=== PATIENT | male | born 1950 | race Caucasian/White ===

== ENCOUNTER → 2016-06-06 | Outpatient (CLI) | payer OTHER ==
[~2016-06-06] MED LIST: ACET-1311 PO; ADVIN25050 INH; ALBUAER INH; AMLO-114 PO; ASPI81TA28 PO; ATRINS INH; CARB25TA12 PO; CARB25TA14 PO; CARB25TA16 PO; CARB50TA3 PO; CHOL100010 PO; CHOL2000 PO; CLR/5 PO; CRD200 PO; CYM/30 PO; DOCU-94 PO; DOXY100C76 PO; FLM4 PO; FRS/40 PO; FURO-85 PO; FURO20TA PO; FURO40TA3 PO; HYDR100T12 PO; LEVA1.255 PO; LSN20 PO; LUBI8CAP4 PO; LVQ500 PO; MCRK20 PO; METH4PAK PO; METO-217 PO; METO50TA7 PO; MULT-506 PO; NRN100 PO; PANT1TAB48 PO; PANT20TA PO; POLY335019 PO; POTA20TA13 PO; PRD10 PO; PRED20TA PO; PSEU60TA80 PO; SIMV20TA2 PO; SPRIN INH; SPRIN/30 PO; VNTHFA/IN INH; XPNINS125 PO; XPNINS1255 INH
[2016-06-06 17:35] LABS: BLOOD UREA NITROGEN 14 mg/dl (7-18); BUN/CREATININE RATIO 10.1 (10-20); CALCIUM 8.5 mg/dl (8.5-10.1); CARBON DIOXIDE 28 mmol/L (21-32); CHLORIDE 105 mmol/L (98-107); GLUCOSE 129 mg/dl (70-99); POTASSIUM 3.7 mmol/L (3.5-5.1); SODIUM 144 mmol/L (136-145)
[2016-06-06 17:36] LABS: PHOSPHORUS 2.8 mg/dl (2.5-4.9)
--- NOTE | 2016-06-26 14:23 | CODING QUERY MEDICAL NECESSITY ---
SUPPORTING DIAGNOSIS NEEDED A supporting diagnosis is required for the test/procedure performed on this patient in order for us to be reimbursed by the patient's insurance. Please provide a supporting diagnosis for the following test/procedure listed below next to the test name along with your signature. *If there is no additional diagnosis for this patient that would support the following test/procedure please document that below next to the test/procedure. Test(s)/Procedure(s) that require a supporting diagnosis: * VITAMIN B-12 LEVEL DIAGNOSIS: * DOS: 06/06/16 Provider Signature: Date: Thank you Rosie Farr Health Information Management Once completed, please kindly fax back to [phone] For questions please call [phone]
== END | disposition home or self-care (01) ==
LOC: C.LABBFT 15:09
PROVIDERS: ATTEND Internal Medicine
DX: N17.9 Acute kidney failure, unspecified (principal); G62.9 Polyneuropathy, unspecified

== ENCOUNTER 2016-06-17 12:16 | Inpatient (IN) | payer OTHER ==
[~2016-06-17] VITALS: Ht 177.8 cm; Wt 100.4 kg
[~2016-06-17 12:16] MED LIST changes: -ADVIN25050 INH; -AMLO-114 PO; -ASPI81TA28 PO; -ATRINS INH; -CARB25TA12 PO; -CARB25TA14 PO; -CARB25TA16 PO; -CARB50TA3 PO; -CHOL2000 PO; -CLR/5 PO; -CRD200 PO; -CYM/30 PO; -DOXY100C76 PO; -FLM4 PO; -FRS/40 PO; -FURO-85 PO; -FURO20TA PO; -FURO40TA3 PO; -HYDR100T12 PO; -LEVA1.255 PO; -LUBI8CAP4 PO; -LVQ500 PO; -MCRK20 PO; -METH4PAK PO; -METO-217 PO; -METO50TA7 PO; -MULT-506 PO; -NRN100 PO; -PANT1TAB48 PO; -PANT20TA PO; -POTA20TA13 PO; -PRD10 PO; -PRED20TA PO; -PSEU60TA80 PO; -SIMV20TA2 PO; -SPRIN/30 PO; -VNTHFA/IN INH; -XPNINS125 PO; -XPNINS1255 INH
[2016-06-17] MEDS ORDERED: DOXY100C76 PO ×2 (13:55)
[2016-06-17] MEDS ORDERED: CARB25TA16 PO ×2 (13:55)
[2016-06-17] MEDS ORDERED: CLR/5 PO ×2 (13:55)
[2016-06-17] MEDS ORDERED: CARB25TA14 PO ×2 (13:55)
[2016-06-17] MEDS ORDERED: ALBUT/IPRATROP 3MG/0.5MG NEB 3 ML VIAL INH STA ×2 (14:14→16:47)
[2016-06-17] MEDS ORDERED: METHYLPREDNISOLONE 125 MG VIAL IV STA (14:14)
--- NOTE | 2016-06-17 14:26 | DIAGNOSTIC IMAGING REPORT ---
CHEST ONE VIEW PORTABLE CLINICAL HISTORY: EVALUATE RESPIRATORY DISTRESS. DYSPNEA COMPARISON STUDY: No previous studies for comparison. FINDINGS: Moderate cardiomegaly. Prior median sternotomy. Pulmonary vasculature is moderately prominent. IMPRESSION: Developing congestive heart failure Electronically signed by: Boni Sutton M.D. 06/17/2016 2:25 PM Dictated Date/Time: 06/17/2016 2:23 PM
[2016-06-17 15:39] LABS: URINE APPEARANCE CLEAR (CLEAR); URINE BILIRUBIN NEG (NEG); URINE COLOR YELLOW; URINE NITRITE NEG (NEG); URINE SPECIFIC GRAVITY 1.008 (1.000-1.030); UROBILINOGEN NEG (NEG)
[2016-06-17 15:42] LABS: MANUAL MICROSCOPIC REQUIRED? NO; REVIEW REQ? NO
[2016-06-17 16:09] LABS: BASO % 0.2 %; BASO ABS # 0.03 K/uL (0-0.2); COMPLETE YES; EOS % 0.1 %; HEMATOCRIT 37.3 % (42-52); IG% 0.8 %; LYMPH % 8.9 %; LYMPH ABS # 1.54 K/uL (1.2-3.4); MEAN CELL VOLUME 83.3 fL (80-100); MEAN CORPUSCULAR HEMOGLOBIN 26.6 pg (25-34); MEAN CORPUSCULAR HGB CONC 31.9 g/dl (32-36); MEAN PLATELET VOLUME 10.1 fL (7.4-10.4); MONO % 2.4 %; NEUT % 87.6 %; PLATELET COUNT 223 K/uL (130-400); RED BLOOD COUNT 4.48 M/uL (4.7-6.1); WHITE BLOOD COUNT 17.22 K/uL (4.8-10.8)
[2016-06-17 16:36] LABS: ALT/SGPT 11 U/L (12-78); AST/SGOT 19 U/L (15-37); BLOOD UREA NITROGEN 18 mg/dl (7-18); BUN/CREATININE RATIO 16.1 (10-20); CALCIUM 8.6 mg/dl (8.5-10.1); CARBON DIOXIDE 31 mmol/L (21-32); CHLORIDE 98 mmol/L (98-107); GLUCOSE 126 mg/dl (70-99); POTASSIUM 3.7 mmol/L (3.5-5.1); SODIUM 138 mmol/L (136-145)
[2016-06-17 16:47] LABS: ALB/GLOB RATIO 0.8 (0.9-2); ALKALINE PHOSPHATASE 82 U/L (45-117); CKMB/CK RATIO 6.8 (0-3.0)
[2016-06-17] MEDS ORDERED: CARB25TA12 PO ×2 (18:27)
--- NOTE | 2016-06-17 18:28 | History and Physical ---
History & Physical Date & Time of Service: Jun 17, 2016 at 18:11 Chief Complaint: Shortness Of Breath Primary Care Physician: Adonay Art M.D. History of Present Illness Source: patient, family 65yo male with history of COPD who presents with ongoing respiratory symptoms starting in April. He has had at least 3 rounds of antibiotics (amoxicillin, doxycycline, and then doxycycline again) along with 2 rounds of prednisone taper. He finished his most recent round of prednisone/doxycycline today. Despite these medications he has continued to do poorly. No fever but "felt warm" about 2 days ago. Some chills. Appetite has been poor since Thursday of last weekend. Had LE edema last week but none today. His weight at baseline is about 200 pounds; in the office recently it had climbed to as high as 220 pounds. He has had dyspnea at rest and with activity, cough, and significant fatigue. Some PND. Uses CPAP at HS but not oxygen. Has neb machine at home but has been out of the ampules. Past Medical/Surgical History PMH: 1. COPD 2. HTN 3. CAD 4. T2DM - diet controlled 5. Parkinson's disease 6. Hyperlipidemia 7. Allergic rhinitis 8. h/o paroxysmal atrial fibrillation 9. LES on CPAP at bedtime PSH: 1. appendectomy 2. CABG (double) - 2001 3. lumbar back surgery x 4 separate operations 4. inguinal hernia repair x 2 Family History mother - MGM, M aunt - CAD/MIs father - gastric cancer paternal side - some form of hematological disorder (unknown type) Social History Smoking Status: Current Every Day Smoker (<1/2 ppd; started teenager years; peak 2ppd) Smokeless Tobacco Use: No Alcohol Use: none Drug Use: none Marital Status: (in [place]; 3 children ) Housing status: lives with family Occupational Status: retired (construction/building homes ), disabled Immunizations History of Influenza Vaccine: Yes Influenza Vaccine Date: Mar 07, 2007 History of Tetanus Vaccine?: Yes Tetanus Immunization Date: Jul 19, 2010 History of Pneumococcal: Yes History of Hepatitis B Vaccine: No Multi-Drug Resistant Organisms History of MDRO: Yes Type of MDRO: MRSA Allergies Coded Allergies: BEE STING (Verified Allergy, Severe, ANAPHYLAXIS, 06/17/16) Benztropine (Verified Adverse Reaction, Intermediate, hallucinations/ mental confusion, 06/17/16) Eletriptan (Verified Adverse Reaction, Intermediate, CONFUSION, 06/17/16) Ropinirole (Verified Adverse Reaction, Unknown, unknown, 06/17/16) Home Medications Scheduled Albuterol (Proventil Hfa), 2 PUFFS INH QID Amiodarone HCl (Amiodarone HCl), 200 MG PO DAILY Amlodipine (Norvasc), 10 MG PO DAILY Aspirin (Aspirin Ec), 81 MG PO DAILY Carbidopa/Levodopa (Sinemet Cr 25MG/100MG), 2 TAB PO QAM Carbidopa/Levodopa (Sinemet 25MG/250MG), 1 TAB PO PM Carbidopa/Levodopa (Sinemet 25MG/100MG), 1 TAB PO qafternoon Cholecalciferol (Vitamin D), 4,000 INTER.UNIT PO DAILY Desloratadine (Clarinex), 5 MG PO DAILY Docusate Sodium (Colace), 100 MG PO BID Doxycycline Monohydrate (Monodox), 100 MG PO BID Duloxetine HCl (Cymbalta), 30 MG PO DAILY Fluticasone Prop/Salmeterol (Advair Diskus 250-50 Mcg/Dose), 1 PUFF INH Q12 Hydralazine Hcl (Apresoline), 1 TAB PO TID Lubiprostone (Amitiza), 8 MCG PO DAILY Metoprolol Succ (Toprol Xl) (Toprol-Xl), 75 MG PO HS Polyethylene Glycol 3350 (Miralax), 17 GM PO BID Simvastatin (Zocor), 20 MG PO QPM Tamsulosin HCl (Tamsulosin HCl), 0.4 MG PO HS Tiotropium [place] (Spiriva Handihaler), 1 PUFF INH QAM Scheduled PRN Acetaminophen (Tylenol), 650 MG PO Q6 PRN for Mild Pain Acetaminophen (Tylenol), 650 MG PO Q6 PRN for TEMP > 101 Review of Systems Constitutional: + chills, + fatigue, + fever, + weakness, + weight loss Eyes: No discharge, No redness ENT: + nasal symptoms, No sore throat, No trouble swallowing Respiratory: + cough, + dyspnea at rest, + dyspnea on exertion, + shortness of breath, + wheezing, No hemoptysis, No sputum Cardiovascular: + PND, + chest pain (tightness), + edema, + orthopnea Abdomen: No GI bleeding, No diarrhea, No nausea, No vomiting Musculoskeletal: + joint pain, + muscle pain Genitourinary - Male: No dysuria Neurologic: + balance problems, No paralysis Psychiatric: + anxiety, + depression symptoms Endocrine: + fatigue Hematologic / Lymphatic: No night sweats, No swollen lymph nodes Integumentary: + rash (groin) Physical Exam Vital Signs Date Time Temp Pulse Resp B/P Pulse Ox O2 Delivery O2 Flow Rate FiO2 06/17/16 16:47 67 18 113/50 95 Nasal Cannula 2.0 06/17/16 14:06 59 16 151/81 93 Room Air 06/17/16 12:34 95 Nasal Cannula 2.0 06/17/16 12:34 95 Nasal Cannula 2.0 06/17/16 12:34 36.5 60 22 138/77 94 Room Air General Appearance: no apparent distress, + obese, + pertinent finding ( resting tremors of upper extremities) Head: normocephalic, atraumatic Eyes: normal inspection, PERRL ENT: hearing grossly normal, TMs normal, pharynx normal Neck: supple, no adenopathy, thyroid normal, + pertinent finding (due to large neck difficult to assess JVD) Respiratory/Chest: no respiratory distress, no accessory muscle use, + crackles (both bases), + wheezing (mild end-exp) Cardiovascular: regular rate, rhythm, no gallop, no murmur, normal peripheral pulses Abdomen/GI: normal bowel sounds, non tender, soft, no organomegaly Back: normal inspection Extremities/Musculoskelatal: no pedal edema Neurologic/Psych: alert, normal mood/affect, normal reflexes, oriented x 3, + pertinent finding (mild stiffness of all 4 extremities; strength, however, is symmetric 5/5 x 4 extremities) Diagnostics Laboratory Results Results Past 24 Hours Test 06/17/16 14:25 06/17/16 15:30 06/17/16 15:43 Range/Units Influenza Type A Antigen Neg for Influ A NEG Influenza Type B Antigen Neg for Influ B NEG Urine Color YELLOW Urine Appearance CLEAR CLEAR Urine pH 8.0 4.5-7.5 Urine Specific [place] 1.008 1.000-1.030 Urine Protein NEG NEG Urine Glucose (UA) NEG NEG Urine Ketones NEG NEG Urine Occult Blood NEG NEG Urine Nitrite NEG NEG Urine Bilirubin NEG NEG Urine Urobilinogen NEG NEG Urine Leukocyte Esterase NEG NEG White Blood Count 17.22 4.8-10.8 K/uL Red Blood Count 4.48 4.7-6.1 M/uL Hemoglobin 11.9 14.0-18.0 g/dL Hematocrit 37.3 42-52 % Mean Corpuscular Volume 83.3 80-100 fL Mean Corpuscular Hemoglobin 26.6 25-34 pg Mean Corpuscular Hemoglobin Concent 31.9 32-36 g/dl Platelet Count 223 130-400 K/uL Mean Platelet Volume 10.1 7.4-10.4 fL Neutrophils (%) (Auto) 87.6 % Lymphocytes (%) (Auto) 8.9 % Monocytes (%) (Auto) 2.4 % Eosinophils (%) (Auto) 0.1 % Basophils (%) (Auto) 0.2 % Neutrophils # (Auto) 15.08 1.4-6.5 K/uL Lymphocytes # (Auto) 1.54 1.2-3.4 K/uL Monocytes # (Auto) 0.42 0.11-0.59 K/uL Eosinophils # (Auto) 0.01 0-0.5 K/uL Basophils # (Auto) 0.03 0-0.2 K/uL RDW Standard Deviation 54.1 36.4-46.3 fL RDW Coefficient of Variation 17.7 11.5-14.5 % Immature Granulocyte % (Auto) 0.8 % Immature Granulocyte # (Auto) 0.14 0.00-0.02 K/uL Sodium Level 138 136-145 mmol/L Potassium Level 3.7 3.5-5.1 mmol/L Chloride Level 98 98-107 mmol/L Carbon Dioxide Level 31 21-32 mmol/L Anion Gap 9.0 3-11 mmol/L Blood Urea Nitrogen 18 7-18 mg/dl Creatinine 1.10 0.60-1.40 mg/dl Est Creatinine Clear Calc Drug Dose 77.0 ml/min Estimated GFR () 80.1 Estimated GFR (Non- 69.1 BUN/Creatinine Ratio 16.1 10-20 Random Glucose 126 70-99 mg/dl Calcium Level 8.6 8.5-10.1 mg/dl Total Bilirubin 0.7 0.2-1 mg/dl Aspartate Amino Transf (AST/SGOT) 19 15-37 U/L Alanine Aminotransferase (ALT/SGPT) 11 12-78 U/L Alkaline Phosphatase 82 45-117 U/L Total Creatine Kinase 19 39-308 U/L Creatine Kinase MB 1.3 0.5-3.6 ng/ml Creatine Kinase MB Ratio 6.8 0-3.0 Troponin I < 0.015 0-0.045 ng/ml Pro-B-Type Natriuretic Peptide 1499 0-900 pg/ml Total Protein 7.3 6.4-8.2 gm/dl Albumin 3.3 3.4-5.0 gm/dl Globulin 4.0 2.5-4.0 gm/dl Albumin/Globulin Ratio 0.8 0.9-2 Microbiology Results 06/17/16 Blood Culture, Received Pending 06/17/16 Blood Culture, Received Pending Diagnostic Radiology cxr, portable - suspected developing pulmonary edema EKG NSR, no ST changes, prolonged QTc Impression Assessment and Plan 65yo male with h/o COPD, ongoing tobacco dependence, CAD s/p CABG, HTN, and parkinson's disease who presents with ongoing respiratory symptoms for several weeks despite multiple rounds of antibiotics and prednisone. His weight today is nearly 220 pounds; office records from 06/06/16 showed a weight of 205 pounds. Chest x-ray suggests pulmonary edema. 1. COPD with probable exacerbation - received IV steroids in the ER. Will continue these with solumedrol 40mg q8h. Scheduled nebs q6h. Pulmonary toilet/ incentive spirometry. Due to lack of sputum production and no pneumonia on chest x-ray will defer on antibiotics for now. With that said I cannot exclude a sinusitis but this is less likely. Check flu PCR due to recent fatigue, chills, etc. Continue advair /spiriva. 2. suspected acute/chronic diastolic CHF - echo from 12/2015 with preserved EF and grade 1 diastolic CHF. He has had orthopnea, weight gain, and worsening TUBBS and thus will give IV lasix tonight and reassess clinically in the AM. Check daily weights. 3. fatigue, anorexia - cannot exclude a concomitant infectious process. Blood cx's have been sent. U/a is unremarkable. Rapid flu is neg; will check PCR flu to be complete. Most recent TSH was normal. Check VBG to exclude hypercarbia. Consider repeat cxr tomorrow. 4. CAD s/p CABG - continue aspirin, BB, statin. Troponin is negative. EKG w/ o ischemic changes. 5. tobacco dependence - nicoderm patch. [employer] to quit. 6. parkinson's disease - continue sinemet - 2 tabs AM, 1 tab afternoon, 1 tab HS. 7. HTN - continue home meds. 8. h/o diet-controlled T2DM - in light of steroid use check FSBS ac/hs and place on novolog sliding with correction factor 30 and carb ratio of 1:10. Add long-acting insulin (lantus) as necessary. 9. LES - continue CPAP at HS. 10. leukocytosis - may be related to steroid use. Cannot exclude infectious process. Check sed rate. 11. prolonged QTc - check mag level. K was normal. 12. DVT proph - lovenox 40mg daily. 13. FEN - AHA/T2DM diet, BMP in am. 14. code status - full code level 1. 15. h/o a. fib - on amiodarone. Continue such. updated with plan of care. Level of Care Med/Surg Resuscitation Status FULL RESUSCITATION VTE Prophylaxis VTE Risk Assessment Done? Y/N: Yes Risk Level: Moderate Given or contraindicated: Enoxaparin (Lovenox)SQ Social Service Consult None Apply Note total visit time about 70 minutes Additional Copies To Jeromy Hanson M.D.
[2016-06-17] MEDS ORDERED: MAGNESIUM HYDROXIDE SUSP 30 ML UDC PO PRN (19:00)
[2016-06-17] MEDS ORDERED: ALUMINUM/MAGNESIUM/SIMETH (MAALOX MAX) 30 ML UDC PO PRN (19:00)
[2016-06-17] MEDS ORDERED: ACETAMINOPHEN 325 MG TAB PO PRN (19:00)
[2016-06-17] MEDS ORDERED: ONDANSETRON INJ 2 MG/ML 2 ML VIAL IV PRN (19:00)
[2016-06-17 19:18] LABS: MAGNESIUM 2.1 mg/dl (1.8-2.4)
[2016-06-17] MEDS ORDERED: FUROSEMIDE 40 MG/4 ML VIAL ONE (19:43)
[2016-06-17] MEDS ORDERED: GLUCAGON FOR INJ 1 MG VIAL SQ PRN (19:45)
[2016-06-17] MEDS ORDERED: GLUCOSE 40% GEL 15 GM TUBE PO PRN (19:45)
[2016-06-17] MEDS ORDERED: DEXTROSE 50% 50 ML SYR IV PRN (19:45)
[2016-06-17] MEDS ORDERED: GLUCOSE 10 TABS/TUBE PO PRN (19:45)
[2016-06-17 20:30] VITALS: BP 144/71; PULSE 68; TEMP 36.4; O2SAT 98; BMI 31.4
[2016-06-17] MEDS ORDERED: FUROSEMIDE INJ 20 MG in SYRINGE 0 ML IV ONE (21:00)
[2016-06-17] MEDS ORDERED: POTASSIUM CHLORIDE 20 MEQ TABCR PO ONE (21:00)
[2016-06-17] MEDS: NICOTINE 14 MG/24 HR TDSY TD SCH (21:00)
[2016-06-17 21:31] LABS: PROTHROMBIN TIME (PATIENT) 10.9 SECONDS (9.0-12.0)
--- NOTE | 2016-06-17 21:34 | EMERGENCY ROOM VISIT NOTE ---
History Report prepared by Sherrie: Evie Osman Under the Supervision of: Dr. Fox Whitt M.D. First contact with patient: 13:55 Chief Complaint: FLU LIKE SX Stated Complaint: SHORTNESS OF BREATH History of Present Illness The patient is a 65 year old male who presents to the Emergency Room with complaints of persistent shortness of breath that began several weeks ago. He currently rates his discomfort as a 2/10 in severity. The patient's notes that the patient has been on antibiotics and prednisone for a recent COPD exacerbation. She states that the patient has an inhaler to use at home. Today , the patient notes difficulty breathing, chest tightness, a nonproductive cough , headache, and increased fatigue. The patient's notes that the patient has had a recent decrease in appetite. The patient denies any history of UTIs. The patient's notes a resting tremor due to the patient's Parkinson's Disease. Pt denies LOC, fevers, chills, diaphoresis, visual changes, neck pain, chest pain, nausea, vomiting, abdominal pain, back pain, melena, hematochezia, urinary symptoms, numbness, lymphadenopathy, rash, or other complaints. Source of History: patient Onset: several weeks ago Position: other (global) Quality: other (shortness of breath) Timing: other (persistent) Associated Symptoms: + chest pain (tightness), + cough, + fatigue, + headache Note: Associated Symptoms: decrease in appetite Review of Systems See HPI for pertinent positives and negatives. A total of ten systems were reviewed and were otherwise negative. Past Medical & Surgical Medical Problems: (1) Abscess in epidural space of lumbar spine (2) Acute on chronic diastolic (congestive) heart failure (3) Back pain (4) Bronchitis (5) Bulging disc (6) Chest wall pain (7) COPD (chronic obstructive pulmonary disease) (8) COPD exacerbation (9) Fall (10) Hallucinations (11) Heart disease (12) Hyperlipidemia (13) Hypertension (14) inability to ambulate (15) Lumbar stenosis with neurogenic claudication (16) Parkinson disease (17) Parkinsons disease (18) Radicular pain of right lower extremity (19) Seizure-like activity (20) Shoulder pain Surgical Problems: (1) History of appendectomy (2) S/P CABG x 2 Family History FH: heart disease Hypertension Social History Smoking Status: Current Every Day Smoker Alcohol Use: none Drug Use: none Marital Status: Housing Status: assisted living Occupation Status: disabled Current/Historical Medications Scheduled Albuterol (Proventil Hfa), 2 PUFFS INH QID Amiodarone HCl (Amiodarone HCl), 200 MG PO DAILY Amlodipine (Norvasc), 10 MG PO DAILY Aspirin (Aspirin Ec), 81 MG PO DAILY Carbidopa/Levodopa (Sinemet Cr 25MG/100MG), 2 TAB PO QAM Carbidopa/Levodopa (Sinemet 25MG/250MG), 1 TAB PO PM Carbidopa/Levodopa (Sinemet 25MG/100MG), 1 TAB PO qafternoon Cholecalciferol (Vitamin D), 4,000 INTER.UNIT PO DAILY Desloratadine (Clarinex), 5 MG PO DAILY Docusate Sodium (Colace), 100 MG PO BID Doxycycline Monohydrate (Monodox), 100 MG PO BID Duloxetine HCl (Cymbalta), 30 MG PO DAILY Fluticasone Prop/Salmeterol (Advair Diskus 250-50 Mcg/Dose), 1 PUFF INH Q12 Hydralazine Hcl (Apresoline), 1 TAB PO TID Lubiprostone (Amitiza), 8 MCG PO DAILY Metoprolol Succ (Toprol Xl) (Toprol-Xl), 75 MG PO HS Polyethylene Glycol 3350 (Miralax), 17 GM PO BID Simvastatin (Zocor), 20 MG PO QPM Tamsulosin HCl (Tamsulosin HCl), 0.4 MG PO HS Tiotropium [place] (Spiriva Handihaler), 1 PUFF INH QAM Scheduled PRN Acetaminophen (Tylenol), 650 MG PO Q6 PRN for Mild Pain Acetaminophen (Tylenol), 650 MG PO Q6 PRN for TEMP > 101 Allergies Coded Allergies: BEE STING (Verified Allergy, Severe, ANAPHYLAXIS, 06/17/16) Benztropine (Verified Adverse Reaction, Intermediate, hallucinations/ mental confusion, 06/17/16) Eletriptan (Verified Adverse Reaction, Intermediate, CONFUSION, 06/17/16) Ropinirole (Verified Adverse Reaction, Unknown, unknown, 06/17/16) Physical Exam Vital Signs Date Time Temp Pulse Resp B/P Pulse Ox O2 Delivery O2 Flow Rate FiO2 06/17/16 16:47 67 18 113/50 95 Nasal Cannula 2.0 06/17/16 14:06 59 16 151/81 93 Room Air 06/17/16 12:34 95 Nasal Cannula 2.0 06/17/16 12:34 95 Nasal Cannula 2.0 06/17/16 12:34 36.5 60 22 138/77 94 Room Air Physical Exam GENERAL: Awake, alert, well-appearing, in no distress HENT: Normocephalic, atraumatic. Oropharynx unremarkable. EYES: Normal conjunctiva. Sclera non-icteric. NECK: Supple. No nuchal rigidity. FROM. No JVD. RESPIRATORY: Scattered wheezing and rhonchi bilaterally. CARDIAC: Regular rate, normal rhythm. Extremities warm and well perfused. Pulses equal. ABDOMEN: Soft, non-distended. No tenderness to palpation. No rebound or guarding. No masses. RECTAL: Deferred. MUSCULOSKELETAL: Chest examination reveals no tenderness. The back is symmetrical on inspection without obvious abnormality. There is no CVA tenderness to palpation. No joint edema. LOWER EXTREMITIES: 1+ lower extremity edema. Calves are equal size bilaterally and non-tender. No discoloration. NEURO: Resting tremor noted in the upper extremities Normal sensorium. No sensory or motor deficits noted. SKIN: No rash or jaundice noted. Medical Decision & Procedures ER Provider Diagnostic Interpretation: X-ray: Per my interpretation, radiologist review. CHEST ONE VIEW PORTABLE CLINICAL HISTORY: EVALUATE RESPIRATORY DISTRESS. DYSPNEA COMPARISON STUDY: No previous studies for comparison. FINDINGS: Moderate cardiomegaly. Prior median sternotomy. Pulmonary vasculature is moderately prominent. IMPRESSION: Developing congestive heart failure Electronically signed by: Boni Sutton M.D. 06/17/2016 2:25 PM Dictated Date/Time: 06/17/2016 2:23 PM Laboratory Results 06/17/16 15:43 Red Blood Count 4.48, Mean Corpuscular Volume 83.3, Mean Corpuscular Hemoglobin 26.6, Mean Corpuscular Hemoglobin Concent 31.9, Mean Platelet Volume 10.1, Neutrophils (%) (Auto) 87.6, Lymphocytes (%) (Auto) 8.9, Monocytes (%) (Auto) 2.4, Eosinophils (%) (Auto) 0.1, Basophils (%) (Auto) 0.2, Neutrophils # (Auto) 15.08, Lymphocytes # (Auto) 1.54, Monocytes # (Auto) 0.42, Eosinophils # (Auto) 0.01, Basophils # (Auto) 0.03 06/17/16 15:43 Test 06/17/16 14:25 06/17/16 15:30 06/17/16 15:43 Influenza Type A Antigen Neg for Influ A (NEG) Influenza Type B Antigen Neg for Influ B (NEG) Urine Color YELLOW Urine Appearance CLEAR (CLEAR) Urine pH 8.0 (4.5-7.5) Urine Specific [place] 1.008 (1.000-1.030) Urine Protein NEG (NEG) Urine Glucose (UA) NEG (NEG) Urine Ketones NEG (NEG) Urine Occult Blood NEG (NEG) Urine Nitrite NEG (NEG) Urine Bilirubin NEG (NEG) Urine Urobilinogen NEG (NEG) Urine Leukocyte Esterase NEG (NEG) White Blood Count 17.22 K/uL (4.8-10.8) Red Blood Count 4.48 M/uL (4.7-6.1) Hemoglobin 11.9 g/dL (14.0-18.0) Hematocrit 37.3 % (42-52) Mean Corpuscular Volume 83.3 fL (80-100) Mean Corpuscular Hemoglobin 26.6 pg (25-34) Mean Corpuscular Hemoglobin Concent 31.9 g/dl (32-36) Platelet Count 223 K/uL (130-400) Mean Platelet Volume 10.1 fL (7.4-10.4) Neutrophils (%) (Auto) 87.6 % Lymphocytes (%) (Auto) 8.9 % Monocytes (%) (Auto) 2.4 % Eosinophils (%) (Auto) 0.1 % Basophils (%) (Auto) 0.2 % Neutrophils # (Auto) 15.08 K/uL (1.4-6.5) Lymphocytes # (Auto) 1.54 K/uL (1.2-3.4) Monocytes # (Auto) 0.42 K/uL (0.11-0.59) Eosinophils # (Auto) 0.01 K/uL (0-0.5) Basophils # (Auto) 0.03 K/uL (0-0.2) RDW Standard Deviation 54.1 fL (36.4-46.3) RDW Coefficient of Variation 17.7 % (11.5-14.5) Immature Granulocyte % (Auto) 0.8 % Immature Granulocyte # (Auto) 0.14 K/uL (0.00-0.02) Erythrocyte Sedimentation Rate 23 mm/hr (0-14) Anion Gap 9.0 mmol/L (3-11) Est Creatinine Clear Calc Drug Dose 77.0 ml/min Estimated GFR () 80.1 Estimated GFR (Non- 69.1 BUN/Creatinine Ratio 16.1 (10-20) Calcium Level 8.6 mg/dl (8.5-10.1) Magnesium Level 2.1 mg/dl (1.8-2.4) Total Bilirubin 0.7 mg/dl (0.2-1) Aspartate Amino Transf (AST/SGOT) 19 U/L (15-37) Alanine Aminotransferase (ALT/SGPT) 11 U/L (12-78) Alkaline Phosphatase 82 U/L (45-117) Total Creatine Kinase 19 U/L (39-308) Creatine Kinase MB 1.3 ng/ml (0.5-3.6) Creatine Kinase MB Ratio 6.8 (0-3.0) Troponin I < 0.015 ng/ml (0-0.045) Pro-B-Type Natriuretic Peptide 1499 pg/ml (0-900) Total Protein 7.3 gm/dl (6.4-8.2) Albumin 3.3 gm/dl (3.4-5.0) Globulin 4.0 gm/dl (2.5-4.0) Albumin/Globulin Ratio 0.8 (0.9-2) Laboratory results reviewed by me Medications Administered Medications (Trade) Dose Ordered Sig/Igor Route Start Time Stop Time Status Last Admin Dose Admin Albuterol/ Ipratropium (Duoneb) 3 ml NOW STAT INH 06/17/16 14:14 06/17/16 14:16 DC 06/17/16 14:48 3 ML Methylprednisolone Sodium Succinate (Solu-Medrol IV) 125 mg NOW STAT IV 06/17/16 14:14 06/17/16 14:16 DC 06/17/16 14:48 125 MG Albuterol/ Ipratropium (Duoneb) 3 ml NOW STAT INH 06/17/16 16:47 06/17/16 16:48 DC 06/17/16 17:11 3 ML ECG Indication: SOB/dyspnea Rate (beats per minute): 59 Rhythm: sinus bradycardia Findings: PVC, no acute ischemic change, prolonged QT ED Course 1413: The patient was evaluated in room C1B. A complete history and physical exam was performed. 1414: Ordered Solu-Medrol IV 125 mg IV, DuoNeb 3 ml INH. 1540: I reevaluated the patient and he is feeling a little bit better after the breathing treatment. 1647: Ordered DuoNeb 3 ml INH. 1735: I reevaluated the patient and he is resting comfortably. I discussed the exam findings with him and his and I discussed the treatment plan. He verbalized complete understanding and agreement. He will be evaluated for further treatment. 173: I discussed the patients case with ADRIANO Tirado. He is going to evaluate the patient for further treatment. Medical Decision Triage Nursing notes reviewed. The patient's presentation and history were concerning for respiratory issues and lack of improvement with outpatient treatment. Etiologies such as pneumonia, COPD, reactive airway disease, CHF, cardiac ischemia, pulmonary embolism, pneumothorax, musculoskeletal, infections, gastrointestinal, as well as others were entertained. The patient was evaluated. Unfortunately despite antibiotics and prednisone to his breathing issues have worsened. He was given a DuoNeb 2 and Solu-Medrol. Chest x-ray was performed and was concerning for some mild CHF. CBC revealed a leukocytosis. The patient is currently taking prednisone. Urinalysis flu testing, and chemistry panel unremarkable. Cardiac markers were negative. BNP was moderately elevated. Given the x-ray, BNP, and his physical examination was performed edema there was concerns about new onset CHF in addition to his history of COPD. Further evaluation and management will be necessary in the hospital to further elucidate issue. The patient and family were in agreement. Internal medicine was consulted. Patient was evaluated for further management. The chart was completed utilizing [employer] Speech voice recognition software. Grammatical errors, random word insertions, pronoun errors, and incomplete sentences are an occasional consequence of this system due to software limitations, ambient noise, and hardware issues. Any formal questions or concerns about the content, text, or information contained within the body of this dictation should be directly addressed to the physician for clarification. Consults Time Called: 1737 Consulting Physician: ADRIANO Tirado Returned Call: [phone] I discussed the patients case with ADRIANO Tirado. He is going to evaluate the patient for further treatment. Impression Primary Impression: Shortness of breath Additional Impressions: New onset of congestive heart failure COPD (chronic obstructive pulmonary disease) Weakness Scribe Attestation The scribe's documentation has been prepared under my direction and personally reviewed by me in its entirety. I confirm that the note above accurately reflects all work, treatment, procedures, and medical decision making performed by me. Departure Information Dispostion Being Evaluated By Hospitalist Prescriptions Carbidopa/Levodopa (Sinemet 25MG/100MG) Tab 1 TAB PO qafternoon, #30 TAB 1 Refill Prov: Shayne Rosen MD 06/17/16 Referrals Jeromy Hanson M.D. (PCP) Problem Qualifiers
[2016-06-17 21:40] LABS: VEN BLD GAS O2 SATURATION 72.7 %; VEN BLOOD GAS BASE EXCESS 6.7 mmol/L
[2016-06-17 21:43] VITALS: PULSE 76; O2SAT 96
[2016-06-17] MEDS: ALBUT/IPRATROP 3MG/0.5MG NEB 3 ML VIAL INH SCH (21:43)
[2016-06-17] MEDS: NYSTATIN POWDER 15GM BTL EXT SCH (22:13)
[2016-06-17] MEDS: FLUTICASONE/SALMETEROL 250/50 (ADVAIR) 14 PUFF/1 INHALER INH SCH (22:14)
[2016-06-17 22:16] VITALS: BP 123/85; PULSE 81
[2016-06-17] MEDS: DOCUSATE SODIUM 100 MG CAP PO SCH (22:18)
[2016-06-17] MEDS: TAMSULOSIN HCL 0.4 MG CAP PO SCH (22:18)
[2016-06-17] MEDS: POLYETHYLENE (MIRALAX) 17 GM PACK PO SCH (22:19)
[2016-06-17] MEDS: GUAIFENESIN 600 MG TABCR PO SCH (22:21)
[2016-06-17] MEDS: CARBIDOPA/LEVODOPA 25-250 1 EA TAB PO SCH (22:21)
[2016-06-17] MEDS: METOPROLOL SUCC 25MG EXT REL TAB PO SCH (22:22)
[2016-06-17] MEDS: METHYLPREDNISOLONE IV 40 MG in SYRINGE 0 ML IV SCH (22:23)
[2016-06-17] MEDS: SIMVASTATIN 20 MG TAB PO SCH (22:23)
[2016-06-17] MEDS: ACETAMINOPHEN 325 MG TAB PO PRN (22:43)
[2016-06-17] MEDS: ENOXAPARIN 40 MG/0.4 ML SYR SQ SCH (22:44)
[2016-06-17] MEDS: INSULIN ASPART 100 UNITS/ML 3 ML PEN SC SCH (22:50)
[2016-06-17 23:28] VITALS: BP 108/61; PULSE 71; TEMP 36.4; O2SAT 96
[2016-06-18] VITALS (8 sets, daily range): BP systolic 130–132; BP diastolic 59–69; PULSE 62–106; TEMP 36.3–37.1; O2SAT 95–98
[2016-06-18 01:43] LABS: INFLUENZA A PCR Neg for Influ A (NEG); INFLUENZA B PCR Neg for Influ B (NEG)
[2016-06-18] MEDS ORDERED: PNEUMOCOCCAL ADMINISTRATION CHARGE ONE (04:15)
[2016-06-18] MEDS ORDERED: PNEUMOCOCCAL POLYSACCHARIDES 25 MCG/0.5 ML VIAL/SYR IM. ONE (04:15)
[2016-06-18] MEDS: METHYLPREDNISOLONE IV 40 MG in SYRINGE 0 ML IV SCH ×2 (05:40→12:58)
[2016-06-18] MEDS: TIOTROPIUM BROMIDE 5 PUFF/90 MCG INH INH SCH (07:59)
[2016-06-18] MEDS: FLUTICASONE/SALMETEROL 250/50 (ADVAIR) 14 PUFF/1 INHALER INH SCH ×2 (07:59→21:34)
[2016-06-18] MEDS: LORATADINE 10 MG TAB PO SCH (08:00)
[2016-06-18] MEDS: AMLODIPINE BESYLATE 5 MG TAB PO SCH (08:00)
[2016-06-18] MEDS: PANTOprazole SOD 40 MG TAB PO SCH (08:01)
[2016-06-18] MEDS: DOCUSATE SODIUM 100 MG CAP PO SCH ×2 (08:01→21:37)
[2016-06-18] MEDS: CHOLECALCIFEROL 1000 INTER.UNIT TAB PO SCH (08:01)
[2016-06-18] MEDS: CARBIDOPA/LEVODOPA 25/100MG EXT REL TAB PO SCH (08:01)
[2016-06-18] MEDS: ASPIRIN 81 MG ECTAB PO SCH (08:02)
[2016-06-18] MEDS: LUBIPROSTONE 8 MCG CAP PO SCH (08:02)
[2016-06-18] MEDS: DULOXETINE (CYMBALTA) 30 MG CAP PO SCH (08:02)
[2016-06-18] MEDS: AMIODARONE 200 MG TAB PO SCH (08:02)
[2016-06-18] MEDS: GUAIFENESIN 600 MG TABCR PO SCH ×2 (08:03→21:37)
[2016-06-18] MEDS: POLYETHYLENE (MIRALAX) 17 GM PACK PO SCH ×2 (08:03→21:40)
[2016-06-18] MEDS: NYSTATIN POWDER 15GM BTL EXT SCH ×3 (08:04→21:34)
[2016-06-18] MEDS: NICOTINE 14 MG/24 HR TDSY TD SCH (08:04)
[2016-06-18] MEDS: ALBUT/IPRATROP 3MG/0.5MG NEB 3 ML VIAL INH SCH ×4 (08:10→19:43)
[2016-06-18] MEDS: INSULIN ASPART 100 UNITS/ML 3 ML PEN SC SCH ×4 (08:18→21:43)
[2016-06-18 08:56] LABS: BUN/CREATININE RATIO 21.9 (10-20); CALCIUM 8.9 mg/dl (8.5-10.1); CREATININE 1.4 mg/dl (0.60-1.40); POTASSIUM 4.1 mmol/L (3.5-5.1)
--- NOTE | 2016-06-18 14:38 | DIAGNOSTIC IMAGING REPORT ---
CT SCAN OF THE PARANASAL SINUSES CLINICAL HISTORY: Frontal sinus pain/pressure. COMPARISON STUDY: CT of the brain dated 03/30/2016. TECHNIQUE: High-resolution CT scan of the paranasal sinuses is performed. Images are reviewed in the axial, sagittal, and coronal planes. IV contrast was not administered for this examination. CT DOSE: 317.36 mGycm FINDINGS: Maxillary antra: Trace dependent mucosal thickening is seen on the right. Clear on the left. Anterior ethmoid sinuses: Clear. Posterior ethmoid sinuses: Clear. Sphenoid sinuses: Clear. Frontal sinuses: Trace mucosal thickening is seen bilaterally. Ostiomeatal complexes: Patent bilaterally. Frontoethmoidal and sphenoethmoidal recesses: Patent bilaterally. Carotid arteries: The carotid arteries are protuberant. There is a thin bony covering on the right. There may be uncovering on the left. A septal attachment is noted on the right. Ethmoid roofs: There is asymmetric elevation of the left ethmoid roof as compared to the right. Nasal turbinates: Normal in appearance. Nasal septum: There is leftward deviation of the bony nasal septum. Optic nerves: Covered. Orbits: The bony orbits are intact. Orbital contents are normal in appearance. Skeletal structures: The skeletal structures are osteopenic. The imaged calvarium is normal in appearance. Cervical spondylosis is partially imaged. Dentition: Numerous dental caries are identified. Mastoid air cells: There is opacification of the mastoid air cells. Fluid is also seen within the middle ear bilaterally. Debris is noted within the right external auditory canal. Brain parenchyma: Partially visualized brain parenchyma is within normal limits. There is atherosclerotic calcification of the cavernous carotid arteries. IMPRESSION: 1. No significant paranasal sinus disease. See above. 2. Large mastoid effusions with fluid noted in the middle ear bilaterally. 3. Numerous dental caries are identified. Follow-up with dentistry is recommended. Electronically signed by: Song Chambers M.D. 06/18/2016 2:37 PM Dictated Date/Time: 06/18/2016 2:33 PM
--- NOTE | 2016-06-18 14:49 | DIAGNOSTIC IMAGING REPORT ---
CHEST CT WITHOUT CONTRAST CT DOSE: 708.71 mGycm HISTORY: Dyspnea bibasilar rales TECHNIQUE: Multiaxial CT images of the chest were performed without contrast. COMPARISON: 10/30/2014 FINDINGS: Moderate abscess chronic change thoracic aorta. Prior median sternotomy. Calcification the coronary arterial vasculature. Mild pulmonary vascular congestion. Trace pleural fluid both lung bases. Gallstone is identified within the gallbladder lumen. Nodular density left adrenal is unchanged. Mild hyperplasia of the left adrenal is also similar IMPRESSION: 1. Pulmonary vascular congestion. 2. Mild stable cardiomegaly. 3. Trace pleural fluid both lung bases. 4. 6 mm low suspicion nodule versus round atelectasis left posterior gastric angle. 5. Stable hyperplastic change left adrenal Please refer to below summary of Fleischner criteria recommendations for follow-up of incidental CT nodules ([place], Guidelines for management of small pulmonary nodules detected on CT scans: A statement from the Fleischner Society, Radiology 237: [phone].) Low Risk Patient: Minimal or no smoking or other known risk factors for malignancy <=4 mm: No follow-up needed. >4-6 mm: Initial follow-up CT at 12 months; if unchanged, no further follow-up. >6-8 mm: Initial follow-up CT at 6-12 months then at 18-24 months if no change. >8 mm: Follow-up CT at \R\3, 9, 24 months, or PET and/or biopsy. High Risk Patient: History of smoking or other known risk factors <=4 mm: Follow-up at 12 months; if unchanged, no further follow-up. >4-6 mm: Initial follow-up CT at 6-12 months then at 18-24 months if no change. >6-8 mm: Initial follow-up CT at 3-6 months then at 9-12 and 24 months if no change. >8 mm: Same as low risk patient. Note: Nodule size measured as average of length and width. Ground glass or partly solid nodules may require longer follow-up to exclude indolent adenocarcinoma. Electronically signed by: Boni Sutton M.D. 06/18/2016 2:48 PM Dictated Date/Time: 06/18/2016 2:43 PM
[2016-06-18] MEDS ORDERED: FUROSEMIDE INJ 20 MG in SYRINGE 0 ML IV SCH (15:45)
[2016-06-18] MEDS: ACETAMINOPHEN 325 MG TAB PO PRN (15:46)
[2016-06-18] MEDS: CARBIDOPA/LEVODOPA 25/100MG TAB PO SCH (15:48)
--- NOTE | 2016-06-18 17:55 | Progress Note ---
Subjective Date of Service: Jun 18, 2016. Subjective Pt evaluation today including: conversation w/ patient, physical exam, chart review, lab review, review of studies (sinus and chest CT), review of inpatient medication list Pain: mild frontal headache, like "my hat is on" PO Intake: improved/normal Voiding: luz catheter in place Pt states "I feel a bit better today." Still with cough and chest tightness but not as short of breath. Denies any new complaints otherwise. Problem List Medical Problems: (1) Altered mental status Status: Acute (2) Altered mental status Status: Acute (3) COPD (chronic obstructive pulmonary disease) Status: Chronic (4) Cough Status: Acute (5) Generalized weakness Status: Acute (6) Intractable pain Status: Acute (7) Leukocytosis Status: Acute (8) Low back pain Status: Acute (9) Lumbar disc disease Status: Acute (10) New onset of congestive heart failure Status: Acute (11) New onset seizure Status: Acute (12) Parkinson's disease Status: Acute (13) Parkinson's disease (tremor, stiffness, slow motion, unstableposture) Status: Acute (14) Post op infection Status: Acute (15) Right hip pain Status: Acute (16) Sciatica Status: Acute (17) Sepsis Status: Acute (18) Shaking Status: Acute (19) Shortness of breath Status: Acute (20) Weakness Status: Acute Review of Systems Constitutional: No fever Respiratory: No dyspnea at rest Cardiac: + see HPI, No PND, No edema Abdomen: No pain Objective Vital Signs Date Time Temp Pulse Resp B/P Pulse Ox O2 Delivery O2 Flow Rate FiO2 06/18/16 16:00 Nasal Cannula 2.0 06/18/16 15:57 36.4 69 20 132/66 98 06/18/16 11:20 93 20 95 Nasal Cannula 2.0 06/18/16 08:00 97 Nasal Cannula 2.0 06/18/16 07:20 77 20 97 Nasal Cannula 2.0 06/18/16 06:57 37.1 62 18 130/69 95 Nasal Cannula 2.0 06/18/16 01:10 71 95 2.0 06/18/16 00:00 Nasal Cannula 2.0 06/17/16 23:28 36.4 71 18 108/61 96 2.0 06/17/16 22:16 81 123/85 06/17/16 21:43 76 18 96 Nasal Cannula 2.0 06/17/16 20:30 36.4 68 20 144/71 98 Nasal Cannula 2.0 06/17/16 20:09 36.5 70 20 135/69 95 06/17/16 19:58 70 20 135/69 95 Nasal Cannula 2.0 Physical Exam General Appearance: no apparent distress ENT: pharynx normal, + pertinent finding (poor dentition ) Neck: no JVD Respiratory/Chest: no respiratory distress, no accessory muscle use, + crackles (b/l bases) Cardiovascular: regular rate, rhythm, no gallop, no murmur Abdomen: normal bowel sounds, non tender, soft, no organomegaly Extremities: no pedal edema Neurologic/Psychiatric: alert, oriented x 3, + pertinent finding (resting tremors b/l arms) Laboratory Results Last 24 Hours Test 06/17/16 21:10 06/17/16 22:14 06/18/16 00:00 06/18/16 07:29 Venous Blood pH 7.46 Venous Blood Partial Pressure CO2 46 mmHg Venous Blood Partial Pressure O2 39 mmHg Venous Blood HCO3 31 mmol/L Venous Blood Oxygen Saturation 72.7 % Venous Blood Base Excess 6.7 mmol/L Bedside Glucose 156 mg/dl 136 mg/dl Influenza Type A (RT-PCR) Neg for Influ A Influenza Type B (RT-PCR) Neg for Influ B Test 06/18/16 07:38 06/18/16 11:32 06/18/16 16:23 Sodium Level 138 mmol/L Potassium Level 4.1 mmol/L Chloride Level 99 mmol/L Carbon Dioxide Level 29 mmol/L Anion Gap 10.0 mmol/L Blood Urea Nitrogen 31 mg/dl Creatinine 1.40 mg/dl Est Creatinine Clear Calc Drug Dose 60.5 ml/min Estimated GFR () 59.8 Estimated GFR (Non- 51.6 BUN/Creatinine Ratio 21.9 Random Glucose 137 mg/dl Calcium Level 8.9 mg/dl Bedside Glucose 147 mg/dl 130 mg/dl Assessment and Plan 65yo male with h/o COPD, ongoing tobacco dependence, CAD s/p CABG, HTN, and parkinson's disease with: 1. COPD with probable exacerbation - continue IV steroids but cut to q12h. Cont nebs, inhalers, O2, etc. 2. suspected acute/chronic diastolic CHF - echo from 12/2015 with preserved EF and grade 1 diastolic CHF. Weight today is nearly 220; baseline weight about 205#. CT chest with pulmonary edema; no pneumonia, mass or ILD. Continue diuresis. Continue beta jair. 3. fatigue, anorexia, headache - sinus CT without sinusitis. ESR normal. Send sputum cx to exclude infectious bronchitis. VBG without hypercarbia. U/a without suggestion of UTI. 4. CAD s/p CABG - continue aspirin, BB, statin. No ischemic symptoms. 5. tobacco dependence - nicoderm patch. Investigation Division Lieutenant to quit. 6. parkinson's disease - continue sinemet - 2 tabs AM, 1 tab afternoon, 1 tab HS. 7. HTN - continue home meds. Controlled. 8. h/o diet-controlled T2DM - controlled with prn novolog with meals/HS. 9. LES - continue CPAP at HS. 10. leukocytosis - may be related to steroid use. Sed rate essentially normal. Recheck CBC am. 11. prolonged QTc - K/Mag both normal. repeat ekg in AM. 12. DVT proph - lovenox 40mg daily. 13. FEN - AHA/T2DM diet, BMP in am. 14. h/o a. fib - on amiodarone. In NSR. PT, OT consultations Continued [facility] stay due to: multiple IV medications needed
[2016-06-18] MEDS: METOPROLOL SUCC 25MG EXT REL TAB PO SCH (21:37)
[2016-06-18] MEDS: CARBIDOPA/LEVODOPA 25-250 1 EA TAB PO SCH (21:37)
[2016-06-18] MEDS: TAMSULOSIN HCL 0.4 MG CAP PO SCH (21:38)
[2016-06-18] MEDS: SIMVASTATIN 20 MG TAB PO SCH (21:39)
[2016-06-18] MEDS: ENOXAPARIN 40 MG/0.4 ML SYR SQ SCH (21:43)
[2016-06-18] MEDS ORDERED: FUROSEMIDE INJ 20 MG in SYRINGE 0 ML IV ONE (21:45)
[2016-06-19] VITALS (8 sets, daily range): BP systolic 109–120; BP diastolic 63–71; PULSE 63–74; TEMP 36.3–36.9; O2SAT 96–100
[2016-06-19] MEDS ORDERED: METHYLPREDNISOLONE IV 40 MG in SYRINGE 0 ML IV SCH (02:00)
[2016-06-19] MEDS: ALBUT/IPRATROP 3MG/0.5MG NEB 3 ML VIAL INH SCH ×4 (07:19→20:22)
[2016-06-19] MEDS: NYSTATIN POWDER 15GM BTL EXT SCH ×3 (07:47→21:04)
[2016-06-19] MEDS: FLUTICASONE/SALMETEROL 250/50 (ADVAIR) 14 PUFF/1 INHALER INH SCH ×2 (07:47→21:04)
[2016-06-19] MEDS: TIOTROPIUM BROMIDE 5 PUFF/90 MCG INH INH SCH (07:47)
[2016-06-19] MEDS: LUBIPROSTONE 8 MCG CAP PO SCH (07:48)
[2016-06-19] MEDS: LORATADINE 10 MG TAB PO SCH (07:48)
[2016-06-19] MEDS: AMIODARONE 200 MG TAB PO SCH (07:48)
[2016-06-19] MEDS: GUAIFENESIN 600 MG TABCR PO SCH ×2 (07:48→21:09)
[2016-06-19] MEDS: DULOXETINE (CYMBALTA) 30 MG CAP PO SCH (07:49)
[2016-06-19] MEDS: CARBIDOPA/LEVODOPA 25/100MG EXT REL TAB PO SCH (07:49)
[2016-06-19] MEDS: PANTOprazole SOD 40 MG TAB PO SCH (07:50)
[2016-06-19] MEDS: AMLODIPINE BESYLATE 5 MG TAB PO SCH (07:50)
[2016-06-19] MEDS: ASPIRIN 81 MG ECTAB PO SCH (07:50)
[2016-06-19] MEDS: CHOLECALCIFEROL 1000 INTER.UNIT TAB PO SCH (07:51)
[2016-06-19] MEDS: DOCUSATE SODIUM 100 MG CAP PO SCH ×2 (07:51→21:09)
[2016-06-19] MEDS: NICOTINE 14 MG/24 HR TDSY TD SCH (07:51)
[2016-06-19] MEDS: POLYETHYLENE (MIRALAX) 17 GM PACK PO SCH ×2 (07:52→21:10)
[2016-06-19 07:59] LABS: MEAN CELL VOLUME 81.4 fL (80-100); MEAN CORPUSCULAR HEMOGLOBIN 26.5 pg (25-34); MEAN CORPUSCULAR HGB CONC 32.5 g/dl (32-36); MEAN PLATELET VOLUME 10.1 fL (7.4-10.4); PLATELET COUNT 218 K/uL (130-400); RED BLOOD COUNT 3.93 M/uL (4.7-6.1); WHITE BLOOD COUNT 20.43 K/uL (4.8-10.8)
[2016-06-19] MEDS: INSULIN ASPART 100 UNITS/ML 3 ML PEN SC SCH ×4 (08:04→22:16)
[2016-06-19 08:32] LABS: BUN/CREATININE RATIO 25.5 (10-20); CALCIUM 8.4 mg/dl (8.5-10.1); CREATININE 1.5 mg/dl (0.60-1.40); MAGNESIUM 2.5 mg/dl (1.8-2.4); POTASSIUM 4.2 mmol/L (3.5-5.1)
[2016-06-19] MEDS ORDERED: FUROSEMIDE INJ 20 MG in SYRINGE 0 ML IV SCH ×2 (09:00→17:00)
--- NOTE | 2016-06-19 10:06 | Clinical Documentation Query ---
CLINICAL DOCUMENTATION QUERY Dr. 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 The medical record reflects the following clinical findings, treatment, and risk factors. Clinical Indicators: 65 yo male presenting with COPD exacerbation and suspected acute diastolic CHF exacerbation. Presenting BUN 18, Cr 1.10, GFR 69.1, which has trended to Cr 1.50, GFR 47.5. Review of historical data reveals baseline Cr of 1.10 and GFR of 51-69. Treatment: monitor PRP's, I/O Risk Factors: IV diuresis due to acute CHF, HTN, CAD Please clarify and document your clinical opinion in the progress notes and discharge summary. Terms such as "probable", "suspected", "likely", "questionable", "possible", or "still to be ruled out" are acceptable. IF IN AGREEMENT, YOU MUST DOCUMENT ABOVE DIAGNOSTIC STATEMENT IN DAILY PROGRESS NOTES AND DISCHARGE SUMMARY. This document is not part of the patient's record. Thank You, Gisel Graham, RN [phone]
[2016-06-19] MEDS: CARBIDOPA/LEVODOPA 25/100MG TAB PO SCH (16:21)
--- NOTE | 2016-06-19 18:31 | Progress Note ---
Subjective Date of Service: Jun 19, 2016. Subjective Pt evaluation today including: conversation w/ patient, conversation w/ family ( at bedside), physical exam, chart review, lab review, review of studies ( CT sinus, CT chest), review of inpatient medication list Pain: denies PO Intake: normal/good Voiding: luz catheter in place No issues overnight He feels better Less cough Less congestion Less dyspnea Slept decently last night Refused physical therapy this am per staff Problem List Medical Problems: (1) Altered mental status Status: Acute (2) Altered mental status Status: Acute (3) COPD (chronic obstructive pulmonary disease) Status: Chronic (4) Cough Status: Acute (5) Generalized weakness Status: Acute (6) Intractable pain Status: Acute (7) Leukocytosis Status: Acute (8) Low back pain Status: Acute (9) Lumbar disc disease Status: Acute (10) New onset of congestive heart failure Status: Acute (11) New onset seizure Status: Acute (12) Parkinson's disease Status: Acute (13) Parkinson's disease (tremor, stiffness, slow motion, unstableposture) Status: Acute (14) Post op infection Status: Acute (15) Right hip pain Status: Acute (16) Sciatica Status: Acute (17) Sepsis Status: Acute (18) Shaking Status: Acute (19) Shortness of breath Status: Acute (20) Weakness Status: Acute Review of Systems Constitutional: No chills, No fever Respiratory: + cough, No dyspnea at rest, No hemoptysis Cardiac: No chest pain, No orthopnea Abdomen: No pain Objective Vital Signs Date Time Temp Pulse Resp B/P Pulse Ox O2 Delivery O2 Flow Rate FiO2 06/19/16 15:49 36.3 66 19 109/63 100 Nasal Cannula 2.0 06/19/16 15:40 63 20 96 Nasal Cannula 2.0 06/19/16 11:27 74 20 97 Nasal Cannula 2.0 06/19/16 08:37 74 20 97 Nasal Cannula 2.0 06/19/16 08:00 96 Nasal Cannula 2.0 CPAP 06/19/16 07:15 36.9 72 19 120/71 96 CPAP 06/19/16 00:44 74 97 2.0 06/19/16 00:01 CPAP 06/18/16 23:42 36.3 106 16 132/59 95 06/18/16 19:43 74 20 96 Nasal Cannula 2.0 Physical Exam General Appearance: no apparent distress, + pertinent finding (resting tremors) ENT: + pertinent finding (MM dry) Neck: no JVD Respiratory/Chest: no respiratory distress, no accessory muscle use, + rales ( both bases but much improved) Cardiovascular: regular rate, rhythm, no gallop, no murmur Abdomen: normal bowel sounds, non tender, soft, no organomegaly Extremities: no pedal edema Neurologic/Psychiatric: alert, oriented x 3, + pertinent finding (tremors of arms) Laboratory Results Last 24 Hours Test 06/18/16 19:55 06/19/16 07:34 06/19/16 07:35 06/19/16 11:18 Bedside Glucose 87 mg/dl 142 mg/dl 175 mg/dl White Blood Count 20.43 K/uL Red Blood Count 3.93 M/uL Hemoglobin 10.4 g/dL Hematocrit 32.0 % Mean Corpuscular Volume 81.4 fL Mean Corpuscular Hemoglobin 26.5 pg Mean Corpuscular Hemoglobin Concent 32.5 g/dl RDW Standard Deviation 53.4 fL RDW Coefficient of Variation 17.8 % Platelet Count 218 K/uL Mean Platelet Volume 10.1 fL Sodium Level 139 mmol/L Potassium Level 4.2 mmol/L Chloride Level 100 mmol/L Carbon Dioxide Level 30 mmol/L Anion Gap 9.0 mmol/L Blood Urea Nitrogen 38 mg/dl Creatinine 1.50 mg/dl Est Creatinine Clear Calc Drug Dose 56.1 ml/min Estimated GFR () 55.0 Estimated GFR (Non- 47.5 BUN/Creatinine Ratio 25.5 Random Glucose 145 mg/dl Calcium Level 8.4 mg/dl Magnesium Level 2.5 mg/dl Test 06/19/16 16:39 Bedside Glucose 311 mg/dl Assessment and Plan 65yo male with h/o COPD, ongoing tobacco dependence, CAD s/p CABG, HTN, and parkinson's disease with: 1. COPD with probable exacerbation - resolving. Stop IV steroids Change to prednisone tomorrow and wean off. Nebs/supportive care. 2. acute/chronic diastolic CHF - IMPROVED. Echo from 12/2015 with preserved EF and grade 1 diastolic CHF. Weight today is nearly 214 #; baseline weight about 205#. CT chest with pulmonary edema; no pneumonia, mass or ILD. Continue diuresis - lasix 20 IV BID. Continue beta jair. 3. fatigue, anorexia, headache - sinus CT without sinusitis. ESR normal. Sent sputum cx to exclude infectious bronchitis. VBG without hypercarbia. U/a without suggestion of UTI. 4. CAD s/p CABG - continue aspirin, BB, statin. No ischemic symptoms. 5. tobacco dependence - nicoderm patch. 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 6. parkinson's disease - continue sinemet - 2 tabs AM, 1 tab afternoon, 1 tab HS. PT, OT to maintain function. 7. HTN - continue home meds. Controlled. 8. h/o diet-controlled T2DM - uncontrolled; tighten carb coverage & correction. Add lantus 10 units HS. 9. LES - continue CPAP at HS. 10. leukocytosis - may be related to steroid use. Sed rate essentially normal. WBC count high but pt clinically improved. Repeat cbc in 2-3 days. 11. prolonged QTc - K/Mag both normal. repeat ekg pending. 12. DVT proph - lovenox 40mg daily. 13. FEN - AHA/T2DM diet, BMP stable; repeat lytes in AM. 14. h/o a. fib - on amiodarone. In NSR. If patient's pulmonary symptoms fail to improve despite diuresis...could CT findings reflect fibrosis from amiodarone? Follow. PT, OT consultations appreciated. Patient encouraged to participate. updated at bedside today. Continued [facility] stay due to: multiple IV medications needed Discharge planning: home
[2016-06-19] MEDS ORDERED: INSULIN GLARGINE SOLOSTAR 100 UNITS/ML 3 ML PEN SC SCH (21:00)
[2016-06-19] MEDS: CARBIDOPA/LEVODOPA 25-250 1 EA TAB PO SCH (21:08)
[2016-06-19] MEDS: TAMSULOSIN HCL 0.4 MG CAP PO SCH (21:08)
[2016-06-19] MEDS: METOPROLOL SUCC 25MG EXT REL TAB PO SCH (21:09)
[2016-06-19] MEDS: SIMVASTATIN 20 MG TAB PO SCH (21:09)
[2016-06-19] MEDS: ENOXAPARIN 40 MG/0.4 ML SYR SQ SCH (22:17)
[2016-06-20] VITALS (10 sets, daily range): BP systolic 109–121; BP diastolic 49–78; PULSE 66–78; TEMP 36.4–37; O2SAT 94–98; Ht 177.8 cm; Wt 100.4 kg
[2016-06-20] MEDS: ACETAMINOPHEN 325 MG TAB PO PRN ×2 (02:31→12:53)
[2016-06-20 06:04] LABS: HEMATOCRIT 30.7 % (42-52); MEAN CELL VOLUME 82.3 fL (80-100); MEAN CORPUSCULAR HEMOGLOBIN 26.3 pg (25-34); MEAN CORPUSCULAR HGB CONC 31.9 g/dl (32-36); MEAN PLATELET VOLUME 9.6 fL (7.4-10.4); PLATELET COUNT 187 K/uL (130-400); RED BLOOD COUNT 3.73 M/uL (4.7-6.1); WHITE BLOOD COUNT 20.23 K/uL (4.8-10.8)
[2016-06-20 06:38] LABS: CREATININE 1.8 mg/dl (0.60-1.40)
[2016-06-20] MEDS: ALBUT/IPRATROP 3MG/0.5MG NEB 3 ML VIAL INH SCH ×3 (07:15→20:00)
[2016-06-20] MEDS: TIOTROPIUM BROMIDE 5 PUFF/90 MCG INH INH SCH (07:54)
[2016-06-20] MEDS: FLUTICASONE/SALMETEROL 250/50 (ADVAIR) 14 PUFF/1 INHALER INH SCH ×2 (07:54→21:57)
[2016-06-20] MEDS: NYSTATIN POWDER 15GM BTL EXT SCH ×3 (07:55→21:58)
[2016-06-20] MEDS: DOCUSATE SODIUM 100 MG CAP PO SCH ×2 (07:56→22:01)
[2016-06-20] MEDS: AMLODIPINE BESYLATE 5 MG TAB PO SCH (07:56)
[2016-06-20] MEDS: ASPIRIN 81 MG ECTAB PO SCH (07:56)
[2016-06-20] MEDS: PANTOprazole SOD 40 MG TAB PO SCH (07:57)
[2016-06-20] MEDS: GUAIFENESIN 600 MG TABCR PO SCH ×2 (07:57→21:59)
[2016-06-20] MEDS: CHOLECALCIFEROL 1000 INTER.UNIT TAB PO SCH (07:57)
[2016-06-20] MEDS: LUBIPROSTONE 8 MCG CAP PO SCH (07:58)
[2016-06-20] MEDS: LORATADINE 10 MG TAB PO SCH (07:58)
[2016-06-20] MEDS: DULOXETINE (CYMBALTA) 30 MG CAP PO SCH (07:58)
[2016-06-20] MEDS: AMIODARONE 200 MG TAB PO SCH (07:59)
[2016-06-20] MEDS: CARBIDOPA/LEVODOPA 25/100MG EXT REL TAB PO SCH (08:00)
[2016-06-20] MEDS: POLYETHYLENE (MIRALAX) 17 GM PACK PO SCH ×2 (08:00→21:58)
[2016-06-20] MEDS: NICOTINE 14 MG/24 HR TDSY TD SCH (08:01)
[2016-06-20] MEDS: INSULIN ASPART 100 UNITS/ML 3 ML PEN SC SCH ×4 (09:07→22:04)
--- NOTE | 2016-06-20 12:44 | Hospitalist Progress Note ---
Hospitalist Progress Note Date of Service Jun 20, 2016. (Ashley Aguila PA-C) Subjective Pt evaluation today including: conversation w/ patient, physical exam, chart review, lab review, review of studies, review of inpatient medication list Patient denies any shortness of breath at rest. Mild cough noted. Sometimes productive. Denies any fever or chills. Denies any nausea. Last BM reportedly yesterday. No abdominal pain. Denies any chest pain or pressure. No heart palpitations or dizziness. Additional Comments: 6 system review negative. Please see pertinent positives in the history of present illness section. (Ashley Aguila PA-C) Objective Vital Signs Date Time Temp Pulse Resp B/P Pulse Ox O2 Delivery O2 Flow Rate FiO2 06/20/16 11:39 66 20 97 Nasal Cannula 1.0 06/20/16 08:02 36.4 75 16 109/78 97 Nasal Cannula 1.0 06/20/16 08:00 97 Nasal Cannula 1.0 06/20/16 07:15 66 20 97 Nasal Cannula 1.0 06/20/16 02:17 2.0 06/20/16 00:24 36.6 78 16 113/52 94 1.0 06/20/16 00:00 98 Nasal Cannula 2.0 06/19/16 20:24 68 20 98 Nasal Cannula 2.0 06/19/16 16:15 Nasal Cannula 2.0 06/19/16 15:49 36.3 66 19 109/63 100 Nasal Cannula 2.0 06/19/16 15:40 63 20 96 Nasal Cannula 2.0 (Ashley Aguila PA-C) Physical Exam General Appearance: no apparent distress Eyes: EOMI ENT: + pertinent finding (oral mucosa fairly dry. No exudate noted on the tongue or palate.) Neck: no JVD Respiratory/Chest: + pertinent finding (mild diffuse wheeze bilaterally. No crackles. No rhonchi auscultated. No tachypnea.) Cardiovascular: regular rate, rhythm Abdomen: normal bowel sounds, non tender, soft Extremities: non-tender, no pedal edema Neurologic/Psychiatric: no motor/sensory deficits, oriented x 3, + pertinent finding (tremor noted in the upper extremities bilaterally.) Skin: warm/dry (Ashley Aguila PA-C) Laboratory Results 06/20/16 05:38 06/20/16 05:38 Test 06/20/16 05:38 06/20/16 11:33 Red Blood Count 3.73 M/uL (4.7-6.1) Mean Corpuscular Volume 82.3 fL (80-100) Mean Corpuscular Hemoglobin 26.3 pg (25-34) Mean Corpuscular Hemoglobin Concent 31.9 g/dl (32-36) RDW Standard Deviation 53.7 fL (36.4-46.3) RDW Coefficient of Variation 17.8 % (11.5-14.5) Mean Platelet Volume 9.6 fL (7.4-10.4) Est Creatinine Clear Calc Drug Dose 46.6 ml/min Estimated GFR () 44.2 Estimated GFR (Non- 38.1 Bedside Glucose 90 mg/dl (70-99) Last 24 Hours Test 06/19/16 16:39 06/19/16 20:32 06/19/16 20:56 06/19/16 21:19 Bedside Glucose 311 mg/dl 68 mg/dl 69 mg/dl 115 mg/dl Test 06/19/16 23:51 06/20/16 05:38 06/20/16 07:41 06/20/16 11:33 Bedside Glucose 91 mg/dl 90 mg/dl 90 mg/dl White Blood Count 20.23 K/uL Red Blood Count 3.73 M/uL Hemoglobin 9.8 g/dL Hematocrit 30.7 % Mean Corpuscular Volume 82.3 fL Mean Corpuscular Hemoglobin 26.3 pg Mean Corpuscular Hemoglobin Concent 31.9 g/dl RDW Standard Deviation 53.7 fL RDW Coefficient of Variation 17.8 % Platelet Count 187 K/uL Mean Platelet Volume 9.6 fL Creatinine 1.80 mg/dl Est Creatinine Clear Calc Drug Dose 46.6 ml/min Estimated GFR () 44.2 Estimated GFR (Non- 38.1 (Ashley Aguila PA-C) Assessment and Plan 65yo male with h/o COPD, ongoing tobacco dependence, CAD s/p CABG, HTN, and parkinson's disease with: 1. COPD with probable exacerbation - resolving. -Initially on IV steroids-->prednisone 40 mg daily. Continue at this dose -Continue nebs -Oxygen trial *coughing noted with drinking liquids ? aspiration-->swallow eval 2. acute/chronic diastolic CHF - IMPROVED. Echo from 12/2015 with preserved EF and grade [address] chest with pulmonary edema; no pneumonia, mass or ILD. D/C iv Lasix today Continue beta jair. 3. fatigue, anorexia, headache - sinus CT without sinusitis. ESR normal. Sent sputum cx to exclude infectious bronchitis. VBG without hypercarbia. U/a without suggestion of UTI. 4. CAD s/p CABG - continue aspirin, BB, statin. No ischemic symptoms. 5. tobacco dependence - nicoderm patch. Dance Instructor to quit. 6. parkinson's disease - continue sinemet - 2 tabs AM, 1 tab afternoon, 1 tab HS. PT, OT to maintain function. 7. HTN - continue home meds. Controlled. 8. h/o diet-controlled T2DM - uncontrolled Lantus 10 u added-->hypoglycemic overnight. D/C Lantus Continue ISS 9. LES - continue CPAP at HS. 10. leukocytosis - may be related to steroid use. Sed rate essentially normal. 11. prolonged QTc - K/Mag both normal. Repeat EKG QTc 515. NSR 12. DVT proph - lovenox 40mg daily. 13. FEN - AHA/T2DM diet 14. h/o a. fib - on amiodarone. In NSR. If patient's pulmonary symptoms fail to improve despite diuresis...could CT findings reflect fibrosis from amiodarone? Follow. 15. Acute renal failure-likely secondary to diuresis hold lasix. Will hold off on IVF BMP in AM Other notes/changes per Dr. Blanca (Ashley Aguila, PA-C) Attending Attestation: Pt seen/examined, chart reviewed, care plan d/w JOSUE Aguila. I agree w/ the sky components of her documentation. Pt states he continues with cough. I observed him drinking water with a straw and he immediately coughed after drinking. No other issues. VSS net neg 4 + liters since admission gen - nad neck - no JVD mouth - MM dry heart - RRR lungs - scant rales bases, otherwise CTA b/l abd - soft, NT ext - no edema Cr 1.8 A/P: 1. acute/chronic diastolic CHF - Cr has risen and thus he is likely prerenal. stop diuresis. repeat BMP in am. discontinue O2. 2. CKD stage 2 with mild acute kidney injury, latter 2nd to over-diuresis - stop lasix BMP am. 3. PD - sinemet TID 4. T2DM - labile, due to steroids. Adjust lantus/novolog. 5. COPD w/ exacerbation - resolved. wean prednisone. PT, OT progressing nicely Philly BLANCA MD (Shayne Blanca MD)
--- NOTE | 2016-06-20 14:29 | DIAGNOSTIC IMAGING REPORT ---
VIDEO SWALLOW STUDY CLINICAL HISTORY: Cough with drinking. COMPARISON STUDY: No priors. Fluoroscopy time: 2.4 minutes. FINDINGS: Fluoroscopic guidance was provided to the Department of Speech Pathology in performing a video swallow study. The patient consumed barium-impregnated cracker with paste, pudding, nectar thick liquids, and thin barium while the swallowing mechanism was observed in real-time. There was pharyngeal penetration without evidence of aspiration seen on the thin barium texture. No aspiration was seen on the pudding or nectar thick liquid textures. There is difficulty with mastication noted on the cracker with paste texture. Vallecular residuals were identified which were cleared with several swallows. No aspiration was seen. Midline sternotomy wires are noted. IMPRESSION: 1. No aspiration was identified during the examination. 2. There was pharyngeal penetration seen with thin barium. 3. See dedicated speech pathology report for detailed findings and recommendations. Dictated: 06/20/2016 2:11 PM Transcribed: 06/20/2016 2:29 PM [email or web address] Electronically signed by: Song Chambers M.D. 06/20/2016 2:36 PM Dictated Date/Time: 06/20/2016 2:11 PM
--- NOTE | 2016-06-20 16:21 | DIAGNOSTIC IMAGING REPORT ---
CHEST 2 VIEWS ROUTINE CLINICAL HISTORY: catering sous chef dyspnea COMPARISON STUDY: 06/17/2016 FINDINGS: Mild decrease in cardiac size. Moderate improvement in pulmonary vasculature. Diaphragms smooth. IMPRESSION: Improving congestive heart failure Electronically signed by: Boni Sutton M.D. 06/20/2016 4:20 PM Dictated Date/Time: 06/20/2016 4:19 PM
[2016-06-20] MEDS: CARBIDOPA/LEVODOPA 25/100MG TAB PO SCH (16:38)
[2016-06-20] MEDS ORDERED: INSULIN GLARGINE SOLOSTAR 100 UNITS/ML 3 ML PEN SC SCH (21:00)
[2016-06-20] MEDS: ENOXAPARIN 40 MG/0.4 ML SYR SQ SCH (21:57)
[2016-06-20] MEDS: METOPROLOL SUCC 25MG EXT REL TAB PO SCH (21:59)
[2016-06-20] MEDS: SIMVASTATIN 20 MG TAB PO SCH (21:59)
[2016-06-20] MEDS: TAMSULOSIN HCL 0.4 MG CAP PO SCH (22:00)
[2016-06-20] MEDS: CARBIDOPA/LEVODOPA 25-250 1 EA TAB PO SCH (22:00)
[2016-06-21] VITALS (8 sets, daily range): BP systolic 125–137; BP diastolic 65–67; PULSE 65–78; TEMP 36.4–36.5; O2SAT 95–98
[2016-06-21] MEDS: ALBUT/IPRATROP 3MG/0.5MG NEB 3 ML VIAL INH SCH ×4 (07:12→19:24)
[2016-06-21 08:01] LABS: BUN/CREATININE RATIO 23.3 (10-20); CALCIUM 8.1 mg/dl (8.5-10.1); CREATININE 1.5 mg/dl (0.60-1.40); POTASSIUM 3.9 mmol/L (3.5-5.1)
[2016-06-21] MEDS: TIOTROPIUM BROMIDE 5 PUFF/90 MCG INH INH SCH (08:17)
[2016-06-21] MEDS: AMLODIPINE BESYLATE 5 MG TAB PO SCH (08:19)
[2016-06-21] MEDS: LORATADINE 10 MG TAB PO SCH (08:19)
[2016-06-21] MEDS: NICOTINE 14 MG/24 HR TDSY TD SCH (08:19)
[2016-06-21] MEDS: PANTOprazole SOD 40 MG TAB PO SCH (08:20)
[2016-06-21] MEDS: DULOXETINE (CYMBALTA) 30 MG CAP PO SCH (08:20)
[2016-06-21] MEDS: AMIODARONE 200 MG TAB PO SCH (08:20)
[2016-06-21] MEDS: CARBIDOPA/LEVODOPA 25/100MG EXT REL TAB PO SCH (08:21)
[2016-06-21] MEDS: ASPIRIN 81 MG ECTAB PO SCH (08:21)
[2016-06-21] MEDS: DOCUSATE SODIUM 100 MG CAP PO SCH ×2 (08:21→21:22)
[2016-06-21] MEDS: CHOLECALCIFEROL 1000 INTER.UNIT TAB PO SCH (08:21)
[2016-06-21] MEDS: LUBIPROSTONE 8 MCG CAP PO SCH (08:22)
[2016-06-21] MEDS: GUAIFENESIN 600 MG TABCR PO SCH ×2 (08:23→21:23)
[2016-06-21] MEDS: POLYETHYLENE (MIRALAX) 17 GM PACK PO SCH ×2 (08:23→21:26)
[2016-06-21] MEDS: NYSTATIN POWDER 15GM BTL EXT SCH ×3 (08:24→21:23)
[2016-06-21] MEDS: FLUTICASONE/SALMETEROL 250/50 (ADVAIR) 14 PUFF/1 INHALER INH SCH ×2 (08:24→21:28)
[2016-06-21] MEDS: INSULIN ASPART 100 UNITS/ML 3 ML PEN SC SCH ×4 (08:29→21:00)
[2016-06-21] MEDS: ACETAMINOPHEN 325 MG TAB PO PRN (10:29)
[2016-06-21] MEDS ORDERED: FUROSEMIDE INJ 20 MG in SYRINGE 0 ML IV ONE (12:45)
[2016-06-21] MEDS ORDERED: POTASSIUM CHLORIDE 20 MEQ TABCR PO ONE (15:45)
[2016-06-21] MEDS: CARBIDOPA/LEVODOPA 25/100MG TAB PO SCH (17:55)
[2016-06-21] MEDS ORDERED: FUROSEMIDE INJ 20 MG in SYRINGE 0 ML IV SCH (19:00)
--- NOTE | 2016-06-21 19:36 | Progress Note ---
Subjective Date of Service: Jun 21, 2016. Subjective Pt evaluation today including: conversation w/ patient, physical exam, chart review, lab review, review of studies (cxr from 06/20) Pain: denies; no headache PO Intake: eating 100% of meals; asks for more food Voiding: luz catheter in place no issues overnight asks when he can go home still with cough but improved denies dyspnea o2 has been d/c Problem List Medical Problems: (1) Altered mental status Status: Acute (2) Altered mental status Status: Acute (3) COPD (chronic obstructive pulmonary disease) Status: Chronic (4) Cough Status: Acute (5) Generalized weakness Status: Acute (6) Intractable pain Status: Acute (7) Leukocytosis Status: Acute (8) Low back pain Status: Acute (9) Lumbar disc disease Status: Acute (10) New onset of congestive heart failure Status: Acute (11) New onset seizure Status: Acute (12) Parkinson's disease Status: Acute (13) Parkinson's disease (tremor, stiffness, slow motion, unstableposture) Status: Acute (14) Post op infection Status: Acute (15) Right hip pain Status: Acute (16) Sciatica Status: Acute (17) Sepsis Status: Acute (18) Shaking Status: Acute (19) Shortness of breath Status: Acute (20) Weakness Status: Acute Review of Systems Constitutional: No fever Respiratory: No dyspnea on exertion, No shortness of breath, No wheezing Cardiac: No chest pain, No orthopnea Abdomen: No pain Objective Vital Signs Date Time Temp Pulse Resp B/P Pulse Ox O2 Delivery O2 Flow Rate FiO2 06/21/16 19:24 78 20 98 Room Air 06/21/16 15:25 36.4 65 18 125/67 96 Room Air 06/21/16 15:22 66 20 97 Room Air 06/21/16 11:08 68 20 95 Room Air 06/21/16 08:00 96 Room Air 06/21/16 07:47 36.5 67 18 137/65 96 Room Air 06/21/16 07:12 71 20 96 BiPAP/CPAP 06/21/16 00:00 CPAP 06/20/16 23:47 75 96 21 06/20/16 23:29 37.0 74 20 117/49 95 Room Air 06/20/16 20:00 74 20 97 Room Air Physical Exam General Appearance: no apparent distress ENT: + pertinent finding (MM dry) Neck: no JVD Respiratory/Chest: no respiratory distress, no accessory muscle use, + rales ( scant bases; no wheezes) Cardiovascular: regular rate, rhythm, no gallop, no murmur Abdomen: normal bowel sounds, non tender, soft, no organomegaly Extremities: + pedal edema (<1+ b/l ) Neurologic/Psychiatric: alert Laboratory Results Last 24 Hours Test 06/20/16 20:18 06/21/16 07:07 06/21/16 07:44 06/21/16 11:34 Bedside Glucose 166 mg/dl 115 mg/dl 137 mg/dl Sodium Level 141 mmol/L Potassium Level 3.9 mmol/L Chloride Level 101 mmol/L Carbon Dioxide Level 32 mmol/L Anion Gap 8.0 mmol/L Blood Urea Nitrogen 35 mg/dl Creatinine 1.50 mg/dl Est Creatinine Clear Calc Drug Dose 56.0 ml/min Estimated GFR () 55.0 Estimated GFR (Non- 47.5 BUN/Creatinine Ratio 23.3 Random Glucose 105 mg/dl Calcium Level 8.1 mg/dl Test 06/21/16 16:27 Bedside Glucose 147 mg/dl Assessment and Plan 65yo male with: 1. acute/chronic diastolic CHF - markedly improved. NC o2 is off. Cr stable. Good diuresis with AM lasix. Will give 2nd dose of lasix this evening. BMP in am. Cont BB. 2. CKD stage 2 with mild acute kidney injury, latter 2nd to over-diuresis - resolved. BMP am. 3. PD - sinemet TID; at baseline. 4. T2DM - labile, due to steroids. Improved. Cont novolog. lantus has been d/c. 5. COPD w/ exacerbation - resolved. wean prednisone to 30mg in am. cont inhalers. 6. leukocytosis - 2nd to steroids; repeat CBC in am for stability. 7. DVT proph - lovenox. 8. BPH - flomax daily. progressing nicely d/c luz tomorrow hopefully home soon Continued [facility] stay due to: multiple IV medications needed Discharge planning: home
[2016-06-21] MEDS: SIMVASTATIN 20 MG TAB PO SCH (21:23)
[2016-06-21] MEDS: POTASSIUM CHLORIDE 20 MEQ TABCR PO SCH (21:24)
[2016-06-21] MEDS: TAMSULOSIN HCL 0.4 MG CAP PO SCH (21:25)
[2016-06-21] MEDS: ENOXAPARIN 40 MG/0.4 ML SYR SQ SCH (21:26)
[2016-06-21] MEDS: METOPROLOL SUCC 25MG EXT REL TAB PO SCH (21:26)
[2016-06-21] MEDS: CARBIDOPA/LEVODOPA 25-250 1 EA TAB PO SCH (21:33)
[2016-06-22] VITALS (10 sets, daily range): BP systolic 125–163; BP diastolic 57–64; PULSE 68–101; TEMP 36.5–36.6; O2SAT 93–99
[2016-06-22] MEDS: ALBUT/IPRATROP 3MG/0.5MG NEB 3 ML VIAL INH SCH ×4 (07:08→20:24)
[2016-06-22 07:15] LABS: HEMATOCRIT 32.2 % (42-52); MEAN CELL VOLUME 84.7 fL (80-100); MEAN CORPUSCULAR HEMOGLOBIN 26.8 pg (25-34); MEAN CORPUSCULAR HGB CONC 31.7 g/dl (32-36); MEAN PLATELET VOLUME 9.8 fL (7.4-10.4); PLATELET COUNT 175 K/uL (130-400); WHITE BLOOD COUNT 14.59 K/uL (4.8-10.8)
[2016-06-22 07:45] LABS: BUN/CREATININE RATIO 25.2 (10-20); CALCIUM 8.4 mg/dl (8.5-10.1); CREATININE 1.2 mg/dl (0.60-1.40); MAGNESIUM 2.4 mg/dl (1.8-2.4)
[2016-06-22] MEDS: LUBIPROSTONE 8 MCG CAP PO SCH (08:27)
[2016-06-22] MEDS: GUAIFENESIN 600 MG TABCR PO SCH ×2 (08:28→20:36)
[2016-06-22] MEDS: LORATADINE 10 MG TAB PO SCH (08:28)
[2016-06-22] MEDS: AMLODIPINE BESYLATE 5 MG TAB PO SCH (08:29)
[2016-06-22] MEDS: ASPIRIN 81 MG ECTAB PO SCH (08:29)
[2016-06-22] MEDS: AMIODARONE 200 MG TAB PO SCH (08:30)
[2016-06-22] MEDS: CARBIDOPA/LEVODOPA 25/100MG EXT REL TAB PO SCH (08:30)
[2016-06-22] MEDS: DULOXETINE (CYMBALTA) 30 MG CAP PO SCH (08:30)
[2016-06-22] MEDS: CHOLECALCIFEROL 1000 INTER.UNIT TAB PO SCH (08:31)
[2016-06-22] MEDS: POLYETHYLENE (MIRALAX) 17 GM PACK PO SCH ×2 (08:31→20:33)
[2016-06-22] MEDS: FLUTICASONE/SALMETEROL 250/50 (ADVAIR) 14 PUFF/1 INHALER INH SCH ×2 (08:32→20:33)
[2016-06-22] MEDS: TIOTROPIUM BROMIDE 5 PUFF/90 MCG INH INH SCH (08:32)
[2016-06-22] MEDS: NYSTATIN POWDER 15GM BTL EXT SCH ×3 (08:32→20:33)
[2016-06-22] MEDS: DOCUSATE SODIUM 100 MG CAP PO SCH ×2 (08:33→20:36)
[2016-06-22] MEDS: POTASSIUM CHLORIDE 20 MEQ TABCR PO SCH ×2 (08:33→20:36)
[2016-06-22] MEDS: PANTOprazole SOD 40 MG TAB PO SCH (08:34)
[2016-06-22] MEDS: NICOTINE 14 MG/24 HR TDSY TD SCH (08:36)
[2016-06-22] MEDS: INSULIN ASPART 100 UNITS/ML 3 ML PEN SC SCH ×4 (08:53→20:37)
[2016-06-22] MEDS: FUROSEMIDE INJ 20 MG in SYRINGE 0 ML IV SCH ×2 (11:22→16:39)
[2016-06-22] MEDS: CARBIDOPA/LEVODOPA 25/100MG TAB PO SCH (16:40)
--- NOTE | 2016-06-22 18:22 | Progress Note ---
Subjective Date of Service: Jun 22, 2016. Subjective Pt evaluation today including: conversation w/ patient, physical exam, chart review, lab review, review of inpatient medication list Pain: denies PO Intake: eating 100% of meals Voiding: luz catheter in place feels good asking to go home denies significant cough or dyspnea therapy notes from 06/20 indicate he walked 135 feet and o2 sats were 100% in room air eating well Problem List Medical Problems: (1) Altered mental status Status: Acute (2) Altered mental status Status: Acute (3) COPD (chronic obstructive pulmonary disease) Status: Chronic (4) Cough Status: Acute (5) Generalized weakness Status: Acute (6) Intractable pain Status: Acute (7) Leukocytosis Status: Acute (8) Low back pain Status: Acute (9) Lumbar disc disease Status: Acute (10) New onset of congestive heart failure Status: Acute (11) New onset seizure Status: Acute (12) Parkinson's disease Status: Acute (13) Parkinson's disease (tremor, stiffness, slow motion, unstableposture) Status: Acute (14) Post op infection Status: Acute (15) Right hip pain Status: Acute (16) Sciatica Status: Acute (17) Sepsis Status: Acute (18) Shaking Status: Acute (19) Shortness of breath Status: Acute (20) Weakness Status: Acute Review of Systems Respiratory: No sputum Cardiac: No chest pain, No orthopnea Abdomen: No pain Objective Vital Signs Date Time Temp Pulse Resp B/P Pulse Ox O2 Delivery O2 Flow Rate FiO2 06/22/16 16:00 Room Air 06/22/16 15:34 36.5 68 18 125/57 99 Room Air 06/22/16 14:45 68 20 99 Room Air 06/22/16 11:08 78 20 96 Room Air 06/22/16 08:04 36.5 81 18 163/64 94 Room Air 06/22/16 08:00 94 Room Air 06/22/16 07:09 81 20 97 Room Air 06/22/16 01:14 70 97 21 06/22/16 00:19 36.6 101 20 160/64 93 Room Air 06/22/16 00:00 Room Air 06/21/16 19:24 78 20 98 Room Air Physical Exam General Appearance: no apparent distress ENT: + pertinent finding (Mm dry) Neck: no JVD Respiratory/Chest: lungs clear, no respiratory distress, no accessory muscle use Cardiovascular: regular rate, rhythm, no gallop, no murmur Abdomen: normal bowel sounds, non tender, soft, no organomegaly Extremities: + pedal edema (<1+ b/l ) Neurologic/Psychiatric: alert, oriented x 3, + pertinent finding (resting tremors) Laboratory Results Last 24 Hours Test 06/21/16 20:21 06/22/16 07:05 06/22/16 07:46 06/22/16 11:52 Bedside Glucose 147 mg/dl 108 mg/dl 108 mg/dl White Blood Count 14.59 K/uL Red Blood Count 3.80 M/uL Hemoglobin 10.2 g/dL Hematocrit 32.2 % Mean Corpuscular Volume 84.7 fL Mean Corpuscular Hemoglobin 26.8 pg Mean Corpuscular Hemoglobin Concent 31.7 g/dl RDW Standard Deviation 56.0 fL RDW Coefficient of Variation 17.9 % Platelet Count 175 K/uL Mean Platelet Volume 9.8 fL Sodium Level 143 mmol/L Potassium Level 4.0 mmol/L Chloride Level 105 mmol/L Carbon Dioxide Level 28 mmol/L Anion Gap 10.0 mmol/L Blood Urea Nitrogen 30 mg/dl Creatinine 1.20 mg/dl Est Creatinine Clear Calc Drug Dose 70.4 ml/min Estimated GFR () 72.1 Estimated GFR (Non- 62.2 BUN/Creatinine Ratio 25.2 Random Glucose 107 mg/dl Calcium Level 8.4 mg/dl Magnesium Level 2.4 mg/dl Test 06/22/16 16:31 Bedside Glucose 261 mg/dl Assessment and Plan 65yo male with: 1. acute/chronic diastolic CHF - off O2, chest is clear today. I am unsure how accurate his intake has been as I think he is drinking more than what is documented. [id number] he has had brisk diuresis. Suspect we are approaching euvolemia. Repeat bmp/mag in am. Cont BB. 2. CKD stage 2 with mild acute kidney injury, latter 2nd to over-diuresis - resolved. BMP am. 3. PD - sinemet TID; at baseline. 4. T2DM - labile, due to steroids. Should improve with weaning of steroids. Cont novolog. 5. COPD w/ exacerbation - resolved. wean prednisone to 20mg in am. cont inhalers. 6. leukocytosis - 2nd to steroids; resolved. 7. DVT proph - lovenox. 8. BPH - flomax daily. progressing nicely hopefully home - perhaps on 06/23/16? therapy notes suggest he is ambulating well and can return home d/c luz today Continued [facility] stay due to: multiple IV medications needed Discharge planning: home
[2016-06-22] MEDS: METOPROLOL SUCC 25MG EXT REL TAB PO SCH (20:33)
[2016-06-22] MEDS: CARBIDOPA/LEVODOPA 25-250 1 EA TAB PO SCH (20:35)
[2016-06-22] MEDS: TAMSULOSIN HCL 0.4 MG CAP PO SCH (20:36)
[2016-06-22] MEDS: SIMVASTATIN 20 MG TAB PO SCH (20:37)
[2016-06-22] MEDS: ENOXAPARIN 40 MG/0.4 ML SYR SQ SCH (20:38)
[2016-06-23] VITALS (7 sets, daily range): BP systolic 132–135; BP diastolic 64–67; PULSE 60–73; TEMP 36.5–36.6; O2SAT 92–96
[2016-06-23] MEDS: ALBUT/IPRATROP 3MG/0.5MG NEB 3 ML VIAL INH SCH ×2 (07:07→11:23)
[2016-06-23 07:48] LABS: BUN/CREATININE RATIO 24.2 (10-20); CALCIUM 8.4 mg/dl (8.5-10.1); CREATININE 1.3 mg/dl (0.60-1.40); MAGNESIUM 2.3 mg/dl (1.8-2.4); POTASSIUM 3.9 mmol/L (3.5-5.1)
[2016-06-23] MEDS: INSULIN ASPART 100 UNITS/ML 3 ML PEN SC SCH ×2 (08:36→12:33)
[2016-06-23] MEDS ORDERED: MCRK20 PO ×2 (08:48)
[2016-06-23] MEDS ORDERED: FURO20TA PO ×4 (08:48→10:37)
[2016-06-23] MEDS ORDERED: PRD10 PO ×2 (08:48)
[2016-06-23] MEDS: FLUTICASONE/SALMETEROL 250/50 (ADVAIR) 14 PUFF/1 INHALER INH SCH (08:49)
[2016-06-23] MEDS: LUBIPROSTONE 8 MCG CAP PO SCH (08:52)
--- NOTE | 2016-06-23 08:53 | Discharge Instructions ---
Discharge Instructions Admission Reason for Admission: Acute On Chronic Diastolic Heart Failure Discharge Discharge Diagnosis / Problem: COPD exacerbation; acute on chronic diastolic HF Discharge Goals Goal(s): Decrease discomfort, Improve function, Learn about illness, Diagnostic testing, Therapeutic intervention, Prevent Disease Progression Activity Recommendations Activity Limitations: resume your previous activity . Instructions / Follow-Up Instructions / Follow-Up New/changed medications: 1. Lasix 40 mg by mouth daily--> begin on 06/24 2. Potassium chloride supplement 20 mEq by mouth daily--> begin taking on 06/24 3. Prednisone claritza- 20 mg (2 tablets) by mouth x2 days, then 10 mg (1 tablet) by mouth x3 days--> begin taking on 06/24 It is very important you use your CPAP nightly. [facility] has been contacted to come and check your machine to insure it is working properly. A lung nodule was seen on CT scan- it is important you follow-up with your PCP and have a repeat scan in 6-12 months. Continue all other regular home medications as prescribed to you Please follow-up with your PCP within 5-7 days Please follow-up/keep all of your subspecialty appointments Call your Primary Care doctor if any of the following symptoms or problems start or get worse: * Shortness of breath or difficulty breathing * Wake up at night short of breath * Chest pain * Cough * Swelling of your hands, feet, or legs * More fatigued or tired with your normal activity * Palpitations - sudden fast heart beats WEIGHT * Weigh yourself every morning after using the bathroom. * Use the same scale. * Wear the same amount of clothing. * Write your weight down on a chart. * Call your Primary Care doctor if you gain more than 2-3 pounds in 1-2 days. MEDICATIONS * Use this discharge instruction sheet for medication instructions. * Take your medications at the time your doctor ordered. * Do not skip a dose of your medicines. * If you miss a dose of medicine, take it as soon as possible, but DO NOT DOUBLE A DOSE. * Read your medicine information when you get home. * Know all of the side effects of your medicine. If in doubt, ask your pharmacist * Call your Primary Care doctor's office if you have any side effects. * Be sure all of your doctors know what medicine and herbs you take (including cold, flu, and herbal medicine). Take the following with you to your follow-up doctor appointments: * Weight Chart * Medication List * List of questions Do not drink excessive alcohol, beer or wine. Current Hospital Diet Patient's current hospital diet: AHA Diet (Heart Healthy), Diabetes Type 2 Diet Discharge Diet Recommended Diet: AHA Diet (Heart Healthy), Diabetes Type 2 Diet Procedures Procedures Performed: 1. CXR 2. Sinus CT 3. Chest CT 4. Video swallow study Pending Studies Studies pending at discharge: no Laboratory Results Last 24 Hours Test 06/22/16 11:52 06/22/16 16:31 06/22/16 20:35 06/23/16 06:53 Bedside Glucose 108 mg/dl 261 mg/dl 122 mg/dl Sodium Level 141 mmol/L Potassium Level 3.9 mmol/L Chloride Level 103 mmol/L Carbon Dioxide Level 30 mmol/L Anion Gap 8.0 mmol/L Blood Urea Nitrogen 31 mg/dl Creatinine 1.30 mg/dl Est Creatinine Clear Calc Drug Dose 65.5 ml/min Estimated GFR () 65.4 Estimated GFR (Non- 56.5 BUN/Creatinine Ratio 24.2 Random Glucose 97 mg/dl Calcium Level 8.4 mg/dl Magnesium Level 2.3 mg/dl Test 06/23/16 07:33 Bedside Glucose 117 mg/dl Medical Emergencies . Who to Call and When: Call 911 or go to the Emergency Room if: * If at any time you feel your situation is an emergency * You have tightness or pain in your chest that does not go away with rest or Nitroglycerin * You are very short of breath even with rest . Non-Emergent Contact Non-Emergency issues call your: Primary Care Provider Call Non-Emergent contact if: you have a fever, your pain is unusual for you, your pain is concerning you, you have any medication questions . . "Provider Documentation" section prepared by Leah Gonzalez. VTE Core Measure Inpt VTE Proph given/why not?: Enoxaparin (Lovenox)SQ
[2016-06-23] MEDS: LORATADINE 10 MG TAB PO SCH (08:55)
[2016-06-23] MEDS: DOCUSATE SODIUM 100 MG CAP PO SCH (08:56)
[2016-06-23] MEDS: AMIODARONE 200 MG TAB PO SCH (08:57)
[2016-06-23] MEDS: DULOXETINE (CYMBALTA) 30 MG CAP PO SCH (08:58)
[2016-06-23] MEDS: ASPIRIN 81 MG ECTAB PO SCH (08:59)
[2016-06-23] MEDS: NYSTATIN POWDER 15GM BTL EXT SCH ×2 (09:00→14:00)
[2016-06-23] MEDS: POTASSIUM CHLORIDE 20 MEQ TABCR PO SCH (09:01)
[2016-06-23] MEDS: POLYETHYLENE (MIRALAX) 17 GM PACK PO SCH (09:02)
[2016-06-23] MEDS: GUAIFENESIN 600 MG TABCR PO SCH (09:04)
[2016-06-23] MEDS: AMLODIPINE BESYLATE 5 MG TAB PO SCH (09:05)
[2016-06-23] MEDS: PANTOprazole SOD 40 MG TAB PO SCH (09:07)
--- NOTE | 2016-06-23 09:07 | Discharge Summary ---
Discharge Summary Date of Service Jun 23, 2016. Discharge Summary Admission Date: Jun 17, 2016 at 18:56 Discharge Date: Jun 23, 2016 Discharge Disposition: Home with services Principal Diagnosis: COPD exacerbation; acute on chronic diastolic HF Problems/Secondary Diagnoses: 1. COPD 2 Chronic diastolic CHF 4. CAD s/p CABG 5. h/o a. fib 6. Tobacco dependence 7. Parkinson's disease 8. HTN 9. T2DM 10. LES 11. BPH Immunizations: Have You Had Influenza Vaccine: Yes Influenza Vaccine Date: Mar 07, 2007 History of Tetanus Vaccine?: Yes Tetanus Immunization Date: Jul 19, 2010 History of Pneumococcal: Yes History of Hepatitis B Vaccine: No Procedures: CHEST ONE VIEW PORTABLE CLINICAL HISTORY: EVALUATE RESPIRATORY DISTRESS. DYSPNEA COMPARISON STUDY: No previous studies for comparison. FINDINGS: Moderate cardiomegaly. Prior median sternotomy. Pulmonary vasculature is moderately prominent. IMPRESSION: Developing congestive heart failure Electronically signed by: Boni Sutton M.D. 06/17/2016 2:25 PM Dictated Date/Time: 06/17/2016 2:23 PM The status of this report is Signed. Draft = Not yet reviewed or approved by Radiologist. Signed = Reviewed and approved by Radiologist. CT SCAN OF THE PARANASAL SINUSES CLINICAL HISTORY: Frontal sinus pain/pressure. COMPARISON STUDY: CT of the brain dated 03/30/2016. TECHNIQUE: High-resolution CT scan of the paranasal sinuses is performed. Images are reviewed in the axial, sagittal, and coronal planes. IV contrast was not administered for this examination. CT DOSE: 317.36 mGycm FINDINGS: Maxillary antra: Trace dependent mucosal thickening is seen on the right. Clear on the left. Anterior ethmoid sinuses: Clear. Posterior ethmoid sinuses: Clear. Sphenoid sinuses: Clear. Frontal sinuses: Trace mucosal thickening is seen bilaterally. Ostiomeatal complexes: Patent bilaterally. Frontoethmoidal and sphenoethmoidal recesses: Patent bilaterally. Carotid arteries: The carotid arteries are protuberant. There is a thin bony covering on the right. There may be uncovering on the left. A septal attachment is noted on the right. Ethmoid roofs: There is asymmetric elevation of the left ethmoid roof as compared to the right. Nasal turbinates: Normal in appearance. Nasal septum: There is leftward deviation of the bony nasal septum. Optic nerves: Covered. Orbits: The bony orbits are intact. Orbital contents are normal in appearance. Skeletal structures: The skeletal structures are osteopenic. The imaged calvarium is normal in appearance. Cervical spondylosis is partially imaged. Dentition: Numerous dental caries are identified. Mastoid air cells: There is opacification of the mastoid air cells. Fluid is also seen within the middle ear bilaterally. Debris is noted within the right external auditory canal. Brain parenchyma: Partially visualized brain parenchyma is within normal limits. There is atherosclerotic calcification of the cavernous carotid arteries. IMPRESSION: 1. No significant paranasal sinus disease. See above. 2. Large mastoid effusions with fluid noted in the middle ear bilaterally. 3. Numerous dental caries are identified. Follow-up with dentistry is recommended. Electronically signed by: Song Chambers M.D. 06/18/2016 2:37 PM Dictated Date/Time: 06/18/2016 2:33 PM The status of this report is Signed. Draft = Not yet reviewed or approved by Radiologist. Signed = Reviewed and approved by Radiologist. CHEST CT WITHOUT CONTRAST CT DOSE: 708.71 mGycm HISTORY: Dyspnea bibasilar rales TECHNIQUE: Multiaxial CT images of the chest were performed without contrast. COMPARISON: 10/30/2014 FINDINGS: Moderate abscess chronic change thoracic aorta. Prior median sternotomy. Calcification the coronary arterial vasculature. Mild pulmonary vascular congestion. Trace pleural fluid both lung bases. Gallstone is identified within the gallbladder lumen. Nodular density left adrenal is unchanged. Mild hyperplasia of the left adrenal is also similar IMPRESSION: 1. Pulmonary vascular congestion. 2. Mild stable cardiomegaly. 3. Trace pleural fluid both lung bases. 4. 6 mm low suspicion nodule versus round atelectasis left posterior gastric angle. 5. Stable hyperplastic change left adrenal Please refer to below summary of Fleischner criteria recommendations for follow-up of incidental CT nodules ([place], Guidelines for management of small pulmonary nodules detected on CT scans: A statement from the Fleischner Society, Radiology 237: [phone].) Low Risk Patient: Minimal or no smoking or other known risk factors for malignancy <=4 mm: No follow-up needed. >4-6 mm: Initial follow-up CT at 12 months; if unchanged, no further follow-up. >6-8 mm: Initial follow-up CT at 6-12 months then at 18-24 months if no change. >8 mm: Follow-up CT at \\R\\3, 9, 24 months, or PET and/or biopsy. High Risk Patient: History of smoking or other known risk factors <=4 mm: Follow-up at 12 months; if unchanged, no further follow-up. >4-6 mm: Initial follow-up CT at 6-12 months then at 18-24 months if no change. >6-8 mm: Initial follow-up CT at 3-6 months then at 9-12 and 24 months if no change. >8 mm: Same as low risk patient. Note: Nodule size measured as average of length and width. Ground glass or partly solid nodules may require longer follow-up to exclude indolent adenocarcinoma. Electronically signed by: Boni Sutton M.D. 06/18/2016 2:48 PM Dictated Date/Time: 06/18/2016 2:43 PM The status of this report is Signed. Draft = Not yet reviewed or approved by Radiologist. Signed = Reviewed and approved by Radiologist. VIDEO SWALLOW STUDY CLINICAL HISTORY: Cough with drinking. COMPARISON STUDY: No priors. Fluoroscopy time: 2.4 minutes. FINDINGS: Fluoroscopic guidance was provided to the Department of Speech Pathology in performing a video swallow study. The patient consumed barium-impregnated cracker with paste, pudding, nectar thick liquids, and thin barium while the swallowing mechanism was observed in real-time. There was pharyngeal penetration without evidence of aspiration seen on the thin barium texture. No aspiration was seen on the pudding or nectar thick liquid textures. There is difficulty with mastication noted on the cracker with paste texture. Vallecular residuals were identified which were cleared with several swallows. No aspiration was seen. Midline sternotomy wires are noted. IMPRESSION: 1. No aspiration was identified during the examination. 2. There was pharyngeal penetration seen with thin barium. 3. See dedicated speech pathology report for detailed findings and recommendations. Dictated: 06/20/2016 2:11 PM Transcribed: 06/20/2016 2:29 PM [email or web address] Electronically signed by: Song Chambers M.D. 06/20/2016 2:36 PM Dictated Date/Time: 06/20/2016 2:11 PM The status of this report is Signed. Draft = Not yet reviewed or approved by Radiologist. Signed = Reviewed and approved by Radiologist. CHEST 2 VIEWS ROUTINE CLINICAL HISTORY: senior web designer dyspnea COMPARISON STUDY: 06/17/2016 FINDINGS: Mild decrease in cardiac size. Moderate improvement in pulmonary vasculature. Diaphragms smooth. IMPRESSION: Improving congestive heart failure Electronically signed by: Boni Sutton M.D. 06/20/2016 4:20 PM Dictated Date/Time: 06/20/2016 4:19 PM The status of this report is Signed. Draft = Not yet reviewed or approved by Radiologist. Signed = Reviewed and approved by Radiologist. Consultations: None Medication Reconciliation New Medications: Furosemide (Lasix) 20 Mg Tab 1 TAB PO DAILY for 30 Days, #30 TAB 5 Refills Potassium Chloride (Klor-Con M20) 20 Meq Tabcr 20 MEQ PO DAILY for 30 Days, #30 TABS Prednisone (Prednisone) 10 Mg Tab 20 MG PO DAILY for 5 Days, #7 TAB 20 mg by mouth x2 days, then 10 mg by mouth x3 days Continued Medications: Acetaminophen (Tylenol) 325 Mg Tab 650 MG PO Q6 PRN for Mild Pain DO NOT EXCEED 3GM/24HRS PAIN RATE FROM 0-3 ON 0-10 SCALE Acetaminophen (Tylenol) 325 Mg Tab 650 MG PO Q6 PRN for TEMP > 101 DO NOT EXCEED 3GM/24HRS Albuterol (Proventil Hfa) Aers 2 PUFFS INH QID Amiodarone HCl (Amiodarone HCl) 200 Mg Tab 200 MG PO DAILY Amlodipine (Norvasc) 10 Mg Tab 10 MG PO DAILY, TAB Aspirin (Aspirin Ec) 81 Mg Tab 81 MG PO DAILY Carbidopa/Levodopa (Sinemet Cr 25MG/100MG) Tabcr 2 TAB PO QAM, TAB Carbidopa/Levodopa (Sinemet 25MG/250MG) Tab 1 TAB PO PM, TAB Carbidopa/Levodopa (Sinemet 25MG/100MG) Tab 1 TAB PO qafternoon, #30 TAB 1 Refill Cholecalciferol (Vitamin D) 1,000 Inter.unit Tab 4000 INTER.UNIT PO DAILY, TAB Desloratadine (Clarinex) 5 Mg Tab 5 MG PO DAILY, TAB Docusate Sodium (Colace) 100 Mg Cap 100 MG PO BID Duloxetine HCl (Cymbalta) 30 Mg Cap 30 MG PO DAILY for 30 Days, #30 CAP 2 Refills Fluticasone Prop/Salmeterol (Advair Diskus 250-50 Mcg/Dose) 14 Puff/1 Inhaler Aerp 1 PUFF INH Q12 Hydralazine Hcl (Apresoline) 100 Mg Tab 1 TAB PO TID for 30 Days, #90 TAB 5 Refills Lubiprostone (Amitiza) 8 Mcg Cap 8 MCG PO DAILY, CAP Metoprolol Succ (Toprol Xl) (Toprol-Xl) 50 Mg Tabcr 75 MG PO HS Polyethylene Glycol 3350 (Miralax) 1 Pow Pow 17 GM PO BID can take up to twice daily Simvastatin (Zocor) 20 Mg Tab 20 MG PO QPM, TAB Tamsulosin HCl (Tamsulosin HCl) 0.4 Mg Cap 0.4 MG PO HS Tiotropium [place] (Spiriva Handihaler) 5 Puff/90 Mcg Aerp 1 PUFF INH QAM for 30 Days Discontinued Medications: Doxycycline Monohydrate (Monodox) 100 Mg Cap 100 MG PO BID, CAP Referrals At Discharge Follow up Referrals: Family Practice Referral - Within 1 Week with Adonay Art M.D. Discharge Exam Review of Systems: Constitutional: No chills, No fatigue, No fever, No sweats, No weakness Respiratory: + cough, No hemoptysis, No shortness of breath, No sputum, No wheezing Cardiovascular: No chest pain, No edema, No palpitations Abdomen: No constipation, No diarrhea, No nausea, No pain, No vomiting Musculoskeletal: No calf pain, No joint pain, No muscle pain, No swelling Genitourinary - Male: No dysuria, No hematuria Neurologic: No numbness/tingling, No weakness Psychiatric: No anxiety, No depression symptoms Hematologic / Lymphatic: No abnormal bleeding/bruising Integumentary: No itch, No new/changing skin lesions, No rash Physical Exam: General Appearance: no apparent distress Eyes: normal inspection, PERRL ENT: hearing grossly normal Neck: supple Respiratory/Chest: lungs clear, no respiratory distress, no accessory muscle use Cardiovascular: regular rate, rhythm, normal peripheral pulses Abdomen / GI: normal bowel sounds, non tender, soft Extremities: no calf tenderness, no pedal edema, + swelling (trace edema of bilateral lower extremities ) Neurologic/Psychiatric: alert, normal mood/affect, oriented x 3, + pertinent finding (resting tremor ) Skin: normal color, warm/dry, no rash Hospital Course Admission HPI: 65yo male with history of COPD who presents with ongoing respiratory symptoms starting in April. He has had at least 3 rounds of antibiotics (amoxicillin, doxycycline, and then doxycycline again) along with 2 rounds of prednisone taper. He finished his most recent round of prednisone/ doxycycline today. Despite these medications he has continued to do poorly. No fever but "felt warm" about 2 days ago. Some chills. Appetite has been poor since Thursday of last weekend. Had LE edema last week but none today. His weight at baseline is about 200 pounds; in the office recently it had climbed to as high as 220 pounds. He has had dyspnea at rest and with activity, cough, and significant fatigue. Some PND. Uses CPAP at HS but not oxygen. Has neb machine at home but has been out of the ampules. COPD with probable exacerbation - resolving: - Initially on IV steroids--> Prednisone claritza - Continue neb Acute/chronic diastolic CHF - IMPROVED: - Echo from 12/2015 with preserved EF and grade 1 diastolic CHF - CT chest with pulmonary edema; no pneumonia, mass or ILD - Treated with IV Lasix 20 mg BID--> monitored I&Os and daily weights - Continue beta jair Acute renal failure, likely secondary to diuresis- resolved: - Follow BMP Fatigue, anorexia, headache - sinus CT without sinusitis. ESR normal. Sent sputum cx to exclude infectious bronchitis. - VBG without hypercarbia. U/a without suggestion of UTI. CAD s/p CABG - continue aspirin, BB, statin. No ischemic symptoms. h/o a. fib - on amiodarone. In NSR. - If patient's pulmonary symptoms fail to improve despite diuresis...could CT findings reflect fibrosis from amiodarone? Prolonged QTc - K/Mag both normal. Repeat EKG QTc 515. NSR Tobacco dependence - NicoDerm patch. Piper Installer to quit. Parkinson's disease - continue Sinemet - 2 tabs AM, 1 tab afternoon, 1 tab HS. PT, OT to maintain function. HTN - continue home meds. Controlled. T2DM - labile, due to steroids. Should improve with weaning of steroids. Cont NovoLog. LES - continue CPAP at HS. CPAP not working right--> [facility] contacted by case management to follow-up BPH: Continue Flomax Leukocytosis, likely secondary to steroids- resolved 6 mm low suspicion nodule versus round atelectasis left posterior gastric angle - recommended 6-12 month follow-up DVT prophylaxis - Lovenox 40mg daily Code Status: LEVEL I, FULL Dispo: Discharge to home . Total Time Spent: Greater than 30 minutes This includes examination of the patient, discharge planning, medication reconciliation, and communication with other providers. Discharge Instructions Please refer to the electronic Patient Visit Report (Discharge Instructions) for additional information. Follow-Up Please follow-up with your PCP within 5-7 days Please follow-up/keep all of your subspecialty appointments Additional Copies To Adonay Art M.D.
[2016-06-23] MEDS: CARBIDOPA/LEVODOPA 25/100MG EXT REL TAB PO SCH (09:08)
[2016-06-23] MEDS: CHOLECALCIFEROL 1000 INTER.UNIT TAB PO SCH (09:09)
[2016-06-23] MEDS: NICOTINE 14 MG/24 HR TDSY TD SCH (09:12)
[2016-06-23] MEDS: TIOTROPIUM BROMIDE 5 PUFF/90 MCG INH INH SCH (10:28)
[2016-07-19] MEDS ORDERED: ATRINS INH ×2 (09:03)
[2016-07-19] MEDS ORDERED: LVQ500 PO (09:03)
[2016-07-19] MEDS ORDERED: XPNINS1255 INH ×2 (09:03)
[2016-07-19] MEDS ORDERED: PRED20TA PO (09:03)
[2016-08-04] MEDS ORDERED: FURO-85 PO (13:07)
[2016-08-04] MEDS ORDERED: PRED20TA PO (13:09)
[2016-08-04] MEDS ORDERED: METO-217 PO (13:17)
[2016-10-29] MEDS ORDERED: FURO40TA3 PO (12:49)
[2016-11-07] MEDS ORDERED: FURO-85 PO (13:09)
[2017-01-07] MEDS ORDERED: SIMV20TA2 PO ×2 (06:30)
[2017-01-07] MEDS ORDERED: METO50TA7 PO ×2 (06:43)
[2017-01-07] MEDS ORDERED: DOCU-94 PO (12:41)
[2017-01-07] MEDS ORDERED: PSEU60TA80 PO (12:53)
[2017-01-07] MEDS ORDERED: MULT-506 PO (12:55)
[2017-01-07] MEDS ORDERED: PANT1TAB48 PO (12:55)
[2017-01-07] MEDS ORDERED: FRS/40 PO (13:09)
[2017-01-07] MEDS ORDERED: CARB50TA3 PO (13:14)
[2017-01-07] MEDS ORDERED: HYDR100T12 PO ×2 (15:21)
[2017-01-07] MEDS ORDERED: ASPI81TA28 PO ×2 (16:17)
[2017-01-07] MEDS ORDERED: CHOL2000 PO (16:33)
[2017-01-07] MEDS ORDERED: ADVIN25050 INH ×2 (19:59)
[2017-01-07] MEDS ORDERED: CRD200 PO ×2 (21:27)
[2017-01-07] MEDS ORDERED: FLM4 PO ×2 (21:40)
[2017-01-07] MEDS ORDERED: AMLO-114 PO ×2 (23:37)
[2017-01-07] MEDS ORDERED: CYM/30 PO ×2 (23:39)
[2017-01-07] MEDS ORDERED: LUBI8CAP4 PO ×2 (23:41)
== END 2016-06-23 14:36 | disposition home health service (06) | DRG 291 ==
LOC: ENRESERVTM → ENRESERVDT → EDBD 12:16 → C.EDC 12:18 → C.MS2W 18:56
PROVIDERS: ADMIT Internal Medicine; ATTEND Internal Medicine
DX: I13.0 Hypertensive heart and chronic kidney disease with heart failure and stage 1 through stage 4 chronic kidney disease, or unspecified chronic kidney disease (principal); I50.33 Acute on chronic diastolic (congestive) heart failure; J44.1 Chronic obstructive pulmonary disease with (acute) exacerbation; N17.9 Acute kidney failure, unspecified; J98.11 Atelectasis; J44.0 Chronic obstructive pulmonary disease with (acute) lower respiratory infection; N18.2 Chronic kidney disease, stage 2 (mild); E11.65 Type 2 diabetes mellitus with hyperglycemia; G20 Parkinson's disease; F17.200 Nicotine dependence, unspecified, uncomplicated; I48.0 Paroxysmal atrial fibrillation; J30.9 Allergic rhinitis, unspecified; E11.22 Type 2 diabetes mellitus with diabetic chronic kidney disease; E78.5 Hyperlipidemia, unspecified; I25.10 Atherosclerotic heart disease of native coronary artery without angina pectoris; J84.10 Pulmonary fibrosis, unspecified; R91.8 Other nonspecific abnormal finding of lung field; J40 Bronchitis, not specified as acute or chronic; G47.33 Obstructive sleep apnea (adult) (pediatric); N40.0 Benign prostatic hyperplasia without lower urinary tract symptoms; Z79.82 Long term (current) use of aspirin; Z95.1 Presence of aortocoronary bypass graft; Z79.51 Long term (current) use of inhaled steroids; Z79.899 Other long term (current) drug therapy

== ENCOUNTER → 2016-07-04 | Outpatient (CLI) | payer OTHER ==
[~2016-07-04] MED LIST changes: +ADVIN25050 INH; +AMLO-114 PO; +ASPI81TA28 PO; +ATRINS INH; +CARB25TA12 PO; +CARB25TA14 PO; +CARB25TA16 PO; +CARB50TA3 PO; +CHOL2000 PO; +CLR/5 PO; +CRD200 PO; +CYM/30 PO; +FLM4 PO; +FRS/40 PO; +FURO-85 PO; +FURO20TA PO; +FURO40TA3 PO; +HYDR100T12 PO; +LEVA1.255 PO; -LSN20 PO; +LUBI8CAP4 PO; +LVQ500 PO; +MCRK20 PO; +METH4PAK PO; +METO-217 PO; +METO50TA7 PO; +MULT-506 PO; +NRN100 PO; +PANT1TAB48 PO; +PANT20TA PO; +POTA20TA13 PO; +PRD10 PO; +PRED20TA PO; +PSEU60TA80 PO; +SIMV20TA2 PO; +SPRIN/30 PO; +VNTHFA/IN INH; +XPNINS125 PO; +XPNINS1255 INH
[2016-07-04 16:57] LABS: BLOOD UREA NITROGEN 13 mg/dl (7-18); CALCIUM 8.6 mg/dl (8.5-10.1); CARBON DIOXIDE 31 mmol/L (21-32); CHLORIDE 102 mmol/L (98-107); GLUCOSE 93 mg/dl (70-99); POTASSIUM 3.8 mmol/L (3.5-5.1); SODIUM 142 mmol/L (136-145)
== END | disposition home or self-care (01) ==
LOC: C.LABBFT 17:24
PROVIDERS: ATTEND Internal Medicine
DX: L85.3 Xerosis cutis (principal)

== ENCOUNTER 2016-07-13 15:58 | Inpatient (IN) | payer OTHER ==
[~2016-07-13] VITALS: Ht 177.8 cm; Wt 96.5 kg
[~2016-07-13 15:58] MED LIST changes: -ADVIN25050 INH; -AMLO-114 PO; -ASPI81TA28 PO; -ATRINS INH; -CARB50TA3 PO; -CHOL2000 PO; -CRD200 PO; -CYM/30 PO; -FLM4 PO; -FRS/40 PO; -FURO-85 PO; -FURO40TA3 PO; -HYDR100T12 PO; -LEVA1.255 PO; -LUBI8CAP4 PO; -LVQ500 PO; -METH4PAK PO; -METO-217 PO; -METO50TA7 PO; -MULT-506 PO; -NRN100 PO; -PANT1TAB48 PO; -PANT20TA PO; -POTA20TA13 PO; -PRED20TA PO; -PSEU60TA80 PO; -SIMV20TA2 PO; -SPRIN/30 PO; -VNTHFA/IN INH; -XPNINS125 PO; -XPNINS1255 INH
[2016-07-13] MEDS ORDERED: ALBUT/IPRATROP 3MG/0.5MG NEB 3 ML VIAL INH STA (16:25)
[2016-07-13] MEDS ORDERED: VNTHFA/IN INH (16:33)
--- NOTE | 2016-07-13 16:49 | EMERGENCY ROOM VISIT NOTE ---
History Report prepared by Sherrie: Twila Scott Under the Supervision of: Dr. Adriana Rodriguez M.D. First contact with patient: 16:17 Chief Complaint: RESPIRATORY PROBLEMS Stated Complaint: BREATHING IS BAD-PHYSICIAN REFERRED History of Present Illness The patient is a 65 year old male who presents to the Emergency Room with complaints of worsening respiratory problems that started last night. Per the patient's , the home health nurse evaluated the patient today and she called the patient's PCP who recommended that he come into the ED to get evaluated. The patient states that "he feels like he has to cough something up but he can't." He is also experiencing shortness of breath but denies chest pain. He states that he was diagnosed with congestive heart failure about 2.5 weeks ago and that his current symptoms feel similar to that. The patient was started on Lasix when he was in the hospital, but his states that his weight has been increasing over the past few days. The patient is on a baby aspirin daily but denies any other blood thinners. The patient's adds that he had a CABG in 2000, but has never been diagnosed with congestive heart failure otherwise. Source of History: patient, spouse/significant other () Onset: last night Position: chest Quality: other (respiratory problems) Timing: worsening Associated Symptoms: + SOB, No chest pain Note: weight gain Review of Systems See HPI for pertinent positives & negatives. A total of 10 systems reviewed and were otherwise negative. Past Medical & Surgical Medical Problems: (1) Abscess in epidural space of lumbar spine (2) Acute on chronic diastolic (congestive) heart failure (3) Back pain (4) Bronchitis (5) Bulging disc (6) Chest wall pain (7) COPD (chronic obstructive pulmonary disease) (8) COPD exacerbation (9) Fall (10) Hallucinations (11) Heart disease (12) Hyperlipidemia (13) Hypertension (14) Hypoxia (15) inability to ambulate (16) Lumbar stenosis with neurogenic claudication (17) Parkinson disease (18) Parkinsons disease (19) Pneumonia involving right lung (20) Radicular pain of right lower extremity (21) Seizure-like activity (22) Shoulder pain Surgical Problems: (1) History of appendectomy (2) S/P CABG x 2 Family History FH: heart disease Hypertension Social History Smoking Status: Current Some Day Smoker Alcohol Use: none Drug Use: none Marital Status: Housing Status: assisted living Occupation Status: disabled Current/Historical Medications Scheduled Albuterol Hfa (Ventolin Hfa), 2 PUFFS INH QID Amiodarone HCl (Amiodarone HCl), 200 MG PO DAILY Amlodipine (Norvasc), 10 MG PO DAILY Aspirin (Aspirin Ec), 81 MG PO DAILY Carbidopa/Levodopa (Sinemet Cr 25MG/100MG), 2 TAB PO QAM Carbidopa/Levodopa (Sinemet 25MG/250MG), 1 TAB PO PM Carbidopa/Levodopa (Sinemet 25MG/100MG), 1 TAB PO qafternoon Cholecalciferol (Vitamin D3), 1 CAP PO DAILY Desloratadine (Clarinex), 5 MG PO DAILY Docusate Sodium (Colace), 100 MG PO BID Duloxetine HCl (Cymbalta), 30 MG PO DAILY Fluticasone Prop/Salmeterol (Advair Diskus 250-50 Mcg/Dose), 1 PUFF INH Q12 Furosemide (Lasix), 2 TAB PO DAILY Hydralazine Hcl (Apresoline), 1 TAB PO TID Lubiprostone (Amitiza), 8 MCG PO DAILY Metoprolol Succ (Toprol Xl) (Toprol-Xl), 75 MG PO HS Polyethylene Glycol 3350 (Miralax), 17 GM PO BID Potassium Chloride (Klor-Con M20), 20 MEQ PO DAILY Simvastatin (Zocor), 20 MG PO QPM Tamsulosin HCl (Tamsulosin HCl), 0.4 MG PO HS Tiotropium [place] (Spiriva Handihaler), 1 PUFF INH QAM Scheduled PRN Acetaminophen (Tylenol), 650 MG PO Q6 PRN for Mild Pain Acetaminophen (Tylenol), 650 MG PO Q6 PRN for TEMP > 101 Allergies Coded Allergies: BEE STING (Verified Allergy, Severe, ANAPHYLAXIS, 06/17/16) Benztropine (Verified Adverse Reaction, Intermediate, hallucinations/ mental confusion, 06/17/16) Eletriptan (Verified Adverse Reaction, Intermediate, CONFUSION, 06/17/16) Ropinirole (Verified Adverse Reaction, Unknown, unknown, 06/17/16) Physical Exam Vital Signs Date Time Temp Pulse Resp B/P Pulse Ox O2 Delivery O2 Flow Rate FiO2 07/13/16 21:38 79 20 135/101 95 Room Air 07/13/16 20:58 78 20 140/79 96 Room Air 07/13/16 20:51 73 07/13/16 19:48 79 20 161/77 97 Room Air 07/13/16 18:30 156/81 07/13/16 18:28 105 21 156/85 92 07/13/16 18:23 83 25 91 07/13/16 18:18 81 21 99 07/13/16 18:13 83 23 97 07/13/16 18:08 84 27 96 07/13/16 18:03 81 22 94 07/13/16 17:58 81 22 97 07/13/16 17:53 80 16 97 07/13/16 17:48 77 21 97 07/13/16 17:43 79 20 97 07/13/16 17:38 80 156/72 96 07/13/16 17:33 82 22 96 07/13/16 17:30 156/72 07/13/16 17:28 76 20 98 07/13/16 17:18 86 25 95 07/13/16 17:13 85 23 94 07/13/16 17:08 77 20 100 07/13/16 17:03 77 16 100 07/13/16 16:58 79 17 98 07/13/16 16:53 77 24 89 07/13/16 16:48 117 22 86 07/13/16 16:46 78 07/13/16 16:43 76 18 07/13/16 16:35 91 Room Air 07/13/16 16:19 137/53 07/13/16 16:05 36.9 64 18 131/64 98 Room Air Physical Exam Vital signs reviewed. General: Chronically ill-appearing older male with a significant baseline tremor , in no significant distress. HEENT: No scleral icterus, PERRLA, neck supple. Atraumatic. Cardiovascular: Regular rate with occasional ectopy, no extra sounds. Pulmonary: Coarse breath sounds bilaterally with gross sounding sputum in the throat, normal work of breathing. Abdomen: Soft, obese, nontender, nondistended, positive bowel sounds. Musculoskeletal: Atraumatic, no peripheral edema. Neurologic: Patient awake alert and oriented x 3, tremors to BUE as above. Skin: Warm, dry, no rash Medical Decision & Procedures ER Provider Diagnostic Interpretation: X-ray results as stated below per interpretation by me and the radiologist: CHEST ONE VIEW PORTABLE IMPRESSION: 1. Mild right lower lung opacity which could reflect atelectasis or consolidation. 2. Pulmonary vascular congestion. Electronically signed by: Gerald Emerson M.D. 07/13/2016 5:00 PM Dictated Date/Time: 07/13/2016 4:58 PM Laboratory Results 07/13/16 16:43 Red Blood Count 4.01, Mean Corpuscular Volume 87.5, Mean Corpuscular Hemoglobin 27.7, Mean Corpuscular Hemoglobin Concent 31.6, Mean Platelet Volume 9.0 07/13/16 16:43 Test 07/13/16 16:43 07/13/16 16:49 White Blood Count 13.99 K/uL (4.8-10.8) Red Blood Count 4.01 M/uL (4.7-6.1) Hemoglobin 11.1 g/dL (14.0-18.0) Hematocrit 35.1 % (42-52) Mean Corpuscular Volume 87.5 fL (80-100) Mean Corpuscular Hemoglobin 27.7 pg (25-34) Mean Corpuscular Hemoglobin Concent 31.6 g/dl (32-36) Platelet Count 269 K/uL (130-400) Mean Platelet Volume 9.0 fL (7.4-10.4) RDW Standard Deviation 60.7 fL (36.4-46.3) RDW Coefficient of Variation 18.9 % (11.5-14.5) Neutrophils % (Manual) 73.9 % Lymphocytes % (Manual) 13.0 % Monocytes % (Manual) 10.4 % Eosinophils % (Manual) 0.9 % Basophils % (Manual) 0.9 % (0-2) Metamyelocytes % 0.9 % Neutrophils # (Manual) 10.34 K/uL (1.4-6.5) Total Absolute Neutrophils 10.34 K/uL (1.4-6.5) Lymphocytes # (Manual) 1.82 K/uL (1.2-3.4) Total Absolute Lymphocytes 1.82 K/uL (1.2-3.4) Monocytes # (Manual) 1.45 K/uL (0.11-0.59) Eosinophils # (Manual) 0.13 K/uL (0-0.5) Basophils # (Manual) 0.13 K/uL (0-0.2) Metamyelocytes # 0.13 K/uL (0-0) Dohle Bodies 1+ Prothrombin Time 10.7 SECONDS (9.0-12.0) Prothromb Time International Ratio 1.0 (0.9-1.1) Activated Partial Thromboplast Time 25.9 SECONDS (21.0-31.0) Partial Thromboplastin Ratio 1.0 Anion Gap 8.0 mmol/L (3-11) Est Creatinine Clear Calc Drug Dose 60.5 ml/min Estimated GFR () 59.8 Estimated GFR (Non- 51.6 BUN/Creatinine Ratio 11.7 (10-20) Calcium Level 8.7 mg/dl (8.5-10.1) Magnesium Level 2.4 mg/dl (1.8-2.4) Total Bilirubin 0.3 mg/dl (0.2-1) Direct Bilirubin < 0.1 mg/dl (0-0.2) Aspartate Amino Transf (AST/SGOT) 7 U/L (15-37) Alanine Aminotransferase (ALT/SGPT) 11 U/L (12-78) Alkaline Phosphatase 106 U/L (45-117) Total Creatine Kinase 30 U/L (39-308) Creatine Kinase MB 1.3 ng/ml (0.5-3.6) Creatine Kinase MB Ratio 4.3 (0-3.0) Total Protein 7.9 gm/dl (6.4-8.2) Albumin 3.0 gm/dl (3.4-5.0) Bedside Troponin I 0.000 ng/ml (0-0.045) JJ-Ufy-B-Type Natriuretic Peptide 1030 pg/ml (0-900) Laboratory results per my review. Medications Administered Medications (Trade) Dose Ordered Sig/Igor Route Start Time Stop Time Status Last Admin Dose Admin Albuterol/ Ipratropium (Duoneb) 3 ml NOW STAT INH 07/13/16 16:25 07/13/16 16:28 DC 07/13/16 17:00 3 ML Furosemide (Lasix Inj) 40 mg NOW STAT IV 07/13/16 19:41 07/13/16 19:43 DC 07/13/16 21:01 40 MG Levofloxacin (Levaquin / D5W) 750 mg NOW STAT IV 07/13/16 19:41 07/13/16 19:43 DC 07/13/16 21:02 750 MG ECG Indication: SOB/dyspnea Rate (beats per minute): 77 Rhythm: sinus rhythm Findings: PVC (frequent), other (poor quality baseline for interpretation, prolonged QTc at 536 ms, previous inferior infarct) ED Course 1622: Past medical records reviewed. The patient was evaluated in room B2. A complete history and physical examination was performed. 1624: Ordered DuoNeb 3 ml INH 1931: Upon reevaluation, the patient is resting comfortably. I discussed laboratory and radiographic results with the patient and his . They verbalized agreement of the treatment plan. The patient will be evaluated for further management and care. 1938: I reviewed the patient's case [facility] She will evaluate the patient for further management. 1940: Ordered Levofloxacin 750 mg IV, Lasix Inj 40 mg IV Medical Decision Differentials include infections, reactive airway disease, pneumonia, pneumothorax, COPD, CHF, cardiac ischemia, pulmonary embolism, musculoskeletal, gastrointestinal, as well as others were entertained. This patient was evaluated and appeared to be in no distress. IV access was obtained and laboratory work was drawn. Supplemental oxygen is in place. The patient's EKG reveals a sinus rhythm with frequent PVCs. Chest x-ray reveals pulmonary vascular congestion with a underlying consolidation which represents atelectasis or pneumonia. The patient was recently treated for aspiration pneumonia. Blood cultures were obtained and the patient was medicated with IV Levaquin. He was also given 40 mg of IV Lasix. The patient's heart rate remained stable and controlled however his oxygen saturations did drop. He was then placed on nasal cannula oxygen and remained stable. Laboratory work reveals a mild leukocytosis which is improved from previous numbers. His troponin is negative, BNP is mildly elevated. The patient was informed of the findings and was discussed with the hospitalist service. He will be evaluated for admission and further management. Consults Time Called: 1935 Consulting Physician: Dr. Carli [place] Resident Returned Call: 1938 I reviewed the patient's case with Dr. Carli [place] Resident. She will evaluate the patient for further management. Impression Primary Impression: Congestive heart failure Scribe Attestation The scribe's documentation has been prepared under my direction and personally reviewed by me in its entirety. I confirm that the note above accurately reflects all work, treatment, procedures, and medical decision making performed by me. Departure Information Dispostion Being Evaluated By Hospitalist Referrals Jeromy Hanson M.D. (PCP) Patient Instructions My [facility] Problem Qualifiers Primary Impression: Congestive heart failure Congestive heart failure type: unspecified congestive heart failure type Congestive heart failure chronicity: acute on chronic Qualified Codes: I50.9 - Heart failure, unspecified
[2016-07-13 16:54] LABS: HEMATOCRIT 35.1 % (42-52); MEAN CELL VOLUME 87.5 fL (80-100); MEAN CORPUSCULAR HEMOGLOBIN 27.7 pg (25-34); MEAN CORPUSCULAR HGB CONC 31.6 g/dl (32-36); PLATELET COUNT 269 K/uL (130-400); RED BLOOD COUNT 4.01 M/uL (4.7-6.1); WHITE BLOOD COUNT 13.99 K/uL (4.8-10.8)
--- NOTE | 2016-07-13 17:02 | DIAGNOSTIC IMAGING REPORT ---
CHEST ONE VIEW PORTABLE CLINICAL HISTORY: Congestive heart failure. Cough. COMPARISON STUDY: Chest CT June 18, 2016 and chest radiograph June 20, 2016 FINDINGS: There are median sternotomy wires and mediastinal surgical clips. No pneumothorax or pleural effusion is present. Mild cardiomegaly is unchanged. Old left-sided rib fracture is noted. There is mild right lower lung opacity. Pulmonary vascular congestion is noted. IMPRESSION: 1. Mild right lower lung opacity which could reflect atelectasis or consolidation. 2. Pulmonary vascular congestion. Electronically signed by: Gerald Emerson M.D. 07/13/2016 5:00 PM Dictated Date/Time: 07/13/2016 4:58 PM
[2016-07-13 17:03] LABS: PROTHROMBIN TIME (PATIENT) 10.7 SECONDS (9.0-12.0)
[2016-07-13 17:12] LABS: ALT/SGPT 11 U/L (12-78); AST/SGOT 7 U/L (15-37); BLOOD UREA NITROGEN 16 mg/dl (7-18); BUN/CREATININE RATIO 11.7 (10-20); CALCIUM 8.7 mg/dl (8.5-10.1); CARBON DIOXIDE 31 mmol/L (21-32); CHLORIDE 104 mmol/L (98-107); GLUCOSE 85 mg/dl (70-99); MAGNESIUM 2.4 mg/dl (1.8-2.4); POTASSIUM 3.7 mmol/L (3.5-5.1); SODIUM 143 mmol/L (136-145)
[2016-07-13 17:17] LABS: ALKALINE PHOSPHATASE 106 U/L (45-117); CKMB/CK RATIO 4.3 (0-3.0)
[2016-07-13 17:20] LABS: BASO ABS # 0.13 K/uL (0-0.2); BASOPHIL % 0.9 % (0-2); COMPLETE YES; DOHLE BODIES 1+; EOSINOPHIL % 0.9 %; LYMPH ABS # 1.82 K/uL (1.2-3.4); META ABS # 0.13 K/uL (0-0); METAMYELOCYTE % 0.9 %; NEUTROPHILS % 73.9 %
[2016-07-13] MEDS ORDERED: FUROSEMIDE 40 MG/4 ML VIAL IV STA (19:41)
[2016-07-13] MEDS ORDERED: LEVAQUIN 750MG / 150ML D5W IV STA (19:41)
[2016-07-13] MEDS ORDERED: ZOLPIDEM TARTRATE 5 MG TAB PO PRN (21:15)
[2016-07-13] MEDS ORDERED: NITROGLYCERIN 0.4 MG SL PER TAB CHARGE SL PRN (21:15)
[2016-07-13] MEDS ORDERED: ONDANSETRON INJ 2 MG/ML 2 ML VIAL IV PRN (21:15)
[2016-07-13] MEDS ORDERED: IPRATROPIUM BROMIDE NEB SOLN 0.02% 2.5 ML VIAL INH PRN (22:30)
[2016-07-13] MEDS ORDERED: LEVALBUTEROL 1.25MG/0.5ML NEB INH PRN (22:30)
[2016-07-13] MEDS ORDERED: VANCOMYCIN INJ 1,000 MG in SODIUM CHLORIDE 0.9% 250ML 250 ML IV STA (23:05)
--- NOTE | 2016-07-13 23:13 | History and Physical ---
History & Physical Date & Time of Service: Jul 13, 2016 at 22:56 Chief Complaint: Breathing Is Bad-Physician Referred Primary Care Physician: Jeromy Hanson M.D. History of Present Illness Source: patient, spouse The patient is a 65-year-old male presents to the emergency department with worsening productive cough and shortness of breath over the past few days. His reports that he was evaluated by the home health nurse today,who called the patient's PCP, who then recommended that patient come to emergency department for evaluation. He was most recently been on any from June 17 through June 23 for acute on chronic diastolic CHF, and was started on Lasix at that time. He feels his symptoms are similar now to that time as well. His has also noted him having more audible congested breath sounds. Past Medical/Surgical History Medical Problems: (1) Bronchitis Status: Resolved (2) Chest wall pain Status: Resolved (3) COPD (chronic obstructive pulmonary disease) Status: Chronic (4) Fall Status: Resolved (5) Heart disease Status: Chronic (6) Hyperlipidemia Status: Chronic (7) Hypertension Status: Chronic (8) Parkinson disease Status: Chronic (9) Shoulder pain Status: Resolved Surgical Problems: (1) History of appendectomy Status: Resolved (2) S/P CABG x 2 Status: Resolved Family History FH: heart disease Hypertension Social History Smoking Status: Current Some Day Smoker Smokeless Tobacco Use: No Alcohol Use: none Drug Use: none Marital Status: Housing status: lives with family Occupational Status: disabled Immunizations History of Influenza Vaccine: Yes Influenza Vaccine Date: Mar 07, 2007 History of Tetanus Vaccine?: Yes Tetanus Immunization Date: Jul 19, 2010 History of Pneumococcal: Yes History of Hepatitis B Vaccine: No Multi-Drug Resistant Organisms History of MDRO: Yes Type of MDRO: MRSA Allergies Coded Allergies: BEE STING (Verified Allergy, Severe, ANAPHYLAXIS, 06/17/16) Benztropine (Verified Adverse Reaction, Intermediate, hallucinations/ mental confusion, 06/17/16) Eletriptan (Verified Adverse Reaction, Intermediate, CONFUSION, 06/17/16) Ropinirole (Verified Adverse Reaction, Unknown, unknown, 06/17/16) Home Medications Scheduled Albuterol Hfa (Ventolin Hfa), 2 PUFFS INH QID Amiodarone HCl (Amiodarone HCl), 200 MG PO DAILY Amlodipine (Norvasc), 10 MG PO DAILY Aspirin (Aspirin Ec), 81 MG PO DAILY Carbidopa/Levodopa (Sinemet Cr 25MG/100MG), 2 TAB PO QAM Carbidopa/Levodopa (Sinemet 25MG/250MG), 1 TAB PO PM Carbidopa/Levodopa (Sinemet 25MG/100MG), 1 TAB PO qafternoon Cholecalciferol (Vitamin D3), 1 CAP PO DAILY Desloratadine (Clarinex), 5 MG PO DAILY Docusate Sodium (Colace), 100 MG PO BID Duloxetine HCl (Cymbalta), 30 MG PO DAILY Fluticasone Prop/Salmeterol (Advair Diskus 250-50 Mcg/Dose), 1 PUFF INH Q12 Furosemide (Lasix), 2 TAB PO DAILY Hydralazine Hcl (Apresoline), 1 TAB PO TID Lubiprostone (Amitiza), 8 MCG PO DAILY Metoprolol Succ (Toprol Xl) (Toprol-Xl), 75 MG PO HS Polyethylene Glycol 3350 (Miralax), 17 GM PO BID Potassium Chloride (Klor-Con M20), 20 MEQ PO DAILY Simvastatin (Zocor), 20 MG PO QPM Tamsulosin HCl (Tamsulosin HCl), 0.4 MG PO HS Tiotropium [place] (Spiriva Handihaler), 1 PUFF INH QAM Scheduled PRN Acetaminophen (Tylenol), 650 MG PO Q6 PRN for Mild Pain Acetaminophen (Tylenol), 650 MG PO Q6 PRN for TEMP > 101 Review of Systems The patient denies chest pain, lower extremity swelling, vision change, hearing change, sore throat, fevers, chills, sweats, weight change, fatigue, nausea, vomiting, abdominal pain, pelvic pain, blood in urine or stool, dysuria, urinary frequency or urgency, lightheadedness, dizziness, headache, rash, abnormal bruising or bleeding, imbalance, focal weakness, numbness or tingling in arms or legs, arthralgias or myalgias, back or neck pain, night sweats, or allergy symptoms. He continues to have his baseline Parkinsonian tremor. The review of systems is otherwise negative other than for that already noted above, and at least 10 systems have been reviewed. Physical Exam Vital Signs Date Time Temp Pulse Resp B/P Pulse Ox O2 Delivery O2 Flow Rate FiO2 07/13/16 21:38 79 20 135/101 95 Room Air 07/13/16 20:58 78 20 140/79 96 Room Air 07/13/16 20:51 73 07/13/16 19:48 79 20 161/77 97 Room Air 07/13/16 18:30 156/81 07/13/16 18:28 105 21 156/85 92 07/13/16 18:23 83 25 91 07/13/16 18:18 81 21 99 07/13/16 18:13 83 23 97 07/13/16 18:08 84 27 96 07/13/16 18:03 81 22 94 07/13/16 17:58 81 22 97 07/13/16 17:53 80 16 97 07/13/16 17:48 77 21 97 07/13/16 17:43 79 20 97 07/13/16 17:38 80 156/72 96 07/13/16 17:33 82 22 96 07/13/16 17:30 156/72 07/13/16 17:28 76 20 98 07/13/16 17:18 86 25 95 07/13/16 17:13 85 23 94 07/13/16 17:08 77 20 100 07/13/16 17:03 77 16 100 07/13/16 16:58 79 17 98 07/13/16 16:53 77 24 89 07/13/16 16:48 117 22 86 07/13/16 16:46 78 07/13/16 16:43 76 18 07/13/16 16:35 91 Room Air 07/13/16 16:19 137/53 07/13/16 16:05 36.9 64 18 131/64 98 Room Air The patient is awake, well-developed and adequately nourished, alert and oriented 3, normocephalic and atraumatic, lying in bed and in no acute distress. He continues with cyclical upper extremity parkinsonian tremor. HEENT--PERRL, EOMI, mucous membranes and oropharynx dry. Neck--supple, no JVD or bruits, thyroid normal, trachea midline, no adenopathy. Heart--normal S1 and S2, no extra beats, no murmurs, rubs or gallops. Lungs--rhonchi bilaterally, right greater than left. No respiratory distress, no accessory muscle use. Abdomen--normal bowel sounds and soft, nontender and nondistended, no hernias or masses, no organomegaly. Extremities--no cyanosis, clubbing or edema. There are good distal pulses b/l. Dermatologic--normal skin turgor, normal color, warm and dry, no abnormal lymph nodes, no rash. Neurologic--cranial nerves II through XII grossly intact. Parkinsonian tremor is noted above Rheumatologic--normal range of motion, nontender, muscles and joints. Psychiatric--normal affect. Diagnostics Laboratory Results Results Past 24 Hours Test 07/13/16 16:43 07/13/16 16:49 Range/Units White Blood Count 13.99 4.8-10.8 K/uL Red Blood Count 4.01 4.7-6.1 M/uL Hemoglobin 11.1 14.0-18.0 g/dL Hematocrit 35.1 42-52 % Mean Corpuscular Volume 87.5 80-100 fL Mean Corpuscular Hemoglobin 27.7 25-34 pg Mean Corpuscular Hemoglobin Concent 31.6 32-36 g/dl Platelet Count 269 130-400 K/uL Mean Platelet Volume 9.0 7.4-10.4 fL RDW Standard Deviation 60.7 36.4-46.3 fL RDW Coefficient of Variation 18.9 11.5-14.5 % Neutrophils % (Manual) 73.9 % Lymphocytes % (Manual) 13.0 % Monocytes % (Manual) 10.4 % Eosinophils % (Manual) 0.9 % Basophils % (Manual) 0.9 0-2 % Metamyelocytes % 0.9 % Neutrophils # (Manual) 10.34 1.4-6.5 K/uL Total Absolute Neutrophils 10.34 1.4-6.5 K/uL Lymphocytes # (Manual) 1.82 1.2-3.4 K/uL Total Absolute Lymphocytes 1.82 1.2-3.4 K/uL Monocytes # (Manual) 1.45 0.11-0.59 K/uL Eosinophils # (Manual) 0.13 0-0.5 K/uL Basophils # (Manual) 0.13 0-0.2 K/uL Metamyelocytes # 0.13 0-0 K/uL Dohle Bodies 1+ Prothrombin Time 10.7 9.0-12.0 SECONDS Prothromb Time International Ratio 1.0 0.9-1.1 Activated Partial Thromboplast Time 25.9 21.0-31.0 SECONDS Partial Thromboplastin Ratio 1.0 Sodium Level 143 136-145 mmol/L Potassium Level 3.7 3.5-5.1 mmol/L Chloride Level 104 98-107 mmol/L Carbon Dioxide Level 31 21-32 mmol/L Anion Gap 8.0 3-11 mmol/L Blood Urea Nitrogen 16 7-18 mg/dl Creatinine 1.40 0.60-1.40 mg/dl Est Creatinine Clear Calc Drug Dose 60.5 ml/min Estimated GFR () 59.8 Estimated GFR (Non- 51.6 BUN/Creatinine Ratio 11.7 10-20 Random Glucose 85 70-99 mg/dl Calcium Level 8.7 8.5-10.1 mg/dl Magnesium Level 2.4 1.8-2.4 mg/dl Total Bilirubin 0.3 0.2-1 mg/dl Direct Bilirubin < 0.1 0-0.2 mg/dl Aspartate Amino Transf (AST/SGOT) 7 15-37 U/L Alanine Aminotransferase (ALT/SGPT) 11 12-78 U/L Alkaline Phosphatase 106 45-117 U/L Total Creatine Kinase 30 39-308 U/L Creatine Kinase MB 1.3 0.5-3.6 ng/ml Creatine Kinase MB Ratio 4.3 0-3.0 Total Protein 7.9 6.4-8.2 gm/dl Albumin 3.0 3.4-5.0 gm/dl Bedside Troponin I 0.000 0-0.045 ng/ml [id number] Natriuretic Peptide 1030 0-900 pg/ml Microbiology Results 07/13/16 Blood Culture, Received Pending 07/13/16 Blood Culture, Received Pending Diagnostic Radiology Patient Name: KAILYN JORDAN Unit Number: [id number] Dictated: 07/13/161657 Transcribed: 07/13/161657 JONH Printed Date/Time: [~ rep prt dt]/[~ rep prt tm] [~ rep ct labl] - [~ rep ct ivnm] [facility] [place] [address] Dictated: 07/13/[id number] Transcribed: 07/13/16 1658 JA Printed Date/Time: [~ rep prt dt]/[~ rep prt tm] [~ rep ct labl] - [~ rep ct ivnm] [~ rep ct add3]] CHEST ONE VIEW PORTABLE CLINICAL HISTORY: Congestive heart failure. Cough. COMPARISON STUDY: Chest CT June 18, 2016 and chest radiograph June 20, 2016 FINDINGS: There are median sternotomy wires and mediastinal surgical clips. No pneumothorax or pleural effusion is present. Mild cardiomegaly is unchanged. Old left-sided rib fracture is noted. There is mild right lower lung opacity. Pulmonary vascular congestion is noted. IMPRESSION: 1. Mild right lower lung opacity which could reflect atelectasis or consolidation. 2. Pulmonary vascular congestion. Electronically signed by: Gerald Emerson M.D. 07/13/2016 5:00 PM Dictated Date/Time: 07/13/2016 4:58 PM The status of this report is Signed. Draft = Not yet reviewed or approved by Radiologist. Signed = Reviewed and approved by Radiologist. <AttendingPhy></AttendingPhy> <FamilyPhy>Jeromy Hanson M.D.</FamilyPhy > <PrimaryPhy>Jeromy Hanson M.D.</PrimaryPhy> <UnitNumber>[id number]</ UnitNumber> <VisitNumber>[id number]</VisitNumber> <PatientName>KAILYN JORDAN</ PatientName> <DateOfBirth>1950</DateOfBirth> <Location>[facility]</Location> < ServiceDate>07/13/16</ServiceDate> <MNE>ESINDI</MNE> <OrderingPhy>Adriana Rodriguez M.D.</OrderingPhy> <OrderingPhyMNE>f rep ord dr stewart</OrderingPhyMNE> < DictatingPhyMNE>f rep dict dr stewart</DictatingPhyMNE> <CCListMNE>f rep ct mne</ CCListMNE> <AdmittingPhyMNE>f pt admit dr stewart</AdmittingPhyMNE> <AttendingPhyMNE >f pt attend dr stewart</AttendingPhyMNE> <ConsultingPhyMNE>f pt consult dr stewart</ConsultingPhyMNE> <FamilyPhyMNE>f pt fam dr stewart</FamilyPhyMNE> <OtherPhyMNE>f pt other dr stewart</OtherPhyMNE> < PrimaryPhyMNE>f pt prim care dr stewart</PrimaryPhyMNE> <ReferringPhyMNE>f pt referring dr stewart</ReferringPhyMNE> EKG EKG shows normal sinus rhythm at 77 beats minute, PACs with aberrancy conduction , prolonged QT. Impression Assessment and Plan Right middle and right lower lobe pneumonia/history of MRSA--the patient will be placed on vancomycin IV per renal dosing, ceftriaxone 1 g IV daily, levofloxacin 500 mg IV every 24 hours, guaifenesin extended release 60 mg by mouth twice a day, Solu-Medrol 40 mg IV every 8 hours, Xopenex with Atrovent nebulizer use every 6 hours while awake and every 2 hours when necessary. Hold Advair Diskus, Spiriva HandiHaler and Ventolin HFA. Acute on chronic diastolic CHF/CAD/hypertension/status post CABG 2--patient received Lasix 40 mg IV in the emergency department with good response. Continue amiodarone 200 mg by mouth daily, amlodipine 10 mg by mouth daily, enteric-coated aspirin 81 mg by mouth daily, furosemide 40 mg by mouth daily, hydralazine 100 mg by mouth 3 times a day, metoprolol succinate 75 mg by mouth at bedtime, and potassium chloride 20 mEq by mouth daily. Follow serial BMP and magnesium levels. Parkinson's--continue usual dosing of Sinemet CR 25/100 mg, taken 2 tablets by mouth every morning. Sinemet 25/250 one by mouth every afternoon. And Sinemet 25/100 one by mouth every afternoon. Hypercholesterolemia--continue simvastatin 20 mg by mouth every afternoon. BPH--continue tamsulosin 0.4 mg by mouth at bedtime. Depression--continue duloxetine 30 mg by mouth daily. GI dysmotility--continue Amitiza 8 g by mouth daily. Seasonal allergy--continue Clarinex 5 mg by mouth daily. Constipation--continue MiraLAX 17 g by mouth twice a day and Colace 100 mg by mouth twice a day. Vitamin D deficiency--continue cholecalciferol 2000units by mouth daily. Level of Care Telemetry Advanced Directives Existing Advance Directive: No Existing Living Will: No Existing Power of Vascular Surgeon: No Resuscitation Status FULL RESUSCITATION VTE Prophylaxis VTE Risk Assessment Done? Y/N: Yes Risk Level: Moderate Given or contraindicated: SCD's
[2016-07-14] VITALS (8 sets, daily range): BP systolic 126–151; BP diastolic 68–81; PULSE 69–84; TEMP 36.6–36.8; O2SAT 92–99; Ht 177.8 cm; Wt 96.5 kg
[2016-07-14] MEDS ORDERED: VANCOMYCIN CONSULT ACTIVE PRN (00:30)
[2016-07-14] MEDS: METHYLPREDNISOLONE IV 40 MG in SYRINGE 0 ML IV SCH ×3 (00:51→17:05)
[2016-07-14] MEDS: CEFTRIAXONE SOD INJ 1 GM in DEXTROSE 5% ADD-VANTAGE 50ML 50 ML IV SCH (00:51)
[2016-07-14] MEDS ORDERED: VANCOMYCIN INJ 2,500 MG in SODIUM CHLORIDE 0.9% 500ML 500 ML IV SCH (01:00)
[2016-07-14] MEDS: IPRATROPIUM BROMIDE NEB SOLN 0.02% 2.5 ML VIAL INH SCH ×4 (03:00→19:53)
[2016-07-14] MEDS ORDERED: LEVALBUTEROL/IPRATROPIUM NEB INH SCH (03:00)
[2016-07-14] MEDS: LEVALBUTEROL 1.25MG/0.5ML NEB INH SCH ×4 (03:00→19:53)
[2016-07-14] MEDS: ACETAMINOPHEN 325 MG TAB PO PRN (04:00)
[2016-07-14 06:25] LABS: HEMATOCRIT 32.6 % (42-52); MEAN CORPUSCULAR HEMOGLOBIN 27.4 pg (25-34); MEAN CORPUSCULAR HGB CONC 31.9 g/dl (32-36); MEAN PLATELET VOLUME 9.3 fL (7.4-10.4); PLATELET COUNT 273 K/uL (130-400); RED BLOOD COUNT 3.79 M/uL (4.7-6.1); WHITE BLOOD COUNT 11.03 K/uL (4.8-10.8)
[2016-07-14 06:50] LABS: BUN/CREATININE RATIO 10.8 (10-20); CALCIUM 8.8 mg/dl (8.5-10.1); CREATININE 1.4 mg/dl (0.60-1.40); MAGNESIUM 2.1 mg/dl (1.8-2.4); POTASSIUM 3.7 mmol/L (3.5-5.1)
[2016-07-14 07:15] LABS: BASO % 0.7 %; BASO ABS # 0.08 K/uL (0-0.2); COMPLETE YES; EOS % 0.4 %; IG% 6.7 %; LYMPH % 11.2 %; LYMPH ABS # 1.24 K/uL (1.2-3.4); MONO % 1.2 %; NEUT % 79.8 %
[2016-07-14] MEDS: CLARINEX~ORDER AWAITING ACTION SCH ×3 (08:00→16:00)
[2016-07-14] MEDS ORDERED: FUROSEMIDE 20 MG TAB PO SCH ×2 (08:00→21:00)
[2016-07-14] MEDS ORDERED: INFLUENZA ADMINISTRATION CHARGE ONE (08:00)
[2016-07-14] MEDS ORDERED: INFLUENZA VIRUS QUAD VACCINE 0.5 ML SYR IM. ONE (08:00)
[2016-07-14] MEDS: DULOXETINE (CYMBALTA) 30 MG CAP PO SCH (08:20)
[2016-07-14] MEDS: CHOLECALCIFEROL 1000 INTER.UNIT TAB PO SCH (08:20)
[2016-07-14] MEDS: AMIODARONE 200 MG TAB PO SCH (08:21)
[2016-07-14] MEDS: POLYETHYLENE (MIRALAX) 17 GM PACK PO SCH ×2 (08:21→20:00)
[2016-07-14] MEDS: AMLODIPINE BESYLATE 5 MG TAB PO SCH (08:21)
[2016-07-14] MEDS: DOCUSATE SODIUM 100 MG CAP PO SCH ×2 (08:22→20:24)
[2016-07-14] MEDS: GUAIFENESIN 600 MG TABCR PO SCH ×2 (08:22→20:27)
[2016-07-14] MEDS: ASPIRIN 81 MG ECTAB PO SCH (08:23)
[2016-07-14] MEDS: LUBIPROSTONE 8 MCG CAP PO SCH (08:24)
[2016-07-14] MEDS: CARBIDOPA/LEVODOPA 25/100MG EXT REL TAB PO SCH (08:25)
[2016-07-14] MEDS: POTASSIUM CHLORIDE 20 MEQ TABCR PO SCH (08:25)
--- NOTE | 2016-07-14 10:08 | Progress Note ---
Subjective Date of Service: Jul 14, 2016. Subjective Pt evaluation today including: conversation w/ patient, physical exam, chart review, lab review, review of studies, conversation w/ lead consultant, review of inpatient medication list Obvious resting tremor, feeling that it'll be better, pulse ox is 88% without oxygen, put it back on oxygen again Problem List Medical Problems: (1) Altered mental status Status: Acute (2) Altered mental status Status: Acute (3) Congestive heart failure Status: Acute (4) Cough Status: Acute (5) Generalized weakness Status: Acute (6) Intractable pain Status: Acute (7) Leukocytosis Status: Acute (8) Low back pain Status: Acute (9) Lumbar disc disease Status: Acute (10) New onset of congestive heart failure Status: Acute (11) New onset seizure Status: Acute (12) Parkinson's disease Status: Acute (13) Parkinson's disease (tremor, stiffness, slow motion, unstableposture) Status: Acute (14) Post op infection Status: Acute (15) Right hip pain Status: Acute (16) Sciatica Status: Acute (17) Sepsis Status: Acute (18) Shaking Status: Acute (19) Shortness of breath Status: Acute Review of Systems Constitutional: No chills, No fatigue, No fever, No problem reported, No sweats , No weakness, No weight loss Eyes: No diplopia, No discharge, No eye pain, No redness, No worsening of vision ENT: No dental problems, No hearing loss, No nasal symptoms, No sore throat, No tinnitus, No trouble swallowing, No unusual epistaxis Respiratory: + cough, + shortness of breath, No dyspnea at rest, No dyspnea on exertion, No hemoptysis, No sputum, No wheezing Cardiac: + edema (trace edema to 1+), No PND, No chest pain, No claudication, No orthopnea, No palpitations Abdomen: No constipation, No diarrhea, No nausea, No pain, No vomiting Musculoskeletal: No calf pain, No joint pain, No muscle pain, No swelling Male : No dysuria, No hematuria, No incontinence, No nocturia more than once/ night, No slowing stream, No urinary frequency Neurologic: No balance problems, No memory loss, No numbness/tingling, No paralysis, No vertigo, No weakness Psychiatric: + see HPI, No anhedonism, No anxiety, No depression symptoms, No insomnia, No substance abuse Heme: No abnormal bleeding/bruising, No clotting problems, No night sweats, No swollen lymph nodes Endo: No excessive thirst, No excessive urination, No fatigue Skin: No bleeding, No color change, No itch, No new/changing skin lesions, No rash Objective Vital Signs Date Time Temp Pulse Resp B/P Pulse Ox O2 Delivery O2 Flow Rate FiO2 07/14/16 07:45 36.6 84 16 139/68 92 Room Air 07/14/16 07:39 84 18 94 Room Air 07/14/16 00:54 2.0 07/14/16 00:29 36.8 69 20 151/81 99 Nasal Cannula 2.0 07/13/16 21:38 79 20 135/101 95 Room Air 07/13/16 20:58 78 20 140/79 96 Room Air 07/13/16 20:51 73 07/13/16 19:48 79 20 161/77 97 Room Air 07/13/16 18:30 156/81 07/13/16 18:28 105 21 156/85 92 07/13/16 18:23 83 25 91 07/13/16 18:18 81 21 99 07/13/16 18:13 83 23 97 07/13/16 18:08 84 27 96 07/13/16 18:03 81 22 94 07/13/16 17:58 81 22 97 07/13/16 17:53 80 16 97 07/13/16 17:48 77 21 97 07/13/16 17:43 79 20 97 07/13/16 17:38 80 156/72 96 07/13/16 17:33 82 22 96 07/13/16 17:30 156/72 07/13/16 17:28 76 20 98 07/13/16 17:18 86 25 95 07/13/16 17:13 85 23 94 07/13/16 17:08 77 20 100 07/13/16 17:03 77 16 100 07/13/16 16:58 79 17 98 07/13/16 16:53 77 24 89 07/13/16 16:48 117 22 86 07/13/16 16:46 78 07/13/16 16:43 76 18 07/13/16 16:35 91 Room Air 07/13/16 16:19 137/53 07/13/16 16:05 36.9 64 18 131/64 98 Room Air Physical Exam General Appearance: WD/WN, no apparent distress, + pertinent finding (look much older than his age) Eyes: normal inspection, PERRL, EOMI, sclerae normal ENT: normal ENT inspection, hearing grossly normal, pharynx normal Neck: supple, no adenopathy, thyroid normal, no JVD, no carotid bruits, trachea midline Respiratory/Chest: chest non-tender, normal breath sounds, no respiratory distress, no accessory muscle use, + decreased breath sounds, + crackles (in the base of the lung), + rales Cardiovascular: regular rate, rhythm, no gallop, no JVD, no murmur, + pertinent finding (trace edema) Abdomen: normal bowel sounds, non tender, soft, no organomegaly, no pulsatile mass Extremities: normal range of motion, non-tender, normal inspection, no pedal edema, no calf tenderness, normal capillary refill, pelvis stable Neurologic/Psychiatric: care transition mgr II-XII nml as tested, no motor/sensory deficits, alert, normal mood/affect, oriented x 3 Skin: normal color, warm/dry, no rash Lymphatic: no adenopathy Laboratory Results Last 24 Hours Test 07/13/16 16:43 07/13/16 16:49 07/14/16 05:35 White Blood Count 13.99 K/uL 11.03 K/uL Red Blood Count 4.01 M/uL 3.79 M/uL Hemoglobin 11.1 g/dL 10.4 g/dL Hematocrit 35.1 % 32.6 % Mean Corpuscular Volume 87.5 fL 86.0 fL Mean Corpuscular Hemoglobin 27.7 pg 27.4 pg Mean Corpuscular Hemoglobin Concent 31.6 g/dl 31.9 g/dl Platelet Count 269 K/uL 273 K/uL Mean Platelet Volume 9.0 fL 9.3 fL RDW Standard Deviation 60.7 fL 59.7 fL RDW Coefficient of Variation 18.9 % 18.6 % Neutrophils % (Manual) 73.9 % Lymphocytes % (Manual) 13.0 % Monocytes % (Manual) 10.4 % Eosinophils % (Manual) 0.9 % Basophils % (Manual) 0.9 % Metamyelocytes % 0.9 % Neutrophils # (Manual) 10.34 K/uL Total Absolute Neutrophils 10.34 K/uL Lymphocytes # (Manual) 1.82 K/uL Total Absolute Lymphocytes 1.82 K/uL Monocytes # (Manual) 1.45 K/uL Eosinophils # (Manual) 0.13 K/uL Basophils # (Manual) 0.13 K/uL Metamyelocytes # 0.13 K/uL Dohle Bodies 1+ Prothrombin Time 10.7 SECONDS Prothromb Time International Ratio 1.0 Activated Partial Thromboplast Time 25.9 SECONDS Partial Thromboplastin Ratio 1.0 Sodium Level 143 mmol/L 139 mmol/L Potassium Level 3.7 mmol/L 3.7 mmol/L Chloride Level 104 mmol/L 102 mmol/L Carbon Dioxide Level 31 mmol/L 29 mmol/L Anion Gap 8.0 mmol/L 8.0 mmol/L Blood Urea Nitrogen 16 mg/dl 15 mg/dl Creatinine 1.40 mg/dl 1.40 mg/dl Est Creatinine Clear Calc Drug Dose 60.5 ml/min 60.5 ml/min Estimated GFR () 59.8 59.8 Estimated GFR (Non- 51.6 51.6 BUN/Creatinine Ratio 11.7 10.8 Random Glucose 85 mg/dl 133 mg/dl Calcium Level 8.7 mg/dl 8.8 mg/dl Magnesium Level 2.4 mg/dl 2.1 mg/dl Total Bilirubin 0.3 mg/dl Direct Bilirubin < 0.1 mg/dl Aspartate Amino Transf (AST/SGOT) 7 U/L Alanine Aminotransferase (ALT/SGPT) 11 U/L Alkaline Phosphatase 106 U/L Total Creatine Kinase 30 U/L Creatine Kinase MB 1.3 ng/ml Creatine Kinase MB Ratio 4.3 Total Protein 7.9 gm/dl Albumin 3.0 gm/dl Bedside Troponin I 0.000 ng/ml [id number]-Type Natriuretic Peptide 1030 pg/ml Neutrophils (%) (Auto) 79.8 % Lymphocytes (%) (Auto) 11.2 % Monocytes (%) (Auto) 1.2 % Eosinophils (%) (Auto) 0.4 % Basophils (%) (Auto) 0.7 % Neutrophils # (Auto) 8.80 K/uL Lymphocytes # (Auto) 1.24 K/uL Monocytes # (Auto) 0.13 K/uL Eosinophils # (Auto) 0.04 K/uL Basophils # (Auto) 0.08 K/uL Immature Granulocyte % (Auto) 6.7 % Immature Granulocyte # (Auto) 0.74 K/uL Assessment and Plan 65-year-old male admitted on 07/13/2016, with worsening productive cough and shortness of breath over the past few days. Per report . His reports that he was evaluated by the home health nurse today,who called the patient's PCP, who then recommended that patient come to emergency department for evaluation. He was most recently been on any from June 17 through June 23 for acute on chronic diastolic CHF, and was started on Lasix at that time. He feels his symptoms are similar now to that time as well. His has also noted him having more audible congested breath sounds. Right middle and right lower lobe pneumonia/history of MRSA stable Continue IV per renal dosing, ceftriaxone 1 g IV daily, levofloxacin 500 mg IV every 24 hours, guaifenesin extended release 60 mg by mouth twice a day, Continue Solu-Medrol 40 mg IV every 8 hours, Xopenex with Atrovent nebulizer use every 6 hours while awake and every 2 hours when necessary. Hold Advair Diskus, Spiriva HandiHaler and Ventolin HFA. Acute on chronic diastolic CHF/CAD/hypertension/status post CABG 2, stable eceived Lasix 40 mg IV in the emergency department with good response. Continue amiodarone 200 mg by mouth daily, amlodipine 10 mg by mouth daily, Continue enteric-coated aspirin 81 mg by mouth daily, Change furosemide 40 mg by mouth twice a day Follow-up renal function Continue hydralazine 100 mg by mouth 3 times a day, metoprolol succinate 75 mg by mouth at bedtime, and potassium chloride 20 mEq by mouth daily. Severe Parkinson's continue usual dosing of Sinemet CR 25/100 mg, taken 2 tablets by mouth every morning. Sinemet 25/250 one by mouth every afternoon. Continue Sinemet 25/100 one by mouth every afternoon. Hypercholesterolemia BPH Depression- GI dysmotility Seasonal allergy Constipation The above condition is stable, continue current care Vitamin D deficiency--continue cholecalciferol 2000units by mouth daily. GI and DVT prophylaxis is ordered, [facility] nursing home social worker consultation Continued [facility] stay due to: multiple IV medications needed Discharge planning: home
--- NOTE | 2016-07-14 10:54 | Pharmacy Progress Note ---
Pharmacy Antibiotic Consult Date of Service: Jul 14, 2016. Pharmacy Dosing Scope Pharmacy is consulted to initiate Vancomycin IV dosing therapy for pneumonia in a patient with a history of MRSA, order appropriate labs and adjust drug dose/ frequency. Subjective The patient is a 65 year old male admitted on Jul 13, 2016 at 21:07. Objective Height (Feet): 5 Height (Inches): 10.00 Weight (Kilograms): 99.500 Lab Results (24hrs): Laboratory Tests Test 07/13/16 16:43 07/14/16 05:35 BUN/Creatinine Ratio 11.7 10.8 Blood Urea Nitrogen 16 mg/dl 15 mg/dl Creatinine 1.40 mg/dl 1.40 mg/dl White Blood Count 13.99 K/uL 11.03 K/uL Red Blood Count 4.01 M/uL 3.79 M/uL Hemoglobin 11.1 g/dL 10.4 g/dL Hematocrit 35.1 % 32.6 % Mean Corpuscular Volume 87.5 fL 86.0 fL Mean Corpuscular Hemoglobin 27.7 pg 27.4 pg Mean Corpuscular Hemoglobin Concent 31.6 g/dl 31.9 g/dl Platelet Count 269 K/uL 273 K/uL Mean Platelet Volume 9.0 fL 9.3 fL Neutrophils (%) (Auto) 79.8 % Lymphocytes (%) (Auto) 11.2 % Monocytes (%) (Auto) 1.2 % Eosinophils (%) (Auto) 0.4 % Basophils (%) (Auto) 0.7 % Neutrophils # (Auto) 8.80 K/uL Lymphocytes # (Auto) 1.24 K/uL Monocytes # (Auto) 0.13 K/uL Eosinophils # (Auto) 0.04 K/uL Basophils # (Auto) 0.08 K/uL Micro Results: Item Value Date Time Blood Culture Received 07/13/16 1710 Blood Pending Blood Culture Received 07/13/16 1643 Blood Pending Recent Pertinent Medications Item Value Date Time Levofloxacin 750 mg 07/13/161940 (Levaquin / D5W) NOW STAT/IV 07/13/162101 Levofloxacin 500 100 ml @ 100 mls/hr 07/14/16 2100 mg/Prmx Q24H/IV Ceftriaxone 50 ml @ 100 mls/hr 07/14/16 0030 Sodium 1 gm/ Q24H/IV 07/14/16 0051 Dextrose Assessment & Plan Pharmacy is consulted to initiate Vancomycin IV dosing therapy for pneumonia in a patient with a history of MRSA. Loading dose: Vancomycin 2500 mg (~25mg/kg) IV X 1 dose then: Vancomycin 1600 mg (~16mg/kg) IV every 18 hours. * Estimated P'kinetic levels: ke= 0.0546/hr, t1/2= 13 hrs * Goal trough level estimate: between 15 - 20 mcg/mL. * Trough level has been ordered for: ~30 minutes before the 4th maintenance dose at 0200 when Vancomycin serum concentrations reach steady state. Pharmacy will continue to follow and will adjust dose/frequency as necessary. Thank you
[2016-07-14] MEDS: CARBIDOPA/LEVODOPA 25/100MG TAB PO SCH (17:05)
[2016-07-14] MEDS: VANCOMYCIN INJ 1,600 MG in SODIUM CHLORIDE 0.9% 500ML 500 ML IV SCH (20:22)
[2016-07-14] MEDS: CARBIDOPA/LEVODOPA 25-250 1 EA TAB PO SCH (20:25)
[2016-07-14] MEDS: SIMVASTATIN 20 MG TAB PO SCH (20:26)
[2016-07-14] MEDS: TAMSULOSIN HCL 0.4 MG CAP PO SCH (20:28)
[2016-07-14] MEDS: METOPROLOL SUCC 50MG EXT REL TAB PO SCH (20:29)
[2016-07-14] MEDS: LEVOFLOXACIN / D5W 500 MG in PREMIXED IN D5W 100 ML IV SCH (23:30)
[2016-07-15] VITALS (12 sets, daily range): BP systolic 123–134; BP diastolic 69–74; PULSE 20–90; TEMP 36.6; O2SAT 94–99
[2016-07-15] MEDS: METHYLPREDNISOLONE IV 40 MG in SYRINGE 0 ML IV SCH ×3 (00:59→16:36)
[2016-07-15] MEDS: CEFTRIAXONE SOD INJ 1 GM in DEXTROSE 5% ADD-VANTAGE 50ML 50 ML IV SCH (00:59)
[2016-07-15] MEDS: LEVALBUTEROL 1.25MG/0.5ML NEB INH SCH ×4 (01:52→20:30)
[2016-07-15] MEDS: IPRATROPIUM BROMIDE NEB SOLN 0.02% 2.5 ML VIAL INH SCH ×4 (01:52→20:30)
[2016-07-15 07:16] LABS: BASO % 0.1 %; BASO ABS # 0.02 K/uL (0-0.2); COMPLETE YES; HEMATOCRIT 30.8 % (42-52); IG% 2.6 %; LYMPH % 7.7 %; LYMPH ABS # 1.26 K/uL (1.2-3.4); MEAN CELL VOLUME 85.1 fL (80-100); MEAN CORPUSCULAR HEMOGLOBIN 26.8 pg (25-34); MEAN CORPUSCULAR HGB CONC 31.5 g/dl (32-36); MEAN PLATELET VOLUME 9.4 fL (7.4-10.4); MONO % 4.9 %; NEUT % 84.7 %; PLATELET COUNT 303 K/uL (130-400); RED BLOOD COUNT 3.62 M/uL (4.7-6.1); WHITE BLOOD COUNT 16.44 K/uL (4.8-10.8)
[2016-07-15 07:54] LABS: BUN/CREATININE RATIO 15.5 (10-20); CALCIUM 9.1 mg/dl (8.5-10.1); CREATININE 1.7 mg/dl (0.60-1.40); MAGNESIUM 2.3 mg/dl (1.8-2.4); POTASSIUM 4.2 mmol/L (3.5-5.1)
[2016-07-15] MEDS: GUAIFENESIN 600 MG TABCR PO SCH ×2 (09:00→20:34)
[2016-07-15] MEDS: ACETAMINOPHEN 325 MG TAB PO PRN (09:00)
[2016-07-15] MEDS: PANTOprazole SOD 40 MG TAB PO SCH (09:00)
[2016-07-15] MEDS: ASPIRIN 81 MG ECTAB PO SCH (09:01)
[2016-07-15] MEDS: LUBIPROSTONE 8 MCG CAP PO SCH (09:02)
[2016-07-15] MEDS: AMLODIPINE BESYLATE 5 MG TAB PO SCH (09:02)
[2016-07-15] MEDS: DOCUSATE SODIUM 100 MG CAP PO SCH ×2 (09:03→20:34)
[2016-07-15] MEDS: DULOXETINE (CYMBALTA) 30 MG CAP PO SCH (09:03)
[2016-07-15] MEDS: POTASSIUM CHLORIDE 20 MEQ TABCR PO SCH (09:04)
[2016-07-15] MEDS: AMIODARONE 200 MG TAB PO SCH (09:05)
[2016-07-15] MEDS: CLARINEX~ORDER AWAITING ACTION SCH ×4 (09:06→21:21)
[2016-07-15] MEDS: CHOLECALCIFEROL 1000 INTER.UNIT TAB PO SCH (09:06)
[2016-07-15] MEDS: POLYETHYLENE (MIRALAX) 17 GM PACK PO SCH ×2 (09:09→20:36)
--- NOTE | 2016-07-15 10:34 | Progress Note ---
Subjective Date of Service: Jul 15, 2016. Subjective Pt evaluation today including: conversation w/ patient, physical exam, chart review, lab review, review of studies, review of inpatient medication list Voiding: no voiding problems Patient reported doing okay, eating and walking, still cough, on oxygen, no other complaint Problem List Medical Problems: (1) Altered mental status Status: Acute (2) Altered mental status Status: Acute (3) Congestive heart failure Status: Acute (4) Cough Status: Acute (5) Generalized weakness Status: Acute (6) Intractable pain Status: Acute (7) Leukocytosis Status: Acute (8) Low back pain Status: Acute (9) Lumbar disc disease Status: Acute (10) New onset of congestive heart failure Status: Acute (11) New onset seizure Status: Acute (12) Parkinson's disease Status: Acute (13) Parkinson's disease (tremor, stiffness, slow motion, unstableposture) Status: Acute (14) Post op infection Status: Acute (15) Right hip pain Status: Acute (16) Sciatica Status: Acute (17) Sepsis Status: Acute (18) Shaking Status: Acute (19) Shortness of breath Status: Acute Review of Systems Constitutional: + fatigue, No chills, No fever, No problem reported, No sweats , No weakness, No weight loss Eyes: No diplopia, No discharge, No eye pain, No redness, No worsening of vision ENT: No dental problems, No hearing loss, No nasal symptoms, No sore throat, No tinnitus, No trouble swallowing, No unusual epistaxis Respiratory: + cough, + shortness of breath, No dyspnea at rest, No dyspnea on exertion, No hemoptysis, No sputum, No wheezing Cardiac: No PND, No chest pain, No claudication, No edema, No orthopnea, No palpitations Abdomen: No constipation, No diarrhea, No nausea, No pain, No vomiting Musculoskeletal: No calf pain, No joint pain, No muscle pain, No swelling Male : No dysuria, No hematuria, No incontinence, No nocturia more than once/ night, No slowing stream, No urinary frequency Neurologic: No balance problems, No memory loss, No numbness/tingling, No paralysis, No vertigo, No weakness Psychiatric: No anhedonism, No anxiety, No depression symptoms, No insomnia, No substance abuse Heme: No abnormal bleeding/bruising, No clotting problems, No night sweats, No swollen lymph nodes Endo: No excessive thirst, No excessive urination, No fatigue Skin: No bleeding, No color change, No itch, No new/changing skin lesions, No rash Objective Vital Signs Date Time Temp Pulse Resp B/P Pulse Ox O2 Delivery O2 Flow Rate FiO2 07/15/16 09:05 80 07/15/16 08:54 36.6 90 134/72 94 Nasal Cannula 4.0 20 07/15/16 08:00 Nasal Cannula 2.0 07/15/16 07:56 77 18 98 Nasal Cannula 2.0 07/15/16 01:54 82 18 95 BiPAP/CPAP 2.0 07/15/16 01:52 84 95 2.0 07/15/16 00:00 95 CPAP 2.0 07/15/16 00:00 36.6 81 20 123/72 96 4.0 07/15/16 00:00 95 CPAP 2.0 07/14/16 20:00 95 Room Air 2.0 07/14/16 20:00 95 Nasal Cannula 2.0 CPAP 07/14/16 19:54 82 18 95 Room Air 07/14/16 16:25 36.6 69 20 126/69 97 Nasal Cannula 2.0 07/14/16 16:00 93 Nasal Cannula 2.0 07/14/16 16:00 94 Room Air 2.0 Physical Exam General Appearance: WD/WN, no apparent distress Eyes: normal inspection, PERRL, EOMI, sclerae normal ENT: normal ENT inspection, hearing grossly normal, pharynx normal Neck: supple, no adenopathy, thyroid normal, no JVD, no carotid bruits, trachea midline Respiratory/Chest: chest non-tender, normal breath sounds, no respiratory distress, no accessory muscle use, + decreased breath sounds, + crackles ( bilateral lower lungs has crackles) Cardiovascular: regular rate, rhythm, no edema, no gallop, no JVD, no murmur Abdomen: normal bowel sounds, non tender, soft, no organomegaly, no pulsatile mass Extremities: normal range of motion, non-tender, normal inspection, no pedal edema, no calf tenderness, normal capillary refill, pelvis stable 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, no motor/sensory deficits, alert, normal mood/affect, oriented x 3, + pertinent finding (obvious resting tremor is not new) Skin: normal color, warm/dry, no rash Lymphatic: no adenopathy Laboratory Results Last 24 Hours Test 07/15/16 06:46 White Blood Count 16.44 K/uL Red Blood Count 3.62 M/uL Hemoglobin 9.7 g/dL Hematocrit 30.8 % Mean Corpuscular Volume 85.1 fL Mean Corpuscular Hemoglobin 26.8 pg Mean Corpuscular Hemoglobin Concent 31.5 g/dl Platelet Count 303 K/uL Mean Platelet Volume 9.4 fL Neutrophils (%) (Auto) 84.7 % Lymphocytes (%) (Auto) 7.7 % Monocytes (%) (Auto) 4.9 % Eosinophils (%) (Auto) 0.0 % Basophils (%) (Auto) 0.1 % Neutrophils # (Auto) 13.93 K/uL Lymphocytes # (Auto) 1.26 K/uL Monocytes # (Auto) 0.81 K/uL Eosinophils # (Auto) 0.00 K/uL Basophils # (Auto) 0.02 K/uL RDW Standard Deviation 57.6 fL RDW Coefficient of Variation 18.5 % Immature Granulocyte % (Auto) 2.6 % Immature Granulocyte # (Auto) 0.42 K/uL Sodium Level 139 mmol/L Potassium Level 4.2 mmol/L Chloride Level 101 mmol/L Carbon Dioxide Level 28 mmol/L Anion Gap 10.0 mmol/L Blood Urea Nitrogen 26 mg/dl Creatinine 1.70 mg/dl Est Creatinine Clear Calc Drug Dose 49.1 ml/min Estimated GFR () 47.3 Estimated GFR (Non- 40.8 BUN/Creatinine Ratio 15.5 Random Glucose 155 mg/dl Calcium Level 9.1 mg/dl Magnesium Level 2.3 mg/dl Assessment and Plan 65-year-old male admitted on 07/13/2016, with worsening productive cough and shortness of breath over the past few days. Per report . His reports that he was evaluated by the home health nurse today,who called the patient's PCP, who then recommended that patient come to emergency department for evaluation. He was most recently been on any from June 17 through June 23 for acute on chronic diastolic CHF, and was started on Lasix at that time. He feels his symptoms are similar now to that time as well. His has also noted him having more audible congested breath sounds. Right middle and right lower lobe pneumonia/history of MRSA stable No fever and chill bu tmild leukocytosis upon admission Today's worsening leukocytosis possible because of Solu-Medrol Continue IV vancomycin per renal dosing, ceftriaxone 1 g IV daily, levofloxacin 500 mg IV every 24 hours, guaifenesin extended release 60 mg by mouth twice a day, Blood culture so far is negative, possible change to oral antibiotics soon for the treatment of community-acquired pneumonia Continue Solu-Medrol 40 mg IV every 8 hours, Xopenex with Atrovent nebulizer use every 6 hours while awake and every 2 hours when necessary. Hold Advair Diskus, Spiriva HandiHaler and Ventolin HFA. Acute on chronic diastolic CHF/CAD/hypertension/status post CABG 2, stable received Lasix 40 mg IV in the emergency department with good response. However renal function getting worse after increased diuretic, will hold her diuretic for now Continue amiodarone 200 mg by mouth daily, amlodipine 10 mg by mouth daily, Continue enteric-coated aspirin 81 mg by mouth daily, Follow-up renal function Continue hydralazine 100 mg by mouth 3 times a day, metoprolol succinate 75 mg by mouth at bedtime, and potassium chloride 20 mEq by mouth daily. Severe Parkinson's continue usual dosing of Sinemet CR 25/100 mg, taken 2 tablets by mouth every morning. Sinemet 25/250 one by mouth every afternoon. Continue Sinemet 25/100 one by mouth every afternoon. Hypercholesterolemia BPH Depression- GI dysmotility Seasonal allergy Constipation The above condition is stable, continue current care Vitamin D deficiency--continue cholecalciferol 2000units by mouth daily. Taper off oxygen, follow-up renal function, follow-up blood culture, follow-up PT OT, may probably discharge 1-2 days GI and DVT prophylaxis is ordered, PTOT licensed social worker consultation Continued [facility] stay due to: multiple IV medications needed Discharge planning: home
--- NOTE | 2016-07-15 10:59 | Clinical Documentation Query ---
CLINICAL DOCUMENTATION QUERY Dr. 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 Clinical Indicators: 65 yo male presenting with acute on chronic diastolic CHF and pneumonia. Initial Cr 1.4 which has trended up to Cr 1.7. Historical Cr range of 1.1-1.4 and Historical GFR range of 56.5-69.9 over the past year (when not with NAYA) Treatment: monitor PRP's, unable to administer fluids due to acute diastolic CHF, treat comorbid diseases Risk Factors: IV lasix dose then increased oral dose, DM, HTN, chronic diastolic CHF, COPD Please clarify and document your clinical opinion in the progress notes and discharge summary. Terms such as "probable", "suspected", "likely", "questionable", "possible", or "still to be ruled out" are acceptable. IF IN AGREEMENT, YOU MUST DOCUMENT ABOVE DIAGNOSTIC STATEMENT IN DAILY PROGRESS NOTES AND DISCHARGE SUMMARY. This document is not part of the patient's record. Thank You, Gisel Graham, RN [phone]
[2016-07-15] MEDS: ENOXAPARIN 40 MG/0.4 ML SYR SQ SCH (11:23)
[2016-07-15] MEDS: CARBIDOPA/LEVODOPA 25/100MG TAB PO SCH (13:31)
[2016-07-15] MEDS: VANCOMYCIN INJ 1,600 MG in SODIUM CHLORIDE 0.9% 500ML 500 ML IV SCH (13:32)
[2016-07-15] MEDS: METOPROLOL SUCC 50MG EXT REL TAB PO SCH (20:33)
[2016-07-15] MEDS: CARBIDOPA/LEVODOPA 25-250 1 EA TAB PO SCH (20:34)
[2016-07-15] MEDS: SIMVASTATIN 20 MG TAB PO SCH (20:34)
[2016-07-15] MEDS: LEVOFLOXACIN / D5W 500 MG in PREMIXED IN D5W 100 ML IV SCH (20:43)
[2016-07-15] MEDS: TAMSULOSIN HCL 0.4 MG CAP PO SCH (20:45)
[2016-07-16] VITALS (10 sets, daily range): BP systolic 122–162; BP diastolic 69–74; PULSE 61–100; TEMP 36.5–36.7; O2SAT 90–99
[2016-07-16] MEDS: METHYLPREDNISOLONE IV 40 MG in SYRINGE 0 ML IV SCH ×2 (00:25→08:41)
[2016-07-16] MEDS: IPRATROPIUM BROMIDE NEB SOLN 0.02% 2.5 ML VIAL INH SCH ×4 (01:46→19:44)
[2016-07-16] MEDS: LEVALBUTEROL 1.25MG/0.5ML NEB INH SCH ×4 (01:46→19:44)
[2016-07-16 07:32] LABS: BASO % 0.1 %; BASO ABS # 0.01 K/uL (0-0.2); COMPLETE YES; HEMATOCRIT 30.8 % (42-52); IG% 2.9 %; LYMPH % 6.7 %; LYMPH ABS # 1.15 K/uL (1.2-3.4); MEAN CELL VOLUME 83.7 fL (80-100); MEAN CORPUSCULAR HEMOGLOBIN 26.6 pg (25-34); MEAN CORPUSCULAR HGB CONC 31.8 g/dl (32-36); MONO % 6.1 %; NEUT % 84.2 %; PLATELET COUNT 314 K/uL (130-400); RED BLOOD COUNT 3.68 M/uL (4.7-6.1); WHITE BLOOD COUNT 17.23 K/uL (4.8-10.8)
[2016-07-16 08:04] LABS: CALCIUM 8.7 mg/dl (8.5-10.1); CREATININE 1.6 mg/dl (0.60-1.40); MAGNESIUM 2.3 mg/dl (1.8-2.4); POTASSIUM 4.1 mmol/L (3.5-5.1)
[2016-07-16] MEDS: CLARINEX~ORDER AWAITING ACTION SCH ×3 (08:32→23:40)
[2016-07-16] MEDS: DULOXETINE (CYMBALTA) 30 MG CAP PO SCH (08:40)
[2016-07-16] MEDS: ASPIRIN 81 MG ECTAB PO SCH (08:40)
[2016-07-16] MEDS: POTASSIUM CHLORIDE 20 MEQ TABCR PO SCH (08:40)
[2016-07-16] MEDS: POLYETHYLENE (MIRALAX) 17 GM PACK PO SCH ×2 (08:40→22:02)
[2016-07-16] MEDS: LUBIPROSTONE 8 MCG CAP PO SCH (08:40)
[2016-07-16] MEDS: AMIODARONE 200 MG TAB PO SCH (08:40)
[2016-07-16] MEDS: CARBIDOPA/LEVODOPA 25/100MG EXT REL TAB PO SCH (08:41)
[2016-07-16] MEDS: ENOXAPARIN 40 MG/0.4 ML SYR SQ SCH (08:41)
[2016-07-16] MEDS: PANTOprazole SOD 40 MG TAB PO SCH (08:41)
[2016-07-16] MEDS: CHOLECALCIFEROL 1000 INTER.UNIT TAB PO SCH (08:41)
[2016-07-16] MEDS: GUAIFENESIN 600 MG TABCR PO SCH ×2 (08:41→22:02)
[2016-07-16] MEDS: AMLODIPINE BESYLATE 5 MG TAB PO SCH (08:41)
[2016-07-16] MEDS: ACETAMINOPHEN 325 MG TAB PO PRN ×2 (08:46→16:18)
--- NOTE | 2016-07-16 09:36 | Progress Note ---
Subjective Date of Service: Jul 16, 2016. Subjective Pt evaluation today including: conversation w/ patient, physical exam, chart review, lab review, review of studies, review of inpatient medication list Voiding: no voiding problems Feeling okay but when he was talking I can hear and their wheezing, oxygen level and need for need a to keep pulse ox now No fever and chill otherwise no other complaint Problem List Medical Problems: (1) Altered mental status Status: Acute (2) Altered mental status Status: Acute (3) Congestive heart failure Status: Acute (4) Cough Status: Acute (5) Generalized weakness Status: Acute (6) Intractable pain Status: Acute (7) Leukocytosis Status: Acute (8) Low back pain Status: Acute (9) Lumbar disc disease Status: Acute (10) New onset of congestive heart failure Status: Acute (11) New onset seizure Status: Acute (12) Parkinson's disease Status: Acute (13) Parkinson's disease (tremor, stiffness, slow motion, unstableposture) Status: Acute (14) Post op infection Status: Acute (15) Right hip pain Status: Acute (16) Sciatica Status: Acute (17) Sepsis Status: Acute (18) Shaking Status: Acute (19) Shortness of breath Status: Acute Review of Systems Constitutional: + fatigue, No chills, No fever, No problem reported, No sweats , No weakness, No weight loss Eyes: No diplopia, No discharge, No eye pain, No redness, No worsening of vision ENT: No dental problems, No hearing loss, No nasal symptoms, No sore throat, No tinnitus, No trouble swallowing, No unusual epistaxis Respiratory: + cough, + shortness of breath, + wheezing, No dyspnea at rest, No dyspnea on exertion, No hemoptysis, No sputum Cardiac: + edema (trace edema), No PND, No chest pain, No claudication, No orthopnea, No palpitations Abdomen: No constipation, No diarrhea, No nausea, No pain, No vomiting Musculoskeletal: No calf pain, No joint pain, No muscle pain, No swelling Male : No dysuria, No hematuria, No incontinence, No nocturia more than once/ night, No slowing stream, No urinary frequency Neurologic: No balance problems, No memory loss, No numbness/tingling, No paralysis, No vertigo, No weakness Psychiatric: No anhedonism, No anxiety, No depression symptoms, No insomnia, No substance abuse Heme: No abnormal bleeding/bruising, No clotting problems, No night sweats, No swollen lymph nodes Endo: No excessive thirst, No excessive urination, No fatigue Skin: No bleeding, No color change, No itch, No new/changing skin lesions, No rash Objective Vital Signs Date Time Temp Pulse Resp B/P Pulse Ox O2 Delivery O2 Flow Rate FiO2 07/16/16 07:49 36.5 93 18 162/74 95 Nasal Cannula 4.0 07/16/16 07:41 65 18 99 Nasal Cannula 3.0 07/16/16 01:46 80 18 98 BiPAP/CPAP 2.0 07/16/16 00:55 CPAP 2.0 07/16/16 00:12 36.7 78 20 122/71 96 Room Air 07/15/16 23:59 95 2.0 07/15/16 20:33 84 18 99 Nasal Cannula 2.0 07/15/16 20:00 96 Room Air CPAP 07/15/16 17:22 36.6 73 20 131/74 98 Nasal Cannula 2.0 07/15/16 15:36 Nasal Cannula 2.0 Humidified Oxygen 07/15/16 14:22 84 18 99 Nasal Cannula 2.0 07/15/16 13:25 67 125/69 Physical Exam General Appearance: WD/WN, no apparent distress Eyes: normal inspection, PERRL, EOMI, sclerae normal ENT: normal ENT inspection, hearing grossly normal, pharynx normal Neck: supple, no adenopathy, thyroid normal, no JVD, no carotid bruits, trachea midline Respiratory/Chest: chest non-tender, normal breath sounds, no respiratory distress, no accessory muscle use, + decreased breath sounds, + crackles (in bilateral lower lung), + wheezing (diffuse) Cardiovascular: regular rate, rhythm, no edema, no gallop, no JVD, no murmur Abdomen: normal bowel sounds, non tender, soft, no organomegaly, no pulsatile mass Extremities: normal range of motion, non-tender, normal inspection, no pedal edema, no calf tenderness, normal capillary refill, pelvis stable 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, no motor/sensory deficits, alert, normal mood/affect, oriented x 3, + pertinent finding (resting tremor is not new) Skin: normal color, warm/dry, no rash Lymphatic: no adenopathy Laboratory Results Last 24 Hours Test 07/16/16 07:05 White Blood Count 17.23 K/uL Red Blood Count 3.68 M/uL Hemoglobin 9.8 g/dL Hematocrit 30.8 % Mean Corpuscular Volume 83.7 fL Mean Corpuscular Hemoglobin 26.6 pg Mean Corpuscular Hemoglobin Concent 31.8 g/dl Platelet Count 314 K/uL Mean Platelet Volume 9.0 fL Neutrophils (%) (Auto) 84.2 % Lymphocytes (%) (Auto) 6.7 % Monocytes (%) (Auto) 6.1 % Eosinophils (%) (Auto) 0.0 % Basophils (%) (Auto) 0.1 % Neutrophils # (Auto) 14.52 K/uL Lymphocytes # (Auto) 1.15 K/uL Monocytes # (Auto) 1.05 K/uL Eosinophils # (Auto) 0.00 K/uL Basophils # (Auto) 0.01 K/uL RDW Standard Deviation 56.3 fL RDW Coefficient of Variation 18.2 % Immature Granulocyte % (Auto) 2.9 % Immature Granulocyte # (Auto) 0.50 K/uL Sodium Level 139 mmol/L Potassium Level 4.1 mmol/L Chloride Level 103 mmol/L Carbon Dioxide Level 27 mmol/L Anion Gap 9.0 mmol/L Blood Urea Nitrogen 30 mg/dl Creatinine 1.60 mg/dl Est Creatinine Clear Calc Drug Dose 52.2 ml/min Estimated GFR () 50.9 Estimated GFR (Non- 43.9 BUN/Creatinine Ratio 19.0 Random Glucose 194 mg/dl Calcium Level 8.7 mg/dl Magnesium Level 2.3 mg/dl Assessment and Plan 65-year-old male admitted on 07/13/2016, with worsening productive cough and shortness of breath over the past few days. Per report . His reports that he was evaluated by the home health nurse today,who called the patient's PCP, who then recommended that patient come to emergency department for evaluation. He was most recently been on any from June 17 through June 23 for acute on chronic diastolic CHF, and was started on Lasix at that time. He feels his symptoms are similar now to that time as well. His has also noted him having more audible congested breath sounds. Right middle and right lower lobe pneumonia/history of MRSA stable no obvious improving, antibiotic downgrade yesterday, Solu-Medrol decrease yesterday Continue current antibiotics levofloxacin 500 mg IV every 24 hours, guaifenesin extended release 60 mg by mouth twice a day, Continue current dose of Solu-Medrol Check echo and CT of chest without contrast, because differential diagnosis include pneumonia, COPD, CHF exacerbation Blood culture so far is negative, possible change to oral antibiotics soon for the treatment of community-acquired pneumonia Sputum culture sent percent, requests to pulmonology consultation because condition not improve Acute on chronic diastolic CHF/CAD/hypertension/status post CABG 2, stable received Lasix 40 mg IV in the emergency department with good response. However renal function getting worse after increased diuretic, creatinine level is better, we'll continue hold Lasix Last echo was last year, we'll repeat echo: echo in 2016 * 1. Moderately dilated left ventricle with normal systolic function. EF 55-60% . Hypokinesis of base to mid inferior wall and mid inferolateral wall. Mild concentric left ventricular hypertrophy. Type 1 diastolic dysfunction. 2. The left atrium is mildly dilated. 3. No significant valvular abnormalities visualized. 4. Technically difficult study, enhanced with IV Definity. 5. Wall motion appears similar to 09/17/2015 study. * Continue amiodarone 200 mg by mouth daily, amlodipine 10 mg by mouth daily, Continue enteric-coated aspirin 81 mg by mouth daily, Follow-up renal function Continue hydralazine 100 mg by mouth 3 times a day, metoprolol succinate 75 mg by mouth at bedtime, and potassium chloride 20 mEq by mouth daily. Cardiology consultation if needed based on the results of echo and chest CT Severe Parkinson's continue usual dosing of Sinemet CR 25/100 mg, taken 2 tablets by mouth every morning. Sinemet 25/250 one by mouth every afternoon. Continue Sinemet 25/100 one by mouth every afternoon. Hypercholesterolemia BPH was on Bowling catheter upon admission, we'll discontinue Bowling catheter Depression- GI dysmotility Seasonal allergy Constipation The above condition is stable, continue current care Vitamin D deficiency--continue cholecalciferol 2000units by mouth daily. Was not able to Taper off oxygen, f follow-up blood culture, follow-up PT OT, PT recommend 24 7 supervision and care discharge plan will be pending patient's medical conditions GI and DVT prophylaxis is ordered, PTOT social services coordinator consultation Called to patient's and daughter, update them detail about patient's condition and care plan, Continued [facility] stay due to: multiple IV medications needed Discharge planning: home
[2016-07-16] MEDS: DOCUSATE SODIUM 100 MG CAP PO SCH ×2 (09:42→22:01)
--- NOTE | 2016-07-16 10:33 | DIAGNOSTIC IMAGING REPORT ---
CT OF THE CHEST WITHOUT IV CONTRAST CLINICAL HISTORY: Hypoxia. COMPARISON STUDY: 06/18/2016 CT DOSE: 1129.05 mGy.cm TECHNIQUE: CT of the thorax was performed from the thoracic inlet to the lung bases. Images are reviewed in the axial, sagittal, and coronal planes. IV contrast was not administered for this examination. FINDINGS: Thyroid: Imaged portions of the thyroid gland are normal in appearance. Thoracic aorta: The thoracic aorta is normal in course and caliber, noting standard 3 vessel arch anatomy. Heart: The heart is mildly enlarged with moderate coronary artery calcifications. Lungs and pleural spaces: There are no pleural effusions. There are bibasal or dependent airspace opacities. These could be atelectatic or inflammatory. There is underlying emphysema. There is mild nodularity within the superior segment of the right lower lobe. This was not present on the prior study and is therefore likely inflammatory lung parenchyma evaluation is limited due to respiratory motion artifact. Mediastinum: There is no mediastinal lymphadenopathy. Bety: There is no evidence of pathologic hilar adenopathy given the limitations of a noncontrast study. Axilla: Clear. Upper abdomen: There is a 5 cm right renal cyst. There is cholelithiasis. There is stable nodular thickening of the left adrenal gland Skeletal structures: There are no lytic or blastic osseous lesions. IMPRESSION: 1. Interval development of subcentimeter nodularity within the superior segment of the right lower lobe. This is felt to be inflammatory. 2. Interval development of bibasilar airspace opacities, inflammatory versus atelectatic. 3. Cholelithiasis 4. 5 cm right renal cyst 5. Stable nodular thickening left adrenal gland 6. Emphysema 7. Coronary artery calcifications Electronically signed by: Adrien Jean M.D. 07/16/2016 10:32 AM Dictated Date/Time: 07/16/2016 10:26 AM
[2016-07-16] MEDS: CARBIDOPA/LEVODOPA 25/100MG TAB PO SCH (12:51)
--- NOTE | 2016-07-16 14:14 | DIAGNOSTIC IMAGING REPORT ---
VIDEO SWALLOW HISTORY: Aspiration, hypoxia, right lower lobe pneumonia. TECHNIQUE: Video fluoroscopic evaluation of swallowing was performed in the AP and lateral projections by the speech pathology staff. The patient is fed nectar-thick and thin liquid barium, a barium coated wafer, and barium pudding. FLUOROSCOPY TIME: 2.1 minutes. COMPARISON STUDY: 06/20/2016 FINDINGS: No aspiration or penetration was visualized. Esophageal motility appears normal for age. IMPRESSION: 1. No evidence of aspiration or penetration. 2. Please see the speech pathologist report for detailed findings and recommendations. Electronically signed by: Adrien Jean M.D. 07/16/2016 2:13 PM Dictated Date/Time: 07/16/2016 2:12 PM
[2016-07-16] MEDS: METHYLPREDNISOLONE IV 20 MG in SYRINGE 0 ML IV SCH ×2 (16:29→23:40)
--- NOTE | 2016-07-16 16:37 | PULMONARY CONSULTATION ---
DATE OF CONSULTATION: 07/16/2016 DATE OF CONSULTATION: 07/16/2016. TIME: 3:40 p.m. HISTORY OF PRESENT ILLNESS: The patient was seen in room 455 bed 1. He is a 65-year-old male who has a history of COPD and Parkinson's disease and sleep apnea. He has had respiratory problems much of this year since the new year. In April and May he had several courses of antibiotics and prednisone. His symptoms would keep recurring. He was admitted to [facility] on June 17 and was not discharged until 06/23/2016. That admission was for an exacerbation of COPD as well as what was thought to be some coexisting congestive heart failure. He was admitted this time on 07/13/2016. He had worsening cough and worsening shortness of breath. The patient is very anxious. He also has Parkinson's disease. He does not feel that he is any better since admission. However, he admits that he was gurgling before and he is not gurgling now. The patient is a relatively poor historian. He states he is still coughing. The cough is mostly at night and first thing in the morning. Just occasionally he will bring up some brown sputum. He denies ever coughing up blood. He has not had chills, fevers or sweats. The patient does complain of chest tightness but not true chest pain. Unfortunately, the patient continues to smoke. He admits this time to only smoking 2-3 cigarettes per day. I do not know if she is reliable. At the time of the last hospital stay just a few weeks ago he reportedly was smoking half pack per day. He has smoked for a total of about 50 years and much of the time he was smoking between 1 and 2 packs per day. It is unknown if he drinks any alcohol. PAST SURGICAL HISTORY: 1. Appendectomy. 2. Coronary artery bypass graft. 3. Lumbar surgery x4. 4. Inguinal hernia x2. PAST MEDICAL HISTORY: 1. Bee sting anaphylaxis. 2. MRSA infection. 3. Parkinson's disease for 7 years. 4. Coronary artery disease. 5. Hypertension. 6. Hyperlipidemia. 7. Anxiety. ALLERGIES: BENZTROPINE, ELETRIPTAN, ROPINIROLE. The types of reactions were uncertain. FAMILY HISTORY: Father had gastric cancer and mother had some type of cancer, but he does not know where it started. She also had heart disease. MEDICATIONS AT HOME: 1. Ventolin HFA 2 puffs q.i.d. 2. Amiodarone 200 mg daily. 3. Amlodipine 10 mg daily. 4. Aspirin 81 mg daily. 5. Sinemet 25/100 two tabs in the morning, 1 in the afternoon, 1 in the evening. 6. Vitamin D3 one daily. 7. Clarinex daily. 8. Colace b.i.d. 9. Cymbalta 30 mg daily. 10. Advair 250/50 one puff b.i.d. 11. Lasix 2 tabs daily dose uncertain. 12. Hydralazine t.i.d. 13. Amitiza 8 mcg daily. 14. Metoprolol 75 mg at bedtime. 15. MiraLax b.i.d. 16. Potassium 20 mEq daily. 17. Zocor 20 mg daily. 18. Tamsulosin 0.4 mg daily. 19. Spiriva 1 daily. REVIEW OF SYSTEMS: The patient is not a good historian. His energy level is poor. He does walk with a walker. He has a lot of tremors related to his Parkinson's disease. They are almost uncontrollable at times. The patient states he has a bowel movement about every 2 days. He has urinary frequency, especially at night. This is despite wearing CPAP. The remainder of the review of systems is negative except as noted above. PHYSICAL EXAMINATION: VITAL SIGNS: The patient is a 65-year-old male who was cooperative. He had severe tremors and shaking of his hands. HEAD, EYES, EARS, NOSE, AND THROAT: Pupils were reactive. Nares were congested. Mucous was noted on the right. The patient did tell me he had a nosebleed yesterday. MOUTH EXAMINATION: Showed teeth to be in poor repair. There was moderate crowding. NECK: Palpation of the neck reveals no lymph nodes. CHEST: Normal development. He did not take deep breaths. Heart rate was 65 per minute. Blood pressure 131/69. Cardiac rhythm was regular. I did not hear extrasystoles at this time, although his EKG yesterday had shown frequent PVCs. LUNGS: Lung mcgill revealed rales posteriorly at the bases. They do not sound wet in nature. Respiratory rate was 20 breaths per minute. Saturation was 94% on room air. ABDOMEN: Soft. Bowel sounds were present. There was no tenderness to palpation or masses. EXTREMITIES: Reveal edema, mainly in the left leg in the distal tibial region. There was no cyanosis or clubbing. The patient had a video swallow done today showing no evidence of aspiration or penetration. The patient had a chest x-ray done today that showed mild right lower lung opacity, possibly representing atelectasis versus consolidation. CAT scan of the chest done today showed some bibasilar alveolar opacities that I suspect reflects atelectasis with an inability to exclude pneumonitis. There was development of a subcentimeter nodularity seen in the superior segment of the right lower lobe that was not there on a recent CAT scan done 06/18/2016 and thus was felt to be inflammatory in all likelihood. Emphysematous changes were noted. A 5 cm cyst involving the right kidney was noted. LABORATORY DATA: White count today is 17.23. Admission white count was 13.99. Hemoglobin today is 9.8. Platelets are 314,000. Electrolytes show sodium 139, potassium 4.1, chloride 103, bicarbonate 27. BUN is 30 with a creatinine of 1.6. The GFR was 43.9. ProBNP on admission was 1,030. This would be modestly elevated. Blood cultures have shown no growth. IMPRESSIONS: 1. Chronic obstructive pulmonary disease with exacerbation. 2. Atelectasis, right and left lung bases. 3. Nodular density superior segment right lower lobe -- not seen on prior scan from 06/18/2016, thus likely inflammatory. 4. Parkinson's disease. 5. Obstructive sleep apnea. COMMENTS AND RECOMMENDATIONS: The patient did not appear uncomfortable during this exam. I did not hear a lot of wheezing or rhonchi, just some rales were heard. From a pulmonary perspective, he is taking Spiriva daily. He does complain of frequent urination. I do not know if he has underlying prostate problems, but I would suspect that he does. He has been on tamsulosin. It could be that the tiotropium is causing some urinary difficulty. The patient was not able to give me a good enough history that I could tell with certainty if he was continually having trouble. Perhaps family members could give more history. He is on levofloxacin which I agree with. The patient is on amiodarone. I was not exactly certain as to why that medicine was on board. I do not think he has had amiodarone toxicity, but it would be difficult to exclude. I have no idea if he has been on this short-term and long-term. I would continue with his nebulizer treatments that he is getting every 6 hours. He is on methylprednisolone 40 mg IV q. 8 hours. I believe that could be decreased to perhaps 20 mg IV q. 8 hours. As noted, the patient is difficult to assess. He also seemed to get very nervous during my exam. Generally, he seems comfortable. Perhaps physical therapy consult to assist with ambulation would be a good idea. He certainly has remained good with his oxygenation. Although the patient does not state that he is feeling any better he does not seem to be in any distress at present. It could be that the patient is not the best historian even from a pulmonary perspective. Thank you for asking me to assist in his care.
[2016-07-16] MEDS: CARBIDOPA/LEVODOPA 25-250 1 EA TAB PO SCH (22:02)
[2016-07-16] MEDS: METOPROLOL SUCC 50MG EXT REL TAB PO SCH (22:03)
[2016-07-16] MEDS: TAMSULOSIN HCL 0.4 MG CAP PO SCH (22:03)
[2016-07-16] MEDS: SIMVASTATIN 20 MG TAB PO SCH (22:03)
[2016-07-16] MEDS: LEVOFLOXACIN / D5W 500 MG in PREMIXED IN D5W 100 ML IV SCH (22:09)
[2016-07-17] VITALS (9 sets, daily range): BP systolic 136–179; BP diastolic 72–76; PULSE 64–76; TEMP 36.4–36.6; O2SAT 93–99
[2016-07-17] MEDS ORDERED: VANCOMYCIN TROUGH SCH (01:30)
[2016-07-17] MEDS: LEVALBUTEROL 1.25MG/0.5ML NEB INH SCH ×4 (02:01→19:27)
[2016-07-17] MEDS: CLARINEX~ORDER AWAITING ACTION SCH ×3 (07:56→23:31)
[2016-07-17] MEDS: ASPIRIN 81 MG ECTAB PO SCH (08:03)
[2016-07-17] MEDS: METHYLPREDNISOLONE IV 20 MG in SYRINGE 0 ML IV SCH ×2 (08:03→16:03)
[2016-07-17] MEDS: DOCUSATE SODIUM 100 MG CAP PO SCH ×2 (08:03→21:27)
[2016-07-17] MEDS: LUBIPROSTONE 8 MCG CAP PO SCH (08:03)
[2016-07-17] MEDS: AMIODARONE 200 MG TAB PO SCH (08:03)
[2016-07-17] MEDS: DULOXETINE (CYMBALTA) 30 MG CAP PO SCH (08:03)
[2016-07-17] MEDS: TIOTROPIUM BROMIDE 5 PUFF/90 MCG INH INH SCH (08:03)
[2016-07-17] MEDS: AMLODIPINE BESYLATE 5 MG TAB PO SCH (08:04)
[2016-07-17] MEDS: PANTOprazole SOD 40 MG TAB PO SCH (08:04)
[2016-07-17] MEDS: ENOXAPARIN 40 MG/0.4 ML SYR SQ SCH (08:04)
[2016-07-17] MEDS: CARBIDOPA/LEVODOPA 25/100MG EXT REL TAB PO SCH (08:04)
[2016-07-17] MEDS: CHOLECALCIFEROL 1000 INTER.UNIT TAB PO SCH (08:04)
[2016-07-17] MEDS: POLYETHYLENE (MIRALAX) 17 GM PACK PO SCH ×2 (08:04→21:26)
[2016-07-17] MEDS: POTASSIUM CHLORIDE 20 MEQ TABCR PO SCH (08:04)
[2016-07-17] MEDS: GUAIFENESIN 600 MG TABCR PO SCH ×2 (08:04→21:28)
[2016-07-17] MEDS: ACETAMINOPHEN 325 MG TAB PO PRN (08:05)
--- NOTE | 2016-07-17 10:53 | Progress Note ---
Subjective Date of Service: Jul 17, 2016. Subjective Pt evaluation today including: conversation w/ patient, conversation w/ family , physical exam, chart review, lab review, review of studies, review of inpatient medication list Voiding: no voiding problems Feeding better, off NC O2, less wheezing after breathing treatment, up and walk to the restroom with help, less cough Problem List Medical Problems: (1) Altered mental status Status: Acute (2) Altered mental status Status: Acute (3) Congestive heart failure Status: Acute (4) Cough Status: Acute (5) Generalized weakness Status: Acute (6) Intractable pain Status: Acute (7) Leukocytosis Status: Acute (8) Low back pain Status: Acute (9) Lumbar disc disease Status: Acute (10) New onset of congestive heart failure Status: Acute (11) New onset seizure Status: Acute (12) Parkinson's disease Status: Acute (13) Parkinson's disease (tremor, stiffness, slow motion, unstableposture) Status: Acute (14) Post op infection Status: Acute (15) Right hip pain Status: Acute (16) Sciatica Status: Acute (17) Sepsis Status: Acute (18) Shaking Status: Acute (19) Shortness of breath Status: Acute Review of Systems Constitutional: + fatigue, No chills, No fever, No problem reported, No sweats , No weakness, No weight loss Eyes: No diplopia, No discharge, No eye pain, No redness, No worsening of vision ENT: No dental problems, No hearing loss, No nasal symptoms, No sore throat, No tinnitus, No trouble swallowing, No unusual epistaxis Respiratory: No cough, No dyspnea at rest, No dyspnea on exertion, No hemoptysis, No shortness of breath, No sputum, No wheezing Cardiac: No PND, No chest pain, No claudication, No edema, No orthopnea, No palpitations Abdomen: No constipation, No diarrhea, No nausea, No pain, No vomiting Musculoskeletal: No calf pain, No joint pain, No muscle pain, No swelling Male : No dysuria, No hematuria, No incontinence, No nocturia more than once/ night, No slowing stream, No urinary frequency Neurologic: + problem reported (resting tremor is not new), No balance problems , No memory loss, No numbness/tingling, No paralysis, No vertigo, No weakness Psychiatric: No anhedonism, No anxiety, No depression symptoms, No insomnia, No substance abuse Heme: No abnormal bleeding/bruising, No clotting problems, No night sweats, No swollen lymph nodes Endo: No excessive thirst, No excessive urination, No fatigue Skin: No bleeding, No color change, No itch, No new/changing skin lesions, No rash Objective Vital Signs Date Time Temp Pulse Resp B/P Pulse Ox O2 Delivery O2 Flow Rate FiO2 07/17/16 08:15 71 12 96 Room Air 07/17/16 08:00 Room Air 07/17/16 07:18 36.6 75 16 179/75 93 Room Air 07/17/16 02:02 67 97 2.0 07/17/16 02:02 67 18 97 BiPAP/CPAP 2.0 07/17/16 01:30 94 Room Air 07/16/16 23:48 36.7 100 20 138/70 90 Room Air 07/16/16 19:44 74 18 95 Room Air 07/16/16 16:00 94 Room Air 07/16/16 15:20 36.7 65 20 131/69 94 Room Air 07/16/16 14:32 61 18 96 Room Air 07/16/16 13:55 95 Physical Exam General Appearance: WD/WN, no apparent distress, + pertinent finding (look chronically ill, older than his age) Eyes: normal inspection, PERRL, EOMI, sclerae normal ENT: normal ENT inspection, hearing grossly normal, pharynx normal Neck: supple, no adenopathy, thyroid normal, no JVD, no carotid bruits, trachea midline Respiratory/Chest: chest non-tender, normal breath sounds, no respiratory distress, no accessory muscle use, + decreased breath sounds, + wheezing (is much less ) Cardiovascular: regular rate, rhythm, no edema, no gallop, no JVD, no murmur Abdomen: normal bowel sounds, non tender, soft, no organomegaly, no pulsatile mass Extremities: normal range of motion, non-tender, normal inspection, no pedal edema, no calf tenderness, normal capillary refill, pelvis stable, + swelling ( trace to 1 edema) Neurologic/Psychiatric: emergency specialist II-XII nml as tested, no motor/sensory deficits, alert, normal mood/affect, oriented x 3 Skin: normal color, warm/dry, no rash Lymphatic: no adenopathy Assessment and Plan 65-year-old male admitted on 07/13/2016, with worsening productive cough and shortness of breath over the past few days. Per report . His reports that he was evaluated by the home health nurse today,who called the patient's PCP, who then recommended that patient come to emergency department for evaluation. He was most recently been on any from June 17 through June 23 for acute on chronic diastolic CHF, and was started on Lasix at that time. He feels his symptoms are similar now to that time as well. His has also noted him having more audible congested breath sounds. Likely pneumonia in the right lower lung and COPD exacerbation, Chest CT no us no obvious infiltration on 07/16/2016 Has been on IV antibiotics on Levaquin, we'll change to by mouth Continue current guaifenesin extended release 60 mg by mouth twice a day, Continue current dose of Solu-Medrol, planning to change to oral prednisone tomorrow upon discharge Home Symbicort was started echo was ordered is pending Blood culture so far is negative, Sputum culture sent percent, requests to pulmonology consultation because condition not improve Nebulizer treatment seems significantly improved patient's wheezing, combined the above medical condition with likely most likely diagnosis COPD exacerbation , I ordered nebulizer machine to home upon discharge Currently patient able to be off nasal cannula oxygen, has ordered 2 step exercise test to assess home oxygen need Chest CT on July 16 2016: 1. Interval development of subcentimeter nodularity within the superior segment of the right lower lobe. This is felt to be inflammatory. 2. Interval development of bibasilar airspace opacities, inflammatory versus atelectatic. 3. Cholelithiasis 4. 5 cm right renal cyst 5. Stable nodular thickening left adrenal gland 6. Emphysema 7. Coronary artery calcifications Has discussed the CT results with patient, and family, recommend to continue follow-up with PCP for the above abnormal results Acute on chronic diastolic CHF/CAD/hypertension/status post CABG 2, stable received Lasix 40 mg IV in the emergency department with good response. However renal function getting worse after increased diuretic, creatinine level is better, we'll continue hold Lasix Last echo was last year, we'll repeat echo: echo in 2016 * 1. Moderately dilated left ventricle with normal systolic function. EF 55-60% . Hypokinesis of base to mid inferior wall and mid inferolateral wall. Mild concentric left ventricular hypertrophy. Type 1 diastolic dysfunction. 2. The left atrium is mildly dilated. 3. No significant valvular abnormalities visualized. 4. Technically difficult study, enhanced with IV Definity. 5. Wall motion appears similar to 09/17/2015 study. * Continue amiodarone 200 mg by mouth daily, amlodipine 10 mg by mouth daily, Continue enteric-coated aspirin 81 mg by mouth daily, Follow-up renal function , which is improved today creatinine 1.6 from 1.7 yesterday Continue hydralazine 100 mg by mouth 3 times a day, metoprolol succinate 75 mg by mouth at bedtime, and potassium chloride 20 mEq by mouth daily. Cardiology consultation if needed based on the results of echo Severe Parkinson's continue usual dosing of Sinemet CR 25/100 mg, taken 2 tablets by mouth every morning. Sinemet 25/250 one by mouth every afternoon. Continue Sinemet 25/100 one by mouth every afternoon. Hypercholesterolemia BPH was on Bowling catheter upon admission, we'll discontinue Bowling catheter Depression- GI dysmotility Seasonal allergy Constipation The above condition is stable, continue current care Vitamin D deficiency--continue cholecalciferol 2000units by mouth daily. follow-up blood culture, follow-up PT OT, PT recommend supervision and care discharge plan, discussed with patient about her discharge plan, he wanted to go home, he declined to go to the rehabilitation, he said he has been them any time, he want to take all risks by himself GI and DVT prophylaxis is ordered, PTOT social work nurse consultation Called to patient's and daughter, update them detail about patient's condition and care plan, Prescription of nebulizer machine to the nursing station Continued [facility] stay due to: multiple IV medications needed Discharge planning: home
[2016-07-17] MEDS: CARBIDOPA/LEVODOPA 25/100MG TAB PO SCH (13:25)
--- NOTE | 2016-07-17 16:09 | PULMONARY PROGRESS NOTE ---
DATE: 07/17/2016 TIME: 3:45 p.m. SUBJECTIVE: The patient still complains of shortness of breath and cough. He has been weak. Nursing staff informs me that the patient was walked yesterday part way around the hallway and became very fatigued and short of breath and had to stop. I believe they had to wheel him back. The patient has been adamantly refusing to go to rehab. He states he has been at [facility] twice before and does not want to go back. He has had no episodes of acute distress today. His oxygen levels have been good. OBJECTIVE: GENERAL: The patient is in no distress. He does start with a lot of jerky arm movements, especially when he is anxious. He did this quite a bit during the exam. This appears to be part of his Parkinson disease. EARS, NOSE, THROAT: Exam is unchanged from prior. HEART: Rate is 64 per minute. The rhythm was regular. Blood pressure 136/72. CHEST: Respiratory rate was 20 breaths per minute. The breath sounds were mildly decreased. Very few rales and mild rhonchi were heard. Saturation reportedly is 99% on room air. EXTREMITIES: Revealed +1 edema bilaterally. He does have support stockings on today. LABORATORY DATA: The patient did not have any lab studies today. IMPRESSIONS: 1. Chronic obstructive pulmonary disease with exacerbation. 2. Atelectasis, right and left lung bases. 3. Nodular density, superior segment right lower lobe - likely due to infection as it was not seen on a prior scan done 06/18/2016. 4. Parkinson disease. 5. Obstructive sleep apnea. COMMENTS AND RECOMMENDATIONS: The patient seemingly would be a good candidate for rehabilitation based upon both his breathing problems and has Parkinson disease. Nonetheless, he is not interested. I think the steroids could be changed to oral. I would continue with the nebulizer treatments. The patient is still on levofloxacin. He should have approximately a 7-day total treatment course. The patient's smoking remains a problem. I do not think he is committed to quitting smoking. We will check a blood gas status in the morning to see if his carbon dioxide levels are elevated or not. He does not have oxygen at home and he should have a 2 step. MTDD
[2016-07-17] MEDS: LEVOFLOXACIN 500 MG TAB PO SCH (18:28)
[2016-07-17] MEDS: CARBIDOPA/LEVODOPA 25-250 1 EA TAB PO SCH (21:28)
[2016-07-17] MEDS: SIMVASTATIN 20 MG TAB PO SCH (21:28)
[2016-07-17] MEDS: TAMSULOSIN HCL 0.4 MG CAP PO SCH (21:29)
[2016-07-17] MEDS: METOPROLOL SUCC 50MG EXT REL TAB PO SCH (21:29)
[2016-07-18] VITALS (13 sets, daily range): BP systolic 105–148; BP diastolic 57–77; PULSE 62–111; TEMP 36.5–36.8; O2SAT 91–97
[2016-07-18] MEDS: LEVALBUTEROL 1.25MG/0.5ML NEB INH SCH ×4 (01:39→19:14)
[2016-07-18] MEDS: CLARINEX~ORDER AWAITING ACTION SCH ×3 (07:11→23:48)
[2016-07-18 08:20] LABS: ARTERIAL BLD GAS O2 SATURATION 92.3 % (90-95); ARTERIAL BLOOD GAS BASE EXCESS 6.2 mEq/L (-9-1.8); ARTERIAL BLOOD GAS HCO3 31 mmol/L (19-24); ARTERIAL BLOOD GAS PO2 66 mm/Hg (80-95); ARTERIAL BLOOD GAS pH 7.45 (7.35-7.45)
[2016-07-18 08:23] LABS: ALLEN TEST POS (POS); O2 ADMINISTRATION ROOM AIR
[2016-07-18] MEDS: POLYETHYLENE (MIRALAX) 17 GM PACK PO SCH ×2 (08:35→21:07)
[2016-07-18] MEDS: TIOTROPIUM BROMIDE 5 PUFF/90 MCG INH INH SCH (08:37)
[2016-07-18] MEDS: LUBIPROSTONE 8 MCG CAP PO SCH (08:37)
[2016-07-18] MEDS: POTASSIUM CHLORIDE 20 MEQ TABCR PO SCH (08:38)
[2016-07-18] MEDS: ASPIRIN 81 MG ECTAB PO SCH (08:38)
[2016-07-18] MEDS: DOCUSATE SODIUM 100 MG CAP PO SCH ×2 (08:38→21:07)
[2016-07-18] MEDS: DULOXETINE (CYMBALTA) 30 MG CAP PO SCH (08:38)
[2016-07-18] MEDS: AMIODARONE 200 MG TAB PO SCH (08:38)
[2016-07-18] MEDS: PANTOprazole SOD 40 MG TAB PO SCH (08:39)
[2016-07-18] MEDS: AMLODIPINE BESYLATE 5 MG TAB PO SCH (08:39)
[2016-07-18] MEDS: FUROSEMIDE 20 MG TAB PO SCH (08:39)
[2016-07-18] MEDS: ACETAMINOPHEN 325 MG TAB PO PRN ×2 (08:39→13:19)
[2016-07-18] MEDS: CHOLECALCIFEROL 1000 INTER.UNIT TAB PO SCH (08:40)
[2016-07-18] MEDS: GUAIFENESIN 600 MG TABCR PO SCH ×2 (08:40→21:09)
[2016-07-18] MEDS: CARBIDOPA/LEVODOPA 25/100MG EXT REL TAB PO SCH (08:40)
[2016-07-18] MEDS: ENOXAPARIN 40 MG/0.4 ML SYR SQ SCH (08:40)
--- NOTE | 2016-07-18 10:45 | Progress Note ---
Subjective Date of Service: Jul 18, 2016. Subjective Pt evaluation today including: conversation w/ patient, physical exam, chart review, lab review, review of studies, conversation w/ siebel consultant, review of inpatient medication list was able to be off NC o2, 2 step exercise done not need O2 when walk, feeling dizziness, cold sweating while up to rest room, feel weak, had breakfast this am, reported has same episode like this before, getting better after more sitting in comods, 1-2 min and was able to be back to bed with help and walker . Problem List Medical Problems: (1) Altered mental status Status: Acute (2) Altered mental status Status: Acute (3) Congestive heart failure Status: Acute (4) Cough Status: Acute (5) Generalized weakness Status: Acute (6) Intractable pain Status: Acute (7) Leukocytosis Status: Acute (8) Low back pain Status: Acute (9) Lumbar disc disease Status: Acute (10) New onset of congestive heart failure Status: Acute (11) New onset seizure Status: Acute (12) Parkinson's disease Status: Acute (13) Parkinson's disease (tremor, stiffness, slow motion, unstableposture) Status: Acute (14) Post op infection Status: Acute (15) Right hip pain Status: Acute (16) Sciatica Status: Acute (17) Sepsis Status: Acute (18) Shaking Status: Acute (19) Shortness of breath Status: Acute Review of Systems Constitutional: + fatigue, + sweats, No chills, No fever, No problem reported, No weakness, No weight loss Eyes: No diplopia, No discharge, No eye pain, No redness, No worsening of vision ENT: No dental problems, No hearing loss, No nasal symptoms, No sore throat, No tinnitus, No trouble swallowing, No unusual epistaxis Respiratory: No cough, No dyspnea at rest, No dyspnea on exertion, No hemoptysis, No shortness of breath, No sputum, No wheezing Cardiac: No PND, No chest pain, No claudication, No edema, No orthopnea, No palpitations Abdomen: No constipation, No diarrhea, No nausea, No pain, No vomiting Musculoskeletal: No calf pain, No joint pain, No muscle pain, No swelling Male : No dysuria, No hematuria, No incontinence, No nocturia more than once/ night, No slowing stream, No urinary frequency Neurologic: No balance problems, No memory loss, No numbness/tingling, No paralysis, No vertigo, No weakness Psychiatric: No anhedonism, No anxiety, No depression symptoms, No insomnia, No substance abuse Heme: No abnormal bleeding/bruising, No clotting problems, No night sweats, No swollen lymph nodes Endo: No excessive thirst, No excessive urination, No fatigue Skin: No bleeding, No color change, No itch, No new/changing skin lesions, No rash Objective Vital Signs Date Time Temp Pulse Resp B/P Pulse Ox O2 Delivery O2 Flow Rate FiO2 07/18/16 08:00 Room Air 07/18/16 07:43 36.5 66 19 148/77 94 Room Air 07/18/16 07:18 67 18 96 Room Air 07/18/16 01:39 72 12 95 BiPAP/CPAP 07/18/16 01:39 95 07/18/16 00:32 36.8 111 18 145/68 91 Room Air 07/18/16 00:00 96 Room Air 07/17/16 21:25 76 162/76 07/17/16 19:27 72 12 96 Room Air 07/17/16 15:50 99 Room Air 07/17/16 15:06 36.4 64 19 136/72 99 Room Air 07/17/16 14:47 71 12 96 Room Air Physical Exam General Appearance: WD/WN, no apparent distress, + obese Eyes: normal inspection, PERRL, EOMI, sclerae normal ENT: normal ENT inspection, hearing grossly normal, pharynx normal Neck: supple, no adenopathy, thyroid normal, no JVD, no carotid bruits, trachea midline Respiratory/Chest: chest non-tender, lungs clear, normal breath sounds, no respiratory distress, no accessory muscle use Cardiovascular: regular rate, rhythm, no edema, no gallop, no JVD, no murmur Abdomen: normal bowel sounds, non tender, soft, no organomegaly, no pulsatile mass Extremities: normal range of motion, non-tender, normal inspection, no pedal edema, no calf tenderness, normal capillary refill, pelvis stable Neurologic/Psychiatric: optomechanical technician II-XII nml as tested, no motor/sensory deficits, alert, normal mood/affect, oriented x 3, + pertinent finding (resting tremor) Skin: normal color, warm/dry, no rash Lymphatic: no adenopathy Laboratory Results Last 24 Hours Test 07/18/16 08:00 Arterial Blood pH 7.45 Arterial Blood Partial Pressure CO2 46 mmHg Arterial Blood Partial Pressure O2 66 mm/Hg Arterial Blood HCO3 31 mmol/L Arterial Blood Oxygen Saturation 92.3 % Arterial Blood Base Excess 6.2 mEq/L Arterial Blood Gas Delivery ROOM AIR Carlos Manuel Test POS Assessment and Plan 65-year-old male admitted on 07/13/2016admitted because of pna with worsening productive cough and shortness of breath over the past few days. Per report . His reports that he was evaluated by the home health nurse today,who called the patient's PCP, who then recommended that patient come to emergency department for evaluation. He was most recently been on any from June 17 through June 23 for acute on chronic diastolic CHF, and was started on Lasix at that time. He feels his symptoms are similar now to that time as well. His has also noted him having more audible congested breath sounds. Likely pneumonia in the right lower lung and COPD exacerbation, Chest CT no us no obvious infiltration on 07/16/2016 Has been on IV antibiotics on Levaquin, which was changed to by mouth Continue current guaifenesin extended release 60 mg by mouth twice a day, switch Solu-Medrol, planning to oral prednisone today upon discharge Home Symbicort was started echo was done Blood culture so far is negative, Sputum culture sent percent, requests to pulmonology consultation because condition not improve Nebulizer treatment seems significantly improved patient's wheezing, combined the above medical condition with likely most likely diagnosis COPD exacerbation , I ordered nebulizer machine to home upon discharge able to be off nasal cannula oxygen, do not need O2 while walk per [address] test [address] CT on July 16 2016: 1. Interval development of subcentimeter nodularity within the superior segment of the right lower lobe. This is felt to be inflammatory. 2. Interval development of bibasilar airspace opacities, inflammatory versus atelectatic. 3. Cholelithiasis 4. 5 cm right renal cyst 5. Stable nodular thickening left adrenal gland 6. Emphysema 7. Coronary artery calcifications Has discussed the CT results with patient, and family, recommend to continue follow-up with PCP for the above abnormal results Acute on chronic diastolic CHF/CAD/hypertension/status post CABG 2, stable received Lasix 40 mg IV in the emergency department with good response. However renal function getting worse after increased diuretic, creatinine level is better, we'll continue hold Lasix Last echo was last year, repeat echo: echo in 2016 * 1. Moderately dilated left ventricle with normal systolic function. EF 55-60% . Hypokinesis of base to mid inferior wall and mid inferolateral wall. Mild concentric left ventricular hypertrophy. Type 1 diastolic dysfunction. 2. The left atrium is mildly dilated. 3. No significant valvular abnormalities visualized. 4. Technically difficult study, enhanced with IV Definity. 5. Wall motion appears similar to 09/17/2015 study. * Continue amiodarone 200 mg by mouth daily, amlodipine 10 mg by mouth daily, Continue enteric-coated aspirin 81 mg by mouth daily, Continue hydralazine 100 mg by mouth 3 times a day, metoprolol succinate 75 mg by mouth at bedtime, and potassium chloride 20 mEq by mouth daily. Cardiology consultation if needed based on the results of echo Severe Parkinson's, stable continue usual dosing of Sinemet CR 25/100 mg, taken 2 tablets by mouth every morning. Sinemet 25/250 one by mouth every afternoon. Continue Sinemet 25/100 one by mouth every afternoon. episode of dizziness with cold sweat, possible from acroneuropathy from PD, or hypoglycemia (this is less likely b/c patient had breakfast) Hypercholesterolemia BPH was on Bowling catheter upon admission, we'll discontinue Bowling catheter Depression- GI dysmotility Seasonal allergy Constipation The above condition is stable, continue current care Vitamin D deficiency--continue cholecalciferol 2000units by mouth daily. PT OT, PT recommend 24/ 7 supervision and care with the new episode of dizziness/cold sweat, I told pt need to reconsider ECF , rehab, I called to , not message left. has asked RN to update cm GI and DVT prophylaxis is ordered, PTOT social media strategist consultation Continued [facility] stay due to: multiple IV medications needed Discharge planning: home
--- NOTE | 2016-07-18 12:58 | PULMONARY PROGRESS NOTE ---
DATE: 07/18/2016 TIME: 12:35 p.m. SUBJECTIVE: The patient is not having a good day. He has been feeling weak and somewhat lightheaded. He says that he is short of breath and has been coughing a lot. Nursing staff tells me they have not heard any significant coughing. He was ambulated earlier today for a 2 step. He could not walk very far. His saturations did not drop; however. He was simply very weak and fatigued. OBJECTIVE: The patient seems anxious. He did not appear dyspneic. His temperature was 36.5. The patient continues to have flapping of his arms which may be part of his Parkinson disease and likely has worsened with anxiety. His heart rate is 66 beats per minute. Blood pressure is 148/77. The respiratory rate is 20 breaths per minute. Lung mcgill revealed just a few scattered rales posteriorly. Good breath sounds are heard. Oxygen saturation was 94% on room air. The abdomen remains obese. It was soft and nontender. DATA: Blood gas done this morning on room air showed a pH of 7.45 with a pCO2 of 46 and a pO2 of 66. It appears there has been no other lab work done today. IMPRESSIONS: 1. Chronic obstructive pulmonary disease with exacerbation. 2. Atelectasis, right and left lung bases. 3. Small area of nodularity, superior segment right lower lobe likely infection as the source as it was not seen on prior scan, 06/18/2016. 4. Parkinson disease. 5. Obstructive sleep apnea. COMMENTS AND RECOMMENDATIONS: The patient feels weak and just does not feel well today. Would suggest rechecking his metabolic profile. Will also recheck a CBC as his prior white count had been climbing. Reportedly, the patient may consider going to a custodial. He is now on prednisone rather than the methylprednisolone. I do not hear any additional wheezing since that change was made. He has had urinary incontinence and difficulty holding his urine. I am going to stop the Tiotropium, which may be contributing to urinary symptoms in a male of his age. He has been getting levalbuterol every 6 hours. We will add ipratropium to that in light of the fact he is no longer going to get the Tiotropium. MTDD
[2016-07-18] MEDS: CARBIDOPA/LEVODOPA 25/100MG TAB PO SCH (13:19)
[2016-07-18] MEDS: IPRATROPIUM BROMIDE NEB SOLN 0.02% 2.5 ML VIAL INH SCH ×2 (14:16→19:14)
[2016-07-18] MEDS ORDERED: LEVALBUTEROL/IPRATROPIUM NEB INH SCH (15:00)
--- NOTE | 2016-07-18 17:26 | ECHOCARDIOGRAM REPORT ---
*NOTICE TO RECEIVING DEMOCRAT AGENCY This information is strictly Confidential and protected under [place] law. [place] law prohibits you from making any further disclosure of this information unless further disclosure is expressly permitted by the written consent of the person to whom it pertains or is authorized by law. A general authorization for the release of medical or other information is not sufficient for this purpose. Hospital accepts no responsibility if the information is made available to any other person, INCLUDING THE PATIENT. Interpretation Summary * Name: KAILYN JORDAN Study Date: 07/18/2016 03:41 PM BP: 107/66 mmHg * Patient Location: [id number] HR: 66 * : 1950 (M/d/yyyy) Gender: Male Height: 70 in * Age: 65 yrs Ethnicity: CA Weight: 212 lb * Ordering Physician: Mayur Leon * Referring Physician: Fox Shelton * Performed By: Jaye Cuellar RDCS * * Reason For Study: CHF * BSA: 2.1 m2 * -- Conclusions -- * The left ventricle is moderately dilated. * Left ventricular systolic function is low normal. * Diastolic function appears normal * There are regional wall motion abnormalities as specified. * Poor endocardial definition. * Inferior wall is echodense and moderately hypokinetic from base to mid-ventricle * The left atrium is mildly dilated. * Right ventricular systolic pressure is normal. * Compared to a study from 12/2015, there is little change Procedure Details * A complete two-dimensional transthoracic echocardiogram was performed (2D, M-mode, Doppler and color flow Doppler). Left Ventricle * The left ventricle is moderately dilated. * There is borderline concentric left ventricular hypertrophy. * Ejection Fraction = 55-60%. * Left ventricular systolic function is low normal. * Diastolic function appears normal * There are regional wall motion abnormalities as specified. * Poor endocardial definition. Inferior wall is echodense and moderately hypokinetic from base to mid-ventricle Right Ventricle * The right ventricle is grossly normal size. * The right ventricular systolic function is normal. Atria * The left atrium is mildly dilated. * Right atrial size is normal. * Lipomatous hypertrophy of the interatrial septum is noted. Mitral Valve * The mitral valve leaflets appear thickened, but open well. * Significant mitral regurgitation is absent. Tricuspid Valve * The tricuspid valve is not well visualized, but is grossly normal. * There is mild tricuspid regurgitation. * Right ventricular systolic pressure is normal. Aortic Valve * The aortic valve is not well visualized. * No hemodynamically significant valvular aortic stenosis. * There is no significant aortic regurgitation. Great Vessels * The aortic root is normal size. Pericardium/Pleural * There is no pericardial effusion. MMode 2D Measurements and Calculations IVSd 1.0 cm LVIDd 6.3 cm LVIDs 4.9 cm LVPWd 1.2 cm IVS/LVPW 0.87 FS 21.8 % EDV(Teich) 201.9 ml ESV(Teich) 114.8 ml EF(Teich) 43.2 % EDV(cubed) 251.2 ml ESV(cubed) 120.3 ml EF(cubed) 52.1 % LV mass(C)d 303.2 grams LV mass(C)dI 141.7 grams/m\S\2 SV(Teich) 87.1 ml SI(Teich) 40.7 ml/m\S\2 SV(cubed) 130.9 ml SI(cubed) 61.2 ml/m\S\2 Ao root diam 3.1 cm Ao root area 7.4 cm\S\2 ACS 2.1 cm LA dimension 4.3 cm asc Aorta Diam 3.5 cm LA/Ao 1.4 LVOT diam 2.0 cm LVOT area 3.3 cm\S\2 LVAd ap4 35.6 cm\S\2 LVLd ap4 8.0 cm EDV(MOD-sp4) 126.7 ml EDV(sp4-el) 134.0 ml LVAs ap4 24.5 cm\S\2 LVLs ap4 7.0 cm ESV(MOD-sp4) 70.6 ml ESV(sp4-el) 73.0 ml EF(MOD-sp4) 44.2 % EF(sp4-el) 45.5 % LVAd ap2 35.0 cm\S\2 LVLd ap2 8.5 cm EDV(MOD-sp2) 118.0 ml EDV(sp2-el) 121.9 ml LVAs ap2 23.9 cm\S\2 LVLs ap2 7.5 cm ESV(MOD-sp2) 64.7 ml ESV(sp2-el) 64.2 ml EF(MOD-sp2) 45.1 % EF(sp2-el) 47.3 % LVLd %diff 5.9 % EDV(MOD-bp) 123.1 ml LVLs %diff 7.5 % ESV(MOD-bp) 68.3 ml EF(MOD-bp) 44.5 % SV(MOD-sp4) 56.0 ml SI(MOD-sp4) 26.2 ml/m\S\2 SV(MOD-sp2) 53.3 ml SI(MOD-sp2) 24.9 ml/m\S\2 SV(MOD-bp) 54.8 ml SI(MOD-bp) 25.6 ml/m\S\2 SV(sp4-el) 61.0 ml SI(sp4-el) 28.5 ml/m\S\2 SV(sp2-el) 57.7 ml SI(sp2-el) 27.0 ml/m\S\2 Doppler Measurements and Calculations MV E max bernice 88.8 cm/sec MV A max bernice 97.5 cm/sec MV E/A 0.91 MV dec time 0.18 sec Ao V2 max 156.1 cm/sec Ao max PG 9.7 mmHg Ao max PG (full) 4.9 mmHg RODERICK(V,A) 2.3 cm\S\2 RODERICK(V,D) 2.3 cm\S\2 LV V1 max PG 4.8 mmHg LV V1 max 109.6 cm/sec PA V2 max 152.0 cm/sec PA max PG 9.2 mmHg PA acc slope 621.8 cm/sec\S\2 PA acc time 0.13 sec TR max bernice 213.3 cm/sec PA pr(Accel) 20.4 mmHg
[2016-07-18] MEDS: LEVOFLOXACIN 500 MG TAB PO SCH (19:42)
[2016-07-18] MEDS: SIMVASTATIN 20 MG TAB PO SCH (21:09)
[2016-07-18] MEDS: CARBIDOPA/LEVODOPA 25-250 1 EA TAB PO SCH (21:09)
[2016-07-18] MEDS: TAMSULOSIN HCL 0.4 MG CAP PO SCH (21:10)
[2016-07-18] MEDS: METOPROLOL SUCC 50MG EXT REL TAB PO SCH (21:11)
[2016-07-19] VITALS: PULSE 75; O2SAT 96
[2016-07-19 01:46] VITALS: PULSE 67; O2SAT 97
[2016-07-19] MEDS: LEVALBUTEROL 1.25MG/0.5ML NEB INH SCH ×2 (01:46→07:33)
[2016-07-19] MEDS: IPRATROPIUM BROMIDE NEB SOLN 0.02% 2.5 ML VIAL INH SCH ×2 (01:46→07:33)
[2016-07-19 01:47] VITALS: PULSE 67; O2SAT 97
[2016-07-19] MEDS: ACETAMINOPHEN 325 MG TAB PO PRN (05:28)
[2016-07-19 07:33] VITALS: PULSE 66; O2SAT 96
[2016-07-19 07:48] LABS: MEAN CELL VOLUME 83.1 fL (80-100); MEAN CORPUSCULAR HEMOGLOBIN 26.2 pg (25-34); MEAN CORPUSCULAR HGB CONC 31.6 g/dl (32-36); PLATELET COUNT 319 K/uL (130-400); RED BLOOD COUNT 3.85 M/uL (4.7-6.1); WHITE BLOOD COUNT 21.21 K/uL (4.8-10.8)
[2016-07-19] MEDS: CLARINEX~ORDER AWAITING ACTION SCH (08:00)
[2016-07-19 08:11] LABS: ANISOCYTOSIS PRESENT; COMPLETE YES; LYMPH ABS # 4.09 K/uL (1.2-3.4); LYMPHOCYTE % 19.3 %; MYELOCYTE % 5.3 %
[2016-07-19 08:16] LABS: BUN/CREATININE RATIO 23.9 (10-20); CALCIUM 8.5 mg/dl (8.5-10.1); CREATININE 1.3 mg/dl (0.60-1.40); MAGNESIUM 2.2 mg/dl (1.8-2.4)
[2016-07-19 08:18] VITALS: BP 150/77; PULSE 18; PULSE 63; TEMP 36.7; O2SAT 94
[2016-07-19] MEDS: GUAIFENESIN 600 MG TABCR PO SCH (08:50)
[2016-07-19] MEDS: ASPIRIN 81 MG ECTAB PO SCH (08:50)
[2016-07-19] MEDS: AMLODIPINE BESYLATE 5 MG TAB PO SCH (08:50)
[2016-07-19] MEDS: DOCUSATE SODIUM 100 MG CAP PO SCH (08:50)
[2016-07-19] MEDS: CARBIDOPA/LEVODOPA 25/100MG EXT REL TAB PO SCH (08:51)
[2016-07-19] MEDS: POTASSIUM CHLORIDE 20 MEQ TABCR PO SCH (08:51)
[2016-07-19] MEDS: CHOLECALCIFEROL 1000 INTER.UNIT TAB PO SCH (08:51)
[2016-07-19] MEDS: LUBIPROSTONE 8 MCG CAP PO SCH (08:51)
[2016-07-19] MEDS: PANTOprazole SOD 40 MG TAB PO SCH (08:51)
[2016-07-19] MEDS: FUROSEMIDE 20 MG TAB PO SCH (08:52)
[2016-07-19] MEDS: AMIODARONE 200 MG TAB PO SCH (08:52)
[2016-07-19] MEDS: DULOXETINE (CYMBALTA) 30 MG CAP PO SCH (08:52)
[2016-07-19] MEDS: ENOXAPARIN 40 MG/0.4 ML SYR SQ SCH (08:53)
[2016-07-19] MEDS: POLYETHYLENE (MIRALAX) 17 GM PACK PO SCH (08:54)
[2016-07-19] MEDS ORDERED: PRED20TA PO ×2 (09:03)
[2016-07-19] MEDS ORDERED: LVQ500 PO (09:03)
[2016-07-19] MEDS ORDERED: ATRINS INH ×2 (09:03)
[2016-07-19] MEDS ORDERED: XPNINS1255 INH ×2 (09:03)
--- NOTE | 2016-07-19 09:10 | Discharge Instructions ---
Discharge Instructions Date of Service Jul 19, 2016. Admission Reason for Admission: Hypoxia, Pneumonia Involving Right Lung Discharge Discharge Diagnosis / Problem: Likely pneumonia in the right lower lung and COPD exacerbation, Discharge Goals Goal(s): Decrease discomfort, Improve function, Increase independence, Improve disease control, Improve nutritional status, Learn about illness, Diagnostic testing, Therapeutic intervention, Prevent Disease Progression, Specific goals Activity Recommendations Activity Level: Up Ad Mackenzie (fall precaution) Therapies: Physical Therapy, Occupational Therapy . Additional Information Patient informed of condition: Yes Advance Directives: No DNR: No Level of Care: Acute Rehab Communicable Disease: No Prognosis: Other (guarded) Oxygen at (LPM): no Bowling Catheter: No Instructions / Follow-Up Instructions / Follow-Up you have pneumonia in the right lower lung and COPD exacerbation, in your Chest CT on July 16 2016there is subcentimeter nodularity within the superior segment of the right lower lobe. need to continue follow-up with PCP for the abnormal result yoi have Acute on chronic diastolic CHF/CAD/hypertension/status post CABG 2, stable you have Severe Parkinson's, stable, fall precaution - you need to follow up with your primary care physician in 1 week, - take medication as instructed, never overdose or any misuse, or take with alcohol, because misuse of medicine may cause organ damage or , call your primary care physician if have questions of medicaitons. - call your primary care physician OR go to local emergency room if has any fever/chill, chest pain, shortness of breathing, nausea/vomiting/abdominal pain , facial droop/slurry speech/local weakness, or if has any questions. - fall precaution - diet as instructed - you need to follow up with your subspecialist - you should understand that it is important to follow up the above instruction , and "not following the above instruction" may cause delayed or missed care of your medical conditions which may cause permanent organ damage and even . Current Hospital Diet Patient's current hospital diet: AHA Diet (Heart Healthy) Discharge Diet Recommended Diet: AHA Diet (Heart Healthy) Pending Studies Studies pending at discharge: no Physician Orders On Transfer POLST Discussion: Not Applicable Laboratory Results Meds Administered (Past 24Hrs) Medications (Trade) Dose Ordered Sig/Igor Route Start Time Stop Time Status Last Admin Dose Admin Levofloxacin (Levaquin Tab) 500 mg QPM@1900 PO 07/17/16 19:00 07/19/16 21:59 07/18/16 19:42 500 MG Furosemide (Lasix Tab) 20 mg QAM PO 07/18/16 08:00 08/17/16 07:59 07/19/16 08:52 20 MG Prednisone (PredniSONE TAB) 40 mg DAILY PO 07/18/16 08:00 08/17/16 07:59 07/19/16 08:50 40 MG Ipratropium [place] (Atrovent 0.02% 0.5MG/2.5ML Neb) 0.5 mg Q6R INH 07/18/16 15:00 08/17/16 14:59 07/19/16 07:33 0.5 MG Levalbuterol (Xopenex 1.25MG/ 0.5ML Neb) 1.25 mg Q6R INH 07/18/16 15:00 08/17/16 14:59 07/19/16 07:33 1.25 MG Medical Emergencies . Who to Call and When: Medical Emergencies: If at any time you feel your situation is an emergency, please call 911 immediately. . Non-Emergent Contact Non-Emergency issues call your: Primary Care Provider . . "Provider Documentation" section prepared by Mayur Leon. Core Measure Problem Core Measures: None
[2016-07-19 10:28] VITALS: BP 150/77; PULSE 18; TEMP 36.7; O2SAT 94
--- NOTE | 2016-07-19 11:08 | Discharge Summary ---
Discharge Summary Date of Service Jul 19, 2016. Discharge Summary Admission Date: Jul 13, 2016 at 21:07 Discharge Date: Jul 19, 2016 Discharge Disposition: Rehab Principal Diagnosis: right lower lung and COPD exacerbation, Problems/Secondary Diagnoses: subcentimeter nodularity within the superior segment of the right lower lobe. Acute on chronic diastolic CHF/CAD/hypertension/status post CABG 2, stable Severe Parkinson's, Immunizations: Have You Had Influenza Vaccine: Yes Influenza Vaccine Date: Mar 07, 2007 History of Tetanus Vaccine?: Yes Tetanus Immunization Date: Jul 19, 2010 History of Pneumococcal: Yes History of Hepatitis B Vaccine: No Procedures: No Consultations: In Service Coordinator Medication Reconciliation New Medications: Prednisone (Prednisone) 20 Mg Tab 2 TAB PO DAILY for 5 Days Ipratropium Spring (Ipratropium Spring) 0.5 Mg/2.5 Ml Nebu 0.5 MG INH Q6R for 7 Days Ipratropium Spring (Ipratropium Spring) 0.5 Mg/2.5 Ml Nebu 0.5 MG INH Q2H PRN for Shortness of Breath for 7 Days Levalbuterol (Levalbuterol) 1.25 Mg/0.5 Ml Nebu 1.25 MG INH Q6R for 7 Days Levalbuterol (Levalbuterol) 1.25 Mg/0.5 Ml Nebu 1.25 MG INH Q2H PRN for Shortness of Breath for 7 Days Levofloxacin (Levofloxacin) 500 Mg Tab 500 MG PO QPM@1900 for 4 Days, TAB Continued Medications: Acetaminophen (Tylenol) 325 Mg Tab 650 MG PO Q6 PRN for Mild Pain DO NOT EXCEED 3GM/24HRS PAIN RATE FROM 0-3 ON 0-10 SCALE Acetaminophen (Tylenol) 325 Mg Tab 650 MG PO Q6 PRN for TEMP > 101 DO NOT EXCEED 3GM/24HRS Amiodarone HCl (Amiodarone HCl) 200 Mg Tab 200 MG PO DAILY Amlodipine (Norvasc) 10 Mg Tab 10 MG PO DAILY, TAB Aspirin (Aspirin Ec) 81 Mg Tab 81 MG PO DAILY Carbidopa/Levodopa (Sinemet Cr 25MG/100MG) Tabcr 2 TAB PO QAM, TAB Carbidopa/Levodopa (Sinemet 25MG/250MG) Tab 1 TAB PO PM, TAB Carbidopa/Levodopa (Sinemet 25MG/100MG) Tab 1 TAB PO qafternoon, #30 TAB 1 Refill Cholecalciferol (Vitamin D3) 2,000 Unit Cap 1 CAP PO DAILY for 90 Days, #90 CAP 3 Refills Desloratadine (Clarinex) 5 Mg Tab 5 MG PO DAILY, TAB Docusate Sodium (Colace) 100 Mg Cap 100 MG PO BID Duloxetine HCl (Cymbalta) 30 Mg Cap 30 MG PO DAILY for 30 Days, #30 CAP 2 Refills Fluticasone Prop/Salmeterol (Advair Diskus 250-50 Mcg/Dose) 14 Puff/1 Inhaler Aerp 1 PUFF INH Q12 Furosemide (Lasix) 20 Mg Tab 2 TAB PO DAILY for 30 Days, #60 TAB 5 Refills Hydralazine Hcl (Apresoline) 100 Mg Tab 1 TAB PO TID for 30 Days, #90 TAB 5 Refills Lubiprostone (Amitiza) 8 Mcg Cap 8 MCG PO DAILY, CAP Metoprolol Succ (Toprol Xl) (Toprol-Xl) 50 Mg Tabcr 75 MG PO HS Polyethylene Glycol 3350 (Miralax) 1 Pow Pow 17 GM PO BID can take up to twice daily Potassium Chloride (Klor-Con M20) 20 Meq Tabcr 20 MEQ PO DAILY for 30 Days, #30 TABS Simvastatin (Zocor) 20 Mg Tab 20 MG PO QPM, TAB Tamsulosin HCl (Tamsulosin HCl) 0.4 Mg Cap 0.4 MG PO HS Tiotropium Spring (Spiriva Handihaler) 5 Puff/90 Mcg Aerp 1 PUFF INH QAM for 30 Days Discontinued Medications: Albuterol Hfa (Ventolin Hfa) 200 Puffs/66981 Mcg Aers 2 PUFFS INH QID, #1 INHALER Discharge Exam Sitting up in chair, generally feeling okay, resting tremor is the same, Review of Systems: Constitutional: No chills, No fatigue, No fever, No problem reported, No sweats, No weakness, No weight loss Eyes: No diplopia, No discharge, No eye pain, No problem reported, No redness, No worsening of vision ENT: No dental problems, No hearing loss, No nasal symptoms, No problem reported, No sore throat, No tinnitus, No trouble swallowing, No unusual epistaxis Respiratory: + cough (mild) Cardiovascular: + edema (trace), No PND, No chest pain, No claudication, No orthopnea, No palpitations, No problem reported Abdomen: No GI bleeding, No constipation, No diarrhea, No nausea, No pain, No problem reported, No vomiting Musculoskeletal: No calf pain, No joint pain, No muscle pain, No problem reported, No swelling Genitourinary - Male: No dysuria, No hematuria, No impotence, No lesions, No penile discharge, No problem reported, No urinary frequency, No urinary hesitancy, No urinary incontinence, No urinary retention, No urinary urgency Neurologic: No balance problems, No memory loss, No numbness/tingling, No paralysis, No problem reported, No vertigo, No weakness Psychiatric: + problem reported (resting tremor), No anhedonism, No anxiety , No depression symptoms, No insomnia, No substance abuse Endocrine: + excessive thirst, + fatigue Hematologic / Lymphatic: + abnormal bleeding/bruising, + clotting problems Integumentary: + itch Physical Exam: General Appearance: WD/WN, no apparent distress Eyes: normal inspection, PERRL ENT: normal ENT inspection, hearing grossly normal, TMs normal Neck: supple, no adenopathy Respiratory/Chest: chest non-tender, no respiratory distress, no accessory muscle use, + decreased breath sounds Cardiovascular: regular rate, rhythm, no edema, no gallop, no JVD Abdomen / GI: normal bowel sounds, non tender, soft, no organomegaly, no pulsatile mass Extremities: normal inspection, no calf tenderness, normal capillary refill , no pedal edema Neurologic/Psychiatric: 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 Per report . His reports that he was evaluated by the home health nurse today,who called the patient's PCP, who then recommended that patient come to emergency department for evaluation. He was most recently been on any from June 17 through June 23 for acute on chronic diastolic CHF, and was started on Lasix at that time. He feels his symptoms are similar now to that time as well. His has also noted him having more audible congested breath sounds. Likely pneumonia in the right lower lung and COPD exacerbation, Chest CT no us no obvious infiltration on 07/16/2016 Has been on IV antibiotics on Levaquin, which was changed to by mouth, continue stable Continue current guaifenesin extended release 60 mg by mouth twice a day, switch Solu-Medrol, to prednisone , planning to oral prednisone upon discharge Home Symbicort was started, restart Advair echo was done Blood culture so far is negative, Sputum culture sent percent, requests to pulmonology consultation because condition not improve Nebulizer treatment seems significantly improved patient's wheezing, combined the above medical condition with likely most likely diagnosis COPD exacerbation , I ordered nebulizer machine to home upon discharge able to be off nasal cannula oxygen, do not need O2 while walk per [address] exercise test Chest CT on July 16 2016: 1. Interval development of subcentimeter nodularity within the superior segment of the right lower lobe. This is felt to be inflammatory. 2. Interval development of bibasilar airspace opacities, inflammatory versus atelectatic. 3. Cholelithiasis 4. 5 cm right renal cyst 5. Stable nodular thickening left adrenal gland 6. Emphysema 7. Coronary artery calcifications Has discussed the CT results with patient, and family, recommend to continue follow-up with PCP for the above abnormal results Acute on chronic diastolic CHF/CAD/hypertension/status post CABG 2, stable received Lasix 40 mg IV in the emergency department with good response. However renal function getting worse after increased diuretic, creatinine level is better, we'll continue hold Lasix Last echo was last year, repeat echo: * Ejection Fraction = 55-60%. Detail, please see the formal report Continue amiodarone 200 mg by mouth daily, amlodipine 10 mg by mouth daily, Continue enteric-coated aspirin 81 mg by mouth daily, Continue hydralazine 100 mg by mouth 3 times a day, metoprolol succinate 75 mg by mouth at bedtime, and potassium chloride 20 mEq by mouth daily. Severe Parkinson's, stable continue usual dosing of Sinemet CR 25/100 mg, taken 2 tablets by mouth every morning. Sinemet 25/250 one by mouth every afternoon. Continue Sinemet 25/100 one by mouth every afternoon. episode of dizziness with cold sweat, possible from auto neuropathy from PD, or hypoglycemia (this is less likely b/c patient had breakfast), no more episodes, Hypercholesterolemia BPH was on Bowling catheter upon admission, we'll discontinue Bowling catheter Depression- GI dysmotility Seasonal allergy Constipation The above condition is stable, continue current care Vitamin D deficiency--continue cholecalciferol 2000units by mouth daily. PT OT, PT recommend 24/ 7 supervision and care with the new episode of dizziness/cold sweat, I told pt need to reconsider ECF , rehab, Patient is accepted to [facility] today I called to Dr Chaidez #[id number], updated him pt's condition and care plan, GI and DVT prophylaxis is ordered, PTOT social service technician consultation Instructions / Follow-Up you have pneumonia in the right lower lung and COPD exacerbation, in your Chest CT on July 16 2016there is subcentimeter nodularity within the superior segment of the right lower lobe. need to continue follow-up with PCP for the abnormal result yoi have Acute on chronic diastolic CHF/CAD/hypertension/status post CABG 2, stable you have Severe Parkinson's, stable, fall precaution - you need to follow up with your primary care physician in 1 week, - take medication as instructed, never overdose or any misuse, or take with alcohol, because misuse of medicine may cause organ damage or , call your primary care physician if have questions of medicaitons. - call your primary care physician OR go to local emergency room if has any fever/chill, chest pain, shortness of breathing, nausea/vomiting/abdominal pain , facial droop/slurry speech/local weakness, or if has any questions. - fall precaution - diet as instructed - you need to follow up with your subspecialist - you should understand that it is important to follow up the above instruction , and "not following the above instruction" may cause delayed or missed care of your medical conditions which may cause permanent organ damage and even . Total Time Spent: Greater than 30 minutes This includes examination of the patient, discharge planning, medication reconciliation, and communication with other providers. Discharge Instructions Please refer to the electronic Patient Visit Report (Discharge Instructions) for additional information. Additional Copies To Jeromy Hanson M.D.
[2016-08-04] MEDS ORDERED: FURO-85 PO (13:07)
[2016-08-04] MEDS ORDERED: PRED20TA PO (13:09)
[2016-08-04] MEDS ORDERED: METO-217 PO (13:17)
[2016-10-29] MEDS ORDERED: FURO40TA3 PO (12:49)
[2016-11-07] MEDS ORDERED: FURO-85 PO (13:09)
[2017-01-07] MEDS ORDERED: SIMV20TA2 PO (06:30)
[2017-01-07] MEDS ORDERED: METO50TA7 PO (06:43)
[2017-01-07] MEDS ORDERED: DOCU-94 PO (12:41)
[2017-01-07] MEDS ORDERED: PSEU60TA80 PO (12:53)
[2017-01-07] MEDS ORDERED: PANT1TAB48 PO (12:55)
[2017-01-07] MEDS ORDERED: MULT-506 PO (12:55)
[2017-01-07] MEDS ORDERED: FRS/40 PO (13:09)
[2017-01-07] MEDS ORDERED: CARB50TA3 PO (13:14)
[2017-01-07] MEDS ORDERED: HYDR100T12 PO (15:21)
[2017-01-07] MEDS ORDERED: ASPI81TA28 PO (16:17)
[2017-01-07] MEDS ORDERED: CHOL2000 PO (16:33)
[2017-01-07] MEDS ORDERED: PANT20TA2 PO (18:31)
== END 2016-07-19 13:00 | DRG 291 ==
LOC: ENRESERVTM → ENRESERVDT → C.EDB 15:59 → C.MS4W 21:07
PROVIDERS: ADMIT Hospitalist; ATTEND Hospitalist
DX: I11.0 Hypertensive heart disease with heart failure (principal); J18.9 Pneumonia, unspecified organism; N17.9 Acute kidney failure, unspecified; J44.0 Chronic obstructive pulmonary disease with (acute) lower respiratory infection; J44.1 Chronic obstructive pulmonary disease with (acute) exacerbation; J98.11 Atelectasis; I50.33 Acute on chronic diastolic (congestive) heart failure; I25.10 Atherosclerotic heart disease of native coronary artery without angina pectoris; I13.0 Hypertensive heart and chronic kidney disease with heart failure and stage 1 through stage 4 chronic kidney disease, or unspecified chronic kidney disease; N18.3 Chronic kidney disease, stage 3 (moderate); G20 Parkinson's disease; E78.00 Pure hypercholesterolemia, unspecified; N40.0 Benign prostatic hyperplasia without lower urinary tract symptoms; F32.9 Major depressive disorder, single episode, unspecified; K59.00 Constipation, unspecified; E55.9 Vitamin D deficiency, unspecified; G47.33 Obstructive sleep apnea (adult) (pediatric); Z79.82 Long term (current) use of aspirin; Z79.899 Other long term (current) drug therapy; F17.210 Nicotine dependence, cigarettes, uncomplicated; Z95.1 Presence of aortocoronary bypass graft

== ENCOUNTER → 2016-07-30 | Outpatient (CLI) | payer OTHER ==
[~2016-07-30] MED LIST changes: +ADVIN25050 INH; -ALBUAER INH; +AMLO-114 PO; +ASPI81TA28 PO; +ATRINS INH; +CARB50TA3 PO; -CHOL100010 PO; +CHOL2000 PO; +CRD200 PO; +CYM/30 PO; +FLM4 PO; +FRS/40 PO; +FURO-85 PO; +FURO40TA3 PO; +GADAVIST IV PRN; +HYDR100T12 PO; +IPRASOL4 INH; +LEVA1.255 PO; +LUBI8CAP4 PO; +LVQ500 PO; +METH4PAK PO; +METO-217 PO; +METO50TA7 PO; +MULT-506 PO; +NRN100 PO; +PANT1TAB48 PO; +PANT20TA2 PO; +POTA20TA13 PO; -PRD10 PO; +PRD20 PO; +PRED20TA PO; +PSEU60TA80 PO; +SIMV20TA2 PO; +SPRIN/30 PO; +XPNINS125 PO; +XPNINS1255 INH
--- NOTE | 2016-07-30 18:25 | DIAGNOSTIC IMAGING REPORT ---
LUMBAR SPINE MRI WITH AND WITHOUT CONTRAST HISTORY: Pain. Radiculopathy. RECURRENT FEVER, HX LUMBAR SPINE INFECTION TECHNIQUE: Multiplanar multisequence MRI of the lumbar spine was performed both before and after the intravenous administration of contrast. COMPARISON: 03/05/2016 FINDINGS: For the purpose of the report the L5-S1 disc space will be located on axial image 27 of 30. Sagittal images in general show a moderately improved exam. Signal characteristics of the L4 vertebral body have reverted to a near normal position. The small amount of fluid posterior to L4 vertebral body appears to have resolved. There continues to be granulation and or post inflammatory tissue posterior to the L4-L5 level of the posterior paraspinal musculature and paravertebral column. The fluid component, however as shown a suitable decrease and near complete resolution. A drainable abscess or collection is not felt to be present currently. L1-L2: No significant central canal or neural foraminal narrowing. L2-L3: No significant central canal or neural foraminal narrowing. L3-L4: Improving granulation tissue posterior to the spinous processes and spinal canal. L4-L5: Interval resolution of the fluid component posterior laminectomy and fusion posterior to the thecal sac. Diameter of the spinal canal remains similar and narrowed. Considerable granulation tissue is identified posterior to the spinal canal. There continues be a minimal fluid collection medially medial to the left screw considerably diminished, however compared to the prior study. This measures 13 x 5 mm. L5-S1: Mild central disc bulge similar compared to the prior study. Minimal impact anterior thecal sac. Unchanging postoperative changes of the posterior paraspinal musculature. IMPRESSION: 1. Improved exam. 2. Signal characteristics of the L4 vertebral body have reverted to a baseline/near normal appearance. 3. The collection posterior to the L4 vertebral body level has shown considerable decrease in volume and/or near complete resolution. Minimal residual fluid pocket medial to left screw posterior to the thecal sac. 4. Persistent post procedural/post inflammatory granulation tissue posterior to the L4-L5 level of the lumbar spine. This is similar to slightly improved from the prior exam. 5. Persistent significant narrowing of spinal canal at L4-L5 unchanged from the prior study. Electronically signed by: Boni Sutton M.D. 07/30/2016 6:23 PM Dictated Date/Time: 07/30/2016 6:13 PM
== END | disposition home or self-care (01) ==
LOC: C.MRI 17:15
PROVIDERS: ATTEND Physical Medicine & Rehabilitation
DX: M86.9 Osteomyelitis, unspecified (principal)

== ENCOUNTER 2016-08-03 09:00 | Emergency (ER) | payer OTHER ==
[~2016-08-03 09:00] MED LIST changes: -ADVIN25050 INH; -AMLO-114 PO; -ASPI81TA28 PO; -CARB50TA3 PO; -CHOL2000 PO; -CRD200 PO; -CYM/30 PO; -FLM4 PO; -FRS/40 PO; -FURO-85 PO; -FURO40TA3 PO; -GADAVIST IV PRN; -HYDR100T12 PO; -IPRASOL4 INH; -LEVA1.255 PO; -LUBI8CAP4 PO; -METH4PAK PO; -METO-217 PO; -METO50TA7 PO; -MULT-506 PO; -NRN100 PO; -PANT1TAB48 PO; -PANT20TA2 PO; -POTA20TA13 PO; -PRD20 PO; -PRED20TA PO; -PSEU60TA80 PO; -SIMV20TA2 PO; -SPRIN/30 PO; -XPNINS125 PO
[2016-08-03 09:10] VITALS: TEMP 36.7
--- NOTE | 2016-08-03 09:44 | EMERGENCY ROOM VISIT NOTE ---
ED Visit Note First contact with patient: 09:23 65-year-old male here from [facility] requiring IV placement. The patient was fully evaluated by Fox Geronimo PA-C. I also independently evaluated the patient. An IV was placed in his right hand successfully. The patient will return to [facility].
[2016-08-03 10:36] VITALS: BP 136/78; PULSE 58; O2SAT 98
--- NOTE | 2016-08-03 17:10 | EMERGENCY ROOM VISIT NOTE ---
ED Visit Note First contact with patient: 09:23 Chief Complaint: Peripheral IV access. History of Present Illness: Mr. Damon is a 65-year-old white male who was transferred from [facility] for the establishment of peripheral IV access. Patient is currently on IV Zosyn and vancomycin for an ongoing infection. His IV access was lost and was not able to be reestablished at that facility and he was transferred to the ED. Patient has no other complaints at this time and reports he is feeling well. He denies any fevers, chills, shortness of breath, abdominal pain, nausea, vomiting, chest pain. Review of Systems: As noted above in history of present illness. Past Medical History: (1) Abscess in epidural space of lumbar spine (2) Acute on chronic diastolic (congestive) heart failure (3) Back pain (4) Bronchitis (5) Bulging disc (6) Chest wall pain (7) COPD (chronic obstructive pulmonary disease) (8) COPD exacerbation (9) Fall (10) Hallucinations (11) Heart disease (12) Hyperlipidemia (13) Hypertension (14) Hypoxia (15) inability to ambulate (16) Lumbar stenosis with neurogenic claudication (17) Parkinson disease (18) Parkinsons disease (19) Pneumonia involving right lung (20) Radicular pain of right lower extremity (21) Seizure-like activity (22) Shoulder pain Surgical Problems: (1) History of appendectomy (2) S/P CABG x 2 Current Medications: Medications Dose Route/Sig Max Daily Dose Days Date Category Dose Instructions Levalbuterol 1.25 Mg/0.5 Ml Nebu 1.25 Mg INH Q2H PRN 7 07/19/16 Rx Levalbuterol 1.25 Mg/0.5 Ml Nebu 1.25 Mg INH Q6R 7 07/19/16 Rx Ipratropium Eldred 0.5 Mg/2.5 Ml Nebu 0.5 Mg INH Q2H PRN 7 07/19/16 Rx Ipratropium Eldred 0.5 Mg/2.5 Ml Nebu 0.5 Mg INH Q6R 7 07/19/16 Rx Levofloxacin 500 Mg Tab 500 Mg PO QPM@1900 4 07/19/16 Rx Vitamin D3 (Cholecalciferol) 2,000 Unit Cap 1 Cap PO DAILY 90 07/13/16 Reported Lasix (Furosemide) 20 Mg Tab 2 Tab PO DAILY 30 06/23/16 Rx Klor-Con M20 (Potassium Chloride) 20 Meq Tabcr 20 Meq PO DAILY 30 06/23/16 Rx Sinemet 25MG/100MG (Carbidopa/Levodopa) Tab 1 Tab PO QAFTERNOON 06/17/16 Rx Clarinex (Desloratadine) 5 Mg Tab 5 Mg PO DAILY 06/17/16 Reported Sinemet 25MG/250MG (Carbidopa/Levodopa) Tab 1 Tab PO PM 06/17/16 Reported Sinemet Cr 25MG/100MG (Carbidopa/Levodopa) Tabcr 2 Tab PO QAM 06/17/16 Reported Spiriva Handihaler (Tiotropium Eldred) 5 Puff/90 Mcg Aerp 1 Puff INH QAM 30 04/02/16 Rx Amitiza (Lubiprostone) 8 Mcg Cap 8 Mcg PO DAILY 03/29/16 Reported Cymbalta (Duloxetine HCl) 30 Mg Cap 30 Mg PO DAILY 30 03/29/16 Reported Norvasc (Amlodipine Besylate) 10 Mg Tab 10 Mg PO DAILY 03/29/16 Reported Apresoline (Hydralazine Hcl) 100 Mg Tab 1 Tab PO TID 30 02/05/16 Reported Toprol-Xl (Metoprolol Succinate) 50 Mg Tabcr 75 Mg PO HS 12/04/15 Reported Tylenol (Acetaminophen) 325 Mg Tab 650 Mg PO Q6 PRN 12/04/15 Reported DO NOT EXCEED 3GM/24HRS Colace (Docusate Sodium) 100 Mg Cap 100 Mg PO BID 12/04/15 Reported Zocor (Simvastatin) 20 Mg Tab 20 Mg PO QPM 12/04/15 Reported Miralax (Polyethylene Glycol 3350) 1 Pow Pow 17 Gm PO BID 09/14/15 Reported can take up to twice daily Tylenol (Acetaminophen) 325 Mg Tab 650 Mg PO Q6 PRN 08/11/15 Reported DO NOT EXCEED 3GM/24HRS PAIN RATE FROM 0-3 ON 0-10 SCALE Aspirin Ec (Aspirin) 81 Mg Tab 81 Mg PO DAILY 08/11/15 Reported Tamsulosin HCl 0.4 Mg Cap 0.4 Mg PO HS 10/13/14 Reported Amiodarone HCl 200 Mg Tab 200 Mg PO DAILY 10/13/14 Reported Advair Diskus 250-50 Mcg/Dose (Fluticasone Prop/Salmeterol) 14 Puff/1 Inhaler Aerp 1 Puff INH Q12 07/02/13 Reported Allergies to Medications: Benztropine, eletriptan, ropinirole. Social History: Patient is not employed; he denies tobacco use. Physical Examination: Vital Signs: Date Time Temp Pulse Resp B/P Pulse Ox O2 Delivery O2 Flow Rate FiO2 08/03/16 10:36 58 20 136/78 98 08/03/16 10:13 58 20 136/78 98 Room Air 08/03/16 09:10 36.7 59 18 126/68 97 Room Air GENERAL: 65-year-old male in no acute distress, chronically ill-appearing, afebrile and hemodynamically stable. NEUROLOGICAL: Awake, alert and oriented to person and place. Answering questions appropriately and following commands. Hands are tremulous because of his Parkinson's. SKIN: Warm, dry and pink. No soft tissue eruptions or trauma noted. HEENT: Atraumatic and normocephalic. PERRLA. Sclera white and conjunctiva pink. Lips are dry oral mucosa is moist and pink. Airway is patent. No lymphadenopathy. Trachea midline. No jugular venous distention. BACK: No tenderness over the bony spine. THORAX: Lungs sounds are clear to auscultation and equal bilaterally with symmetrical chest wall. HEART: Regular rate and rhythm. ABDOMEN: Flat, soft and nontender. Positive bowel sounds in all quadrants. EXTREMITIES: Moves all extremities well on command and with purpose. All distal neurovascular statuses are intact and equal bilaterally. No calf tenderness or cords. ED Course: Patient is assessed as noted above. Nursing staff was able to place a peripheral IV. Patient's case was reviewed with Dr. Barney; we agreed on diagnostic approach, treatment, disposition and plan. Patient was discharged to [facility] for return to [facility] in stable condition. Clinical Impression: IV access for IV antibiotic therapy. Disposition: Patient discharged in stable condition and had no other complaints at this time. Plan: Was encouraged the patient continue his current medications as prescribed. Was encouraged the patient follow-up with family physician as needed. Was encouraged that the patient return to the ED as needed.
[2016-08-04] MEDS ORDERED: FURO-85 PO (13:07)
[2016-08-04] MEDS ORDERED: PRED20TA PO (13:09)
[2016-08-04] MEDS ORDERED: METO-217 PO (13:17)
[2016-10-29] MEDS ORDERED: FURO40TA3 PO (12:49)
[2016-11-07] MEDS ORDERED: FURO-85 PO (13:09)
[2017-01-07] MEDS ORDERED: SIMV20TA2 PO (06:30)
[2017-01-07] MEDS ORDERED: METO50TA7 PO (06:43)
[2017-01-07] MEDS ORDERED: DOCU-94 PO (12:41)
[2017-01-07] MEDS ORDERED: PSEU60TA80 PO (12:53)
[2017-01-07] MEDS ORDERED: MULT-506 PO (12:55)
[2017-01-07] MEDS ORDERED: PANT1TAB48 PO (12:55)
[2017-01-07] MEDS ORDERED: FRS/40 PO (13:09)
[2017-01-07] MEDS ORDERED: CARB50TA3 PO (13:14)
[2017-01-07] MEDS ORDERED: HYDR100T12 PO (15:21)
[2017-01-07] MEDS ORDERED: ASPI81TA28 PO (16:17)
[2017-01-07] MEDS ORDERED: CHOL2000 PO (16:33)
[2017-01-07] MEDS ORDERED: PANT20TA2 PO (18:31)
== END 2016-08-03 10:39 | disposition home or self-care (01) ==
LOC: C.EDB 09:02
DX: Z46.82 Encounter for fitting and adjustment of non-vascular catheter (principal); B99.9 Unspecified infectious disease; J44.9 Chronic obstructive pulmonary disease, unspecified; I10 Essential (primary) hypertension; E78.5 Hyperlipidemia, unspecified; G20 Parkinson's disease; I50.33 Acute on chronic diastolic (congestive) heart failure; M48.06 Spinal stenosis, lumbar region; Z95.1 Presence of aortocoronary bypass graft; Z91.81 History of falling; Z98.890 Other specified postprocedural states; Z79.82 Long term (current) use of aspirin; Z79.899 Other long term (current) drug therapy; Z88.8 Allergy status to other drugs, medicaments and biological substances

== ENCOUNTER → 2016-09-04 | Outpatient (CLI) | payer OTHER ==
[~2016-09-04] MED LIST changes: -ACET-1311 PO; +ADVIN25050 INH; +AMLO-114 PO; +ASPI81TA28 PO; -CARB25TA12 PO; -CARB25TA14 PO; -CARB25TA16 PO; +CARB50TA3 PO; +CHOL2000 PO; +CRD200 PO; +CYM/30 PO; +FLM4 PO; +FRS/40 PO; +FURO-85 PO; -FURO20TA PO; +FURO40TA3 PO; +HYDR100T12 PO; +IPRASOL4 INH; +LEVA1.255 PO; +LUBI8CAP4 PO; +METH4PAK PO; +METO-217 PO; +METO50TA7 PO; +MULT-506 PO; +NRN100 PO; +PANT1TAB48 PO; +PANT20TA2 PO; +POTA20TA13 PO; +PRD20 PO; +PRED20TA PO; +PSEU60TA80 PO; +SIMV20TA2 PO; -SPRIN INH; +SPRIN/30 PO; +XPNINS125 PO
[2016-09-04 17:27] LABS: BASO % 1.6 %; BASO ABS # 0.16 K/uL (0-0.2); COMPLETE YES; EOS % 3.9 %; HEMATOCRIT 33.4 % (42-52); IG% 0.4 %; LYMPH % 26.1 %; MEAN CELL VOLUME 88.6 fL (80-100); MEAN CORPUSCULAR HEMOGLOBIN 26.5 pg (25-34); MEAN CORPUSCULAR HGB CONC 29.9 g/dl (32-36); MONO % 10.9 %; NEUT % 57.1 %; PLATELET COUNT 274 K/uL (130-400); RED BLOOD COUNT 3.77 M/uL (4.7-6.1); WHITE BLOOD COUNT 9.96 K/uL (4.8-10.8)
[2016-09-04 17:39] LABS: ALT/SGPT 8 U/L (12-78); AST/SGOT 17 U/L (15-37); BLOOD UREA NITROGEN 11 mg/dl (7-18); BUN/CREATININE RATIO 9.6 (10-20); CALCIUM 8.6 mg/dl (8.5-10.1); CARBON DIOXIDE 33 mmol/L (21-32); CHLORIDE 106 mmol/L (98-107); GLUCOSE 86 mg/dl (70-99); POTASSIUM 3.4 mmol/L (3.5-5.1); SODIUM 143 mmol/L (136-145)
[2016-09-04 17:42] LABS: ALB/GLOB RATIO 0.8 (0.9-2); ALKALINE PHOSPHATASE 78 U/L (45-117); CHOLESTEROL 102 mg/dl (0-200); CHOLESTEROL/HDL RATIO 2.2; HDL CHOLESTEROL 47 mg/dl; LDL CHOLESTEROL CALCULATED 35 mg/dl; TRIGLYCERIDES 102 mg/dl (0-150); VERY LOW DENSITY LIPOPROT CALC 20 mg/dl
[2016-09-05 06:09] LABS: ESTIMATED AVERAGE GLUCOSE 126 mg/dl; HA1C FLAG Normal (Normal)
== END | disposition home or self-care (01) ==
LOC: C.LABBFT 17:50
PROVIDERS: ATTEND Physician Assistant Medical
DX: E11.9 Type 2 diabetes mellitus without complications (principal)

== ENCOUNTER → 2016-09-17 | Outpatient (CLI) | payer OTHER ==
[2016-09-17 18:10] LABS: BASO % 1.3 %; BASO ABS # 0.13 K/uL (0-0.2); COMPLETE YES; EOS % 3.3 %; IG% 0.4 %; LYMPH % 20.1 %; LYMPH ABS # 1.94 K/uL (1.2-3.4); MEAN CELL VOLUME 88.5 fL (80-100); MEAN CORPUSCULAR HEMOGLOBIN 27.3 pg (25-34); MEAN CORPUSCULAR HGB CONC 30.9 g/dl (32-36); MEAN PLATELET VOLUME 10.3 fL (7.4-10.4); MONO % 9.8 %; NEUT % 65.1 %; PLATELET COUNT 263 K/uL (130-400); RED BLOOD COUNT 3.84 M/uL (4.7-6.1); WHITE BLOOD COUNT 9.64 K/uL (4.8-10.8)
[2016-09-17 18:34] LABS: BLOOD UREA NITROGEN 14 mg/dl (7-18); GLUCOSE 103 mg/dl (70-99)
[2016-09-17 18:35] LABS: BUN/CREATININE RATIO 8.6 (10-20); CALCIUM 8.7 mg/dl (8.5-10.1); CARBON DIOXIDE 29 mmol/L (21-32); CHLORIDE 107 mmol/L (98-107); SODIUM 142 mmol/L (136-145)
[2016-09-17 18:38] LABS: FERRITIN 10.8 ng/ml (8.0-388.0)
--- NOTE | 2016-09-24 09:03 | CODING QUERY MEDICAL NECESSITY ---
SUPPORTING DIAGNOSIS NEEDED Krystal SALAS, A supporting diagnosis is required for the test/procedure performed on this patient in order for us to be reimbursed by the patient's insurance. Please provide a supporting diagnosis for the following test/procedure listed below next to the test name along with your signature. *If there is no additional diagnosis for this patient that would support the following test/procedure please document that below next to the test/procedure. Test(s)/Procedure(s) that require a supporting diagnosis: * ([id number]) B12 VITAMIN LEVEL DIAGNOSIS: DATE OF SERVICE: 09/17/16 Provider Signature: Date: Thank you Jarod Dejesus [facility] Information Management Once completed, please kindly fax back to [phone] For questions please call [phone]
== END | disposition home or self-care (01) ==
LOC: C.LABPVFM 14:29
PROVIDERS: ATTEND Physician Assistant Medical
DX: Z00.00 Encounter for general adult medical examination without abnormal findings (principal); E87.6 Hypokalemia; D64.9 Anemia, unspecified; R53.83 Other fatigue

== ENCOUNTER → 2016-10-24 | Outpatient (CLI) | payer OTHER ==
[~2016-10-24] MED LIST changes: -IPRASOL4 INH; +PANT20TA PO; -PANT20TA2 PO; -PRD20 PO
[2016-10-24 14:43] LABS: URINE APPEARANCE CLEAR (CLEAR); URINE BILIRUBIN NEG (NEG); URINE COLOR YELLOW; URINE NITRITE NEG (NEG); URINE SPECIFIC GRAVITY 1.014 (1.000-1.030); UROBILINOGEN NEG (NEG); ZZUR CULT IF INDIC CLEAN CATCH NO
[2016-10-24 14:49] LABS: MANUAL MICROSCOPIC REQUIRED? NO; REVIEW REQ? NO
[2016-10-24 14:56] LABS: URINE PROTIEN/CREAT RATIO 0.3 (0-0.2); URINE TOTAL PROTEIN 10.1 mg/dl (0-11.9)
[2016-10-24 15:52] LABS: BLOOD UREA NITROGEN 13 mg/dl (7-18); BUN/CREATININE RATIO 10.2 (10-20); CALCIUM 9.2 mg/dl (8.5-10.1); CARBON DIOXIDE 30 mmol/L (21-32); CHLORIDE 105 mmol/L (98-107); GLUCOSE 109 mg/dl (70-99); MAGNESIUM 2.2 mg/dl (1.8-2.4); POTASSIUM 4.1 mmol/L (3.5-5.1); SODIUM 140 mmol/L (136-145)
[2016-10-24 15:53] LABS: PHOSPHORUS 2.6 mg/dl (2.5-4.9)
--- NOTE | 2016-11-18 09:22 | CODING QUERY MEDICAL NECESSITY ---
SUPPORTING DIAGNOSIS NEEDED Dr. Lynn, A supporting diagnosis is required for the test/procedure performed on this patient in order for us to be reimbursed by the patient's insurance. Please provide a supporting diagnosis for the following test/procedure listed below next to the test name along with your signature. *If there is no additional diagnosis for this patient that would support the following test/procedure please document that below next to the test/procedure. Test(s)/Procedure(s) that require a supporting diagnosis: * ([id number]) VITAMIN D ASSAY DIAGNOSIS: DATE OF SERVICE: 10/24/16 Provider Signature: Date: Thank you Jarod Dejesus [facility] Information Management Once completed, please kindly fax back to [phone] For questions please call [phone]
== END | disposition home or self-care (01) ==
LOC: C.LAB1850 13:22
PROVIDERS: ATTEND Internal Medicine Nephrology
DX: N17.9 Acute kidney failure, unspecified (principal); N18.9 Chronic kidney disease, unspecified; E55.9 Vitamin D deficiency, unspecified

== ENCOUNTER → 2016-11-14 | Outpatient (CLI) | payer OTHER ==
[~2016-11-14] MED LIST changes: -FURO40TA3 PO; -LVQ500 PO; -METO-217 PO; -PRED20TA PO; -XPNINS1255 INH
[2016-11-14 15:37] LABS: BASO % 1.1 %; BASO ABS # 0.11 K/uL (0-0.2); COMPLETE YES; EOS % 3.2 %; HEMATOCRIT 39.7 % (42-52); IG% 0.6 %; LYMPH % 18.6 %; LYMPH ABS # 1.95 K/uL (1.2-3.4); MEAN CELL VOLUME 89.6 fL (80-100); MEAN CORPUSCULAR HEMOGLOBIN 27.8 pg (25-34); MEAN PLATELET VOLUME 10.4 fL (7.4-10.4); MONO % 8.5 %; PLATELET COUNT 211 K/uL (130-400); RED BLOOD COUNT 4.43 M/uL (4.7-6.1); WHITE BLOOD COUNT 10.47 K/uL (4.8-10.8)
[2016-11-14 16:06] LABS: BLOOD UREA NITROGEN 17 mg/dl (7-18); BUN/CREATININE RATIO 14.4 (10-20); CALCIUM 8.8 mg/dl (8.5-10.1); CARBON DIOXIDE 30 mmol/L (21-32); CHLORIDE 106 mmol/L (98-107); GLUCOSE 83 mg/dl (70-99); POTASSIUM 3.8 mmol/L (3.5-5.1); SODIUM 140 mmol/L (136-145)
[2016-11-14 16:07] LABS: PHOSPHORUS 2.4 mg/dl (2.5-4.9)
== END | disposition home or self-care (01) ==
LOC: C.LAB1850 14:27
PROVIDERS: ATTEND Internal Medicine Nephrology
DX: N18.9 Chronic kidney disease, unspecified (principal); D64.9 Anemia, unspecified

== ENCOUNTER → 2016-12-19 | Outpatient (CLI) | payer OTHER ==
[2016-12-19 15:48] LABS: BASO % 0.5 %; BASO ABS # 0.08 K/uL (0-0.2); COMPLETE YES; EOS % 0.7 %; HEMATOCRIT 40.2 % (42-52); IG% 0.6 %; LYMPH % 13.3 %; LYMPH ABS # 2.31 K/uL (1.2-3.4); MEAN CELL VOLUME 89.7 fL (80-100); MEAN CORPUSCULAR HEMOGLOBIN 29.2 pg (25-34); MEAN CORPUSCULAR HGB CONC 32.6 g/dl (32-36); MEAN PLATELET VOLUME 10.2 fL (7.4-10.4); MONO % 10.1 %; NEUT % 74.8 %; PLATELET COUNT 197 K/uL (130-400); RED BLOOD COUNT 4.48 M/uL (4.7-6.1); WHITE BLOOD COUNT 17.34 K/uL (4.8-10.8)
[2016-12-19 16:14] LABS: BLOOD UREA NITROGEN 19 mg/dl (7-18); BUN/CREATININE RATIO 12.4 (10-20); CALCIUM 8.7 mg/dl (8.5-10.1); CARBON DIOXIDE 32 mmol/L (21-32); CHLORIDE 104 mmol/L (98-107); GLUCOSE 110 mg/dl (70-99); POTASSIUM 3.4 mmol/L (3.5-5.1); SODIUM 139 mmol/L (136-145)
== END | disposition home or self-care (01) ==
LOC: C.LAB 15:09
PROVIDERS: ATTEND Physician Assistant Medical
DX: D64.9 Anemia, unspecified (principal)

== ENCOUNTER → 2016-12-19 | Outpatient (CLI) | payer OTHER ==
[~2016-12-19] VITALS: Ht 177.8 cm; Wt 97.6 kg
[2016-12-19 14:10] VITALS: BP 123/70; PULSE 73; Ht 177.8 cm; Wt 97.6 kg
== END | disposition home or self-care (01) ==
LOC: C.NEUR 13:50
PROVIDERS: ATTEND Physician Assistant
DX: R53.83 Other fatigue (principal); G47.33 Obstructive sleep apnea (adult) (pediatric); G20 Parkinson's disease; D64.9 Anemia, unspecified

== ENCOUNTER 2016-12-23 11:51 | Emergency (ER) | payer OTHER ==
[~2016-12-23] VITALS: Ht 177.8 cm; Wt 97.8 kg
[~2016-12-23 11:51] MED LIST changes: -ADVIN25050 INH; -AMLO-114 PO; -ASPI81TA28 PO; -CARB50TA3 PO; -CHOL2000 PO; -CLR/5 PO; -CRD200 PO; -CYM/30 PO; -DOCU-94 PO; -FLM4 PO; -FRS/40 PO; -HYDR100T12 PO; -LEVA1.255 PO; -LUBI8CAP4 PO; -METH4PAK PO; -METO50TA7 PO; -MULT-506 PO; -NRN100 PO; -PANT1TAB48 PO; -PANT20TA PO; -POLY335019 PO; -POTA20TA13 PO; -PSEU60TA80 PO; -SIMV20TA2 PO; -SPRIN/30 PO; -XPNINS125 PO
[2016-12-23 11:57] VITALS: TEMP 36.7; Ht 177.8 cm; Wt 97.8 kg
[2016-12-23 12:50] LABS: URINE APPEARANCE CLEAR (CLEAR); URINE BILIRUBIN NEG (NEG); URINE COLOR YELLOW; URINE EPITHELIAL CELL AUTO 0-5 /lpf (0-5); URINE NITRITE NEG (NEG); URINE PH 7.5 (4.5-7.5); URINE SPECIFIC GRAVITY 1.009 (1.000-1.030); UROBILINOGEN NEG (NEG); ZZUR CULT IF INDIC CLEAN CATCH NO
[2016-12-23 12:57] LABS: MANUAL MICROSCOPIC REQUIRED? NO; REVIEW REQ? NO
--- NOTE | 2016-12-23 13:03 | DIAGNOSTIC IMAGING REPORT ---
SINGLE VIEW CHEST CLINICAL HISTORY: Change in mental status. Weakness. FINDINGS: An AP, portable, upright chest radiograph is compared to study dated 07/13/2016 and correlated with chest CT dated 07/16/2016. The examination is degraded by portable technique and patient rotation. The patient is status post midline sternotomy. The heart is mildly enlarged and there is atherosclerotic calcification of the thoracic aorta. There is mild pulmonary basilar congestion. There is chronic elevation right hemidiaphragm with bibasilar atelectasis. No large pleural effusion or pneumothorax Is seen. The skeletal structures are osteopenic. The bony thorax is grossly intact. IMPRESSION: 1. Cardiomegaly with mild pulmonary vascular congestion. 2. No airspace consolidation or large pleural effusion is seen. Electronically signed by: Song Chambers M.D. 12/23/2016 12:48 PM Dictated Date/Time: 12/23/2016 12:47 PM
[2016-12-23 13:21] LABS: BASO % 0.8 %; COMPLETE YES; EOS % 2.3 %; HEMATOCRIT 44.6 % (42-52); IG% 0.9 %; LYMPH % 15.9 %; LYMPH ABS # 1.99 K/uL (1.2-3.4); MEAN CORPUSCULAR HEMOGLOBIN 28.7 pg (25-34); MEAN CORPUSCULAR HGB CONC 31.2 g/dl (32-36); MEAN PLATELET VOLUME 10.2 fL (7.4-10.4); MONO % 8.9 %; NEUT % 71.2 %; PLATELET COUNT 237 K/uL (130-400); RED BLOOD COUNT 4.85 M/uL (4.7-6.1); WHITE BLOOD COUNT 12.52 K/uL (4.8-10.8)
[2016-12-23 13:22] LABS: PROTHROMBIN TIME (PATIENT) 10.9 SECONDS (9.0-12.0)
[2016-12-23 13:40] LABS: ALT/SGPT 8 U/L (12-78); BLOOD UREA NITROGEN 17 mg/dl (7-18); BUN/CREATININE RATIO 12.3 (10-20); CALCIUM 9.2 mg/dl (8.5-10.1); CARBON DIOXIDE 31 mmol/L (21-32); CHLORIDE 102 mmol/L (98-107); GLUCOSE 95 mg/dl (70-99); MAGNESIUM 2.3 mg/dl (1.8-2.4); POTASSIUM 3.9 mmol/L (3.5-5.1); SODIUM 139 mmol/L (136-145)
[2016-12-23 13:48] LABS: ALKALINE PHOSPHATASE 88 U/L (45-117); AST/SGOT 20 U/L (15-37); CKMB/CK RATIO 5.9 (0-3.0)
--- NOTE | 2016-12-23 14:31 | EMERGENCY ROOM VISIT NOTE ---
History Report prepared by Sherrie: Evie Osman Under the Supervision of: Mima HoldenO. First contact with patient: 12:17 Chief Complaint: REFERRED BY DOCTOR History of Present Illness The patient is a 66 year old male who presents to the Emergency Room with complaints of elevated white blood cell count. The patient was contacted today by the PCP because he had blood work on Thursday and his white blood cell count was elevated. Today's Thursday. The patient and his reports that the patient did have some sneezing and a slight cough over the past week or so. He also received a cortisone shot on . The patient denies any other significant symptoms. No chest pains, shortness of breath, abdominal pain or urinary symptoms. Source of History: patient Onset: today Position: other (global) Quality: other (elevated white blood cell count) Timing: other (elevated) Associated Symptoms: + cough, No chest pain, No SOB, No abdominal pain, No urinary symptoms Note: Associated symptoms: sneezing Review of Systems See HPI for pertinent positives & negatives. A total of 10 systems reviewed and were otherwise negative. Past Medical & Surgical Medical Problems: (1) Abscess in epidural space of lumbar spine (2) Acute on chronic diastolic (congestive) heart failure (3) Back pain (4) Bronchitis (5) Bulging disc (6) Chest wall pain (7) COPD (chronic obstructive pulmonary disease) (8) COPD exacerbation (9) Fall (10) Hallucinations (11) Heart disease (12) Hyperlipidemia (13) Hypertension (14) Hypoxia (15) inability to ambulate (16) Lumbar stenosis with neurogenic claudication (17) Parkinson disease (18) Parkinsons disease (19) Pneumonia involving right lung (20) Radicular pain of right lower extremity (21) Seizure-like activity (22) Shoulder pain Surgical Problems: (1) History of appendectomy (2) S/P CABG x 2 Family History FH: heart disease Hypertension Social History Smoking Status: Unknown if Ever Smoked Alcohol Use: none Drug Use: none Marital Status: Housing Status: assisted living Occupation Status: disabled Current/Historical Medications Scheduled Amiodarone HCl (Amiodarone HCl), 200 MG PO DAILY Amlodipine (Norvasc), 10 MG PO DAILY Aspirin (Aspirin Ec), 81 MG PO DAILY Carbidopa/Levodopa (Sinemet Cr 50MG/200MG), 2 TAB PO QID Cholecalciferol (Vitamin D3), 1 CAP PO DAILY Docusate Sodium (Colace), 1 CAP PO DAILY Duloxetine HCl (Cymbalta), 30 MG PO DAILY Fluticasone Prop/Salmeterol (Advair Diskus 250-50 Mcg/Dose), 1 PUFF INH Q12 Furosemide (Lasix), 20 MG PO DAILY Furosemide (Lasix), 40 MG PO DAILY Hydralazine Hcl (Apresoline), 1 TAB PO TID Ipratropium Imnaha (Ipratropium Imnaha), 0.5 MG INH Q6R Lubiprostone (Amitiza), 8 MCG PO DAILY Metoprolol Succ (Toprol Xl) (Toprol-Xl), 75 MG PO HS Multivitamin (Multivitamin), 1 TAB PO DAILY Pantoprazole (Protonix), 1 TAB PO DAILY Potassium Chloride (Klor-Con M20), 20 MEQ PO DAILY Pseudoephedrine-Guaifenesin (Mucinex D), 2 TAB PO BID Simvastatin (Zocor), 40 MG PO QPM Tamsulosin HCl (Tamsulosin HCl), 0.4 MG PO HS Scheduled PRN Ipratropium Imnaha (Ipratropium Imnaha), 0.5 MG INH Q2H PRN for Shortness of Breath Allergies Coded Allergies: BEE STING (Verified Allergy, Severe, ANAPHYLAXIS, 11/05/16) Triptans (Verified Allergy, Unknown, unknown, 11/05/16) Benztropine (Verified Adverse Reaction, Intermediate, hallucinations/ mental confusion, 11/05/16) Eletriptan (Verified Adverse Reaction, Intermediate, CONFUSION, 11/05/16) Ropinirole (Verified Adverse Reaction, Unknown, unknown, 11/05/16) Physical Exam Vital Signs Date Time Temp Pulse Resp B/P (MAP) Pulse Ox O2 Delivery O2 Flow Rate FiO2 12/23/16 15:01 66 20 142/67 95 Room Air 12/23/16 14:21 74 31 12/23/16 13:51 55 23 92 12/23/16 13:44 127/74 12/23/16 13:21 61 34 95 12/23/16 12:51 62 21 80 12/23/16 12:21 60 17 12/23/16 12:02 61 12/23/16 11:57 36.7 61 20 134/71 95 Room Air 12/23/16 11:56 134/71 Physical Exam CONSTITUTIONAL/VITAL SIGNS: Reviewed / noted above. GENERAL: Non-toxic in appearance. INTEGUMENTARY: Warm, dry, and [place]. HEAD: Normocephalic. EYES: without scleral icterus or trauma. ENT/OROPHARYNX: clear and moist. LYMPHADENOPATHY/NECK: Is supple without lymphadenopathy or meningismus. RESPIRATORY: Lungs clear and equal. CARDIOVASCULAR: Regular rate and rhythm. GI/ABDOMEN: Soft and nontender. No organomegaly or pulsatile mass. No rebound or guarding. Normal bowel sounds. EXTREMITIES: Warm and well perfused. BACK: No CVA tenderness. NEUROLOGICAL: Intact without focal deficits. PSYCHIATRIC: normal affect. MUSCULOSKELETAL: Normally developed with good muscle tone. TRIAGE NURSING DOCUMENTATION REVIEWED. Medical Decision & Procedures ER Provider Diagnostic Interpretation: X ray results and stated below per my interpretation and radiology interpretation. SINGLE VIEW CHEST CLINICAL HISTORY: Change in mental status. Weakness. FINDINGS: An AP, portable, upright chest radiograph is compared to study dated 07/13/2016 and correlated with chest CT dated 07/16/2016. The examination is degraded by portable technique and patient rotation. The patient is status post midline sternotomy. The heart is mildly enlarged and there is atherosclerotic calcification of the thoracic aorta. There is mild pulmonary basilar congestion. There is chronic elevation right hemidiaphragm with bibasilar atelectasis. No large pleural effusion or pneumothorax Is seen. The skeletal structures are osteopenic. The bony thorax is grossly intact. IMPRESSION: 1. Cardiomegaly with mild pulmonary vascular congestion. 2. No airspace consolidation or large pleural effusion is seen. Electronically signed by: Song Chambers M.D. 12/23/2016 12:48 PM Dictated Date/Time: 12/23/2016 12:47 PM Laboratory Results 12/23/16 12:55 Red Blood Count 4.85, Mean Corpuscular Volume 92.0, Mean Corpuscular Hemoglobin 28.7, Mean Corpuscular Hemoglobin Concent 31.2, Mean Platelet Volume 10.2, Neutrophils (%) (Auto) 71.2, Lymphocytes (%) (Auto) 15.9, Monocytes (%) (Auto) 8.9, Eosinophils (%) (Auto) 2.3, Basophils (%) (Auto) 0.8, Neutrophils # (Auto) 8.91, Lymphocytes # (Auto) 1.99, Monocytes # (Auto) 1.12, Eosinophils # (Auto) 0.29, Basophils # (Auto) 0.10 12/23/16 12:55 Test 12/23/16 12:25 12/23/16 12:55 Urine Color YELLOW Urine Appearance CLEAR (CLEAR) Urine pH 7.5 (4.5-7.5) Urine Specific Pierre 1.009 (1.000-1.030) Urine Protein NEG (NEG) Urine Glucose (UA) NEG (NEG) Urine Ketones NEG (NEG) Urine Occult Blood NEG (NEG) Urine Nitrite NEG (NEG) Urine Bilirubin NEG (NEG) Urine Urobilinogen NEG (NEG) Urine Leukocyte Esterase NEG (NEG) Urine WBC (Auto) 0 /hpf (0-5) Urine RBC (Auto) 0-4 /hpf (0-4) Urine Hyaline Casts (Auto) 1-5 /lpf (0-5) Urine Epithelial Cells (Auto) 0-5 /lpf (0-5) Urine Bacteria (Auto) NEG (NEG) White Blood Count 12.52 K/uL (4.8-10.8) Red Blood Count 4.85 M/uL (4.7-6.1) Hemoglobin 13.9 g/dL (14.0-18.0) Hematocrit 44.6 % (42-52) Mean Corpuscular Volume 92.0 fL (80-100) Mean Corpuscular Hemoglobin 28.7 pg (25-34) Mean Corpuscular Hemoglobin Concent 31.2 g/dl (32-36) Platelet Count 237 K/uL (130-400) Mean Platelet Volume 10.2 fL (7.4-10.4) Neutrophils (%) (Auto) 71.2 % Lymphocytes (%) (Auto) 15.9 % Monocytes (%) (Auto) 8.9 % Eosinophils (%) (Auto) 2.3 % Basophils (%) (Auto) 0.8 % Neutrophils # (Auto) 8.91 K/uL (1.4-6.5) Lymphocytes # (Auto) 1.99 K/uL (1.2-3.4) Monocytes # (Auto) 1.12 K/uL (0.11-0.59) Eosinophils # (Auto) 0.29 K/uL (0-0.5) Basophils # (Auto) 0.10 K/uL (0-0.2) RDW Standard Deviation 63.0 fL (36.4-46.3) RDW Coefficient of Variation 18.7 % (11.5-14.5) Immature Granulocyte % (Auto) 0.9 % Immature Granulocyte # (Auto) 0.11 K/uL (0.00-0.02) Prothrombin Time 10.9 SECONDS (9.0-12.0) Prothromb Time International Ratio 1.0 (0.9-1.1) Activated Partial Thromboplast Time 26.9 SECONDS (21.0-31.0) Partial Thromboplastin Ratio 1.0 Anion Gap 6.0 mmol/L (3-11) Est Creatinine Clear Calc Drug Dose 59.2 ml/min Estimated GFR () 59.4 Estimated GFR (Non- 51.3 BUN/Creatinine Ratio 12.3 (10-20) Calcium Level 9.2 mg/dl (8.5-10.1) Magnesium Level 2.3 mg/dl (1.8-2.4) Total Bilirubin 0.5 mg/dl (0.2-1) Direct Bilirubin 0.2 mg/dl (0-0.2) Aspartate Amino Transf (AST/SGOT) 20 U/L (15-37) Alanine Aminotransferase (ALT/SGPT) 8 U/L (12-78) Alkaline Phosphatase 88 U/L (45-117) Total Creatine Kinase 34 U/L (39-308) Creatine Kinase MB 2.0 ng/ml (0.5-3.6) Creatine Kinase MB Ratio 5.9 (0-3.0) Troponin I < 0.015 ng/ml (0-0.045) Total Protein 7.6 gm/dl (6.4-8.2) Albumin 3.4 gm/dl (3.4-5.0) Lipase 188 U/L (73-393) Thyroid Stimulating Hormone (TSH) 1.820 uIu/ml (0.300-4.500) Laboratory results as stated above per my review. ECG Indication: other (abnormal labs) Rate (beats per minute): 60 Rhythm: normal sinus Findings: no acute ischemic change, no ectopy ED Course 1224: Previous medical records were reviewed. The patient was evaluated in room B8. A complete history and physical examination was performed. 1433: I reevaluated the patient and he is resting comfortably. I discussed the exam findings with him and I discussed the treatment plan. He verbalized complete understanding and agreement. He is ready to go home. Medical Decision Differential includes acute coronary syndrome, myocardial infarction, CVA, TIA, anemia, infection, pneumonia, UTI, pyelonephritis, poor nutrition, dehydration, electrolyte disturbance,hypoglycemia. The patient is a 66 year old male who presents to the Emergency Room with complaints of elevated white blood cell count. The patient was contacted today by the PCP because he had blood work on Thursday and his white blood cell count was elevated. Today's Thursday. The patient and his reports that the patient did have some sneezing and a slight cough over the past week or so. He also received a cortisone shot on . The patient denies any other significant symptoms. His physical exam was unremarkable. His vital signs are stable. He is afebrile. The white blood cell count is 12.5. Complete metabolic panel was normal, troponin is negative, urine did not show infection, chest x-ray was negative for acute infectious process. EKG shows a normal sinus rhythm. The patient was told the results of the test. The patient is felt to be stable for discharge and outpatient follow-up. The elevation of the white blood cell count was likely related to the cortisone injection that was provided in the shoulder by the orthopedist last week. There is no sign of infection based on exam and objective testing. The leukocytosis has actually improved since Thursday. Medication Reconcilliation Current Medication List: was personally reviewed by me Blood Pressure Screening Patient's blood pressure: Elevated blood pressure Blood pressure disposition: Referred to PCP Impression Primary Impression: Leukocytosis Scribe Attestation The scribe's documentation has been prepared under my direction and personally reviewed by me in its entirety. I confirm that the note above accurately reflects all work, treatment, procedures, and medical decision making performed by me. Departure Information Dispostion Home / Self-Care Referrals Jeromy Hanson M.D. (PCP) Forms HOME CARE DOCUMENTATION FORM, IMPORTANT VISIT INFORMATION, WORK / SCHOOL INSTRUCTIONS Patient Instructions My [facility] Additional Instructions Follow-up with your doctor for further care and evaluation in 1-2 days. Return to the emergency department for worsening or new symptoms or any concerns. You have been examined and treated today on an emergency basis only. This is not a substitute for, or an effort to provide, complete comprehensive medical care. It is impossible to recognize and treat all injuries or illnesses in a single emergency department visit. It is therefore important that you follow up closely with your doctor. Call as soon as possible for an appointment.
[2016-12-23 15:01] VITALS: BP 142/67; PULSE 66; O2SAT 95
[2017-01-07] MEDS ORDERED: SIMV20TA2 PO (06:30)
[2017-01-07] MEDS ORDERED: METO50TA7 PO (06:43)
[2017-01-07] MEDS ORDERED: DOCU-94 PO (12:41)
[2017-01-07] MEDS ORDERED: PSEU60TA80 PO (12:53)
[2017-01-07] MEDS ORDERED: MULT-506 PO (12:55)
[2017-01-07] MEDS ORDERED: PANT1TAB48 PO (12:55)
[2017-01-07] MEDS ORDERED: FRS/40 PO (13:09)
[2017-01-07] MEDS ORDERED: CARB50TA3 PO (13:14)
[2017-01-07] MEDS ORDERED: HYDR100T12 PO (15:21)
[2017-01-07] MEDS ORDERED: ASPI81TA28 PO (16:17)
[2017-01-07] MEDS ORDERED: CHOL2000 PO (16:33)
== END 2016-12-23 15:06 | disposition home or self-care (01) ==
LOC: EDBD 11:51 → C.EDB 11:52
DX: D72.829 Elevated white blood cell count, unspecified (principal); I11.0 Hypertensive heart disease with heart failure; I50.32 Chronic diastolic (congestive) heart failure; J44.9 Chronic obstructive pulmonary disease, unspecified; E78.5 Hyperlipidemia, unspecified; G20 Parkinson's disease; Z87.01 Personal history of pneumonia (recurrent); Z95.1 Presence of aortocoronary bypass graft; Z82.49 Family history of ischemic heart disease and other diseases of the circulatory system; Z79.82 Long term (current) use of aspirin; Z79.899 Other long term (current) drug therapy

== ENCOUNTER 2017-01-07 16:58 | Emergency (ER) | payer OTHER ==
[~2017-01-07] VITALS: Ht 177.8 cm; Wt 98.0 kg
[~2017-01-07 16:58] MED LIST changes: +ASPI81TA28 PO; +CARB50TA3 PO; +CHOL2000 PO; +DOCU-94 PO; +FRS/40 PO; +HYDR100T12 PO; +METO50TA7 PO; +MULT-506 PO; +PANT1TAB48 PO; +PSEU60TA80 PO; +SIMV20TA2 PO
[2017-01-07 17:15] VITALS: TEMP 37.5; O2SAT 90; Ht 177.8 cm; Wt 98.0 kg
[2017-01-07] MEDS ORDERED: SODIUM CHLORIDE 0.9% 500ML 500 ML IV STA (17:18)
[2017-01-07] MEDS ORDERED: ACETAMINOPHEN 500 MG TAB PO STA (17:18)
[2017-01-07] MEDS ORDERED: KETOROLAC TROMETHAMINE 30 MG/ML VIAL IV STA (17:18)
[2017-01-07] MEDS ORDERED: MoRPHine SULFATE 10 MG/ML CARP/VIAL IV STA (17:18)
--- NOTE | 2017-01-07 17:29 | EMERGENCY ROOM VISIT NOTE ---
History Report prepared by Sherrie: Malu Sauceda Under the Supervision of: Dr. Fausto Dunne M.D. First contact with patient: 16:57 Chief Complaint: HIP PAIN Stated Complaint: HIP PAIN History of Present Illness The patient is a 66 year old white male with a past medical history of back surgery, CABG x 2, MRSA, tremor who presents to the ED with a cc of worsening lower back pain beginning several days ago. Positive productive cough, headache , left leg pain, numbness. Negative fall, urinary symptoms, change in bowel movement. Patient is on aspirin. He is not on Plavix or Coumadin. He does smoke. He denies alcohol use. He is able to ambulate using a walker normally. He was started on gabapentin recently. Source of History: patient, spouse/significant other Onset: several days ago Position: back (lower) Quality: other (pain) Timing: worsening Associated Symptoms: + headache, + cough, + numbness, No melena, No hematochezia, No diarrhea, No urinary symptoms Note: Pt reports left leg pain. Review of Systems See HPI for pertinent positives and negatives. A total of ten systems were reviewed and were otherwise negative. Past Medical & Surgical Medical Problems: (1) Abscess in epidural space of lumbar spine (2) Acute on chronic diastolic (congestive) heart failure (3) Back pain (4) Bronchitis (5) Bulging disc (6) Chest wall pain (7) COPD (chronic obstructive pulmonary disease) (8) COPD exacerbation (9) Fall (10) Hallucinations (11) Heart disease (12) Hyperlipidemia (13) Hypertension (14) Hypoxia (15) inability to ambulate (16) Lumbar stenosis with neurogenic claudication (17) Parkinson disease (18) Parkinsons disease (19) Pneumonia involving right lung (20) Radicular pain of right lower extremity (21) Seizure-like activity (22) Shoulder pain Surgical Problems: (1) History of appendectomy (2) S/P CABG x 2 Family History FH: heart disease Hypertension Social History Smoking Status: Unknown if Ever Smoked Alcohol Use: none Drug Use: none Marital Status: Housing Status: assisted living Occupation Status: disabled Current/Historical Medications Scheduled Amiodarone HCl (Amiodarone HCl), 200 MG PO DAILY Amlodipine (Norvasc), 10 MG PO DAILY Aspirin (Aspirin Ec), 81 MG PO DAILY Carbidopa/Levodopa (Sinemet Cr 50MG/200MG), 2 TAB PO QID Cholecalciferol (Vitamin D3), 1 CAP PO DAILY Desloratadine (Clarinex), 5 MG PO DAILY Docusate Sodium (Colace), 1 CAP PO BID Duloxetine HCl (Cymbalta), 30 MG PO DAILY Fluticasone Prop/Salmeterol (Advair Diskus 250-50 Mcg/Dose), 1 PUFF INH Q12 Furosemide (Lasix), 40 MG PO DAILY Gabapentin (Gabapentin), 100 MG PO TID Hydralazine Hcl (Apresoline), 1 TAB PO TID Levalbuterol (Levalbuterol HCl), 1.25 MG PO Q6 Lubiprostone (Amitiza), 8 MCG PO DAILY Methylprednisolone (Medrol Dosepak), 1 PKT PO UD Metoprolol Succ (Toprol Xl) (Toprol-Xl), 75 MG PO HS Multivitamin (Multivitamin), 1 TAB PO DAILY Pantoprazole Sodium (Protonix), 20 MG PO DAILY Polyethylene Glycol 3350 (Miralax), 17 GM PO DAILY Potassium Chloride Microencaps (Potassium Chloride Er), 40 MEQ PO QAM Pseudoephedrine-Guaifenesin (Mucinex D), 2 TAB PO BID Simvastatin (Zocor), 40 MG PO QPM Tamsulosin HCl (Tamsulosin HCl), 0.4 MG PO HS Tiotropium [place] (Spiriva Handihaler), 1 CAP PO DAILY Scheduled PRN Levalbuterol Hcl (Levalbuterol), 1.25 MG PO Q2H PRN for SOB/Wheezing Allergies Coded Allergies: BEE STING (Verified Allergy, Severe, ANAPHYLAXIS, 11/05/16) Triptans (Verified Allergy, Unknown, unknown, 11/05/16) Benztropine (Verified Adverse Reaction, Intermediate, hallucinations/ mental confusion, 11/05/16) Eletriptan (Verified Adverse Reaction, Intermediate, CONFUSION, 11/05/16) Ropinirole (Verified Adverse Reaction, Unknown, unknown, 11/05/16) Physical Exam Vital Signs Date Time Temp Pulse Resp B/P (MAP) Pulse Ox O2 Delivery O2 Flow Rate FiO2 01/07/17 20:54 74 123/55 96 01/07/17 20:39 72 95 01/07/17 20:24 71 96 01/07/17 20:09 74 96 01/07/17 19:54 76 96 01/07/17 19:48 82 22 96 Nasal Cannula 2.0 01/07/17 19:45 25 89 Room Air 01/07/17 19:24 78 25 01/07/17 19:19 76 127/68 96 Nasal Cannula 2.0 01/07/17 18:45 80 25 01/07/17 17:46 87 01/07/17 17:15 90 Room Air 01/07/17 17:15 37.5 87 22 149/62 90 Room Air Physical Exam GENERAL: Awake, alert, bilateral UE tremor, NAD HENT: Normocephalic, atraumatic. EYES: Normal conjunctiva. Sclera non-icteric. NECK: Supple. No nuchal rigidity. FROM. RESPIRATORY: CTAB, no rhonchi, wheezing, crackles CARDIAC: RRR, no MRG ABDOMEN: Soft, NTND, BS+ MSK: No chest wall TTP, no LE edema, mild reproducible low mid and left lumbar pain, positive SLR on the left, negative on the right. NEURO: GCS 15, CN 2-12 intact, moves all 4s on command, no saddle anesthesia, no numbness or tingling distally, SP/DP/tib nerve intact to sensation and motor , able to flex and extend at hip, knee, ankle. SKIN: No rash or jaundice noted. Medical Decision & Procedures ER Provider Diagnostic Interpretation: Radiology results as stated below per my review and radiologist interpretation: LEFT PELVIS/UNILATERAL HIP 2-3VIEWS CLINICAL HISTORY: Left lower back pain. Left hip pain. COMPARISON: Pelvis and hip radiographs March 31, 2016. FINDINGS: Lumbar spine fusion hardware is better depicted on the lumbar spine radiographs. No acute fracture is identified within the pelvis or the hips. There is moderate joint space narrowing and osteophytosis of both hips. No osseous lesion is identified on this exam. IMPRESSION: 1. No acute fracture within the pelvis or hips. 2. Moderate osteoarthritis of the hips. Electronically signed by: Gerald Emerson M.D. 01/07/2017 7:18 PM Dictated Date/Time: 01/07/2017 7:13 PM LUMBAR SPINE 2 OR 3 VIEWS CLINICAL HISTORY: Lumbar spine pain COMPARISON STUDY: CT scan dated 08/31/2015 FINDINGS: There is moderate fecal retention. There are postsurgical changes of an L4-5 spinal fusion. There is lucency surrounding the L4 pedicle screws, and hardware loosening must be considered. There are multilevel degenerative changes. There are no acute fractures or subluxations. IMPRESSION: 1. No acute fractures or subluxations 2. Lucency surrounding the L4 pedicle screws. This could indicate hardware loosening 3. Fecal retention 4. Cholelithiasis Electronically signed by: Adrien Jean M.D. 01/07/2017 7:17 PM Dictated Date/Time: 01/07/2017 7:14 PM Laboratory Results 01/07/17 17:56 Red Blood Count 4.23, Mean Corpuscular Volume 92.2, Mean Corpuscular Hemoglobin 29.3, Mean Corpuscular Hemoglobin Concent 31.8, Mean Platelet Volume 10.5, Neutrophils (%) (Auto) 74.5, Lymphocytes (%) (Auto) 11.1, Monocytes (%) (Auto) 12.8, Eosinophils (%) (Auto) 0.4, Basophils (%) (Auto) 0.5, Neutrophils # (Auto ) 13.12, Lymphocytes # (Auto) 1.95, Monocytes # (Auto) 2.26, Eosinophils # (Auto ) 0.07, Basophils # (Auto) 0.08 01/07/17 17:56 Test 01/07/17 17:56 01/07/17 18:10 White Blood Count 17.61 K/uL (4.8-10.8) Red Blood Count 4.23 M/uL (4.7-6.1) Hemoglobin 12.4 g/dL (14.0-18.0) Hematocrit 39.0 % (42-52) Mean Corpuscular Volume 92.2 fL (80-100) Mean Corpuscular Hemoglobin 29.3 pg (25-34) Mean Corpuscular Hemoglobin Concent 31.8 g/dl (32-36) Platelet Count 190 K/uL (130-400) Mean Platelet Volume 10.5 fL (7.4-10.4) Neutrophils (%) (Auto) 74.5 % Lymphocytes (%) (Auto) 11.1 % Monocytes (%) (Auto) 12.8 % Eosinophils (%) (Auto) 0.4 % Basophils (%) (Auto) 0.5 % Neutrophils # (Auto) 13.12 K/uL (1.4-6.5) Lymphocytes # (Auto) 1.95 K/uL (1.2-3.4) Monocytes # (Auto) 2.26 K/uL (0.11-0.59) Eosinophils # (Auto) 0.07 K/uL (0-0.5) Basophils # (Auto) 0.08 K/uL (0-0.2) RDW Standard Deviation 62.1 fL (36.4-46.3) RDW Coefficient of Variation 18.3 % (11.5-14.5) Immature Granulocyte % (Auto) 0.7 % Immature Granulocyte # (Auto) 0.13 K/uL (0.00-0.02) Erythrocyte Sedimentation Rate 32 mm/hr (0-14) Prothrombin Time 11.4 SECONDS (9.0-12.0) Prothromb Time International Ratio 1.1 (0.9-1.1) Activated Partial Thromboplast Time 30.8 SECONDS (21.0-31.0) Partial Thromboplastin Ratio 1.2 Anion Gap 5.0 mmol/L (3-11) Est Creatinine Clear Calc Drug Dose 59.3 ml/min Estimated GFR () 59.4 Estimated GFR (Non- 51.3 BUN/Creatinine Ratio 11.5 (10-20) Calcium Level 8.8 mg/dl (8.5-10.1) C-Reactive Protein 16.40 mg/dl (0-0.29) Urine Color YELLOW Urine Appearance CLEAR (CLEAR) Urine pH 5.0 (4.5-7.5) Urine Specific [place] 1.017 (1.000-1.030) Urine Protein NEG (NEG) Urine Glucose (UA) NEG (NEG) Urine Ketones NEG (NEG) Urine Occult Blood NEG (NEG) Urine Nitrite NEG (NEG) Urine Bilirubin NEG (NEG) Urine Urobilinogen NEG (NEG) Urine Leukocyte Esterase NEG (NEG) Laboratory results reviewed by me Medications Administered Medications (Trade) Dose Ordered Sig/Igor Route Start Time Stop Time Status Last Admin Dose Admin Acetaminophen (Tylenol Tab) 1,000 mg NOW STAT PO 01/07/17 17:18 01/07/17 17:21 DC 01/07/17 18:06 1,000 MG Sodium Chloride 500 ml @ 500 mls/hr Q1H STAT IV 9/20/17 17:18 01/07/17 18:17 DC 01/07/17 18:05 500 MLS/HR Morphine Sulfate (MoRPHine SULFATE INJ) 6 mg NOW STAT IV 01/07/17 17:18 01/07/17 17:21 DC 01/07/17 18:05 6 MG Dexamethasone Sodium Phosphate (Decadron Inj) 10 mg NOW ONCE IV 01/07/17 17:30 01/07/17 17:31 DC 01/07/17 18:06 10 MG Ketorolac Tromethamine (Toradol Inj) 30 mg NOW STAT IV 01/07/17 17:18 01/07/17 17:21 DC 01/07/17 18:05 30 MG ECG Indication: back/shoulder pain Rate (beats per minute): 87 Rhythm: sinus rhythm Findings: PVC, Q waves (Inferior), prolonged QT, other (no other STS changes or TWI) ED Course 1703: The patient was evaluated in room A11B. A complete history and physical exam was performed. 2054: I reevaluated the patient. I discussed results and discharge instructions : he verbalized understanding and agreement. The patient is ready for discharge. Medical Decision Differential diagnosis: Etiologies such as musculoskeletal, disc herniation, fracture, aortic disease, metastatic disease, cord compression, discitis, infection, renal colic, gastrointestinal, acute exacerbation of chronic back pain, sciatica, cauda equina, as well as others were entertained. The patient is a 66 year old white male with a past medical history of back surgery, CABG x 2, MRSA, tremor who presents to the ED with a cc of worsening lower back pain beginning several days ago. Patient was seen and evaluated at the bedside. Upon assessment of the patient patient Diamond denied having any numbness or tingling at this time. Patient did have a prior history of an L4-L5 decompression laminectomy secondary to spinal stenosis. Patient purportedly also had a history of an epidural abscess. Patient denied any fevers or chills not have any unexplained weight loss no history of diabetes and no IV drug abuse. Patient did have lab work as well as plain films were completed. Patient did have elevations in his inflammatory markers. Patient had presented earlier in the month with similar blood work however once is repeated and this was fairly benign. Patient was feeling much improved pain and resolved. Patient was able to ambulate at about his baseline which unfortunately is mildly complicated secondary to his history of Parkinson' s. Patient's pain was very well improved. Patient denied any saddle anesthesia or bowel or bladder incontinence. Patient's UA was negative for infection. Patient and family were told to continue symptomatic treatment as well as to follow up with her spinal surgeon and possibly obtain an earlier appointment. Patient was told to return if he had any weakness fevers chills. Medication Reconcilliation Current Medication List: was personally reviewed by me Blood Pressure Screening Patient's blood pressure: Normal blood pressure Blood pressure disposition: Did not require urgent referral Impression Primary Impression: Back pain Additional Impressions: Sciatica Encounter for smoking cessation counseling Scribe Attestation The scribe's documentation has been prepared under my direction and personally reviewed by me in its entirety. I confirm that the note above accurately reflects all work, treatment, procedures, and medical decision making performed by me. Departure Information Dispostion Home / Self-Care Prescriptions Methylprednisolone (MEDROL DOSEPAK) 4 Mg Lul 1 PKT PO UD for 6 Days, #1 PKT Prov: Fausto Dunne M.D. 01/07/17 Referrals Jeromy Hanson M.D. (PCP) Patient Instructions ED Sciatica, My [facility] Additional Instructions Please return to the emergency department if you have worsening or recurrent symptoms not amenable to at-home treatment. Please call for a follow-up appointment with her primary care physician. Please take your medications as prescribed. If you have other concerns and/or complaints please feel free to also call your primary care physician's office or return the ED for further evaluation, management, and treatment. You were found to have an elevated blood pressure today (>120 sytolic or >90 diastolic). Per medicare guidelines, you need to follow up with this blood pressure screening with your Primary Care Physician (PCP). For a new PCP call [phone]. You received narcotic or benzodiazepene medication while in the emergency room today. This is an addictive medication that may cause drowziness as well as constipation. Do not drive, operate heavy machinery, or drink alcohol under the influence of this medication. You may take 600 mg Ibuprofen every 6 hours as needed for pain with food for no more than 2 consecutive days. You may take tylenol 1000mg every 6 hours as needed for pain. You may take motrin and tylenol separately or at the same time. Take steroids w/ food and in morning. Please obtain follow up appointment w/ your spinal surgeon. You have been examined and treated today on an emergency basis only. This is not a substitute for, or an effort to provide, complete comprehensive medical care. It is impossible to recognize and treat all injuries or illnesses in a single emergency department visit. It is therefore important that you follow up closely with [facility]. Call as soon as possible for an appointment. Thank you for your time and consideration. I look forward to speaking with you again soon. Please don't hesitate to call us if you have any questions. Problem Qualifiers Primary Impression: Back pain Back pain location: low back pain Chronicity: unspecified Back pain laterality: left Sciatica presence: with sciatica Sciatica laterality: sciatica of left side Qualified Codes: M54.42 - Lumbago with sciatica, left side Additional Impressions: Sciatica Laterality: left Qualified Codes: M54.32 - Sciatica, left side
[2017-01-07] MEDS ORDERED: DEXAMETHASONE SOD INJ 10 MG/ML VIAL IV ONE (17:30)
[2017-01-07 18:06] LABS: BASO % 0.5 %; BASO ABS # 0.08 K/uL (0-0.2); COMPLETE YES; EOS % 0.4 %; IG% 0.7 %; LYMPH % 11.1 %; LYMPH ABS # 1.95 K/uL (1.2-3.4); MEAN CELL VOLUME 92.2 fL (80-100); MEAN CORPUSCULAR HEMOGLOBIN 29.3 pg (25-34); MEAN CORPUSCULAR HGB CONC 31.8 g/dl (32-36); MEAN PLATELET VOLUME 10.5 fL (7.4-10.4); MONO % 12.8 %; NEUT % 74.5 %; PLATELET COUNT 190 K/uL (130-400); RED BLOOD COUNT 4.23 M/uL (4.7-6.1); WHITE BLOOD COUNT 17.61 K/uL (4.8-10.8)
[2017-01-07 18:25] LABS: INR 1.1 (0.9-1.1); PARTIAL THROMBOPLASTIN RATIO 1.2; PROTHROMBIN TIME (PATIENT) 11.4 SECONDS (9.0-12.0)
[2017-01-07 18:26] LABS: BUN/CREATININE RATIO 11.5 (10-20); C-REACTIVE PROTEIN 16.4 mg/dl (0-0.29); CALCIUM 8.8 mg/dl (8.5-10.1); CREATININE 1.4 mg/dl (0.60-1.40); POTASSIUM 3.4 mmol/L (3.5-5.1)
[2017-01-07] MEDS ORDERED: POTA20TA13 PO (18:28)
[2017-01-07] MEDS ORDERED: SPRIN/30 PO (18:28)
[2017-01-07] MEDS ORDERED: NRN100 PO (18:28)
[2017-01-07] MEDS ORDERED: XPNINS125 PO (18:28)
[2017-01-07] MEDS ORDERED: CLR/5 PO (18:28)
[2017-01-07] MEDS ORDERED: LEVA1.255 PO (18:28)
[2017-01-07] MEDS ORDERED: POLY335019 PO (18:28)
[2017-01-07] MEDS ORDERED: PANT20TA PO (18:31)
[2017-01-07 18:33] LABS: MANUAL MICROSCOPIC REQUIRED? NO; REVIEW REQ? NO; URINE APPEARANCE CLEAR (CLEAR); URINE BILIRUBIN NEG (NEG); URINE COLOR YELLOW; URINE NITRITE NEG (NEG); URINE SPECIFIC GRAVITY 1.017 (1.000-1.030); UROBILINOGEN NEG (NEG)
--- NOTE | 2017-01-07 19:18 | DIAGNOSTIC IMAGING REPORT ---
LUMBAR SPINE 2 OR 3 VIEWS CLINICAL HISTORY: Lumbar spine pain COMPARISON STUDY: CT scan dated 08/31/2015 FINDINGS: There is moderate fecal retention. There are postsurgical changes of an L4-5 spinal fusion. There is lucency surrounding the L4 pedicle screws, and hardware loosening must be considered. There are multilevel degenerative changes. There are no acute fractures or subluxations. IMPRESSION: 1. No acute fractures or subluxations 2. Lucency surrounding the L4 pedicle screws. This could indicate hardware loosening 3. Fecal retention 4. Cholelithiasis Electronically signed by: Adrien Jean M.D. 01/07/2017 7:17 PM Dictated Date/Time: 01/07/2017 7:14 PM
--- NOTE | 2017-01-07 19:20 | DIAGNOSTIC IMAGING REPORT ---
LEFT PELVIS/UNILATERAL HIP 2-3VIEWS CLINICAL HISTORY: Left lower back pain. Left hip pain. COMPARISON: Pelvis and hip radiographs March 31, 2016. FINDINGS: Lumbar spine fusion hardware is better depicted on the lumbar spine radiographs. No acute fracture is identified within the pelvis or the hips. There is moderate joint space narrowing and osteophytosis of both hips. No osseous lesion is identified on this exam. IMPRESSION: 1. No acute fracture within the pelvis or hips. 2. Moderate osteoarthritis of the hips. Electronically signed by: Gerald Emerson M.D. 01/07/2017 7:18 PM Dictated Date/Time: 01/07/2017 7:13 PM
[2017-01-07] MEDS ORDERED: ADVIN25050 INH (19:59)
[2017-01-07] MEDS ORDERED: METH4PAK PO (20:18)
[2017-01-07 20:54] VITALS: BP 123/55; PULSE 74; O2SAT 96
[2017-01-07] MEDS ORDERED: CRD200 PO (21:27)
[2017-01-07] MEDS ORDERED: FLM4 PO (21:40)
[2017-01-07] MEDS ORDERED: AMLO-114 PO (23:37)
[2017-01-07] MEDS ORDERED: CYM/30 PO (23:39)
[2017-01-07] MEDS ORDERED: LUBI8CAP4 PO (23:41)
== END 2017-01-07 21:05 | disposition home or self-care (01) ==
LOC: EDBD 16:58 → C.EDA 16:59
DX: M54.42 Lumbago with sciatica, left side (principal); Z71.6 Tobacco abuse counseling; F17.200 Nicotine dependence, unspecified, uncomplicated; G20 Parkinson's disease; J44.9 Chronic obstructive pulmonary disease, unspecified; E78.5 Hyperlipidemia, unspecified; I10 Essential (primary) hypertension; M48.06 Spinal stenosis, lumbar region; Z95.1 Presence of aortocoronary bypass graft; Z86.14 Personal history of Methicillin resistant Staphylococcus aureus infection; Z79.82 Long term (current) use of aspirin; Z82.49 Family history of ischemic heart disease and other diseases of the circulatory system

== ENCOUNTER → 2017-01-23 | Outpatient (CLI) | payer OTHER ==
[~2017-01-23] MED LIST changes: +ADVIN25050 INH; +AMLO-114 PO; -ATRINS INH; +CLR/5 PO; +CRD200 PO; +CYM/30 PO; +FLM4 PO; -FURO-85 PO; +LEVA1.255 PO; +LUBI8CAP4 PO; -MCRK20 PO; +NRN100 PO; +OPTIRAY 320 IV PRN; -PANT1TAB48 PO; +PANT20TA PO; +POLY335019 PO; +POTA20TA13 PO; +SPRIN/30 PO; +XPNINS125 PO
--- NOTE | 2017-01-23 13:35 | DIAGNOSTIC IMAGING REPORT ---
CT OF THE CHEST WITH IV CONTRAST CLINICAL HISTORY: Pulmonary nodule follow-up. COMPARISON STUDY: Chest CT April 18, 2014 and July 16, 2016 and chest radiograph December 23, 2016. TECHNIQUE: Following IV administration of 92 mL of Optiray-320, helical axial images of the chest were obtained. Sagittal and coronal reconstructions were viewed as well as maximal intensity projections on an independent 3-D workstation. A dose lowering technique was utilized adhering to the principles of ALARA. CT DOSE: 614.46 mGy.cm FINDINGS: There are median sternotomy wires and postsurgical findings consistent with bypass grafting. The heart is moderately enlarged. There is no pericardial effusion. No enlarged axillary, mediastinal or hilar lymph nodes are present. There is no consolidation to suggest pneumonia. The bilateral opacity shown on exam of July 16, 2016 have essentially resolved. Mild bronchial wall thickening is noted. Lungs are suboptimally assessed due to respiratory motion. There is mild emphysema. There are no suspicious pulmonary nodules. No suspicious osseous lesions are noted within the bony thorax. There are gallstones within the gallbladder. 2 right renal cysts are noted. A 1.1 cm lesion within the midpole of the left kidney was shown to previously reflect a hyperdense cyst. Left adrenal nodularity is stable and benign. IMPRESSION: 1. No suspicious pulmonary nodules. 2. Resolution of the bilateral airspace opacities shown on prior CT of July 16, 2016. 3. Mild emphysema. 4. Moderate cardiomegaly. 5. Cholelithiasis. Electronically signed by: Gerald Emerson M.D. 01/23/2017 1:34 PM Dictated Date/Time: 01/23/2017 1:21 PM
== END | disposition home or self-care (01) ==
LOC: C.CTS 11:27
PROVIDERS: ATTEND Internal Medicine
DX: R91.1 Solitary pulmonary nodule (principal)

== ENCOUNTER 2017-03-02 12:06 | Inpatient (IN) | payer OTHER ==
[~2017-03-02] VITALS: Ht 177.8 cm; Wt 95.8 kg
[~2017-03-02 12:06] MED LIST changes: -OPTIRAY 320 IV PRN; -PANT20TA PO; +PANT20TA2 PO
[2017-03-02] MEDS ORDERED: METHYLPREDNISOLONE 125 MG VIAL IV STA (12:37)
[2017-03-02] MEDS ORDERED: ALBUT/IPRATROP 3MG/0.5MG NEB 3 ML VIAL INH ONE (12:45)
[2017-03-02 12:58] LABS: BASO % 1.1 %; BASO ABS # 0.13 K/uL (0-0.2); COMPLETE YES; EOS % 2.8 %; HEMATOCRIT 41.7 % (42-52); IG% 0.6 %; LYMPH % 16.8 %; LYMPH ABS # 2.01 K/uL (1.2-3.4); MEAN CELL VOLUME 95.6 fL (80-100); MEAN CORPUSCULAR HEMOGLOBIN 30.7 pg (25-34); MEAN CORPUSCULAR HGB CONC 32.1 g/dl (32-36); MEAN PLATELET VOLUME 10.7 fL (7.4-10.4); NEUT % 68.7 %; PLATELET COUNT 205 K/uL (130-400); RED BLOOD COUNT 4.36 M/uL (4.7-6.1); WHITE BLOOD COUNT 11.94 K/uL (4.8-10.8)
[2017-03-02 13:00] LABS: BLOOD UREA NITROGEN 13 mg/dl (7-18); BUN/CREATININE RATIO 9.6 (10-20); CALCIUM 9.1 mg/dl (8.5-10.1); CARBON DIOXIDE 29 mmol/L (21-32); CHLORIDE 99 mmol/L (98-107); CREATININE 1.32 mg/dl (0.60-1.40); GLUCOSE 96 mg/dl (70-99); MAGNESIUM 2.1 mg/dl (1.8-2.4); POTASSIUM 3.5 mmol/L (3.5-5.1); SODIUM 139 mmol/L (136-145)
--- NOTE | 2017-03-02 13:09 | DIAGNOSTIC IMAGING REPORT ---
CHEST ONE VIEW PORTABLE CLINICAL HISTORY: Atypical chest pain COMPARISON STUDY: 12/23/2016 FINDINGS: The cardiac and mediastinal contours remain stable. There are postsurgical changes of a midline sternotomy. The heart is mildly enlarged. There is diffuse interstitial thickening similar to the prior study. Correlation in regards to mild congestive failure is recommended.[ IMPRESSION: Stable mild interstitial thickening/edema. No evidence of focal pulmonary consolidation Electronically signed by: Adrien Jean M.D. 03/02/2017 1:08 PM Dictated Date/Time: 03/02/2017 1:06 PM
[2017-03-02 13:14] VITALS: PULSE 67; O2SAT 99
[2017-03-02] MEDS ORDERED: IPRASOL4 INH (13:20)
[2017-03-02 13:27] LABS: CKMB/CK RATIO 1.1 (0-3.0)
--- NOTE | 2017-03-02 13:52 | EMERGENCY ROOM VISIT NOTE ---
History Report prepared by Chrissyibyonas: Mateo Mckeon Under the Supervision of: Dr. Mayur Mercado M.D. First contact with patient: 12:29 Chief Complaint: CHEST PAIN Stated Complaint: CHEST PAIN Nursing Triage Summary: Patient presents ALS with CP for a couple of weeks. Patient with hx of quadruple bypass. Patient has had a cough for several weeks not productive of phlegm at this time. CP is 2/10 at this time. Given 4 baby ASA prehospital. HX of MRSA History of Present Illness The patient is a 66 year old male who presents to the Emergency Room by EMS with complaints of intermittent chest pain beginning a few days ago. The patient rates his current pain as a 2/10 in severity. He also complains of a non -productive cough, dark colored urine, generalized weakness, and headache. He notes that his blood pressure has been high recently. The patient has a history of CABG. He was given aspirin en route. He states that his weight has been fluctuating a bit recently. The patient is a smoker and smokes four cigarettes per day. He is on CPAP at night, but does not typically wear supplemental oxygen at home. Source of History: patient Onset: A few days ago Position: chest Timing: intermittent Associated Symptoms: + headache, + cough (non-productive), + urinary symptoms (dark colored), + weakness (generalized) Review of Systems See HPI for pertinent positives & negatives. A total of 10 systems reviewed and were otherwise negative. Past Medical & Surgical Medical Problems: (1) Abscess in epidural space of lumbar spine (2) Acute on chronic diastolic (congestive) heart failure (3) Back pain (4) Bronchitis (5) Bulging disc (6) Chest wall pain (7) COPD (chronic obstructive pulmonary disease) (8) COPD exacerbation (9) Fall (10) Hallucinations (11) Heart disease (12) Hyperlipidemia (13) Hypertension (14) Hypoxia (15) inability to ambulate (16) Lumbar stenosis with neurogenic claudication (17) Parkinson disease (18) Parkinsons disease (19) Pneumonia involving right lung (20) Radicular pain of right lower extremity (21) Seizure-like activity (22) Shoulder pain Surgical Problems: (1) History of appendectomy (2) S/P CABG x 2 Family History FH: heart disease Hypertension Social History Smoking Status: Current Every Day Smoker Alcohol Use: none Drug Use: none Marital Status: Housing Status: assisted living Occupation Status: disabled Current/Historical Medications Scheduled Amiodarone HCl (Amiodarone HCl), 200 MG PO DAILY Amlodipine (Norvasc), 10 MG PO DAILY Aspirin (Aspirin Ec), 81 MG PO DAILY Carbidopa/Levodopa (Sinemet Cr 50MG/200MG), 2 TAB PO QID Cholecalciferol (Vitamin D3), 1 CAP PO DAILY Desloratadine (Clarinex), 5 MG PO DAILY Docusate Sodium (Colace), 1 CAP PO BID Duloxetine HCl (Cymbalta), 30 MG PO DAILY Fluticasone Prop/Salmeterol (Advair Diskus 250-50 Mcg/Dose), 1 PUFF INH Q12 Furosemide (Lasix), 40 MG PO DAILY Gabapentin (Gabapentin), 100 MG PO TID Hydralazine Hcl (Apresoline), 1 TAB PO TID Ipratropium-Albuterol (Duoneb), 1 TREATMENT INH Q4H Levalbuterol (Levalbuterol HCl), 1.25 MG PO Q6 Lubiprostone (Amitiza), 8 MCG PO DAILY Metoprolol Succ (Toprol Xl) (Toprol-Xl), 75 MG PO HS Multivitamin (Multivitamin), 1 TAB PO DAILY Pantoprazole Sodium (Protonix), 20 MG PO DAILY Polyethylene Glycol 3350 (Miralax), 17 GM PO DAILY Potassium Chloride Microencaps (Potassium Chloride Er), 40 MEQ PO QAM Pseudoephedrine-Guaifenesin (Mucinex D), 2 TAB PO BID Simvastatin (Zocor), 40 MG PO QPM Tamsulosin HCl (Tamsulosin HCl), 0.4 MG PO HS Tiotropium [place] (Spiriva Handihaler), 1 CAP PO DAILY Scheduled PRN Levalbuterol Hcl (Levalbuterol), 1.25 MG PO Q2H PRN for SOB/Wheezing Allergies Coded Allergies: BEE STING (Verified Allergy, Severe, ANAPHYLAXIS, 11/05/16) Triptans (Verified Allergy, Unknown, unknown, 11/05/16) Benztropine (Verified Adverse Reaction, Intermediate, hallucinations/ mental confusion, 11/05/16) Eletriptan (Verified Adverse Reaction, Intermediate, CONFUSION, 11/05/16) Ropinirole (Verified Adverse Reaction, Unknown, unknown, 11/05/16) Physical Exam Vital Signs Date Time Temp Pulse Resp B/P (MAP) Pulse Ox O2 Delivery O2 Flow Rate FiO2 03/02/17 13:38 67 24 169/86 100 Nasal Cannula 2.0 03/02/17 13:14 67 22 99 Nasal Cannula 2.0 03/02/17 13:04 65 03/02/17 12:19 36.9 68 24 159/96 97 Room Air 03/02/17 12:19 97 Room Air Physical Exam GENERAL: Patient is chronically unwell appearing and in minimal distress. HEENT: No acute trauma, normocephalic atraumatic, mucous membranes moist, no nasal congestion, no scleral icterus. NECK: No stridor, no adenopathy, no meningismus, trachea is midline. LUNGS: Diffuse wheezing in all lung mcgill. Mildly dyspneic. HEART: Regular rate and rhythm. No murmurs, rubs, gallops appreciated. ABDOMEN: Soft, nontender, bowel sounds positive, no masses appreciated, no peritonitis. BACK: No midline tenderness, no CVA tenderness EXTREMITIES: Normal motion all extremities, no cyanosis, no edema. NEUROLOGIC: Alert and oriented, no acute motor or sensory deficits, no focal weakness, cranial nerves grossly intact. SKIN: No rash, no jaundice, no diaphoresis. Medical Decision & Procedures ER Provider Diagnostic Interpretation: Radiology results and stated below per my review and radiologist interpretation: CHEST ONE VIEW PORTABLE FINDINGS: The cardiac and mediastinal contours remain stable. There are postsurgical changes of a midline sternotomy. The heart is mildly enlarged. There is diffuse interstitial thickening similar to the prior study. Correlation in regards to mild congestive failure is recommended.[ IMPRESSION: Stable mild interstitial thickening/edema. No evidence of focal pulmonary consolidation Electronically signed by: Adrien Jean M.D. 03/02/2017 1:08 PM Laboratory Results 03/02/17 11:33 Red Blood Count 4.36, Mean Corpuscular Volume 95.6, Mean Corpuscular Hemoglobin 30.7, Mean Corpuscular Hemoglobin Concent 32.1, Mean Platelet Volume 10.7, Neutrophils (%) (Auto) 68.7, Lymphocytes (%) (Auto) 16.8, Monocytes (%) (Auto) 10.0, Eosinophils (%) (Auto) 2.8, Basophils (%) (Auto) 1.1, Neutrophils # (Auto ) 8.21, Lymphocytes # (Auto) 2.01, Monocytes # (Auto) 1.19, Eosinophils # (Auto ) 0.33, Basophils # (Auto) 0.13 03/02/17 11:33 Test 03/02/17 11:33 White Blood Count 11.94 K/uL (4.8-10.8) Red Blood Count 4.36 M/uL (4.7-6.1) Hemoglobin 13.4 g/dL (14.0-18.0) Hematocrit 41.7 % (42-52) Mean Corpuscular Volume 95.6 fL (80-100) Mean Corpuscular Hemoglobin 30.7 pg (25-34) Mean Corpuscular Hemoglobin Concent 32.1 g/dl (32-36) Platelet Count 205 K/uL (130-400) Mean Platelet Volume 10.7 fL (7.4-10.4) Neutrophils (%) (Auto) 68.7 % Lymphocytes (%) (Auto) 16.8 % Monocytes (%) (Auto) 10.0 % Eosinophils (%) (Auto) 2.8 % Basophils (%) (Auto) 1.1 % Neutrophils # (Auto) 8.21 K/uL (1.4-6.5) Lymphocytes # (Auto) 2.01 K/uL (1.2-3.4) Monocytes # (Auto) 1.19 K/uL (0.11-0.59) Eosinophils # (Auto) 0.33 K/uL (0-0.5) Basophils # (Auto) 0.13 K/uL (0-0.2) RDW Standard Deviation 56.7 fL (36.4-46.3) RDW Coefficient of Variation 16.2 % (11.5-14.5) Immature Granulocyte % (Auto) 0.6 % Immature Granulocyte # (Auto) 0.07 K/uL (0.00-0.02) Anion Gap 11.0 mmol/L (3-11) Est Creatinine Clear Calc Drug Dose 60.7 ml/min Estimated GFR () 63.8 Estimated GFR (Non- 55.0 BUN/Creatinine Ratio 9.6 (10-20) Calcium Level 9.1 mg/dl (8.5-10.1) Magnesium Level 2.1 mg/dl (1.8-2.4) Total Creatine Kinase 236 U/L (39-308) Creatine Kinase MB 2.5 ng/ml (0.5-3.6) Creatine Kinase MB Ratio 1.1 (0-3.0) Troponin I < 0.015 ng/ml (0-0.045) Pro-B-Type Natriuretic Peptide 473 pg/ml (0-900) Laboratory results as reviewed by me. Medications Administered Medications (Trade) Dose Ordered Sig/Igor Route Start Time Stop Time Status Last Admin Dose Admin Methylprednisolone Sodium Succinate (Solu-Medrol IV) 125 mg NOW STAT IV 03/02/17 12:37 03/02/17 12:39 DC 03/02/17 12:45 125 MG Albuterol/ Ipratropium (Duoneb) 12 ml ONE ONCE INH 03/02/17 12:45 03/02/17 12:46 DC 03/02/17 13:14 12 ML ECG Indication: chest pain Rate (beats per minute): 67 Rhythm: normal sinus Findings: no acute ischemic change, no ectopy, other (Poor baseline) ED Course 1232: The patient was evaluated in room C5. A complete history and physical exam was performed. 1237: Ordered Solu-Medrol 125 mg IV. 1245: Ordered DuoNeb 12 mL INH. 1340: Upon reevaluation, the patient is resting comfortably. He feels better. Discussed results and treatment plan with the patient. He verbalized understanding and agreement with the treatment plan. The patient will be evaluated for further management. Medical Decision Differential: Cardiac Ischemia (STEMI, NSTEMI, Unstable Angina, etc), Aortic Dissection, Arrhythmia, Pulmonary Embolism, Pneumonia, Pneumothorax, MSK, Infectious, Pericarditis/Myocarditis, Esophageal Rupture, Gastrointestinal, amongst other pathologies entertained. 66 yr old unhealthy male who continues to smoke despite COPD/CAD post CABG. Arrives with intermittent CP over last 3 days acutely worse this am thus called 911. Resolved ENV[employer]MENT[employer] PRO[employer]GER with 4 baby aspirin. Diffuse wheezing on exam and noting SHOB without oxygen. IV steroids and hour neb given. EKG, Labs, CXR look OK but with CP and COPD flare will need to come in for further treatment and evaluation. Medication Reconcilliation Current Medication List: was personally reviewed by me Blood Pressure Screening Patient's blood pressure: Elevated blood pressure Blood pressure disposition: Elevated BP felt to be situational Consults Time Called: 1338 Consulting Physician: Dr. Silas GARNICA Returned Call: [phone] Discussed the patient's case. The patient will be evaluated for further treatment and disposition. Impression Primary Impression: COPD exacerbation Additional Impression: Substernal chest pain Scribe Attestation The scribe's documentation has been prepared under my direction and personally reviewed by me in its entirety. I confirm that the note above accurately reflects all work, treatment, procedures, and medical decision making performed by me. Departure Information Dispostion Being Evaluated By Hospitalist Referrals Jeromy Hanson M.D. (PCP) Patient Instructions My [facility] Problem Qualifiers
[2017-03-02] MEDS ORDERED: PANTOprazole SOD 40 MG TAB PO STA (14:31)
[2017-03-02] MEDS ORDERED: DOXYCYCLINE HYCLATE 100 MG CAP PO STA (14:31)
[2017-03-02] MEDS ORDERED: FUROSEMIDE 40 MG/4 ML VIAL IV STA (14:42)
[2017-03-02] MEDS ORDERED: POTASSIUM CHLORIDE 10 MEQ TABCR PO STA (14:42)
[2017-03-02] MEDS ORDERED: LORATADINE 10 MG TAB PO ONE (14:45)
[2017-03-02] MEDS ORDERED: MAGNESIUM HYDROXIDE SUSP 30 ML UDC PO PRN (14:45)
[2017-03-02] MEDS ORDERED: ONDANSETRON INJ 2 MG/ML 2 ML VIAL IV PRN (14:45)
[2017-03-02] MEDS ORDERED: ALUMINUM/MAGNESIUM/SIMETH (MAALOX MAX) 30 ML UDC PO PRN (14:45)
[2017-03-02] MEDS ORDERED: NITROGLYCERIN 0.4 MG SL PER TAB CHARGE SL PRN (14:45)
--- NOTE | 2017-03-02 14:56 | History and Physical ---
History & Physical Date & Time of Service: Mar 02, 2017 at 13:57 Chief Complaint: Chest Pain Primary Care Physician: Jeromy Hanson M.D. History of Present Illness Source: patient, family ( AT BEDSIDE) 66yo male with parkinson's disease, COPD, ongoing tobacco dependence, LES, HTN, hyperlipidemia, and CAD who presents with 2 weeks of dry cough and worsening dyspnea. At baseline he has fairly severe dyspnea on exertion with reported SOB with very little activity. The TUBBS has gotten much worse and he now gets short of breath just taking a few steps. His mentions he has gained 3 pounds in the last 1-2 days. He also reports chest discomfort that "lasts for a few seconds" and resolves on its own. Episodes have been occurring nearly every hour on the hour for the last day but he has had intermittent episodes for the last week as well. Gets the episodes at rest and with activity. He has had associated chills, flushing spells of the face, headaches, fatigue, and poor appetite. reports some low grade fever as well over the weekend. He generally sleeps in a hospital bed or the chair at an inclined angle. He presented today due to the worsening dyspnea as well as elevated blood pressure. Apparently over the weekend his systolic BPs were in the 200s. Last night they called the doctor on-call because of his BP and they were advised to come to the ED then. He didn't go to the ER last night but his convinced him to come be evaluated this AM. He is a diet-controlled T2DM and blood sugars have been normal as of late. Past Medical/Surgical History PMH: 1. COPD 2. LES on CPAP 3. HTN 4. CAD s/p SD; 2-vessel CABG 2000 ([facility]) 5. Parkinson's disease 6. hyperlipidemia 7. chronic lumbar back pain 8. h/o epidural abscess 9. diet-controlled T2DM 10. paroxysmal a. fib on chronic amiodarone 11. BPH PSH: 1. CABG 2000 2. s/p appendectomy 3. lumbar back surgery x 4 4. hernia repair x 2 Family History MOTHER - CAD/SD, CHF - FATHER - PROBLEMS WITH COLON, UNKNOWN DISEASE Social History Smoking Status: Current Every Day Smoker (Smoking since age 10; at height 2ppd ; now <1/2 ppd) Smokeless Tobacco Use: No Alcohol Use: none (but drank heavily in the past) Drug Use: none Marital Status: (lives with in [place]; 2 kids) Housing status: lives with family Occupational Status: retired (worked "hard labor"), disabled Immunizations History of Influenza Vaccine: Yes Influenza Vaccine Date: Mar 07, 2007 History of Tetanus Vaccine?: Yes Tetanus Immunization Date: Jul 19, 2010 History of Pneumococcal: Yes History of Hepatitis B Vaccine: No Multi-Drug Resistant Organisms History of MDRO: Yes Type of MDRO: MRSA Allergies Coded Allergies: BEE STING (Verified Allergy, Severe, ANAPHYLAXIS, 11/05/16) Triptans (Verified Allergy, Unknown, unknown, 11/05/16) Benztropine (Verified Adverse Reaction, Intermediate, hallucinations/ mental confusion, 11/05/16) Eletriptan (Verified Adverse Reaction, Intermediate, CONFUSION, 11/05/16) Ropinirole (Verified Adverse Reaction, Unknown, unknown, 11/05/16) Home Medications Scheduled Amiodarone HCl (Amiodarone HCl), 200 MG PO DAILY Amlodipine (Norvasc), 10 MG PO DAILY Aspirin (Aspirin Ec), 81 MG PO DAILY Carbidopa/Levodopa (Sinemet Cr 50MG/200MG), 2 TAB PO QID Cholecalciferol (Vitamin D3), 1 CAP PO DAILY Desloratadine (Clarinex), 5 MG PO DAILY Docusate Sodium (Colace), 1 CAP PO BID Duloxetine HCl (Cymbalta), 30 MG PO DAILY Fluticasone Prop/Salmeterol (Advair Diskus 250-50 Mcg/Dose), 1 PUFF INH Q12 Furosemide (Lasix), 40 MG PO DAILY Gabapentin (Gabapentin), 100 MG PO TID Hydralazine Hcl (Apresoline), 1 TAB PO TID Ipratropium-Albuterol (Duoneb), 1 TREATMENT INH Q4H Levalbuterol (Levalbuterol HCl), 1.25 MG PO Q6 Lubiprostone (Amitiza), 8 MCG PO DAILY Metoprolol Succ (Toprol Xl) (Toprol-Xl), 75 MG PO HS Multivitamin (Multivitamin), 1 TAB PO DAILY Pantoprazole Sodium (Protonix), 20 MG PO DAILY Polyethylene Glycol 3350 (Miralax), 17 GM PO DAILY Potassium Chloride Microencaps (Potassium Chloride Er), 40 MEQ PO QAM Pseudoephedrine-Guaifenesin (Mucinex D), 2 TAB PO BID Simvastatin (Zocor), 40 MG PO QPM Tamsulosin HCl (Tamsulosin HCl), 0.4 MG PO HS Tiotropium [place] (Spiriva Handihaler), 1 CAP PO DAILY Scheduled PRN Levalbuterol Hcl (Levalbuterol), 1.25 MG PO Q2H PRN for SOB/Wheezing Review of Systems Constitutional: + fever, + chills, + fatigue, + problem reported (weight gain) Eyes: No worsening of vision ENT: No hearing loss, No nasal symptoms, No trouble swallowing Respiratory: + cough, + wheezing, + shortness of breath, + dyspnea on exertion , + dyspnea at rest, No sputum, No hemoptysis Cardiovascular: + chest pain, + orthopnea, + problem reported (elevated pulse over the weekend with BP checks), No edema, No palpitations Abdomen: No pain, No nausea, No vomiting, No diarrhea, No constipation, No GI bleeding Musculoskeletal: + problem reported (back pain; mentions a "lump" over the previous lumbar spine surgical site) Genitourinary - Male: No hematuria, No dysuria Neurologic: + weakness, + numbness/tingling (left leg -chronic) Psychiatric: No anxiety Endocrine: + fatigue Hematologic / Lymphatic: No abnormal bleeding/bruising Integumentary: + rash (face/forehead - chronic) Physical Exam Vital Signs Date Time Temp Pulse Resp B/P (MAP) Pulse Ox O2 Delivery O2 Flow Rate FiO2 03/02/17 13:38 67 24 169/86 100 Nasal Cannula 2.0 03/02/17 13:14 67 22 99 Nasal Cannula 2.0 03/02/17 13:04 65 03/02/17 12:19 36.9 68 24 159/96 97 Room Air 03/02/17 12:19 97 Room Air General Appearance: no apparent distress, + obese, + pertinent finding (masked facies) Head: normocephalic, atraumatic Eyes: PERRL, sclerae normal ENT: hearing grossly normal, TMs normal, pharynx normal Neck: supple, no adenopathy, thyroid normal, no JVD (nothing obvious) Respiratory/Chest: no respiratory distress, no accessory muscle use, + crackles (both bases), + wheezing Cardiovascular: regular rate, rhythm, no gallop, no murmur, normal peripheral pulses Abdomen/GI: normal bowel sounds, non tender, soft, no organomegaly Back: + pertinent finding (scar over lumbar spine; just to left of scar is a slight, nontender swollen area - no redness) Extremities/Musculoskelatal: no pedal edema Neurologic/Psych: oriented x 3, + pertinent finding (sleepy but awakens and answers questions) Skin: + pertinent finding (seborrhea on face) Lymphatic: no adenopathy (cervical ) Diagnostics Laboratory Results Results Past 24 Hours Test 03/02/17 11:33 Range/Units White Blood Count 11.94 4.8-10.8 K/uL Red Blood Count 4.36 4.7-6.1 M/uL Hemoglobin 13.4 14.0-18.0 g/dL Hematocrit 41.7 42-52 % Mean Corpuscular Volume 95.6 80-100 fL Mean Corpuscular Hemoglobin 30.7 25-34 pg Mean Corpuscular Hemoglobin Concent 32.1 32-36 g/dl Platelet Count 205 130-400 K/uL Mean Platelet Volume 10.7 7.4-10.4 fL Neutrophils (%) (Auto) 68.7 % Lymphocytes (%) (Auto) 16.8 % Monocytes (%) (Auto) 10.0 % Eosinophils (%) (Auto) 2.8 % Basophils (%) (Auto) 1.1 % Neutrophils # (Auto) 8.21 1.4-6.5 K/uL Lymphocytes # (Auto) 2.01 1.2-3.4 K/uL Monocytes # (Auto) 1.19 0.11-0.59 K/uL Eosinophils # (Auto) 0.33 0-0.5 K/uL Basophils # (Auto) 0.13 0-0.2 K/uL RDW Standard Deviation 56.7 36.4-46.3 fL RDW Coefficient of Variation 16.2 11.5-14.5 % Immature Granulocyte % (Auto) 0.6 % Immature Granulocyte # (Auto) 0.07 0.00-0.02 K/uL Sodium Level 139 136-145 mmol/L Potassium Level 3.5 3.5-5.1 mmol/L Chloride Level 99 98-107 mmol/L Carbon Dioxide Level 29 21-32 mmol/L Anion Gap 11.0 3-11 mmol/L Blood Urea Nitrogen 13 7-18 mg/dl Creatinine 1.32 0.60-1.40 mg/dl Est Creatinine Clear Calc Drug Dose 60.7 ml/min Estimated GFR () 63.8 Estimated GFR (Non- 55.0 BUN/Creatinine Ratio 9.6 10-20 Random Glucose 96 70-99 mg/dl Calcium Level 9.1 8.5-10.1 mg/dl Magnesium Level 2.1 1.8-2.4 mg/dl Total Creatine Kinase 236 39-308 U/L Creatine Kinase MB 2.5 0.5-3.6 ng/ml Creatine Kinase MB Ratio 1.1 0-3.0 Troponin I < 0.015 0-0.045 ng/ml Pro-B-Type Natriuretic Peptide 473 0-900 pg/ml Diagnostic Radiology cxr - IMPRESSION: Stable mild interstitial thickening/edema. No evidence of focal pulmonary consolidation EKG EKG - my reading - plenty of artifact NSR no ST changes QTc mildly prolonged Impression Assessment and Plan 66yo male with parkinson's disease, COPD, ongoing tobacco dependence, LES, HTN, hyperlipidemia, and CAD presenting with 2+ weeks of worsening cough and dyspnea. Presentation and exam most c/w COPD exacerbation. Cannot rule out mild acute/chronic diastolic CHF. 1. COPD exacerbation - scheduled nebs, IV solumedrol, narrow-spectrum antibiotics in the form of doxycycline given the lack of pneumonia on imaging, home inhalers, incentive spirometry/pulmonary toilet. Check ABG now - r/o hypercarbia. Titrate O2 to maintain sats in the low 90s. 2. question of mild acute/chronic diastolic CHF - 3 pound weight gain, possible mild edema on cxr - lasix 20mg IV x 1 now. Repeat exam and labs in AM. Hold PO lasix today; reassess need for IV or PO lasix tomorrow. 3. chest pain - frequent, intermittent for several days. Despite such his troponin is negative. This may be related to his pulmonary disease. [id number] will trend his troponins. Place on telemetry. 4. paroxysmal a. fib - is in NSR while in the ER. Place on telemetry. Continue amiodarone. He is not taking anticoagulation; records indicate it was stopped in the past due to hemoptysis. 5. LES - asked to bring in home CPAP unit. 6. parkinson's disease - continue sinemet QID. 7. tobacco dependence - nicoderm patch. 8. HTN - poorly controlled at home per . Will trend BPs and adjust meds as needed. 9. DVT proph - lovenox 40mg daily. 10. T2DM - I anticipate his FSBS's will worsen with steroids. Start lantus BID and novolog correction/carb coverage. 11. BPH - flomax. 12. CAD - trend troponins. ASA, beta jair, etc. 13. constipation - continue bowel regimen from home. will need PT, OT once pulmonary status is improved extensively updated full code but would not want prolonged intubation/mech ventilation Level of Care Telemetry Advanced Directives Existing Advance Directive: Yes Existing Living Will: Yes Existing Power of Tooler: Yes Resuscitation Status FULL RESUSCITATION VTE Prophylaxis Risk Level: Moderate Given or contraindicated: Enoxaparin (Lovenox)SQ Social Service Consult Receiving Home Health Note total time 70 minutes Additional Copies To Jeromy Hanson M.D.
[2017-03-02 15:07] LABS: ARTERIAL BLD GAS O2 SATURATION 99.2 % (90-95); ARTERIAL BLOOD GAS BASE EXCESS 3.4 mEq/L (-9-1.8); ARTERIAL BLOOD GAS HCO3 29 mmol/L (19-24); ARTERIAL BLOOD GAS PO2 171 mm/Hg (80-95)
[2017-03-02 15:08] LABS: ALLEN TEST POS (POS); O2 ADMINISTRATION 6.5 L
[2017-03-02] MEDS ORDERED: POTASSIUM CHLORIDE 10 MEQ TABCR ONE (15:31)
[2017-03-02 16:12] VITALS: BP 139/74; PULSE 74; TEMP 36.4; O2SAT 95; Ht 177.8 cm; Wt 95.8 kg
[2017-03-02] MEDS ORDERED: DEXTROSE 50% 50 ML SYR IV PRN (17:00)
[2017-03-02] MEDS ORDERED: GLUCAGON FOR INJ 1 MG VIAL SQ PRN (17:00)
[2017-03-02] MEDS ORDERED: GLUCOSE 40% GEL 15 GM TUBE PO PRN (17:00)
[2017-03-02] MEDS ORDERED: GLUCOSE 10 TABS/TUBE PO PRN (17:00)
[2017-03-02] MEDS ORDERED: LEVALBUTEROL/IPRATROPIUM NEB INH SCH (18:00)
[2017-03-02] MEDS: TIOTROPIUM BROMIDE 5 PUFF/90 MCG INH INH SCH (18:28)
[2017-03-02] MEDS: METHYLPREDNISOLONE IV 40 MG in SYRINGE 0 ML IV SCH (18:31)
[2017-03-02] MEDS: ENOXAPARIN 40 MG/0.4 ML SYR SC SCH (18:31)
[2017-03-02 19:05] VITALS: BP 152/62; PULSE 86; TEMP 36.5; O2SAT 96
[2017-03-02] MEDS: LEVALBUTEROL 1.25MG/0.5ML NEB INH SCH (19:20)
[2017-03-02] MEDS: IPRATROPIUM BROMIDE NEB SOLN 0.02% 2.5 ML VIAL INH SCH (19:20)
[2017-03-02 19:22] VITALS: PULSE 73; O2SAT 97
[2017-03-02] MEDS: FLUTICASONE/SALMETEROL 250/50 (ADVAIR) 14 PUFF/1 INHALER INH SCH (20:59)
[2017-03-02] MEDS: ACETAMINOPHEN 325 MG TAB PO PRN (20:59)
[2017-03-02] MEDS: CARBIDOPA/LEVODOPA 50/200MG EXT REL TAB PO SCH (21:00)
[2017-03-02] MEDS: GUAIFENESIN 600 MG TABCR PO SCH (21:01)
[2017-03-02] MEDS: DOCUSATE SODIUM 100 MG CAP PO SCH (21:02)
[2017-03-02] MEDS: DOXYCYCLINE HYCLATE 100 MG CAP PO SCH (21:02)
[2017-03-02] MEDS: SIMVASTATIN 20 MG TAB PO SCH (21:03)
[2017-03-02] MEDS: GABAPENTIN 100 MG CAP PO SCH (21:04)
[2017-03-02] MEDS: TAMSULOSIN HCL 0.4 MG CAP PO SCH (21:04)
[2017-03-02] MEDS: METOPROLOL SUCC 50MG EXT REL TAB PO SCH (21:04)
[2017-03-02] MEDS: INSULIN ASPART 100 UNITS/ML 3 ML PEN SC SCH (21:07)
[2017-03-02] MEDS: INSULIN GLARGINE SOLOSTAR 100 UNITS/ML 3 ML PEN SC SCH (21:36)
[2017-03-02 23:14] VITALS: BP 149/79; PULSE 85; TEMP 36.7; O2SAT 95
[2017-03-03] VITALS (10 sets, daily range): BP systolic 112–134; BP diastolic 59–76; PULSE 74–84; TEMP 36.2–37.3; O2SAT 91–98
[2017-03-03] MEDS: METHYLPREDNISOLONE IV 40 MG in SYRINGE 0 ML IV SCH ×5 (01:21→23:30)
[2017-03-03] MEDS: LEVALBUTEROL 1.25MG/0.5ML NEB INH SCH ×4 (01:44→18:57)
[2017-03-03] MEDS: IPRATROPIUM BROMIDE NEB SOLN 0.02% 2.5 ML VIAL INH SCH ×4 (01:44→18:57)
[2017-03-03] MEDS: ACETAMINOPHEN 325 MG TAB PO PRN ×2 (04:23→18:59)
[2017-03-03] MEDS: TIOTROPIUM BROMIDE 5 PUFF/90 MCG INH INH SCH (07:45)
[2017-03-03] MEDS: FLUTICASONE/SALMETEROL 250/50 (ADVAIR) 14 PUFF/1 INHALER INH SCH ×2 (07:45→19:54)
[2017-03-03] MEDS: PANTOprazole SOD 40 MG TAB PO SCH (07:46)
[2017-03-03] MEDS: DOXYCYCLINE HYCLATE 100 MG CAP PO SCH ×2 (07:46→19:52)
[2017-03-03 07:48] LABS: CALCIUM 9.2 mg/dl (8.5-10.1); CREATININE 1.54 mg/dl (0.60-1.40); MAGNESIUM 2.2 mg/dl (1.8-2.4); POTASSIUM 4.3 mmol/L (3.5-5.1)
[2017-03-03] MEDS: DOCUSATE SODIUM 100 MG CAP PO SCH ×2 (07:48→19:51)
[2017-03-03] MEDS: LORATADINE 10 MG TAB PO SCH (07:48)
[2017-03-03] MEDS: AMIODARONE 200 MG TAB PO SCH (07:48)
[2017-03-03] MEDS: GABAPENTIN 100 MG CAP PO SCH ×3 (07:49→19:54)
[2017-03-03] MEDS: ASPIRIN 81 MG ECTAB PO SCH (07:49)
[2017-03-03] MEDS: POTASSIUM CHLORIDE 20 MEQ TABCR PO SCH (07:50)
[2017-03-03] MEDS: DULOXETINE (CYMBALTA) 30 MG CAP PO SCH (07:50)
[2017-03-03] MEDS: GUAIFENESIN 600 MG TABCR PO SCH ×2 (07:51→19:53)
[2017-03-03] MEDS: MULTIVITAMIN TAB PO SCH (07:51)
[2017-03-03] MEDS: POLYETHYLENE (MIRALAX) 17 GM PACK PO SCH (07:51)
[2017-03-03] MEDS: CARBIDOPA/LEVODOPA 50/200MG EXT REL TAB PO SCH ×4 (07:52→19:51)
[2017-03-03] MEDS: AMLODIPINE BESYLATE 5 MG TAB PO SCH (07:52)
[2017-03-03] MEDS: INSULIN GLARGINE SOLOSTAR 100 UNITS/ML 3 ML PEN SC SCH ×2 (07:55→20:16)
[2017-03-03] MEDS: INSULIN ASPART 100 UNITS/ML 3 ML PEN SC SCH ×4 (07:59→20:12)
[2017-03-03] MEDS: NICOTINE 7 MG/24 HR TDSY TD SCH (07:59)
--- NOTE | 2017-03-03 14:59 | Progress Note ---
Subjective Date of Service: Mar 03, 2017. Subjective Pt evaluation today including: conversation w/ patient, physical exam, chart review, lab review, review of studies, review of inpatient medication list Pt reports intermittent chest pain, headaches and states his face is becoming intermittently flushed States feels the same as yesterday Problem List Medical Problems: (1) Altered mental status Status: Acute (2) Altered mental status Status: Acute (3) Congestive heart failure Status: Acute (4) Cough Status: Acute (5) Encounter for smoking cessation counseling Status: Acute (6) Generalized weakness Status: Acute (7) Intractable pain Status: Acute (8) Leukocytosis Status: Acute (9) Leukocytosis Status: Acute (10) Low back pain Status: Acute (11) Lumbar disc disease Status: Acute (12) Need for intravenous access Status: Acute (13) New onset of congestive heart failure Status: Acute (14) New onset seizure Status: Acute (15) Parkinson's disease Status: Acute (16) Parkinson's disease (tremor, stiffness, slow motion, unstableposture) Status: Acute (17) Post op infection Status: Acute (18) Right hip pain Status: Acute (19) Sciatica Status: Acute (20) Sciatica Status: Acute (21) Sepsis Status: Acute (22) Shaking Status: Acute (23) Shortness of breath Status: Acute (24) Substernal chest pain Status: Acute Review of Systems Constitutional: No fever, No chills, No sweats, No weakness, No fatigue Eyes: No worsening of vision, No eye pain, No redness, No discharge ENT: No hearing loss, No unusual epistaxis, No nasal symptoms, No sore throat Respiratory: No cough, No sputum, No wheezing, No shortness of breath, No dyspnea on exertion Cardiac: + chest pain, No orthopnea, No PND, No edema, No claudication Abdomen: No pain, No nausea, No vomiting, No diarrhea, No constipation Musculoskeletal: No joint pain, No muscle pain, No swelling, No calf pain Male : No dysuria, No urinary frequency, No incontinence, No slowing stream Neurologic: No memory loss, No paralysis, No weakness, No numbness/tingling Psychiatric: No depression symptoms, No anhedonism, No anxiety, No insomnia Endo: No fatigue, No excessive thirst Skin: No rash, No itch Objective Vital Signs Date Time Temp Pulse Resp B/P (MAP) Pulse Ox O2 Delivery O2 Flow Rate FiO2 03/03/17 14:14 74 20 95 Room Air 03/03/17 13:18 Room Air 03/03/17 11:38 36.7 79 18 112/59 (76) 94 Room Air 03/03/17 08:15 CPAP 03/03/17 07:58 36.7 77 18 131/76 (94) 98 03/03/17 07:00 78 20 94 BiPAP/CPAP 03/03/17 04:14 36.2 80 19 134/72 (92) 96 CPAP 03/03/17 04:00 CPAP 03/03/17 01:45 83 18 94 Room Air 03/02/17 23:59 CPAP 03/02/17 23:14 36.7 85 19 149/79 (102) 95 Room Air 03/02/17 20:00 Nasal Cannula 2.0 03/02/17 19:22 73 18 97 Room Air 03/02/17 19:05 36.5 86 18 152/62 (92) 96 Room Air 03/02/17 16:12 36.4 74 20 139/74 95 Room Air 03/02/17 15:10 79 20 164/81 100 Nebulizer 6.0 Physical Exam General Appearance: WD/WN, no apparent distress Eyes: normal inspection, PERRL, EOMI, sclerae normal Neck: supple, no adenopathy, thyroid normal, no JVD Respiratory/Chest: chest non-tender, lungs clear, normal breath sounds, no respiratory distress Cardiovascular: regular rate, rhythm, no edema, no gallop, no JVD Abdomen: normal bowel sounds, non tender Extremities: normal range of motion, non-tender, normal inspection, no pedal edema Neurologic/Psychiatric: no motor/sensory deficits, alert, normal mood/affect Laboratory Results Last 24 Hours Test 03/02/17 18:22 03/02/17 19:39 03/03/17 00:09 03/03/17 06:57 Troponin I < 0.015 ng/ml < 0.015 ng/ml Bedside Glucose 236 mg/dl Sodium Level 139 mmol/L Potassium Level 4.3 mmol/L Chloride Level 102 mmol/L Carbon Dioxide Level 27 mmol/L Anion Gap 10.0 mmol/L Blood Urea Nitrogen 22 mg/dl Creatinine 1.54 mg/dl Est Creatinine Clear Calc Drug Dose 53.4 ml/min Estimated GFR () 52.9 Estimated GFR (Non- 45.7 BUN/Creatinine Ratio 14.0 Random Glucose 145 mg/dl Calcium Level 9.2 mg/dl Magnesium Level 2.2 mg/dl Test 03/03/17 11:12 Bedside Glucose 159 mg/dl Assessment and Plan 66yo male with parkinson's disease, COPD, ongoing tobacco dependence, LES, HTN, hyperlipidemia, and CAD presenting with 2+ weeks of worsening cough and dyspnea. Presentation and exam most c/w COPD exacerbation. Cannot rule out mild acute/chronic diastolic CHF. 1. COPD exacerbation - resolving, currently on RA, cont scheduled nebs, IV solumedrol, doxycycline, home inhalers, incentive spirometry/pulmonary toilet. 2. Mild acute/chronic diastolic CHF - likely resolved, responded well to lasix , hold due to worsening NAYA 3. Chest pain - frequent, intermittent for several days. Despite such his troponin is negative. This may be related to his pulmonary disease. Likely atypical in nature 4. Paroxysmal a. fib - is in NSR while in the ER. Place on telemetry. Continue amiodarone. He is not taking anticoagulation; records indicate it was stopped in the past due to hemoptysis. 5. LES - asked to bring in home CPAP unit. 6. parkinson's disease - continue sinemet QID. 7. tobacco dependence - nicoderm patch. 8. HTN - poorly controlled at home per . Will trend BPs and adjust meds as needed. 9. DVT proph - lovenox 40mg daily. 10. T2DM - I anticipate his FSBS's will worsen with steroids. Start lantus BID and novolog correction/carb coverage. 11. BPH - flomax. 12. CAD - trend troponins. ASA, beta jair, etc. 13. constipation - continue bowel regimen from home.
[2017-03-03] MEDS: ENOXAPARIN 40 MG/0.4 ML SYR SC SCH (17:05)
[2017-03-03] MEDS: SIMVASTATIN 20 MG TAB PO SCH (19:52)
[2017-03-03] MEDS: METOPROLOL SUCC 50MG EXT REL TAB PO SCH (19:52)
[2017-03-03] MEDS: TAMSULOSIN HCL 0.4 MG CAP PO SCH (19:54)
[2017-03-03] MEDS ORDERED: NURSING VERBAL MED ORDER ONE (20:00)
[2017-03-03] MEDS ORDERED: ARTIFICIAL TEARS OP SOLN OP PRN ×2 (20:00)
[2017-03-04] VITALS (10 sets, daily range): BP systolic 117–151; BP diastolic 48–74; PULSE 64–111; TEMP 36.4–37; O2SAT 91–94
[2017-03-04] MEDS: IPRATROPIUM BROMIDE NEB SOLN 0.02% 2.5 ML VIAL INH SCH ×4 (02:03→19:04)
[2017-03-04] MEDS: LEVALBUTEROL 1.25MG/0.5ML NEB INH SCH ×4 (02:03→19:04)
[2017-03-04] MEDS: METHYLPREDNISOLONE IV 40 MG in SYRINGE 0 ML IV SCH ×4 (06:29→23:32)
[2017-03-04] MEDS: INSULIN ASPART 100 UNITS/ML 3 ML PEN SC SCH ×4 (08:36→21:00)
[2017-03-04] MEDS: AMIODARONE 200 MG TAB PO SCH (08:37)
[2017-03-04] MEDS: DOXYCYCLINE HYCLATE 100 MG CAP PO SCH ×2 (08:37→21:24)
[2017-03-04] MEDS: PANTOprazole SOD 40 MG TAB PO SCH (08:37)
[2017-03-04] MEDS: INSULIN GLARGINE SOLOSTAR 100 UNITS/ML 3 ML PEN SC SCH ×2 (08:37→21:27)
[2017-03-04] MEDS: DULOXETINE (CYMBALTA) 30 MG CAP PO SCH (08:38)
[2017-03-04] MEDS: ASPIRIN 81 MG ECTAB PO SCH (08:38)
[2017-03-04] MEDS: GUAIFENESIN 600 MG TABCR PO SCH ×2 (08:38→21:23)
[2017-03-04] MEDS: MULTIVITAMIN TAB PO SCH (08:38)
[2017-03-04] MEDS: DOCUSATE SODIUM 100 MG CAP PO SCH ×2 (08:38→21:24)
[2017-03-04] MEDS: CARBIDOPA/LEVODOPA 50/200MG EXT REL TAB PO SCH ×4 (08:39→21:21)
[2017-03-04] MEDS: GABAPENTIN 100 MG CAP PO SCH ×3 (08:40→21:20)
[2017-03-04] MEDS: AMLODIPINE BESYLATE 5 MG TAB PO SCH (08:40)
[2017-03-04] MEDS: LORATADINE 10 MG TAB PO SCH (08:40)
[2017-03-04] MEDS: NICOTINE 7 MG/24 HR TDSY TD SCH (08:41)
[2017-03-04] MEDS: POTASSIUM CHLORIDE 20 MEQ TABCR PO SCH (08:41)
[2017-03-04] MEDS: POLYETHYLENE (MIRALAX) 17 GM PACK PO SCH (08:41)
[2017-03-04] MEDS: FLUTICASONE/SALMETEROL 250/50 (ADVAIR) 14 PUFF/1 INHALER INH SCH ×2 (08:42→21:25)
[2017-03-04] MEDS: TIOTROPIUM BROMIDE 5 PUFF/90 MCG INH INH SCH (08:42)
[2017-03-04 08:59] LABS: HEMATOCRIT 39.7 % (42-52); MEAN CELL VOLUME 94.7 fL (80-100); MEAN CORPUSCULAR HEMOGLOBIN 30.5 pg (25-34); MEAN CORPUSCULAR HGB CONC 32.2 g/dl (32-36); MEAN PLATELET VOLUME 10.7 fL (7.4-10.4); PLATELET COUNT 235 K/uL (130-400); RED BLOOD COUNT 4.19 M/uL (4.7-6.1); WHITE BLOOD COUNT 19.32 K/uL (4.8-10.8)
[2017-03-04] MEDS: ACETAMINOPHEN 325 MG TAB PO PRN ×3 (09:03→17:17)
[2017-03-04 09:45] LABS: BUN/CREATININE RATIO 21.5 (10-20); CALCIUM 9.5 mg/dl (8.5-10.1); CARBON DIOXIDE 26 mmol/L (21-32); CHLORIDE 102 mmol/L (98-107); CREATININE 2.01 mg/dl (0.60-1.40); GLUCOSE 189 mg/dl (70-99); SODIUM 138 mmol/L (136-145)
--- NOTE | 2017-03-04 09:51 | Hospitalist Progress Note ---
Hospitalist Progress Note Date of Service Mar 04, 2017. (Ludivina Loving ., RENOC) Subjective Pt evaluation today including: conversation w/ patient, physical exam, chart review, lab review, review of inpatient medication list Pain: 5/10 intermittent chest pressure PO Intake: Tolerating PO diet Voiding: no voiding problems Patient still complains of an intermittent 5/10 chest pain that radiates across his chest. He states that his breathing feels worse today compared to yesterday. He complains of intermittent shortness of breath at rest as well as intermittent wheezing. He complains of dyspnea on exertion. He states that his cough is worse today and although it is wet it is not productive. He complains of flushing from his neck up but denies fevers. He notes numbness/tingling in his hands and feet. The patient denies fevers, chills, sweats, palpitations, claudication, nausea, vomiting, abdominal pain, dysuria, hematuria, urinary retention, paralysis, weakness. Additional Comments: See HPI for pertinent positives and negatives. All other systems reviewed and negative. (Ludivina Loving ., JOSUE-C) Objective Vital Signs Date Time Temp Pulse Resp B/P (MAP) Pulse Ox O2 Delivery O2 Flow Rate FiO2 03/04/17 07:46 36.5 70 19 138/66 (90) 91 Room Air 03/04/17 07:02 73 18 94 BiPAP/CPAP 03/04/17 04:00 Room Air 03/04/17 03:45 37.0 80 20 129/70 (89) 94 CPAP 23 03/04/17 02:04 72 18 93 Room Air 03/04/17 00:00 Room Air 03/03/17 23:16 36.7 77 22 130/66 (87) 92 Room Air 03/03/17 19:31 37.3 84 22 126/70 (88) 92 Room Air 03/03/17 19:00 Room Air 4.0 03/03/17 19:00 78 18 91 Room Air 03/03/17 15:40 36.7 75 20 122/61 (81) 94 03/03/17 15:30 Room Air 03/03/17 14:14 74 20 95 Room Air 03/03/17 13:18 Room Air 03/03/17 11:38 36.7 79 18 112/59 (76) 94 Room Air (Ludivina Loving ., PA-C) Physical Exam Notes: General appearance: +Obese. Well-developed, well-nourished, no apparent distress Head: Normocephalic, atraumatic Eyes: Normal inspection, PERRL, EOMI ENT: Normal ENT inspection, hearing grossly normal, pharynx normal Neck: Supple, no JVD, trachea midline Respiratory/Chest: +Diffuse wheezing. Decreased breath sounds, poor air movement throughout. No respiratory distress Cardiovascular: Regular rate & rhythm, no gallop, no murmur Abdomen/GI: Normal bowel sounds, non-tender, soft Extremities/Musculoskeletal: Normal inspection, no calf tenderness, no pedal edema Neurological/Psych: +Tremors. Alert, normal mood/affect, oriented x 3 Skin: Normal color, warm/dry, no rash (Ludivina Loving ., PA-C) Laboratory Results Last 24 Hours Test 03/03/17 11:12 03/03/17 16:23 03/03/17 20:05 03/04/17 06:20 Bedside Glucose 159 mg/dl 100 mg/dl 144 mg/dl 145 mg/dl Test 03/04/17 08:31 White Blood Count 19.32 K/uL Red Blood Count 4.19 M/uL Hemoglobin 12.8 g/dL Hematocrit 39.7 % Mean Corpuscular Volume 94.7 fL Mean Corpuscular Hemoglobin 30.5 pg Mean Corpuscular Hemoglobin Concent 32.2 g/dl RDW Standard Deviation 56.2 fL RDW Coefficient of Variation 16.3 % Platelet Count 235 K/uL Mean Platelet Volume 10.7 fL (Ludivina Loving ., PA-C) Assessment and Plan 66 y/o male with a history of COPD, paroxysmal a-fib, HTN, HLD, CAD, DM II, Parkinson's disease, BPH, and LES who presents with 2+ weeks of worsening cough and dyspnea. COPD exacerbation--stable. Pt remains on room air but subjectively reports worsening SOB -Admit to telemetry. No acute events overnight. Pt in sinus rhythm with PVCs, HR 70s -Solu-Medrol 40 mg IV q6h -Xopenex/Atrovent nebs QIDR -Doxycycline 100 mg PO BID. Day #3 -Continue home Advair BID and Spiriva -Continue Mucinex 1200 mg PO BID -O2 by protocol -Repeat CXR due to worsening SOB ?Mild acute on chronic diastolic CHF--resolved -Had urine output after receiving Lasix 20 mg IV, but then developed NAYA -Hold further Lasix for now NAYA on CKD stage III--worsening -Baseline creatine around 1.2 -Hold Lasix -Creatinine worsening, up to 2.01 on 03/04 from 1.54 Chest pain--ongoing -No events on tele -Cardiac enzymes negative x 3 -May be related to pulmonary disease Paroxysmal a-fib--stable, currently in NSR -Continue amiodarone 200 mg PO qd -No AC due to previous hemoptysis HTN, HLD, CAD--stable. BP reportedly uncontrolled at home, but well controlled here w/home regimen -Continue ASA, amlodipine 10 mg PO qd, metoprolol succinate 75 mg PO hs, hydralazine 100 mg PO TID, and simvastatin 40 mg PO hs DM II--last HgbA1c checked 09/04/16 was 6.0. Diet controlled -Hyperglycemia due to steroids -Lantus 10 units SC BID -Insulin sliding scale -Check BSGs q ac and qhs -Recheck A1c Neuropathy -Continue Cymbalta 30 mg PO qd and gabapentin 100 mg PO TID Parkinson's disease -Continue Sinemet 50/200 mg 2 tabs PO QID BPH -Continue Flomax 0.4 mg PO hs LES -Continue CPAP Constipation--stable. Pt denies constipation currently -Continue Colace 100 mg PO BID, scheduled Miralax daily -Pt also takes Amitiza at home DVT prophylaxis -Enoxaparin 40 mg SC q24h Code Status -Level I, FULL RESUSCITATION STATUS (Ludivina Loving ., PA-C) I agree with PA assessment and plan and have seen and examined pt myself Resting comfortably in bed VSS Labs reviewed, noted leukocytosis but liked secondary to steroid use COPD exacerbation, mild although scattered wheezes auscultated Cont steroids at this time Subjectively pt states worsening sob, although satting well Repeat CXR at this time Worsening NAYA, cont to hold nephrotoxins at this time updated (Adolfo Petersen D.Cristela.)
--- NOTE | 2017-03-04 10:24 | Clinical Documentation Query ---
CLINICAL DOCUMENTATION QUERY Ms. RENTERIA, In your clinical opinion is this patient being managed for: (x ) NAYA on Chronic kidney disease, stage 3 ( ) Not Agree ( ) Other explanation of clinical findings (Please Explain) ( ) Unable to determine (Please Define) ( ) Need to Discuss The medical record reflects the following clinical findings, treatment, and risk factors. Clinical Indicators: 66 yo male presenting with COPD exacerbation and mild acute on chronic diastolic CHF. Review of historical GFR showed range of 45.7-62.2. Treatment:monitor PRP's, treat comorbid diseases Risk Factors: HTN, DM, A fib, CAD, COPD, Please clarify and document your clinical opinion in the progress notes and discharge summary. Terms such as "probable", "suspected", "likely", "questionable", "possible", or "still to be ruled out" are acceptable. IF IN AGREEMENT, YOU MUST DOCUMENT ABOVE DIAGNOSTIC STATEMENT IN DAILY PROGRESS NOTES AND DISCHARGE SUMMARY. This document is not part of the patient's record. Thank You, Gisel Graham RN [phone]
--- NOTE | 2017-03-04 10:26 | Clinical Documentation Query ---
CLINICAL DOCUMENTATION QUERY Dr. MAO, In your clinical opinion is this patient being managed for: ( X ) Chronic kidney disease, stage 3 ( ) Not Agree ( ) Other explanation of clinical findings (Please Explain) ( ) Unable to determine (Please Define) ( ) Need to Discuss The medical record reflects the following clinical findings, treatment, and risk factors. Clinical Indicators: 66 yo male presenting with COPD exacerbation and mild acute on chronic diastolic CHF. Review of historical GFR showed range of 45.7-62.2. Treatment:monitor PRP's, treat comorbid diseases Risk Factors: HTN, DM, A fib, CAD, COPD, Please clarify and document your clinical opinion in the progress notes and discharge summary. Terms such as "probable", "suspected", "likely", "questionable", "possible", or "still to be ruled out" are acceptable. IF IN AGREEMENT, YOU MUST DOCUMENT ABOVE DIAGNOSTIC STATEMENT IN DAILY PROGRESS NOTES AND DISCHARGE SUMMARY. This document is not part of the patient's record. Thank You, Gisel Graham RN [phone]
[2017-03-04 10:38] LABS: BLOOD UREA NITROGEN 43 mg/dl (7-18)
[2017-03-04 11:27] LABS: ESTIMATED AVERAGE GLUCOSE 114 mg/dl; HA1C FLAG Normal (Normal)
--- NOTE | 2017-03-04 14:32 | DIAGNOSTIC IMAGING REPORT ---
CHEST ONE VIEW PORTABLE CLINICAL HISTORY: worsening SOB COMPARISON STUDY: 03/02/2017 FINDINGS: There are postsurgical changes of a midline sternotomy. The heart is the upper limits of normal in size. There is no lobar consolidation. There is stable nonspecific interstitial thickening. No pleural effusions are visualized.[ IMPRESSION: Stable mild interstitial thickening/edema. No evidence of lobar consolidation Electronically signed by: Adrien Jean M.D. 03/04/2017 2:30 PM Dictated Date/Time: 03/04/2017 2:29 PM
[2017-03-04] MEDS: ENOXAPARIN 40 MG/0.4 ML SYR SC SCH (17:16)
[2017-03-04] MEDS: TAMSULOSIN HCL 0.4 MG CAP PO SCH (21:20)
[2017-03-04] MEDS: SIMVASTATIN 20 MG TAB PO SCH (21:24)
[2017-03-04] MEDS: METOPROLOL SUCC 50MG EXT REL TAB PO SCH (21:24)
[2017-03-05] VITALS (11 sets, daily range): BP systolic 98–143; BP diastolic 65–83; PULSE 64–110; TEMP 35.4–36.8; O2SAT 93–98
[2017-03-05] MEDS: LEVALBUTEROL 1.25MG/0.5ML NEB INH SCH ×4 (02:07→18:53)
[2017-03-05] MEDS: IPRATROPIUM BROMIDE NEB SOLN 0.02% 2.5 ML VIAL INH SCH ×4 (02:07→18:49)
[2017-03-05] MEDS: ACETAMINOPHEN 325 MG TAB PO PRN ×2 (02:27→16:12)
[2017-03-05] MEDS: METHYLPREDNISOLONE IV 40 MG in SYRINGE 0 ML IV SCH (05:37)
[2017-03-05 07:40] LABS: HEMATOCRIT 38.5 % (42-52); MEAN CELL VOLUME 95.1 fL (80-100); MEAN CORPUSCULAR HEMOGLOBIN 30.9 pg (25-34); MEAN CORPUSCULAR HGB CONC 32.5 g/dl (32-36); MEAN PLATELET VOLUME 10.3 fL (7.4-10.4); PLATELET COUNT 205 K/uL (130-400); RED BLOOD COUNT 4.05 M/uL (4.7-6.1); WHITE BLOOD COUNT 16.11 K/uL (4.8-10.8)
[2017-03-05 08:12] LABS: BUN/CREATININE RATIO 27.7 (10-20); CALCIUM 9.1 mg/dl (8.5-10.1); CREATININE 1.64 mg/dl (0.60-1.40); POTASSIUM 4.1 mmol/L (3.5-5.1)
[2017-03-05] MEDS: INSULIN ASPART 100 UNITS/ML 3 ML PEN SC SCH ×4 (09:55→20:41)
[2017-03-05] MEDS: FLUTICASONE/SALMETEROL 250/50 (ADVAIR) 14 PUFF/1 INHALER INH SCH ×2 (10:09→20:34)
[2017-03-05] MEDS: TIOTROPIUM BROMIDE 5 PUFF/90 MCG INH INH SCH (10:10)
[2017-03-05] MEDS: LORATADINE 10 MG TAB PO SCH (10:12)
[2017-03-05] MEDS: DOCUSATE SODIUM 100 MG CAP PO SCH ×2 (10:12→20:40)
[2017-03-05] MEDS: DULOXETINE (CYMBALTA) 30 MG CAP PO SCH (10:13)
[2017-03-05] MEDS: AMIODARONE 200 MG TAB PO SCH (10:13)
[2017-03-05] MEDS: ASPIRIN 81 MG ECTAB PO SCH (10:14)
[2017-03-05] MEDS: POTASSIUM CHLORIDE 20 MEQ TABCR PO SCH (10:15)
[2017-03-05] MEDS: GUAIFENESIN 600 MG TABCR PO SCH ×2 (10:16→20:42)
[2017-03-05] MEDS: POLYETHYLENE (MIRALAX) 17 GM PACK PO SCH (10:16)
[2017-03-05] MEDS: MULTIVITAMIN TAB PO SCH (10:17)
[2017-03-05] MEDS: GABAPENTIN 100 MG CAP PO SCH ×3 (10:18→20:38)
[2017-03-05] MEDS: AMLODIPINE BESYLATE 5 MG TAB PO SCH (10:18)
[2017-03-05] MEDS: PANTOprazole SOD 40 MG TAB PO SCH (10:19)
[2017-03-05] MEDS: CARBIDOPA/LEVODOPA 50/200MG EXT REL TAB PO SCH ×5 (10:20→20:39)
[2017-03-05] MEDS: DOXYCYCLINE HYCLATE 100 MG CAP PO SCH ×2 (10:20→20:40)
[2017-03-05] MEDS: NICOTINE 7 MG/24 HR TDSY TD SCH (10:21)
[2017-03-05] MEDS: INSULIN GLARGINE SOLOSTAR 100 UNITS/ML 3 ML PEN SC SCH ×2 (10:23→20:50)
--- NOTE | 2017-03-05 15:01 | Hospitalist Progress Note ---
Hospitalist Progress Note Date of Service Mar 05, 2017. (Ludivina Loving ., JOSUE-C) Subjective Pt evaluation today including: conversation w/ patient, physical exam, chart review, lab review, review of inpatient medication list Pain: Intermittent chest pain, unchanged PO Intake: Tolerating PO diet Voiding: no voiding problems Patient reports feeling about the same. He still complains of intermittent chest pain that remains unchanged. He has intermittent SOB and wheezing as well as dyspnea on exertion. He still has a non-productive cough. The patient denies fevers, chills, sweats, chest pain, palpitations, claudication, nausea, vomiting, abdominal pain, dysuria, hematuria, urinary retention, paralysis, weakness, numbness and tingling. Additional Comments: See HPI for pertinent positives and negatives. All other systems reviewed and negative. (Ludivina Loving ., PA-C) Objective Vital Signs Date Time Temp Pulse Resp B/P (MAP) Pulse Ox O2 Delivery O2 Flow Rate FiO2 03/05/17 14:21 110 18 93 Room Air 03/05/17 12:00 Room Air 03/05/17 11:04 36.6 66 16 134/83 (100) 95 03/05/17 09:36 Room Air CPAP 03/05/17 08:37 36.4 70 15 139/65 (89) 94 03/05/17 08:00 Room Air 03/05/17 07:01 65 18 96 BiPAP/CPAP 03/05/17 04:23 36.8 68 20 143/72 (95) 96 CPAP 03/05/17 04:00 Room Air 03/05/17 02:13 66 18 96 BiPAP/CPAP 03/05/17 00:00 Room Air 03/04/17 23:29 36.7 111 19 117/48 (71) 03/04/17 20:00 Room Air 03/04/17 19:14 36.4 80 20 139/65 (89) 94 Room Air 03/04/17 19:09 81 18 93 Room Air 03/04/17 16:00 Room Air 03/04/17 15:37 36.6 64 26 91 Room Air (Ludivina Loving ., PA-C) Physical Exam Notes: General appearance: +Obese. Well-developed, well-nourished, no apparent distress Head: Normocephalic, atraumatic Eyes: Normal inspection, PERRL, EOMI ENT: Normal ENT inspection, hearing grossly normal, pharynx normal Neck: Supple, no JVD, trachea midline Respiratory/Chest: +Minimal wheezing. Decreased breath sounds, poor air movement throughout. No respiratory distress Cardiovascular: Regular rate & rhythm, no gallop, no murmur Abdomen/GI: Normal bowel sounds, non-tender, soft Extremities/Musculoskeletal: Normal inspection, no calf tenderness, no pedal edema Neurological/Psych: +Tremors. Alert, normal mood/affect, oriented x 3 Skin: Normal color, warm/dry, no rash (Ludivina Loving ., PA-C) Laboratory Results Last 24 Hours Test 03/04/17 15:57 03/04/17 20:08 03/05/17 07:05 03/05/17 07:18 Bedside Glucose 106 mg/dl 154 mg/dl 124 mg/dl White Blood Count 16.11 K/uL Red Blood Count 4.05 M/uL Hemoglobin 12.5 g/dL Hematocrit 38.5 % Mean Corpuscular Volume 95.1 fL Mean Corpuscular Hemoglobin 30.9 pg Mean Corpuscular Hemoglobin Concent 32.5 g/dl RDW Standard Deviation 57.0 fL RDW Coefficient of Variation 16.4 % Platelet Count 205 K/uL Mean Platelet Volume 10.3 fL Sodium Level 138 mmol/L Potassium Level 4.1 mmol/L Chloride Level 104 mmol/L Carbon Dioxide Level 26 mmol/L Anion Gap 8.0 mmol/L Blood Urea Nitrogen 46 mg/dl Creatinine 1.64 mg/dl Est Creatinine Clear Calc Drug Dose 50.1 ml/min Estimated GFR () 49.1 Estimated GFR (Non- 42.3 BUN/Creatinine Ratio 27.7 Random Glucose 133 mg/dl Calcium Level 9.1 mg/dl Test 03/05/17 10:53 Bedside Glucose 250 mg/dl (Ludivina Loving, JOSUE-C) Diagnostic Results Reviewed the following studies and agree with interpretation as follows: Patient Name: KAILYN JORDAN Unit Number: [id number] Dictated: 03/04/171428 Transcribed: 03/04/171428 ARG Printed Date/Time: [~ rep prt dt]/[~ rep prt tm] [~ rep ct labl] - [~ rep ct ivnm] [facility] [place] [address] Dictated: 03/04/17 142 Transcribed: 03/04/17 142 ARG Printed Date/Time: [~ rep prt dt]/[~ rep prt tm] [~ rep ct labl] - [~ rep ct ivnm] Patient: KAILYN JORDAN Address1: [address] [facility] Rec: [id number] Address2: [address] Acct ID: [id number] [facility] Zip: [place] [id number] Date: 1950 Sex: M Room/Bed: [facility] Ref Phy: Jeromy Hanson M.D. SC: WillT Att Phy: Adolfo Petersen D.O. Report #: [id number] Carli Phy: Jeromy Hanson M.D. Test: CXR1P Admit Phy: Shayne Rosen MD Call Center Supervisor: SARAH Interpreting Phy: Adrien Jean M.D. Diagnosis: COPD EXACERBATION, SUBSTERNAL CHEST PAIN Ordering Phy: Ludivina Loving PA-C Service Date: 03/04/17 Admit Date: 03/02/1711/13/17 MNE: [id number] CONF: DICTATED BY: Adrien Jean M.D.]] CC: Adolfo Petersen D.O. Cordero, Amanda ., Jeromy Hernandez M.D. Endcc: [~ rep ct add3]] CHEST ONE VIEW PORTABLE CLINICAL HISTORY: worsening SOB COMPARISON STUDY: 03/02/2017 FINDINGS: There are postsurgical changes of a midline sternotomy. The heart is the upper limits of normal in size. There is no lobar consolidation. There is stable nonspecific interstitial thickening. No pleural effusions are visualized.[ IMPRESSION: Stable mild interstitial thickening/edema. No evidence of lobar consolidation Electronically signed by: Adrien Jean M.D. 03/04/2017 2:30 PM Dictated Date/Time: 03/04/2017 2:29 PM The status of this report is Signed. Draft = Not yet reviewed or approved by Radiologist. Signed = Reviewed and approved by Radiologist. <AttendingPhy>Adolfo Petersen D.O.</AttendingPhy> <FamilyPhy>Jeromy Hanson M.D.</FamilyPhy> <PrimaryPhy>Jeromy Hanson M.D.</ PrimaryPhy> <UnitNumber>[id number]</UnitNumber> <VisitNumber>[id number]</ VisitNumber> <PatientName>KAILYN JORDAN</PatientName> <DateOfBirth>1950</ DateOfBirth> <Location>C.2T</Location> <ServiceDate>03/02/17</ServiceDate> <MNE> ESINDI</MNE> <OrderingPhy>Ludivina Loving PA-C</OrderingPhy> <OrderingPhyMNE>f rep ord dr stewart</OrderingPhyMNE> <DictatingPhyMNE>f rep dict dr stewart</ DictatingPhyMNE> <CCListMNE>f rep ct mne</CCListMNE> <AdmittingPhyMNE>f pt admit dr stewart</AdmittingPhyMNE> <AttendingPhyMNE>f pt attend dr stewart</ AttendingPhyMNE> <ConsultingPhyMNE>f pt consult dr stewart</ConsultingPhyMNE> <FamilyPhyMNE>f pt fam dr stewart</FamilyPhyMNE> <OtherPhyMNE>f pt other dr stewart</OtherPhyMNE> < PrimaryPhyMNE>f pt prim care dr stewart</PrimaryPhyMNE> <ReferringPhyMNE>f pt referring dr stewart</ReferringPhyMNE> (Ludivina Loving .DEYA) Assessment and Plan 66 y/o male with a history of COPD, paroxysmal a-fib, HTN, HLD, CAD, DM II, Parkinson's disease, BPH, and LES who presents with 2+ weeks of worsening cough and dyspnea. COPD exacerbation--stable. Pt remains on room air but subjectively reports worsening SOB -Admit to telemetry. No acute events overnight. Pt in sinus rhythm with PVCs, HR 70s. Transfer to med/surg -D/C Solu-Medrol -Prednisone 40 mg PO BID -Xopenex/Atrovent nebs QIDR -Doxycycline 100 mg PO BID. Day #4 -Continue home Advair BID and Spiriva -Continue Mucinex 1200 mg PO BID -O2 by protocol -Repeat CXR stable, no changes ?Mild acute on chronic diastolic CHF--resolved -Had urine output after receiving Lasix 20 mg IV, but then developed NAYA -Hold further Lasix for now NAYA on CKD stage III--improving -Baseline creatine around 1.2 -Hold Lasix -Creatinine improved to 1.64 on 03/05 from 2.01 Chest pain--ongoing -No events on tele -Cardiac enzymes negative x 3 -May be related to pulmonary disease Paroxysmal a-fib--stable, currently in NSR -Continue amiodarone 200 mg PO qd -No AC due to previous hemoptysis HTN, HLD, CAD--stable. BP reportedly uncontrolled at home, but well controlled here w/home regimen -Continue ASA, amlodipine 10 mg PO qd, metoprolol succinate 75 mg PO hs, hydralazine 100 mg PO TID, and simvastatin 40 mg PO hs DM II--last HgbA1c checked 09/04/16 was 6.0. Diet controlled -Hyperglycemia due to steroids -Lantus 10 units SC BID -Insulin sliding scale -Check BSGs q ac and qhs -HgbA1c 5.6 on 03/04 Neuropathy -Continue Cymbalta 30 mg PO qd and gabapentin 100 mg PO TID Parkinson's disease -Continue Sinemet 50/200 mg 2 tabs PO QID BPH -Continue Flomax 0.4 mg PO hs LES -Continue CPAP Constipation--stable. Pt denies constipation currently -Continue Colace 100 mg PO BID, scheduled Miralax daily -Pt also takes Amitiza at home DVT prophylaxis -Enoxaparin 40 mg SC q24h Code Status -Level I, FULL RESUSCITATION STATUS (Ludivina Loving, PA-C) Reviewed: Pt Seen/Exam by Me (Jennifer Hill, DO) History Pt is currently getting his usual breathing tx. He states that he has nebs at home at baseline. He feels his SOB is the same as on admission. Still with chest pain, but better and less often. Tolerating PO without issue. Agree with HPI/ROS as noted. (Jennifer Hill, DO) General Appearance: WD/WN, no apparent distress Eye Exam: bilateral eye normal inspection, bilateral eye EOMI Respiratory: no respiratory distress, wheezing (expiratory and mild) Cardiovascular: normal peripheral pulses, regular rate, rhythm Gastrointestinal: non tender, soft Extremities: non-tender, no pedal edema Neurologic/Psychiatric: alert, normal mood/affect Skin Characteristics: normal color, warm/dry (Jennifer Hill DO) Assessment/Plan Agree with plan as outlined above COPD exacerbation: feels no improvement, still with wheezing CHF on admission and is improving NAYA, improving Can transfer off of tele (Jennifer Hill, DO)
[2017-03-05] MEDS: ENOXAPARIN 40 MG/0.4 ML SYR SC SCH (17:42)
[2017-03-05] MEDS: TAMSULOSIN HCL 0.4 MG CAP PO SCH (20:38)
[2017-03-05] MEDS: SIMVASTATIN 20 MG TAB PO SCH (20:41)
[2017-03-05] MEDS: METOPROLOL SUCC 50MG EXT REL TAB PO SCH (20:46)
[2017-03-06 00:03] VITALS: BP 140/64; PULSE 70; TEMP 36.4; O2SAT 97
[2017-03-06] MEDS: IPRATROPIUM BROMIDE NEB SOLN 0.02% 2.5 ML VIAL INH SCH ×2 (01:40→07:18)
[2017-03-06] MEDS: LEVALBUTEROL 1.25MG/0.5ML NEB INH SCH ×2 (01:40→07:17)
[2017-03-06 01:42] VITALS: PULSE 67; O2SAT 96
[2017-03-06 07:18] VITALS: PULSE 74; O2SAT 92
[2017-03-06 07:20] VITALS: BP 160/76; PULSE 75; TEMP 36.5; O2SAT 91
[2017-03-06 07:30] LABS: MEAN CORPUSCULAR HEMOGLOBIN 30.5 pg (25-34); MEAN CORPUSCULAR HGB CONC 32.1 g/dl (32-36); MEAN PLATELET VOLUME 10.4 fL (7.4-10.4); PLATELET COUNT 217 K/uL (130-400); WHITE BLOOD COUNT 13.83 K/uL (4.8-10.8)
[2017-03-06 08:01] LABS: BUN/CREATININE RATIO 28.4 (10-20); CREATININE 1.54 mg/dl (0.60-1.40); POTASSIUM 4.1 mmol/L (3.5-5.1)
[2017-03-06] MEDS: DOCUSATE SODIUM 100 MG CAP PO SCH (09:00)
[2017-03-06] MEDS: POLYETHYLENE (MIRALAX) 17 GM PACK PO SCH (09:00)
[2017-03-06] MEDS: INSULIN ASPART 100 UNITS/ML 3 ML PEN SC SCH ×2 (09:13→12:10)
[2017-03-06] MEDS: INSULIN GLARGINE SOLOSTAR 100 UNITS/ML 3 ML PEN SC SCH (09:13)
[2017-03-06] MEDS: POTASSIUM CHLORIDE 20 MEQ TABCR PO SCH (09:15)
[2017-03-06] MEDS: FLUTICASONE/SALMETEROL 250/50 (ADVAIR) 14 PUFF/1 INHALER INH SCH (09:15)
[2017-03-06] MEDS: LORATADINE 10 MG TAB PO SCH (09:15)
[2017-03-06] MEDS: GABAPENTIN 100 MG CAP PO SCH (09:16)
[2017-03-06] MEDS: AMIODARONE 200 MG TAB PO SCH (09:16)
[2017-03-06] MEDS: NICOTINE 7 MG/24 HR TDSY TD SCH (09:17)
[2017-03-06] MEDS: MULTIVITAMIN TAB PO SCH (09:19)
[2017-03-06] MEDS: GUAIFENESIN 600 MG TABCR PO SCH (09:19)
[2017-03-06] MEDS: TIOTROPIUM BROMIDE 5 PUFF/90 MCG INH INH SCH (09:20)
[2017-03-06] MEDS: DULOXETINE (CYMBALTA) 30 MG CAP PO SCH (09:20)
[2017-03-06] MEDS: DOXYCYCLINE HYCLATE 100 MG CAP PO SCH (09:20)
[2017-03-06] MEDS: PANTOprazole SOD 40 MG TAB PO SCH (09:20)
[2017-03-06] MEDS: CARBIDOPA/LEVODOPA 50/200MG EXT REL TAB PO SCH ×2 (09:21→12:11)
[2017-03-06] MEDS: AMLODIPINE BESYLATE 5 MG TAB PO SCH (09:22)
[2017-03-06] MEDS: ASPIRIN 81 MG ECTAB PO SCH (09:22)
[2017-03-06] MEDS: ACETAMINOPHEN 325 MG TAB PO PRN (09:38)
[2017-03-06 10:41] VITALS: BP 131/63; PULSE 83; O2SAT 94
[2017-03-06] MEDS ORDERED: PRD20 PO (10:54)
--- NOTE | 2017-03-06 11:03 | Discharge Instructions ---
Discharge Instructions Date of Service Mar 06, 2017. Admission Reason for Admission: Copd Exacerbation, Substernal Chest Pain Discharge Discharge Diagnosis / Problem: Chronic obstructive pulmonary disease exacerbation Discharge Goals Goal(s): Decrease discomfort, Improve function, Diagnostic testing, Therapeutic intervention Activity Recommendations Activity Limitations: resume your previous activity (as tolerated) . Instructions / Follow-Up Instructions / Follow-Up You were admitted to the hospital presenting with an acute exacerbation of your chronic obstructive pulmonary disease (COPD). You were treated with steroids and nebulizer treatments. You also completed a course of an antibiotic called doxycycline. Your breathing and wheezing is improved, and you are now medically stable for discharge. Medications: *Please take the following prednisone (steroid) taper: -40 mg (2 tablets) twice a day for 1 day, then -40 mg (2 tablets) once daily for 2 days, then -20 mg (1 tablet) once daily for 2 days, then stop *Please monitor your blood sugars at home as the steroids will make these elevated. *Please do not take your water pill, furosemide (Lasix) until you follow up with your primary care provider, as you developed acute kidney injury during your hospital stay. Although this is resolving now, the water pill may make this worse. Your primary care provider can resume this medication once the injury has resolved. *No other changes have been made to your medications, please take as prescribed. Follow up: *You have been scheduled to follow up at your primary care provider's office with SHELLY Lang, on March 10 at 3:00 pm. Your primary care provider will follow your kidney function as well as your sugars. Please seek medical attention if you experience fevers, chills, sweats, dizziness/lightheadedness, loss of consciousness, chest pain, shortness of breath, nausea, vomiting, numbness or tingling. Current Hospital Diet Patient's current hospital diet: Diabetes Type 2 Diet, AHA Diet (Heart Healthy) Discharge Diet Recommended Diet: AHA Diet (Heart Healthy), Diabetes Type 2 Diet Pending Studies Studies pending at discharge: no Laboratory Results Hemoglobin A1c Test 03/04/17 10:06 Range/Units Estimated Average Glucose 114 mg/dl Hemoglobin A1c 5.6 4.5-5.6 % Medical Emergencies . Who to Call and When: Medical Emergencies: If at any time you feel your situation is an emergency, please call 911 immediately. . Non-Emergent Contact Non-Emergency issues call your: Primary Care Provider . Past History Medical & Surgical History: (1) COPD exacerbation . "Provider Documentation" section prepared by Ludivina Loving. . VTE Core Measure Inpt VTE Proph given/why not?: Enoxaparin (Lovenox)SQ
[2017-03-06 11:44] VITALS: BP 160/76; PULSE 75; TEMP 36.5; O2SAT 91
--- NOTE | 2017-03-06 14:34 | Discharge Summary ---
Discharge Summary Date of Service Mar 06, 2017. (Ludivina Loving PA-C) Discharge Summary Admission Date: Mar 02, 2017 at 14:41 Discharge Date: Mar 06, 2017 Discharge Disposition: Home with services Principal Diagnosis: COPD exacerbation Problems/Secondary Diagnoses: Acute on chronic diastolic CHF NAYA on CKD stage III Immunizations: Have You Had Influenza Vaccine: Yes Influenza Vaccine Date: Mar 07, 2007 History of Tetanus Vaccine?: Yes Tetanus Immunization Date: Jul 19, 2010 History of Pneumococcal: Yes History of Hepatitis B Vaccine: No (Ludivina Loving PA-C) Medication Reconciliation New Medications: Prednisone (Prednisone) 20 Mg Tab 20 MG PO UD for 5 Days, #10 TAB Day 1: 40 mg (2 tabs) twice a day Day 2-3: 40 mg (2 tabs) once daily Day 4-5: 20 mg (1 tab) once daily Continued Medications: Amiodarone HCl (Amiodarone HCl) 200 Mg Tab 200 MG PO DAILY Amlodipine (Norvasc) 10 Mg Tab 10 MG PO DAILY, TAB Aspirin (Aspirin Ec) 81 Mg Tab 81 MG PO DAILY Carbidopa/Levodopa (Sinemet Cr 50MG/200MG) Tabcr 2 TAB PO QID, TAB Cholecalciferol (Vitamin D3) 2,000 Unit Cap 1 CAP PO DAILY for 90 Days, #90 CAP 3 Refills Desloratadine (Clarinex) 5 Mg Tab 5 MG PO DAILY, TAB Docusate Sodium (Colace) 100 Mg Cap 1 CAP PO BID Duloxetine HCl (Cymbalta) 30 Mg Cap 30 MG PO DAILY for 30 Days, #30 CAP 2 Refills Fluticasone Prop/Salmeterol (Advair Diskus 250-50 Mcg/Dose) 14 Puff/1 Inhaler Aerp 1 PUFF INH Q12 Gabapentin (Gabapentin) 100 Mg Cap 100 MG PO TID, #90 Hydralazine Hcl (Apresoline) 100 Mg Tab 1 TAB PO TID for 30 Days, #90 TAB 5 Refills Ipratropium-Albuterol (Duoneb) 3 Ml Nebu 1 TREATMENT INH Q4H, INHA Levalbuterol (Levalbuterol HCl) 1.25 Mg/3 Ml Nebu 1.25 MG PO Q6, #72 Levalbuterol Hcl (Levalbuterol) 1.25 Mg/0.5 Ml Neb 1.25 MG PO Q2H PRN for SOB/Wheezing Lubiprostone (Amitiza) 8 Mcg Cap 8 MCG PO DAILY, CAP Metoprolol Succ (Toprol Xl) (Toprol-Xl) 50 Mg Tabcr 75 MG PO HS Multivitamin (Multivitamin) Tab 1 TAB PO DAILY, TAB Pantoprazole Sodium (Protonix) 20 Mg Tab 20 MG PO DAILY, #90 Polyethylene Glycol 3350 (Miralax) 1 Pow Pow 17 GM PO DAILY, #255 GM Potassium Chloride Microencaps (Potassium Chloride Er) 20 Meq Tab 40 MEQ PO QAM, #120 Pseudoephedrine-Guaifenesin (Mucinex D) 1 Tab Tab 2 TAB PO BID for 10 Days, #40 TAB Simvastatin (Zocor) 20 Mg Tab 40 MG PO QPM, TAB Tamsulosin HCl (Tamsulosin HCl) 0.4 Mg Cap 0.4 MG PO HS Tiotropium Simms (Spiriva Handihaler) 30 Puff/540 Mcg Aerp 1 CAP PO DAILY, #90 Discontinued Medications: Furosemide (Lasix) 40 Mg Tab 40 MG PO DAILY, TAB Discharge Exam Patient reports feeling the same. He sometimes has shortness of breath at rest when his tremors become more severe and has TUBBS. He complains of intermittent wheezing as well as a non-productive but wet cough. He does deny chest pain today. He continues to complain of his chronic neuropathy in his feet. The patient denies fevers, chills, sweats, chest pain, palpitations, claudication, nausea, vomiting, abdominal pain, dysuria, hematuria, urinary retention, paralysis, weakness. Review of Systems: Constitutional: No fever, No chills, No sweats Eyes: No worsening of vision, No eye pain, No diplopia ENT: No hearing loss, No nasal symptoms, No trouble swallowing Respiratory: + cough, + wheezing, + shortness of breath, + dyspnea on exertion, No sputum Cardiovascular: No chest pain, No claudication, No palpitations Abdomen: No pain, No nausea, No vomiting Musculoskeletal: No joint pain, No muscle pain, No swelling Genitourinary - Male: No hematuria, No dysuria, No urinary retention Neurologic: + numbness/tingling (chronic), No paralysis, No weakness Integumentary: No rash, No itch, No color change Physical Exam: General Appearance: WD/WN, no apparent distress, + obese Eyes: normal inspection, PERRL, EOMI ENT: normal ENT inspection, hearing grossly normal, pharynx normal Neck: supple, no JVD, trachea midline Respiratory/Chest: lungs clear, no respiratory distress, + decreased breath sounds Cardiovascular: regular rate, rhythm, no gallop, no murmur Abdomen / GI: normal bowel sounds, non tender, soft Extremities: normal inspection, no calf tenderness, no pedal edema Neurologic/Psychiatric: alert, oriented x 3, + pertinent finding (tremor. flat affect) Skin: normal color, warm/dry, no rash (Ludivina Loving ., DEYA) Hospital Course 66 y/o male with a history of COPD, paroxysmal a-fib, HTN, HLD, CAD, DM II, Parkinson's disease, BPH, and LES who presents with 2+ weeks of worsening cough and dyspnea. COPD exacerbation--improving -Admit to telemetry. No acute events overnight. Pt in sinus rhythm with PVCs, HR 70s. Transfer to med/surg -D/C Solu-Medrol -Prednisone 40 mg PO BID. D/C on following taper: 40 mg PO BID x 1 more day, 40 mg PO qd x 2 days, 20 mg PO qd x 2 days, then stop -Xopenex/Atrovent nebs QIDR -Doxycycline 100 mg PO BID. 5 days completed, stop at discharge. -Continue home Advair BID and Spiriva -Continue Mucinex 1200 mg PO BID -O2 by protocol. Saturating well on room air -Repeat CXR stable, no changes ?Mild acute on chronic diastolic CHF--resolved -Had urine output after receiving Lasix 20 mg IV, but then developed NAYA -Hold further Lasix for now NAYA on CKD stage III--improving -Baseline creatine around 1.2 -Hold Lasix. Instructed patient to hold this until PCP f/u on 03/10. PCP can f /u on renal function and resume at later time -Creatinine improved to 1.54 on 03/06 Chest pain--resolved -No events on tele -Cardiac enzymes negative x 3 -May be related to pulmonary disease Paroxysmal a-fib--stable, currently in NSR -Continue amiodarone 200 mg PO qd -No AC due to previous hemoptysis HTN, HLD, CAD--stable. BP reportedly uncontrolled at home, but well controlled here w/home regimen -Continue ASA, amlodipine 10 mg PO qd, metoprolol succinate 75 mg PO hs, hydralazine 100 mg PO TID, and simvastatin 40 mg PO hs DM II--last HgbA1c checked 09/04/16 was 6.0. Diet controlled at home -Hyperglycemia due to steroids -Lantus 10 units SC BID -Insulin sliding scale -Check BSGs q ac and qhs -HgbA1c was 5.6 on 03/04 Neuropathy -Continue Cymbalta 30 mg PO qd and gabapentin 100 mg PO TID Parkinson's disease -Continue Sinemet 50/200 mg 2 tabs PO QID BPH -Continue Flomax 0.4 mg PO hs LES -Continue CPAP Constipation--stable. Pt denies constipation currently -Continue Colace 100 mg PO BID, scheduled Miralax daily -Pt also takes Amitiza at home DVT prophylaxis -Enoxaparin 40 mg SC q24h Code Status -Level I, FULL RESUSCITATION STATUS Total Time Spent: Greater than 30 minutes This includes examination of the patient, discharge planning, medication reconciliation, and communication with other providers. (Ludivina Loving ., RENOC) Discharge Instructions Please refer to the electronic Patient Visit Report (Discharge Instructions) for additional information. (Ludivina Loving ., JOSUE-C) Additional Copies To Jeromy Hanson M.D.; Elizabeth Culver, C.R.N.P. Reviewed: Pt Seen/Exam by Me (Jennifer Hill DO) History Pt is at baseline. He tells me he ambulated to down the aaron. Did have some SOB, but his usual. His welder journeyman arrived during our discussion and agrees that this is the case. He has been tolerating PO without issue. Chest pain at times, but improving and not as intense. Agree with HPI/ROS as noted. (Jennifer Hill, ) General Appearance: WD/WN, no apparent distress Respiratory: normal breath sounds, no respiratory distress Cardiovascular: regular rate, rhythm, no edema Gastrointestinal: non tender, soft Extremities: non-tender, no pedal edema Neurologic/Psychiatric: alert, oriented x 3, other (UE and head tremor noted) Skin Characteristics: normal color, warm/dry (Jennifer Hill, DO) Assessment/Plan Agree with plan as outlined above COPD exacerbation: feels no improvement, wheezing resolved CHF on admission and is improved NAYA, improving PT recs for home PT, OT recs for home (Jennifer iHll, DO)
== END 2017-03-06 12:40 | disposition home or self-care (01) | DRG 291 ==
LOC: EDBD 12:06 → C.EDC 12:09 → C.2T 14:41 → EDBEDREQ 14:43 → ENRESERV 14:54 → EDBEDREQ 03-05 15:00 → ENRESERV 03-05 15:24 → C.MS2W 03-05 16:48
PROVIDERS: ADMIT Internal Medicine; ATTEND Family Medicine
DX: I13.0 Hypertensive heart and chronic kidney disease with heart failure and stage 1 through stage 4 chronic kidney disease, or unspecified chronic kidney disease (principal); I50.33 Acute on chronic diastolic (congestive) heart failure; J44.1 Chronic obstructive pulmonary disease with (acute) exacerbation; N17.9 Acute kidney failure, unspecified; E78.5 Hyperlipidemia, unspecified; I12.9 Hypertensive chronic kidney disease with stage 1 through stage 4 chronic kidney disease, or unspecified chronic kidney disease; G20 Parkinson's disease; F17.200 Nicotine dependence, unspecified, uncomplicated; G47.33 Obstructive sleep apnea (adult) (pediatric); K59.00 Constipation, unspecified; N18.3 Chronic kidney disease, stage 3 (moderate); Z79.82 Long term (current) use of aspirin; Z87.01 Personal history of pneumonia (recurrent); Z82.49 Family history of ischemic heart disease and other diseases of the circulatory system

== ENCOUNTER → 2017-03-10 | Outpatient (CLI) | payer OTHER ==
[~2017-03-10] MED LIST changes: -FRS/40 PO; +IPRASOL4 INH; +PRD20 PO
[2017-03-10 16:57] LABS: BLOOD UREA NITROGEN 26 mg/dl (7-18); BUN/CREATININE RATIO 18.8 (10-20); CALCIUM 8.6 mg/dl (8.5-10.1); CARBON DIOXIDE 31 mmol/L (21-32); CHLORIDE 108 mmol/L (98-107); CREATININE 1.39 mg/dl (0.60-1.40); GLUCOSE 128 mg/dl (70-99); POTASSIUM 4.7 mmol/L (3.5-5.1); SODIUM 141 mmol/L (136-145)
== END | disposition home or self-care (01) ==
LOC: C.LABBFT 15:33
PROVIDERS: ATTEND Nurse Practitioner
DX: G20 Parkinson's disease (principal); J44.9 Chronic obstructive pulmonary disease, unspecified; I50.32 Chronic diastolic (congestive) heart failure; R53.81 Other malaise; J44.1 Chronic obstructive pulmonary disease with (acute) exacerbation

== ENCOUNTER → 2017-04-07 | Outpatient (CLI) | payer OTHER ==
[~2017-04-07] MED LIST changes: +ACET-1047 PO; -AMLO-114 PO; +AMLO10TA3 PO; +CARB25TA12 PO; +CYCL10TA6 PO; +DAPT500I IV; +DOXY100C76 PO; +DULO60CA44 PO; +FURO-85 PO; +FURO20TA PO; +GADAVIST IV PRN; +IPRA-64 INH; -IPRASOL4 INH; +MCRK20 PO; -METO50TA7 PO; +METO50TA8 PO; +MGNO400 PO; +PRED20TA PO; +RXC5 PO; +TIOT1SPR INH; +ULT50X PO; +XPNINS125 INH; -XPNINS125 PO
--- NOTE | 2017-04-07 10:46 | DIAGNOSTIC IMAGING REPORT ---
LUMBAR SPINE COMBINATION CLINICAL HISTORY: 66 years-old Male presenting with LUMBAR STENOSIS/CLEARANCE WAS FROM , severe lumbar pain radiating into the legs, left worse than right,. Numbness, history of prior infections of the lumbar spine and prior surgery, question of Parkinson's disease. TECHNIQUE: Multisequence, multiplanar MR imaging of the lumbar spine was performed before and after the administration of intravenous contrast. IV contrast: 9 mL of Gadavist. COMPARISON: 07/30/2016. FINDINGS: Localizer images: Prominent right renal cyst. Cholelithiasis. Postsurgical changes of the spine. Bilateral transpedicular screw and loni fixation at L4-5 with L4 laminectomy again noted. Mild though extensive edema evident in the superficial operative bed, which has significantly decreased from prior exam. The previously noted fluid collection along the medial aspect of the left L4 screw has resolved. No new collection. The previously noted prominent epidural soft tissue effacing the left lateral recess and left aspect of the thecal sac at the L4 level has also significantly decreased, essentially resolved. This may have represented exuberant granulation tissue. No epidural collection. Normal lumbar lordosis. The spinal canal is narrow on a developmental basis. Regional susceptibility artifact at the screws limits evaluation for bony edema within the L4 and L5 vertebral bodies. Within this limitation, bone marrow signal intensity at the operative levels is essentially normal. Nonoperative levels demonstrate normal height, alignment, and bone marrow signal intensity of the vertebral bodies. Intervertebral discs essentially preserved. Calcification may be present within the L1-2 disc. Multilevel degenerative changes further detailed below: L1-2: No significant neural foraminal or spinal canal narrowing area L2-3: No significant neural foraminal or spinal canal narrowing. L3-4: Facet arthropathy and ligamentum flavum result in mild bilateral neural foraminal narrowing. No significant spinal canal narrowing. L4-5: Regional susceptibility artifact makes evaluation of the neural foramina and spinal canal somewhat difficult. Within the limitation, mild to moderate bilateral neural foraminal narrowing is suspected. There is also possible mass effect on the bilateral exiting L4 nerve root. There is persistent circumferential effacement of the thecal sac with near complete effacement of CSF signal intensity at this level. This is presumably due to granulation tissue. A degree of stenosis is not significantly changed from the prior exam. L5-S1: Mild disc bulge and posterior osteophytosis results in mild effacement of the anterior thecal sac. Evaluation of the neural foramina is highly limited due to adjacent susceptibility artifact. This Spinal cord ends in good position at L1. Cauda equina crowding as mentioned above. Otherwise the cauda equina is normal in morphology. Paraspinal soft tissues demonstrate postsurgical change and persistent nonspecific superficial subcutaneous edema in the lower back. Again, no focal collection on the current exam. IMPRESSION: 1. Interval resolution of the previously noted collection adjacent to the left transpedicular screw at L4. Continued interval decrease in edema within the operative bed. This no new collection. 2. Bone marrow signal intensity is normal. No evidence of discitis osteomyelitis. 3. Similar degree of severe spinal stenosis at L4-5 resulting from exuberant granulation tissue. 4. Additional degenerative changes as above including neural foraminal narrowing. Electronically signed by: Raymond Campa M.D. 04/07/2017 10:44 AM Dictated Date/Time: 04/07/2017 10:31 AM
== END | disposition home or self-care (01) ==
LOC: C.MRIBC 09:16
PROVIDERS: ATTEND Pain Medicine Interventional Pain Medicine
DX: M48.062 Spinal stenosis, lumbar region with neurogenic claudication (principal); M47.896 Other spondylosis, lumbar region

== ENCOUNTER → 2017-04-21 | Outpatient (CLI) | payer OTHER ==
[~2017-04-21] MED LIST changes: -GADAVIST IV PRN
[2017-04-21 17:19] LABS: BASO ABS # 0.14 K/uL (0-0.2); EOS % 1.2 %; EOS ABS # 0.16 K/uL (0-0.5); HEMATOCRIT 42.3 % (42-52); HEMOGLOBIN 13.4 g/dL (14.0-18.0); IG# 0.17 K/uL (0.00-0.02); LYMPH % 13.5 %; LYMPH ABS # 1.82 K/uL (1.2-3.4); MEAN CELL VOLUME 99.3 fL (80-100); MEAN CORPUSCULAR HEMOGLOBIN 31.5 pg (25-34); MEAN CORPUSCULAR HGB CONC 31.7 g/dl (32-36); MEAN PLATELET VOLUME 10.7 fL (7.4-10.4); MONO % 8.8 %; MONO ABS # 1.19 K/uL (0.11-0.59); NEUT % 74.2 %; NEUT ABS # 10.03 K/uL (1.4-6.5); PLATELET COUNT 168 K/uL (130-400); RED CELL DISTRIBUTION WIDTH CV 15.8 % (11.5-14.5); RED CELL DISTRIBUTION WIDTH SD 57.2 fL (36.4-46.3); WHITE BLOOD COUNT 13.51 K/uL (4.8-10.8)
[2017-04-21 19:06] LABS: ALBUMIN 3.6 gm/dl (3.4-5.0); BLOOD UREA NITROGEN 20 mg/dl (7-18); CALCIUM 9.3 mg/dl (8.5-10.1); CARBON DIOXIDE 29 mmol/L (21-32); CREATININE 1.63 mg/dl (0.60-1.40); GLUCOSE 117 mg/dl (70-99); PHOSPHORUS 2.3 mg/dl (2.5-4.9); POTASSIUM 4.1 mmol/L (3.5-5.1); SODIUM 138 mmol/L (136-145)
[2017-04-22 06:07] LABS: HEMOGLOBIN A1C 5.4 % (4.5-5.6)
== END | disposition home or self-care (01) ==
LOC: C.LABBFT 13:14
PROVIDERS: ATTEND Internal Medicine
DX: N18.9 Chronic kidney disease, unspecified (principal); E11.9 Type 2 diabetes mellitus without complications; D64.9 Anemia, unspecified

== ENCOUNTER → 2017-06-25 | Outpatient (CLI) | payer OTHER ==
[~2017-06-25] VITALS: Ht 177.8 cm; Wt 91.9 kg
[~2017-06-25] MED LIST changes: -ACET-1047 PO; +AMLO-114 PO; -AMLO10TA3 PO; -CARB25TA12 PO; -CYCL10TA6 PO; -DAPT500I IV; -DOXY100C76 PO; -DULO60CA44 PO; -FURO-85 PO; -FURO20TA PO; -IPRA-64 INH; +IPRASOL4 INH; -MCRK20 PO; -MGNO400 PO; -PRED20TA PO; -RXC5 PO; -TIOT1SPR INH; -ULT50X PO; -XPNINS125 INH; +XPNINS125 PO
[2017-06-25 14:23] VITALS: BP 131/75; PULSE 66; Ht 177.8 cm; Wt 91.9 kg
== END | disposition home or self-care (01) ==
LOC: C.NEUR 12:30
PROVIDERS: ATTEND Physician Assistant
DX: G47.33 Obstructive sleep apnea (adult) (pediatric) (principal)

== ENCOUNTER → 2017-07-21 | Outpatient (CLI) | payer OTHER ==
[2017-07-21 15:41] LABS: BASO ABS # 0.13 K/uL (0-0.2); EOS % 1.4 %; EOS ABS # 0.19 K/uL (0-0.5); HEMATOCRIT 43.7 % (42-52); HEMOGLOBIN 14.1 g/dL (14.0-18.0); IG# 0.05 K/uL (0.00-0.02); LYMPH % 19.2 %; LYMPH ABS # 2.59 K/uL (1.2-3.4); MEAN CELL VOLUME 93.4 fL (80-100); MEAN CORPUSCULAR HEMOGLOBIN 30.1 pg (25-34); MEAN CORPUSCULAR HGB CONC 32.3 g/dl (32-36); MEAN PLATELET VOLUME 11.3 fL (7.4-10.4); MONO % 10.3 %; MONO ABS # 1.39 K/uL (0.11-0.59); NEUT % 67.7 %; NEUT ABS # 9.12 K/uL (1.4-6.5); PLATELET COUNT 136 K/uL (130-400); RED CELL DISTRIBUTION WIDTH CV 15.9 % (11.5-14.5); RED CELL DISTRIBUTION WIDTH SD 54.4 fL (36.4-46.3); WHITE BLOOD COUNT 13.47 K/uL (4.8-10.8)
== END | disposition home or self-care (01) ==
LOC: C.LAB 14:19
PROVIDERS: ATTEND Internal Medicine Cardiovascular Disease
DX: I25.5 Ischemic cardiomyopathy (principal); D64.9 Anemia, unspecified; N17.9 Acute kidney failure, unspecified

== ENCOUNTER 2017-09-06 13:50 | Emergency (ER) | payer OTHER ==
[~2017-09-06] VITALS: Ht 177.8 cm; Wt 86.0 kg
[2017-09-06 13:55] VITALS: TEMP 36.8; Ht 177.8 cm; Wt 86.0 kg
[2017-09-06] MEDS ORDERED: CARBIDOPA/LEVODOPA 50/200MG EXT REL TAB PO STA (14:03)
[2017-09-06] MEDS ORDERED: SODIUM CHLORIDE 0.9% 500ML 500 ML IV STA (14:03)
--- NOTE | 2017-09-06 14:10 | EMERGENCY ROOM VISIT NOTE ---
History Report prepared by Sherrie: Perez Buitrago Under the Supervision of: Dr. Miguel Cavazos M.D. First contact with patient: 13:59 Chief Complaint: HYPERTENSION Stated Complaint: HIGH BLOOD PRESSURE,LOST 8 LBS IN 8 DAYS,NOT EATIN History of Present Illness The patient is a 66 year old male with a history of Parkinson's and hypertension who presents to the Emergency Room with worsening weight loss over the past week. Per the patient's family, the patient has lost 8 pounds in the past 8 days, and he has not been eating well at all. He is getting increasingly weak. The patient's blood pressure was noted to be very low (98/60) when he first woke up around 4 hours ago, which is unusual given that he has high blood pressure. The patient's blood pressure was then checked a bit later, and it went up to 180 systolic, which is unusual because he is on medications for hypertension. The patient has a history of a double bypass. He takes Sinemet 4 times per day, and is due for another dose at this time. Per the patient's family, the patient refused to take his night-time doses of his Parkinson's medications for 2 nights 2 days ago. His head shaking has noted to be worsening recently. The patient has been complaining of headaches recently. The patient notes that his cough has worsened over the past week, and he has had some yellow sputum at times. Any fevers were denied on behalf of the patient. The patient has been off his Lasix for a few days due to the weight loss. Source of History: patient, family Onset: Over past week Position: other (global) Symptom Intensity: lost 8 pounds in past 8 days Quality: other (weight loss) Timing: worsening Associated Symptoms: + headache, + cough (worsening), + weakness, No fevers Note: Associated symptoms: Fluctuating blood pressure today. Head shaking worsening. Review of Systems See HPI for pertinent positives and negatives. A total of ten systems were reviewed and were otherwise negative. Past Medical & Surgical Medical Problems: (1) Abscess in epidural space of lumbar spine (2) Acute on chronic diastolic (congestive) heart failure (3) Back pain (4) Bronchitis (5) Bulging disc (6) Chest wall pain (7) COPD (chronic obstructive pulmonary disease) (8) COPD exacerbation (9) Fall (10) Hallucinations (11) Heart disease (12) Hyperlipidemia (13) Hypertension (14) Hypoxia (15) inability to ambulate (16) Lumbar stenosis with neurogenic claudication (17) Parkinson disease (18) Parkinsons disease (19) Pneumonia involving right lung (20) Radicular pain of right lower extremity (21) Seizure-like activity (22) Shoulder pain Surgical Problems: (1) History of appendectomy (2) S/P CABG x 2 Family History FH: heart disease Hypertension Social History Smoking Status: Current Every Day Smoker Alcohol Use: none Drug Use: none Marital Status: Housing Status: assisted living Occupation Status: retired, disabled Current/Historical Medications Scheduled Amiodarone HCl (Amiodarone HCl), 200 MG PO DAILY Amlodipine (Norvasc), 10 MG PO DAILY Aspirin (Aspirin Ec), 81 MG PO DAILY Carbidopa/Levodopa (Sinemet Cr 50MG/200MG), 2 TAB PO QID Cholecalciferol (Vitamin D3), 1 CAP PO DAILY Desloratadine (Clarinex), 5 MG PO DAILY Docusate Sodium (Colace), 1 CAP PO BID Duloxetine HCl (Cymbalta), 30 MG PO DAILY Fluticasone Prop/Salmeterol (Advair Diskus 250-50 Mcg/Dose), 1 PUFF INH Q12 Hydralazine Hcl (Apresoline), 1 TAB PO TID Ipratropium-Albuterol (Duoneb), 1 TREATMENT INH Q4H Levalbuterol (Levalbuterol HCl), 1.25 MG PO Q6 Lubiprostone (Amitiza), 8 MCG PO DAILY Metoprolol Succ (Toprol Xl) (Toprol-Xl), 75 MG PO HS Multivitamin (Multivitamin), 1 TAB PO DAILY Pantoprazole Sodium (Protonix), 20 MG PO DAILY Polyethylene Glycol 3350 (Miralax), 17 GM PO DAILY Prednisone (Prednisone), 3 TAB PO DAILY Simvastatin (Zocor), 40 MG PO QPM Tamsulosin HCl (Tamsulosin HCl), 0.4 MG PO HS Tiotropium [place] (Spiriva Handihaler), 1 CAP PO DAILY Scheduled PRN Levalbuterol Hcl (Levalbuterol), 1.25 MG PO Q2H PRN for SOB/Wheezing Miscellaneous Medications Doxycycline Monohydrate (Monodox), 100 MG PO Allergies Coded Allergies: BEE STING (Verified Allergy, Severe, ANAPHYLAXIS, 11/05/16) Triptans (Verified Allergy, Unknown, unknown, 11/05/16) Benztropine (Verified Adverse Reaction, Intermediate, hallucinations/ mental confusion, 11/05/16) Eletriptan (Verified Adverse Reaction, Intermediate, CONFUSION, 11/05/16) Ropinirole (Verified Adverse Reaction, Unknown, unknown, 11/05/16) Physical Exam Vital Signs Date Time Temp Pulse Resp B/P (MAP) Pulse Ox O2 Delivery O2 Flow Rate FiO2 09/06/17 17:24 78 20 97 09/06/17 16:43 77 22 96 Room Air 09/06/17 16:14 140/79 09/06/17 15:24 67 20 94 Room Air 09/06/17 14:30 78 09/06/17 14:29 Room Air 09/06/17 13:55 36.8 79 20 183/74 95 Room Air Physical Exam GENERAL: Awake, alert, in no distress HENT: Normocephalic, atraumatic. Oropharynx unremarkable. EYES: Normal conjunctiva. Sclera non-icteric. NECK: Supple. No nuchal rigidity. FROM. No JVD. RESPIRATORY: Scattered wheezes and rhonchi, otherwise clear. CARDIAC: Regular rate, normal rhythm. Extremities warm and well perfused. Pulses equal. ABDOMEN: Soft, non-distended. No tenderness to palpation. No rebound or guarding. No masses. RECTAL: Deferred. MUSCULOSKELETAL: Chest examination reveals no tenderness. The back is symmetrical on inspection without obvious abnormality. There is no CVA tenderness to palpation. No joint edema. LOWER EXTREMITIES: Calves are equal size bilaterally and non-tender. Scant lower extremity edema. No discoloration. NEURO: Normal sensorium. Moving all extremities. Persistent resting tremors throughout. SKIN: No rash or jaundice noted. Medical Decision & Procedures ER Provider Diagnostic Interpretation: X-ray: Per my interpretation, radiologist review. CHEST ONE VIEW PORTABLE CLINICAL HISTORY: Atypical chest pain COMPARISON STUDY: March 04, 2017 FINDINGS: There are postsurgical changes of midline sternotomy. The heart is the upper limits of normal in size. There is stable mild interstitial thickening. There is no focal pulmonary consolidation. There is borderline elevation right hemidiaphragm.[ IMPRESSION: 1. Stable mild interstitial thickening 2. Borderline elevation right hemidiaphragm 3. No acute findings. No evidence of focal pulmonary consolidation Electronically signed by: Adrien Jean M.D. 09/06/2017 2:43 PM Dictated Date/Time: 09/06/2017 2:41 PM Laboratory Results 09/06/17 14:20 Red Blood Count 3.79, Mean Corpuscular Volume 93.1, Mean Corpuscular Hemoglobin 30.9, Mean Corpuscular Hemoglobin Concent 33.1, Mean Platelet Volume 9.8, Neutrophils (%) (Auto) 68.4, Lymphocytes (%) (Auto) 18.3, Monocytes (%) (Auto) 10.6, Eosinophils (%) (Auto) 1.5, Basophils (%) (Auto) 0.8, Neutrophils # (Auto ) 7.89, Lymphocytes # (Auto) 2.11, Monocytes # (Auto) 1.22, Eosinophils # (Auto ) 0.17, Basophils # (Auto) 0.09 09/06/17 14:20 Test 09/06/17 14:20 09/06/17 15:00 White Blood Count 11.53 K/uL (4.8-10.8) Red Blood Count 3.79 M/uL (4.7-6.1) Hemoglobin 11.7 g/dL (14.0-18.0) Hematocrit 35.3 % (42-52) Mean Corpuscular Volume 93.1 fL (80-100) Mean Corpuscular Hemoglobin 30.9 pg (25-34) Mean Corpuscular Hemoglobin Concent 33.1 g/dl (32-36) Platelet Count 143 K/uL (130-400) Mean Platelet Volume 9.8 fL (7.4-10.4) Neutrophils (%) (Auto) 68.4 % Lymphocytes (%) (Auto) 18.3 % Monocytes (%) (Auto) 10.6 % Eosinophils (%) (Auto) 1.5 % Basophils (%) (Auto) 0.8 % Neutrophils # (Auto) 7.89 K/uL (1.4-6.5) Lymphocytes # (Auto) 2.11 K/uL (1.2-3.4) Monocytes # (Auto) 1.22 K/uL (0.11-0.59) Eosinophils # (Auto) 0.17 K/uL (0-0.5) Basophils # (Auto) 0.09 K/uL (0-0.2) RDW Standard Deviation 59.3 fL (36.4-46.3) RDW Coefficient of Variation 17.4 % (11.5-14.5) Immature Granulocyte % (Auto) 0.4 % Immature Granulocyte # (Auto) 0.05 K/uL (0.00-0.02) Prothrombin Time 10.5 SECONDS (9.0-12.0) Prothromb Time International Ratio 1.0 (0.9-1.1) Anion Gap 10.0 mmol/L (3-11) Est Creatinine Clear Calc Drug Dose 44.0 ml/min Estimated GFR () 48.4 Estimated GFR (Non- 41.7 BUN/Creatinine Ratio 8.9 (10-20) Calcium Level 8.7 mg/dl (8.5-10.1) Phosphorus Level 3.7 mg/dl (2.5-4.9) Magnesium Level 1.9 mg/dl (1.8-2.4) Total Bilirubin 0.7 mg/dl (0.2-1) Direct Bilirubin 0.2 mg/dl (0-0.2) Aspartate Amino Transf (AST/SGOT) 16 U/L (15-37) Alanine Aminotransferase (ALT/SGPT) 6 U/L (12-78) Alkaline Phosphatase 83 U/L (45-117) Total Creatine Kinase 65 U/L (39-308) Troponin I < 0.015 ng/ml (0-0.045) Pro-B-Type Natriuretic Peptide 688 pg/ml (0-900) Total Protein 6.8 gm/dl (6.4-8.2) Albumin 3.1 gm/dl (3.4-5.0) Lipase 63 U/L (73-393) Urine Color DK YELLOW Urine Appearance CLEAR (CLEAR) Urine pH 5.0 (4.5-7.5) Urine Specific [place] 1.028 (1.000-1.030) Urine Protein NEG (NEG) Urine Glucose (UA) NEG (NEG) Urine Ketones 1+ (NEG) Urine Occult Blood NEG (NEG) Urine Nitrite NEG (NEG) Urine Bilirubin NEG (NEG) Urine Urobilinogen NEG (NEG) Urine Leukocyte Esterase TRACE (NEG) Urine WBC (Auto) 1-5 /hpf (0-5) Urine RBC (Auto) 0-4 /hpf (0-4) Urine Hyaline Casts (Auto) >30 /lpf (0-5) Urine Epithelial Cells (Auto) >30 /lpf (0-5) Urine Bacteria (Auto) NEG (NEG) Urine Renal Epithelial Cells 0-5 /lpf (0-5) Urine Pathogenic Casts 0-3 WBC CASTS /lpf (0) Laboratory results reviewed by me Medications Administered Medications (Trade) Dose Ordered Sig/Igor Route Start Time Stop Time Status Last Admin Dose Admin Sodium Chloride 500 ml @ 999 mls/hr Q31M STAT IV 09/06/17 14:03 09/06/17 14:33 DC 09/06/17 14:37 999 MLS/HR Carbidopa/Levodopa (Sinemet Cr 50/ 200MG Tab) 1 tab NOW STAT PO 09/06/17 14:03 09/06/17 14:11 DC 09/06/17 14:37 1 TAB Prednisone (PredniSONE TAB) 60 mg NOW STAT PO 09/06/17 16:09 09/06/17 16:19 DC 09/06/17 16:23 60 MG Albuterol/ Ipratropium (Duoneb) 3 ml NOW STAT INH 09/06/17 16:09 09/06/17 16:19 DC 09/06/17 16:23 3 ML Acetaminophen (Tylenol Tab) 1,000 mg NOW STAT PO 09/06/17 16:09 09/06/17 16:19 DC 09/06/17 16:24 1,000 MG Carbidopa/Levodopa (Sinemet 25/ 100MG Tab) 1 tab NOW STAT PO 09/06/17 16:52 09/06/17 16:54 DC 09/06/17 17:05 1 TAB ECG Per My Interpretation Indication: weakness Rate (beats per minute): 76 Rhythm: sinus rhythm (based on lateral leads) Findings: other (extensive artifact due to constant resting tremors from Parkinson's) ED Course 1403: The patient was evaluated in room A11B. A complete history and physical exam was performed. 1610: I discussed the patient with Dr. Art - [facility] [place] [facility] - he provided some recommendations for the patient. 1700: I reevaluated the patient and he is resting comfortably. Discussed results and discharge instructions: he verbalized understanding and agreement. The patient is ready for discharge. Medical Decision I reviewed the patient's past medical history, medications, and the nursing notes as described above. Differential diagnosis: Etiologies such as viral syndrome, otitis, pharyngitis, pneumonia, influenza, meningitis, urinary tract infection, sepsis, bacteremia, as well as others were entertained. The patient is a 66-year-old gentleman with a past medical history of Parkinson' s who presents emergency department with worsening Parkinson symptoms over the past week with generalized weakness per hpi. On arrival the patient is no acute distress with persistent resting tremor throughout but no acute distress, afebrile stable vital signs. Lungs with scattered wheezes and rhonchi but otherwise clear. Exhibits persistent parkinson's dyskinesias of entire body. EKG limited 2/2 severe dyskinesia causing artifact although latera precordial leads appear unremarkable. Trop negative. WBC 11, nonspecific. Cr. 1.6 at recent baseline. UA negative for infection. Given report of increased cough in setting of smoking will treat for mild COPD flare with prednisone. Patient adamant that he does not want admission. Given no hypoxia and marginal sx from baseline, outpatient f/u is reasonable. Worsening parkinson's dyskinesias d/w Dr. Art, patient's neurologist with recommends modifying the patient's Sinemet regimen to 50/200 Cr bid and the patient's 25/100 qid. Findings and plan for follow-up reviewed with patient and . Patient and agreeable and d/c'd per discharge instructions. Medication Reconcilliation Current Medication List: was personally reviewed by me Blood Pressure Screening Patient's blood pressure: Elevated blood pressure Blood pressure disposition: Elevated BP felt to be situational Consults Time Called: 1605 Consulting Physician: Dr. Kaelyn [place] neurology Returned Call: 1610 I discussed the patient with Dr. Kaelyn [place] neurology - he provided some recommendations for the patient. Impression Primary Impression: COPD exacerbation Additional Impression: Dyskinesia due to Parkinson's disease Scribe Attestation The scribe's documentation has been prepared under my direction and personally reviewed by me in its entirety. I confirm that the note above accurately reflects all work, treatment, procedures, and medical decision making performed by me. Departure Information Dispostion Home / Self-Care Prescriptions Prednisone (Prednisone) 20 Mg Tab 3 TAB PO DAILY for 4 Days, #12 TAB FOR 4 DAYS Prov: Miguel Cavazos M.D. 09/06/17 Referrals Jeromy Hanson M.D. (PCP) Patient Instructions ED COPD Flare, [facility], Parkinson Disease Additional Instructions Please follow up with your Neurologist, Dr. Art, on as scheduled for re-evaluation. Your symptoms may possibly be related to mild COPD flare with worsening of your Parkinson's disease. Otherwise, your exam, EKG, chest xray, and lab results did not show signs of an emergent condition at this time. Prednisone as directed. Continue your home inhalers as prescribed. Your discussion with your neurologist we will attempt the following changes to your Sinemet regimen. Take your 25/100 tablets four times daily. Take your 50/200 Cr tablets 2 times daily. Return to the emergency department for worsening symptoms as described in the accompanying instructions. Problem Qualifiers
[2017-09-06 14:33] LABS: BASO % 0.8 %; BASO ABS # 0.09 K/uL (0-0.2); EOS % 1.5 %; EOS ABS # 0.17 K/uL (0-0.5); HEMATOCRIT 35.3 % (42-52); HEMOGLOBIN 11.7 g/dL (14.0-18.0); IG# 0.05 K/uL (0.00-0.02); LYMPH % 18.3 %; LYMPH ABS # 2.11 K/uL (1.2-3.4); MEAN CELL VOLUME 93.1 fL (80-100); MEAN CORPUSCULAR HEMOGLOBIN 30.9 pg (25-34); MEAN CORPUSCULAR HGB CONC 33.1 g/dl (32-36); MEAN PLATELET VOLUME 9.8 fL (7.4-10.4); MONO % 10.6 %; MONO ABS # 1.22 K/uL (0.11-0.59); NEUT % 68.4 %; NEUT ABS # 7.89 K/uL (1.4-6.5); PLATELET COUNT 143 K/uL (130-400); RED CELL DISTRIBUTION WIDTH CV 17.4 % (11.5-14.5); RED CELL DISTRIBUTION WIDTH SD 59.3 fL (36.4-46.3); WHITE BLOOD COUNT 11.53 K/uL (4.8-10.8)
--- NOTE | 2017-09-06 14:44 | DIAGNOSTIC IMAGING REPORT ---
CHEST ONE VIEW PORTABLE CLINICAL HISTORY: Atypical chest pain COMPARISON STUDY: March 04, 2017 FINDINGS: There are postsurgical changes of midline sternotomy. The heart is the upper limits of normal in size. There is stable mild interstitial thickening. There is no focal pulmonary consolidation. There is borderline elevation right hemidiaphragm.[ IMPRESSION: 1. Stable mild interstitial thickening 2. Borderline elevation right hemidiaphragm 3. No acute findings. No evidence of focal pulmonary consolidation Electronically signed by: Adrien Jean M.D. 09/06/2017 2:43 PM Dictated Date/Time: 09/06/2017 2:41 PM
[2017-09-06 15:36] LABS: ALBUMIN 3.1 gm/dl (3.4-5.0); ALKALINE PHOSPHATASE 83 U/L (45-117); ALT/SGPT 6 U/L (12-78); AST/SGOT 16 U/L (15-37); BLOOD UREA NITROGEN 15 mg/dl (7-18); CALCIUM 8.7 mg/dl (8.5-10.1); CARBON DIOXIDE 27 mmol/L (21-32); CREATININE 1.66 mg/dl (0.60-1.40); GLUCOSE 81 mg/dl (70-99); LIPASE 63 U/L (73-393); PHOSPHORUS 3.7 mg/dl (2.5-4.9); POTASSIUM 3.8 mmol/L (3.5-5.1); SODIUM 138 mmol/L (136-145); TOTAL PROTEIN 6.8 gm/dl (6.4-8.2)
[2017-09-06] MEDS ORDERED: ACETAMINOPHEN 500 MG TAB PO STA (16:09)
[2017-09-06] MEDS ORDERED: ALBUT/IPRATROP 3MG/0.5MG NEB 3 ML VIAL INH STA (16:09)
[2017-09-06] MEDS ORDERED: DOXY100C76 PO (16:11)
[2017-09-06 16:14] VITALS: BP 140/79
[2017-09-06] MEDS ORDERED: CARBIDOPA/LEVODOPA 25/100MG TAB PO STA (16:52)
[2017-09-06] MEDS ORDERED: PRED20TA PO (16:59)
[2017-09-06 17:24] VITALS: PULSE 78; O2SAT 97
== END 2017-09-06 17:25 | disposition home or self-care (01) ==
LOC: C.EDB 13:52 → C.EDA 17:25
DX: J44.1 Chronic obstructive pulmonary disease with (acute) exacerbation (principal); R63.4 Abnormal weight loss; G24.9 Dystonia, unspecified; G20 Parkinson's disease; I50.33 Acute on chronic diastolic (congestive) heart failure; E78.5 Hyperlipidemia, unspecified; I11.0 Hypertensive heart disease with heart failure; Z87.01 Personal history of pneumonia (recurrent); Z95.1 Presence of aortocoronary bypass graft; Z82.49 Family history of ischemic heart disease and other diseases of the circulatory system; F17.210 Nicotine dependence, cigarettes, uncomplicated; Z79.82 Long term (current) use of aspirin; Z79.899 Other long term (current) drug therapy; Z91.030 Bee allergy status; Z88.8 Allergy status to other drugs, medicaments and biological substances

== ENCOUNTER 2017-11-03 17:15 | Inpatient (IN) | payer OTHER ==
[~2017-11-03] VITALS: Ht 177.8 cm; Wt 92.4 kg
[~2017-11-03 17:15] MED LIST changes: -AMLO-114 PO; +AMLO10TA3 PO; +DOXY100C76 PO; +IPRA-64 INH; -IPRASOL4 INH; -NRN100 PO; -POTA20TA13 PO; -PRD20 PO; -PSEU60TA80 PO
[2017-11-03] MEDS ORDERED: SODIUM CHLORIDE 0.9% 1000ML 1,000 ML IV STA (17:42)
[2017-11-03] MEDS ORDERED: CEFEPIME IV 2,000 MG in DEXTROSE 5% 100ML 100 ML IV STA (17:42)
[2017-11-03] MEDS ORDERED: DAPTOmycin IV 540 MG in SODIUM CHLORIDE 0.9% 50ML 50 ML IV STA (17:42)
--- NOTE | 2017-11-03 18:01 | DIAGNOSTIC IMAGING REPORT ---
CHEST ONE VIEW PORTABLE CLINICAL HISTORY: Sepsis. COMPARISON STUDY: Chest radiograph September 06, 2017. FINDINGS: Median sternotomy wires and mediastinal surgical clips are noted. Moderate cardiomegaly is unchanged. Mild interstitial prominence is unchanged. There is no evidence for overt edema. No pneumothorax or pleural effusion is noted. Elevation the right hemidiaphragm is unchanged. Several old right rib fractures are incidentally noted. IMPRESSION: No acute cardiopulmonary findings. No change in appearance of the chest. Electronically signed by: Gerald Emerson M.D. 11/03/2017 6:00 PM Dictated Date/Time: 11/03/2017 5:57 PM
[2017-11-03] MEDS ORDERED: CARB25TA12 PO (18:15)
[2017-11-03] MEDS ORDERED: DULO60CA44 PO (18:15)
[2017-11-03] MEDS ORDERED: FURO-85 PO (18:17)
[2017-11-03] MEDS ORDERED: CYCL10TA6 PO (18:18)
[2017-11-03 18:22] LABS: BASO % 0.8 %; EOS % 1.1 %; EOS ABS # 0.15 K/uL (0-0.5); HEMATOCRIT 33.9 % (42-52); HEMOGLOBIN 10.7 g/dL (14.0-18.0); LYMPH % 12.1 %; LYMPH ABS # 1.61 K/uL (1.2-3.4); MEAN CELL VOLUME 94.7 fL (80-100); MEAN CORPUSCULAR HEMOGLOBIN 29.9 pg (25-34); MEAN CORPUSCULAR HGB CONC 31.6 g/dl (32-36); MEAN PLATELET VOLUME 10.6 fL (7.4-10.4); MONO % 11.7 %; MONO ABS # 1.56 K/uL (0.11-0.59); NEUT % 73.5 %; NEUT ABS # 9.79 K/uL (1.4-6.5); NUCLEATED RED BLOOD CELL ABS 0.02 K/uL (0-0); PLATELET COUNT 197 K/uL (130-400); RED CELL DISTRIBUTION WIDTH CV 15.5 % (11.5-14.5); RED CELL DISTRIBUTION WIDTH SD 53.3 fL (36.4-46.3); WHITE BLOOD COUNT 13.31 K/uL (4.8-10.8)
[2017-11-03 18:42] LABS: ALBUMIN 2.7 gm/dl (3.4-5.0); ALKALINE PHOSPHATASE 122 U/L (45-117); ALT/SGPT < 6 U/L (12-78); AST/SGOT 13 U/L (15-37); BLOOD UREA NITROGEN 17 mg/dl (7-18); CALCIUM 8.8 mg/dl (8.5-10.1); CARBON DIOXIDE 30 mmol/L (21-32); GLUCOSE 88 mg/dl (70-99); POTASSIUM 3.9 mmol/L (3.5-5.1); SODIUM 137 mmol/L (136-145); TOTAL PROTEIN 7.2 gm/dl (6.4-8.2)
--- NOTE | 2017-11-03 20:25 | EMERGENCY ROOM VISIT NOTE ---
History Report prepared by Sherrie: Izabella Keen Under the Supervision of: Dr. Yonis Garcia D.O. First contact with patient: 17:33 Chief Complaint: REFERRED BY DOCTOR Stated Complaint: DOC REFERRED;DR OWUSU History of Present Illness The patient is a 66 year old male who presents to the Emergency Room for a referral by a doctor. The patient states that he has a history of back problems that have required 4 back surgeries. He notes that Dr. Wheeler is the one who has done his surgeries for him. He states that his last one was one year ago. He reports that the last 2 surgeries he has developed MRSA and started seeing Dr. Owusu because of it. He states that he is on Doxycycline 2 times a day because of his past. The patient states that he had an MRI done today that was ordered by Dr. Owusu. He reports that this was due to his back swelling for the past month. He states that along with the swelling he has had poor balance and right leg weakness. The patient states that Dr. Owusu called him today saying that the MRI showed abnormalities and to go to the ED right away. He notes that he was not notified of what the abnormalities are. The patient complains of right leg cramping and hot flashes. The patient denies fever, chills, nausea, vomiting, and leg swelling. Source of History: patient Onset: prior to arrival Position: back Quality: other (swelling, refferal) Timing: constant Associated Symptoms: + weakness, No fevers, No chills, No nausea, No vomiting Note: The patient complains of poor balance, right leg cramping, and hot flashes. The patient denies leg swelling. Review of Systems See HPI for pertinent positives & negatives. A total of 10 systems reviewed and were otherwise negative. Past Medical & Surgical Medical Problems: (1) Abscess in epidural space of lumbar spine (2) Acute on chronic diastolic (congestive) heart failure (3) Back pain (4) Bronchitis (5) Bulging disc (6) Chest wall pain (7) COPD (chronic obstructive pulmonary disease) (8) COPD exacerbation (9) Fall (10) Hallucinations (11) Heart disease (12) Hx MRSA infection (13) Hyperlipidemia (14) Hypertension (15) Hypoxia (16) inability to ambulate (17) Lumbar stenosis with neurogenic claudication (18) Parkinson disease (19) Parkinsons disease (20) Pneumonia involving right lung (21) Radicular pain of right lower extremity (22) Seizure-like activity (23) Shoulder pain Surgical Problems: (1) History of appendectomy (2) History of back surgery (3) S/P CABG x 2 Family History FH: heart disease Hypertension Social History Smoking Status: Current Every Day Smoker Alcohol Use: none Drug Use: none Marital Status: Housing Status: assisted living Occupation Status: retired, disabled Current/Historical Medications Scheduled Amiodarone HCl (Amiodarone HCl), 200 MG PO DAILY Amlodipine (Norvasc), 10 MG PO DAILY Aspirin (Aspirin Ec), 81 MG PO DAILY Carbidopa/Levodopa (Sinemet Cr 50MG/200MG), 1 TAB PO BID Carbidopa/Levodopa (Sinemet 25MG/100MG), 4 TAB PO QID Cholecalciferol (Vitamin D3), 1 CAP PO DAILY Desloratadine (Clarinex), 5 MG PO DAILY Docusate Sodium (Colace), 1 CAP PO TID Doxycycline Monohydrate (Monodox), 100 MG PO BID Duloxetine Hcl (Cymbalta), 60 MG PO DAILY Fluticasone Prop/Salmeterol (Advair Diskus 250-50 Mcg/Dose), 1 PUFF INH Q12 Hydralazine Hcl (Apresoline), 1 TAB PO TID Ipratropium-Albuterol (Duoneb), 1 TREATMENT INH Q4H Levalbuterol (Levalbuterol HCl), 1.25 MG PO Q6 Lubiprostone (Amitiza), 8 MCG PO TID Metoprolol Succ (Toprol Xl) (Toprol-Xl), 75 MG PO HS Multivitamin (Multivitamin), 1 TAB PO DAILY Pantoprazole Sodium (Protonix), 20 MG PO DAILY Polyethylene Glycol 3350 (Miralax), 17 GM PO DAILY Simvastatin (Zocor), 40 MG PO QPM Tamsulosin HCl (Tamsulosin HCl), 0.4 MG PO HS Tiotropium [place] (Spiriva Handihaler), 1 CAP PO DAILY Scheduled PRN Cyclobenzaprine Hcl (Flexeril), 10 MG PO TID PRN for Muscle Spasms Furosemide (Lasix), Unknown Dose PO for WEIGHT GAIN Levalbuterol Hcl (Levalbuterol), 1.25 MG PO Q2H PRN for SOB/Wheezing Allergies Coded Allergies: BEE STING (Verified Allergy, Severe, ANAPHYLAXIS, 11/03/17) Triptans (Verified Allergy, Unknown, unknown, 11/03/17) Benztropine (Verified Adverse Reaction, Intermediate, hallucinations/ mental confusion, 11/03/17) Eletriptan (Verified Adverse Reaction, Intermediate, CONFUSION, 11/03/17) Ropinirole (Verified Adverse Reaction, Unknown, unknown, 11/03/17) Physical Exam Vital Signs Date Time Temp Pulse Resp B/P (MAP) Pulse Ox O2 Delivery O2 Flow Rate FiO2 11/03/17 18:48 77 160/141 95 Room Air 11/03/17 18:20 97 Room Air 11/03/17 17:21 36.6 88 22 108/62 97 Room Air Physical Exam GENERAL: Patient is awake, alert, and anxious appearing. EYES: The conjunctivae are clear. The pupils are round and reactive. EARS, NOSE, MOUTH AND THROAT: The nose is without any evidence of any deformity. Mucous membranes are moist. Tongue is midline NECK: The neck is nontender and supple. RESPIRATORY: Scattered rhonchi noted throughout with diffuse expiratory wheezing in all lung mcgill. No tachypnea or conversational dyspnea. CARDIOVASCULAR: Regular rate and rhythm noted. There no murmurs rubs or gallops normal S1 normal S2 GASTROINTESTINAL: The abdomen is soft. Bowel sounds are present in all quadrants. Abdomen is nontender. BACK: Diffuse lumbar tenderness to palpation. No erythema or swelling is appreciated. MUSCULOSKELETAL/EXTREMITIES: There is no evidence of gross deformity. Full range of motion is noted in the hips and shoulders. SKIN: There is no obvious evidence of any rash. There are no petechiae, pallor or cyanosis noted. Trace pedal edema bilaterally. NEUROLOGIC: Patient is awake alert and oriented x3. Strength was diminished in the right lower extremity. Patellar tendon reflexes were 2+ in the left and 1+ in the right. Medical Decision & Procedures ER Provider Diagnostic Interpretation: Radiology results as stated below per my review and radiologist interpretation: CHEST ONE VIEW PORTABLE CLINICAL HISTORY: Sepsis. COMPARISON STUDY: Chest radiograph September 06, 2017. FINDINGS: Median sternotomy wires and mediastinal surgical clips are noted. Moderate cardiomegaly is unchanged. Mild interstitial prominence is unchanged. There is no evidence for overt edema. No pneumothorax or pleural effusion is noted. Elevation the right hemidiaphragm is unchanged. Several old right rib fractures are incidentally noted. IMPRESSION: No acute cardiopulmonary findings. No change in appearance of the chest. Electronically signed by: Gerald Emerson M.D. 11/03/2017 6:00 PM Dictated Date/Time: 11/03/2017 5:57 PM Laboratory Results 11/03/17 18:03 Red Blood Count 3.58, Mean Corpuscular Volume 94.7, Mean Corpuscular Hemoglobin 29.9, Mean Corpuscular Hemoglobin Concent 31.6, Mean Platelet Volume 10.6, Neutrophils (%) (Auto) 73.5, Lymphocytes (%) (Auto) 12.1, Monocytes (%) (Auto) 11.7, Eosinophils (%) (Auto) 1.1, Basophils (%) (Auto) 0.8, Neutrophils # (Auto ) 9.79, Lymphocytes # (Auto) 1.61, Monocytes # (Auto) 1.56, Eosinophils # (Auto ) 0.15, Basophils # (Auto) 0.10 11/03/17 18:03 Test 11/03/17 18:03 11/03/17 18:09 White Blood Count 13.31 K/uL (4.8-10.8) Red Blood Count 3.58 M/uL (4.7-6.1) Hemoglobin 10.7 g/dL (14.0-18.0) Hematocrit 33.9 % (42-52) Mean Corpuscular Volume 94.7 fL (80-100) Mean Corpuscular Hemoglobin 29.9 pg (25-34) Mean Corpuscular Hemoglobin Concent 31.6 g/dl (32-36) Platelet Count 197 K/uL (130-400) Mean Platelet Volume 10.6 fL (7.4-10.4) Neutrophils (%) (Auto) 73.5 % Lymphocytes (%) (Auto) 12.1 % Monocytes (%) (Auto) 11.7 % Eosinophils (%) (Auto) 1.1 % Basophils (%) (Auto) 0.8 % Neutrophils # (Auto) 9.79 K/uL (1.4-6.5) Lymphocytes # (Auto) 1.61 K/uL (1.2-3.4) Monocytes # (Auto) 1.56 K/uL (0.11-0.59) Eosinophils # (Auto) 0.15 K/uL (0-0.5) Basophils # (Auto) 0.10 K/uL (0-0.2) RDW Standard Deviation 53.3 fL (36.4-46.3) RDW Coefficient of Variation 15.5 % (11.5-14.5) Immature Granulocyte % (Auto) 0.8 % Immature Granulocyte # (Auto) 0.10 K/uL (0.00-0.02) Nucleated RBC Absolute Count (auto) 0.02 K/uL (0-0) Nucleated Red Blood Cells % 0.1 % Erythrocyte Sedimentation Rate 56 mm/hr (0-14) Prothrombin Time 10.5 SECONDS (9.0-12.0) Prothromb Time International Ratio 1.0 (0.9-1.1) Activated Partial Thromboplast Time 29.0 SECONDS (21.0-31.0) Partial Thromboplastin Ratio 1.1 Anion Gap 5.0 mmol/L (3-11) Est Creatinine Clear Calc Drug Dose 66.2 ml/min Estimated GFR () 71.6 Estimated GFR (Non- 61.8 BUN/Creatinine Ratio 14.2 (10-20) Calcium Level 8.8 mg/dl (8.5-10.1) Magnesium Level 2.0 mg/dl (1.8-2.4) Total Bilirubin 0.4 mg/dl (0.2-1) Aspartate Amino Transf (AST/SGOT) 13 U/L (15-37) Alanine Aminotransferase (ALT/SGPT) < 6 U/L (12-78) Alkaline Phosphatase 122 U/L (45-117) C-Reactive Protein 5.01 mg/dl (0-0.29) Total Protein 7.2 gm/dl (6.4-8.2) Albumin 2.7 gm/dl (3.4-5.0) Globulin 4.5 gm/dl (2.5-4.0) Albumin/Globulin Ratio 0.6 (0.9-2) Bedside Lactic Acid Venous 1.25 mmol/L (0.90-1.70) Laboratory results per my review. Medications Administered Medications (Trade) Dose Ordered Sig/Igor Route Start Time Stop Time Status Last Admin Dose Admin Cefepime HCl 2000 mg/Dextrose 122 ml @ 200 mls/hr NOW STAT IV 11/03/17 17:42 11/03/17 18:18 DC 11/03/17 18:40 200 MLS/HR Daptomycin 540 mg/ Sodium Chloride 60.8 ml @ 100 mls/hr ONE STAT IV 11/03/17 17:42 11/03/17 18:18 DC 11/03/17 18:40 100 MLS/HR Sodium Chloride 1,000 ml @ 999 mls/hr Q1H1M STAT IV 11/03/17 17:42 11/03/17 18:42 DC 11/03/17 18:24 999 MLS/HR ED Course 1737: The patient was evaluated in room A10. A complete history and physical examination were performed. 174: I discussed the patient's case with Dr. Owusu-Infectious Disease. He recommends Cefepime and Daptomycin. 174: Ordered NSS 1000 ml @ 999 mls/hr IV, Daptomycin 540 mg/Sodium Chloride 60.8 ml @ 100 mls/hr IV, Cefepime HCl 2000 mg/Dextrose 122 ml @ 200 mls/hr IV. 1751: I discussed the patient's case with Dr. Wheeler- [facility]. They will evaluate the patient after being admitted by medicine. 1753: I reevaluated the patient and updated him on what Dr. Owusu and Dr. Wheeler' s PA said. 1900: I reevaluated the patient and updated him on his test results and the treatment plan. He verbally agrees and understands. 1910: I discussed the patient's case with Dr. Brooks [facility]. The patient will be evaluated for further management. Medical Decision Differential diagnosis: Etiologies such as viral syndrome, otitis, pharyngitis, pneumonia, influenza, meningitis, urinary tract infection, sepsis, bacteremia, as well as others were entertained. Nursing notes reviewed. The patient's recent MRI report was reviewed. The patient is a 66-year-old male who presented to the emergency department for an evaluation. The patient has been having ongoing back pain and has a history of osteomyelitis of the back. He had a recent MRI which was consistent with an epidural phlegmon as well as a phlegmon around the psoas. The patient's MRI was ordered by infectious disease. The patient was started on antibiotics after discussion with infectious disease. I discussed patient's laboratory and radiographic studies with him. I also discussed this case with the orthopedic spine group that he is seen in the past as well as the on-call [facility] hospitalist group. The patient was feeling much better on subsequent reevaluation. Medication Reconcilliation Current Medication List: was personally reviewed by me Blood Pressure Screening Patient's blood pressure: Elevated blood pressure Will be further monitored by the hospitalist. Consults Time Called: 173 Consulting Physician: Dr. HamiltonInfectious Disease Returned Call: 174 I discussed the patient's case with Dr. Misael Vale. He recommends Cefepime and Daptomycin. Additional Consults: Time Called: 174 Consulted Physician: Dr. Maddi Wyatt Returned Call: 175 Additional Comments: I discussed the patient's case with Dr. Maddi Wyatt. They will evaluate the patient after being admitted by medicine. Time Called: 185 Consulted Physician: Dr. Brooks [place] Hospitalist Returned Call: [phone] Additional Comments: I discussed the patient's case with Dr. Brooks [place] [facility]. The patient will be evaluated for further management. Impression Primary Impression: Epidural abscess Scribe Attestation The scribe's documentation has been prepared under my direction and personally reviewed by me in its entirety. I confirm that the note above accurately reflects all work, treatment, procedures, and medical decision making performed by me. Departure Information Dispostion Being Evaluated By Hospitalist Referrals Jeromy Hanson M.D. (PCP) Patient Instructions [facility]
[2017-11-03] MEDS ORDERED: DC ALL PREVIOUSLY ORDERED DIABETES MEDS ONE (21:15)
[2017-11-03] MEDS ORDERED: GLUCOSE 10 TABS/TUBE PO PRN (21:15)
[2017-11-03] MEDS ORDERED: ALBUT/IPRATROP 3MG/0.5MG NEB 3 ML VIAL INH SCH (21:15)
[2017-11-03] MEDS ORDERED: ONDANSETRON INJ 2 MG/ML 2 ML VIAL IV PRN (21:15)
[2017-11-03] MEDS ORDERED: GLUCAGON FOR INJ 1 MG VIAL SQ PRN (21:15)
[2017-11-03] MEDS ORDERED: DEXTROSE 50% 50 ML SYR IV PRN (21:15)
[2017-11-03] MEDS ORDERED: LEVALBUTEROL 1.25MG/3ML NEB INH PRN (21:15)
[2017-11-03] MEDS ORDERED: GLUCOSE 40% GEL 15 GM TUBE PO PRN (21:15)
[2017-11-03 22:00] VITALS: BP 166/87; PULSE 86; TEMP 36.5; O2SAT 95; BMI 29.2
[2017-11-03 22:44] VITALS: BP 116/73; PULSE 76; TEMP 36.6; O2SAT 98
[2017-11-03 23:10] VITALS: BP 146/70; PULSE 80; TEMP 36.7; O2SAT 97
[2017-11-03] MEDS: FLUTICASONE/SALMETEROL 250/50 (ADVAIR) 14 PUFF/1 INHALER INH SCH (23:10)
[2017-11-03] MEDS: METOPROLOL SUCC 50MG EXT REL TAB PO SCH (23:13)
[2017-11-03] MEDS: TAMSULOSIN HCL 0.4 MG CAP PO SCH (23:13)
[2017-11-03] MEDS: CYCLOBENZAPRINE HCL 10 MG TAB PO PRN (23:21)
[2017-11-03] MEDS: SODIUM CHLORIDE 0.9% 1000ML 1,000 ML IV SCH (23:23)
[2017-11-03] MEDS: MoRPHine SULFATE 2 MG/ML CARP IV PRN (23:33)
[2017-11-04] VITALS (10 sets, daily range): BP systolic 104–127; BP diastolic 55–82; PULSE 72–81; TEMP 36.8–37.2; O2SAT 90–96
--- NOTE | 2017-11-04 00:06 | History and Physical ---
History & Physical Date & Time of Service: Nov 03, 2017 at 23:34 Chief Complaint: Back Pain Primary Care Physician: Jeromy Hanson M.D. History of Present Illness Source: patient, family Patient is a 66yo male with multiple medical problems, notably CAD s/p IL, s/p CABG x 2V in 2000 at [facility], P, DM, PAF. Patient with multiple back surgeries in the past, most recently [address] Wheeler. He presents today with 1 month of progressively worsening lumbar pain, swelling and intermittent numbness of the right leg associated with poor balance. Patient with history of MRSA infections after surgery and has been following with Dr. Owusu for that. He is on Doxycycline BID. Patient had an outpatient MRI performed with Dr. Owusu. He was notified of abnormal results and told to go to the ED. Patient complaining of lumbar back pain, constant. Denies fevers/chills. Denies numbness/tingling. Denies bowel/bladder incontinence. No additional complaints at this time. ER Course: Cefepime Daptomycin Past Medical/Surgical History Medical Problems: Abscess in epidural space of lumbar spine Diastolic CHF Anemia COPD Parkinson's disease MRSA Hypertension PE Tobacco abuse Hypertension LES - on CPAP CAD s/p IL s/p CABG DM BPH Past Surgical History: CABG x 2 vessel in 2000 Appendectomy Back surgery x 4 Hernia x 2 Surgical Problems: (1) History of appendectomy (2) History of back surgery (3) S/P CABG x 2 Family History FH: heart disease Hypertension Social History Smoking Status: Current Every Day Smoker Smokeless Tobacco Use: No Alcohol Use: none Drug Use: none Marital Status: Housing status: lives with family Occupational Status: retired, disabled Immunizations History of Influenza Vaccine: Yes Influenza Vaccine Date: Mar 07, 2007 History of Tetanus Vaccine?: Yes Tetanus Immunization Date: Jul 19, 2010 History of Pneumococcal: Yes History of Hepatitis B Vaccine: No Allergies Coded Allergies: BEE STING (Verified Allergy, Severe, ANAPHYLAXIS, 11/03/17) Triptans (Verified Allergy, Unknown, unknown, 11/03/17) Benztropine (Verified Adverse Reaction, Intermediate, hallucinations/ mental confusion, 11/03/17) Eletriptan (Verified Adverse Reaction, Intermediate, CONFUSION, 11/03/17) Ropinirole (Verified Adverse Reaction, Unknown, unknown, 11/03/17) Home Medications Scheduled Amiodarone HCl (Amiodarone HCl), 200 MG PO DAILY Amlodipine (Norvasc), 10 MG PO DAILY Aspirin (Aspirin Ec), 81 MG PO DAILY Carbidopa/Levodopa (Sinemet Cr 50MG/200MG), 1 TAB PO BID Carbidopa/Levodopa (Sinemet 25MG/100MG), 4 TAB PO QID Cholecalciferol (Vitamin D3), 1 CAP PO DAILY Desloratadine (Clarinex), 5 MG PO DAILY Docusate Sodium (Colace), 1 CAP PO TID Doxycycline Monohydrate (Monodox), 100 MG PO BID Duloxetine Hcl (Cymbalta), 60 MG PO DAILY Fluticasone Prop/Salmeterol (Advair Diskus 250-50 Mcg/Dose), 1 PUFF INH Q12 Hydralazine Hcl (Apresoline), 1 TAB PO TID Ipratropium-Albuterol (Duoneb), 1 TREATMENT INH Q4H Levalbuterol (Levalbuterol HCl), 1.25 MG PO Q6 Lubiprostone (Amitiza), 8 MCG PO TID Metoprolol Succ (Toprol Xl) (Toprol-Xl), 75 MG PO HS Multivitamin (Multivitamin), 1 TAB PO DAILY Pantoprazole Sodium (Protonix), 20 MG PO DAILY Polyethylene Glycol 3350 (Miralax), 17 GM PO DAILY Simvastatin (Zocor), 40 MG PO QPM Tamsulosin HCl (Tamsulosin HCl), 0.4 MG PO HS Tiotropium [place] (Spiriva Handihaler), 1 CAP PO DAILY Scheduled PRN Cyclobenzaprine Hcl (Flexeril), 10 MG PO TID PRN for Muscle Spasms Furosemide (Lasix), Unknown Dose PO for WEIGHT GAIN Levalbuterol Hcl (Levalbuterol), 1.25 MG PO Q2H PRN for SOB/Wheezing Review of Systems Constitutional: + chills, No fever Eyes: No worsening of vision ENT: No hearing loss Respiratory: No cough, No shortness of breath Cardiovascular: No chest pain, No palpitations Abdomen: No pain, No nausea, No vomiting Musculoskeletal: No joint pain Genitourinary - Male: + urinary urgency, No hematuria, No urinary frequency Neurologic: + numbness/tingling Endocrine: No fatigue Hematologic / Lymphatic: No abnormal bleeding/bruising Integumentary: No rash Physical Exam Vital Signs Date Time Temp Pulse Resp B/P (MAP) Pulse Ox O2 Delivery O2 Flow Rate FiO2 11/03/17 23:10 36.7 80 18 146/70 (95) 97 Room Air 11/03/17 21:44 78 140/71 94 11/03/17 19:48 79 98 Room Air 11/03/17 18:48 77 160/141 95 Room Air 11/03/17 18:20 97 Room Air 11/03/17 17:21 36.6 88 22 108/62 97 Room Air General: patient resting comfortably in bed, NAD, AA&O x 4, +Parkinsonian movement/tremor Skin: warm, dry, intact, scattered ecchymoses on forearms HEENT: NC/AT, PERRL, EOMI, anicteric sclera, conjunctiva without injection, nares patent, dry mucus membranes, no oropharyngeal lesions, poor dentition, neck supple, trachea midline, no thyromegaly, no LAD Heart: +S1/S2, irregularly irregular, no m/r/g Lungs: equal air entry bilaterally, no rales/rhonchi/wheezes Abdomen: soft, NT/ND, no masses/organomegaly/ascites, +MIDLINE TENDERNESS WITH PERCUSSION OF LUMBAR SPINE, +SOFT TISSUE FULLNESS Extremities: warm, well perfused, no clubbing/cyanosis or edema, 2+ palpable pulses in UE/LE bilaterally Neuro: CN II-XII grossly intact, MS 5/5 in UE/LE bilaterally, sensation intact , no deficits noted Diagnostics Laboratory Results Results Past 24 Hours Test 11/03/17 18:03 11/03/17 18:09 11/03/17 21:05 11/03/17 22:04 Range/Units White Blood Count 13.31 4.8-10.8 K/uL Red Blood Count 3.58 4.7-6.1 M/uL Hemoglobin 10.7 14.0-18.0 g/dL Hematocrit 33.9 42-52 % Mean Corpuscular Volume 94.7 80-100 fL Mean Corpuscular Hemoglobin 29.9 25-34 pg Mean Corpuscular Hemoglobin Concent 31.6 32-36 g/dl Platelet Count 197 130-400 K/uL Mean Platelet Volume 10.6 7.4-10.4 fL Neutrophils (%) (Auto) 73.5 % Lymphocytes (%) (Auto) 12.1 % Monocytes (%) (Auto) 11.7 % Eosinophils (%) (Auto) 1.1 % Basophils (%) (Auto) 0.8 % Neutrophils # (Auto) 9.79 1.4-6.5 K/uL Lymphocytes # (Auto) 1.61 1.2-3.4 K/uL Monocytes # (Auto) 1.56 0.11-0.59 K/uL Eosinophils # (Auto) 0.15 0-0.5 K/uL Basophils # (Auto) 0.10 0-0.2 K/uL RDW Standard Deviation 53.3 36.4-46.3 fL RDW Coefficient of Variation 15.5 11.5-14.5 % Immature Granulocyte % (Auto) 0.8 % Immature Granulocyte # (Auto) 0.10 0.00-0.02 K/uL Nucleated RBC Absolute Count (auto) 0.02 0-0 K/uL Nucleated Red Blood Cells % 0.1 % Erythrocyte Sedimentation Rate 56 0-14 mm/hr Prothrombin Time 10.5 9.0-12.0 SECONDS Prothromb Time International Ratio 1.0 0.9-1.1 Activated Partial Thromboplast Time 29.0 21.0-31.0 SECONDS Partial Thromboplastin Ratio 1.1 Sodium Level 137 136-145 mmol/L Potassium Level 3.9 3.5-5.1 mmol/L Chloride Level 103 98-107 mmol/L Carbon Dioxide Level 30 21-32 mmol/L Anion Gap 5.0 3-11 mmol/L Blood Urea Nitrogen 17 7-18 mg/dl Creatinine 1.20 0.60-1.40 mg/dl Est Creatinine Clear Calc Drug Dose 66.2 ml/min Estimated GFR () 71.6 Estimated GFR (Non- 61.8 BUN/Creatinine Ratio 14.2 10-20 Random Glucose 88 70-99 mg/dl Calcium Level 8.8 8.5-10.1 mg/dl Magnesium Level 2.0 1.8-2.4 mg/dl Total Bilirubin 0.4 0.2-1 mg/dl Aspartate Amino Transf (AST/SGOT) 13 15-37 U/L Alanine Aminotransferase (ALT/SGPT) < 6 12-78 U/L Alkaline Phosphatase 122 45-117 U/L C-Reactive Protein 5.01 0-0.29 mg/dl Total Protein 7.2 6.4-8.2 gm/dl Albumin 2.7 3.4-5.0 gm/dl Globulin 4.5 2.5-4.0 gm/dl Albumin/Globulin Ratio 0.6 0.9-2 Bedside Lactic Acid Venous 1.25 0.90-1.70 mmol/L Urine Color YELLOW Urine Appearance CLEAR CLEAR Urine pH 6.5 4.5-7.5 Urine Specific Candor 1.009 1.000-1.030 Urine Protein NEG NEG Urine Glucose (UA) NEG NEG Urine Ketones NEG NEG Urine Occult Blood NEG NEG Urine Nitrite NEG NEG Urine Bilirubin NEG NEG Urine Urobilinogen NEG NEG Urine Leukocyte Esterase NEG NEG Urine WBC (Auto) 0 0-5 /hpf Urine RBC (Auto) 0-4 0-4 /hpf Urine Hyaline Casts (Auto) 0 0-5 /lpf Urine Epithelial Cells (Auto) 0-5 0-5 /lpf Urine Bacteria (Auto) NEG NEG Bedside Glucose 97 70-99 mg/dl Microbiology Results 11/03/17 Blood Culture, Received Pending 11/03/17 Blood Culture, Received Pending Diagnostic Radiology LUMBAR SPINE MRI WITH AND WITHOUT CONTRAST HISTORY: Low back pain. Right leg pain. G06.1 Abscess in epidural space of lumbar spine [id number] TECHNIQUE: Multiplanar multisequence MRI of the lumbar spine was performed both before and after the intravenous administration of contrast. COMPARISON: Lumbar spine MRI 04/07/2017. FINDINGS: For the purpose of the report the L5-S1 disc space will be located on axial image 23 of 25. There are postoperative changes consistent with posterior decompression fusion at L4-5 with pedicle screws and rods. This results in suboptimal evaluation of the L4-5 level due to the associated metallic artifact. However, there is progressive endplate edema and abnormal hypointense T1 signal within the L4 and L5 vertebral bodies. There is also increased T2 signal within the L4-5 disc space with mild enhancement along the anterior aspect of the annular disc. Therefore, these findings are consistent with a discitis/osteomyelitis at the L4-5 level. There is also abnormal soft tissue signal intensity and enhancement within the paravertebral soft tissues at the L4-S1 levels most pronounced along the right side which extends into the right psoas muscle. The abnormal signal intensity and enhancement also extends into the right L4-L5 neural foramen and surrounds the right side and posterior aspect of the thecal sac at the L4-5 level. The thecal sac at the L4-5 level is slightly displaced to the left due to this soft tissue abnormality and results in severe central canal narrowing. No loculated fluid collections at this time to suggest a definitive abscess. Therefore, this is consistent with soft tissue paravertebral and epidural phlegmon. There is abnormal signal within the epidural fat posterior to the L4 vertebral body which also demonstrates enhancement. This is also consistent with phlegmon within the epidural space. The conus terminates at the L1 level. No central canal narrowing at L1-L2 or L2-L3. Mild central canal narrowing at L3-L4 remains unchanged. Severe disc space narrowing at L5-S1 is also unchanged. Bilateral renal cysts are noted. There is also abnormal enhancement at the laminectomy site consistent with additional site of infectious change. No fractures of dictation within the lumbar spine. Diffuse disc desiccation is noted. IMPRESSION: 1. Above findings consistent with progressive discitis/osteomyelitis at L4-L5. There is associated paravertebral soft tissue abnormality and enhancement from the L4-S1 levels most pronounced on the right. This extends into the right psoas muscle and is consistent with phlegmon. 2. There is also abnormal soft tissue enhancement along the right side of the thecal sac at the L4-5 level and posterior to the L4 vertebral body consistent with epidural phlegmon. This results in mild displacement of the thecal sac to the left with severe central canal narrowing. This has slightly progressed. 3. There is also abnormal enhancement within the soft tissues at the laminectomy site consistent with additional site of infectious change. 4. No loculated fluid collections at this time to suggest an abscess. 5. These findings were discussed with Dr. Owusu at 2:30 PM on 11/03/2017. Electronically signed by: Kraig Johnson M.D. 11/03/2017 2:33 PM Dictated Date/Time: 11/03/2017 2:03 PM CHEST ONE VIEW PORTABLE CLINICAL HISTORY: Sepsis. COMPARISON STUDY: Chest radiograph September 06, 2017. FINDINGS: Median sternotomy wires and mediastinal surgical clips are noted. Moderate cardiomegaly is unchanged. Mild interstitial prominence is unchanged. There is no evidence for overt edema. No pneumothorax or pleural effusion is noted. Elevation the right hemidiaphragm is unchanged. Several old right rib fractures are incidentally noted. IMPRESSION: No acute cardiopulmonary findings. No change in appearance of the chest. Electronically signed by: Gerald Emerson M.D. 11/03/2017 6:00 PM Impression Assessment and Plan 66yo male with multiple medical problems presenting with 1 month of progressive LBP, outpatient MRI with concerns for progressive discitis/osteomyelitis at L4- L5 as well as phlegmon at L4-S1. L4-L5 with mild displacement of the thecal sac to the left with severe central canal narrowing. Enhancement of soft tissues at the laminectomy site concerning for infectious change. 1. Back pain with Osteomyelitis/Phlegmon vs abscess - patient afebrile, hemodynamically stable. Non-septic in appearance. Leukocytosis with WBC=13.31 , Lactate WNL. Elevate ESR and CRP -Blood cultures pending -Cefepime 2gm IV q 4 -Daptomycin 6mg/kg daily -Morphine PRN pain -Zofran PRN nausea -Continue Flexeril, Cymbalta for pain control -Consultation with Dr. Owusu from [facility] - appreciate assistance with this case -Consultation with Dr. Wheeler from Orthopedics - appreciate assistance with this case -Hold statin while on Daptomycin -Check baseline CK 2. Parkinson's Disease - stable, chronic -Continue Sinemet 25/100 1 tab QID and CR 50/200 1 tab BID. Some confusion with medication reconciliation. Will proceed with aforementioned dosing for now. Note that patient may require more Sinemet CR 50/200 3. COPD - stable, no respiratory distress, adequate oxygenation and ventilation on room air -Continue Xopenex PRN -Continue Advair -Continue Spiriva -Smoking cessation counseling 4. AF - patient presently rate controlled. Not on anticoagulation -Continue Amiodarone -Continue to monitor 5. Hypertension -patient presently mildly hypertensive -Continue Amlodipine, Hydralazine and Metoprolol 6. CAD s/p IL, s/p CABG - stable, no CP -Continue Metoprolol, ASA -Obtain EKG x 1 -Holding statin as above 7. LES - stable -CPAP qHS 8. DM - blood sugar presently 88. No report of diabetic medication on medication reconciliation -Will cover with ISS -BS checks 9. BPH - stable, chronic -Continue Flomax 10. F/E/N - NSS at 80mL/hr x 2 liters, monitor electrolytes and replete as needed. AHA/DM diet as tolerated. Continue bowel regimen to include TID Colace , Miralax and Amitiza. Continue Vitamin D3 11. Ppx - Lovenox and Protonix 12. Code - full per discussion with patient 13. Dispo - admit to medical floor Resuscitation Status FULL VTE Prophylaxis Will order VTE Prophylaxis: Yes
[2017-11-04] MEDS: LEVALBUTEROL 1.25MG/3ML NEB INH SCH ×4 (01:08→19:37)
[2017-11-04] MEDS: CEFEPIME IV 2,000 MG in SYRINGE 7.5 ML IV SCH ×2 (03:34→15:37)
[2017-11-04] MEDS: ENOXAPARIN 40 MG/0.4 ML SYR SQ SCH (05:41)
[2017-11-04] MEDS ORDERED: DAPTOmycin IV 540 MG in SODIUM CHLORIDE 0.9% 50ML 50 ML IV SCH (09:00)
[2017-11-04] MEDS ORDERED: CARBIDOPA/LEVODOPA 25/100MG TAB PO SCH (09:00)
[2017-11-04] MEDS: INSULIN ASPART 100 UNITS/ML 3 ML PEN SC SCH ×4 (09:36→21:00)
[2017-11-04] MEDS: MoRPHine SULFATE 2 MG/ML CARP IV PRN ×2 (09:43→15:52)
[2017-11-04] MEDS: FLUTICASONE/SALMETEROL 250/50 (ADVAIR) 14 PUFF/1 INHALER INH SCH ×2 (09:45→21:41)
[2017-11-04] MEDS: TIOTROPIUM BROMIDE 5 PUFF/90 MCG INH INH SCH (09:45)
[2017-11-04] MEDS: CARBIDOPA/LEVODOPA 25/100MG TAB PO SCH ×4 (09:46→21:42)
[2017-11-04] MEDS: AMLODIPINE BESYLATE 5 MG TAB PO SCH (09:47)
[2017-11-04] MEDS: DULOXETINE HCL 60 MG CAP PO SCH (09:47)
[2017-11-04] MEDS: POLYETHYLENE (MIRALAX) 17 GM PACK PO SCH (09:47)
[2017-11-04] MEDS: CARBIDOPA/LEVODOPA 50/200MG EXT REL TAB PO SCH ×2 (09:47→21:41)
[2017-11-04] MEDS: AMIODARONE 200 MG TAB PO SCH (09:48)
[2017-11-04] MEDS: CHOLECALCIFEROL 1000 INTER.UNIT TAB PO SCH (09:48)
[2017-11-04] MEDS: LUBIPROSTONE 8 MCG CAP PO SCH ×3 (09:48→21:42)
[2017-11-04] MEDS: PANTOprazole SOD 40 MG TAB PO SCH (09:49)
[2017-11-04] MEDS: MULTIVITAMIN TAB PO SCH (09:49)
[2017-11-04] MEDS: DOCUSATE SODIUM 100 MG CAP PO SCH ×3 (09:50→21:43)
[2017-11-04] MEDS: ASPIRIN 81 MG ECTAB PO SCH (09:50)
--- NOTE | 2017-11-04 10:59 | Medical Consult ---
Consultation Date of Consultation: Nov 04, 2017. Attending Physician: Izabella Herrmann MD Reason for Consultation: Fluid collection,? Abscess History of Present Illness 66-year-old male well known to me with history multiple back surgeries with infection 1 year ago with MRSA, maintained on suppressive therapy with doxycycline, who presented to the office with 1 month of progressively worsening pain and sensitive swelling in his lower back associated with weakness and cramping of his right leg, fatigue difficulty walking. He was sent for MRI scan which showed evidence of significantly worsening phlegmon with some involvement of the psoas muscle. As discussed with the emergency room , patient was started on cefepime and daptomycin. Blood cultures are pending. Patient states pain currently 8/10 in intensity in his lower back. Past Medical/Surgical History Medical Problems: (1) Altered mental status Status: Acute (2) Altered mental status Status: Acute (3) Congestive heart failure Status: Acute (4) Cough Status: Acute (5) Dyskinesia due to Parkinson's disease Status: Acute (6) Encounter for smoking cessation counseling Status: Acute (7) Epidural abscess Status: Acute (8) Generalized weakness Status: Acute (9) Intractable pain Status: Acute (10) Leukocytosis Status: Acute (11) Leukocytosis Status: Acute (12) Low back pain Status: Acute (13) Lumbar disc disease Status: Acute (14) Need for intravenous access Status: Acute (15) New onset of congestive heart failure Status: Acute (16) New onset seizure Status: Acute (17) Parkinson's disease Status: Acute (18) Parkinson's disease (tremor, stiffness, slow motion, unstableposture) Status: Acute (19) Post op infection Status: Acute (20) Right hip pain Status: Acute (21) Sciatica Status: Acute (22) Sciatica Status: Acute (23) Sepsis Status: Acute (24) Shaking Status: Acute (25) Shortness of breath Status: Acute (26) Substernal chest pain Status: Acute Medical Problems: (1) Abscess in epidural space of lumbar spine (2) Acute on chronic diastolic (congestive) heart failure (3) Back pain (4) Bronchitis (5) Bulging disc (6) Chest wall pain (7) COPD (chronic obstructive pulmonary disease) (8) COPD exacerbation (9) Fall (10) Hallucinations (11) Heart disease (12) Hx MRSA infection (13) Hyperlipidemia (14) Hypertension (15) Hypoxia (16) inability to ambulate (17) Lumbar stenosis with neurogenic claudication (18) Parkinson disease (19) Parkinsons disease (20) Pneumonia involving right lung (21) Radicular pain of right lower extremity (22) Seizure-like activity (23) Shoulder pain Surgical Problems: (1) History of appendectomy (2) History of back surgery (3) S/P CABG x 2 Family History FH: heart disease Hypertension Social History Smoking Status: Current Every Day Smoker Smokeless Tobacco Use: No Alcohol Use: none Drug Use: none Marital Status: Housing Status: assisted living Occupation Status: retired, disabled Allergies Coded Allergies: BEE STING (Verified Allergy, Severe, ANAPHYLAXIS, 11/03/17) Triptans (Verified Allergy, Unknown, unknown, 11/03/17) Benztropine (Verified Adverse Reaction, Intermediate, hallucinations/ mental confusion, 11/03/17) Eletriptan (Verified Adverse Reaction, Intermediate, CONFUSION, 11/03/17) Ropinirole (Verified Adverse Reaction, Unknown, unknown, 11/03/17) Current Inpatient Medications Current Inpatient Medications Medications (Trade) Dose Ordered Sig/Igor Route Start Time Stop Time Status Last Admin Dose Admin Amiodarone HCl (Cordarone Tab) 200 mg DAILY PO 11/04/17 09:00 12/04/17 08:59 11/04/17 09:48 200 MG Amlodipine Besylate (Norvasc Tab) 10 mg DAILY PO 11/04/17 09:00 12/04/17 08:59 11/04/17 09:47 10 MG Aspirin (Ecotrin Tab) 81 mg DAILY PO 11/04/17 09:00 12/04/17 08:59 11/04/17 09:50 81 MG Carbidopa/Levodopa (Sinemet Cr 50/ 200MG Tab) 1 tab BID PO 11/04/17 09:00 12/04/17 08:59 11/04/17 09:47 1 TAB Cyclobenzaprine HCl (Flexeril Tab) 10 mg TID PRN PO 11/03/17 21:15 12/03/17 21:14 11/03/17 23:21 10 MG Docusate Sodium (coLACE CAP) 100 mg TID PO 11/04/17 09:00 12/04/17 08:59 11/04/17 09:50 100 MG Duloxetine HCl (Cymbalta Cap) 60 mg DAILY PO 11/04/17 09:00 12/04/17 08:59 11/04/17 09:47 60 MG Salmeterol Xinafoate/ Fluticasone (Advair Diskus 250/50 Inh) 1 puff Q12 INH 11/04/17 09:00 12/04/17 08:59 11/04/17 09:45 1 PUFF Hydralazine HCl (Apresoline Tab) 100 mg TID PO 11/04/17 09:00 12/04/17 08:59 11/04/17 09:50 100 MG Levalbuterol (Xopenex 1.25MG/ 3ML Neb) 1.25 mg Q6R INH 11/04/17 03:00 12/04/17 02:59 11/04/17 07:29 1.25 MG Levalbuterol (Xopenex 1.25MG/ 3ML Neb) 1.25 mg Q2H PRN INH 11/03/17 21:15 12/03/17 21:14 Metoprolol Succinate (Toprol Xl Tab) 75 mg HS PO 11/04/17 21:00 12/04/17 20:59 11/03/17 23:13 75 MG Multivitamins (Multivitamin Tab) 1 tab DAILY PO 11/04/17 09:00 12/04/17 08:59 11/04/17 09:49 1 TAB Tamsulosin HCl (Flomax Cap) 0.4 mg HS PO 11/04/17 21:00 12/04/17 20:59 11/03/17 23:13 0.4 MG Tiotropium [place] (Spiriva Handihaler Inhaler) 1 puff DAILY INH 11/04/17 09:00 12/04/17 08:59 11/04/17 09:45 1 PUFF Cholecalciferol (Vitamin D Tab) 2,000 inter.unit DAILY PO 11/04/17 09:00 12/04/17 08:59 11/04/17 09:48 2,000 INTER.UNIT Lubiprostone (Amitiza) 8 mcg TID PO 11/04/17 09:00 12/04/17 08:59 11/04/17 09:48 8 MCG Pantoprazole Sodium (Protonix Tab) 40 mg DAILY PO 11/04/17 09:00 12/04/17 08:59 11/04/17 09:49 40 MG Polyethylene (Miralax Powder Packet) 17 gm DAILY PO 11/04/17 09:00 12/04/17 08:59 11/04/17 09:47 17 GM Sodium Chloride 1,000 ml @ 80 mls/hr [id number] IV 11/03/17 21:15 11/04/17 22:14 11/03/17 23:23 80 MLS/HR Morphine Sulfate (MoRPHine SULFATE INJ) 2 mg Q4 PRN IV 11/03/17 21:15 11/17/17 21:14 11/04/17 09:43 2 MG Cefepime HCl 2000 mg/Syringe 20 ml @ 5 mls/min Q12H IV 11/04/17 04:00 12/16/17 03:59 11/04/17 03:34 5 MLS/MIN Daptomycin 450 mg/ Syringe 9 ml @ 4.5 mls/min Q24H IV 11/04/17 18:00 12/15/17 17:59 Enoxaparin Sodium (Lovenox Inj) 40 mg Q24H SQ 11/04/17 06:00 12/04/17 05:59 11/04/17 05:41 40 MG Acetaminophen (Tylenol Tab) 650 mg Q4H PRN PO 11/03/17 21:15 12/03/17 21:14 Ondansetron HCl (Zofran Inj) 4 mg Q6H PRN IV 11/03/17 21:15 12/03/17 21:14 Insulin Aspart (novoLOG ASPART) SLIDING SCALE If C... ACHS SC 11/04/17 07:00 12/04/17 06:59 11/04/17 09:36 2 UNITS Glucose (Glucose 40% Gel) 15-30 GRAMS 15 GRAMS... UD PRN PO 11/03/17 21:15 12/03/17 21:14 Glucose (Glucose Chew Tab) 4-8 Tablets 4 Tabl... UD PRN PO 11/03/17 21:15 12/03/17 21:14 Dextrose (Dextrose 50% 50ML Syringe) 25-50ML 25ML FOR ... UD PRN IV 11/03/17 21:15 12/03/17 21:14 Glucagon (Glucagon Inj) 1 mg UD PRN SQ 11/03/17 21:15 12/03/17 21:14 Carbohydrates (Carbohydrates For Hypoglycemia) 15-30 GRAMS 15 grams if BSG 54-69... UD PRN PO 11/03/17 21:15 12/03/17 21:14 Carbidopa/Levodopa (Sinemet 25/ 100MG Tab) 1 tab QID PO 11/04/17 09:00 12/04/17 08:59 11/04/17 09:46 1 TAB Review of Systems All systems were reviewed and are negative except as per HPI Physical Exam Date Time Temp Pulse Resp B/P (MAP) Pulse Ox O2 Delivery O2 Flow Rate FiO2 11/04/17 08:00 Room Air 11/04/17 07:29 75 18 96 BiPAP/CPAP 21 11/04/17 07:29 75 95 11/04/17 07:18 36.9 72 18 127/69 (88) 95 CPAP 11/04/17 01:31 78 94 11/04/17 01:08 72 18 95 BiPAP/CPAP 21 11/03/17 23:10 36.7 80 18 146/70 (95) 97 Room Air 11/03/17 22:44 36.6 76 16 116/73 (87) 98 Room Air 11/03/17 22:00 36.5 86 18 166/87 95 Room Air 11/03/17 22:00 Room Air 11/03/17 21:44 78 140/71 94 11/03/17 19:48 79 98 Room Air 11/03/17 18:48 77 160/141 95 Room Air 11/03/17 18:20 97 Room Air 11/03/17 17:21 36.6 88 22 108/62 97 Room Air General Appearance: WD/WN, + mild distress Head: normocephalic, atraumatic Eyes: normal inspection, EOMI, sclerae normal ENT: normal ENT inspection, hearing grossly normal, pharynx normal Neck: supple, no adenopathy, thyroid normal, trachea midline Respiratory/Chest: chest non-tender, lungs clear, normal breath sounds, no respiratory distress Cardiovascular: regular rate, rhythm, no gallop, no murmur Abdomen/GI: normal bowel sounds, non tender, soft, no organomegaly Back: normal inspection, no CVA tenderness, + pertinent finding (Tenderness over lower lumbar spine) Neurologic/Psych: alert, oriented x 3, + pertinent finding (Tremor) Skin: normal color, warm/dry, no rash Lymphatic: no adenopathy Laboratory Results Date/Time Source Procedure Growth Status 11/03/17 18:25 Blood Blood Culture Pending Received 11/03/17 18:17 Blood Blood Culture Pending Received Last 24 Hours Test 11/03/17 18:03 11/03/17 18:09 11/03/17 21:05 11/03/17 22:04 White Blood Count 13.31 K/uL Red Blood Count 3.58 M/uL Hemoglobin 10.7 g/dL Hematocrit 33.9 % Mean Corpuscular Volume 94.7 fL Mean Corpuscular Hemoglobin 29.9 pg Mean Corpuscular Hemoglobin Concent 31.6 g/dl Platelet Count 197 K/uL Mean Platelet Volume 10.6 fL Neutrophils (%) (Auto) 73.5 % Lymphocytes (%) (Auto) 12.1 % Monocytes (%) (Auto) 11.7 % Eosinophils (%) (Auto) 1.1 % Basophils (%) (Auto) 0.8 % Neutrophils # (Auto) 9.79 K/uL Lymphocytes # (Auto) 1.61 K/uL Monocytes # (Auto) 1.56 K/uL Eosinophils # (Auto) 0.15 K/uL Basophils # (Auto) 0.10 K/uL RDW Standard Deviation 53.3 fL RDW Coefficient of Variation 15.5 % Immature Granulocyte % (Auto) 0.8 % Immature Granulocyte # (Auto) 0.10 K/uL Nucleated RBC Absolute Count (auto) 0.02 K/uL Nucleated Red Blood Cells % 0.1 % Erythrocyte Sedimentation Rate 56 mm/hr Prothrombin Time 10.5 SECONDS Prothromb Time International Ratio 1.0 Activated Partial Thromboplast Time 29.0 SECONDS Partial Thromboplastin Ratio 1.1 Sodium Level 137 mmol/L Potassium Level 3.9 mmol/L Chloride Level 103 mmol/L Carbon Dioxide Level 30 mmol/L Anion Gap 5.0 mmol/L Blood Urea Nitrogen 17 mg/dl Creatinine 1.20 mg/dl Est Creatinine Clear Calc Drug Dose 66.2 ml/min Estimated GFR () 71.6 Estimated GFR (Non- 61.8 BUN/Creatinine Ratio 14.2 Random Glucose 88 mg/dl Calcium Level 8.8 mg/dl Magnesium Level 2.0 mg/dl Total Bilirubin 0.4 mg/dl Aspartate Amino Transf (AST/SGOT) 13 U/L Alanine Aminotransferase (ALT/SGPT) < 6 U/L Alkaline Phosphatase 122 U/L C-Reactive Protein 5.01 mg/dl Total Protein 7.2 gm/dl Albumin 2.7 gm/dl Globulin 4.5 gm/dl Albumin/Globulin Ratio 0.6 Bedside Lactic Acid Venous 1.25 mmol/L Urine Color YELLOW Urine Appearance CLEAR Urine pH 6.5 Urine Specific [place] 1.009 Urine Protein NEG Urine Glucose (UA) NEG Urine Ketones NEG Urine Occult Blood NEG Urine Nitrite NEG Urine Bilirubin NEG Urine Urobilinogen NEG Urine Leukocyte Esterase NEG Urine WBC (Auto) 0 /hpf Urine RBC (Auto) 0-4 /hpf Urine Hyaline Casts (Auto) 0 /lpf Urine Epithelial Cells (Auto) 0-5 /lpf Urine Bacteria (Auto) NEG Bedside Glucose 97 mg/dl Test 11/04/17 06:22 11/04/17 08:06 Total Creatine Kinase 25 U/L Bedside Glucose 102 mg/dl Patient Name: KAILYN JORDAN Unit Number: [id number] Dictated: 11/03/171402 Transcribed: 11/03/171402 [employer] Printed Date/Time: [~ rep prt dt]/[~ rep prt tm] [~ rep ct labl] - [~ rep ct ivnm] [facility] Radiology Department [place], [place] [id number] Dictated: 11/03/171402 Transcribed: 11/03/171402 [employer] Printed Date/Time: [~ rep prt dt]/[~ rep prt tm] [~ rep ct labl] - [~ rep ct ivnm] LUMBAR SPINE MRI WITH AND WITHOUT CONTRAST HISTORY: Low back pain. Right leg pain. G06.1 Abscess in epidural space of lumbar spine [id number] TECHNIQUE: Multiplanar multisequence MRI of the lumbar spine was performed both before and after the intravenous administration of contrast. COMPARISON: Lumbar spine MRI 04/07/2017. FINDINGS: For the purpose of the report the L5-S1 disc space will be located on axial image 23 of 25. There are postoperative changes consistent with posterior decompression fusion at L4-5 with pedicle screws and rods. This results in suboptimal evaluation of the L4-5 level due to the associated metallic artifact. However, there is progressive endplate edema and abnormal hypointense T1 signal within the L4 and L5 vertebral bodies. There is also increased T2 signal within the L4-5 disc space with mild enhancement along the anterior aspect of the annular disc. Therefore, these findings are consistent with a discitis/osteomyelitis at the L4-5 level. There is also abnormal soft tissue signal intensity and enhancement within the paravertebral soft tissues at the L4-S1 levels most pronounced along the right side which extends into the right psoas muscle. The abnormal signal intensity and enhancement also extends into the right L4-L5 neural foramen and surrounds the right side and posterior aspect of the thecal sac at the L4-5 level. The thecal sac at the L4-5 level is slightly displaced to the left due to this soft tissue abnormality and results in severe central canal narrowing. No loculated fluid collections at this time to suggest a definitive abscess. Therefore, this is consistent with soft tissue paravertebral and epidural phlegmon. There is abnormal signal within the epidural fat posterior to the L4 vertebral body which also demonstrates enhancement. This is also consistent with phlegmon within the epidural space. The conus terminates at the L1 level. No central canal narrowing at L1-L2 or L2-L3. Mild central canal narrowing at L3-L4 remains unchanged. Severe disc space narrowing at L5-S1 is also unchanged. Bilateral renal cysts are noted. There is also abnormal enhancement at the laminectomy site consistent with additional site of infectious change. No fractures of dictation within the lumbar spine. Diffuse disc desiccation is noted. IMPRESSION: 1. Above findings consistent with progressive discitis/osteomyelitis at L4-L5. There is associated paravertebral soft tissue abnormality and enhancement from the L4-S1 levels most pronounced on the right. This extends into the right psoas muscle and is consistent with phlegmon. 2. There is also abnormal soft tissue enhancement along the right side of the thecal sac at the L4-5 level and posterior to the L4 vertebral body consistent with epidural phlegmon. This results in mild displacement of the thecal sac to the left with severe central canal narrowing. This has slightly progressed. 3. There is also abnormal enhancement within the soft tissues at the laminectomy site consistent with additional site of infectious change. 4. No loculated fluid collections at this time to suggest an abscess. 5. These findings were discussed with Dr. Owusu at 2:30 PM on 11/03/2017. Electronically signed by: Kraig Johnson M.D. 11/03/2017 2:33 PM Dictated Date/Time: 11/03/2017 2:03 PM The status of this report is Signed. Draft = Not yet reviewed or approved by Radiologist. Signed = Reviewed and approved by Radiologist. <AttendingPhy>Christopher Owusu MD</AttendingPhy> <FamilyPhy>Jeromy Hanson M.D.</FamilyPhy> <PrimaryPhy>Jeromy Hanson M.D.</PrimaryPhy> < UnitNumber>[id number]</UnitNumber> <VisitNumber>[id number]</VisitNumber> < PatientName>KAILYN JORDAN Josh</PatientName> <DateOfBirth>1950</DateOfBirth> < Location>[facility]</Location> <ServiceDate>11/03/17</ServiceDate> <MNE>ESINDI</MNE> <OrderingPhy>Christopher Owusu MD</OrderingPhy> <OrderingPhyMNE>f rep ord dr stewart</ OrderingPhyMNE> <DictatingPhyMNE>f rep dict dr stewart</DictatingPhyMNE> <CCListMNE> f rep ct mnyonas</CCListMNE> <AdmittingPhyMNE>f pt admit dr stewart</AdmittingPhyMNE> < AttendingPhyMNE>f pt attend dr stewart</AttendingPhyMNE> <ConsultingPhyMNE>f pt consult dr stewart</ConsultingPhyMNE> <FamilyPhyMNE>f pt fam dr stewart</FamilyPhyMNE> <OtherPhyMNE>f pt other dr stewart</OtherPhyMNE> < PrimaryPhyMNE>f pt prim care dr stewart</PrimaryPhyMNE> <ReferringPhyMNE>f pt referring dr stewart</ReferringPhyMNE> Assessment & Plan Patient with worsening diskitis, osteomyelitis, and phlegmon now involving the lumbar area and psoas muscle. Patient has been started on broad-spectrum antibiotics with daptomycin and cefepime which is appropriate, and will await evaluation by Orthopedic surgery. Will undoubtedly need prolonged IV antibiotics, would recommend PICC line placement. Will follow.
[2017-11-04] MEDS: SODIUM CHLORIDE 0.9% 1000ML 1,000 ML IV SCH ×2 (11:42→20:13)
[2017-11-04] MEDS: CYCLOBENZAPRINE HCL 10 MG TAB PO PRN (11:44)
--- NOTE | 2017-11-04 13:22 | Orthopedic Consultation ---
Orthopedic Consultation Date of Consultation: Nov 04, 2017. Attending Physician: Izabella Herrmann MD Reason for Consultation: Back pain possible lumbar infection History of Present Illness This is a 66-year-old male well-known to me status post lumbar decompression fusion. He presents with evidence of abscess lumbar spine and about the 4 5 level site of his previous decompression fusion. Is complaining of back pain intermittent leg numbness. Denies any motor deficits denies any other changes trauma fall or event. Past Medical/Surgical History Medical Problems: (1) Altered mental status Status: Acute (2) Altered mental status Status: Acute (3) Congestive heart failure Status: Acute (4) Cough Status: Acute (5) Dyskinesia due to Parkinson's disease Status: Acute (6) Encounter for smoking cessation counseling Status: Acute (7) Epidural abscess Status: Acute (8) Generalized weakness Status: Acute (9) Intractable pain Status: Acute (10) Leukocytosis Status: Acute (11) Leukocytosis Status: Acute (12) Low back pain Status: Acute (13) Lumbar disc disease Status: Acute (14) Need for intravenous access Status: Acute (15) New onset of congestive heart failure Status: Acute (16) New onset seizure Status: Acute (17) Parkinson's disease Status: Acute (18) Parkinson's disease (tremor, stiffness, slow motion, unstableposture) Status: Acute (19) Post op infection Status: Acute (20) Right hip pain Status: Acute (21) Sciatica Status: Acute (22) Sciatica Status: Acute (23) Sepsis Status: Acute (24) Shaking Status: Acute (25) Shortness of breath Status: Acute (26) Substernal chest pain Status: Acute Family History FH: heart disease Hypertension Social History Smoking Status: Current Every Day Smoker Smokeless Tobacco Use: No Alcohol Use: none Drug Use: none Marital Status: Housing Status: assisted living Occupation Status: retired, disabled Allergies Coded Allergies: BEE STING (Verified Allergy, Severe, ANAPHYLAXIS, 11/03/17) Triptans (Verified Allergy, Unknown, unknown, 11/03/17) Benztropine (Verified Adverse Reaction, Intermediate, hallucinations/ mental confusion, 11/03/17) Eletriptan (Verified Adverse Reaction, Intermediate, CONFUSION, 11/03/17) Ropinirole (Verified Adverse Reaction, Unknown, unknown, 11/03/17) Home Medications Scheduled Amiodarone HCl (Amiodarone HCl), 200 MG PO DAILY Amlodipine (Norvasc), 10 MG PO DAILY Aspirin (Aspirin Ec), 81 MG PO DAILY Carbidopa/Levodopa (Sinemet Cr 50MG/200MG), 1 TAB PO BID Carbidopa/Levodopa (Sinemet 25MG/100MG), 4 TAB PO QID Cholecalciferol (Vitamin D3), 1 CAP PO DAILY Desloratadine (Clarinex), 5 MG PO DAILY Docusate Sodium (Colace), 1 CAP PO TID Doxycycline Monohydrate (Monodox), 100 MG PO BID Duloxetine Hcl (Cymbalta), 60 MG PO DAILY Fluticasone Prop/Salmeterol (Advair Diskus 250-50 Mcg/Dose), 1 PUFF INH Q12 Hydralazine Hcl (Apresoline), 1 TAB PO TID Ipratropium-Albuterol (Duoneb), 1 TREATMENT INH Q4H Levalbuterol (Levalbuterol HCl), 1.25 MG PO Q6 Lubiprostone (Amitiza), 8 MCG PO TID Metoprolol Succ (Toprol Xl) (Toprol-Xl), 75 MG PO HS Multivitamin (Multivitamin), 1 TAB PO DAILY Pantoprazole Sodium (Protonix), 20 MG PO DAILY Polyethylene Glycol 3350 (Miralax), 17 GM PO DAILY Simvastatin (Zocor), 40 MG PO QPM Tamsulosin HCl (Tamsulosin HCl), 0.4 MG PO HS Tiotropium [place] (Spiriva Handihaler), 1 CAP PO DAILY Scheduled PRN Cyclobenzaprine Hcl (Flexeril), 10 MG PO TID PRN for Muscle Spasms Furosemide (Lasix), Unknown Dose PO for WEIGHT GAIN Levalbuterol Hcl (Levalbuterol), 1.25 MG PO Q2H PRN for SOB/Wheezing Current Inpatient Medications Current Inpatient Medications Medications (Trade) Dose Ordered Sig/Igor Route Start Time Stop Time Status Last Admin Dose Admin Amiodarone HCl (Cordarone Tab) 200 mg DAILY PO 11/04/17 09:00 12/04/17 08:59 11/04/17 09:48 200 MG Amlodipine Besylate (Norvasc Tab) 10 mg DAILY PO 11/04/17 09:00 12/04/17 08:59 11/04/17 09:47 10 MG Aspirin (Ecotrin Tab) 81 mg DAILY PO 11/04/17 09:00 12/04/17 08:59 11/04/17 09:50 81 MG Carbidopa/Levodopa (Sinemet Cr 50/ 200MG Tab) 1 tab BID PO 11/04/17 09:00 12/04/17 08:59 11/04/17 09:47 1 TAB Cyclobenzaprine HCl (Flexeril Tab) 10 mg TID PRN PO 11/03/17 21:15 12/03/17 21:14 11/04/17 11:44 10 MG Docusate Sodium (coLACE CAP) 100 mg TID PO 11/04/17 09:00 12/04/17 08:59 11/04/17 09:50 100 MG Duloxetine HCl (Cymbalta Cap) 60 mg DAILY PO 11/04/17 09:00 12/04/17 08:59 11/04/17 09:47 60 MG Salmeterol Xinafoate/ Fluticasone (Advair Diskus 250/50 Inh) 1 puff Q12 INH 11/04/17 09:00 12/04/17 08:59 11/04/17 09:45 1 PUFF Hydralazine HCl (Apresoline Tab) 100 mg TID PO 11/04/17 09:00 12/04/17 08:59 11/04/17 09:50 100 MG Levalbuterol (Xopenex 1.25MG/ 3ML Neb) 1.25 mg Q6R INH 11/04/17 03:00 12/04/17 02:59 11/04/17 07:29 1.25 MG Levalbuterol (Xopenex 1.25MG/ 3ML Neb) 1.25 mg Q2H PRN INH 11/03/17 21:15 12/03/17 21:14 Metoprolol Succinate (Toprol Xl Tab) 75 mg HS PO 11/04/17 21:00 12/04/17 20:59 11/03/17 23:13 75 MG Multivitamins (Multivitamin Tab) 1 tab DAILY PO 11/04/17 09:00 12/04/17 08:59 11/04/17 09:49 1 TAB Tamsulosin HCl (Flomax Cap) 0.4 mg HS PO 11/04/17 21:00 12/04/17 20:59 11/03/17 23:13 0.4 MG Tiotropium [place] (Spiriva Handihaler Inhaler) 1 puff DAILY INH 11/04/17 09:00 12/04/17 08:59 11/04/17 09:45 1 PUFF Cholecalciferol (Vitamin D Tab) 2,000 inter.unit DAILY PO 11/04/17 09:00 12/04/17 08:59 11/04/17 09:48 2,000 INTER.UNIT Lubiprostone (Amitiza) 8 mcg TID PO 11/04/17 09:00 12/04/17 08:59 11/04/17 09:48 8 MCG Pantoprazole Sodium (Protonix Tab) 40 mg DAILY PO 11/04/17 09:00 12/04/17 08:59 11/04/17 09:49 40 MG Polyethylene (Miralax Powder Packet) 17 gm DAILY PO 11/04/17 09:00 12/04/17 08:59 11/04/17 09:47 17 GM Sodium Chloride 1,000 ml @ 80 mls/hr [id number] IV 11/03/17 21:15 11/04/17 22:14 11/04/17 11:42 80 MLS/HR Morphine Sulfate (MoRPHine SULFATE INJ) 2 mg Q4 PRN IV 11/03/17 21:15 11/17/17 21:14 11/04/17 09:43 2 MG Cefepime HCl 2000 mg/Syringe 20 ml @ 5 mls/min Q12H IV 11/04/17 04:00 12/16/17 03:59 11/04/17 03:34 5 MLS/MIN Daptomycin 450 mg/ Syringe 9 ml @ 4.5 mls/min Q24H IV 11/04/17 18:00 12/15/17 17:59 Enoxaparin Sodium (Lovenox Inj) 40 mg Q24H SQ 11/04/17 06:00 12/04/17 05:59 11/04/17 05:41 40 MG Acetaminophen (Tylenol Tab) 650 mg Q4H PRN PO 11/03/17 21:15 12/03/17 21:14 Ondansetron HCl (Zofran Inj) 4 mg Q6H PRN IV 11/03/17 21:15 12/03/17 21:14 Insulin Aspart (novoLOG ASPART) SLIDING SCALE If C... ACHS SC 11/04/17 07:00 12/04/17 06:59 11/04/17 09:36 2 UNITS Glucose (Glucose 40% Gel) 15-30 GRAMS 15 GRAMS... UD PRN PO 11/03/17 21:15 12/03/17 21:14 Glucose (Glucose Chew Tab) 4-8 Tablets 4 Tabl... UD PRN PO 11/03/17 21:15 12/03/17 21:14 Dextrose (Dextrose 50% 50ML Syringe) 25-50ML 25ML FOR ... UD PRN IV 11/03/17 21:15 12/03/17 21:14 Glucagon (Glucagon Inj) 1 mg UD PRN SQ 11/03/17 21:15 12/03/17 21:14 Carbohydrates (Carbohydrates For Hypoglycemia) 15-30 GRAMS 15 grams if BSG 54-69... UD PRN PO 11/03/17 21:15 12/03/17 21:14 Carbidopa/Levodopa (Sinemet 25/ 100MG Tab) 1 tab QID PO 11/04/17 09:00 12/04/17 08:59 11/04/17 09:46 1 TAB Hydromorphone HCl (Dilaudid Inj) @ Q4 PRN IV 11/04/17 13:15 11/18/17 13:14 Physical Exam Date Time Temp Pulse Resp B/P (MAP) Pulse Ox O2 Delivery O2 Flow Rate FiO2 11/04/17 08:00 Room Air 11/04/17 07:29 75 18 96 BiPAP/CPAP 21 11/04/17 07:29 75 95 11/04/17 07:18 36.9 72 18 127/69 (88) 95 CPAP 11/04/17 01:31 78 94 11/04/17 01:08 72 18 95 BiPAP/CPAP 21 11/03/17 23:10 36.7 80 18 146/70 (95) 97 Room Air 11/03/17 22:44 36.6 76 16 116/73 (87) 98 Room Air 11/03/17 22:00 36.5 86 18 166/87 95 Room Air 11/03/17 22:00 Room Air 11/03/17 21:44 78 140/71 94 11/03/17 19:48 79 98 Room Air 11/03/17 18:48 77 160/141 95 Room Air 11/03/17 18:20 97 Room Air 11/03/17 17:21 36.6 88 22 108/62 97 Room Air Laboratory Results Last 24 Hours Test 11/03/17 18:03 11/03/17 18:09 11/03/17 21:05 11/03/17 22:04 White Blood Count 13.31 K/uL Red Blood Count 3.58 M/uL Hemoglobin 10.7 g/dL Hematocrit 33.9 % Mean Corpuscular Volume 94.7 fL Mean Corpuscular Hemoglobin 29.9 pg Mean Corpuscular Hemoglobin Concent 31.6 g/dl Platelet Count 197 K/uL Mean Platelet Volume 10.6 fL Neutrophils (%) (Auto) 73.5 % Lymphocytes (%) (Auto) 12.1 % Monocytes (%) (Auto) 11.7 % Eosinophils (%) (Auto) 1.1 % Basophils (%) (Auto) 0.8 % Neutrophils # (Auto) 9.79 K/uL Lymphocytes # (Auto) 1.61 K/uL Monocytes # (Auto) 1.56 K/uL Eosinophils # (Auto) 0.15 K/uL Basophils # (Auto) 0.10 K/uL RDW Standard Deviation 53.3 fL RDW Coefficient of Variation 15.5 % Immature Granulocyte % (Auto) 0.8 % Immature Granulocyte # (Auto) 0.10 K/uL Nucleated RBC Absolute Count (auto) 0.02 K/uL Nucleated Red Blood Cells % 0.1 % Erythrocyte Sedimentation Rate 56 mm/hr Prothrombin Time 10.5 SECONDS Prothromb Time International Ratio 1.0 Activated Partial Thromboplast Time 29.0 SECONDS Partial Thromboplastin Ratio 1.1 Sodium Level 137 mmol/L Potassium Level 3.9 mmol/L Chloride Level 103 mmol/L Carbon Dioxide Level 30 mmol/L Anion Gap 5.0 mmol/L Blood Urea Nitrogen 17 mg/dl Creatinine 1.20 mg/dl Est Creatinine Clear Calc Drug Dose 66.2 ml/min Estimated GFR () 71.6 Estimated GFR (Non- 61.8 BUN/Creatinine Ratio 14.2 Random Glucose 88 mg/dl Calcium Level 8.8 mg/dl Magnesium Level 2.0 mg/dl Total Bilirubin 0.4 mg/dl Aspartate Amino Transf (AST/SGOT) 13 U/L Alanine Aminotransferase (ALT/SGPT) < 6 U/L Alkaline Phosphatase 122 U/L C-Reactive Protein 5.01 mg/dl Total Protein 7.2 gm/dl Albumin 2.7 gm/dl Globulin 4.5 gm/dl Albumin/Globulin Ratio 0.6 Bedside Lactic Acid Venous 1.25 mmol/L Urine Color YELLOW Urine Appearance CLEAR Urine pH 6.5 Urine Specific [place] 1.009 Urine Protein NEG Urine Glucose (UA) NEG Urine Ketones NEG Urine Occult Blood NEG Urine Nitrite NEG Urine Bilirubin NEG Urine Urobilinogen NEG Urine Leukocyte Esterase NEG Urine WBC (Auto) 0 /hpf Urine RBC (Auto) 0-4 /hpf Urine Hyaline Casts (Auto) 0 /lpf Urine Epithelial Cells (Auto) 0-5 /lpf Urine Bacteria (Auto) NEG Bedside Glucose 97 mg/dl Test 11/04/17 06:22 11/04/17 08:06 11/04/17 11:57 Total Creatine Kinase 25 U/L Bedside Glucose 102 mg/dl 103 mg/dl Assessment & Plan Assessment lumbar epidural abscess L4-5. Plan at this time would like to obtain further imaging lumbar spine including CAT scan lumbar spine to assess his bony fusion. Pending these results we may consider removal of instrumentation and placement of stimulator and beads.
[2017-11-04] MEDS: HYDROmorphone INJ 2 MG/ML SYR/VIAL IV PRN ×2 (14:07→18:21)
--- NOTE | 2017-11-04 16:26 | DIAGNOSTIC IMAGING REPORT ---
LUMBAR SPINE 2 OR 3 VIEWS CLINICAL HISTORY: back pain pain COMPARISON STUDY: 01/07/2017 FINDINGS: Operative findings consistent with a posterior laminectomy and fusion at L4 and L5. Lucency about the interpedicular screws is suggestive of a component of loosening. This is similar compared to the prior study. Moderate degenerative disc change throughout. This is unchanged. No evidence for an acute compression deformity. IMPRESSION: Degenerative and postoperative changes noted. Posterior laminectomy and fusion at L4 and L5 potential hardware loosening similar to and are only slightly progressive from the prior study. The above report was generated using voice recognition software. It may contain grammatical, syntax or spelling errors. Electronically signed by: Boni Sutton M.D. 11/04/2017 4:25 PM Dictated Date/Time: 11/04/2017 4:24 PM
--- NOTE | 2017-11-04 16:38 | DIAGNOSTIC IMAGING REPORT ---
LUMBAR SPINE CT WITHOUT CONTRAST CLINICAL HISTORY: Back pain. COMPARISON STUDY: Lumbar spine CT August 31, 2015 and MRI of the lumbar spine November 03, 2017. TECHNIQUE: Axial images of the lumbar spine were obtained without IV contrast. Sagittal and coronal reconstructions were viewed. FINDINGS: The patient is status post L4-L5 posterior decompression and bilateral pedicle screw fusion. There is lucency surrounding the bilateral L4 and L5 pedicle screws which suggests loosening. No acute lumbar spine fracture or suspicious lesion is evident on this examination. The central canal and neural foramen are suboptimally assessed given CT technique. There is marked disc space narrowing at L5-S1. Note is made of moderate paravertebral edema at the L4-S1 level as shown on MRI of November 03, 2017. No discrete fluid collection is identified on this unenhanced CT. Epidural space is suboptimally assessed by CT, particularly given artifact from the surgical hardware. There are prominent para-aortic lymph nodes which measure up to 8 mm in short axis diameter. There is osteoarthrosis bilateral sacral joints with partial ankylosis. IMPRESSION: 1. Status post L4-L5 posterior decompression and bilateral pedicle screw fusion. Lucency surrounding the bilateral L4 and L5 pedicle screws suggests loosening. 2. Moderate paravertebral edema at the L4-S1 level, as shown on MRI of November 03, 2017. This favors an infectious process which extends into the right psoas muscle. No fluid collection identified although sensitivity diminished on this unenhanced CT. 3. Suboptimal evaluation of the epidural space given CT technique and artifact from the surgical hardware. This is better depicted on MRI of November 03, 2017. 4. No acute lumbar spine fracture or subluxation. Electronically signed by: Gerald Emerson M.D. 11/04/2017 4:37 PM Dictated Date/Time: 11/04/2017 4:13 PM
[2017-11-04] MEDS: DAPTOmycin IV 450 MG in SYRINGE 0 ML IV SCH (18:21)
[2017-11-04] MEDS ORDERED: NALOXONE HCL 0.4 MG/1 ML VIAL/CARP IV PRN (19:00)
[2017-11-04] MEDS ORDERED: NURSING VERBAL MED ORDER ONE (20:00)
[2017-11-04] MEDS: HYDROmorphone HCL 0.5MG/ML 50 ML CASSETTE IV PRN (20:13)
[2017-11-04] MEDS: CARBOHYDRATES FOR HYPOGLYCEMIA PO PRN ×2 (20:28→20:48)
[2017-11-04] MEDS ORDERED: SIMVASTATIN 40 MG TAB PO SCH (21:00)
[2017-11-04] MEDS: TAMSULOSIN HCL 0.4 MG CAP PO SCH (21:43)
[2017-11-04] MEDS: METOPROLOL SUCC 50MG EXT REL TAB PO SCH (21:47)
--- NOTE | 2017-11-04 22:53 | Progress Note ---
Subjective Date of Service: Nov 04, 2017. Subjective Pt evaluation today including: conversation w/ patient, physical exam 66 yo m with history of Parkinson's, chronic back pain. Patient has severe back pain today. Patient reports that the pain relief from his pain medicine is not controlling his symptoms. Patient is asking for a stronger pain medicine. Patient states that he feeling that he has 2 lumps in his back that are improving. Problem List Medical Problems: (1) Altered mental status Status: Acute (2) Altered mental status Status: Acute (3) Congestive heart failure Status: Acute (4) Cough Status: Acute (5) Dyskinesia due to Parkinson's disease Status: Acute (6) Encounter for smoking cessation counseling Status: Acute (7) Epidural abscess Status: Acute (8) Generalized weakness Status: Acute (9) Intractable pain Status: Acute (10) Leukocytosis Status: Acute (11) Leukocytosis Status: Acute (12) Low back pain Status: Acute (13) Lumbar disc disease Status: Acute (14) Need for intravenous access Status: Acute (15) New onset of congestive heart failure Status: Acute (16) New onset seizure Status: Acute (17) Parkinson's disease Status: Acute (18) Parkinson's disease (tremor, stiffness, slow motion, unstableposture) Status: Acute (19) Post op infection Status: Acute (20) Right hip pain Status: Acute (21) Sciatica Status: Acute (22) Sciatica Status: Acute (23) Sepsis Status: Acute (24) Shaking Status: Acute (25) Shortness of breath Status: Acute (26) Substernal chest pain Status: Acute Review of Systems Constitutional: No fever, No chills Eyes: No worsening of vision ENT: No hearing loss Respiratory: No cough Cardiac: No chest pain Abdomen: No pain Neurologic: No memory loss Psychiatric: No depression symptoms Heme: No abnormal bleeding/bruising Endo: No fatigue Skin: No rash All Other Systems: Reviewed and Negative Objective Vital Signs Date Time Temp Pulse Resp B/P (MAP) Pulse Ox O2 Delivery O2 Flow Rate FiO2 11/04/17 22:44 80 90 11/04/17 21:44 78 104/55 (71) 11/04/17 19:41 74 16 92 Room Air 11/04/17 15:50 Room Air 11/04/17 15:04 36.8 76 20 104/58 (73) 92 Room Air 11/04/17 14:28 78 18 93 Room Air 11/04/17 08:00 Room Air 11/04/17 07:29 75 18 96 BiPAP/CPAP 21 11/04/17 07:29 75 95 11/04/17 07:18 36.9 72 18 127/69 (88) 95 CPAP 11/04/17 01:31 78 94 11/04/17 01:08 72 18 95 BiPAP/CPAP 21 11/03/17 23:10 36.7 80 18 146/70 (95) 97 Room Air Physical Exam Comments: General: patient resting comfortably in bed, NAD, AA&O x 4, Parkinsonian movement, +chorea Skin: warm, dry, intact, scattered ecchymoses on forearms HEENT: NC/AT, PERRL, EOMI, anicteric sclera, conjunctiva without injection, nares patent, dry mucus membranes, no oropharyngeal lesions, poor dentition, neck supple, trachea midline, no thyromegaly, no LAD Heart: +S1/S2, irregularly irregular, no m/r/g Lungs: equal air entry bilaterally, no rales/rhonchi/wheezes Abdomen: soft, NT/ND, no masses/organomegaly/ascites, +MIDLINE TENDERNESS WITH PERCUSSION OF LUMBAR SPINE, +SOFT TISSUE FULLNESS Extremities: warm, well perfused, no clubbing/cyanosis or edema, 2+ palpable pulses in UE/LE bilaterally Neuro: CN II-XII grossly intact, MS 5/5 in UE/LE bilaterally, sensation intact , no deficits noted Laboratory Results Last 24 Hours Test 11/04/17 06:22 11/04/17 08:06 11/04/17 11:57 11/04/17 17:09 Total Creatine Kinase 25 U/L Bedside Glucose 102 mg/dl 103 mg/dl 92 mg/dl Test 11/04/17 20:22 11/04/17 20:23 11/04/17 20:43 11/04/17 20:44 Bedside Glucose 57 mg/dl 60 mg/dl 59 mg/dl 60 mg/dl Test 11/04/17 21:03 Bedside Glucose 71 mg/dl Assessment and Plan 66yo male with multiple medical problems presenting with 1 month of progressive LBP, outpatient MRI with concerns for progressive discitis/osteomyelitis at L4- L5 as well as phlegmon at L4-S1. L4-L5 with mild displacement of the thecal sac to the left with severe central canal narrowing. Enhancement of soft tissues at the laminectomy site concerning for infectious change. 1. Back pain with Osteomyelitis/Phlegmon vs abscess - patient afebrile, hemodynamically stable. Non-septic in appearance. Leukocytosis with WBC=13.31 , Lactate WNL. Elevate ESR and CRP CT Lumbar spine: Moderate paravertebral edema at the L4-S1 level, as shown on MRI of November 03, 2017. This favors an infectious process which extends into the right psoas muscle. -Blood cultures pending -Preliminary is pending -Cefepime 2gm IV q 4 -Daptomycin 6mg/kg daily -Appreciate ID recommendations: agree with antibiotic selection -Due to pain not being controlled, will switch to CAR WIPER pump Dilaudid -Zofran PRN nausea -Continue Flexeril, Cymbalta for pain control -Consultation with Dr. Wheeler from Orthopedics - appreciate assistance with this case -Hold statin while on Daptomycin 2. Parkinson's Disease - stable, chronic -Continue Sinemet 25/100 1 tab QID and CR 50/200 1 tab BID. Some confusion with medication reconciliation. Will proceed with aforementioned dosing for now. Note that patient may require more Sinemet CR 50/200 3. COPD - stable, no respiratory distress, adequate oxygenation and ventilation on room air -Continue Xopenex PRN -Continue Advair -Continue Spiriva -Smoking cessation counseling 4. AF - patient presently rate controlled. Not on anticoagulation -Continue Amiodarone -Continue to monitor 5. Hypertension -patient presently mildly hypertensive -Continue Amlodipine, Hydralazine and Metoprolol 6. CAD s/p CO, s/p CABG - stable, no CP -Continue Metoprolol, ASA -No new findings on EKG except for PVCs. -Holding statin as above 7. LES - stable -CPAP qHS 8. DM - blood sugar presently 88. No report of diabetic medication on medication reconciliation -Will cover with ISS -BS checks 9. BPH - stable, chronic -Continue Flomax 10. F/E/N - NSS at 80mL/hr x 2 liters, monitor electrolytes and replete as needed. AHA/DM diet as tolerated. Continue bowel regimen to include TID Colace , Miralax and Amitiza. Continue Vitamin D3 11. Ppx - Lovenox and Protonix 12. Code - full per discussion with patient Continued [facility] stay due to: other (requires surgery.)
[2017-11-05] VITALS (8 sets, daily range): BP systolic 110–143; BP diastolic 56–74; PULSE 70–82; TEMP 36.5–37.2; O2SAT 90–96
[2017-11-05] MEDS: SODIUM CHLORIDE 0.9% 1000ML 1,000 ML IV SCH (00:38)
[2017-11-05] MEDS: LEVALBUTEROL 1.25MG/3ML NEB INH SCH ×4 (02:30→19:31)
[2017-11-05] MEDS: CEFEPIME IV 2,000 MG in SYRINGE 7.5 ML IV SCH ×2 (03:33→16:39)
[2017-11-05] MEDS: ACETAMINOPHEN 325 MG TAB PO PRN ×2 (03:38→21:25)
[2017-11-05] MEDS: ENOXAPARIN 40 MG/0.4 ML SYR SQ SCH (06:38)
--- NOTE | 2017-11-05 08:21 | Progress Note ---
Progress Note Date of Service Nov 05, 2017. Progress Note I reviewed the patient's imaging this morning. I reviewed his results with the patient. I am concerned he is demonstrating some loosening around the hardware at L4-5 level. This is also a nidus for continued infection. I recommended to the patient that we undergo surgery removal of posterior instrumentation at L4- 5. We will most likely place stimulator and beads impregnated with vancomycin and gent. He understands and agrees with this plan. He will be made n.p.o. after midnight.
[2017-11-05] MEDS: INSULIN ASPART 100 UNITS/ML 3 ML PEN SC SCH ×4 (09:03→21:00)
[2017-11-05] MEDS: FLUTICASONE/SALMETEROL 250/50 (ADVAIR) 14 PUFF/1 INHALER INH SCH ×2 (09:11→21:03)
[2017-11-05] MEDS: TIOTROPIUM BROMIDE 5 PUFF/90 MCG INH INH SCH (09:12)
[2017-11-05] MEDS: LUBIPROSTONE 8 MCG CAP PO SCH ×3 (09:25→21:04)
[2017-11-05] MEDS: ASPIRIN 81 MG ECTAB PO SCH (09:25)
[2017-11-05] MEDS: CHOLECALCIFEROL 1000 INTER.UNIT TAB PO SCH (09:26)
[2017-11-05] MEDS: DULOXETINE HCL 60 MG CAP PO SCH (09:27)
[2017-11-05] MEDS: AMLODIPINE BESYLATE 5 MG TAB PO SCH (09:27)
[2017-11-05] MEDS: AMIODARONE 200 MG TAB PO SCH (09:27)
[2017-11-05] MEDS: CARBIDOPA/LEVODOPA 50/200MG EXT REL TAB PO SCH ×2 (09:27→21:04)
[2017-11-05] MEDS: PANTOprazole SOD 40 MG TAB PO SCH (09:27)
[2017-11-05] MEDS: CARBIDOPA/LEVODOPA 25/100MG TAB PO SCH ×4 (09:27→21:05)
[2017-11-05] MEDS: DOCUSATE SODIUM 100 MG CAP PO SCH ×3 (09:27→21:04)
[2017-11-05] MEDS: MULTIVITAMIN TAB PO SCH (09:27)
[2017-11-05] MEDS: POLYETHYLENE (MIRALAX) 17 GM PACK PO SCH (09:28)
[2017-11-05] MEDS: HYDROmorphone HCL 0.5MG/ML 50 ML CASSETTE IV PRN ×2 (11:26→23:01)
--- NOTE | 2017-11-05 16:43 | Infectious Disease Progress Nt ---
Progress Note Date of Service Nov 05, 2017. Subjective Pt evaluation today including: conversation w/ patient, physical exam, chart review, lab review, review of studies, conversation w/ crop consultant, review of inpatient medication list Patient still complaining of severe back pain, currently 8 out of 10 in intensity. Plans for possible OR drainage tomorrow noted. Remains afebrile. Blood cultures negative to date. All Other Systems: Reviewed and Negative Medications Current Inpatient Medications Medications (Trade) Dose Ordered Sig/Iogr Route Start Time Stop Time Status Last Admin Dose Admin Amiodarone HCl (Cordarone Tab) 200 mg DAILY PO 11/04/17 09:00 12/04/17 08:59 11/05/17 09:27 200 MG Amlodipine Besylate (Norvasc Tab) 10 mg DAILY PO 11/04/17 09:00 12/04/17 08:59 11/05/17 09:27 10 MG Aspirin (Ecotrin Tab) 81 mg DAILY PO 11/04/17 09:00 12/04/17 08:59 11/05/17 09:25 81 MG Carbidopa/Levodopa (Sinemet Cr 50/ 200MG Tab) 1 tab BID PO 11/04/17 09:00 12/04/17 08:59 11/05/17 09:27 1 TAB Cyclobenzaprine HCl (Flexeril Tab) 10 mg TID PRN PO 11/03/17 21:15 12/03/17 21:14 11/04/17 11:44 10 MG Docusate Sodium (coLACE CAP) 100 mg TID PO 11/04/17 09:00 12/04/17 08:59 11/05/17 14:18 100 MG Duloxetine HCl (Cymbalta Cap) 60 mg DAILY PO 11/04/17 09:00 12/04/17 08:59 11/05/17 09:27 60 MG Salmeterol Xinafoate/ Fluticasone (Advair Diskus 250/50 Inh) 1 puff Q12 INH 11/04/17 09:00 12/04/17 08:59 11/05/17 09:11 1 PUFF Hydralazine HCl (Apresoline Tab) 100 mg TID PO 11/04/17 09:00 12/04/17 08:59 11/05/17 14:19 100 MG Levalbuterol (Xopenex 1.25MG/ 3ML Neb) 1.25 mg Q6R INH 11/04/17 03:00 12/04/17 02:59 11/05/17 14:08 1.25 MG Levalbuterol (Xopenex 1.25MG/ 3ML Neb) 1.25 mg Q2H PRN INH 11/03/17 21:15 12/03/17 21:14 Metoprolol Succinate (Toprol Xl Tab) 75 mg HS PO 11/04/17 21:00 12/04/17 20:59 11/04/17 21:47 75 MG Multivitamins (Multivitamin Tab) 1 tab DAILY PO 11/04/17 09:00 12/04/17 08:59 11/05/17 09:27 1 TAB Tamsulosin HCl (Flomax Cap) 0.4 mg HS PO 11/04/17 21:00 12/04/17 20:59 11/04/17 21:43 0.4 MG Tiotropium [place] (Spiriva Handihaler Inhaler) 1 puff DAILY INH 11/04/17 09:00 12/04/17 08:59 11/05/17 09:12 1 PUFF Cholecalciferol (Vitamin D Tab) 2,000 inter.unit DAILY PO 11/04/17 09:00 12/04/17 08:59 11/05/17 09:26 2,000 INTER.UNIT Lubiprostone (Amitiza) 8 mcg TID PO 11/04/17 09:00 12/04/17 08:59 11/05/17 14:18 8 MCG Pantoprazole Sodium (Protonix Tab) 40 mg DAILY PO 11/04/17 09:00 12/04/17 08:59 11/05/17 09:27 40 MG Polyethylene (Miralax Powder Packet) 17 gm DAILY PO 11/04/17 09:00 12/04/17 08:59 11/05/17 09:28 17 GM Morphine Sulfate (MoRPHine SULFATE INJ) 2 mg Q4 PRN IV 11/03/17 21:15 11/17/17 21:14 11/04/17 15:52 2 MG Cefepime HCl 2000 mg/Syringe 20 ml @ 5 mls/min Q12H IV 11/04/17 04:00 12/16/17 03:59 11/05/17 03:33 5 MLS/MIN Daptomycin 450 mg/ Syringe 9 ml @ 4.5 mls/min Q24H IV 11/04/17 18:00 12/15/17 17:59 11/04/17 18:21 4.5 MLS/MIN Enoxaparin Sodium (Lovenox Inj) 40 mg Q24H SQ 11/04/17 06:00 12/04/17 05:59 11/05/17 06:38 40 MG Acetaminophen (Tylenol Tab) 650 mg Q4H PRN PO 11/03/17 21:15 12/03/17 21:14 11/05/17 03:38 650 MG Ondansetron HCl (Zofran Inj) 4 mg Q6H PRN IV 11/03/17 21:15 12/03/17 21:14 Insulin Aspart (novoLOG ASPART) SLIDING SCALE If C... ACHS SC 11/04/17 07:00 12/04/17 06:59 11/05/17 13:16 2 UNITS Glucose (Glucose 40% Gel) 15-30 GRAMS 15 GRAMS... UD PRN PO 11/03/17 21:15 12/03/17 21:14 Glucose (Glucose Chew Tab) 4-8 Tablets 4 Tabl... UD PRN PO 11/03/17 21:15 12/03/17 21:14 Dextrose (Dextrose 50% 50ML Syringe) 25-50ML 25ML FOR ... UD PRN IV 11/03/17 21:15 12/03/17 21:14 Glucagon (Glucagon Inj) 1 mg UD PRN SQ 11/03/17 21:15 12/03/17 21:14 Carbohydrates (Carbohydrates For Hypoglycemia) 15-30 GRAMS 15 grams if BSG 54-69... UD PRN PO 11/03/17 21:15 12/03/17 21:14 11/04/17 20:48 15 GM Carbidopa/Levodopa (Sinemet 25/ 100MG Tab) 1 tab QID PO 11/04/17 09:00 12/04/17 08:59 11/05/17 14:18 1 TAB Naloxone HCl (Narcan Inj) 0.1 mg Q5M PRN IV 11/04/17 19:00 12/04/17 18:59 Hydromorphone HCl (Dilaudid [employer]) 25 mg PRN PRN IV 11/04/17 19:00 11/18/17 18:59 11/05/17 11:26 25 MG Sodium Chloride 1,000 ml @ 15 mls/hr Q24H IV 11/04/17 18:55 12/04/17 18:54 11/05/17 00:38 15 MLS/HR Objective Vital Signs Date Time Temp Pulse Resp B/P (MAP) Pulse Ox O2 Delivery O2 Flow Rate FiO2 11/05/17 14:59 36.6 76 18 126/70 (88) 95 Room Air 11/05/17 07:32 37.2 70 18 110/63 (79) 96 Room Air 11/05/17 07:05 74 16 96 Room Air 11/05/17 02:30 79 16 93 BiPAP/CPAP 21 11/05/17 00:15 Room Air CPAP 11/04/17 22:54 37.2 81 16 115/82 (93) 94 CPAP 11/04/17 22:44 80 90 11/04/17 21:44 78 104/55 (71) 11/04/17 19:41 74 16 92 Room Air Physical Exam General Appearance: WD/WN, + mild distress Eyes: normal inspection, EOMI, sclerae normal ENT: normal ENT inspection, hearing grossly normal, pharynx normal Neck: supple, no adenopathy, thyroid normal, trachea midline Respiratory/Chest: chest non-tender, lungs clear, normal breath sounds, no respiratory distress Cardiovascular: regular rate, rhythm, no gallop, no murmur Abdomen: normal bowel sounds, non tender, soft, no organomegaly Extremities: non-tender, no calf tenderness Neurologic/Psychiatric: alert, oriented x 3 Skin: normal color, warm/dry, no rash Lymphatic: no adenopathy Laboratory Results RUN DATE: 11/05/17 [facility] LAB PAGE 1 RUN TIME: 729 Specimen Inquiry PATIENT: KAILYN JORDAN LOC: [facility] U # : [id number] AGE/SX: 66/M ROOM: [facility] REG : 11/03/[address]: Rodney Hoover M.D. : 1950 BED: 2 DIS : STATUS: ADM IN TLOC: SPEC #: [id number] ANNABELLA: 11/03/17 STATUS: RES REQ #: [id number] RECD: 11/03/[address]: Yonis Garcia DO SOURCE: BLOOD ENTR: 11/03/17 [facility] DR: Jeromy Hanson M.D. [facility]: BLOOD CULTURE COMMENTS: SET 2 Procedure Result Verified Site BLD CULT Preliminary 11/05/17-728 NO GROWTH TO DATE. Last 24 Hours Test 11/04/17 17:09 11/04/17 20:22 11/04/17 20:23 11/04/17 20:43 Bedside Glucose 92 mg/dl 57 mg/dl 60 mg/dl 59 mg/dl Test 11/04/17 20:44 11/04/17 21:03 11/05/17 08:19 11/05/17 12:00 Bedside Glucose 60 mg/dl 71 mg/dl 92 mg/dl 111 mg/dl Patient Name: KAILYN JORDAN Unit Number: [id number] Dictated: 11/04/171612 Transcribed: 11/04/171630 JONH Printed Date/Time: [~ rep prt dt]/[~ rep prt tm] [~ rep ct labl] - [~ rep ct ivnm] [facility] [place] [address] Dictated: 11/04/171612 Transcribed: 11/04/171630 JONH Printed Date/Time: [~ rep prt dt]/[~ rep prt tm] [~ rep ct labl] - [~ rep ct ivnm] LUMBAR SPINE CT WITHOUT CONTRAST CLINICAL HISTORY: Back pain. COMPARISON STUDY: Lumbar spine CT August 31, 2015 and MRI of the lumbar spine November 03, 2017. TECHNIQUE: Axial images of the lumbar spine were obtained without IV contrast. Sagittal and coronal reconstructions were viewed. FINDINGS: The patient is status post L4-L5 posterior decompression and bilateral pedicle screw fusion. There is lucency surrounding the bilateral L4 and L5 pedicle screws which suggests loosening. No acute lumbar spine fracture or suspicious lesion is evident on this examination. The central canal and neural foramen are suboptimally assessed given CT technique. There is marked disc space narrowing at L5-S1. Note is made of moderate paravertebral edema at the L4-S1 level as shown on MRI of November 03, 2017. No discrete fluid collection is identified on this unenhanced CT. Epidural space is suboptimally assessed by CT, particularly given artifact from the surgical hardware. There are prominent para-aortic lymph nodes which measure up to 8 mm in short axis diameter. There is osteoarthrosis bilateral sacral joints with partial ankylosis. IMPRESSION: 1. Status post L4-L5 posterior decompression and bilateral pedicle screw fusion. Lucency surrounding the bilateral L4 and L5 pedicle screws suggests loosening. 2. Moderate paravertebral edema at the L4-S1 level, as shown on MRI of November 03, 2017. This favors an infectious process which extends into the right psoas muscle. No fluid collection identified although sensitivity diminished on this unenhanced CT. 3. Suboptimal evaluation of the epidural space given CT technique and artifact from the surgical hardware. This is better depicted on MRI of November 03, 2017. 4. No acute lumbar spine fracture or subluxation. Electronically signed by: Gerald Emerson M.D. 11/04/2017 4:37 PM Dictated Date/Time: 11/04/2017 4:13 PM The status of this report is Signed. Draft = Not yet reviewed or approved by Radiologist. Signed = Reviewed and approved by Radiologist. <AttendingPhy>Izabella Herrmann MD</AttendingPhy> <FamilyPhy>Jeromy Hanson M.D.</FamilyPhy> <PrimaryPhy>Jeromy Hanson M.D.</ PrimaryPhy> <UnitNumber>[id number]</UnitNumber> <VisitNumber>[id number]</ VisitNumber> <PatientName>KAILYN JORDAN</PatientName> <DateOfBirth>1950</ DateOfBirth> <Location>CLIZ</Location> <ServiceDate>11/03/17</ServiceDate> <MNE >ESINDI</MNE> <OrderingPhy>Juan Luis Wheeler D.O.</OrderingPhy> <OrderingPhyMNE >f rep ord dr stewart</OrderingPhyMNE> <DictatingPhyMNE>f rep dict dr stewart</ DictatingPhyMNE> <CCListMNE>f rep ct mne</CCListMNE> <AdmittingPhyMNE>f pt admit dr stewart</AdmittingPhyMNE> <AttendingPhyMNE>f pt attend dr stewart</ AttendingPhyMNE> <ConsultingPhyMNE>f pt consult dr stewart</ConsultingPhyMNE> <FamilyPhyMNE>f pt fam dr stewart</FamilyPhyMNE> <OtherPhyMNE>f pt other dr stewart</OtherPhyMNE> < PrimaryPhyMNE>f pt prim care dr stewart</PrimaryPhyMNE> <ReferringPhyMNE>f pt referring dr stewart</ReferringPhyMNE> Assessment and Plan Patient with worsening diskitis, osteomyelitis, and phlegmon now involving the lumbar area and psoas muscle. Patient has been started on broad-spectrum antibiotics with daptomycin and cefepime pending probable surgical debridement with cultures tomorrow. Will adjust once these cultures are available. Will follow.
[2017-11-05] MEDS ORDERED: NURSING VERBAL MED ORDER ONE (17:30)
--- NOTE | 2017-11-05 17:35 | Anesthesiology Progress Note ---
Anesthesia Progress Note Date of Service Nov 05, 2017. Progress Notes This is a 66 y/o w male for I & D of lumbar spine wound,s/p Lumbar spine surgery x 4, of which, the most recent was 12/2016.PMHx is sig. for COPD(long time heavy smoker),sleep apnea on CPAP, CAD,s/p OH,s/p CABG 2000,,HTN, Hyperlipidemia,CHF,Hx/o AFIB,GERD,Anemia,Obesity,NIDDM, and Parkinson's Dis.Pt w /ICM and low normal EF.Pt in sinus rhythm at this time.Discussed anesthesia with pt.,risks vs benefits ,all questions answered.Informed consent obtained. ASA 4
[2017-11-05] MEDS: DAPTOmycin IV 450 MG in SYRINGE 0 ML IV SCH (18:37)
[2017-11-05] MEDS: TAMSULOSIN HCL 0.4 MG CAP PO SCH (21:04)
[2017-11-05] MEDS: METOPROLOL SUCC 50MG EXT REL TAB PO SCH (21:15)
--- NOTE | 2017-11-05 22:37 | Progress Note ---
Subjective Date of Service: Nov 05, 2017. Subjective Pt evaluation today including: conversation w/ patient, physical exam Patient reports that his pain has improved. Patient reports being anxious regarding his procedure which is scheduled tomorrow. It appears they will need to remove the hardware and patient states this concerns him. Problem List Medical Problems: (1) Altered mental status Status: Acute (2) Altered mental status Status: Acute (3) Congestive heart failure Status: Acute (4) Cough Status: Acute (5) Dyskinesia due to Parkinson's disease Status: Acute (6) Encounter for smoking cessation counseling Status: Acute (7) Epidural abscess Status: Acute (8) Generalized weakness Status: Acute (9) Intractable pain Status: Acute (10) Leukocytosis Status: Acute (11) Leukocytosis Status: Acute (12) Low back pain Status: Acute (13) Lumbar disc disease Status: Acute (14) Need for intravenous access Status: Acute (15) New onset of congestive heart failure Status: Acute (16) New onset seizure Status: Acute (17) Parkinson's disease Status: Acute (18) Parkinson's disease (tremor, stiffness, slow motion, unstableposture) Status: Acute (19) Post op infection Status: Acute (20) Right hip pain Status: Acute (21) Sciatica Status: Acute (22) Sciatica Status: Acute (23) Sepsis Status: Acute (24) Shaking Status: Acute (25) Shortness of breath Status: Acute (26) Substernal chest pain Status: Acute Review of Systems Constitutional: No fever, No chills Eyes: No worsening of vision ENT: No hearing loss Respiratory: No cough Cardiac: No chest pain Abdomen: No pain MSK: Low back pain Neurologic: No memory loss, +tremos Psychiatric: No depression symptoms Heme: No abnormal bleeding/bruising Endo: No fatigue Skin: No rash All Other Systems: Reviewed and Negative Objective Vital Signs Date Time Temp Pulse Resp B/P (MAP) Pulse Ox O2 Delivery O2 Flow Rate FiO2 11/05/17 21:14 75 143/74 (97) 11/05/17 19:34 75 18 93 Room Air 11/05/17 16:30 Room Air 11/05/17 14:59 36.6 76 18 126/70 (88) 95 Room Air 11/05/17 07:32 37.2 70 18 110/63 (79) 96 Room Air 11/05/17 07:05 74 16 96 Room Air 11/05/17 02:30 79 16 93 BiPAP/CPAP 21 11/05/17 00:15 Room Air CPAP 11/04/17 22:54 37.2 81 16 115/82 (93) 94 CPAP 11/04/17 22:44 80 90 Physical Exam Comments: General: patient resting comfortably in bed, NAD, AA&O x 4, Parkinsonian movement, +chorea Skin: warm, dry, intact, scattered ecchymoses on forearms HEENT: NC/AT, PERRL, EOMI, anicteric sclera, conjunctiva without injection, nares patent, dry mucus membranes, no oropharyngeal lesions, poor dentition, neck supple, trachea midline, no thyromegaly, no LAD Heart: +S1/S2, irregularly irregular, no m/r/g Lungs: equal air entry bilaterally, no rales/rhonchi/wheezes Abdomen: soft, NT/ND, no masses/organomegaly/ascites, +MIDLINE TENDERNESS WITH PERCUSSION OF LUMBAR SPINE, +SOFT TISSUE FULLNESS Extremities: warm, well perfused, no clubbing/cyanosis or edema, 2+ palpable pulses in UE/LE bilaterally Neuro: CN II-XII grossly intact, MS 5/5 in UE/LE bilaterally, sensation intact , no deficits noted Laboratory Results Last 24 Hours Test 11/05/17 08:19 11/05/17 12:00 11/05/17 17:00 11/05/17 20:55 Bedside Glucose 92 mg/dl 111 mg/dl 103 mg/dl 99 mg/dl Assessment and Plan 66yo male with multiple medical problems presenting with 1 month of progressive LBP, outpatient MRI with concerns for progressive discitis/osteomyelitis at L4- L5 as well as phlegmon at L4-S1. L4-L5 with mild displacement of the thecal sac to the left with severe central canal narrowing. Enhancement of soft tissues at the laminectomy site concerning for infectious change. 1. Back pain with Osteomyelitis/Phlegmon vs abscess - patient afebrile, hemodynamically stable. Non-septic in appearance. Leukocytosis with WBC=13.31 , Lactate WNL. Elevate ESR and CRP CT Lumbar spine: Moderate paravertebral edema at the L4-S1 level, as shown on MRI of November 03, 2017. This favors an infectious process which extends into the right psoas muscle. -Blood cultures pending -Preliminary results are negative -Cefepime 2gm IV q 4 -Daptomycin 6mg/kg daily -Appreciate ID recommendations: agree with antibiotic selection -Due to pain not being controlled, will switch to [employer] pump Dilaudid -Zofran PRN nausea -Continue Flexeril, Cymbalta for pain control -Consultation with Dr. Wheeler from Orthopedics - appreciate assistance with this case -Hold statin while on Daptomycin -Patient will be NPO after midnight for removal of hardware. 2. Parkinson's Disease - stable, chronic -Continue Sinemet 25/100 1 tab QID and CR 50/200 1 tab BID. -Appears to be stable. -Patient continues to have chorea and tremors. 3. COPD - stable, no respiratory distress, adequate oxygenation and ventilation on room air -Continue Xopenex PRN -Continue Advair -Continue Spiriva -Smoking cessation counseling 4. AF - patient presently rate controlled. Not on anticoagulation -Continue Amiodarone -Continue to monitor 5. Hypertension -patient presently mildly hypertensive -Continue Amlodipine, Hydralazine and Metoprolol 6. CAD s/p HI, s/p CABG - stable, no CP -Continue Metoprolol, ASA -No new findings on EKG except for PVCs. -Holding statin as above 7. LES - stable -CPAP qHS 8. DM - blood sugar presently 88. No report of diabetic medication on medication reconciliation -Will cover with ISS -BS checks 9. BPH - stable, chronic -Continue Flomax 10. F/E/N - NSS at 80mL/hr x 2 liters, monitor electrolytes and replete as needed. AHA/DM diet as tolerated. Continue bowel regimen to include TID Colace , Miralax and Amitiza. Continue Vitamin D3 11. Ppx - Lovenox and Protonix 12. Code - full per discussion with patient
[2017-11-06] VITALS (12 sets, daily range): BP systolic 114–146; BP diastolic 56–79; PULSE 76–90; TEMP 36.3–36.7; O2SAT 90–100
[2017-11-06] MEDS: SODIUM CHLORIDE 0.9% 1000ML 1,000 ML IV SCH ×4 (00:25→23:19)
[2017-11-06] MEDS: LEVALBUTEROL 1.25MG/3ML NEB INH SCH ×4 (01:54→19:17)
[2017-11-06] MEDS ORDERED: NURSING VERBAL MED ORDER ONE ×2 (02:15→18:45)
[2017-11-06] MEDS: CEFEPIME IV 2,000 MG in SYRINGE 7.5 ML IV SCH ×2 (03:34→19:50)
[2017-11-06] MEDS: ENOXAPARIN 40 MG/0.4 ML SYR SQ SCH (05:16)
[2017-11-06] MEDS ORDERED: INSULIN ASPART 100 UNITS/ML 3 ML PEN SC SCH (06:00)
[2017-11-06 06:50] LABS: HEMATOCRIT 30.2 % (42-52); HEMOGLOBIN 9.5 g/dL (14.0-18.0); MEAN CORPUSCULAR HEMOGLOBIN 29.9 pg (25-34); MEAN CORPUSCULAR HGB CONC 31.5 g/dl (32-36); PLATELET COUNT 171 K/uL (130-400); RED CELL DISTRIBUTION WIDTH CV 15.8 % (11.5-14.5)
[2017-11-06] MEDS ORDERED: ACETAMINOPHEN IV 650 MG in EMPTY BAG 0 ML IV PRN (07:00)
[2017-11-06] MEDS: HYDROmorphone HCL 0.5MG/ML 50 ML CASSETTE IV PRN ×3 (07:07→19:12)
[2017-11-06 07:21] LABS: CREATININE 1.51 mg/dl (0.60-1.40)
[2017-11-06] MEDS: FLUTICASONE/SALMETEROL 250/50 (ADVAIR) 14 PUFF/1 INHALER INH SCH ×2 (08:39→21:57)
[2017-11-06] MEDS: AMIODARONE 200 MG TAB PO SCH (09:00)
[2017-11-06] MEDS: LUBIPROSTONE 8 MCG CAP PO SCH ×3 (09:00→21:57)
[2017-11-06] MEDS: POLYETHYLENE (MIRALAX) 17 GM PACK PO SCH (09:00)
[2017-11-06] MEDS: CARBIDOPA/LEVODOPA 25/100MG TAB PO SCH ×4 (09:00→21:58)
[2017-11-06] MEDS: CHOLECALCIFEROL 1000 INTER.UNIT TAB PO SCH (09:00)
[2017-11-06] MEDS: AMLODIPINE BESYLATE 5 MG TAB PO SCH (09:00)
[2017-11-06] MEDS: MULTIVITAMIN TAB PO SCH (09:00)
[2017-11-06] MEDS: DOCUSATE SODIUM 100 MG CAP PO SCH ×3 (09:00→21:56)
[2017-11-06] MEDS: CARBIDOPA/LEVODOPA 50/200MG EXT REL TAB PO SCH ×2 (09:00→21:56)
[2017-11-06] MEDS: ASPIRIN 81 MG ECTAB PO SCH (09:00)
[2017-11-06] MEDS: TIOTROPIUM BROMIDE 5 PUFF/90 MCG INH INH SCH (11:12)
[2017-11-06] MEDS: PANTOprazole SOD 40 MG TAB PO SCH (15:00)
[2017-11-06] MEDS: DULOXETINE HCL 60 MG CAP PO SCH (15:00)
[2017-11-06] MEDS ORDERED: PROPOFOL IV EMULSION 10 MG/ML 20 ML VIAL ONE (15:01)
[2017-11-06] MEDS ORDERED: GLYCOPYRROLATE INJ 0.2 MG/ML VIAL ONE ×2 (15:01→15:34)
[2017-11-06] MEDS ORDERED: NEOSTIGMINE METHYLSULFATE 1 MG/ML 10ML VIAL ONE (15:01)
[2017-11-06] MEDS ORDERED: ONDANSETRON INJ 2 MG/ML 2 ML VIAL ONE (15:01)
[2017-11-06] MEDS ORDERED: LIDOCAINE HCL 2% 2 ML VIAL (20MG/ML) ONE (15:01)
[2017-11-06] MEDS ORDERED: ROCURONIUM BROMIDE 10 MG/ML 5 ML VIAL ONE (15:01)
[2017-11-06] MEDS ORDERED: DEXAMETHASONE SOD INJ 4 MG/ML VIAL ONE (15:01)
[2017-11-06] MEDS ORDERED: MIDAZOLAM HCL 1 MG/ML 2ML VIAL ONE (15:31)
[2017-11-06] MEDS ORDERED: FENTANYL CITRATE INJ 50 MCG/1 ML 2 ML VIAL ONE ×2 (15:31→17:07)
--- NOTE | 2017-11-06 15:44 | History & Physical Bridge Note ---
H&P Re-Evaluation Bridge Note: I have examined the patient, reviewed the History & Physical and in the interval since the performance of the History & Physical I have noted the following changes of clinical significance: No changes noted
[2017-11-06] MEDS ORDERED: BACITRACIN 50000 UNIT VIAL ONE (16:25)
[2017-11-06] MEDS ORDERED: BUPIVACAINE/EPINEPHRINE 0.5% MPF 1:200,000 30 ML VIAL ONE (16:25)
[2017-11-06] MEDS ORDERED: GENTAMICIN SULFATE 40 MG/ML 2 ML VIAL ONE (16:26)
[2017-11-06] MEDS ORDERED: VANCOMYCIN HCL 1000MG/20ML VIAL ONE (16:26)
[2017-11-06] MEDS ORDERED: FLOSEAL HEMOSTATIC MATRIX 5ML TOP ONE (17:35)
--- NOTE | 2017-11-06 17:37 | [facility] Operative Report ---
Operative Report Operative Date Nov 06, 2017. Pre-Operative Diagnosis Lumbar epidural abscess L4-5 Post-Operative Diagnosis Same Procedure(s) Performed 1. Removal of posterior instrumentation L4-5. #2 revision decompression L4-5. #3 expiration of fusion L4-5. #4 placement of stimulant beads. Surgeon Dr. Wheeler Photoengraving Etcher Apprentice Surgeon(s) Marva Vallejo PA-C Estimated Blood Loss 50 Specimens A: Explanted hardware, lumbar spine Description of Procedure Patient was met with preoperatively case discussed all questions are addressed. At that point patient was taken back to the operative suite underwent intubation and placed in a prone position injection table on top of the Gio frame. All bony prominences well-padded eyes inspected to ensure no external pressure placed upon them. This point the lumbar spine was prepped and draped in normal sterile fashion. Sharp dissection with the assistance of Bovie cautery was performed down to and exposing the L4-5 instrumentation bilaterally. It was subsequently removed. Obvious loosening of all 4 screws was noted. Then performed a small revision laminotomy on the right exploring the epidural space for any fluid collections. None were noted. Both soft tissue as well as swab cultures were obtained and sent to the lab. Scar tissue was removed to healthy musculature bone graft was explored in a filled the pedicle screw holes with gent and vancomycin impregnated stimulant beads. He wound was also copiously irrigated. A 15 round LILLY drain inserted. Incision was then closed with 1 Vicryl fascia 2-0 Vicryl subcutaneous and 4 Monocryl for fashion closure. Steri-Strips sterile dressings placed. Patient will continue PACU stable disc. Please note Alyssa Vallejo was present throughout the entire procedure involved in patient positioning complex portions of the surgery and final skin closure. I attest to the content of the Intraoperative Record and any orders documented therein. Any exceptions are noted below.
[2017-11-06] MEDS ORDERED: LORAZEPAM 1 MG TAB PO PRN (17:45)
[2017-11-06] MEDS ORDERED: LORAZEPAM INJ 1 MG in SYRINGE 0 ML IV PRN (17:45)
[2017-11-06] MEDS ORDERED: MAGNESIUM HYDROXIDE SUSP 30 ML UDC PO PRN (17:45)
[2017-11-06] MEDS ORDERED: ACETAMINOPHEN 500 MG TAB PO PRN (17:45)
[2017-11-06] MEDS ORDERED: DO NOT ADMINISTER FLU VACCINE PRN (17:45)
[2017-11-06] MEDS ORDERED: DO NOT ADMINISTER PNEUMOCOCCAL VACCINE PRN (17:45)
[2017-11-06] MEDS ORDERED: ACETAMINOPHEN 325 MG TAB PO PRN (17:45)
--- NOTE | 2017-11-06 17:50 | DIAGNOSTIC IMAGING REPORT ---
LUMBAR SPINE, INTRAOPERATIVE FLUOROSCOPY HISTORY: Incision and drainage of lumbar spine with removal of hardware. FLUOROSCOPY TIME: 0.8 seconds. FINDINGS: Intraoperative fluoroscopy was provided for the lumbar spine. A single fluoroscopic spot image of the lumbar spine was submitted. Spinal fusion hardware has been completely removed. IMPRESSION: Fluoroscopy provided for removal of the lumbar spinal fusion hardware.. Electronically signed by: Kraig Johnson M.D. 11/06/2017 5:49 PM Dictated Date/Time: 11/06/2017 5:48 PM
[2017-11-06] MEDS ORDERED: HYDROmorphone INJ 1 MG/ML SYR IV PRN (18:30)
[2017-11-06] MEDS ORDERED: PROMETHAZINE HCL INJ 12.5 MG in SODIUM CHLORIDE 0.9% 50ML 50 ML IV PRN (18:30)
[2017-11-06] MEDS ORDERED: FENTANYL CITRATE INJ 50 MCG/1 ML 2 ML VIAL IV PRN (18:30)
[2017-11-06] MEDS ORDERED: EpHEDrine SULFATE INJ 50 MG/ML AMP IV PRN (18:30)
[2017-11-06] MEDS ORDERED: PHENYLEPHRINE 100MCG/ML 5ML SYR IV PRN (18:30)
[2017-11-06] MEDS ORDERED: ONDANSETRON INJ 2 MG/ML 2 ML VIAL IV PRN (18:30)
[2017-11-06] MEDS ORDERED: ATROPINE SULFATE 0.1 MG/ML 5ML SYR IV PRN (18:30)
--- NOTE | 2017-11-06 18:50 | Anesthesiology Progress Note ---
Anesthesia Post Op Note Date & Time Nov 06, 2017 at 18:50 Vital Signs Pain Intensity: 0 Vital Signs Past 12 Hours Date Time Temp Pulse Resp B/P (MAP) Pulse Ox O2 Delivery O2 Flow Rate FiO2 11/06/17 18:25 78 17 141/68 100 Oxymask 10 11/06/17 18:15 79 17 142/97 100 Oxymask 10 11/06/17 18:05 80 21 149/75 100 Oxymask 10 11/06/17 17:59 36.2 75 18 148/74 100 Oxymask 10 11/06/17 07:40 Room Air 11/06/17 07:25 36.6 76 16 119/65 (83) 98 Room Air 11/06/17 07:17 78 18 92 Room Air Notes Mental Status: alert / awake / arousable, participated in evaluation Pt Amnestic to Procedure: Yes Nausea / Vomiting: adequately controlled Pain: adequately controlled Airway Patency, RR, SpO2: stable & adequate BP & HR: stable & adequate Hydration State: stable & adequate Anesthetic Complications: no major complications apparent
[2017-11-06] MEDS: INSULIN ASPART 100 UNITS/ML 3 ML PEN SC SCH ×2 (19:00→21:53)
[2017-11-06] MEDS: DAPTOmycin IV 450 MG in SYRINGE 0 ML IV SCH (19:18)
[2017-11-06] MEDS ORDERED: DOCUSATE SODIUM 100 MG CAP PO SCH (21:00)
[2017-11-06] MEDS: METOPROLOL SUCC 50MG EXT REL TAB PO SCH (21:55)
[2017-11-06] MEDS: TAMSULOSIN HCL 0.4 MG CAP PO SCH (21:56)
[2017-11-07] VITALS (14 sets, daily range): BP systolic 103–149; BP diastolic 50–75; PULSE 81–95; TEMP 36.4–37.3; O2SAT 90–99
[2017-11-07] MEDS: LEVALBUTEROL 1.25MG/3ML NEB INH SCH ×4 (01:46→19:33)
[2017-11-07] MEDS: ENOXAPARIN 40 MG/0.4 ML SYR SQ SCH (06:05)
[2017-11-07 06:38] LABS: BASO % 0.1 %; BASO ABS # 0.02 K/uL (0-0.2); EOS % 0.1 %; EOS ABS # 0.01 K/uL (0-0.5); HEMOGLOBIN 10.2 g/dL (14.0-18.0); IG# 0.09 K/uL (0.00-0.02); LYMPH % 5.3 %; LYMPH ABS # 0.71 K/uL (1.2-3.4); MEAN CELL VOLUME 95.7 fL (80-100); MEAN CORPUSCULAR HEMOGLOBIN 29.6 pg (25-34); MEAN CORPUSCULAR HGB CONC 30.9 g/dl (32-36); MEAN PLATELET VOLUME 10.1 fL (7.4-10.4); MONO % 6.1 %; MONO ABS # 0.83 K/uL (0.11-0.59); NEUT % 87.7 %; NEUT ABS # 11.84 K/uL (1.4-6.5); PLATELET COUNT 199 K/uL (130-400); RED CELL DISTRIBUTION WIDTH CV 15.7 % (11.5-14.5); RED CELL DISTRIBUTION WIDTH SD 54.8 fL (36.4-46.3)
[2017-11-07] MEDS: HYDROmorphone HCL 0.5MG/ML 50 ML CASSETTE IV PRN ×3 (07:02→23:11)
[2017-11-07 07:16] LABS: CALCIUM 8.4 mg/dl (8.5-10.1); CREATININE 1.31 mg/dl (0.60-1.40)
--- NOTE | 2017-11-07 07:44 | Progress Note ---
Subjective Date of Service: Nov 06, 2017. Subjective Pt evaluation today including: conversation w/ patient, conversation w/ family Patient seen on Oct, in Early AM. Patient reports no significant changes today. Problem List Medical Problems: (1) Altered mental status Status: Acute (2) Altered mental status Status: Acute (3) Congestive heart failure Status: Acute (4) Cough Status: Acute (5) Dyskinesia due to Parkinson's disease Status: Acute (6) Encounter for smoking cessation counseling Status: Acute (7) Epidural abscess Status: Acute (8) Generalized weakness Status: Acute (9) Intractable pain Status: Acute (10) Leukocytosis Status: Acute (11) Leukocytosis Status: Acute (12) Low back pain Status: Acute (13) Lumbar disc disease Status: Acute (14) Need for intravenous access Status: Acute (15) New onset of congestive heart failure Status: Acute (16) New onset seizure Status: Acute (17) Parkinson's disease Status: Acute (18) Parkinson's disease (tremor, stiffness, slow motion, unstableposture) Status: Acute (19) Post op infection Status: Acute (20) Right hip pain Status: Acute (21) Sciatica Status: Acute (22) Sciatica Status: Acute (23) Sepsis Status: Acute (24) Shaking Status: Acute (25) Shortness of breath Status: Acute (26) Substernal chest pain Status: Acute Review of Systems Constitutional: No fever, No chills Eyes: No worsening of vision ENT: No hearing loss Respiratory: No cough Cardiac: No chest pain Abdomen: No pain MSK: Low back pain Neurologic: No memory loss, +tremos Psychiatric: No depression symptoms Heme: No abnormal bleeding/bruising Endo: No fatigue Skin: No rash All Other Systems: Reviewed and Negative Objective Vital Signs Date Time Temp Pulse Resp B/P (MAP) Pulse Ox O2 Delivery O2 Flow Rate FiO2 11/07/17 07:20 36.4 84 18 114/61 (78) 93 Room Air 11/07/17 06:54 84 14 93 Room Air 11/07/17 01:48 81 99 3.0 11/07/17 01:47 81 14 99 BiPAP/CPAP 3.0 11/07/17 00:00 Room Air 11/06/17 23:40 36.7 85 18 116/73 (87) 98 CPAP 3.0 11/06/17 23:38 87 97 3.0 11/06/17 22:09 36.7 87 16 116/65 (82) 91 Room Air 11/06/17 21:18 36.7 85 16 114/65 (81) 91 Room Air 11/06/17 20:11 36.5 90 17 138/77 (97) 95 Nasal Cannula 2.0 11/06/17 20:00 Room Air 11/06/17 19:43 36.3 85 16 146/79 (101) 98 Nasal Cannula 2.0 11/06/17 19:18 80 18 98 Nasal Cannula 2.0 11/06/17 19:10 100 Nasal Cannula 2.0 11/06/17 19:10 36.6 81 16 138/76 (96) 100 Nasal Cannula 2.0 11/06/17 18:50 78 16 145/76 93 Nasal Cannula 2 11/06/17 18:40 36.3 79 17 133/75 100 Nasal Cannula 2 11/06/17 18:30 78 16 145/76 100 Nasal Cannula 2 11/06/17 18:25 78 17 141/68 100 Oxymask 10 11/06/17 18:15 79 17 142/97 100 Oxymask 10 11/06/17 18:05 80 21 149/75 100 Oxymask 10 11/06/17 17:59 36.2 75 18 148/74 100 Oxymask 10 Physical Exam Comments: General: patient resting comfortably in bed, NAD, AA&O x 4, Parkinsonian movement, +chorea Skin: warm, dry, intact, scattered ecchymoses on forearms HEENT: NC/AT, PERRL, EOMI, anicteric sclera, conjunctiva without injection, nares patent, dry mucus membranes, no oropharyngeal lesions, poor dentition, neck supple, trachea midline, no thyromegaly, no LAD Heart: +S1/S2, irregularly irregular, no m/r/g Lungs: equal air entry bilaterally, no rales/rhonchi/wheezes Abdomen: soft, NT/ND, no masses/organomegaly/ascites, +MIDLINE TENDERNESS WITH PERCUSSION OF LUMBAR SPINE, +SOFT TISSUE FULLNESS Extremities: warm, well perfused, no clubbing/cyanosis or edema, 2+ palpable pulses in UE/LE bilaterally Neuro: CN II-XII grossly intact, MS 5/5 in UE/LE bilaterally, sensation intact , no deficits noted Laboratory Results Last 24 Hours Test 11/06/17 11:56 11/06/17 14:53 11/06/17 18:13 11/06/17 20:55 Bedside Glucose 99 mg/dl 106 mg/dl 112 mg/dl 183 mg/dl Test 11/07/17 06:15 White Blood Count 13.50 K/uL Red Blood Count 3.45 M/uL Hemoglobin 10.2 g/dL Hematocrit 33.0 % Mean Corpuscular Volume 95.7 fL Mean Corpuscular Hemoglobin 29.6 pg Mean Corpuscular Hemoglobin Concent 30.9 g/dl Platelet Count 199 K/uL Mean Platelet Volume 10.1 fL Neutrophils (%) (Auto) 87.7 % Lymphocytes (%) (Auto) 5.3 % Monocytes (%) (Auto) 6.1 % Eosinophils (%) (Auto) 0.1 % Basophils (%) (Auto) 0.1 % Neutrophils # (Auto) 11.84 K/uL Lymphocytes # (Auto) 0.71 K/uL Monocytes # (Auto) 0.83 K/uL Eosinophils # (Auto) 0.01 K/uL Basophils # (Auto) 0.02 K/uL RDW Standard Deviation 54.8 fL RDW Coefficient of Variation 15.7 % Immature Granulocyte % (Auto) 0.7 % Immature Granulocyte # (Auto) 0.09 K/uL Sodium Level 140 mmol/L Potassium Level 4.0 mmol/L Chloride Level 105 mmol/L Carbon Dioxide Level 28 mmol/L Anion Gap 7.0 mmol/L Blood Urea Nitrogen 17 mg/dl Creatinine 1.31 mg/dl Est Creatinine Clear Calc Drug Dose 61.6 ml/min Estimated GFR () 64.4 Estimated GFR (Non- 55.5 BUN/Creatinine Ratio 12.7 Random Glucose 122 mg/dl Calcium Level 8.4 mg/dl Assessment and Plan 66yo male with multiple medical problems presenting with 1 month of progressive LBP, outpatient MRI with concerns for progressive discitis/osteomyelitis at L4- L5 as well as phlegmon at L4-S1. L4-L5 with mild displacement of the thecal sac to the left with severe central canal narrowing. Enhancement of soft tissues at the laminectomy site concerning for infectious change. 1. Back pain with Osteomyelitis/Phlegmon vs abscess - patient afebrile, hemodynamically stable. Non-septic in appearance. Leukocytosis with WBC=13.31 , Lactate WNL. Elevate ESR and CRP CT Lumbar spine: Moderate paravertebral edema at the L4-S1 level, as shown on MRI of November 03, 2017. This favors an infectious process which extends into the right psoas muscle. -Blood cultures pending -Preliminary results are negative -Cefepime 2gm IV q 4 -Daptomycin 6mg/kg daily -Appreciate ID recommendations: agree with antibiotic selection -Due to pain not being controlled, will switch to [employer] pump Dilaudid -Zofran PRN nausea -Continue Flexeril, Cymbalta for pain control -Consultation with Dr. Wheeler from Orthopedics - appreciate assistance with this case -Hold statin while on Daptomycin -Patient will be NPO after midnight for removal of hardware. 2. Acute kidney Injury: Likely prerenal. Will trend creatinine. May be also due to dapto. 3. Parkinson's Disease - stable, chronic -Continue Sinemet 25/100 1 tab QID and CR 50/200 1 tab BID. -Appears to be stable. -Patient continues to have chorea and tremors. 4. COPD - stable, no respiratory distress, adequate oxygenation and ventilation on room air -Continue Xopenex PRN -Continue Advair -Continue Spiriva -Smoking cessation counseling 5. AF - patient presently rate controlled. Not on anticoagulation -Continue Amiodarone -Continue to monitor 6. Hypertension -patient presently mildly hypertensive -Continue Amlodipine, Hydralazine and Metoprolol 7. CAD s/p NE, s/p CABG - stable, no CP -Continue Metoprolol, ASA -No new findings on EKG except for PVCs. -Holding statin as above 8. LES - stable -CPAP qHS 9. DM - blood sugar presently 88. No report of diabetic medication on medication reconciliation -Will cover with ISS -BS checks 10. BPH - stable, chronic -Continue Flomax 11. F/E/N - monitor electrolytes and replete as needed. AHA/DM diet as tolerated. Continue bowel regimen to include TID Colace, Miralax and Amitiza. Continue Vitamin D3 11. Ppx - Lovenox and Protonix 12. Code - full per discussion with patient Continued [facility] stay due to: other (getting surgery today.) Discharge planning: uncertain
[2017-11-07] MEDS: CEFEPIME IV 2,000 MG in SYRINGE 7.5 ML IV SCH ×2 (08:37→19:57)
[2017-11-07] MEDS: FLUTICASONE/SALMETEROL 250/50 (ADVAIR) 14 PUFF/1 INHALER INH SCH ×2 (08:37→20:46)
[2017-11-07] MEDS: TIOTROPIUM BROMIDE 5 PUFF/90 MCG INH INH SCH (08:38)
[2017-11-07] MEDS: CARBIDOPA/LEVODOPA 25/100MG TAB PO SCH ×4 (08:39→20:44)
[2017-11-07] MEDS: LUBIPROSTONE 8 MCG CAP PO SCH ×3 (08:39→20:44)
[2017-11-07] MEDS: AMLODIPINE BESYLATE 5 MG TAB PO SCH (08:40)
[2017-11-07] MEDS: AMIODARONE 200 MG TAB PO SCH (08:40)
[2017-11-07] MEDS: ASPIRIN 81 MG ECTAB PO SCH (08:40)
[2017-11-07] MEDS: PANTOprazole SOD 40 MG TAB PO SCH (08:40)
[2017-11-07] MEDS: DULOXETINE HCL 60 MG CAP PO SCH (08:40)
[2017-11-07] MEDS: CARBIDOPA/LEVODOPA 50/200MG EXT REL TAB PO SCH ×3 (08:40→20:42)
[2017-11-07] MEDS: DOCUSATE SODIUM 100 MG CAP PO SCH ×3 (08:40→20:41)
[2017-11-07] MEDS: MULTIVITAMIN TAB PO SCH (08:40)
[2017-11-07] MEDS: CHOLECALCIFEROL 1000 INTER.UNIT TAB PO SCH (08:42)
[2017-11-07] MEDS: INSULIN ASPART 100 UNITS/ML 3 ML PEN SC SCH ×4 (08:48→20:47)
--- NOTE | 2017-11-07 09:58 | Progress Note ---
Subjective Date of Service: Nov 07, 2017. Subjective Patient reports he has some pain in his lower back but it is controlled. Patient states that he does not use the [employer] pump as often today. Problem List Medical Problems: (1) Altered mental status Status: Acute (2) Altered mental status Status: Acute (3) Congestive heart failure Status: Acute (4) Cough Status: Acute (5) Dyskinesia due to Parkinson's disease Status: Acute (6) Encounter for smoking cessation counseling Status: Acute (7) Epidural abscess Status: Acute (8) Generalized weakness Status: Acute (9) Intractable pain Status: Acute (10) Leukocytosis Status: Acute (11) Leukocytosis Status: Acute (12) Low back pain Status: Acute (13) Lumbar disc disease Status: Acute (14) Need for intravenous access Status: Acute (15) New onset of congestive heart failure Status: Acute (16) New onset seizure Status: Acute (17) Parkinson's disease Status: Acute (18) Parkinson's disease (tremor, stiffness, slow motion, unstableposture) Status: Acute (19) Post op infection Status: Acute (20) Right hip pain Status: Acute (21) Sciatica Status: Acute (22) Sciatica Status: Acute (23) Sepsis Status: Acute (24) Shaking Status: Acute (25) Shortness of breath Status: Acute (26) Substernal chest pain Status: Acute Review of Systems Constitutional: No fever, No chills Eyes: No worsening of vision ENT: No hearing loss Respiratory: No cough Cardiac: No chest pain Abdomen: No pain MSK: Low back pain Neurologic: No memory loss, +tremos Psychiatric: No depression symptoms Heme: No abnormal bleeding/bruising Endo: No fatigue Skin: No rash All Other Systems: Reviewed and Negative Objective Vital Signs Date Time Temp Pulse Resp B/P (MAP) Pulse Ox O2 Delivery O2 Flow Rate FiO2 11/07/17 07:20 36.4 84 18 114/61 (78) 93 Room Air 11/07/17 06:54 84 14 93 Room Air 11/07/17 01:48 81 99 3.0 11/07/17 01:47 81 14 99 BiPAP/CPAP 3.0 11/07/17 00:00 Room Air 11/06/17 23:40 36.7 85 18 116/73 (87) 98 CPAP 3.0 11/06/17 23:38 87 97 3.0 11/06/17 22:09 36.7 87 16 116/65 (82) 91 Room Air 11/06/17 21:18 36.7 85 16 114/65 (81) 91 Room Air 11/06/17 20:11 36.5 90 17 138/77 (97) 95 Nasal Cannula 2.0 11/06/17 20:00 Room Air 11/06/17 19:43 36.3 85 16 146/79 (101) 98 Nasal Cannula 2.0 11/06/17 19:18 80 18 98 Nasal Cannula 2.0 11/06/17 19:10 100 Nasal Cannula 2.0 11/06/17 19:10 36.6 81 16 138/76 (96) 100 Nasal Cannula 2.0 11/06/17 18:50 78 16 145/76 93 Nasal Cannula 2 11/06/17 18:40 36.3 79 17 133/75 100 Nasal Cannula 2 11/06/17 18:30 78 16 145/76 100 Nasal Cannula 2 11/06/17 18:25 78 17 141/68 100 Oxymask 10 11/06/17 18:15 79 17 142/97 100 Oxymask 10 11/06/17 18:05 80 21 149/75 100 Oxymask 10 11/06/17 17:59 36.2 75 18 148/74 100 Oxymask 10 Physical Exam Comments: General: patient resting comfortably in bed, NAD, AA&O x 4, Parkinsonian movement, +chorea Skin: warm, dry, intact, scattered ecchymoses on forearms HEENT: NC/AT, PERRL, EOMI, anicteric sclera, conjunctiva without injection, nares patent, dry mucus membranes, no oropharyngeal lesions, poor dentition, neck supple, trachea midline, no thyromegaly, no LAD Heart: +S1/S2, irregularly irregular, no m/r/g Lungs: equal air entry bilaterally, no rales/rhonchi/wheezes Abdomen: soft, NT/ND, no masses/organomegaly/ascites, Extremities: warm, well perfused, no clubbing/cyanosis or edema, 2+ palpable pulses in UE/LE bilaterally Neuro: CN II-XII grossly intact, MS 5/5 in UE/LE bilaterally, sensation intact , no deficits noted Laboratory Results Last 24 Hours Test 11/06/17 11:56 11/06/17 14:53 11/06/17 18:13 11/06/17 20:55 Bedside Glucose 99 mg/dl 106 mg/dl 112 mg/dl 183 mg/dl Test 11/07/17 06:15 11/07/17 08:04 White Blood Count 13.50 K/uL Red Blood Count 3.45 M/uL Hemoglobin 10.2 g/dL Hematocrit 33.0 % Mean Corpuscular Volume 95.7 fL Mean Corpuscular Hemoglobin 29.6 pg Mean Corpuscular Hemoglobin Concent 30.9 g/dl Platelet Count 199 K/uL Mean Platelet Volume 10.1 fL Neutrophils (%) (Auto) 87.7 % Lymphocytes (%) (Auto) 5.3 % Monocytes (%) (Auto) 6.1 % Eosinophils (%) (Auto) 0.1 % Basophils (%) (Auto) 0.1 % Neutrophils # (Auto) 11.84 K/uL Lymphocytes # (Auto) 0.71 K/uL Monocytes # (Auto) 0.83 K/uL Eosinophils # (Auto) 0.01 K/uL Basophils # (Auto) 0.02 K/uL RDW Standard Deviation 54.8 fL RDW Coefficient of Variation 15.7 % Immature Granulocyte % (Auto) 0.7 % Immature Granulocyte # (Auto) 0.09 K/uL Sodium Level 140 mmol/L Potassium Level 4.0 mmol/L Chloride Level 105 mmol/L Carbon Dioxide Level 28 mmol/L Anion Gap 7.0 mmol/L Blood Urea Nitrogen 17 mg/dl Creatinine 1.31 mg/dl Est Creatinine Clear Calc Drug Dose 61.6 ml/min Estimated GFR () 64.4 Estimated GFR (Non- 55.5 BUN/Creatinine Ratio 12.7 Random Glucose 122 mg/dl Calcium Level 8.4 mg/dl Bedside Glucose 155 mg/dl Assessment and Plan 66yo male with multiple medical problems presenting with 1 month of progressive LBP, outpatient MRI with concerns for progressive discitis/osteomyelitis at L4- L5 as well as phlegmon at L4-S1. L4-L5 with mild displacement of the thecal sac to the left with severe central canal narrowing. Enhancement of soft tissues at the laminectomy site concerning for infectious change. 1. Back pain with Osteomyelitis/Phlegmon vs abscess - patient afebrile, hemodynamically stable. Non-septic in appearance. Leukocytosis with WBC=13.31 , Lactate WNL. Elevate ESR and CRP CT Lumbar spine: Moderate paravertebral edema at the L4-S1 level, as shown on MRI of November 03, 2017. This favors an infectious process which extends into the right psoas muscle. S/P removal of hardware and I and D -Wound culture pending. -Blood cultures pending -Preliminary results are negative -Cefepime 2gm IV q 4 -Daptomycin 6mg/kg daily -Appreciate ID recommendations: agree with antibiotic selection -Due to pain not being controlled, will switch to [employer] pump Dilaudid -Zofran PRN nausea -Continue Flexeril, Cymbalta for pain control -Consultation with Dr. Wheeler from Orthopedics - appreciate assistance with this case -Hold statin while on Daptomycin -Will require PICC line for prolong antibiotic use. 2. Acute kidney Injuryc(resolved): Likely prerenal. Will trend creatinine. creatinine improved 3. Parkinson's Disease - stable, chronic -Continue Sinemet 25/100 1 tab QID and CR 50/200 1 tab BID. -Appears to be stable. -Patient continues to have chorea and tremors. 4. COPD - stable, no respiratory distress, adequate oxygenation and ventilation on room air -Continue Xopenex PRN -Continue Advair -Continue Spiriva -Smoking cessation counseling 5. AF - patient presently rate controlled. Not on anticoagulation -Continue Amiodarone -Continue to monitor 6. Hypertension -patient presently mildly hypertensive -Continue Amlodipine, Hydralazine and Metoprolol 7. CAD s/p [place], s/p CABG - stable, no CP -Continue Metoprolol, ASA -No new findings on EKG except for PVCs. -Holding statin as above 8. LES - stable -CPAP qHS 9. DM - blood sugar presently 88. No report of diabetic medication on medication reconciliation -Will cover with ISS -BS checks 10. BPH - stable, chronic -Continue Flomax 11. F/E/N - monitor electrolytes and replete as needed. AHA/DM diet as tolerated. Continue bowel regimen to include TID Colace, Miralax and Amitiza. Continue Vitamin D3 11. Ppx - Lovenox and Protonix 12. Code - full per discussion with patient Continued [facility] stay due to: other (getting surgery today.) Discharge planning: uncertain
--- NOTE | 2017-11-07 10:20 | Progress Note ---
Progress Note Date of Service Nov 07, 2017. Progress Note Patient's back pain is controlled he states it somewhat improved. He denies any leg pain. Vital signs are stable. Cultures pending. On exam he is in a chair at the bedside is reasonable strength testing. Assessment status post I& D removal of hardware lumbar spine. Plan at this time he may continue with activity as tolerated and will wait for cultures.
[2017-11-07] MEDS: SODIUM CHLORIDE 0.9% 1000ML 1,000 ML IV SCH ×2 (12:16→19:58)
[2017-11-07] MEDS: DAPTOmycin IV 450 MG in SYRINGE 0 ML IV SCH (17:41)
[2017-11-07] MEDS: METOPROLOL SUCC 50MG EXT REL TAB PO SCH (20:42)
[2017-11-07] MEDS: TAMSULOSIN HCL 0.4 MG CAP PO SCH (20:43)
[2017-11-07] MEDS: CARBOHYDRATES FOR HYPOGLYCEMIA PO PRN (20:48)
[2017-11-08] VITALS (13 sets, daily range): BP systolic 115–165; BP diastolic 60–79; PULSE 73–89; TEMP 36.4–36.9; O2SAT 91–95
[2017-11-08] MEDS: LEVALBUTEROL 1.25MG/3ML NEB INH SCH ×4 (02:22→19:48)
[2017-11-08] MEDS: ENOXAPARIN 40 MG/0.4 ML SYR SQ SCH (05:53)
[2017-11-08] MEDS ORDERED: BISACODYL 5 MG TABEC PO PRN (06:00)
[2017-11-08] MEDS ORDERED: BISACODYL 10 MG SUPP PR PRN (06:00)
[2017-11-08] MEDS: HYDROmorphone HCL 0.5MG/ML 50 ML CASSETTE IV PRN ×3 (07:13→23:04)
--- NOTE | 2017-11-08 07:23 | Orthopedic Progress Note ---
Orthopedic Progress Note Date of Service Nov 08, 2017. Subjective Post OP Day: 2 Additional Notes: Patient's postoperative day 2 I&D lumbar spine with hardware removal. A CPAP on this morning. He reports back pain is improved. No radicular leg pain. He is only been up and walking a little bit. Both blood cultures are no growth to date as well as intraoperative cultures no growth to date. He is currently on daptomycin and cefepime. He is on Lovenox for DVT prophylaxis. Objective He is lying in bed. In no obvious distress. Lower extremities are neurovascular intact. Calf soft nontender. Date Time Temp Pulse Resp B/P (MAP) Pulse Ox O2 Delivery O2 Flow Rate FiO2 11/08/17 07:03 75 16 94 BiPAP/CPAP 11/08/17 07:02 75 94 11/08/17 03:30 36.4 77 18 149/79 (102) 93 CPAP 11/08/17 02:22 82 16 92 BiPAP/CPAP 11/08/17 02:22 82 92 11/08/17 00:00 Room Air CPAP 11/07/17 23:19 87 93 11/07/17 23:00 36.4 87 18 148/66 (93) 95 Room Air 11/07/17 19:33 86 16 97 Room Air 11/07/17 19:03 36.9 88 16 125/64 (84) 92 Room Air 11/07/17 15:30 95 11/07/17 15:22 36.9 90 18 111/50 (70) 90 Room Air 11/07/17 15:15 Room Air 11/07/17 14:26 88 14 90 Room Air 11/07/17 14:04 103/50 (67) 11/07/17 13:31 149/75 (99) 11/07/17 12:15 37.3 87 22 96 Room Air 11/07/17 08:28 Room Air CPAP Assessment & Plan Assessment: Postoperative day 2 I&D lumbar spine with hardware removal and stimulant beads placed. Plan: Silver cultures are no growth to date. Antibiotics are per Dr. Owusu's recommendations. DVT prophylaxis currently Lovenox. Continue with pain control. Patient is currently refusing any type of rehab. It will therefore try and arrange IV antibiotics with home health.
[2017-11-08] MEDS: FLUTICASONE/SALMETEROL 250/50 (ADVAIR) 14 PUFF/1 INHALER INH SCH ×2 (08:41→20:58)
[2017-11-08] MEDS: TIOTROPIUM BROMIDE 5 PUFF/90 MCG INH INH SCH (08:41)
[2017-11-08] MEDS: DOCUSATE SODIUM 100 MG CAP PO SCH ×3 (08:44→21:00)
[2017-11-08] MEDS: AMLODIPINE BESYLATE 5 MG TAB PO SCH (08:44)
[2017-11-08] MEDS: ASPIRIN 81 MG ECTAB PO SCH (08:44)
[2017-11-08] MEDS: DULOXETINE HCL 60 MG CAP PO SCH (08:45)
[2017-11-08] MEDS: MULTIVITAMIN TAB PO SCH (08:45)
[2017-11-08] MEDS: PANTOprazole SOD 40 MG TAB PO SCH (08:45)
[2017-11-08] MEDS: LUBIPROSTONE 8 MCG CAP PO SCH ×3 (08:45→21:01)
[2017-11-08] MEDS: CARBIDOPA/LEVODOPA 25/100MG TAB PO SCH ×4 (08:45→20:59)
[2017-11-08] MEDS: CARBIDOPA/LEVODOPA 50/200MG EXT REL TAB PO SCH ×2 (08:45→20:59)
[2017-11-08] MEDS: CHOLECALCIFEROL 1000 INTER.UNIT TAB PO SCH (08:45)
[2017-11-08] MEDS: AMIODARONE 200 MG TAB PO SCH (08:46)
[2017-11-08] MEDS: INSULIN ASPART 100 UNITS/ML 3 ML PEN SC SCH ×4 (08:51→20:53)
[2017-11-08] MEDS: CEFEPIME IV 2,000 MG in SYRINGE 7.5 ML IV SCH ×2 (08:51→20:58)
--- NOTE | 2017-11-08 16:57 | Progress Note ---
Subjective Date of Service: Nov 08, 2017. Subjective Patient reports pain is controlled, No new complaints. Problem List Medical Problems: (1) Altered mental status Status: Acute (2) Altered mental status Status: Acute (3) Congestive heart failure Status: Acute (4) Cough Status: Acute (5) Dyskinesia due to Parkinson's disease Status: Acute (6) Encounter for smoking cessation counseling Status: Acute (7) Epidural abscess Status: Acute (8) Generalized weakness Status: Acute (9) Intractable pain Status: Acute (10) Leukocytosis Status: Acute (11) Leukocytosis Status: Acute (12) Low back pain Status: Acute (13) Lumbar disc disease Status: Acute (14) Need for intravenous access Status: Acute (15) New onset of congestive heart failure Status: Acute (16) New onset seizure Status: Acute (17) Parkinson's disease Status: Acute (18) Parkinson's disease (tremor, stiffness, slow motion, unstableposture) Status: Acute (19) Post op infection Status: Acute (20) Right hip pain Status: Acute (21) Sciatica Status: Acute (22) Sciatica Status: Acute (23) Sepsis Status: Acute (24) Shaking Status: Acute (25) Shortness of breath Status: Acute (26) Substernal chest pain Status: Acute Review of Systems Constitutional: No fever, No chills Eyes: No worsening of vision ENT: No hearing loss Respiratory: No cough Cardiac: No chest pain Abdomen: No pain MSK: Low back pain Neurologic: No memory loss, +tremos Psychiatric: No depression symptoms Heme: No abnormal bleeding/bruising Endo: No fatigue Skin: No rash All Other Systems: Reviewed and Negative Objective Vital Signs Date Time Temp Pulse Resp B/P (MAP) Pulse Ox O2 Delivery O2 Flow Rate FiO2 11/08/17 15:14 36.4 82 20 115/60 (78) 93 Room Air 11/08/17 14:35 81 16 94 Room Air 11/08/17 11:07 80 94 11/08/17 08:37 Room Air 11/08/17 08:15 36.6 77 18 144/71 (95) 95 Room Air 11/08/17 07:03 75 16 94 BiPAP/CPAP 11/08/17 07:02 75 94 11/08/17 03:30 36.4 77 18 149/79 (102) 93 CPAP 11/08/17 02:22 82 16 92 BiPAP/CPAP 11/08/17 02:22 82 92 11/08/17 00:00 Room Air CPAP 11/07/17 23:19 87 93 11/07/17 23:00 36.4 87 18 148/66 (93) 95 Room Air 11/07/17 19:33 86 16 97 Room Air 11/07/17 19:03 36.9 88 16 125/64 (84) 92 Room Air Physical Exam Comments: General: patient resting comfortably in bed, NAD, AA&O x 4, Parkinsonian movement, +chorea Skin: warm, dry, intact, scattered ecchymoses on forearms HEENT: NC/AT, PERRL, EOMI, anicteric sclera, conjunctiva without injection, nares patent, dry mucus membranes, no oropharyngeal lesions, poor dentition, neck supple, trachea midline, no thyromegaly, no LAD Heart: +S1/S2, irregularly irregular, no m/r/g Lungs: equal air entry bilaterally, no rales/rhonchi/wheezes Abdomen: soft, NT/ND, no masses/organomegaly/ascites, Extremities: warm, well perfused, no clubbing/cyanosis or edema, 2+ palpable pulses in UE/LE bilaterally Neuro: CN II-XII grossly intact, MS 5/5 in UE/LE bilaterally, sensation intact , no deficits noted Laboratory Results Last 24 Hours Test 11/07/17 20:34 11/07/17 20:37 11/07/17 21:03 11/08/17 07:59 Bedside Glucose 56 mg/dl 51 mg/dl 77 mg/dl 93 mg/dl Test 11/08/17 11:57 Bedside Glucose 104 mg/dl Assessment and Plan 66yo male with multiple medical problems presenting with 1 month of progressive LBP, outpatient MRI with concerns for progressive discitis/osteomyelitis at L4- L5 as well as phlegmon at L4-S1. L4-L5 with mild displacement of the thecal sac to the left with severe central canal narrowing. Enhancement of soft tissues at the laminectomy site concerning for infectious change. 1. Back pain with Osteomyelitis/Phlegmon vs abscess - patient afebrile, hemodynamically stable. Non-septic in appearance. Leukocytosis with WBC=13.31 , Lactate WNL. Elevate ESR and CRP CT Lumbar spine: Moderate paravertebral edema at the L4-S1 level, as shown on MRI of November 03, 2017. This favors an infectious process which extends into the right psoas muscle. S/P removal of hardware and I and D (11/06) -Wound culture pending. -Blood cultures pending -Preliminary results are negative -Cefepime 2gm IV q 4 -Daptomycin 6mg/kg daily -Appreciate ID recommendations: agree with antibiotic selection -Pain is now controlled after switching to [employer] pump. -Zofran PRN nausea -Continue Flexeril, Cymbalta for pain control -Consultation with Dr. Wheeler from Orthopedics - appreciate assistance with this case -Hold statin while on Daptomycin -Will require PICC line for prolong antibioitc use. -Obtained consent for PICC. 2. Acute kidney Injuryc(resolved): Likely prerenal. Will trend creatinine. creatinine improved 3. Parkinson's Disease - stable, chronic -Continue Sinemet 25/100 1 tab QID and CR 50/200 1 tab BID. -Appears to be stable. -Patient continues to have chorea and tremors. 4. COPD - stable, no respiratory distress, adequate oxygenation and ventilation on room air -Continue Xopenex PRN -Continue Advair -Continue Spiriva -Smoking cessation counseling 5. AF - patient presently rate controlled. Not on anticoagulation -Continue Amiodarone -Continue to monitor 6. Hypertension -patient presently mildly hypertensive -Continue Amlodipine, Hydralazine and Metoprolol 7. CAD s/p NE, s/p CABG - stable, no CP -Continue Metoprolol, ASA -No new findings on EKG except for PVCs. -Holding statin as above 8. LES - stable -CPAP qHS 9. DM - blood sugar presently 88. No report of diabetic medication on medication reconciliation -Will cover with ISS -BS checks 10. BPH - stable, chronic -Continue Flomax 11. F/E/N - monitor electrolytes and replete as needed. AHA/DM diet as tolerated. Continue bowel regimen to include TID Colace, Miralax and Amitiza. Continue Vitamin D3 11. Ppx - Lovenox and Protonix 12. Code - full per discussion with patient Continued [facility] stay due to: other (getting surgery today.) Discharge planning: uncertain
[2017-11-08] MEDS: DAPTOmycin IV 450 MG in SYRINGE 0 ML IV SCH (18:06)
[2017-11-08] MEDS: SODIUM CHLORIDE 0.9% 1000ML 1,000 ML IV SCH (18:06)
[2017-11-08] MEDS: CYCLOBENZAPRINE HCL 10 MG TAB PO PRN (18:56)
[2017-11-08] MEDS: CARBOHYDRATES FOR HYPOGLYCEMIA PO PRN (20:45)
[2017-11-08] MEDS: TAMSULOSIN HCL 0.4 MG CAP PO SCH (21:01)
[2017-11-08] MEDS: METOPROLOL SUCC 50MG EXT REL TAB PO SCH (21:17)
[2017-11-08] MEDS ORDERED: PHARMACY GLYCEMIC MGMT CONSULT PRN (23:06)
[2017-11-09] VITALS (10 sets, daily range): BP systolic 122–156; BP diastolic 58–84; PULSE 76–83; TEMP 36.5–36.7; O2SAT 92–97
[2017-11-09] MEDS: LEVALBUTEROL 1.25MG/3ML NEB INH SCH ×4 (02:18→20:24)
[2017-11-09] MEDS: ENOXAPARIN 40 MG/0.4 ML SYR SQ SCH (05:41)
[2017-11-09 07:07] LABS: HEMATOCRIT 28.6 % (42-52); HEMOGLOBIN 9.3 g/dL (14.0-18.0); MEAN CELL VOLUME 95.7 fL (80-100); MEAN CORPUSCULAR HEMOGLOBIN 31.1 pg (25-34); MEAN CORPUSCULAR HGB CONC 32.5 g/dl (32-36); MEAN PLATELET VOLUME 10.5 fL (7.4-10.4); PLATELET COUNT 218 K/uL (130-400); RED CELL DISTRIBUTION WIDTH CV 15.9 % (11.5-14.5); RED CELL DISTRIBUTION WIDTH SD 55.3 fL (36.4-46.3); WHITE BLOOD COUNT 11.48 K/uL (4.8-10.8)
[2017-11-09] MEDS: HYDROmorphone HCL 0.5MG/ML 50 ML CASSETTE IV PRN ×3 (07:07→23:01)
[2017-11-09 07:28] LABS: CREATININE 1.31 mg/dl (0.60-1.40)
--- NOTE | 2017-11-09 07:32 | Pharmacy Progress Note ---
Pharmacy Glycemic Sign Off Nt Date of Service Nov 09, 2017. Assessment & Plan ASSESSMENT: * Pharmacy was consulted by Dr Churchill on 11/08/17 for glycemic control and to write orders per [facility] inpatient glycemic control protocol. * Major changes made by pharmacy to antidiabetic regimen include: * N/A, pt is not a diabetic as HbA1c is normal * Pt with moderate hyperglycemia on 11/06/17 after receiving a dose of Dexamethasone * Pt ordered NovoLog per scale with CF/CR --> this caused repeated lows 11/07 & 11/08 because pt does not require CR for non-diabetic * Pharmacy d/c CR and loosened CF scale because pt likely does not need any insulin anymore PLAN FOR INPATIENT GLYCEMIC CONTROL: Stop carb ratio. Loosen correction factor. Pt likely does not need insulin. * NovoLog per scale ACHS/Q6hrs while NPO * Goal range = 120 - 160 mg/dl * CF = 50 mg/dl/unit * CR = 1 unit for ever -- g CHO consumed * Pharmacy is signing off of glycemic consult and will no longer be making adjustments to inpatient regimen. Please feel free to re-consult if needed. Thank you. DISCHARGE RECOMMENDATIONS: * A1c 5.3 % on 09/21/17 * Pt is not a diabetic. * No changes needed at D/C
[2017-11-09] MEDS: INSULIN ASPART 100 UNITS/ML 3 ML PEN SC SCH ×4 (08:00→20:54)
--- NOTE | 2017-11-09 08:01 | Anesthesiology Progress Note ---
Anesthesia Post Op Note Date & Time Nov 09, 2017 at 08:00 Vital Signs Pain Intensity: 0.0 Vital Signs Past 12 Hours Date Time Temp Pulse Resp B/P (MAP) Pulse Ox O2 Delivery O2 Flow Rate FiO2 11/09/17 07:15 81 16 95 Room Air 11/09/17 03:10 36.6 83 16 122/58 (79) 92 BiPAP 11/09/17 02:19 83 16 94 BiPAP/CPAP 21 11/09/17 02:19 83 93 21 11/08/17 23:50 Room Air CPAP 11/08/17 23:50 36.9 87 16 123/61 (81) 91 BiPAP 11/08/17 23:38 89 93 21 11/08/17 21:15 86 165/69 (101) Notes Mental Status: alert / awake / arousable, participated in evaluation Pt Amnestic to Procedure: Yes Nausea / Vomiting: adequately controlled Pain: adequately controlled Airway Patency, RR, SpO2: stable & adequate BP & HR: stable & adequate Hydration State: stable & adequate Anesthetic Complications: no major complications apparent
[2017-11-09] MEDS: CEFEPIME IV 2,000 MG in SYRINGE 7.5 ML IV SCH (08:04)
[2017-11-09] MEDS: FLUTICASONE/SALMETEROL 250/50 (ADVAIR) 14 PUFF/1 INHALER INH SCH ×2 (08:04→20:53)
[2017-11-09] MEDS: TIOTROPIUM BROMIDE 5 PUFF/90 MCG INH INH SCH (08:05)
[2017-11-09] MEDS: CARBIDOPA/LEVODOPA 50/200MG EXT REL TAB PO SCH ×2 (08:06→20:53)
[2017-11-09] MEDS: DULOXETINE HCL 60 MG CAP PO SCH (08:06)
[2017-11-09] MEDS: CHOLECALCIFEROL 1000 INTER.UNIT TAB PO SCH (08:06)
[2017-11-09] MEDS: AMLODIPINE BESYLATE 5 MG TAB PO SCH (08:06)
[2017-11-09] MEDS: PANTOprazole SOD 40 MG TAB PO SCH (08:06)
[2017-11-09] MEDS: MULTIVITAMIN TAB PO SCH (08:06)
[2017-11-09] MEDS: DOCUSATE SODIUM 100 MG CAP PO SCH ×3 (08:07→20:53)
[2017-11-09] MEDS: LUBIPROSTONE 8 MCG CAP PO SCH ×3 (08:07→20:53)
[2017-11-09] MEDS: AMIODARONE 200 MG TAB PO SCH (08:07)
[2017-11-09] MEDS: ASPIRIN 81 MG ECTAB PO SCH (08:07)
[2017-11-09] MEDS: CARBIDOPA/LEVODOPA 25/100MG TAB PO SCH ×4 (08:08→20:53)
[2017-11-09] MEDS: POLYETHYLENE (MIRALAX) 17 GM PACK PO SCH (08:15)
--- NOTE | 2017-11-09 14:52 | Hospitalist Progress Note ---
Hospitalist Progress Note Date of Service Nov 09, 2017. (Peri Hutchins CRNP) Subjective Pt evaluation today including: conversation w/ patient, physical exam, chart review, lab review, review of inpatient medication list Voiding: no voiding problems Mr. Damon has some pain at incision site but is otherwise without complaints. He had a PICC placed today. ROS Constitutional: no chills, aches, sweats or fever Respiratory: no sob,cough, sputum, or wheezing Cardiac: no chest pain, palpitations, edema, orthopnea or lightheadedness GI: no abdominal pain, nausea, vomiting, diarrhea or constipation : no dysuria or hesitancy Extremities: no joint pain or weakness Skin: no rash All other systems reviewed and negative (Peri Hutchins CRNP) Medications Medications Administered Medications (Trade) Dose Ordered Sig/Igor Route Start Time Stop Time Status Last Admin Dose Admin Cefepime HCl 2000 mg/Dextrose 122 ml @ 200 mls/hr NOW STAT IV 11/03/17 17:42 11/03/17 18:18 DC 11/03/17 18:40 200 MLS/HR Daptomycin 540 mg/ Sodium Chloride 60.8 ml @ 100 mls/hr ONE STAT IV 11/03/17 17:42 11/03/17 18:18 DC 11/03/17 18:40 100 MLS/HR Sodium Chloride 1,000 ml @ 999 mls/hr Q1H1M STAT IV 11/03/17 17:42 11/03/17 18:42 DC 11/03/17 18:24 999 MLS/HR Amiodarone HCl (Cordarone Tab) 200 mg DAILY PO 11/04/17 09:00 12/04/17 08:59 11/09/17 08:07 200 MG Amlodipine Besylate (Norvasc Tab) 10 mg DAILY PO 11/04/17 09:00 12/04/17 08:59 11/09/17 08:06 10 MG Aspirin (Ecotrin Tab) 81 mg DAILY PO 11/04/17 09:00 12/04/17 08:59 11/09/17 08:07 81 MG Carbidopa/Levodopa (Sinemet Cr 50/ 200MG Tab) 1 tab BID PO 11/04/17 09:00 12/04/17 08:59 11/09/17 08:06 1 TAB Cyclobenzaprine HCl (Flexeril Tab) 10 mg TID PRN PO 11/03/17 21:15 12/03/17 21:14 11/08/17 18:56 10 MG Docusate Sodium (coLACE CAP) 100 mg TID PO 11/04/17 09:00 12/04/17 08:59 11/09/17 13:03 100 MG Duloxetine HCl (Cymbalta Cap) 60 mg DAILY PO 11/04/17 09:00 12/04/17 08:59 11/09/17 08:06 60 MG Salmeterol Xinafoate/ Fluticasone (Advair Diskus 250/50 Inh) 1 puff Q12 INH 11/04/17 09:00 12/04/17 08:59 11/09/17 08:04 1 PUFF Hydralazine HCl (Apresoline Tab) 100 mg TID PO 11/04/17 09:00 12/04/17 08:59 11/09/17 13:02 100 MG Levalbuterol (Xopenex 1.25MG/ 3ML Neb) 1.25 mg Q6R INH 11/04/17 03:00 12/04/17 02:59 11/09/17 07:15 1.25 MG Metoprolol Succinate (Toprol Xl Tab) 75 mg HS PO 11/04/17 21:00 12/04/17 20:59 11/08/17 21:17 75 MG Multivitamins (Multivitamin Tab) 1 tab DAILY PO 11/04/17 09:00 12/04/17 08:59 11/09/17 08:06 1 TAB Simvastatin (Zocor Tab) 40 mg QPM PO 11/04/17 21:00 11/04/17 21:00 DC 11/03/17 23:14 40 MG Tamsulosin HCl (Flomax Cap) 0.4 mg HS PO 11/04/17 21:00 12/04/17 20:59 11/08/17 21:01 0.4 MG Tiotropium [place] (Spiriva Handihaler Inhaler) 1 puff DAILY INH 11/04/17 09:00 12/04/17 08:59 11/09/17 08:05 1 PUFF Cholecalciferol (Vitamin D Tab) 2,000 inter.unit DAILY PO 11/04/17 09:00 8/17/18 08:59 11/09/17 08:06 2,000 INTER.UNIT Lubiprostone (Amitiza) 8 mcg TID PO 11/04/17 09:00 12/04/17 08:59 11/09/17 13:02 8 MCG Pantoprazole Sodium (Protonix Tab) 40 mg DAILY PO 11/04/17 09:00 12/04/17 08:59 11/09/17 08:06 40 MG Polyethylene (Miralax Powder Packet) 17 gm DAILY PO 11/04/17 09:00 11/06/17 18:05 DC 11/05/17 09:28 17 GM Sodium Chloride 1,000 ml @ 80 mls/hr [id number] IV 11/03/17 21:15 11/04/17 22:15 DC 11/04/17 11:42 80 MLS/HR Morphine Sulfate (MoRPHine SULFATE INJ) 2 mg Q4 PRN IV 11/03/17 21:15 11/17/17 21:14 11/04/17 15:52 2 MG Cefepime HCl 2000 mg/Syringe 20 ml @ 5 mls/min Q12H IV 11/04/17 04:00 12/16/17 03:59 11/09/17 08:04 5 MLS/MIN Daptomycin 450 mg/ Syringe 9 ml @ 4.5 mls/min Q24H IV 11/04/17 18:00 12/15/17 17:59 11/08/17 18:06 4.5 MLS/MIN Enoxaparin Sodium (Lovenox Inj) 40 mg Q24H SQ 11/04/17 06:00 12/04/17 05:59 11/09/17 05:41 40 MG Acetaminophen (Tylenol Tab) 650 mg Q4H PRN PO 11/03/17 21:15 11/06/17 18:01 DC 11/05/17 21:25 650 MG Ondansetron HCl (Zofran Inj) 4 mg Q6H PRN IV 11/03/17 21:15 12/03/17 21:14 11/05/17 21:00 4 MG Insulin Aspart (novoLOG ASPART) SLIDING SCALE If C... ACHS [place] 11/04/17 07:00 11/06/17 02:35 DC 11/05/17 13:16 2 UNITS Carbohydrates (Carbohydrates For Hypoglycemia) 15-30 GRAMS 15 grams if BSG 54-69... UD PRN PO 11/03/17 21:15 12/03/17 21:14 11/08/17 20:45 15 GM Carbidopa/Levodopa (Sinemet 25/ 100MG Tab) 1 tab QID PO 11/04/17 09:00 12/04/17 08:59 11/09/17 13:03 1 TAB Hydromorphone HCl (Dilaudid Inj) @ Q4 PRN IV 11/04/17 13:15 11/04/17 21:57 DC 11/04/17 18:21 2 MG Hydromorphone HCl (Dilaudid Assembly Machine Tool Setter) 25 mg PRN PRN IV 11/04/17 19:00 11/18/17 18:59 11/09/17 07:07 25 MG Sodium Chloride 1,000 ml @ 15 mls/hr Q24H IV 11/04/17 18:55 12/04/17 18:54 11/08/17 18:06 15 MLS/HR Sodium Chloride 1,000 ml @ 100 mls/hr Q10H IV 11/06/17 00:00 11/06/17 18:01 DC 11/06/17 10:12 100 MLS/HR Acetaminophen 650 mg/Empty Bag 65 ml @ 260 mls/hr Q6H PRN IV 11/06/17 07:00 12/06/17 06:59 11/06/17 10:12 260 MLS/HR Bupivacaine HCl/ Epinephrine Bitart (Sensorcaine/ Epinephrine 0.5% Mpf 1:200,000) 30 ml STK-MED ONCE .ROUTE 11/06/17 16:25 11/06/17 16:26 DC 11/06/17 17:35 25 ML Bacitracin (Bacitracin Inj) 50,000 units STK-MED ONCE .ROUTE 11/06/17 16:25 11/06/17 16:26 DC 11/06/17 17:34 50,000 UNITS Gentamicin Sulfate (Gentamicin Sulfate Inj) 240 mg STK-MED ONCE .ROUTE 11/06/17 16:26 11/06/17 16:27 DC 11/06/17 17:35 240 MG Vancomycin HCl (Vancomycin Iv) 50 mg STK-MED ONCE .ROUTE 11/06/17 16:26 11/06/17 16:27 DC 11/06/17 17:35 50 MG Miscellaneous (Floseal Hemostatic Matrix 5ml) 5 ml ONE ONCE TOP 11/06/17 17:35 11/06/17 17:36 DC 11/06/17 17:36 5 ML Sodium Chloride 1,000 ml @ 80 mls/hr [id number] IV 11/06/17 17:39 11/07/17 17:38 DC 11/07/17 12:16 80 MLS/HR Insulin Aspart (novoLOG ASPART) SLIDING SCALE If C... ACHS SC 11/06/17 19:00 12/06/17 18:59 11/08/17 18:10 4 UNITS (Peri Hutchins CRNP) Objective Vital Signs Date Time Temp Pulse Resp B/P (MAP) Pulse Ox O2 Delivery O2 Flow Rate FiO2 11/09/17 10:52 36.5 78 18 133/65 (87) 94 Room Air 11/09/17 07:56 Room Air CPAP 11/09/17 07:45 36.5 80 16 146/65 (92) 94 Room Air 11/09/17 07:15 81 16 95 Room Air 11/09/17 03:10 36.6 83 16 122/58 (79) 92 BiPAP 11/09/17 02:19 83 16 94 BiPAP/CPAP 21 11/09/17 02:19 83 93 21 11/08/17 23:50 Room Air CPAP 11/08/17 23:50 36.9 87 16 123/61 (81) 91 BiPAP 11/08/17 23:38 89 93 21 11/08/17 21:15 86 165/69 (101) 11/08/17 19:50 73 16 93 Room Air 11/08/17 18:29 36.6 88 18 152/73 (99) 94 Room Air 11/08/17 16:00 Room Air 11/08/17 15:14 36.4 82 20 115/60 (78) 93 Room Air (Peri Hutchins CRNP) Physical Exam Notes: General: no distress Eyes: normal inspection, PERLL Respiratory: chest non tender, clear to auscultation, normal breath sounds, no respiratory distress, no accessory muscle use Cardiac: irregular rate and rhythm, no rub or gallop, no murmur, no edema, no jvd GI/: active bowel sounds, no abd pain or tenderness, soft, non distended Extremities: normal range of motion, chorea, tremors Neuro/Psych: alert and oriented x 3, flat affect Skin: normal color, dry (Peri Hutchins CRNP) Laboratory Results Last 24 Hours Test 11/08/17 17:02 11/08/17 20:25 11/08/17 20:27 11/08/17 21:07 Bedside Glucose 101 mg/dl 58 mg/dl 59 mg/dl 78 mg/dl Test 11/09/17 06:16 11/09/17 08:14 11/09/17 12:02 White Blood Count 11.48 K/uL Red Blood Count 2.99 M/uL Hemoglobin 9.3 g/dL Hematocrit 28.6 % Mean Corpuscular Volume 95.7 fL Mean Corpuscular Hemoglobin 31.1 pg Mean Corpuscular Hemoglobin Concent 32.5 g/dl RDW Standard Deviation 55.3 fL RDW Coefficient of Variation 15.9 % Platelet Count 218 K/uL Mean Platelet Volume 10.5 fL Creatinine 1.31 mg/dl Est Creatinine Clear Calc Drug Dose 61.6 ml/min Estimated GFR () 64.4 Estimated GFR (Non- 55.5 Bedside Glucose 109 mg/dl 121 mg/dl (Peri Hutchins CRNP) Assessment and Plan Mr. Damon is a 66yo male with multiple medical problems presenting with 1 month of progressive LBP, outpatient MRI with concerns for progressive discitis/ osteomyelitis at L4-L5 as well as phlegmon at L4-S1. L4-L5 with mild displacement of the thecal sac to the left with severe central canal narrowing. Enhancement of soft tissues at the laminectomy site concerning for infectious change. Back pain with Osteomyelitis/Phlegmon vs abscess - patient afebrile, hemodynamically stable. Non-septic in appearance. CT Lumbar spine: Moderate paravertebral edema at the L4-S1 level, as shown on MRI of November 03, 2017. This favors an infectious process which extends into the right psoas muscle. S/P removal of hardware and I and D (11/06) -Wound cultures with MSSA - per ID - daptomycin x 6 wks, will dc cefepime -Blood cultures ngtd -Pain is now controlled after switching to FRENCH COMBER pump. -Zofran PRN nausea -Continue Flexeril, Cymbalta for pain control -Consultation with Dr. Wheeler from Orthopedics - s/p Removal of posterior instrumentation L4-5. #2 revision decompression L4-5. #3 expiration of fusion L4-5. #4 placement of stimulant beads on 11/06 -Hold statin while on Daptomycin - PICC in place Acute kidney Injury - resolved Parkinson's Disease - stable, chronic -Continue Sinemet 25/100 1 tab QID and CR 50/200 1 tab BID. -Appears to be stable. -Patient continues to have chorea and tremors. COPD - stable, no respiratory distress, adequate oxygenation and ventilation on room air -Continue Xopenex PRN -Continue Advair -Continue Spiriva -Smoking cessation counseling AF - patient presently rate controlled. Not on anticoagulation -Continue Amiodarone -Continue to monitor Hypertension -Continue Amlodipine, Hydralazine and Metoprolol CAD s/p HI, s/p CABG - stable, no CP -Continue Metoprolol, ASA -No new findings on EKG except for PVCs. -Holding statin as above LES - stable -CPAP qHS DM - No report of diabetic medication on medication reconciliation - hypoglycemic overnight, not on any long acting insulins -Will cover with ISS -continue bsgs ac & hs BPH - stable, chronic -Continue Flomax Ppx - Lovenox and Protonix Code - full per discussion with patient Dispo: may be able to return home tomorrow with IV abx and home health. (Peri Hutchins ., SHELLY) [employer]MER Physician Supervision Note: I discussed with Peri Hutchins [employer] and agree with findings and plan as documented in the note. Any exceptions or clarifications are listed here: None Patient is here with us mellitus with phlegmon formation status post surgical drainage and requirement for PICC line placement for outpatient intravenous antibiotics. The patient is improving slowly PICC line was placed 11/09 Documented By: Jose Alberto Cristina (Jose Alberto Cristina M.D.)
--- NOTE | 2017-11-09 15:05 | Progress Note ---
Progress Note Date of Service Nov 09, 2017. Progress Note Back pain is controlled and overall improved. Some cramping in the right leg but no radicular complaints. Vital signs stable. Exam is in the chair at bedside appears comfortable. Assessment status post I&D lumbar spine. Plan at this time we will change his dressing DC the drain today. He may continue with activity as tolerated.
[2017-11-09] MEDS: DAPTOmycin IV 450 MG in SYRINGE 0 ML IV SCH (18:35)
[2017-11-09] MEDS: TAMSULOSIN HCL 0.4 MG CAP PO SCH (20:53)
[2017-11-09] MEDS: METOPROLOL SUCC 50MG EXT REL TAB PO SCH (20:54)
--- NOTE | 2017-11-09 21:52 | Infectious Disease Progress Nt ---
Progress Note Date of Service Nov 09, 2017. Subjective Pt evaluation today including: conversation w/ patient, physical exam, chart review, lab review, review of studies, conversation w/ bi consultant, review of inpatient medication list Recent events reviewed. Patient much improved, back pain significantly better. Operative cultures growing methicillin sensitive Staph aureus. Remains afebrile. All Other Systems: Reviewed and Negative Medications Current Inpatient Medications Medications (Trade) Dose Ordered Sig/Igor Route Start Time Stop Time Status Last Admin Dose Admin Amiodarone HCl (Cordarone Tab) 200 mg DAILY PO 11/04/17 09:00 12/04/17 08:59 11/09/17 08:07 200 MG Amlodipine Besylate (Norvasc Tab) 10 mg DAILY PO 11/04/17 09:00 12/04/17 08:59 11/09/17 08:06 10 MG Aspirin (Ecotrin Tab) 81 mg DAILY PO 11/04/17 09:00 12/04/17 08:59 11/09/17 08:07 81 MG Carbidopa/Levodopa (Sinemet Cr 50/ 200MG Tab) 1 tab BID PO 11/04/17 09:00 12/04/17 08:59 11/09/17 20:53 1 TAB Cyclobenzaprine HCl (Flexeril Tab) 10 mg TID PRN PO 11/03/17 21:15 12/03/17 21:14 11/08/17 18:56 10 MG Docusate Sodium (coLACE CAP) 100 mg TID PO 11/04/17 09:00 12/04/17 08:59 11/09/17 13:03 100 MG Duloxetine HCl (Cymbalta Cap) 60 mg DAILY PO 11/04/17 09:00 12/04/17 08:59 11/09/17 08:06 60 MG Salmeterol Xinafoate/ Fluticasone (Advair Diskus 250/50 Inh) 1 puff Q12 INH 11/04/17 09:00 12/04/17 08:59 11/09/17 20:53 1 PUFF Hydralazine HCl (Apresoline Tab) 100 mg TID PO 11/04/17 09:00 12/04/17 08:59 11/09/17 20:53 100 MG Levalbuterol (Xopenex 1.25MG/ 3ML Neb) 1.25 mg Q6R INH 11/04/17 03:00 12/04/17 02:59 11/09/17 20:24 1.25 MG Levalbuterol (Xopenex 1.25MG/ 3ML Neb) 1.25 mg Q2H PRN INH 11/03/17 21:15 12/03/17 21:14 Metoprolol Succinate (Toprol Xl Tab) 75 mg HS PO 11/04/17 21:00 12/04/17 20:59 11/09/17 20:54 75 MG Multivitamins (Multivitamin Tab) 1 tab DAILY PO 11/04/17 09:00 12/04/17 08:59 11/09/17 08:06 1 TAB Tamsulosin HCl (Flomax Cap) 0.4 mg HS PO 11/04/17 21:00 12/04/17 20:59 11/09/17 20:53 0.4 MG Tiotropium [place] (Spiriva Handihaler Inhaler) 1 puff DAILY INH 11/04/17 09:00 12/04/17 08:59 11/09/17 08:05 1 PUFF Cholecalciferol (Vitamin D Tab) 2,000 inter.unit DAILY PO 11/04/17 09:00 12/04/17 08:59 11/09/17 08:06 2,000 INTER.UNIT Lubiprostone (Amitiza) 8 mcg TID PO 11/04/17 09:00 12/04/17 08:59 11/09/17 20:53 8 MCG Pantoprazole Sodium (Protonix Tab) 40 mg DAILY PO 11/04/17 09:00 12/04/17 08:59 11/09/17 08:06 40 MG Morphine Sulfate (MoRPHine SULFATE INJ) 2 mg Q4 PRN IV 11/03/17 21:15 11/17/17 21:14 11/04/17 15:52 2 MG Daptomycin 450 mg/ Syringe 9 ml @ 4.5 mls/min Q24H IV 11/04/17 18:00 12/15/17 17:59 11/09/17 18:35 4.5 MLS/MIN Enoxaparin Sodium (Lovenox Inj) 40 mg Q24H SQ 11/04/17 06:00 12/04/17 05:59 11/09/17 05:41 40 MG Ondansetron HCl (Zofran Inj) 4 mg Q6H PRN IV 11/03/17 21:15 12/03/17 21:14 11/05/17 21:00 4 MG Glucose (Glucose 40% Gel) 15-30 GRAMS 15 GRAMS... UD PRN PO 11/03/17 21:15 12/03/17 21:14 Glucose (Glucose Chew Tab) 4-8 Tablets 4 Tabl... UD PRN PO 11/03/17 21:15 12/03/17 21:14 Dextrose (Dextrose 50% 50ML Syringe) 25-50ML 25ML FOR ... UD PRN IV 11/03/17 21:15 12/03/17 21:14 Glucagon (Glucagon Inj) 1 mg UD PRN SQ 11/03/17 21:15 12/03/17 21:14 Carbohydrates (Carbohydrates For Hypoglycemia) 15-30 GRAMS 15 grams if BSG 54-69... UD PRN PO 11/03/17 21:15 12/03/17 21:14 11/08/17 20:45 15 GM Carbidopa/Levodopa (Sinemet 25/ 100MG Tab) 1 tab QID PO 11/04/17 09:00 12/04/17 08:59 11/09/17 20:53 1 TAB Naloxone HCl (Narcan Inj) 0.1 mg Q5M PRN IV 11/04/17 19:00 12/04/17 18:59 Hydromorphone HCl (Dilaudid Oil Burner Mechanic) 25 mg PRN PRN IV 11/04/17 19:00 11/18/17 18:59 11/09/17 15:02 25 MG Sodium Chloride 1,000 ml @ 15 mls/hr Q24H IV 11/04/17 18:55 12/04/17 18:54 11/08/17 18:06 15 MLS/HR Acetaminophen 650 mg/Empty Bag 65 ml @ 260 mls/hr Q6H PRN IV 11/06/17 07:00 12/06/17 06:59 11/06/17 10:12 260 MLS/HR Magnesium Hydroxide (Milk Of Magnesia Susp) 30 ml DAILY PRN PO 11/06/17 17:45 12/06/17 17:44 Acetaminophen (Tylenol Tab) 650 mg Q6H PRN PO 11/06/17 17:45 12/06/17 17:44 Lorazepam (Ativan Tab) 1 mg Q8H PRN PO 11/06/17 17:45 12/06/17 17:44 Lorazepam 1 mg/ Syringe 0.5 ml @ 1 mls/min Q8 PRN IV 11/06/17 17:45 12/06/17 17:44 Pneumococcal Polysaccharide Vaccine 1 ea PRN PRN N/A 11/06/17 17:45 12/06/17 17:44 Influenza Virus Vacc Triv Types A&B 1 ea PRN PRN N/A 11/06/17 17:45 12/06/17 17:44 Polyethylene (Miralax Powder Packet) 17 gm DAILY PO 11/09/17 09:00 12/09/17 08:59 Bisacodyl (Dulcolax Tab) 5 mg DAILY PRN PO 11/08/17 06:00 12/08/17 05:59 Bisacodyl (Dulcolax Supp) 10 mg DAILY PRN AL 11/08/17 06:00 12/08/17 05:59 Insulin Aspart (novoLOG ASPART) SLIDING SCALE If C... ACHS SC 11/06/17 19:00 12/06/17 18:59 11/08/17 18:10 4 UNITS Heparin Sodium (Porcine) (Heparin 10 Unit/ ml 5 ml Flush) 5 ml PRN PRN FLUSH 11/09/17 13:15 12/09/17 13:14 Objective Vital Signs Date Time Temp Pulse Resp B/P (MAP) Pulse Ox O2 Delivery O2 Flow Rate FiO2 11/09/17 20:26 83 18 93 Room Air 11/09/17 19:00 36.7 76 18 133/73 (93) 96 Room Air 11/09/17 15:45 Room Air 11/09/17 15:18 36.6 82 18 156/84 (108) 97 Room Air 11/09/17 14:45 78 14 97 Room Air 11/09/17 10:52 36.5 78 18 133/65 (87) 94 Room Air 11/09/17 07:56 Room Air CPAP 11/09/17 07:45 36.5 80 16 146/65 (92) 94 Room Air 11/09/17 07:15 81 16 95 Room Air 11/09/17 03:10 36.6 83 16 122/58 (79) 92 BiPAP 11/09/17 02:19 83 16 94 BiPAP/CPAP 21 11/09/17 02:19 83 93 21 11/08/17 23:50 Room Air CPAP 11/08/17 23:50 36.9 87 16 123/61 (81) 91 BiPAP 11/08/17 23:38 89 93 21 Physical Exam General Appearance: WD/WN, no apparent distress Eyes: normal inspection, EOMI, sclerae normal ENT: normal ENT inspection, pharynx normal Neck: supple, no adenopathy, thyroid normal, trachea midline Respiratory/Chest: chest non-tender, lungs clear, normal breath sounds, no respiratory distress Cardiovascular: regular rate, rhythm, no gallop, no murmur Abdomen: normal bowel sounds, non tender, soft, no organomegaly Extremities: non-tender, no calf tenderness Neurologic/Psychiatric: alert, oriented x 3 Skin: normal color, warm/dry, no rash Lymphatic: no adenopathy Laboratory Results --------- RUN DATE: 11/09/17 [facility] LAB PAGE 1 RUN TIME: 1510 Specimen Inquiry PATIENT: JULIANKAILYN Moreno LOC: [place] # : [id number] AGE/SX: 66/M ROOM: [facility] REG : 11/03/[address]: Peri Hutchins CRNP : 1950 BED: 2 DIS : STATUS: ADM IN TLOC: SPEC #: [id number] ANNABELLA: 11/06/17 STATUS: RES REQ #: [id number] RECD: 11/06/[address] [facility] [address]: Rodney Hoover M.D. SOURCE: TISSUE ENTR: 11/06/[address]: Juan Luis Wheeler D.OReno SPDESC: Christopher Pena MD, Christopher E., M.D. Martin, Elizabeth M., D.O. ORDERED: AER/KATERINA CULTSMR COMMENTS: SOURCE IS L4-L5 TISSUE Procedure Result Verified Site GRAM STAIN Final 11/07/17 RESULT FEW WBCs SEEN NO ORGANISMS SEEN OR AER/KATERINA CULT Preliminary 11/09/17 Organism 1 STAPHYLOCOCCUS AUREUS QUANITY RARE SENS SENSITIVITY TO FOLLOW 1. STAPHYLOCOCCUS AUREUS Target Route Dose RX AB Cost M.I.C. IQ ------ ----- ------ -- ------ -------- - ------ TRIMET/SULFA S <=0.5/ 9.5 * OXACILLIN S 2 VANCOMYCIN S 2 ERYTHROMYCIN R >4 TETRACYCLINE S <=4 CLINDAMYCIN R >4 DAPTOMYCIN S <=0.5 S = SENSITIVE I = INTERMEDIATE R = RESISTANT END OF REPORT Last 24 Hours Test 11/09/17 06:16 11/09/17 08:14 11/09/17 12:02 11/09/17 16:56 White Blood Count 11.48 K/uL Red Blood Count 2.99 M/uL Hemoglobin 9.3 g/dL Hematocrit 28.6 % Mean Corpuscular Volume 95.7 fL Mean Corpuscular Hemoglobin 31.1 pg Mean Corpuscular Hemoglobin Concent 32.5 g/dl RDW Standard Deviation 55.3 fL RDW Coefficient of Variation 15.9 % Platelet Count 218 K/uL Mean Platelet Volume 10.5 fL Creatinine 1.31 mg/dl Est Creatinine Clear Calc Drug Dose 61.6 ml/min Estimated GFR () 64.4 Estimated GFR (Non- 55.5 Bedside Glucose 109 mg/dl 121 mg/dl 110 mg/dl Test 11/09/17 20:53 Bedside Glucose 130 mg/dl Assessment and Plan Patient with worsening diskitis, osteomyelitis, and phlegmon involving the lumbar area and psoas muscle. Cultures growing methicillin Staph aureus, can likely continue treatment with daptomycin alone, will need prolonged IV antibiotic therapy. Will follow.
[2017-11-10] VITALS (12 sets, daily range): BP systolic 108–136; BP diastolic 65–74; PULSE 76–86; TEMP 36.4–36.9; O2SAT 92–100; Ht 177.8 cm; Wt 92.4 kg
[2017-11-10] MEDS: LEVALBUTEROL 1.25MG/3ML NEB INH SCH ×3 (01:46→14:19)
[2017-11-10] MEDS: ENOXAPARIN 40 MG/0.4 ML SYR SQ SCH (05:39)
[2017-11-10] MEDS: HYDROmorphone HCL 0.5MG/ML 50 ML CASSETTE IV PRN (07:07)
[2017-11-10] MEDS ORDERED: OXYCODONE HCL IR 5 MG TAB (IMMEDIATE RELEASE) PO PRN (09:15)
[2017-11-10] MEDS: FLUTICASONE/SALMETEROL 250/50 (ADVAIR) 14 PUFF/1 INHALER INH SCH (09:15)
[2017-11-10] MEDS: DOCUSATE SODIUM 100 MG CAP PO SCH ×2 (09:15→13:41)
[2017-11-10] MEDS: MULTIVITAMIN TAB PO SCH (09:16)
[2017-11-10] MEDS: AMIODARONE 200 MG TAB PO SCH (09:16)
[2017-11-10] MEDS: PANTOprazole SOD 40 MG TAB PO SCH (09:17)
[2017-11-10] MEDS: DULOXETINE HCL 60 MG CAP PO SCH (09:17)
[2017-11-10] MEDS: CARBIDOPA/LEVODOPA 25/100MG TAB PO SCH ×3 (09:17→16:45)
[2017-11-10] MEDS: CHOLECALCIFEROL 1000 INTER.UNIT TAB PO SCH (09:17)
[2017-11-10] MEDS: POLYETHYLENE (MIRALAX) 17 GM PACK PO SCH ×2 (09:18→09:25)
[2017-11-10] MEDS: CARBIDOPA/LEVODOPA 50/200MG EXT REL TAB PO SCH (09:18)
[2017-11-10] MEDS: LUBIPROSTONE 8 MCG CAP PO SCH ×2 (09:19→13:41)
[2017-11-10] MEDS: ASPIRIN 81 MG ECTAB PO SCH (09:19)
[2017-11-10] MEDS: AMLODIPINE BESYLATE 5 MG TAB PO SCH (09:19)
[2017-11-10] MEDS: INSULIN ASPART 100 UNITS/ML 3 ML PEN SC SCH ×2 (09:20→12:58)
[2017-11-10 09:27] LABS: CALCIUM 8.3 mg/dl (8.5-10.1); CREATININE 1.4 mg/dl (0.60-1.40); POTASSIUM 3.6 mmol/L (3.5-5.1)
[2017-11-10] MEDS: TIOTROPIUM BROMIDE 5 PUFF/90 MCG INH INH SCH (10:16)
[2017-11-10] MEDS ORDERED: RXC5 PO (13:51)
--- NOTE | 2017-11-10 14:00 | Discharge Instructions ---
Discharge Instructions Date of Service Nov 10, 2017. Admission Reason for Admission: Back Pain Discharge Discharge Diagnosis / Problem: Back pain with osteomyelitis Discharge Goals Goal(s): Improve disease control Activity Recommendations Activity Limitations: resume your previous activity Exercise/Sports Limitations: gradually increase as tolerated . Instructions / Follow-Up Instructions / Follow-Up You will return home with home health. They will contact you to set up a time to come tomorrow and teach your family how to administer antibiotic. Home health should provide medical surveillance of daptomycin as well. You should have follow up liver function tests per their instruction while taking daptomycin. Per Dr. Thompson, daily dressing changes and you may shower in two days. No submersion bathing until cleared by orthopedics Please follow up with your primary care provider within about a week. You should follow up with infectious disease and orthopedics as well. The nurse navigator for [facility] will call you with appointments. Please call the offices if you do not hear from her in the next couple of days. Current Hospital Diet Patient's current hospital diet: AHA Diet (Heart Healthy), Diabetes Type 2 Diet Discharge Diet Recommended Diet: AHA Diet (Heart Healthy), Diabetes Type 2 Diet Procedures Procedures Performed: 1. Removal of posterior instrumentation L4-5. #2 revision decompressionL4-5. #3 expiration of fusion L4-5. #4 placement of stimulant beads. Pending Studies Studies pending at discharge: no Laboratory Results Hemoglobin A1c Test 09/21/17 14:23 Range/Units Estimated Average Glucose 105 mg/dl Hemoglobin A1c 5.3 4.5-5.6 % Lipid Panel Test 10/30/17 10:33 Range/Units Triglycerides Level 71 0-150 mg/dl Cholesterol Level 82 0-200 mg/dl HDL Cholesterol 44 mg/dl Cholesterol/HDL Ratio 1.9 LDL Cholesterol, Calculated 24 mg/dl Medical Emergencies . Who to Call and When: Medical Emergencies: If at any time you feel your situation is an emergency, please call 911 immediately. . Non-Emergent Contact Non-Emergency issues call your: Primary Care Provider Call Non-Emergent contact if: you have a fever, you have any medication questions . . "Provider Documentation" section prepared by Peri Hutchins. .
--- NOTE | 2017-11-10 14:15 | Discharge Summary ---
Discharge Summary Date of Service Nov 10, 2017. Discharge Summary Admission Date: Nov 03, 2017 at 21:20 Discharge Date: Nov 10, 2017 Discharge Disposition: Home with services Principal Diagnosis: Back pain with Osteomyelitis/Phlegmon vs abscess Problems/Secondary Diagnoses: Acute kidney Injury, Parkinson's Disease, COPD, AF, Hypertension, CAD s/p UT, s/ p CABG, LES, DM II, BPH Immunizations: Have You Had Influenza Vaccine: Yes Influenza Vaccine Date: Mar 07, 2007 History of Tetanus Vaccine?: Yes Tetanus Immunization Date: Jul 19, 2010 History of Pneumococcal: Yes History of Hepatitis B Vaccine: No Procedures: Operative Date Nov 06, 2017. Pre-Operative Diagnosis Lumbar epidural abscess L4-5 Post-Operative Diagnosis Same Procedure(s) Performed 1. Removal of posterior instrumentation L4-5. #2 revision decompression L4-5. #3 expiration of fusion L4-5. #4 placement of stimulant beads. Surgeon Dr. Wheeler Business Continuity Planner Surgeon(s) Marva Vallejo PA-C Estimated Blood Loss 50 Specimens A: Explanted hardware, lumbar spine Description of Procedure Patient was met with preoperatively case discussed all questions are addressed. At that point patient was taken back to the operative suite underwent intubation and placed in a prone position injection table on top of the Gio frame. All bony prominences well-padded eyes inspected to ensure no external pressure placed upon them. This point the lumbar spine was prepped and draped in normal sterile fashion. Sharp dissection with the assistance of Bovie cautery was performed down to and exposing the L4-5 instrumentation bilaterally. It was subsequently removed. Obvious loosening of all 4 screws was noted. Then performed a small revision laminotomy on the right exploring the epidural space for any fluid collections. None were noted. Both soft tissue as well as swab cultures were obtained and sent to the lab. Scar tissue was removed to healthy musculature bone graft was explored in a filled the pedicle screw holes with gent and vancomycin impregnated stimulant beads. He wound was also copiously irrigated. A 15 round LILLY drain inserted. Incision was then closed with 1 Vicryl fascia 2-0 Vicryl subcutaneous and 4 Monocryl for fashion closure. Steri-Strips sterile dressings placed. Patient will continue PACU stable disc. Please note Alyssa Vallejo was present throughout the entire procedure involved in patient positioning complex portions of the surgery and final skin closure. I attest to the content of the Intraoperative Record and any orders documented therein. Any exceptions are noted below. LUMBAR SPINE, INTRAOPERATIVE FLUOROSCOPY HISTORY: Incision and drainage of lumbar spine with removal of hardware. FLUOROSCOPY TIME: 0.8 seconds. FINDINGS: Intraoperative fluoroscopy was provided for the lumbar spine. A single fluoroscopic spot image of the lumbar spine was submitted. Spinal fusion hardware has been completely removed. IMPRESSION: Fluoroscopy provided for removal of the lumbar spinal fusion hardware.. Electronically signed by: Kraig Johnson M.D. 11/06/2017 5:49 PM CHEST ONE VIEW PORTABLE CLINICAL HISTORY: Sepsis. COMPARISON STUDY: Chest radiograph September 06, 2017. FINDINGS: Median sternotomy wires and mediastinal surgical clips are noted. Moderate cardiomegaly is unchanged. Mild interstitial prominence is unchanged. There is no evidence for overt edema. No pneumothorax or pleural effusion is noted. Elevation the right hemidiaphragm is unchanged. Several old right rib fractures are incidentally noted. IMPRESSION: No acute cardiopulmonary findings. No change in appearance of the chest. Electronically signed by: Gerald Emerson M.D. 11/03/2017 6:00 PM Consultations: Christopher Owusu from ID, Jey Thompson from orthopedics Medication Reconciliation New Medications: Oxycodone HCl (Oxycodone HCl) 5 Mg Tab 5-10 MG PO Q6H PRN for Pain for 3 Days, #20 DOSE Continued Medications: Amiodarone HCl (Amiodarone HCl) 200 Mg Tab 200 MG PO DAILY Amlodipine (Norvasc) 10 Mg Tab 10 MG PO DAILY, TAB Aspirin (Aspirin Ec) 81 Mg Tab 81 MG PO DAILY Carbidopa/Levodopa (Sinemet Cr 50MG/200MG) Tabcr 1 TAB PO BID, TAB Carbidopa/Levodopa (Sinemet 25MG/100MG) Tab 4 TAB PO QID, TAB Cholecalciferol (Vitamin D3) 2,000 Unit Cap 1 CAP PO DAILY for 90 Days, #90 CAP 3 Refills Cyclobenzaprine Hcl (Flexeril) 10 Mg Tab 10 MG PO TID PRN for Muscle Spasms, #21 TAB Desloratadine (Clarinex) 5 Mg Tab 5 MG PO DAILY, TAB Docusate Sodium (Colace) 100 Mg Cap 1 CAP PO TID Duloxetine Hcl (Cymbalta) 60 Mg Cap 60 MG PO DAILY, CAP Fluticasone Prop/Salmeterol (Advair Diskus 250-50 Mcg/Dose) 14 Puff/1 Inhaler Aerp 1 PUFF INH Q12 Furosemide (Lasix) Unknown Strength Tab Unknown Dose PO PRN for WEIGHT GAIN, TAB Hydralazine Hcl (Apresoline) 100 Mg Tab 1 TAB PO TID for 30 Days, #90 TAB 5 Refills Ipratropium-Albuterol (Duoneb) 3 Ml Nebu 1 TREATMENT INH Q4H, INHA Levalbuterol (Levalbuterol HCl) 1.25 Mg/3 Ml Nebu 1.25 MG PO Q6, #72 Levalbuterol Hcl (Levalbuterol) 1.25 Mg/0.5 Ml Neb 1.25 MG PO Q2H PRN for SOB/Wheezing Lubiprostone (Amitiza) 8 Mcg Cap 8 MCG PO TID, CAP Metoprolol Succ (Toprol Xl) (Toprol-Xl) 50 Mg Tabcr 75 MG PO HS Multivitamin (Multivitamin) Tab 1 TAB PO DAILY, TAB Pantoprazole Sodium (Protonix) 20 Mg Tab 20 MG PO DAILY, #90 Polyethylene Glycol 3350 (Miralax) 1 Pow Pow 17 GM PO DAILY, #255 GM Tamsulosin HCl (Tamsulosin HCl) 0.4 Mg Cap 0.4 MG PO HS Tiotropium Munson (Spiriva Handihaler) 30 Puff/540 Mcg Aerp 1 CAP PO DAILY, #90 Discontinued Medications: Doxycycline Monohydrate (Monodox) 100 Mg Cap 100 MG PO BID, CAP Simvastatin (Zocor) 20 Mg Tab 40 MG PO QPM, TAB Discharge Exam ROS Constitutional: no chills, aches, sweats or fever Respiratory: no sob,cough, sputum, or wheezing Cardiac: no chest pain, palpitations, edema, orthopnea or lightheadedness GI: no abdominal pain, nausea, vomiting, diarrhea or constipation : no dysuria or hesitancy Extremities: no joint pain or weakness Skin: no rash All other systems reviewed and negative PE General: no distress Eyes: normal inspection, PERLL Respiratory: chest non tender, clear to auscultation, normal breath sounds, no respiratory distress, no accessory muscle use Cardiac: regular rate and rhythm, no rub or gallop, no murmur, no edema, no jvd GI/: active bowel sounds, no abd pain or tenderness, soft, non distended Extremities: normal range of motion, normal strength, non tender Neuro/Psych: alert and oriented x 3, normal mood and affect Skin: normal color, dry, incision without drainage, well approximated Hospital Course Mr. Damon is a 66yo male with multiple medical problems presenting with 1 month of progressive LBP, outpatient MRI with concerns for progressive discitis/ osteomyelitis at L4-L5 as well as phlegmon at L4-S1. L4-L5 with mild displacement of the thecal sac to the left with severe central canal narrowing. Enhancement of soft tissues at the laminectomy site concerning for infectious change. Back pain with Osteomyelitis/Phlegmon vs abscess - patient afebrile, hemodynamically stable. Non-septic in appearance. CT Lumbar spine: Moderate paravertebral edema at the L4-S1 level, as shown on MRI of November 03, 2017. This favored an infectious process which extended into the right psoas muscle. S/P removal of hardware and I and D (11/06) -Wound cultures with MSSA and MRSA - per ID - daptomycin x 6 wks, dc'd cefepime -Blood cultures ngtd -Pain was controlled after switching to SLAG WHEELER pump - today patient has not required SLAG WHEELER and only required 1 dose 0.25 mg overnight -Continue Flexeril, Cymbalta for pain control -Consultation with Dr. Wheeler from Orthopedics - s/p Removal of posterior instrumentation L4-5. #2 revision decompression L4-5. #3 expiration of fusion L4-5. #4 placement of stimulant beads on 11/06 -Hold statin while on Daptomycin - PICC in place - will continue with daptomycin at home with home health Acute kidney Injury - resolved Parkinson's Disease - stable, chronic -Continue Sinemet 25/100 1 tab QID and CR 50/200 1 tab BID. -Appears to be stable. -Patient continues to have chorea and tremors. COPD - stable, no respiratory distress, adequate oxygenation and ventilation on room air -Continue Xopenex PRN -Continue Advair -Continue Spiriva -Smoking cessation counseling AF - patient presently rate controlled. Not on anticoagulation -Continue Amiodarone -Continue to monitor Hypertension -Continue Amlodipine, Hydralazine and Metoprolol CAD s/p UT, s/p CABG - stable, no CP -Continue Metoprolol, ASA -No new findings on EKG except for PVCs. -Holding statin as above LES - stable -CPAP qHS DM - No report of diabetic medication on medication reconciliation - hypoglycemic overnight 11/08, not on any long acting insulins, no further hypoglycemia -Will cover with ISS -continue bsgs ac & hs BPH - stable, chronic -Continue Flomax Ppx - Lovenox and Protonix I did discuss with patient my recommendation that he go to inpatient rehab per PT/OT evals however he refuses. He does have family support at home and will have home health for help with wound care and antibiotics. I did discuss the discharge plan in depth with his who is in agreement. I also discussed pain management with patient. Per his , patient has hallucinations with oxycodone. He has tolerated tramadol in the past and prefers to take that if he needs something more than tylenol. I will send him home with a few days of tramadol for pain control. [employer] Physician Supervision Note: I discussed with Peri Hutchins [employer] and agree with findings and plan as documented in the note. Any exceptions or clarifications are listed here: None After discussions with Ms. Hutchins is clear that this patient may be better served by being in a disposition alternative to home with home health however the patient is adamantly refusing is the same will attempt to arrange as much support as we can with home health for intravenous antibiotics and close follow- up with orthopedic surgery for his back wound assessment and care Documented By: Jose Alberto Cristina Total Time Spent: Greater than 30 minutes This includes examination of the patient, discharge planning, medication reconciliation, and communication with other providers. Discharge Instructions Please refer to the electronic Patient Visit Report (Discharge Instructions) for additional information.
[2017-11-10] MEDS ORDERED: ULT50X PO (14:44)
[2017-11-10] MEDS ORDERED: ACET-1047 PO (14:44)
[2017-11-10] MEDS: DAPTOmycin IV 450 MG in SYRINGE 0 ML IV SCH (15:44)
--- NOTE | 2017-11-16 12:24 | EDITING REQUIRED CODING QUERY ---
CODING QUERY To promote full compliance with coding requirements relating to patient care, provider participation is requested in all cases of bacon de rinder uncertainty. Please assist us with the question(s) below: Coding Question(s): There is documentation of Lumbar Epidural Abscess. There is documentation of history of infection and history of spinal surgery. Please clarify below, in your clinical opinion. ( x ) Possible Epidural Abscess is likely a postoperative complication ( ) Possible Epidural Abscess is not a postoperative complication Physician's Response(s): Thank you Keya Frederick Principal Diagnosis: "_that condition established after study, to be chiefly responsible for occasioning the admission of the patient to the hospital for care." Co-Existing Principal Diagnosis: "_when two or more diagnoses equally meet the criteria for principal diagnosis as determined by the circumstances of admission, diagnostic work up, and/or therapy provided, and the Alphabetic Index, Tabular List, or another coding guideline does not provide sequencing direction, any one of the diagnoses may be sequenced first." "When the physician has documented what appears to be a current diagnosis in the body of the record, but has not included the diagnosis in the final diagnostic statement, the physician should be asked whether the diagnosis should be added." (Source Coding [facility] 2 QTR90. p3-4)
== END 2017-11-10 16:55 | disposition home health service (06) | DRG 856 ==
LOC: C.EDB 17:16 → C.MSN 21:20 → ENRESERV 21:36 → EDBEDREQ 21:56
PROVIDERS: ADMIT Internal Medicine; ATTEND Nurse Practitioner Family
PROC: 0SP004Z Removal of Internal Fixation Device from Lumbar Vertebral Joint, Open Approach (ICD-10-PCS; principal; 2017-11-06 07:15)
PROC: 0JB70ZX Excision of Back Subcutaneous Tissue and Fascia, Open Approach, Diagnostic (ICD-10-PCS; principal; 2017-11-06 07:15)
PROC: 3E0V329 Introduction of Other Anti-infective into Bones, Percutaneous Approach (ICD-10-PCS; principal; 2017-11-06 07:15)
PROC: 05HC33Z Insertion of Infusion Device into Left Basilic Vein, Percutaneous Approach (ICD-10-PCS; 2017-11-09)
DX: T81.4XXA Infection following a procedure, initial encounter (principal); K68.12 Psoas muscle abscess; G06.1 Intraspinal abscess and granuloma; T84.038A Mechanical loosening of other internal prosthetic joint, initial encounter; M46.26 Osteomyelitis of vertebra, lumbar region; N17.9 Acute kidney failure, unspecified; I50.32 Chronic diastolic (congestive) heart failure; B95.61 Methicillin susceptible Staphylococcus aureus infection as the cause of diseases classified elsewhere; B95.62 Methicillin resistant Staphylococcus aureus infection as the cause of diseases classified elsewhere; G20 Parkinson's disease; E11.649 Type 2 diabetes mellitus with hypoglycemia without coma; J44.9 Chronic obstructive pulmonary disease, unspecified; I11.0 Hypertensive heart disease with heart failure; I25.10 Atherosclerotic heart disease of native coronary artery without angina pectoris; I25.2 Old myocardial infarction; I48.0 Paroxysmal atrial fibrillation; E78.5 Hyperlipidemia, unspecified; G47.33 Obstructive sleep apnea (adult) (pediatric); N40.0 Benign prostatic hyperplasia without lower urinary tract symptoms; K21.9 Gastro-esophageal reflux disease without esophagitis; E66.9 Obesity, unspecified; F17.200 Nicotine dependence, unspecified, uncomplicated; Z51.81 Encounter for therapeutic drug level monitoring; Z79.899 Other long term (current) drug therapy; Z79.82 Long term (current) use of aspirin; Z98.1 Arthrodesis status; Z95.1 Presence of aortocoronary bypass graft; Z86.711 Personal history of pulmonary embolism; Z68.29 Body mass index [BMI] 29.0-29.9, adult; Z88.8 Allergy status to other drugs, medicaments and biological substances; Z91.030 Bee allergy status; Z82.49 Family history of ischemic heart disease and other diseases of the circulatory system; Y83.8 Other surgical procedures as the cause of abnormal reaction of the patient, or of later complication, without mention of misadventure at the time of the procedure

== ENCOUNTER → 2017-11-19 | Outpatient (CLI) | payer OTHER ==
[~2017-11-19] MED LIST changes: +ACET-1047 PO; +CARB25TA12 PO; -CYM/30 PO; +DAPT500I IV; -DOXY100C76 PO; +DULO60CA44 PO; +FURO-85 PO; +FURO20TA PO; +MCRK20 PO; +MGNO400 PO; -SIMV20TA2 PO; +TIOT1SPR INH; +ULT50X PO; +XPNINS125 INH; -XPNINS125 PO
[2017-11-19 17:17] LABS: HEMOGLOBIN 11.1 g/dL (14.0-18.0); MEAN CELL VOLUME 94.5 fL (80-100); MEAN CORPUSCULAR HEMOGLOBIN 29.1 pg (25-34); MEAN CORPUSCULAR HGB CONC 30.8 g/dl (32-36); MEAN PLATELET VOLUME 10.3 fL (7.4-10.4); PLATELET COUNT 302 K/uL (130-400); RED CELL DISTRIBUTION WIDTH CV 15.9 % (11.5-14.5); RED CELL DISTRIBUTION WIDTH SD 55.3 fL (36.4-46.3); WHITE BLOOD COUNT 12.33 K/uL (4.8-10.8)
[2017-11-19 17:47] LABS: BLOOD UREA NITROGEN 9 mg/dl (7-18); CALCIUM 9.1 mg/dl (8.5-10.1); CARBON DIOXIDE 28 mmol/L (21-32); GLUCOSE 87 mg/dl (70-99); POTASSIUM 3.7 mmol/L (3.5-5.1); SODIUM 135 mmol/L (136-145)
== END | disposition home or self-care (01) ==
LOC: C.LABSPEC 17:33
PROVIDERS: ATTEND Internal Medicine Infectious Disease
DX: M46.40 Discitis, unspecified, site unspecified (principal); M86.9 Osteomyelitis, unspecified; B95.62 Methicillin resistant Staphylococcus aureus infection as the cause of diseases classified elsewhere

== ENCOUNTER 2017-11-24 10:03 | Inpatient (IN) | payer OTHER ==
[~2017-11-24] VITALS: Ht 177.8 cm; Wt 94.0 kg
[~2017-11-24 10:03] MED LIST changes: -DAPT500I IV; -DOCU-94 PO; -FURO20TA PO; -LUBI8CAP4 PO; -MCRK20 PO; -MGNO400 PO; -TIOT1SPR INH; -XPNINS125 INH
--- NOTE | 2017-11-24 10:16 | EMERGENCY ROOM VISIT NOTE ---
History Report prepared by Sherrie: Shlomo Alvarado Under the Supervision of: Dr. Fausto Dunne M.D. 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 Per EMS, the patient was not waking up and he was given .4 Narcan. The patient also had a PICC in his left arm. Per nurse, the patient took a gabapentin last night which he usually does not do. The patient has been recently discharged on November 10 after getting hardware removed including vancomycin beads placement, LILLY drain placed in his back. The patient is supposed to be on daptomycin for this. HPI limited secondary to unresponsive patient. Source of History: EMS, nursing staff History Limited By: other (unresponsive ) Onset: This morning Position: other (Generalized) Quality: other (unresponsive) Review of Systems ROS limited secondary to unresponsive patient Past Medical & Surgical Medical Problems: (1) Abscess in epidural space of lumbar spine (2) Acute on chronic diastolic (congestive) heart failure (3) Back pain (4) Bronchitis (5) Bulging disc (6) Chest wall pain (7) COPD (chronic obstructive pulmonary disease) (8) COPD exacerbation (9) Fall (10) Hallucinations (11) Heart disease (12) Hx MRSA infection (13) Hyperlipidemia (14) Hypertension (15) Hypoxia (16) inability to ambulate (17) Infection of lumbar spine (18) Lumbar stenosis with neurogenic claudication (19) Parkinson disease (20) Parkinsons disease (21) Pneumonia involving right lung (22) Radicular pain of right lower extremity (23) Seizure-like activity (24) Shoulder pain Surgical Problems: (1) History of appendectomy (2) History of back surgery (3) S/P CABG x 2 Family History FH: heart disease Hypertension Social History Smoking Status: Current Every Day Smoker Alcohol Use: none Drug Use: none Marital Status: Housing Status: assisted living Occupation Status: retired, disabled Current/Historical Medications Scheduled Amiodarone HCl (Amiodarone HCl), 200 MG PO DAILY Amlodipine (Norvasc), 10 MG PO DAILY Aspirin (Aspirin Ec), 81 MG PO DAILY Carbidopa/Levodopa (Sinemet Cr 50MG/200MG), 1 TAB PO BID Carbidopa/Levodopa (Sinemet 25MG/100MG), 1 TAB PO QID Cholecalciferol (Vitamin D3), 1 CAP PO DAILY Daptomycin (Daptomycin), 500 MG IV DAILY Desloratadine (Clarinex), 5 MG PO DAILY Docusate Sodium (Colace), 1 CAP PO BID Duloxetine Hcl (Cymbalta), 60 MG PO DAILY Fluticasone Prop/Salmeterol (Advair Diskus 250-50 Mcg/Dose), 1 PUFF INH Q12 Hydralazine Hcl (Apresoline), 1 TAB PO TID Lubiprostone (Amitiza), 8 MCG PO DAILY Metoprolol Succ (Toprol Xl) (Toprol-Xl), 75 MG PO HS Multivitamin (Multivitamin), 1 TAB PO DAILY Pantoprazole Sodium (Protonix), 20 MG PO DAILY Polyethylene Glycol 3350 (Miralax), 17 GM PO DAILY Tamsulosin HCl (Tamsulosin HCl), 0.4 MG PO HS Tiotropium Geff (Spiriva Respimat), 2 PUFF INH DAILY Scheduled PRN Acetaminophen (Mapap), 1,000 MG PO Q8H PRN for Pain Furosemide (Lasix), 20-60 MG PO TID PRN for FLUID Levalbuterol (Levalbuterol HCl), 1.25 MG INH Q4-6HOURS PRN for SOB/Wheezing Tramadol HCl (Tramadol HCl), 50 MG PO Q6H PRN for Pain Allergies Coded Allergies: BEE STING (Verified Allergy, Severe, ANAPHYLAXIS, 11/24/17) Triptans (Verified Allergy, Unknown, unknown, 11/24/17) Benztropine (Verified Adverse Reaction, Intermediate, hallucinations/ mental confusion, 11/24/17) Eletriptan (Verified Adverse Reaction, Intermediate, CONFUSION, 11/24/17) Ropinirole (Verified Adverse Reaction, Unknown, unknown, 11/24/17) Physical Exam Vital Signs Date Time Temp Pulse Resp B/P (MAP) Pulse Ox O2 Delivery O2 Flow Rate FiO2 11/24/17 15:13 86 24 131/75 97 Room Air 11/24/17 15:13 131/75 11/24/17 14:33 82 19 91 11/24/17 14:31 132/75 11/24/17 14:03 86 25 97 11/24/17 14:01 157/87 11/24/17 13:39 85 20 130/84 98 Room Air 2.0 11/24/17 13:37 130/84 11/24/17 13:33 80 17 11/24/17 13:31 194/ 11/24/17 13:29 157/115 11/24/17 13:03 82 13 97 11/24/17 13:01 137/107 11/24/17 12:33 79 27 99 11/24/17 12:31 120/92 11/24/17 12:05 80 11/24/17 12:02 80 18 129/77 99 Nasal Cannula 3.0 11/24/17 12:01 129/77 11/24/17 11:37 81 18 164/77 94 Room Air 11/24/17 11:07 78 16 144/82 93 Room Air 11/24/17 11:01 92 Room Air 11/24/17 10:12 36.7 79 16 154/92 92 Room Air 11/24/17 10:09 92 Nasal Cannula Physical Exam GENERAL: Somnolence HENT: Normocephalic, atraumatic. EYES: Normal conjunctiva. Sclera non-icteric. PERRL. No anisocoria. NECK: Supple. No nuchal rigidity. FROM. RESPIRATORY: CTAB, no rhonchi, wheezing, crackles CARDIAC: RRR, no MRG ABDOMEN: Soft, NTND, BS+ Back: Well healed vertical incisional scar with no erythema, fluctuance or drainage. MSK: No chest wall TTP, no LE edema. PICC line in LUE NEURO: GCS 14, CN 2-12 intact, intermittently follows commands and awakens to sternal rub. Baseline RUE tremor SKIN: Ecchymosis on upper extremities bilaterally and on LLQ of abdomen Medical Decision & Procedures ER Provider Diagnostic Interpretation: Radiology results as stated below per my review and radiologist interpretation: CT SCAN OF THE LUMBAR SPINE WITHOUT IV CONTRAST CLINICAL HISTORY: Increasing low back pain. Increasing drainage status post I&D. COMPARISON STUDY: CT scan of the lumbar spine dated 11/04/2017. TECHNIQUE: CT scan of the lumbar spine is performed from the lower thoracic spine to the sacrum. Images are reviewed in the axial, sagittal, and coronal planes. IV contrast was not administered for this examination. A dose lowering technique was utilized adhering to the principles of ALARA. CT DOSE: 742.41 mGy.cm FINDINGS: The skeletal structures are osteopenic. There is no evidence of acute fracture or malalignment involving the lumbar spine. Vertebral body height and alignment are maintained. There has been laminectomy at L4-L5 with interval hardware removal as compared to 11/04/2017. The transverse processes appear intact. Anterior osteophytes are seen throughout. No lytic or blastic lesion is seen. There is no evidence of spondylolysis. There is no bony erosion or periostitis. There is advanced disc space narrowing at L5-S1. Only mild disc space narrowing is seen at the remaining lumbar levels. There is a large posterior disc osteophyte complex at L5-S1. There is no evidence of large disc herniation by CT. Although not well evaluated by CT, there is no evidence of fluid collection within the central canal. The visualized sacrum and bony pelvis appear intact noting degenerative change involving the sacroiliac joints. There is mild fatty atrophy of the paraspinous musculature. Postoperative change is seen within the posterior paraspinous soft tissues. There is a fluid collection identified within the subcutaneous fat posteriorly at the L3-L5 levels. This does not encroach upon the central canal. There are also small pockets of fluid identified at the sites were the interpedicular screws have been removed, best seen on axial image #191. This fluid is symmetric, low-attenuation, and shows peripheral calcifications. These measure up to 3.6 cm on the right and up to 4.8 cm on the left. There is advanced atherosclerotic calcification of the abdominal aorta. A 1.8 cm left adrenal adenoma is unchanged. Significant paravertebral edema is identified at the operative levels, and involving the right iliopsoas muscle. There is no evidence of fluid collection at this site on this unenhanced examination. IMPRESSION: 1. No acute osseous abnormality is identified involving the lumbar spine. 2. Osteopenia and degenerative change with evidence of interval hardware removal at L4-L5 as compared to 11/04/2017. 3. There is persistent paravertebral edema identified at L4 and L5 which also involves the right psoas muscle. The appearance remains concerning for infection. No fluid collection is seen at this site on this unenhanced examination. 4. There is a low-attenuation fluid collection identified within the posterior subcutaneous fat at the operative levels. This measures approximate 7 x 3 x 3 cm, and likely represents a seroma/hematoma. Abscess would be impossible to exclude. 5. There are small and symmetric pockets of fluid identified at the sites of the interpedicular screw removal. Although infection would be impossible to exclude this likely represents expected postoperative change. 6. Although the central canal is not well assessed by CT, there is no convincing evidence of epidural collection on this unenhanced examination. Electronically signed by: Song Chambers M.D. 11/24/2017 12:04 PM Dictated Date/Time: 11/24/2017 11:45 AM SINGLE VIEW CHEST CLINICAL HISTORY: Weakness. FINDINGS: 2 AP, portable, upright chest radiographs are compared to study dated 11/03/2017. The examination is degraded by portable technique and patient rotation. The patient is status post midline sternotomy. The heart is enlarged and there is atherosclerotic calcification of the thoracic aorta. There is pulmonary vascular congestion with evidence of interstitial edema. There are small pleural effusions with bibasilar consolidation. No pneumothorax is seen. The skeletal structures are osteopenic. The bony thorax is grossly intact. IMPRESSION: 1. Cardiomegaly with evidence of congestive failure and interstitial edema. 2. There are small pleural effusions with bibasilar consolidation. This likely represents atelectasis. Clinical correlation will be required. Electronically signed by: Song Chambers M.D. 11/24/2017 10:45 AM Dictated Date/Time: 11/24/2017 10:[address] SCAN OF THE BRAIN WITHOUT IV CONTRAST CLINICAL HISTORY: Generalized weakness. COMPARISON STUDY: CT of the brain dated 03/30/2016. TECHNIQUE: Unenhanced axial CT scan of the brain is performed from the vertex to the skull base. A dose lowering technique was utilized adhering to the principles of ALARA. The patient was scanned twice due to motion artifact. The examination is compromised by motion. CT DOSE: 1228.53 mGy.cm FINDINGS: Brain parenchyma: The brain parenchyma is normal as visualized. There is no hemorrhage, mass effect, or evidence of acute territorial ischemia by CT criteria. Winkler-white matter is preserved. No extra-axial fluid collection is seen. Ventricles, sulci, cisterns: Normal in configuration. Intracranial vasculature: There is atherosclerotic calcification of the cavernous carotid and vertebral arteries. Calvarium: Unremarkable. Sinuses and mastoids: The visualized paranasal sinuses are clear. There is a large right mastoid effusion. The left mastoid air cells are well pneumatized. Orbits: The bony orbits are grossly intact. IMPRESSION: There is no hemorrhage, mass effect, or evidence of acute territorial ischemia by CT criteria noting a motion compromised examination. Electronically signed by: Song Chambers M.D. 11/24/2017 11:37 AM Dictated Date/Time: 11/24/2017 11:35 AM Laboratory Results 11/24/17 10:48 Red Blood Count 3.87, Mean Corpuscular Volume 93.3, Mean Corpuscular Hemoglobin 29.2, Mean Corpuscular Hemoglobin Concent 31.3, Mean Platelet Volume 10.2, Neutrophils (%) (Auto) 78.3, Lymphocytes (%) (Auto) 8.4, Monocytes (%) (Auto) 8.9, Eosinophils (%) (Auto) 2.3, Basophils (%) (Auto) 0.8, Neutrophils # (Auto) 11.14, Lymphocytes # (Auto) 1.19, Monocytes # (Auto) 1.26, Eosinophils # (Auto) 0.33, Basophils # (Auto) 0.12 11/24/17 10:48 Test 11/24/17 10:48 11/24/17 13:12 White Blood Count 14.22 K/uL (4.8-10.8) Red Blood Count 3.87 M/uL (4.7-6.1) Hemoglobin 11.3 g/dL (14.0-18.0) Hematocrit 36.1 % (42-52) Mean Corpuscular Volume 93.3 fL (80-100) Mean Corpuscular Hemoglobin 29.2 pg (25-34) Mean Corpuscular Hemoglobin Concent 31.3 g/dl (32-36) Platelet Count 249 K/uL (130-400) Mean Platelet Volume 10.2 fL (7.4-10.4) Neutrophils (%) (Auto) 78.3 % Lymphocytes (%) (Auto) 8.4 % Monocytes (%) (Auto) 8.9 % Eosinophils (%) (Auto) 2.3 % Basophils (%) (Auto) 0.8 % Neutrophils # (Auto) 11.14 K/uL (1.4-6.5) Lymphocytes # (Auto) 1.19 K/uL (1.2-3.4) Monocytes # (Auto) 1.26 K/uL (0.11-0.59) Eosinophils # (Auto) 0.33 K/uL (0-0.5) Basophils # (Auto) 0.12 K/uL (0-0.2) RDW Standard Deviation 53.3 fL (36.4-46.3) RDW Coefficient of Variation 15.8 % (11.5-14.5) Immature Granulocyte % (Auto) 1.3 % Immature Granulocyte # (Auto) 0.18 K/uL (0.00-0.02) Erythrocyte Sedimentation Rate 85 mm/hr (0-14) Prothrombin Time 10.3 SECONDS (9.0-12.0) Prothromb Time International Ratio 1.0 (0.9-1.1) Activated Partial Thromboplast Time 30.1 SECONDS (21.0-31.0) Partial Thromboplastin Ratio 1.2 Anion Gap 8.0 mmol/L (3-11) Est Creatinine Clear Calc Drug Dose 74.7 ml/min Estimated GFR () 80.4 Estimated GFR (Non- 69.4 BUN/Creatinine Ratio 9.3 (10-20) Calcium Level 8.7 mg/dl (8.5-10.1) Phosphorus Level 3.0 mg/dl (2.5-4.9) Magnesium Level 2.2 mg/dl (1.8-2.4) Total Bilirubin 0.3 mg/dl (0.2-1) Direct Bilirubin 0.1 mg/dl (0-0.2) Aspartate Amino Transf (AST/SGOT) 18 U/L (15-37) Alanine Aminotransferase (ALT/SGPT) 12 U/L (12-78) Alkaline Phosphatase 126 U/L (45-117) Total Creatine Kinase 122 U/L (39-308) Troponin I < 0.015 ng/ml (0-0.045) C-Reactive Protein 7.13 mg/dl (0-0.29) Pro-B-Type Natriuretic Peptide 901 pg/ml (0-900) Total Protein 8.1 gm/dl (6.4-8.2) Albumin 3.0 gm/dl (3.4-5.0) Thyroid Stimulating Hormone (TSH) 2.240 uIu/ml (0.300-4.500) Salicylates Level < 1.7 mg/dl (2.8-20) Acetaminophen Level < 2 ug/ml (10-30) Ethyl Alcohol mg/dL < 3.0 mg/dl (0-3) Venous Blood pH 7.36 (7.36-7.41) Venous Blood Partial Pressure CO2 54 mmHg (38.0-50.0) Venous Blood Partial Pressure O2 40 mmHg Venous Blood HCO3 30 mmol/L Venous Blood Oxygen Saturation 72.4 % Venous Blood Base Excess 3.8 mEq/L Lactic Acid Level 0.8 mmol/L (0.4-2.0) Laboratory results reviewed by me Medications Administered Medications (Trade) Dose Ordered Sig/Igor Route Start Time Stop Time Status Last Admin Dose Admin Acetaminophen (Tylenol Tab) 650 mg Q4H PRN PO 11/24/17 15:15 12/24/17 15:14 11/25/17 14:25 650 MG Miscellaneous Information (Dc All Previously Ordered Diabetes Meds) 1 ea ONE ONCE N/A 11/24/17 15:15 11/24/17 16:11 DC 11/24/17 15:15 1 EA Tramadol HCl (Ultram Tab) 50 mg Q6H PRN PO 11/24/17 15:15 12/24/17 15:14 11/25/17 16:14 50 MG ECG Per My Interpretation Indication: altered mental status Rate (beats per minute): 82 Rhythm: sinus rhythm Findings: other (Normal intervals, no TWI, no STS changes ) ED Course 1009: The patient was evaluated in room C9. A complete history and physical exam was performed. 1021:I contacted poison control and discussed supportive care and they gave me recommendations if it was flexural. 1050: I talked to the family who told me he has been having pain and discomfort recently. They gave him a 300mg gabapentin last night. 1249: I reevaluated the patient and he is not doing much better. He will be admitted. 1253: I talked to Dr. Wheeler - Orthopedics, about the patient 1258: I talked to Dr. Humphreys about the patient's condition and admission. Medical Decision Nursing notes reviewed. Ancillary studies and prior records reviewed. The patient is a 66 year old male with a past medical history of abscess in epidural space of lumbar spine, acute CHF, back pain, bronchitis, bulging disc, chest wall pain, COPD, fall, hallucinations, heart disease, MRSA infection, HLD, HTN, hypoxia, inability to ambulate, infection of lumbar spine, lumbar stenosis with neurogenic claudication, Parkinson's disease, PNA in right lung, seizures, and shoulder pain who presents to the ED via EMS and was unresponsive Differential diagnosis: Etiologies such as metabolic, infection, hypo/hyperglycemia, electrolyte abnormalities, cardiac sources, intracerebral event, toxicologic, neurologic, medical overdose as well as others were entertained. Patient was seen and evaluated the bedside. I did review prior medical records which showed the patient had been discharged proximal for 2 weeks prior. The patient did have back surgery antibiotic bead placement as well as a LILLY drain. LILLY drain is no longer present. The patient apparently had been having worsening mental status beginning late last evening and this continued into this morning. Patient is afebrile. The patient was given some Narcan to see if there is any sort of reversal for possible unintentional opiate overdose. Per the patient's medical records the patient is on Cymbalta and Flexeril for pain control. There was talk that maybe the patient had taken some gabapentin. This is not listed on his medical list. The patient would awaken to sternal rub and the patient does move all fours to command. The patient is not hypotensive, tachycardic nor is the patient afebrile. I did look at the patient 's back incision site which appears clean dry and intact. No evidence of erythema or fluctuance or drainage. Patient did have a repeat blood sugar which is 102. The patient did have blood work completed along with a CT of the brain. I did speak with his for poison control they suggested supportive care for things like gabapentin or pregabalin with additional recommendations if he had taken too much of his Flexeril. I did speak with family and family stated the patient had been given 300 mg of gabapentin around 1030 last evening. Patient's blood work shows a white blood cell count of 14,000. Left shift is somewhat improved compared to prior. Patient's EKG does show PVCs but is otherwise unremarkable. Troponin is not elevated. The patient's BNP is somewhat elevated based on age. Chest x-ray did show concern for possible volume overload. Patient does not appear very volume overloaded but does have some left lower extremity swelling which for family's been ongoing for approximately 3 weeks. Patient likely does have an element of LES so he is on 2 L otherwise he does desat to 83%. The patient does not normally wear oxygen at baseline. DVT ultrasound was ordered along with VBG, lactate, blood cultures. I did speak with the on-call hospitalist who agreed to further evaluate and treat the patient. I also did talk with the on-call spinal specialist who did review the patient's imaging and any operative intervention is recommended at this time. Medication Reconcilliation Current Medication List: was personally reviewed by me Blood Pressure Screening Patient's blood pressure: Elevated blood pressure Blood pressure disposition: Elevated BP felt to be situational Consults Time Called: 1018 Consulting Physician: [place] [facility] Returned Call: [phone] I talked to [place] [facility] about supportive care and they gave me recommendations if it was flexural. Additional Consults: Time Called: 1250 Consulted Physician: Dr. Wheeler - Orthopedics Returned Call: [phone] Additional Comments: I talked to Dr. Wheeler about the patient's condition Time Called: 1256 Consulted Physician: Dr. Humphreys Returned Call: [phone] Additional Comments: I talked to Dr. Humphreys about the patient's condition and admission. Impression Primary Impression: Metabolic encephalopathy Additional Impression: Anemia Scribe Attestation The scribe's documentation has been prepared under my direction and personally reviewed by me in its entirety. I confirm that the note above accurately reflects all work, treatment, procedures, and medical decision making performed by me. Departure Information Dispostion Being Evaluated By Hospitalist Referrals Jeromy Hanson M.D. (PCP) Forms HOME CARE DOCUMENTATION FORM, IMPORTANT VISIT INFORMATION, WORK / SCHOOL INSTRUCTIONS Problem Qualifiers Additional Impression: Anemia Anemia type: unspecified type Qualified Codes: D64.9 - Anemia, unspecified
--- NOTE | 2017-11-24 10:47 | DIAGNOSTIC IMAGING REPORT ---
SINGLE VIEW CHEST CLINICAL HISTORY: Weakness. FINDINGS: 2 AP, portable, upright chest radiographs are compared to study dated 11/03/2017. The examination is degraded by portable technique and patient rotation. The patient is status post midline sternotomy. The heart is enlarged and there is atherosclerotic calcification of the thoracic aorta. There is pulmonary vascular congestion with evidence of interstitial edema. There are small pleural effusions with bibasilar consolidation. No pneumothorax is seen. The skeletal structures are osteopenic. The bony thorax is grossly intact. IMPRESSION: 1. Cardiomegaly with evidence of congestive failure and interstitial edema. 2. There are small pleural effusions with bibasilar consolidation. This likely represents atelectasis. Clinical correlation will be required. Electronically signed by: Song Chambers M.D. 11/24/2017 10:45 AM Dictated Date/Time: 11/24/2017 10:44 AM
[2017-11-24 11:12] LABS: BASO % 0.8 %; BASO ABS # 0.12 K/uL (0-0.2); EOS % 2.3 %; EOS ABS # 0.33 K/uL (0-0.5); HEMATOCRIT 36.1 % (42-52); HEMOGLOBIN 11.3 g/dL (14.0-18.0); IG# 0.18 K/uL (0.00-0.02); LYMPH % 8.4 %; LYMPH ABS # 1.19 K/uL (1.2-3.4); MEAN CELL VOLUME 93.3 fL (80-100); MEAN CORPUSCULAR HEMOGLOBIN 29.2 pg (25-34); MEAN CORPUSCULAR HGB CONC 31.3 g/dl (32-36); MEAN PLATELET VOLUME 10.2 fL (7.4-10.4); MONO % 8.9 %; MONO ABS # 1.26 K/uL (0.11-0.59); NEUT % 78.3 %; NEUT ABS # 11.14 K/uL (1.4-6.5); PLATELET COUNT 249 K/uL (130-400); RED CELL DISTRIBUTION WIDTH CV 15.8 % (11.5-14.5); RED CELL DISTRIBUTION WIDTH SD 53.3 fL (36.4-46.3); WHITE BLOOD COUNT 14.22 K/uL (4.8-10.8)
[2017-11-24 11:21] LABS: PTT PATIENT 30.1 SECONDS (21.0-31.0)
--- NOTE | 2017-11-24 11:39 | DIAGNOSTIC IMAGING REPORT ---
CT SCAN OF THE BRAIN WITHOUT IV CONTRAST CLINICAL HISTORY: Generalized weakness. COMPARISON STUDY: CT of the brain dated 03/30/2016. TECHNIQUE: Unenhanced axial CT scan of the brain is performed from the vertex to the skull base. A dose lowering technique was utilized adhering to the principles of ALARA. The patient was scanned twice due to motion artifact. The examination is compromised by motion. CT DOSE: 1228.53 mGy.cm FINDINGS: Brain parenchyma: The brain parenchyma is normal as visualized. There is no hemorrhage, mass effect, or evidence of acute territorial ischemia by CT criteria. Winkler-white matter is preserved. No extra-axial fluid collection is seen. Ventricles, sulci, cisterns: Normal in configuration. Intracranial vasculature: There is atherosclerotic calcification of the cavernous carotid and vertebral arteries. Calvarium: Unremarkable. Sinuses and mastoids: The visualized paranasal sinuses are clear. There is a large right mastoid effusion. The left mastoid air cells are well pneumatized. Orbits: The bony orbits are grossly intact. IMPRESSION: There is no hemorrhage, mass effect, or evidence of acute territorial ischemia by CT criteria noting a motion compromised examination. Electronically signed by: Song Chambers M.D. 11/24/2017 11:37 AM Dictated Date/Time: 11/24/2017 11:35 AM
[2017-11-24 11:43] LABS: ALKALINE PHOSPHATASE 126 U/L (45-117); ALT/SGPT 12 U/L (12-78); AST/SGOT 18 U/L (15-37); BLOOD UREA NITROGEN 10 mg/dl (7-18); CALCIUM 8.7 mg/dl (8.5-10.1); CARBON DIOXIDE 27 mmol/L (21-32); CREATININE 1.09 mg/dl (0.60-1.40); GLUCOSE 98 mg/dl (70-99); POTASSIUM 3.5 mmol/L (3.5-5.1); SODIUM 138 mmol/L (136-145); TOTAL PROTEIN 8.1 gm/dl (6.4-8.2)
--- NOTE | 2017-11-24 12:06 | DIAGNOSTIC IMAGING REPORT ---
CT SCAN OF THE LUMBAR SPINE WITHOUT IV CONTRAST CLINICAL HISTORY: Increasing low back pain. Increasing drainage status post I&D. COMPARISON STUDY: CT scan of the lumbar spine dated 11/04/2017. TECHNIQUE: CT scan of the lumbar spine is performed from the lower thoracic spine to the sacrum. Images are reviewed in the axial, sagittal, and coronal planes. IV contrast was not administered for this examination. A dose lowering technique was utilized adhering to the principles of ALARA. CT DOSE: 742.41 mGy.cm FINDINGS: The skeletal structures are osteopenic. There is no evidence of acute fracture or malalignment involving the lumbar spine. Vertebral body height and alignment are maintained. There has been laminectomy at L4-L5 with interval hardware removal as compared to 11/04/2017. The transverse processes appear intact. Anterior osteophytes are seen throughout. No lytic or blastic lesion is seen. There is no evidence of spondylolysis. There is no bony erosion or periostitis. There is advanced disc space narrowing at L5-S1. Only mild disc space narrowing is seen at the remaining lumbar levels. There is a large posterior disc osteophyte complex at L5-S1. There is no evidence of large disc herniation by CT. Although not well evaluated by CT, there is no evidence of fluid collection within the central canal. The visualized sacrum and bony pelvis appear intact noting degenerative change involving the sacroiliac joints. There is mild fatty atrophy of the paraspinous musculature. Postoperative change is seen within the posterior paraspinous soft tissues. There is a fluid collection identified within the subcutaneous fat posteriorly at the L3-L5 levels. This does not encroach upon the central canal. There are also small pockets of fluid identified at the sites were the interpedicular screws have been removed, best seen on axial image #191. This fluid is symmetric, low-attenuation, and shows peripheral calcifications. These measure up to 3.6 cm on the right and up to 4.8 cm on the left. There is advanced atherosclerotic calcification of the abdominal aorta. A 1.8 cm left adrenal adenoma is unchanged. Significant paravertebral edema is identified at the operative levels, and involving the right iliopsoas muscle. There is no evidence of fluid collection at this site on this unenhanced examination. IMPRESSION: 1. No acute osseous abnormality is identified involving the lumbar spine. 2. Osteopenia and degenerative change with evidence of interval hardware removal at L4-L5 as compared to 11/04/2017. 3. There is persistent paravertebral edema identified at L4 and L5 which also involves the right psoas muscle. The appearance remains concerning for infection. No fluid collection is seen at this site on this unenhanced examination. 4. There is a low-attenuation fluid collection identified within the posterior subcutaneous fat at the operative levels. This measures approximate 7 x 3 x 3 cm, and likely represents a seroma/hematoma. Abscess would be impossible to exclude. 5. There are small and symmetric pockets of fluid identified at the sites of the interpedicular screw removal. Although infection would be impossible to exclude this likely represents expected postoperative change. 6. Although the central canal is not well assessed by CT, there is no convincing evidence of epidural collection on this unenhanced examination. Electronically signed by: Song Chambers M.D. 11/24/2017 12:04 PM Dictated Date/Time: 11/24/2017 11:45 AM
[2017-11-24] MEDS ORDERED: FURO20TA PO (12:20)
[2017-11-24] MEDS ORDERED: DAPT500I IV (12:20)
[2017-11-24] MEDS ORDERED: TIOT1SPR INH (12:20)
[2017-11-24] MEDS ORDERED: DOCU-94 PO (12:41)
--- NOTE | 2017-11-24 15:01 | DIAGNOSTIC IMAGING REPORT ---
L VENOUS DOPP LOWER EXT UNILAT CLINICAL HISTORY: LLE swelling pain. Edema. TECHNIQUE: Venous Doppler COMPARISON STUDY: None FINDINGS: Normal study IMPRESSION: Normal study The above report was generated using voice recognition software. It may contain grammatical, syntax or spelling errors. Electronically signed by: Boni Sutton M.D. 11/24/2017 2:59 PM Dictated Date/Time: 11/24/2017 2:59 PM
[2017-11-24] MEDS ORDERED: GLUCOSE 10 TABS/TUBE PO PRN (15:15)
[2017-11-24] MEDS ORDERED: ONDANSETRON INJ 2 MG/ML 2 ML VIAL IV PRN (15:15)
[2017-11-24] MEDS ORDERED: CARBOHYDRATES FOR HYPOGLYCEMIA PO PRN (15:15)
[2017-11-24] MEDS ORDERED: GLUCAGON FOR INJ 1 MG VIAL SQ PRN (15:15)
[2017-11-24] MEDS ORDERED: DC ALL PREVIOUSLY ORDERED DIABETES MEDS ONE (15:15)
[2017-11-24] MEDS ORDERED: LEVALBUTEROL 1.25MG/3ML NEB INH PRN (15:15)
[2017-11-24] MEDS ORDERED: DEXTROSE 50% 50 ML SYR IV PRN (15:15)
[2017-11-24] MEDS ORDERED: GLUCOSE 40% GEL 15 GM TUBE PO PRN (15:15)
[2017-11-24] MEDS ORDERED: INSULIN ASPART 100 UNITS/ML 3 ML PEN SC SCH (16:00)
[2017-11-24 18:15] VITALS: BP 153/82; PULSE 90; TEMP 36.7; O2SAT 100
[2017-11-24] MEDS ORDERED: IV FLUIDS COMPLETED PRN (18:15)
[2017-11-24] MEDS ORDERED: XPNINS125 INH (18:28)
[2017-11-24 18:40] VITALS: BP 153/82; PULSE 90; TEMP 36.7; O2SAT 98; Ht 177.8 cm; Wt 94.0 kg
[2017-11-24] MEDS: TAMSULOSIN HCL 0.4 MG CAP PO SCH (21:00)
[2017-11-24] MEDS: FLUTICASONE/SALMETEROL 250/50 (ADVAIR) 14 PUFF/1 INHALER INH SCH (21:00)
[2017-11-24] MEDS ORDERED: INSULIN GLARGINE SOLOSTAR 100 UNITS/ML 3 ML PEN SC SCH (21:00)
[2017-11-24] MEDS: METOPROLOL SUCC 50MG EXT REL TAB PO SCH (21:00)
[2017-11-24] MEDS: CARBIDOPA/LEVODOPA 25/100MG TAB PO SCH (21:00)
[2017-11-24] MEDS: CARBIDOPA/LEVODOPA 50/200MG EXT REL TAB PO SCH (21:00)
[2017-11-24] MEDS: DOCUSATE SODIUM 100 MG CAP PO SCH (21:00)
[2017-11-24] MEDS: DAPTOmycin IV 500 MG in SYRINGE 0 ML IV SCH (21:35)
[2017-11-24] MEDS: SODIUM CHLORIDE 0.9% 1000ML 1,000 ML IV SCH (22:24)
--- NOTE | 2017-11-24 22:30 | History and Physical ---
History & Physical Date & Time of Service: Nov 24, 2017 at 21:55 Chief Complaint: Metabolic Encephalopathy Primary Care Physician: Jeromy Hanson M.D. History of Present Illness Source: family History obtained from discussion with ER physician and family as patient with altered mental status. Patient is a 66yo male with multiple medical problems, notably CAD s/p IA, s/p CABG x 2V in 2000 at [facility], P, DM, PAF. Patient with multiple back surgeries in the past, most recently admitted for progrssive discitis/ osteomyelitis of L4-L5 with phlegmon s/p I&D/washout, removal of hardware and placement of Vancomycin beads on 11/06. He is being treated with Daptomycin x 6 weeks. Patient was strongly urged to discharge to rehabilitation facility after his last admission but was discharged to home. Family states that he has had quite a bit of functional limitation since returning home. He has severe pain in his back as well as numbness in his legs and cramping as well as right hip pain. Patient was given Neurontin 300mg po x 1 dose last night around 11:30PM by family for increase in pain. He does not normally take this medication. His mother states that they were sitting in the living room watching TV at 0300 when patient became acutely altered. He began to slur his speech and was not interacting or following commands. Patient was to followup with Dr. Wheeler today, however, family was unable to get him up and dressed to go to the appointment. Patient was not following commands and was unable to walk. Patient's mother endorses an acute increase in the pain in his legs as of yesterday. Endorses a chronic dry cough and increase in swelling of his left foot. No additional symptoms endorsed. Past Medical/Surgical History Medical Problems: (1) Abscess in epidural space of lumbar spine (2) Acute confusional state (3) Acute on chronic diastolic (congestive) heart failure (4) Altered mental status (5) Altered mental status (6) Anemia (7) Back pain (8) Bronchitis (9) Bronchitis (10) Bulging disc (11) Chest pain (12) Chest wall pain (13) Confusion caused by a drug (14) Congestive heart failure (15) COPD (chronic obstructive pulmonary disease) (16) COPD exacerbation (17) Cough (18) Dyskinesia due to Parkinson's disease (19) Encounter for smoking cessation counseling (20) Epidural abscess (21) Fall (22) Frequent PVCs (23) Generalized weakness (24) Hallucination, drug-induced (25) Hallucinations (26) Heart disease (27) Hx MRSA infection (28) Hyperlipidemia (29) Hypertension (30) Hypoxia (31) inability to ambulate (32) Infection of lumbar spine (33) Intractable pain (34) Leukocytosis (35) Leukocytosis (36) Low back pain (37) Lumbar disc disease (38) Lumbar stenosis with neurogenic claudication (39) Need for intravenous access (40) New onset of congestive heart failure (41) New onset seizure (42) Parkinson disease (43) Parkinson's disease (44) Parkinson's disease (tremor, stiffness, slow motion, unstableposture) (45) Parkinsons disease (46) Pneumonia involving right lung (47) Post op infection (48) Pulmonary embolism (49) PVCs (premature ventricular contractions) (50) Radicular pain of right lower extremity (51) Right hip pain (52) Sciatica (53) Sciatica (54) Seizure (55) Seizure-like activity (56) Sepsis (57) Shaking (58) Shortness of breath (59) Shoulder pain (60) Substernal chest pain (61) Weakness Surgical Problems: (1) History of appendectomy (2) History of back surgery (3) S/P CABG x 2 Family History FH: heart disease Hypertension Social History Smoking Status: Current Every Day Smoker Drug Use: none Marital Status: Housing status: lives with family Occupational Status: retired, disabled Immunizations History of Influenza Vaccine: Yes Influenza Vaccine Date: Mar 07, 2007 History of Tetanus Vaccine?: Yes Tetanus Immunization Date: Jul 19, 2010 History of Pneumococcal: Yes History of Hepatitis B Vaccine: No Allergies Coded Allergies: BEE STING (Verified Allergy, Severe, ANAPHYLAXIS, 11/24/17) Triptans (Verified Allergy, Unknown, unknown, 11/24/17) Benztropine (Verified Adverse Reaction, Intermediate, hallucinations/ mental confusion, 11/24/17) Eletriptan (Verified Adverse Reaction, Intermediate, CONFUSION, 11/24/17) Ropinirole (Verified Adverse Reaction, Unknown, unknown, 11/24/17) Home Medications Scheduled Amiodarone HCl (Amiodarone HCl), 200 MG PO DAILY Amlodipine (Norvasc), 10 MG PO DAILY Aspirin (Aspirin Ec), 81 MG PO DAILY Carbidopa/Levodopa (Sinemet Cr 50MG/200MG), 1 TAB PO BID Carbidopa/Levodopa (Sinemet 25MG/100MG), 1 TAB PO QID Cholecalciferol (Vitamin D3), 1 CAP PO DAILY Daptomycin (Daptomycin), 500 MG IV DAILY Desloratadine (Clarinex), 5 MG PO DAILY Docusate Sodium (Colace), 1 CAP PO BID Duloxetine Hcl (Cymbalta), 60 MG PO DAILY Fluticasone Prop/Salmeterol (Advair Diskus 250-50 Mcg/Dose), 1 PUFF INH Q12 Hydralazine Hcl (Apresoline), 1 TAB PO TID Lubiprostone (Amitiza), 8 MCG PO DAILY Metoprolol Succ (Toprol Xl) (Toprol-Xl), 75 MG PO HS Multivitamin (Multivitamin), 1 TAB PO DAILY Pantoprazole Sodium (Protonix), 20 MG PO DAILY Polyethylene Glycol 3350 (Miralax), 17 GM PO DAILY Tamsulosin HCl (Tamsulosin HCl), 0.4 MG PO HS Tiotropium [place] (Spiriva Respimat), 2 PUFF INH DAILY Scheduled PRN Acetaminophen (Mapap), 1,000 MG PO Q8H PRN for Pain Furosemide (Lasix), 20-60 MG PO TID PRN for FLUID Levalbuterol (Levalbuterol HCl), 1.25 MG INH Q4-6HOURS PRN for SOB/Wheezing Tramadol HCl (Tramadol HCl), 50 MG PO Q6H PRN for Pain Review of Systems Unable to obtain secondary to AMS Physical Exam Vital Signs Date Time Temp Pulse Resp B/P (MAP) Pulse Ox O2 Delivery O2 Flow Rate FiO2 11/24/17 18:40 36.7 90 16 153/82 98 Nasal Cannula 3.0 11/24/17 18:15 36.7 90 16 153/82 (105) 100 Nasal Cannula 3.0 11/24/17 17:28 36.7 85 18 140/78 99 11/24/17 17:25 85 18 140/78 99 Room Air 11/24/17 16:33 84 20 91 11/24/17 16:31 143/71 11/24/17 16:20 153/84 11/24/17 16:03 82 18 98 11/24/17 16:02 140/80 11/24/17 15:33 84 20 97 11/24/17 15:31 123/92 11/24/17 15:13 86 24 131/75 97 Room Air 11/24/17 15:13 131/75 11/24/17 14:33 82 19 91 11/24/17 14:31 132/75 11/24/17 14:03 86 25 97 11/24/17 14:01 157/87 11/24/17 13:39 85 20 130/84 98 Room Air 2.0 11/24/17 13:37 130/84 11/24/17 13:33 80 17 11/24/17 13:31 194/ 11/24/17 13:29 157/115 11/24/17 13:03 82 13 97 11/24/17 13:01 137/107 11/24/17 12:33 79 27 99 11/24/17 12:31 120/92 11/24/17 12:05 80 11/24/17 12:02 80 18 129/77 99 Nasal Cannula 3.0 11/24/17 12:01 129/77 11/24/17 11:37 81 18 164/77 94 Room Air 11/24/17 11:07 78 16 144/82 93 Room Air 11/24/17 11:01 92 Room Air 11/24/17 10:12 36.7 79 16 154/92 92 Room Air 11/24/17 10:09 92 Nasal Cannula General: patient somnolent, opens eyes to deep sternal rub, following commands Skin: warm, dry, intact, hemosiderin staining of bilateral forearms, scattered ecchymoses on UE/LE bilaterally HEENT: NC/AT,pupils small, reactive to light, anicteric sclera, conjunctiva without injection, nares patent, dry mucus membranes, no oropharyngeal lesions, neck supple, trachea midline, no thyromegaly, no LAD Heart: +S1/S2, regular with ectopy, no m/r/g Lungs: coarse sonorous rhonchi bilaterally, no rales/wheezes Abdomen: soft, NT/ND, no masses/organomegaly/ascites Extremities: warm, well perfused, 1+ pitting edema bilaterally Neuro: somnolent, opens eyes to sternal rub, follows commands, moves 4 extremities with equal strength, +tremor and myoclonic jerking Diagnostics Laboratory Results Results Past 24 Hours Test 11/24/17 10:17 11/24/17 10:41 11/24/17 10:48 11/24/17 13:12 Range/Units Bedside Glucose 102 103 70-99 mg/dl White Blood Count 14.22 4.8-10.8 K/uL Red Blood Count 3.87 4.7-6.1 M/uL Hemoglobin 11.3 14.0-18.0 g/dL Hematocrit 36.1 42-52 % Mean Corpuscular Volume 93.3 80-100 fL Mean Corpuscular Hemoglobin 29.2 25-34 pg Mean Corpuscular Hemoglobin Concent 31.3 32-36 g/dl Platelet Count 249 130-400 K/uL Mean Platelet Volume 10.2 7.4-10.4 fL Neutrophils (%) (Auto) 78.3 % Lymphocytes (%) (Auto) 8.4 % Monocytes (%) (Auto) 8.9 % Eosinophils (%) (Auto) 2.3 % Basophils (%) (Auto) 0.8 % Neutrophils # (Auto) 11.14 1.4-6.5 K/uL Lymphocytes # (Auto) 1.19 1.2-3.4 K/uL Monocytes # (Auto) 1.26 0.11-0.59 K/uL Eosinophils # (Auto) 0.33 0-0.5 K/uL Basophils # (Auto) 0.12 0-0.2 K/uL RDW Standard Deviation 53.3 36.4-46.3 fL RDW Coefficient of Variation 15.8 11.5-14.5 % Immature Granulocyte % (Auto) 1.3 % Immature Granulocyte # (Auto) 0.18 0.00-0.02 K/uL Erythrocyte Sedimentation Rate 85 0-14 mm/hr Prothrombin Time 10.3 9.0-12.0 SECONDS Prothromb Time International Ratio 1.0 0.9-1.1 Activated Partial Thromboplast Time 30.1 21.0-31.0 SECONDS Partial Thromboplastin Ratio 1.2 Sodium Level 138 136-145 mmol/L Potassium Level 3.5 3.5-5.1 mmol/L Chloride Level 103 98-107 mmol/L Carbon Dioxide Level 27 21-32 mmol/L Anion Gap 8.0 3-11 mmol/L Blood Urea Nitrogen 10 7-18 mg/dl Creatinine 1.09 0.60-1.40 mg/dl Est Creatinine Clear Calc Drug Dose 74.7 ml/min Estimated GFR () 80.4 Estimated GFR (Non- 69.4 BUN/Creatinine Ratio 9.3 10-20 Random Glucose 98 70-99 mg/dl Calcium Level 8.7 8.5-10.1 mg/dl Phosphorus Level 3.0 2.5-4.9 mg/dl Magnesium Level 2.2 1.8-2.4 mg/dl Total Bilirubin 0.3 0.2-1 mg/dl Direct Bilirubin 0.1 0-0.2 mg/dl Aspartate Amino Transf (AST/SGOT) 18 15-37 U/L Alanine Aminotransferase (ALT/SGPT) 12 12-78 U/L Alkaline Phosphatase 126 45-117 U/L Total Creatine Kinase 122 39-308 U/L Troponin I < 0.015 0-0.045 ng/ml C-Reactive Protein 7.13 0-0.29 mg/dl Pro-B-Type Natriuretic Peptide 901 0-900 pg/ml Total Protein 8.1 6.4-8.2 gm/dl Albumin 3.0 3.4-5.0 gm/dl Thyroid Stimulating Hormone (TSH) 2.240 0.300-4.500 uIu/ml Salicylates Level < 1.7 2.8-20 mg/dl Acetaminophen Level < 2 10-30 ug/ml Ethyl Alcohol mg/dL < 3.0 0-3 mg/dl Venous Blood pH 7.36 7.36-7.41 Venous Blood Partial Pressure CO2 54 38.0-50.0 mmHg Venous Blood Partial Pressure O2 40 mmHg Venous Blood HCO3 30 mmol/L Venous Blood Oxygen Saturation 72.4 % Venous Blood Base Excess 3.8 mEq/L Lactic Acid Level 0.8 0.4-2.0 mmol/L Test 11/24/17 15:45 11/24/17 16:02 Range/Units Urine Color YELLOW Urine Appearance CLEAR CLEAR Urine pH 7.0 4.5-7.5 Urine Specific [place] 1.006 1.000-1.030 Urine Protein NEG NEG Urine Glucose (UA) NEG NEG Urine Ketones NEG NEG Urine Occult Blood NEG NEG Urine Nitrite NEG NEG Urine Bilirubin NEG NEG Urine Urobilinogen NEG NEG Urine Leukocyte Esterase NEG NEG Urine Opiates Screen NEG NEG Urine Methadone, Qualitative NEG NEG Urine Barbiturates NEG NEG Urine Phencyclidine (PCP) Level NEG NEG Ur Amphetamine/Methamphetamine NEG NEG MDMA (Ecstasy) Screen NEG NEG Urine Benzodiazepines Screen NEG NEG Urine Cocaine Metabolite NEG NEG Urine Marijuana (THC) NEG NEG Ammonia 28.0 11-32 umol/L Microbiology Results 11/24/17 Blood Culture, Received Pending 11/24/17 Blood Culture, Received Pending Diagnostic Radiology CT SCAN OF THE BRAIN WITHOUT IV CONTRAST CLINICAL HISTORY: Generalized weakness. COMPARISON STUDY: CT of the brain dated 03/30/2016. TECHNIQUE: Unenhanced axial CT scan of the brain is performed from the vertex to the skull base. A dose lowering technique was utilized adhering to the principles of ALARA. The patient was scanned twice due to motion artifact. The examination is compromised by motion. CT DOSE: 1228.53 mGy.cm FINDINGS: Brain parenchyma: The brain parenchyma is normal as visualized. There is no hemorrhage, mass effect, or evidence of acute territorial ischemia by CT criteria. Winkler-white matter is preserved. No extra-axial fluid collection is seen. Ventricles, sulci, cisterns: Normal in configuration. Intracranial vasculature: There is atherosclerotic calcification of the cavernous carotid and vertebral arteries. Calvarium: Unremarkable. Sinuses and mastoids: The visualized paranasal sinuses are clear. There is a large right mastoid effusion. The left mastoid air cells are well pneumatized. Orbits: The bony orbits are grossly intact. IMPRESSION: There is no hemorrhage, mass effect, or evidence of acute territorial ischemia by CT criteria noting a motion compromised examination. L VENOUS DOPP LOWER EXT UNILAT CLINICAL HISTORY: LLE swelling pain. Edema. TECHNIQUE: Venous Doppler COMPARISON STUDY: None FINDINGS: Normal study IMPRESSION: Normal study The above report was generated using voice recognition software. It may contain grammatical, syntax or spelling errors. Electronically signed by: Boni Sutton M.D. 11/24/2017 2:[address] SCAN OF THE LUMBAR SPINE WITHOUT IV CONTRAST CLINICAL HISTORY: Increasing low back pain. Increasing drainage status post I&D. COMPARISON STUDY: CT scan of the lumbar spine dated 11/04/2017. TECHNIQUE: CT scan of the lumbar spine is performed from the lower thoracic spine to the sacrum. Images are reviewed in the axial, sagittal, and coronal planes. IV contrast was not administered for this examination. A dose lowering technique was utilized adhering to the principles of ALARA. CT DOSE: 742.41 mGy.cm FINDINGS: The skeletal structures are osteopenic. There is no evidence of acute fracture or malalignment involving the lumbar spine. Vertebral body height and alignment are maintained. There has been laminectomy at L4-L5 with interval hardware removal as compared to 11/04/2017. The transverse processes appear intact. Anterior osteophytes are seen throughout. No lytic or blastic lesion is seen. There is no evidence of spondylolysis. There is no bony erosion or periostitis. There is advanced disc space narrowing at L5-S1. Only mild disc space narrowing is seen at the remaining lumbar levels. There is a large posterior disc osteophyte complex at L5-S1. There is no evidence of large disc herniation by CT. Although not well evaluated by CT, there is no evidence of fluid collection within the central canal. The visualized sacrum and bony pelvis appear intact noting degenerative change involving the sacroiliac joints. There is mild fatty atrophy of the paraspinous musculature. Postoperative change is seen within the posterior paraspinous soft tissues. There is a fluid collection identified within the subcutaneous fat posteriorly at the L3-L5 levels. This does not encroach upon the central canal. There are also small pockets of fluid identified at the sites were the interpedicular screws have been removed, best seen on axial image #191. This fluid is symmetric, low-attenuation, and shows peripheral calcifications. These measure up to 3.6 cm on the right and up to 4.8 cm on the left. There is advanced atherosclerotic calcification of the abdominal aorta. A 1.8 cm left adrenal adenoma is unchanged. Significant paravertebral edema is identified at the operative levels, and involving the right iliopsoas muscle. There is no evidence of fluid collection at this site on this unenhanced examination. IMPRESSION: 1. No acute osseous abnormality is identified involving the lumbar spine. 2. Osteopenia and degenerative change with evidence of interval hardware removal at L4-L5 as compared to 11/04/2017. 3. There is persistent paravertebral edema identified at L4 and L5 which also involves the right psoas muscle. The appearance remains concerning for infection. No fluid collection is seen at this site on this unenhanced examination. 4. There is a low-attenuation fluid collection identified within the posterior subcutaneous fat at the operative levels. This measures approximate 7 x 3 x 3 cm, and likely represents a seroma/hematoma. Abscess would be impossible to exclude. 5. There are small and symmetric pockets of fluid identified at the sites of the interpedicular screw removal. Although infection would be impossible to exclude this likely represents expected postoperative change. 6. Although the central canal is not well assessed by CT, there is no convincing evidence of epidural collection on this unenhanced examination. Electronically signed by: Song Chambers M.D. 11/24/2017 12:04 PM Dictated Date/Time: 11/24/2017 11:45 AM The status of this report is Signed. Draft = Not yet reviewed or approved by Radiologist. Signed = Reviewed and approved by Radiologist. [~ rep ct add3]] SINGLE VIEW CHEST CLINICAL HISTORY: Weakness. FINDINGS: 2 AP, portable, upright chest radiographs are compared to study dated 11/03/2017. The examination is degraded by portable technique and patient rotation. The patient is status post midline sternotomy. The heart is enlarged and there is atherosclerotic calcification of the thoracic aorta. There is pulmonary vascular congestion with evidence of interstitial edema. There are small pleural effusions with bibasilar consolidation. No pneumothorax is seen. The skeletal structures are osteopenic. The bony thorax is grossly intact. IMPRESSION: 1. Cardiomegaly with evidence of congestive failure and interstitial edema. 2. There are small pleural effusions with bibasilar consolidation. This likely represents atelectasis. Clinical correlation will be required. Electronically signed by: Song Chambers M.D. 11/24/2017 10:45 AM Dictated Date/Time: 11/24/2017 10:44 AM EKG NSR with PVCs, incomplete LBBB, prolonged QTc at 535 Impression Assessment and Plan Mr. Damon is a 66yo male with multiple medical problems with metabolic encephalopathy, somnolence 1. Metabolic encephalopathy - etiology unclear, patient was given a dose of Neurontin this AM prior to AMS, symptoms lasting quite a long time for this to be the cause. Additional workup relatively unrevealing to include normal electrolytes and renal function, normal TSH, toxicology screen and NH4, CT Head negative. Mild increase in CO2 noted. Patient with elevated WBC count, ? infectious etiology as underlying cause. ?medication effects. Elevated ESR and CRP from prior -Admit to medical floor for metabolic encephalopathy -Avoid sedating medications -Check cultures -Consider MRI Brain and spine if mental status does not improve. Patient with no focal deficits noted. 2. Back pain with Osteomyelitis/Phlegmon vs abscess - patient afebrile, hemodynamically stable. Non-septic in appearance at present. Some concern for elevated WBC count and ESR, CRP. CT L spine with fluid collection noted, possible abscess -Continue Daptomycin x 6 weeks -Follow cultures -Consultation with Orthopedic surgery, Dr. Wheeler -Tramadol and Tylenol PRN pain 3. Parkinson's Disease - stable, chronic -Continue Sinemet 25/100 1 tab QID and CR 50/200 1 tab BID. -Appears to be stable. -Patient continues to have chorea and tremors, missed his medications today. 4. COPD - stable, no respiratory distress, adequate oxygenation and ventilation on room air -Continue Xopenex PRN -Continue Advair -Continue Spiriva 5. AF - patient presently in sinus rhythm with PVCs. Not on anticoagulation -Continue Amiodarone -Continue to monitor 6. Hypertension - blood pressure stable at present -Continue Amlodipine, Hydralazine and Metoprolol 7. CAD s/p IA, s/p CABG - stable, no CP, no evidence of ischemia -Continue Metoprolol, ASA -Holding statin while on Dapto 8. LES - stable -CPAP qHS 9. DM - No report of diabetic medication on medication reconciliation. Patient became hypoglycemic during last admission. He is presently NPO secondary to AMS -Will cover with ISS q 6 hours -continue q6 hours 10. BPH - stable, chronic -Continue Flomax 11. F/E/N - [place]. Advance diet as tolerated when mental status improves, nurse dysphagia screening, aspiration precautions, montior electrolytes and replete as needed, NPO for now given AMS, advance diet as tolerated, Colace BID 12. Ppx - Lovenox and Protonix 13. Code - full per discussion with mother 14. Dispo 0- admit to medical floor Advanced Directives Existing Living Will: Yes Existing Power of Track Superintendent: Yes Resuscitation Status NSR with PVCs, incomplete LBBB, prolonged QT VTE Prophylaxis Will order VTE Prophylaxis: Yes
[2017-11-24 23:00] VITALS: BP 142/72; PULSE 84; TEMP 36.7; O2SAT 99
[2017-11-24] MEDS ORDERED: LUBI8CAP4 PO (23:41)
[2017-11-25] VITALS (8 sets, daily range): BP systolic 102–150; BP diastolic 53–79; PULSE 79–94; TEMP 36.6–36.9; O2SAT 79–98
[2017-11-25] MEDS: ACETAMINOPHEN 325 MG TAB PO PRN ×2 (04:44→14:25)
[2017-11-25] MEDS: INSULIN ASPART 100 UNITS/ML 3 ML PEN SC SCH ×5 (06:00→22:09)
[2017-11-25] MEDS: SODIUM CHLORIDE 0.9% 1000ML 1,000 ML IV SCH ×2 (06:14→16:51)
[2017-11-25] MEDS: POLYETHYLENE (MIRALAX) 17 GM PACK PO SCH (08:20)
[2017-11-25] MEDS: FLUTICASONE/SALMETEROL 250/50 (ADVAIR) 14 PUFF/1 INHALER INH SCH ×2 (08:27→20:23)
[2017-11-25] MEDS: TIOTROPIUM BROMIDE 5 PUFF/90 MCG INH INH SCH (08:28)
[2017-11-25] MEDS: ASPIRIN 81 MG ECTAB PO SCH (08:28)
[2017-11-25] MEDS: LUBIPROSTONE 8 MCG CAP PO SCH (08:29)
[2017-11-25] MEDS: AMIODARONE 200 MG TAB PO SCH (08:29)
[2017-11-25] MEDS: DULOXETINE HCL 60 MG CAP PO SCH (08:29)
[2017-11-25] MEDS: DOCUSATE SODIUM 100 MG CAP PO SCH ×2 (08:30→20:27)
[2017-11-25] MEDS: CARBIDOPA/LEVODOPA 25/100MG TAB PO SCH ×4 (08:30→20:28)
[2017-11-25] MEDS: AMLODIPINE BESYLATE 5 MG TAB PO SCH (08:30)
[2017-11-25] MEDS: PANTOprazole SOD 40 MG TAB PO SCH (08:31)
[2017-11-25] MEDS: CARBIDOPA/LEVODOPA 50/200MG EXT REL TAB PO SCH ×2 (08:32→20:28)
[2017-11-25] MEDS: CHOLECALCIFEROL 1000 INTER.UNIT TAB PO SCH (08:43)
[2017-11-25] MEDS ORDERED: DAPTOmycin 500 MG VIAL IV SCH (09:00)
[2017-11-25] MEDS ORDERED: D5W AND 1/2NSS + 20MEQ KCL 1,000 ML IV SCH (11:30)
--- NOTE | 2017-11-25 11:58 | Progress Note ---
Subjective Date of Service: Nov 25, 2017. Subjective Pt evaluation today including: conversation w/ patient, physical exam, chart review, lab review, review of studies (u/s left leg, CT back, etc), review of inpatient medication list Pain: right posterior cervical pain x 2 weeks; hurts to look to the right PO Intake: he is NPO but expresses hunger Voiding: luz catheter in place mild low back pain but not any worse than normal has cough but nonproductive he is typically not on oxygen at home has chronic tremors from parkinson's I asked him if his speech was different than normal - he stated "no" has had intermittent headaches of late but the temporal regions are not painful no jaw pain or claudication denies cp Problem List Medical Problems: (1) Altered mental status Status: Acute (2) Altered mental status Status: Acute (3) Anemia Status: Acute (4) Congestive heart failure Status: Acute (5) Cough Status: Acute (6) Dyskinesia due to Parkinson's disease Status: Acute (7) Encounter for smoking cessation counseling Status: Acute (8) Epidural abscess Status: Acute (9) Generalized weakness Status: Acute (10) Intractable pain Status: Acute (11) Leukocytosis Status: Acute (12) Leukocytosis Status: Acute (13) Low back pain Status: Acute (14) Lumbar disc disease Status: Acute (15) Metabolic encephalopathy Status: Acute (16) Need for intravenous access Status: Acute (17) New onset of congestive heart failure Status: Acute (18) New onset seizure Status: Acute (19) Parkinson's disease Status: Acute (20) Parkinson's disease (tremor, stiffness, slow motion, unstableposture) Status: Acute (21) Post op infection Status: Acute (22) Right hip pain Status: Acute (23) Sciatica Status: Acute (24) Sciatica Status: Acute (25) Sepsis Status: Acute (26) Shaking Status: Acute (27) Shortness of breath Status: Acute (28) Substernal chest pain Status: Acute Review of Systems Constitutional: No fever, No chills Respiratory: No shortness of breath, No dyspnea at rest, No hemoptysis Cardiac: No chest pain, No orthopnea Abdomen: No pain Male : No dysuria Objective Vital Signs Date Time Temp Pulse Resp B/P (MAP) Pulse Ox O2 Delivery O2 Flow Rate FiO2 8/8/18 08:18 98 Nasal Cannula 3.0 11/25/17 08:00 Nasal Cannula 3.0 11/25/17 07:31 36.6 80 20 150/79 (102) 98 Room Air 11/25/17 00:30 Nasal Cannula 3.0 11/24/17 23:00 36.7 84 20 142/72 (95) 99 Nasal Cannula 3.0 11/24/17 18:40 36.7 90 16 153/82 98 Nasal Cannula 3.0 11/24/17 18:30 Nasal Cannula 3.0 11/24/17 18:15 36.7 90 16 153/82 (105) 100 Nasal Cannula 3.0 11/24/17 17:28 36.7 85 18 140/78 99 11/24/17 17:25 85 18 140/78 99 Room Air 11/24/17 16:33 84 20 91 11/24/17 16:31 143/71 11/24/17 16:20 153/84 11/24/17 16:03 82 18 98 11/24/17 16:02 140/80 11/24/17 15:33 84 20 97 11/24/17 15:31 123/92 11/24/17 15:13 86 24 131/75 97 Room Air 11/24/17 15:13 131/75 11/24/17 14:33 82 19 91 11/24/17 14:31 132/75 11/24/17 14:03 86 25 97 11/24/17 14:01 157/87 11/24/17 13:39 85 20 130/84 98 Room Air 2.0 11/24/17 13:37 130/84 11/24/17 13:33 80 17 11/24/17 13:31 194/ 11/24/17 13:29 157/115 11/24/17 13:03 82 13 97 11/24/17 13:01 137/107 11/24/17 12:33 79 27 99 11/24/17 12:31 120/92 11/24/17 12:05 80 11/24/17 12:02 80 18 129/77 99 Nasal Cannula 3.0 11/24/17 12:01 129/77 11/24/17 11:37 81 18 164/77 94 Room Air Physical Exam General Appearance: no apparent distress, + pertinent finding (looks older than stated age; severe tremors) ENT: pharynx normal, + pertinent finding (no tenderness over either temporal artery) Neck: no JVD, + pertinent finding (tender paraspinal region, cervical neck, posteriorly; also with passive rotation this causes pain) Respiratory/Chest: no respiratory distress, no accessory muscle use, + rales ( minimal bases), + wheezing (mild) Cardiovascular: regular rate, rhythm, no gallop, no murmur Abdomen: normal bowel sounds, non tender, soft, no organomegaly Extremities: no pedal edema, + pertinent finding (PICC, LUE - clean) Neurologic/Psychiatric: no motor/sensory deficits (strength 5/5 x 4 exts), alert, + disoriented (knows he is at [facility] but thought it was Nov 29), + pertinent finding (tremors) Skin: no rash Laboratory Results Last 24 Hours Test 11/24/17 13:12 11/24/17 15:45 11/24/17 16:02 11/24/17 23:51 Venous Blood pH 7.36 Venous Blood Partial Pressure CO2 54 mmHg Venous Blood Partial Pressure O2 40 mmHg Venous Blood HCO3 30 mmol/L Venous Blood Oxygen Saturation 72.4 % Venous Blood Base Excess 3.8 mEq/L Lactic Acid Level 0.8 mmol/L Urine Color YELLOW Urine Appearance CLEAR Urine pH 7.0 Urine Specific [place] 1.006 Urine Protein NEG Urine Glucose (UA) NEG Urine Ketones NEG Urine Occult Blood NEG Urine Nitrite NEG Urine Bilirubin NEG Urine Urobilinogen NEG Urine Leukocyte Esterase NEG Urine Opiates Screen NEG Urine Methadone, Qualitative NEG Urine Barbiturates NEG Urine Phencyclidine (PCP) Level NEG Ur Amphetamine/Methamphetamine NEG MDMA (Ecstasy) Screen NEG Urine Benzodiazepines Screen NEG Urine Cocaine Metabolite NEG Urine Marijuana (THC) NEG Ammonia 28.0 umol/L Bedside Glucose 80 mg/dl Test 11/25/17 05:57 Bedside Glucose 77 mg/dl Assessment and Plan 66yo male - 1. altered mental status / encephalopathy - during my assessment he was still mildly confused but awake, alert, and could answer ?'s and follow commands. At this point the 1 dose of gabapentin taken 2 nights ago is out of his system. With his leukocytosis and elevated sed rate he likely has an infectious or inflammatory condition contributing to his mental status. see below. 2. 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 Awaiting repeat blood cx's. MRI lumbar spine ordered by ortho/spine service. There is a seroma/hematoma on CT lumbar spine - will simply await MRI to determine if there is any infectious issue in that region. Pain control in meantime. 3. cervical spine pain x 2 weeks - in light of the above will obtain MRI c- spine w/ contrast - r/o diskitis, abscess, etc. 4. abnormal cxr with hypoxia - he clinically doesn't appear to be in CHF. Will simply repeat the cxr and go from there. 5. parkinson's disease - continue outpatient medications. 6. HTN - continue outpatient medications. 7. elevated sed rate - this is WORSE in comparison to last sed rate in October. Diff dx - recurrent infectious process in lumbar spine; new infectious process in cervical spine; inflammatory condition like temporal arteritis given his headaches, etc; pneumonia; vs other. No evidence of UTI on u/a. 8. PAF - in NSR; does not take anticoagulation. Continue amiodarone to maintain NSR. 9. CAD s/p DE, s/p CABG x 2V in 2000 at [place] - noted; continue usual cardiac meds including asa and beta jair. 10. T2DM - controlled, in fact borderline low sugars while fasting. May need dextrose supplementation in fluids. 11. ?dysphagia - if present this is due to his parkinson's. Speech eval. 12. DVT proph - add heparin TID. 13. LES - HS CPAP. 14. BPH - flomax. In my clinical judgment this beneficiary meets acute admission criteria, established by [facility], that includes being hospitalized through two midnights. Thus change to full admission status. Continued [facility] stay due to: voiding difficulties, ambulation difficulties, multiple IV medications needed Discharge planning: uncertain
--- NOTE | 2017-11-25 12:09 | DIAGNOSTIC IMAGING REPORT ---
SINGLE VIEW CHEST CLINICAL HISTORY: Follow-up CHF. FINDINGS: An AP, portable, upright chest radiograph is compared to study dated 11/24/2017. The examination is degraded by portable technique, apical lordotic positioning, and patient rotation. The patient is status post midline sternotomy. The heart is enlarged and there is atherosclerotic calcification of the thoracic aorta. There is mild pulmonary vascular congestion, which has improved from yesterday. Chronic elevation of the right hemidiaphragm is unchanged. There are small pleural effusions with bibasilar atelectasis. No pneumothorax is seen. The skeletal structures are osteopenic. The bony thorax is grossly intact. IMPRESSION: 1. Cardiomegaly with mild pulmonary vascular congestion. This has improved from yesterday. 2. Small pleural effusions are identified. Electronically signed by: Song Chambers M.D. 11/25/2017 12:08 PM Dictated Date/Time: 11/25/2017 12:07 PM
[2017-11-25] MEDS ORDERED: NURSING VERBAL MED ORDER ONE ×2 (14:15→14:45)
[2017-11-25] MEDS: HEPARIN SOD 5000 UNIT/0.5 ML CARP SQ SCH ×2 (14:23→22:38)
[2017-11-25] MEDS: TRAMADOL HCL 50 MG TAB PO PRN (16:14)
[2017-11-25] MEDS ORDERED: DIAZEPAM 5MG TAB PO SCH (17:15)
[2017-11-25] MEDS: DAPTOmycin IV 500 MG in SYRINGE 0 ML IV SCH (20:22)
[2017-11-25] MEDS: METOPROLOL SUCC 50MG EXT REL TAB PO SCH (20:29)
[2017-11-25] MEDS: TAMSULOSIN HCL 0.4 MG CAP PO SCH (20:30)
--- NOTE | 2017-11-25 21:40 | DIAGNOSTIC IMAGING REPORT ---
LUMBAR SPINE W/O CONTRAST HISTORY: Pain EVAL FOR ABSCESS; RECENT I D TECHNIQUE: Multiplanar multisequence MRI of the lumbar spine was performed without the use of contrast. COMPARISON: CT 11/24/2017. MRI 09/04/2015. FINDINGS: For the purpose of the report the L5-S1 disc space will be located on axial image 27 of 30. Interval removal of the hardware at the L4-L5 level. Sagittal images suggest diminished signal characteristics of the inferior aspect of L4, the superior aspect of L5, as well as an abnormal increase in signal on the sagittal T2 images at L4-L5. L1-L2: No significant central canal or neural foraminal narrowing. L2-L3: Minimal broad-based disc bulge L3-L4: Mild broad-based bulging disc. Posterior soft tissue edematous change with a small amount of fluid surrounding the spinous process of L3 L4-L5: Severe multifactorial spinal stenosis. Soft tissue edematous change involving the right to lesser extent left medial psoas musculature. Posterior edematous tissue most likely a postoperative basis. L5-S1: Central posterior osteophyte formation. Mild secondary narrowing of the spinal canal. Minimal narrowing of the neuroforamina bilaterally. IMPRESSION: 1. Abnormal signal characteristics involving L4 and L5. 2. This represents an interval change from prior studies. 3. The Possibility of discitis with secondary osteomyelitis of the adjacent vertebral endplates at L4-L5 is considered. 4. Several small scattered fluid pockets are present although a major collection is not identified. Edematous tissue posterior to the hardware removal sites at L4 and L5 posteriorly most likely on a postoperative basis. 5. High-grade multifactorial spinal stenosis L4-L5. The above report was generated using voice recognition software. It may contain grammatical, syntax or spelling errors. Electronically signed by: Boni Sutton M.D. 11/25/2017 9:39 PM Dictated Date/Time: 11/25/2017 9:32 PM
[2017-11-26] MEDS: HEPARIN SOD 5000 UNIT/0.5 ML CARP SQ SCH ×3 (05:44→21:06)
[2017-11-26 07:50] LABS: BASO % 1.5 %; BASO ABS # 0.18 K/uL (0-0.2); EOS % 2.9 %; EOS ABS # 0.35 K/uL (0-0.5); HEMOGLOBIN 9.4 g/dL (14.0-18.0); LYMPH ABS # 2.43 K/uL (1.2-3.4); MEAN CELL VOLUME 93.2 fL (80-100); MEAN CORPUSCULAR HEMOGLOBIN 29.2 pg (25-34); MEAN CORPUSCULAR HGB CONC 31.3 g/dl (32-36); MEAN PLATELET VOLUME 9.6 fL (7.4-10.4); MONO % 10.8 %; MONO ABS # 1.31 K/uL (0.11-0.59); NEUT ABS # 7.78 K/uL (1.4-6.5); PLATELET COUNT 214 K/uL (130-400); RED CELL DISTRIBUTION WIDTH CV 16.2 % (11.5-14.5); RED CELL DISTRIBUTION WIDTH SD 54.9 fL (36.4-46.3); WHITE BLOOD COUNT 12.15 K/uL (4.8-10.8)
[2017-11-26 07:57] VITALS: BP 161/61; PULSE 74; TEMP 36.9; O2SAT 93
[2017-11-26] MEDS: SODIUM CHLORIDE 0.9% 1000ML 1,000 ML IV SCH ×2 (08:06→18:35)
[2017-11-26] MEDS: TRAMADOL HCL 50 MG TAB PO PRN ×2 (08:08→18:34)
[2017-11-26 08:14] VITALS: O2SAT 93
[2017-11-26 08:24] LABS: CALCIUM 8.4 mg/dl (8.5-10.1); CREATININE 1.2 mg/dl (0.60-1.40); POTASSIUM 3.7 mmol/L (3.5-5.1)
[2017-11-26] MEDS: POLYETHYLENE (MIRALAX) 17 GM PACK PO SCH (09:00)
[2017-11-26] MEDS: CARBIDOPA/LEVODOPA 25/100MG TAB PO SCH ×4 (09:05→21:09)
[2017-11-26] MEDS: LUBIPROSTONE 8 MCG CAP PO SCH (09:05)
[2017-11-26] MEDS: FLUTICASONE/SALMETEROL 250/50 (ADVAIR) 14 PUFF/1 INHALER INH SCH ×2 (09:05→20:56)
[2017-11-26] MEDS: CHOLECALCIFEROL 1000 INTER.UNIT TAB PO SCH (09:06)
[2017-11-26] MEDS: ASPIRIN 81 MG ECTAB PO SCH (09:06)
[2017-11-26] MEDS: CARBIDOPA/LEVODOPA 50/200MG EXT REL TAB PO SCH ×2 (09:06→21:07)
[2017-11-26] MEDS: AMLODIPINE BESYLATE 5 MG TAB PO SCH (09:06)
[2017-11-26] MEDS: AMIODARONE 200 MG TAB PO SCH (09:07)
[2017-11-26] MEDS: DULOXETINE HCL 60 MG CAP PO SCH (09:07)
[2017-11-26] MEDS: DOCUSATE SODIUM 100 MG CAP PO SCH ×2 (09:07→21:00)
[2017-11-26] MEDS: PANTOprazole SOD 40 MG TAB PO SCH (09:08)
[2017-11-26] MEDS: TIOTROPIUM BROMIDE 5 PUFF/90 MCG INH INH SCH (09:11)
[2017-11-26] MEDS: INSULIN ASPART 100 UNITS/ML 3 ML PEN SC SCH ×4 (09:15→21:00)
--- NOTE | 2017-11-26 09:37 | Orthopedic Consultation ---
Orthopedic Consultation Date of Consultation: Nov 26, 2017. Attending Physician: Shayne Rosen MD Reason for Consultation: Lethargy status post I&D of the lumbar spine History of Present Illness Patient today states he is comfortable. He is in the chair at the bedside. He believes that his back pain is well controlled with occasional soreness. He describes a generalized weakness. He is concerned regarding some swelling in his neck. He denies any leg pain. Denies any nausea vomiting. Denies any recent fevers chills. Past Medical/Surgical History Medical Problems: (1) Altered mental status Status: Acute (2) Altered mental status Status: Acute (3) Anemia Status: Acute (4) Congestive heart failure Status: Acute (5) Cough Status: Acute (6) Dyskinesia due to Parkinson's disease Status: Acute (7) Encounter for smoking cessation counseling Status: Acute (8) Epidural abscess Status: Acute (9) Generalized weakness Status: Acute (10) Intractable pain Status: Acute (11) Leukocytosis Status: Acute (12) Leukocytosis Status: Acute (13) Low back pain Status: Acute (14) Lumbar disc disease Status: Acute (15) Metabolic encephalopathy Status: Acute (16) Need for intravenous access Status: Acute (17) New onset of congestive heart failure Status: Acute (18) New onset seizure Status: Acute (19) Parkinson's disease Status: Acute (20) Parkinson's disease (tremor, stiffness, slow motion, unstableposture) Status: Acute (21) Post op infection Status: Acute (22) Right hip pain Status: Acute (23) Sciatica Status: Acute (24) Sciatica Status: Acute (25) Sepsis Status: Acute (26) Shaking Status: Acute (27) Shortness of breath Status: Acute (28) Substernal chest pain Status: Acute Family History FH: heart disease Hypertension Social History Smoking Status: Current Every Day Smoker Drug Use: none Marital Status: Housing Status: assisted living Occupation Status: retired, disabled Allergies Coded Allergies: BEE STING (Verified Allergy, Severe, ANAPHYLAXIS, 11/24/17) Triptans (Verified Allergy, Unknown, unknown, 11/24/17) Benztropine (Verified Adverse Reaction, Intermediate, hallucinations/ mental confusion, 11/24/17) Eletriptan (Verified Adverse Reaction, Intermediate, CONFUSION, 11/24/17) Ropinirole (Verified Adverse Reaction, Unknown, unknown, 11/24/17) Home Medications Scheduled Amiodarone HCl (Amiodarone HCl), 200 MG PO DAILY Amlodipine (Norvasc), 10 MG PO DAILY Aspirin (Aspirin Ec), 81 MG PO DAILY Carbidopa/Levodopa (Sinemet Cr 50MG/200MG), 1 TAB PO BID Carbidopa/Levodopa (Sinemet 25MG/100MG), 1 TAB PO QID Cholecalciferol (Vitamin D3), 1 CAP PO DAILY Daptomycin (Daptomycin), 500 MG IV DAILY Desloratadine (Clarinex), 5 MG PO DAILY Docusate Sodium (Colace), 1 CAP PO BID Duloxetine Hcl (Cymbalta), 60 MG PO DAILY Fluticasone Prop/Salmeterol (Advair Diskus 250-50 Mcg/Dose), 1 PUFF INH Q12 Hydralazine Hcl (Apresoline), 1 TAB PO TID Lubiprostone (Amitiza), 8 MCG PO DAILY Metoprolol Succ (Toprol Xl) (Toprol-Xl), 75 MG PO HS Multivitamin (Multivitamin), 1 TAB PO DAILY Pantoprazole Sodium (Protonix), 20 MG PO DAILY Polyethylene Glycol 3350 (Miralax), 17 GM PO DAILY Tamsulosin HCl (Tamsulosin HCl), 0.4 MG PO HS Tiotropium Hamilton (Spiriva Respimat), 2 PUFF INH DAILY Scheduled PRN Acetaminophen (Mapap), 1,000 MG PO Q8H PRN for Pain Furosemide (Lasix), 20-60 MG PO TID PRN for FLUID Levalbuterol (Levalbuterol HCl), 1.25 MG INH Q4-6HOURS PRN for SOB/Wheezing Tramadol HCl (Tramadol HCl), 50 MG PO Q6H PRN for Pain Current Inpatient Medications Current Inpatient Medications Medications (Trade) Dose Ordered Sig/Igor Route Start Time Stop Time Status Last Admin Dose Admin Acetaminophen (Tylenol Tab) 650 mg Q4H PRN PO 11/24/17 15:15 12/24/17 15:14 11/25/17 14:25 650 MG Glucose (Glucose 40% Gel) 15-30 GRAMS 15 GRAMS... UD PRN PO 11/24/17 15:15 12/24/17 15:14 Glucose (Glucose Chew Tab) 4-8 Tablets 4 Tabl... UD PRN PO 11/24/17 15:15 12/24/17 15:14 Dextrose (Dextrose 50% 50ML Syringe) 25-50ML 25ML FOR ... UD PRN IV 11/24/17 15:15 12/24/17 15:14 Glucagon (Glucagon Inj) 1 mg UD PRN SQ 11/24/17 15:15 12/24/17 15:14 Carbohydrates (Carbohydrates For Hypoglycemia) 15-30 GRAMS 15 grams if BSG 54-69... UD PRN PO 11/24/17 15:15 12/24/17 15:14 Amiodarone HCl (Cordarone Tab) 200 mg DAILY PO 11/25/17 09:00 12/25/17 08:59 11/26/17 09:07 200 MG Amlodipine Besylate (Norvasc Tab) 10 mg DAILY PO 11/25/17 09:00 12/25/17 08:59 11/26/17 09:06 10 MG Aspirin (Ecotrin Tab) 81 mg DAILY PO 11/25/17 09:00 12/25/17 08:59 11/26/17 09:06 81 MG Carbidopa/Levodopa (Sinemet 25/ 100MG Tab) 1 tab QID PO 11/24/17 21:00 12/24/17 20:59 11/26/17 09:05 1 TAB Carbidopa/Levodopa (Sinemet Cr 50/ 200MG Tab) 1 tab BID PO 11/24/17 21:00 12/24/17 20:59 11/26/17 09:06 1 TAB Docusate Sodium (coLACE CAP) 100 mg BID PO 11/24/17 21:00 12/24/17 20:59 11/26/17 09:07 100 MG Duloxetine HCl (Cymbalta Cap) 60 mg DAILY PO 11/25/17 09:00 12/25/17 08:59 11/26/17 09:07 60 MG Salmeterol Xinafoate/ Fluticasone (Advair Diskus 250/50 Inh) 1 puff Q12 INH 11/24/17 21:00 12/24/17 20:59 11/26/17 09:05 1 PUFF Hydralazine HCl (Apresoline Tab) 100 mg TID PO 11/24/17 21:00 12/24/17 20:59 11/26/17 09:08 100 MG Levalbuterol (Xopenex 1.25MG/ 3ML Neb) 1.25 mg Q4 PRN INH 11/24/17 15:15 12/24/17 15:14 Metoprolol Succinate (Toprol Xl Tab) 75 mg HS PO 11/24/17 21:00 12/24/17 20:59 11/25/17 20:29 75 MG Tamsulosin HCl (Flomax Cap) 0.4 mg HS PO 11/24/17 21:00 12/24/17 20:59 11/25/17 20:30 0.4 MG Tramadol HCl (Ultram Tab) 50 mg Q6H PRN PO 11/24/17 15:15 12/24/17 15:14 11/26/17 08:08 50 MG Cholecalciferol (Vitamin D Tab) 2,000 inter.unit DAILY PO 11/25/17 09:00 12/25/17 08:59 11/26/17 09:06 2,000 INTER.UNIT Miscellaneous Information (Order Awaiting Action) 1 ea QS N/A 11/24/17 16:00 12/24/17 15:59 Lubiprostone (Amitiza) 8 mcg DAILY PO 11/25/17 09:00 12/25/17 08:59 11/26/17 09:05 8 MCG Pantoprazole Sodium (Protonix Tab) 20 mg DAILY PO 11/25/17 09:00 12/25/17 08:59 11/26/17 09:08 20 MG Polyethylene (Miralax Powder Packet) 17 gm DAILY PO 11/25/17 09:00 12/25/17 08:59 Miscellaneous Information (Order Awaiting Action) 1 ea QS N/A 11/25/17 00:00 12/25/17 00:00 Miscellaneous (Iv Fluids Completed) 1 ea PRN PRN N/A 11/24/17 18:15 11/24/18 18:14 Daptomycin 500 mg/ Syringe 10 ml @ 5 mls/min Q24H IV 11/24/17 20:00 18 19:59 11/25/17 20:22 5 MLS/MIN Tiotropium Hamilton (Spiriva Handihaler Inhaler) 1 puff QAM INH 11/25/17 09:00 12/25/17 08:59 11/26/17 09:11 1 PUFF Heparin Sodium (Porcine) (Heparin 10 Unit/ ml 5 ml Flush) 5 ml PRN PRN FLUSH 11/25/17 09:00 12/25/17 08:59 11/25/17 20:31 5 ML Heparin Sodium (Porcine) (Heparin Sq 5000 Unit/0.5ml) 5,000 unit Q8 SQ 11/25/17 14:00 12/25/17 13:59 11/26/17 05:44 5,000 UNIT Insulin Aspart (novoLOG ASPART) SLIDING SCALE If C... ACHS SC 11/25/17 17:15 12/25/17 17:14 11/26/17 09:15 5 UNITS Sodium Chloride 1,000 ml @ 75 mls/hr [id number] IV 11/25/17 14:45 12/25/17 14:44 11/26/17 08:06 75 MLS/HR Physical Exam Date Time Temp Pulse Resp B/P (MAP) Pulse Ox O2 Delivery O2 Flow Rate FiO2 11/26/17 08:14 93 Room Air 11/26/17 07:57 36.9 74 18 161/61 (94) 93 Room Air 11/25/17 23:45 Room Air 11/25/17 22:49 36.9 79 16 133/73 (93) 94 Room Air 11/25/17 20:26 79 139/64 (89) 11/25/17 16:00 Nasal Cannula 3.0 11/25/17 15:13 94 Nasal Cannula 3.0 11/25/17 15:10 36.8 88 22 118/53 (74) 79 Nasal Cannula 3.0 11/25/17 14:07 94 102/54 (70) 11/25/17 12:04 36.7 91 20 129/67 (87) 97 Nasal Cannula 3.0 On exam patient is sitting in the chair at the bedside. Is reasonable strength testing. He has some palpable nodes in the submandibular region. Once skin incision lumbar spine is well-healed there is no erythema there is no drainage it is nontender to palpation. Laboratory Results Last 24 Hours Test 11/25/17 12:05 11/25/17 17:01 11/25/17 22:08 11/26/17 07:37 Bedside Glucose 100 mg/dl 100 mg/dl 77 mg/dl White Blood Count 12.15 K/uL Red Blood Count 3.22 M/uL Hemoglobin 9.4 g/dL Hematocrit 30.0 % Mean Corpuscular Volume 93.2 fL Mean Corpuscular Hemoglobin 29.2 pg Mean Corpuscular Hemoglobin Concent 31.3 g/dl Platelet Count 214 K/uL Mean Platelet Volume 9.6 fL Neutrophils (%) (Auto) 64.0 % Lymphocytes (%) (Auto) 20.0 % Monocytes (%) (Auto) 10.8 % Eosinophils (%) (Auto) 2.9 % Basophils (%) (Auto) 1.5 % Neutrophils # (Auto) 7.78 K/uL Lymphocytes # (Auto) 2.43 K/uL Monocytes # (Auto) 1.31 K/uL Eosinophils # (Auto) 0.35 K/uL Basophils # (Auto) 0.18 K/uL RDW Standard Deviation 54.9 fL RDW Coefficient of Variation 16.2 % Immature Granulocyte % (Auto) 0.8 % Immature Granulocyte # (Auto) 0.10 K/uL Sodium Level 139 mmol/L Potassium Level 3.7 mmol/L Chloride Level 106 mmol/L Carbon Dioxide Level 27 mmol/L Anion Gap 6.0 mmol/L Blood Urea Nitrogen 11 mg/dl Creatinine 1.20 mg/dl Est Creatinine Clear Calc Drug Dose 67.8 ml/min Estimated GFR () 71.6 Estimated GFR (Non- 61.8 BUN/Creatinine Ratio 9.3 Random Glucose 86 mg/dl Calcium Level 8.4 mg/dl Test 11/26/17 08:05 Bedside Glucose 118 mg/dl Assessment & Plan Assessment status post I&D lumbar spine secondary to infection. Plan at this time I am concerned that he may require an anterior lumbar debridement. This would have to be performed at a tertiary care center. Nevertheless at this point he seems stable. Our concerns reside in the increased sed rate since his last visit as well as MRI findings of continued discitis at the 4 5 level. Clinically however at this a.m. he is stable. We are obtaining an MRI of the cervical spine will wait these results.
[2017-11-26] MEDS ORDERED: NURSING VERBAL MED ORDER ONE (11:00)
[2017-11-26] MEDS ORDERED: LORAZEPAM INJ 0.5 MG in SYRINGE 0.75 ML IV SCH (12:00)
[2017-11-26 13:54] VITALS: BP 118/52; PULSE 80
[2017-11-26 15:14] VITALS: BP 131/60; PULSE 85; TEMP 36.7; O2SAT 96
[2017-11-26] MEDS ORDERED: GADAVIST IV PRN (16:30)
--- NOTE | 2017-11-26 17:20 | DIAGNOSTIC IMAGING REPORT ---
MRI OF THE CERVICAL SPINE COMBO CLINICAL HISTORY: Right-sided neck pain. COMPARISON STUDY: CT scan of the cervical spine dated 11/03/2015. TECHNIQUE: MRI of the cervical spine is performed utilizing various T1 and T2-weighted sequences in the axial and sagittal planes. Contrast-enhanced sequences were acquired following the IV administration of 9 cc of Gadavist. The examination is significantly degraded by motion artifact. FINDINGS: Cervical spine: Vertebral body height is maintained throughout the cervical spine. There is 5 mm of anterolisthesis at C5-C6. Alignment is otherwise preserved. There is straightening of the cervical lordosis, with reversal centered at C5-C6. The atlantodental articulation appears maintained. The spinous processes are intact as visualized. Chronic degenerative endplate change is seen at C6-C7 and C7-T1. No destructive bony lesion is identified. Small anterior osteophytes are seen throughout. Intervertebral discs: Degenerative disc desiccation and loss of height are seen throughout the cervical spine. Loss of height is moderate to severe at C5-C6 and C6-C7. Spinal cord: The cervical spinal cord is normal in morphology and signal intensity. No abnormal enhancement is seen on the postcontrast sequences. C2-C3: A tiny posterior disc osteophyte complex effaces the ventral subarachnoid space. Mild facet arthropathy is of no consequence. The neural foramina are patent. C3-C4: A posterior disc osteophyte complex effaces the ventral cord. Uncovertebral and facet arthropathy causes moderate bilateral neural foraminal stenosis. C4-C5: A posterior disc osteophyte complex abuts the ventral cord. Uncovertebral and facet arthropathy causes severe right and moderate to severe left neural foraminal stenosis. C5-C6: A posterior disc osteophyte complex abuts the ventral cord. Uncovertebral and facet arthropathy causes severe left and moderate to severe right neural foraminal stenosis. C6-C7: A posterior disc osteophyte complex effaces the ventral cord. Uncovertebral and facet arthropathy causes moderate to severe bilateral neural foraminal stenosis. C7-T1: Unremarkable. Soft tissues: The prevertebral and paraspinous soft tissues are normal as imaged. A sebaceous cyst is suggested in the left lateral neck. Brain parenchyma: The partially imaged brain parenchyma at the skull base is normal as imaged. IMPRESSION: 1. Motion compromised examination. 2. Moderate multilevel cervical spondylosis, as detailed above. See discussion for detailed level by level analysis. 3. The cervical spinal cord is normal in morphology and signal intensity. 4. Grade 1 anterolisthesis is again seen at C5-C6, similar to the 2016 CT scan. Dictated: 11/26/2017 4:39 PM Transcribed: 11/26/2017 5:19 PM ALAN_[email or web address] Electronically signed by: Song Chambers M.D. 11/26/2017 5:53 PM Dictated Date/Time: 11/26/2017 4:39 PM
[2017-11-26 21:01] VITALS: BP 146/67; PULSE 88
[2017-11-26] MEDS: DAPTOmycin IV 500 MG in SYRINGE 0 ML IV SCH (21:02)
[2017-11-26] MEDS: METOPROLOL SUCC 50MG EXT REL TAB PO SCH (21:03)
[2017-11-26] MEDS: TAMSULOSIN HCL 0.4 MG CAP PO SCH (21:08)
[2017-11-26 23:24] VITALS: BP 146/66; PULSE 87; TEMP 36.7; O2SAT 88
[2017-11-27] VITALS (9 sets, daily range): BP systolic 108–146; BP diastolic 50–80; PULSE 77–92; TEMP 36.4–36.7; O2SAT 93–95
--- NOTE | 2017-11-27 00:49 | Progress Note ---
Subjective Date of Service: Nov 26, 2017. Subjective Pt evaluation today including: conversation w/ patient, conversation w/ family ( by phone), physical exam, chart review, lab review, review of studies ( cervical spine MRI), conversation w/ showroom consultant (ortho - Dr Wheeler), review of inpatient medication list Pain: right posterior neck, minimal lumbar spine PO Intake: improved Voiding: no voiding problems patient states "I feel better today" less confusion and he feels back to normal Problem List Medical Problems: (1) Altered mental status Status: Acute (2) Altered mental status Status: Acute (3) Anemia Status: Acute (4) Congestive heart failure Status: Acute (5) Cough Status: Acute (6) Dyskinesia due to Parkinson's disease Status: Acute (7) Encounter for smoking cessation counseling Status: Acute (8) Epidural abscess Status: Acute (9) Generalized weakness Status: Acute (10) Intractable pain Status: Acute (11) Leukocytosis Status: Acute (12) Leukocytosis Status: Acute (13) Low back pain Status: Acute (14) Lumbar disc disease Status: Acute (15) Metabolic encephalopathy Status: Acute (16) Need for intravenous access Status: Acute (17) New onset of congestive heart failure Status: Acute (18) New onset seizure Status: Acute (19) Parkinson's disease Status: Acute (20) Parkinson's disease (tremor, stiffness, slow motion, unstableposture) Status: Acute (21) Post op infection Status: Acute (22) Right hip pain Status: Acute (23) Sciatica Status: Acute (24) Sciatica Status: Acute (25) Sepsis Status: Acute (26) Shaking Status: Acute (27) Shortness of breath Status: Acute (28) Substernal chest pain Status: Acute Review of Systems Constitutional: No fever, No chills Respiratory: No cough, No shortness of breath, No dyspnea on exertion Cardiac: No chest pain Abdomen: No pain Objective Vital Signs Date Time Temp Pulse Resp B/P (MAP) Pulse Ox O2 Delivery O2 Flow Rate FiO2 11/27/17 00:00 94 Room Air 11/26/17 23:24 36.7 87 20 146/66 (92) 88 Room Air 11/26/17 21:01 88 146/67 (93) 11/26/17 15:30 Room Air CPAP 11/26/17 15:14 36.7 85 18 131/60 (83) 96 8/9/18 13:54 80 118/52 (74) 11/26/17 08:14 93 Room Air 11/26/17 07:57 36.9 74 18 161/61 (94) 93 Room Air 11/26/17 07:35 Room Air Physical Exam General Appearance: no apparent distress, + pertinent finding (severe tremors and uncontrollable movements due to parkinson's) ENT: pharynx normal Neck: no JVD, + pertinent finding (I still do not appreciate any lymphadenopathy or mass of the anterior or posterior neck (very tiny sebaceous cyst left paraspinal neck region posteriorly)) Respiratory/Chest: lungs clear, no respiratory distress, no accessory muscle use Cardiovascular: regular rate, rhythm, no gallop, no murmur Abdomen: normal bowel sounds, non tender, soft, no organomegaly Extremities: no pedal edema Neurologic/Psychiatric: alert, oriented x 3, + pertinent finding (severe tremors of the upper limbs and neck) Skin: + pertinent finding (lumbar spine - midline incision clean, intact, no redness; there is a retained suture in the superior portion of incision) Laboratory Results Last 24 Hours Test 11/26/17 07:37 11/26/17 08:05 11/26/17 12:10 11/26/17 16:55 White Blood Count 12.15 K/uL Red Blood Count 3.22 M/uL Hemoglobin 9.4 g/dL Hematocrit 30.0 % Mean Corpuscular Volume 93.2 fL Mean Corpuscular Hemoglobin 29.2 pg Mean Corpuscular Hemoglobin Concent 31.3 g/dl Platelet Count 214 K/uL Mean Platelet Volume 9.6 fL Neutrophils (%) (Auto) 64.0 % Lymphocytes (%) (Auto) 20.0 % Monocytes (%) (Auto) 10.8 % Eosinophils (%) (Auto) 2.9 % Basophils (%) (Auto) 1.5 % Neutrophils # (Auto) 7.78 K/uL Lymphocytes # (Auto) 2.43 K/uL Monocytes # (Auto) 1.31 K/uL Eosinophils # (Auto) 0.35 K/uL Basophils # (Auto) 0.18 K/uL RDW Standard Deviation 54.9 fL RDW Coefficient of Variation 16.2 % Immature Granulocyte % (Auto) 0.8 % Immature Granulocyte # (Auto) 0.10 K/uL Sodium Level 139 mmol/L Potassium Level 3.7 mmol/L Chloride Level 106 mmol/L Carbon Dioxide Level 27 mmol/L Anion Gap 6.0 mmol/L Blood Urea Nitrogen 11 mg/dl Creatinine 1.20 mg/dl Est Creatinine Clear Calc Drug Dose 67.8 ml/min Estimated GFR () 71.6 Estimated GFR (Non- 61.8 BUN/Creatinine Ratio 9.3 Random Glucose 86 mg/dl Calcium Level 8.4 mg/dl Bedside Glucose 118 mg/dl 87 mg/dl 80 mg/dl Test 11/26/17 20:46 Bedside Glucose 107 mg/dl Assessment and Plan 66yo male - 1. altered mental status / encephalopathy - appears resolved. Possible toxic etiology from gabapentin but he only received 1 dose at home - doubt this was primary culprit. Metabolic causes possible from ongoing lumbar spine infectious issues. Either way mental status is much improved. Cervical spine MRI with considerable DJD but no infectious source found. No pneumonia on chest x-rays, and u/a without infection. 2. 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 D/c to home on daptomycin IV daily via PICC since that time. Remains on IV daptomycin. Repeat blood cx's continue to remain negative. MRI lumbar spine repeated this admission - there is concern that there is progressive/ongoing infection at L4-L5. Dr. Wheeler saw the patient today - he suggested that the patient may need to get a surgical opinion at a tertiary care center for repeat surgery (debridement ) of the lumbar spine. Pt reports that if he has to transfer he prefers [facility] [place]. updated with plan of care. Repeat CBC and sed rate in am. 3. cervical spine pain x 2 weeks - MRI of c-spine w/o diskitis, abscess, etc. He has significant DJD of cervical spine. Suspect that his pain is from such. No soft tissue abnormality/infection seen. Could consider CT of the anterior neck soft tissues if necessary. 4. abnormal cxr with hypoxia - no evidence of CHF or pneumonia. O2 weaned off. 5. parkinson's disease - continue outpatient medications. His PD is severe. He reports having been referred to a tertiary care center for consideration of deep brain stimulator but this has been deferred for now. 6. HTN - continue outpatient medications. 7. elevated sed rate - this is WORSE in comparison to last sed rate in October. Diff dx - recurrent infectious process in lumbar spine; inflammatory condition like temporal arteritis given his headaches, etc (doubt); vs other. No evidence of UTI on u/a. Blood cx's negative. Recheck cbc/esr in AM. Source likely the lumbar spine -- see discussion above. 8. PAF - in NSR; does not take anticoagulation. Continue amiodarone to maintain NSR. 9. CAD s/p [place], s/p CABG x 2V in 2000 at [place] - noted; continue usual cardiac meds including asa and beta jair. 10. T2DM - controlled. 11. ?dysphagia - speech has cleared for diet. 12. DVT proph - heparin TID. 13. LES - HS CPAP. 14. BPH - flomax. 15. FEN - stop fluids. BMP in am. updated by phone today appreciate ortho consultation Continued [facility] stay due to: ambulation difficulties, multiple IV medications needed Discharge planning: uncertain
[2017-11-27 05:54] LABS: BASO % 1.8 %; BASO ABS # 0.19 K/uL (0-0.2); EOS % 4.8 %; HEMOGLOBIN 9.1 g/dL (14.0-18.0); IG# 0.12 K/uL (0.00-0.02); LYMPH % 18.2 %; LYMPH ABS # 1.89 K/uL (1.2-3.4); MEAN CELL VOLUME 92.4 fL (80-100); MEAN CORPUSCULAR HGB CONC 31.4 g/dl (32-36); MEAN PLATELET VOLUME 9.7 fL (7.4-10.4); MONO % 11.1 %; MONO ABS # 1.15 K/uL (0.11-0.59); NEUT % 62.9 %; NEUT ABS # 6.52 K/uL (1.4-6.5); PLATELET COUNT 215 K/uL (130-400); RED CELL DISTRIBUTION WIDTH SD 54.1 fL (36.4-46.3); WHITE BLOOD COUNT 10.37 K/uL (4.8-10.8)
[2017-11-27] MEDS: HEPARIN SOD 5000 UNIT/0.5 ML CARP SQ SCH ×3 (06:26→21:24)
[2017-11-27 06:28] LABS: CALCIUM 8.1 mg/dl (8.5-10.1); CREATININE 1.25 mg/dl (0.60-1.40); POTASSIUM 3.4 mmol/L (3.5-5.1)
[2017-11-27] MEDS: POLYETHYLENE (MIRALAX) 17 GM PACK PO SCH (09:00)
[2017-11-27] MEDS: INSULIN ASPART 100 UNITS/ML 3 ML PEN SC SCH ×4 (09:22→21:00)
[2017-11-27] MEDS: FLUTICASONE/SALMETEROL 250/50 (ADVAIR) 14 PUFF/1 INHALER INH SCH ×2 (09:52→21:29)
[2017-11-27] MEDS: TIOTROPIUM BROMIDE 5 PUFF/90 MCG INH INH SCH (09:53)
[2017-11-27] MEDS: LUBIPROSTONE 8 MCG CAP PO SCH (09:54)
[2017-11-27] MEDS: DOCUSATE SODIUM 100 MG CAP PO SCH ×2 (09:57→21:31)
[2017-11-27] MEDS: AMIODARONE 200 MG TAB PO SCH (09:58)
[2017-11-27] MEDS: DULOXETINE HCL 60 MG CAP PO SCH (09:59)
[2017-11-27] MEDS: ASPIRIN 81 MG ECTAB PO SCH (10:00)
[2017-11-27] MEDS: AMLODIPINE BESYLATE 5 MG TAB PO SCH (10:01)
[2017-11-27] MEDS: CARBIDOPA/LEVODOPA 25/100MG TAB PO SCH ×4 (10:03→21:30)
[2017-11-27] MEDS: PANTOprazole SOD 40 MG TAB PO SCH (10:03)
[2017-11-27] MEDS: CARBIDOPA/LEVODOPA 50/200MG EXT REL TAB PO SCH ×2 (10:04→21:30)
[2017-11-27] MEDS: CHOLECALCIFEROL 1000 INTER.UNIT TAB PO SCH (10:05)
--- NOTE | 2017-11-27 13:29 | Progress Note ---
Progress Note Date of Service Nov 27, 2017. Progress Note Patient states his back pain is well controlled. He had some cramping in his legs last evening but no issues at this time. He states his neck pain is controlled. At this time is remained afebrile. Cultures have been negative. His sed rate is decreasing as well as his white blood count. On exam he is in the chair at the bedside. Is comfortable. Assessment infection lumbar spine. Plan at this time he appears to be relatively stable his laboratories studies are improving. Continued observation is warranted. I did review with the patient and his family that if he declines we may need to consider transfer to tertiary care for possible anterior surgical debridement of the lumbar spine. This point he does however appear to be stable and improving observation is reasonable. Regarding his cervical spine MRI severe multilevel spinal stenosis but of course in light of his health history history or no hurry for any surgical intervention.
[2017-11-27] MEDS: TRAMADOL HCL 50 MG TAB PO PRN (16:24)
--- NOTE | 2017-11-27 17:42 | Hospitalist Progress Note ---
Hospitalist Progress Note Date of Service Nov 27, 2017. Subjective Pt evaluation today including: conversation w/ patient, chart review (Reviewed outpatient chart and inpatient chart), lab review, conversation w/ securities consultant ( Orthopedic surgeon) Patient reports significant cramping in his calves and feels tight in his legs at times. This is been going on only for about the last week. Denies chest pain or shortness of breath except he does get dyspneic with exertion at times. He has a chronic cough but nothing acute. Denies abdominal pain and he is moving his bowels. He is tolerating p.o. He remains afebrile. He reports he was getting his IV antibiotics at home every day as prescribed. He reports some soreness in the back and neck at times All Other Systems: Reviewed and Negative Objective Vital Signs Date Time Temp Pulse Resp B/P (MAP) Pulse Ox O2 Delivery O2 Flow Rate FiO2 11/27/17 15:15 Room Air 11/27/17 15:04 36.4 81 20 110/80 (90) 94 Room Air 11/27/17 14:10 108/50 (69) 11/27/17 13:13 112/64 (80) 11/27/17 07:51 95 Room Air 11/27/17 07:46 36.6 77 15 131/70 (90) 95 Room Air 11/27/17 07:15 Room Air 11/27/17 01:07 94 Room Air 11/27/17 00:00 94 Room Air 11/26/17 23:24 36.7 87 20 146/66 (92) 88 Room Air 11/26/17 21:01 88 146/67 (93) Physical Exam General Appearance: no apparent distress, + pertinent finding (Sitting up in chair eating his dinner) Eyes: normal inspection, sclerae normal ENT: hearing grossly normal, pharynx normal Neck: trachea midline, + pertinent finding (Mild torticollis to the left) Respiratory/Chest: no respiratory distress, no accessory muscle use, + decreased breath sounds (Diminished throughout, no wheezes crackles or rhonchi) Cardiovascular: regular rate, rhythm, no edema, no murmur Abdomen: normal bowel sounds, non tender, soft Extremities: + pertinent finding (Significant resting tremor with arms flapping and hitting his abdomen) Neurologic/Psychiatric: alert, normal mood/affect, + pertinent finding (Masked facies) Skin: normal color, warm/dry, + rash (Senile purpura all over arms), + pertinent finding (Left upper extremity PICC line in place without surrounding erythema) Laboratory Results Last 24 Hours Test 11/26/17 20:46 11/27/17 05:36 11/27/17 08:24 11/27/17 12:08 Bedside Glucose 107 mg/dl 112 mg/dl 127 mg/dl White Blood Count 10.37 K/uL Red Blood Count 3.14 M/uL Hemoglobin 9.1 g/dL Hematocrit 29.0 % Mean Corpuscular Volume 92.4 fL Mean Corpuscular Hemoglobin 29.0 pg Mean Corpuscular Hemoglobin Concent 31.4 g/dl Platelet Count 215 K/uL Mean Platelet Volume 9.7 fL Neutrophils (%) (Auto) 62.9 % Lymphocytes (%) (Auto) 18.2 % Monocytes (%) (Auto) 11.1 % Eosinophils (%) (Auto) 4.8 % Basophils (%) (Auto) 1.8 % Neutrophils # (Auto) 6.52 K/uL Lymphocytes # (Auto) 1.89 K/uL Monocytes # (Auto) 1.15 K/uL Eosinophils # (Auto) 0.50 K/uL Basophils # (Auto) 0.19 K/uL RDW Standard Deviation 54.1 fL RDW Coefficient of Variation 16.0 % Immature Granulocyte % (Auto) 1.2 % Immature Granulocyte # (Auto) 0.12 K/uL Erythrocyte Sedimentation Rate 59 mm/hr Sodium Level 136 mmol/L Potassium Level 3.4 mmol/L Chloride Level 104 mmol/L Carbon Dioxide Level 29 mmol/L Anion Gap 3.0 mmol/L Blood Urea Nitrogen 10 mg/dl Creatinine 1.25 mg/dl Est Creatinine Clear Calc Drug Dose 65.1 ml/min Estimated GFR () 68.1 Estimated GFR (Non- 58.8 BUN/Creatinine Ratio 7.6 Random Glucose 98 mg/dl Calcium Level 8.1 mg/dl Assessment and Plan This patient is a 66yo male who presents with: 1. altered mental status / encephalopathy - appears resolved. Possible toxic etiology from gabapentin but he only received 1 dose at home - doubt this was primary culprit. Metabolic causes possible from ongoing lumbar spine infectious issues. Either way mental status is much improved. Cervical spine MRI with considerable DJD but no infectious source found. No pneumonia on chest x-rays, and u/a without infection. 2. 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 Was discharged to home on daptomycin IV daily via PICC since that time. Remains on IV daptomycin. CPK is normal Repeat blood cx's continue to remain negative. ESR quite elevated from previous at 85 on admission, CRP elevated more than previous on admission not 7.5-ESR is now significantly decreased today down to 59 MRI lumbar spine repeated this admission - there is concern that there is progressive/ongoing infection at L4-L5. Dr. Wheeler/orthopedic spine surgeon - he suggested that the patient may need to get a surgical opinion at a tertiary care center for repeat surgery (debridement ) of the lumbar spine if is not improving, however today he feels that he is improving with normalization of his leukocytosis, and decreasing markers of inflammation as well as clinically improved-no transfer to tertiary care needed at this time. Will likely need repeat MRI of the lumbar spine in [address] Wheeler -Follow CBC, ESR, CRP in the morning -Continue IV daptomycin for at least 3 more weeks as previously ordered 3. cervical spine pain x 2 weeks - MRI of c-spine w/o diskitis, abscess, etc. He has significant DJD of cervical spine. Suspect that his pain is from such. No soft tissue abnormality/infection seen. 4. abnormal cxr with hypoxia - no evidence of CHF or pneumonia. Has a history of COPD-O2 weaned off. Resolved 5. Parkinson's disease - continue outpatient medications. His PD is severe. He reports having been referred to a tertiary care center for consideration of deep brain stimulator but this has been deferred for now. Follows with Dr. Art of neurology here. Stable on Sinemet -continue current dose of Sinemet with combination of immediate release and controlled release 6. HTN -blood pressures acceptable -Continue outpatient medications of amlodipine, metoprolol, and hydralazine 7. elevated sed rate - this is WORSE in comparison to last sed rate in October and is most likely related to his ongoing lumbar spine infection. Diff dx - recurrent infectious process in lumbar spine; inflammatory condition like temporal arteritis given his headaches, etc (doubt especially as it has come down without any treatment for such). No evidence of UTI on u/a. Blood cx's negative. Recheck cbc/esr in AM as above. Source likely the lumbar spine -- see discussion above. 8. PAF - in NSR here; does not take anticoagulation due to history of hemoptysis. Continue amiodarone to maintain NSR. Follows with Dr. Arevalo of cardiology -Continue metoprolol 9. CAD s/p [place], s/p CABG x 2V in 2000 at [place] - noted, no signs of ACS here; continue usual cardiac meds including asa and beta jair. 10. T2DM - controlled. Last hemoglobin A1c 5.3% in 09/2017 -Sliding scale insulin, Accu-Cheks 11. ?dysphagia - speech has cleared for diet. 12. DVT proph - heparin TID. 13. LES - HS CPAP. 14. BPH -stable -Continue Flomax. 15. Normocytic anemia-hemoglobin low since surgery during last admission, hemoglobin today is stable at 9.1. Iron studies at the end of August 2017 were significant for severe iron deficiency. He does have a history of multiple colon polyps and last colonoscopy was 01/2015 with tubular adenomas removed. -Check iron studies, B12, folate in the morning 16. Leg cramps/hypokalemia-could be secondary to this, but also could be from significant iron deficiency -Replace with potassium chloride 40 mEq p.o. 1 now -Follow BMP in the morning, as well as iron studies as above-replace iron if continued deficiency Disposition-remain in the hospital, PT/OT evaluations ordered and patient is potentially agreeable to rehab if recommended-could possibly be discharged tomorrow if recommended for rehab and accepted versus going home
[2017-11-27] MEDS ORDERED: POTASSIUM CHLORIDE 10 MEQ TABCR PO STA (17:52)
[2017-11-27] MEDS: DAPTOmycin IV 500 MG in SYRINGE 0 ML IV SCH (19:31)
[2017-11-27] MEDS: TAMSULOSIN HCL 0.4 MG CAP PO SCH (21:30)
[2017-11-27] MEDS: METOPROLOL SUCC 50MG EXT REL TAB PO SCH (21:31)
[2017-11-28] MEDS: HEPARIN SOD 5000 UNIT/0.5 ML CARP SQ SCH ×3 (05:46→22:12)
[2017-11-28 07:54] LABS: BASO % 1.9 %; BASO ABS # 0.18 K/uL (0-0.2); EOS % 4.1 %; EOS ABS # 0.38 K/uL (0-0.5); HEMATOCRIT 29.9 % (42-52); HEMOGLOBIN 9.5 g/dL (14.0-18.0); IG# 0.11 K/uL (0.00-0.02); LYMPH % 19.6 %; LYMPH ABS # 1.83 K/uL (1.2-3.4); MEAN CELL VOLUME 91.7 fL (80-100); MEAN CORPUSCULAR HEMOGLOBIN 29.1 pg (25-34); MEAN CORPUSCULAR HGB CONC 31.8 g/dl (32-36); MEAN PLATELET VOLUME 9.5 fL (7.4-10.4); MONO % 10.7 %; NEUT % 62.5 %; NEUT ABS # 5.85 K/uL (1.4-6.5); PLATELET COUNT 210 K/uL (130-400); RED CELL DISTRIBUTION WIDTH CV 15.9 % (11.5-14.5); RED CELL DISTRIBUTION WIDTH SD 52.9 fL (36.4-46.3); WHITE BLOOD COUNT 9.35 K/uL (4.8-10.8)
[2017-11-28 08:06] VITALS: O2SAT 95
[2017-11-28 08:33] LABS: CALCIUM 8.6 mg/dl (8.5-10.1); CREATININE 1.15 mg/dl (0.60-1.40); POTASSIUM 3.8 mmol/L (3.5-5.1)
[2017-11-28 08:37] VITALS: BP 136/83; PULSE 84; TEMP 36.7; O2SAT 91
[2017-11-28] MEDS: INSULIN ASPART 100 UNITS/ML 3 ML PEN SC SCH ×4 (08:53→21:31)
[2017-11-28] MEDS: FLUTICASONE/SALMETEROL 250/50 (ADVAIR) 14 PUFF/1 INHALER INH SCH ×2 (08:56→21:22)
[2017-11-28] MEDS: TIOTROPIUM BROMIDE 5 PUFF/90 MCG INH INH SCH (08:57)
[2017-11-28] MEDS: LUBIPROSTONE 8 MCG CAP PO SCH (08:58)
[2017-11-28] MEDS: ASPIRIN 81 MG ECTAB PO SCH (08:58)
[2017-11-28] MEDS: CARBIDOPA/LEVODOPA 25/100MG TAB PO SCH ×4 (08:59→22:11)
[2017-11-28] MEDS: POLYETHYLENE (MIRALAX) 17 GM PACK PO SCH (08:59)
[2017-11-28] MEDS: AMLODIPINE BESYLATE 5 MG TAB PO SCH (09:00)
[2017-11-28] MEDS: PANTOprazole SOD 40 MG TAB PO SCH (09:00)
[2017-11-28] MEDS: CHOLECALCIFEROL 1000 INTER.UNIT TAB PO SCH (09:01)
[2017-11-28] MEDS: DULOXETINE HCL 60 MG CAP PO SCH (09:01)
[2017-11-28] MEDS: CARBIDOPA/LEVODOPA 50/200MG EXT REL TAB PO SCH ×2 (09:01→21:23)
[2017-11-28] MEDS: DOCUSATE SODIUM 100 MG CAP PO SCH ×2 (09:01→21:23)
[2017-11-28] MEDS: AMIODARONE 200 MG TAB PO SCH (09:02)
[2017-11-28] MEDS ORDERED: POTASSIUM CHLORIDE 10 MEQ TABCR PO STA (09:02)
[2017-11-28] MEDS ORDERED: NURSING VERBAL MED ORDER ONE (10:00)
[2017-11-28 10:34] VITALS: BP 136/83; PULSE 84; O2SAT 93
[2017-11-28 11:45] VITALS: BP 130/71; PULSE 71; TEMP 36.7; O2SAT 98
[2017-11-28] MEDS: CYCLOBENZAPRINE HCL 5 MG TAB PO PRN ×2 (12:43→21:26)
--- NOTE | 2017-11-28 13:42 | Hospitalist Progress Note ---
Hospitalist Progress Note Date of Service Nov 28, 2017. Subjective Pt evaluation today including: conversation w/ patient, conversation w/ family Patient still has complaints of significant leg cramps in the medial calves right greater than left that are worse with ambulation. His does not feel he should come home until these are improved as a significantly inhibits his ambulatory function which was poor to begin with. He absolutely refuses discharge to SNF for rehab. However, PT does say that he could return home with close care. Remains afebrile. Has minimal lower back pain. Is making urine without retention. He is moving his bowels. All Other Systems: Reviewed and Negative Objective Vital Signs Date Time Temp Pulse Resp B/P (MAP) Pulse Ox O2 Delivery O2 Flow Rate FiO2 11/28/17 11:45 36.7 71 16 130/71 (90) 98 Room Air 11/28/17 10:34 84 93 11/28/17 08:37 36.7 84 16 136/83 (100) 91 Room Air 11/28/17 08:06 95 Room Air CPAP 11/27/17 23:20 Room Air CPAP 11/27/17 22:55 36.7 92 22 122/69 (86) 93 Room Air 11/27/17 21:25 85 146/77 (100) 11/27/17 15:15 Room Air 11/27/17 15:04 36.4 81 20 110/80 (90) 94 Room Air 11/27/17 14:10 108/50 (69) Physical Exam General Appearance: WD/WN, no apparent distress Eyes: normal inspection, sclerae normal ENT: hearing grossly normal Neck: trachea midline Respiratory/Chest: lungs clear, normal breath sounds, no respiratory distress, no accessory muscle use Cardiovascular: regular rate, rhythm, no murmur Abdomen: normal bowel sounds, non tender, soft Extremities: no calf tenderness, + pertinent finding (Trace edema in the left leg, no edema on the right leg; no tenderness to palpation over the calves, no masses; 2+ dorsalis pedis pulses bilaterally) Neurologic/Psychiatric: alert, normal mood/affect, oriented x 3, + pertinent finding (Severe resting tremor in the upper extremities and head and neck at times) Skin: normal color, warm/dry Laboratory Results Last 24 Hours Test 11/27/17 17:35 11/27/17 20:56 11/28/17 07:41 11/28/17 08:12 Bedside Glucose 99 mg/dl 83 mg/dl 102 mg/dl White Blood Count 9.35 K/uL Red Blood Count 3.26 M/uL Hemoglobin 9.5 g/dL Hematocrit 29.9 % Mean Corpuscular Volume 91.7 fL Mean Corpuscular Hemoglobin 29.1 pg Mean Corpuscular Hemoglobin Concent 31.8 g/dl Platelet Count 210 K/uL Mean Platelet Volume 9.5 fL Neutrophils (%) (Auto) 62.5 % Lymphocytes (%) (Auto) 19.6 % Monocytes (%) (Auto) 10.7 % Eosinophils (%) (Auto) 4.1 % Basophils (%) (Auto) 1.9 % Neutrophils # (Auto) 5.85 K/uL Lymphocytes # (Auto) 1.83 K/uL Monocytes # (Auto) 1.00 K/uL Eosinophils # (Auto) 0.38 K/uL Basophils # (Auto) 0.18 K/uL RDW Standard Deviation 52.9 fL RDW Coefficient of Variation 15.9 % Immature Granulocyte % (Auto) 1.2 % Immature Granulocyte # (Auto) 0.11 K/uL Erythrocyte Sedimentation Rate 65 mm/hr Sodium Level 136 mmol/L Potassium Level 3.8 mmol/L Chloride Level 103 mmol/L Carbon Dioxide Level 28 mmol/L Anion Gap 5.0 mmol/L Blood Urea Nitrogen 10 mg/dl Creatinine 1.15 mg/dl Est Creatinine Clear Calc Drug Dose 70.8 ml/min Estimated GFR () 75.4 Estimated GFR (Non- 65.0 BUN/Creatinine Ratio 8.3 Random Glucose 96 mg/dl Calcium Level 8.6 mg/dl Magnesium Level 2.2 mg/dl Iron Level 34 mcg/dl Total Iron Binding Capacity 221 mcg/dl Transferrin 169 mg/dl Transferrin % Saturation 14 % Ferritin 60.3 ng/ml C-Reactive Protein 3.39 mg/dl Vitamin B12 Level 529 pg/mL Folate 9.08 ng/mL Assessment and Plan This patient is a 66yo male who presents with: 1. altered mental status / encephalopathy - appears resolved. Possible toxic etiology from gabapentin but he only received 1 dose at home - doubt this was primary culprit. Metabolic causes possible from ongoing lumbar spine infectious issues. Either way mental status is much improved. Cervical spine MRI with considerable DJD but no infectious source found. No pneumonia on chest x-rays, and u/a without infection. 2. 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 Was discharged to home on daptomycin IV daily via PICC since that time. Remains on IV daptomycin. CPK is normal Repeat blood cx's continue to remain negative. ESR quite elevated from previous at 85 on admission, CRP elevated more than previous on admission not 7.5-ESR is now significantly decreased to 59 yesterday and fairly stable at 65 today. CRP is reduced today to 3.39 Leukocytosis continues to improve down to 9.3 today MRI lumbar spine repeated this admission - there is concern that there is progressive/ongoing infection at L4-L5, however orthopedic spine surgeon thinks these could all just be postoperative changes Dr. Wheeler/orthopedic spine surgeon - he suggested that the patient may need to get a surgical opinion at a tertiary care center for repeat surgery (debridement ) of the lumbar spine if is not improving, however currently he feels that he is improving with normalization of his leukocytosis, and decreasing markers of inflammation as well as clinically improved-no transfer to tertiary care needed at this time. Will likely need repeat MRI of the lumbar spine in [address] Wheeler -Follow CBC, ESR, CRP in the morning -Continue IV daptomycin for at least 3 more weeks as previously ordered 3. cervical spine pain x 2 weeks - MRI of c-spine w/o diskitis, abscess, etc. He has significant DJD of cervical spine. Suspect that his pain is from such. No soft tissue abnormality/infection seen. 4. abnormal cxr with hypoxia - no evidence of CHF or pneumonia. Has a history of COPD-O2 weaned off. Resolved 5. Parkinson's disease - continue outpatient medications. His PD is severe. He reports having been referred to a tertiary care center for consideration of deep brain stimulator but this has been deferred for now. Follows with Dr. Art of neurology here. Stable on Sinemet -continue current dose of Sinemet with combination of immediate release and controlled release 6. HTN -blood pressures acceptable -Continue outpatient medications of amlodipine, metoprolol, and hydralazine 7. elevated sed rate - this is WORSE in comparison to last sed rate in October and is most likely related to his ongoing lumbar spine infection. Diff dx - recurrent infectious process in lumbar spine; inflammatory condition like temporal arteritis given his headaches, etc (doubt especially as it has come down without any treatment for such). No evidence of UTI on u/a. Blood cx's negative. Recheck cbc/esr in AM as above. Source likely the lumbar spine -- see discussion above. 8. PAF - in NSR here; does not take anticoagulation due to history of hemoptysis. Continue amiodarone to maintain NSR. Follows with Dr. Arevalo of cardiology -Continue metoprolol 9. CAD s/p [place], s/p CABG x 2V in 2000 at [place] - noted, no signs of ACS here; continue usual cardiac meds including asa and beta jair. 10. T2DM - controlled. Last hemoglobin A1c 5.3% in 09/2017 -Sliding scale insulin, Accu-Cheks 11. ?dysphagia - speech has cleared for diet. 12. DVT proph - heparin TID. 13. LES - HS CPAP. 14. BPH -stable -Continue Flomax. 15. Normocytic anemia-hemoglobin low since surgery during last admission, hemoglobin today is stable at 9.5. Iron studies at the end of August 2017 were significant for severe iron deficiency, and here are slightly improved previous although ferritin is an acute phase reactant could be falsely elevated in the setting of infection. He was unable to tolerate p.o. iron in the past and had IV iron infusions in 06/2017. B12 and folate are normal. He does have a history of multiple colon polyps and last colonoscopy was 01/2015 with tubular adenomas removed. -We will give IV iron infusions daily 3 days while here -Hopefully this will also help his leg cramps 16. Leg cramps/hypokalemia-could be secondary to this, but also could be from significant iron deficiency -Replace with potassium chloride as needed to keep potassium at 4.0 -Follow BMP in the morning -IV iron as above Disposition-remain in the hospital, PT/OT evaluations ordered and PT recommends going home, OT recommends SNF for rehab but patient adamant about going home- possibly tomorrow if leg cramps are improved
[2017-11-28] MEDS ORDERED: IRON SUCROSE INJ 100 MG in SODIUM CHLORIDE 0.9% 100ML 100 ML IV SCH (15:00)
[2017-11-28 15:10] VITALS: BP 119/78; PULSE 73; TEMP 36.8; O2SAT 98
[2017-11-28] MEDS: TRAMADOL HCL 50 MG TAB PO PRN (15:49)
[2017-11-28] MEDS: TAMSULOSIN HCL 0.4 MG CAP PO SCH (21:23)
[2017-11-28] MEDS: METOPROLOL SUCC 50MG EXT REL TAB PO SCH (21:25)
[2017-11-28] MEDS: DAPTOmycin IV 500 MG in SYRINGE 0 ML IV SCH (22:11)
[2017-11-28 22:50] VITALS: BP 120/65; PULSE 80; TEMP 37.1; O2SAT 93
[2017-11-29] MEDS: HEPARIN SOD 5000 UNIT/0.5 ML CARP SQ SCH ×2 (05:44→14:09)
[2017-11-29 06:48] VITALS: BP 111/65; PULSE 68; TEMP 36.8; O2SAT 95
[2017-11-29 07:46] LABS: BASO % 1.8 %; BASO ABS # 0.17 K/uL (0-0.2); EOS % 4.2 %; HEMATOCRIT 30.6 % (42-52); HEMOGLOBIN 9.5 g/dL (14.0-18.0); IG# 0.11 K/uL (0.00-0.02); LYMPH % 21.7 %; LYMPH ABS # 2.05 K/uL (1.2-3.4); MEAN CORPUSCULAR HEMOGLOBIN 28.9 pg (25-34); MEAN PLATELET VOLUME 9.4 fL (7.4-10.4); MONO % 12.1 %; MONO ABS # 1.14 K/uL (0.11-0.59); NEUT ABS # 5.56 K/uL (1.4-6.5); PLATELET COUNT 209 K/uL (130-400); RED CELL DISTRIBUTION WIDTH CV 16.1 % (11.5-14.5); RED CELL DISTRIBUTION WIDTH SD 54.8 fL (36.4-46.3); WHITE BLOOD COUNT 9.43 K/uL (4.8-10.8)
[2017-11-29 08:18] LABS: CALCIUM 8.7 mg/dl (8.5-10.1); CREATININE 1.37 mg/dl (0.60-1.40); POTASSIUM 4.7 mmol/L (3.5-5.1)
[2017-11-29] MEDS: FLUTICASONE/SALMETEROL 250/50 (ADVAIR) 14 PUFF/1 INHALER INH SCH (08:31)
[2017-11-29] MEDS: TIOTROPIUM BROMIDE 5 PUFF/90 MCG INH INH SCH (08:32)
[2017-11-29] MEDS: POLYETHYLENE (MIRALAX) 17 GM PACK PO SCH (08:36)
[2017-11-29] MEDS: LUBIPROSTONE 8 MCG CAP PO SCH (08:38)
[2017-11-29] MEDS: ASPIRIN 81 MG ECTAB PO SCH (08:39)
[2017-11-29] MEDS: DOCUSATE SODIUM 100 MG CAP PO SCH (08:39)
[2017-11-29] MEDS: AMIODARONE 200 MG TAB PO SCH (08:39)
[2017-11-29] MEDS: DULOXETINE HCL 60 MG CAP PO SCH (08:39)
[2017-11-29] MEDS: AMLODIPINE BESYLATE 5 MG TAB PO SCH (08:40)
[2017-11-29] MEDS: CHOLECALCIFEROL 1000 INTER.UNIT TAB PO SCH (08:43)
[2017-11-29] MEDS: CARBIDOPA/LEVODOPA 50/200MG EXT REL TAB PO SCH (08:43)
[2017-11-29] MEDS: CARBIDOPA/LEVODOPA 25/100MG TAB PO SCH ×2 (08:43→13:13)
[2017-11-29] MEDS ORDERED: TIOTROPIUM BROMIDE 28 PUFF/4 GM INH INH SCH (09:00)
[2017-11-29] MEDS ORDERED: PANTOprazole SOD 40 MG TAB PO SCH (09:00)
[2017-11-29] MEDS ORDERED: DESLORATADINE 5 MG TAB PO SCH (09:00)
[2017-11-29] MEDS: INSULIN ASPART 100 UNITS/ML 3 ML PEN SC SCH ×2 (09:19→13:16)
[2017-11-29 13:25] VITALS: BP 127/66
[2017-11-29] MEDS ORDERED: IRON SUCROSE INJ 100 MG in SODIUM CHLORIDE 0.9% 100ML 100 ML IV SCH (14:00)
[2017-11-29] MEDS ORDERED: MCRK20 PO (14:36)
[2017-11-29] MEDS ORDERED: DAPT500I IV (14:46)
[2017-11-29] MEDS ORDERED: MGNO400 PO (14:46)
[2017-11-29] MEDS ORDERED: ULT50X PO (14:46)
[2017-11-29] MEDS ORDERED: FURO20TA PO (14:46)
[2017-11-29] MEDS ORDERED: ACET-1047 PO (14:46)
--- NOTE | 2017-11-29 14:53 | Discharge Instructions ---
Discharge Instructions Date of Service Nov 29, 2017. Admission Reason for Admission: Metabolic Encephalopathy Discharge Discharge Diagnosis / Problem: Metabolic encephalopathy, lumbar spine discitis Discharge Goals Goal(s): Improve disease control, Diagnostic testing, Therapeutic intervention Activity Recommendations Activity Limitations: as noted below Lifting Limitations: no more than 5 pounds Exercise/Sports Limitations: gradually increase as tolerated (With home PT/OT) Shower/Bathe: no limitations (Except keep the PICC line dry) . Instructions / Follow-Up Instructions / Follow-Up Please continue on the IV daptomycin antibiotic daily for at least 3 more weeks. Follow-up with Dr. Wheeler within 1-2 weeks and he wants to repeat the MRI of your back in a few weeks. For your leg cramps, this could be from low iron levels, low potassium levels, and minor blockages in the arteries of your legs from smoking. It is highly recommended that you quit smoking immediately. You received IV iron while here , as well as potassium replacement. Please continue taking potassium only if you take your as needed Lasix at home. Please follow-up with your family doctor within 1 week after discharge. If your leg cramps worsen again, please let your family doctor know. Current Hospital Diet Patient's current hospital diet: Diabetes Type 2 Diet, AHA Diet (Heart Healthy) Discharge Diet Recommended Diet: AHA Diet (Heart Healthy), Diabetes Type 2 Diet Procedures Procedures Performed: CT head Chest x-ray CT lumbar spine Left lower extremity venous Doppler MRI lumbar spine MRI cervical spine Pending Studies Studies pending at discharge: yes List of pending studies: Final blood cultures-no growth to date Laboratory Results Hemoglobin A1c Test 09/21/17 14:23 Range/Units Estimated Average Glucose 105 mg/dl Hemoglobin A1c 5.3 4.5-5.6 % Lipid Panel Test 10/30/17 10:33 Range/Units Triglycerides Level 71 0-150 mg/dl Cholesterol Level 82 0-200 mg/dl HDL Cholesterol 44 mg/dl Cholesterol/HDL Ratio 1.9 LDL Cholesterol, Calculated 24 mg/dl Medical Emergencies . Who to Call and When: Medical Emergencies: If at any time you feel your situation is an emergency, please call 911 immediately. . Non-Emergent Contact Non-Emergency issues call your: Primary Care Provider, Surgeon Call Non-Emergent contact if: you have a fever, temperature is above 101, your pain is not controlled, your pain is worsening, your pain is unusual for you, your pain is concerning you, you have any medication questions . . "Provider Documentation" section prepared by Izabella Herrmann. . [facility] Monitoring Program Search Results: patient reviewed within database, no issues identified
--- NOTE | 2017-11-29 14:56 | Discharge Summary ---
Discharge Summary Date of Service Nov 29, 2017. 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 Leukocytosis Neck pain Acute hypoxic respiratory failure Bilateral small pleural effusions Parkinson's disease HTN PAF CAD s/p DC, s/p CABG x 2V in 2000 at [facility], controlled LES on CPAP BPH Normocytic anemia-of chronic kidney disease and iron deficiency Leg cramps Hypokalemia Immunizations: Have You Had Influenza Vaccine: Yes Influenza Vaccine Date: Mar 07, 2007 History of Tetanus Vaccine?: Yes Tetanus Immunization Date: Jul 19, 2010 History of Pneumococcal: Yes History of Hepatitis B Vaccine: No Procedures: CT head Chest x-ray CT lumbar spine Left lower extremity venous Doppler MRI lumbar spine MRI cervical spine Consultations: Orthopedic Spine Surgery Medication Reconciliation New Medications: Magnesium Oxide (Magnesium-Oxide) 400 Mg Tab 400 MG PO DAILY for 30 Days, #30 TAB OTC, for leg cramps Changed Medications: Acetaminophen (Mapap) 325 Mg Tab 650 MG PO Q8H PRN for Pain for 30 Days (Changed from: 1000 MG; Removed Max Daily Dose; Removed Quantity; 7) Furosemide (Lasix) 20 Mg Tab 20 MG PO DAILY PRN for FLUID for 30 Days (Changed from: 20-60 MG; TID) Continued Medications: Amiodarone HCl (Amiodarone HCl) 200 Mg Tab 200 MG PO DAILY Amlodipine (Norvasc) 10 Mg Tab 10 MG PO DAILY, TAB Aspirin (Aspirin Ec) 81 Mg Tab 81 MG PO DAILY Carbidopa/Levodopa (Sinemet Cr 50MG/200MG) Tabcr 1 TAB PO BID, TAB Carbidopa/Levodopa (Sinemet 25MG/100MG) Tab 1 TAB PO QID, TAB Cholecalciferol (Vitamin D3) 2,000 Unit Cap 1 CAP PO DAILY for 90 Days, #90 CAP 3 Refills Daptomycin (Daptomycin) 500 Mg Inj 500 MG IV DAILY for 21 Days, #21 SYR (This prescription has been renewed) Desloratadine (Clarinex) 5 Mg Tab 5 MG PO DAILY, TAB Docusate Sodium (Colace) 100 Mg Cap 1 CAP PO BID Duloxetine Hcl (Cymbalta) 60 Mg Cap 60 MG PO DAILY, CAP Fluticasone Prop/Salmeterol (Advair Diskus 250-50 Mcg/Dose) 14 Puff/1 Inhaler Aerp 1 PUFF INH Q12 Hydralazine Hcl (Apresoline) 100 Mg Tab 1 TAB PO TID for 30 Days, #90 TAB 5 Refills Levalbuterol (Levalbuterol HCl) 1.25 Mg/3 Ml Nebu 1.25 MG INH Q4-6HOURS PRN for SOB/Wheezing Lubiprostone (Amitiza) 8 Mcg Cap 8 MCG PO DAILY, CAP Metoprolol Succ (Toprol Xl) (Toprol-Xl) 50 Mg Tabcr 75 MG PO HS Multivitamin (Multivitamin) Tab 1 TAB PO DAILY, TAB Pantoprazole Sodium (Protonix) 20 Mg Tab 20 MG PO DAILY, #90 Polyethylene Glycol 3350 (Miralax) 1 Pow Pow 17 GM PO DAILY, #255 GM Potassium Chloride (Klor-Con M20) 20 Meq Tabcr 20 MEQ PO DAILY PRN for if you take lasix for 30 Days Tamsulosin HCl (Tamsulosin HCl) 0.4 Mg Cap 0.4 MG PO HS Tiotropium [place] (Spiriva Respimat) 2.5 Mcg/Act Spr 2 PUFF INH DAILY Tramadol HCl (Tramadol HCl) 50 Mg Tab 50 MG PO Q6H PRN for Pain for 7 Days, #28 TAB (This prescription has been renewed) Referrals At Discharge Follow up Referrals: Orthopedics Referral - Within 1-2 Weeks with Juan Luis Wheeler D.O. Discharge Exam Feeling well has minimal pain in lower back. Afebrile. Feels his leg cramps in the calves are improved today after receiving potassium and IV iron. Still gets some cramps with walking down the halls. Denies SOB or CP. Ready for dc to home Physical Exam General Appearance: WD/WN, no apparent distress Eyes: normal inspection, sclerae normal ENT: hearing grossly normal Neck: trachea midline Respiratory/Chest: lungs clear, normal breath sounds, no respiratory distress, no accessory muscle use Cardiovascular: regular rate, rhythm, no murmur Abdomen: normal bowel sounds, non tender, soft Extremities: no calf tenderness, + pertinent finding (Trace edema in the left leg, no edema on the right leg; no tenderness to palpation over the calves, no masses; 2+ dorsalis pedis pulses bilaterally) Neurologic/Psychiatric: alert, normal mood/affect, oriented x 3, + pertinent finding (Severe resting tremor in the upper extremities and head and neck at times) Skin: normal color, warm/dry Review of Systems: Constitutional: No fever, No chills Eyes: No problem reported ENT: No problem reported Respiratory: No problem reported Cardiovascular: No problem reported Abdomen: No problem reported Musculoskeletal: No problem reported Genitourinary - Male: No problem reported Neurologic: + problem reported (tremor) Psychiatric: No problem reported Endocrine: No problem reported Hematologic / Lymphatic: No problem reported Integumentary: No problem reported Hospital Course This patient is a 66yo male who presents with: 1. altered mental status /acut emetabolic encephalopathy - appears resolved. Possible toxic etiology from gabapentin but he only received 1 dose at home - doubt this was primary culprit. Metabolic causes possible from ongoing lumbar spine infectious issues. Either way mental status is much improved. Cervical spine MRI with considerable DJD but no infectious source found. No pneumonia on chest x-rays, and u/a without infection. 2. 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 Was discharged to home on daptomycin IV daily via PICC since that time. Remains on IV daptomycin. CPK is normal Repeat blood cx's continue to remain negative. ESR quite elevated from previous at 85 on admission, CRP elevated more than previous on admission not 7.5-ESR is now decreased to 60 CRP is reduced even further today to 2.83 Leukocytosis continues to improve down to 9.4 today MRI lumbar spine repeated this admission - there is concern that there is progressive/ongoing infection at L4-L5, however orthopedic spine surgeon thinks these could all just be postoperative changes Dr. Wheeler/orthopedic spine surgeon - he suggested that the patient may need to get a surgical opinion at a tertiary care center for repeat surgery (debridement ) of the lumbar spine if is not improving, however currently he feels that he is improving with normalization of his leukocytosis, and decreasing markers of inflammation as well as clinically improved-no transfer to tertiary care needed at this time. Will likely need repeat MRI of the lumbar spine in [address] Summer -Follow CBC, ESR, CRP, CPK once weekly upon discharge -Continue IV daptomycin for at least 3 more weeks as previously ordered 3. cervical spine pain x 2 weeks - MRI of c-spine w/o diskitis, abscess, etc. He has significant DJD of cervical spine. Suspect that his pain is from such. No soft tissue abnormality/infection seen. 4. abnormal cxr with hypoxia/bilat small pleural effusions - no evidence of CHF or pneumonia. Has a history of COPD-O2 weaned off. Resolved 5. Parkinson's disease - continue outpatient medications. His PD is severe. He reports having been referred to a tertiary care center for consideration of deep brain stimulator but this has been deferred for now. Follows with Dr. Art of neurology here. Stable on Sinemet -continue current dose of Sinemet with combination of immediate release and controlled release 6. HTN -blood pressures acceptable -Continue outpatient medications of amlodipine, metoprolol, and hydralazine 7. elevated sed rate - this is WORSE in comparison to last sed rate in October and is most likely related to his ongoing lumbar spine infection. Diff dx - recurrent infectious process in lumbar spine; inflammatory condition like temporal arteritis given his headaches, etc (doubt especially as it has come down without any treatment for such). No evidence of UTI on u/a. Blood cx's negative. Source likely the lumbar spine -- see discussion above. 8. PAF - in NSR here; does not take anticoagulation due to history of hemoptysis. Continue amiodarone to maintain NSR. Follows with Dr. Arevalo of cardiology -Continue metoprolol 9. CAD s/p DC, s/p CABG x 2V in 2000 at [place] - noted, no signs of ACS here; continue usual cardiac meds including asa and beta jair. 10. T2DM - controlled. Last hemoglobin A1c 5.3% in 09/2017 -Sliding scale insulin, Accu-Cheks 11. ?dysphagia - speech has cleared for diet. 12. LES - HS CPAP. 13. BPH -stable -Continue Flomax. 15. Normocytic anemia-hemoglobin low since surgery during last admission, hemoglobin today is stable at 9.5. Iron studies at the end of August 2017 were significant for severe iron deficiency, and here are slightly improved previous although ferritin is an acute phase reactant could be falsely elevated in the setting of infection. He was unable to tolerate p.o. iron in the past and had IV iron infusions in 06/2017. B12 and folate are normal. He does have a history of multiple colon polyps and last colonoscopy was 01/2015 with tubular adenomas removed. -gave IV iron infusions daily 2 days while here -Hopefully this will also help his leg cramps -f/u with PCP to see if needs future IV iron -consider EGD/Colonoscopy 16. Leg cramps/hypokalemia-could be secondary to this, but also could be from significant iron deficiency. Improved today with replacement of K+ and iron -continue KCl at home only if takes lasix -try magnesium oxide 400mg po once daily for leg cramps at home -advised to quit smoking Disposition-stable for dc to home today Total Time Spent: Greater than 30 minutes This includes examination of the patient, discharge planning, medication reconciliation, and communication with other providers. Discharge Instructions Please refer to the electronic Patient Visit Report (Discharge Instructions) for additional information. Follow-Up With PCP within 1-2 weeks With Ortho SPine within 1-2 weeks Additional Copies To Juan Luis Wheeler D.O.; Jeromy Hanson M.D.
[2017-11-29 15:23] VITALS: BP 117/67; PULSE 75; TEMP 36.5; O2SAT 93
[2017-11-29] MEDS: DAPTOmycin IV 500 MG in SYRINGE 0 ML IV SCH (15:45)
[2017-11-29 15:53] VITALS: BP 117/67; PULSE 75; TEMP 36.5; O2SAT 93
--- NOTE | 2017-12-03 10:05 | EDITING REQUIRED CODING QUERY ---
PRESENT ON ADMISSION QUERY To promote full compliance with coding requirements relating to pateint care, physician participation is requested in all cases of cake inspector uncertainty. Please assist us with the question(s) below: Please place an X within the parenthesis (x). The following diagnosis(es) listed in this patient's medical record require physician assistance to determine if they were present on admission (POA) or not. Please advise for each diagnosis whether it was present on admission, not present on admission, or if it was clinically undetermined. 1. Acute Hypoxic Respiratory Failure is documented on Discharge Summary ( x) Present On Admission ( ) Not Present On Admission ( ) Clinically Undetermined Thank you Keya Frederick *Definition of the present on admission (POA)-Present on admission is defined as present at the time the order for inpatient admission occurs. Conditions that develop during an outpatient encounter prior to a written order for inpatient admission (including emergency department, observation, or outpatient surgery) are considered present on admission.
--- NOTE | 2017-12-03 10:16 | EDITING REQUIRED CODING QUERY ---
CODING QUERY To promote full compliance with coding requirements relating to patient care, provider participation is requested in all cases of zinc skimmer uncertainty. Please assist us with the question(s) below: Coding Question(s): There is documentation of Lumbar Discitis with documentation of history of Lumbar spine discitis/OM and epidural abscess with I/D and washout with patient being discharged on Daptomycin in October 2017 and patient remains on Daptomycin and is discharged with continued Daptomycin. There is documentation that there is Metabolic Encephalopathy possible from ongoing lumbar spine infectious issues. Please clarify below, in your clinical opinion. ( ) Ongoing lumbar spine infectious issues that were treated during this admission included Lumbar Discitis, Osteomyeltis and Epidural Abscess. ( x) Ongoing lumbar spine infectious issues that were treated during this admission included only Lumbar Discitis and osteomyelitis Physician's Response(s): Thank you Keya Frederick Principal Diagnosis: "_that condition established after study, to be chiefly responsible for occasioning the admission of the patient to the hospital for care." Co-Existing Principal Diagnosis: "_when two or more diagnoses equally meet the criteria for principal diagnosis as determined by the circumstances of admission, diagnostic work up, and/or therapy provided, and the Alphabetic Index, Tabular List, or another coding guideline does not provide sequencing direction, any one of the diagnoses may be sequenced first." "When the physician has documented what appears to be a current diagnosis in the body of the record, but has not included the diagnosis in the final diagnostic statement, the physician should be asked whether the diagnosis should be added." ([facility] 2 QTR90. p3-4)
--- NOTE | 2017-12-04 07:14 | EDITING REQUIRED CODING QUERY ---
CODING QUERY To promote full compliance with coding requirements relating to patient care, provider participation is requested in all cases of community educator uncertainty. Please assist us with the question(s) below: Coding Question(s): On previous query you clarified that the ongoing lumbar spinal infectious issues being treated during this admission were Lumbar Discitis and Osteomyelitis. Please clarify regarding these below for correct coding of the diagnosis as there was documentation of previous spinal surgeries and Diabetes. ( ) Spinal Infections Lumbar Discitis and Osteomyelitis were likely postoperative complications from recent spinal surgery ( x ) Spinal Infections Lumbar Discitis and Osteomyelitis were likely related to Diabetes ( ) Spinal Infections Lumbar Discitis and Osteomyelitis with Unknown etiology ( ) Spinal Infections Lumbar Discitis and Osteomyelitis with Other Cause: Please Specify Physician's Response(s): Thank you Keya Frederick Principal Diagnosis: "_that condition established after study, to be chiefly responsible for occasioning the admission of the patient to the hospital for care." Co-Existing Principal Diagnosis: "_when two or more diagnoses equally meet the criteria for principal diagnosis as determined by the circumstances of admission, diagnostic work up, and/or therapy provided, and the Alphabetic Index, Tabular List, or another coding guideline does not provide sequencing direction, any one of the diagnoses may be sequenced first." "When the physician has documented what appears to be a current diagnosis in the body of the record, but has not included the diagnosis in the final diagnostic statement, the physician should be asked whether the diagnosis should be added." (Source [facility] 2 QTR90. p3-4)
== END 2017-11-29 16:43 | disposition home health service (06) | DRG 70 ==
LOC: EDBD 10:03 → C.EDC 10:04 → C.MSN 15:27 → EDBEDREQ 15:40 → CANRESERV 15:43 → ENRESERV 15:43 → EDBEDREQSVC 16:11 → ENRESERV 16:39 → OBSVTOIN 11-25 11:59
PROVIDERS: ADMIT Internal Medicine; ATTEND Family Medicine
DX: G93.41 Metabolic encephalopathy (principal); J96.21 Acute and chronic respiratory failure with hypoxia; M86.9 Osteomyelitis, unspecified; M46.36 Infection of intervertebral disc (pyogenic), lumbar region; J90 Pleural effusion, not elsewhere classified; I50.32 Chronic diastolic (congestive) heart failure; I13.0 Hypertensive heart and chronic kidney disease with heart failure and stage 1 through stage 4 chronic kidney disease, or unspecified chronic kidney disease; E11.69 Type 2 diabetes mellitus with other specified complication; M50.30 Other cervical disc degeneration, unspecified cervical region; G92 Toxic encephalopathy; T42.75XA Adverse effect of unspecified antiepileptic and sedative-hypnotic drugs, initial encounter; G47.33 Obstructive sleep apnea (adult) (pediatric); D50.9 Iron deficiency anemia, unspecified; D63.1 Anemia in chronic kidney disease; E87.6 Hypokalemia; R25.2 Cramp and spasm; G20 Parkinson's disease; I48.0 Paroxysmal atrial fibrillation; E11.22 Type 2 diabetes mellitus with diabetic chronic kidney disease; N18.9 Chronic kidney disease, unspecified; J44.9 Chronic obstructive pulmonary disease, unspecified; R13.10 Dysphagia, unspecified; I25.10 Atherosclerotic heart disease of native coronary artery without angina pectoris; I25.2 Old myocardial infarction; N40.0 Benign prostatic hyperplasia without lower urinary tract symptoms; F17.200 Nicotine dependence, unspecified, uncomplicated; Z51.81 Encounter for therapeutic drug level monitoring; Z79.899 Other long term (current) drug therapy; Z79.82 Long term (current) use of aspirin; Z86.14 Personal history of Methicillin resistant Staphylococcus aureus infection; Z87.01 Personal history of pneumonia (recurrent); Z95.1 Presence of aortocoronary bypass graft; Z86.010 Personal history of colon polyps; Z88.8 Allergy status to other drugs, medicaments and biological substances; Z91.030 Bee allergy status; Z82.49 Family history of ischemic heart disease and other diseases of the circulatory system

== ENCOUNTER → 2017-12-01 | Outpatient (CLI) | payer OTHER ==
[~2017-12-01] MED LIST changes: +DAPT500I IV; +DOCU-94 PO; -FURO-85 PO; +FURO20TA PO; -IPRA-64 INH; -LEVA1.255 PO; +LUBI8CAP4 PO; +MCRK20 PO; +MGNO400 PO; -SPRIN/30 PO; +TIOT1SPR INH; +XPNINS125 INH
[2017-12-01 13:07] LABS: HEMATOCRIT 33.3 % (42-52); HEMOGLOBIN 10.3 g/dL (14.0-18.0); MEAN CORPUSCULAR HEMOGLOBIN 28.8 pg (25-34); MEAN CORPUSCULAR HGB CONC 30.9 g/dl (32-36); MEAN PLATELET VOLUME 10.7 fL (7.4-10.4); PLATELET COUNT 258 K/uL (130-400); RED CELL DISTRIBUTION WIDTH CV 16.3 % (11.5-14.5); RED CELL DISTRIBUTION WIDTH SD 55.4 fL (36.4-46.3); WHITE BLOOD COUNT 13.93 K/uL (4.8-10.8)
[2017-12-01 14:02] LABS: BLOOD UREA NITROGEN 16 mg/dl (7-18); CALCIUM 8.9 mg/dl (8.5-10.1); CARBON DIOXIDE 27 mmol/L (21-32); CREATININE 1.27 mg/dl (0.60-1.40); GLUCOSE 98 mg/dl (70-99); POTASSIUM 3.9 mmol/L (3.5-5.1); SODIUM 136 mmol/L (136-145)
== END | disposition home or self-care (01) ==
LOC: C.LABSPEC 16:47
PROVIDERS: ATTEND Internal Medicine Infectious Disease
DX: B95.62 Methicillin resistant Staphylococcus aureus infection as the cause of diseases classified elsewhere (principal)

== ENCOUNTER → 2017-12-08 | Outpatient (CLI) | payer OTHER ==
[2017-12-08 12:51] LABS: HEMATOCRIT 33.8 % (42-52); HEMOGLOBIN 10.3 g/dL (14.0-18.0); MEAN CELL VOLUME 94.2 fL (80-100); MEAN CORPUSCULAR HEMOGLOBIN 28.7 pg (25-34); MEAN CORPUSCULAR HGB CONC 30.5 g/dl (32-36); MEAN PLATELET VOLUME 10.5 fL (7.4-10.4); PLATELET COUNT 274 K/uL (130-400); RED CELL DISTRIBUTION WIDTH CV 16.4 % (11.5-14.5); RED CELL DISTRIBUTION WIDTH SD 56.5 fL (36.4-46.3); WHITE BLOOD COUNT 11.54 K/uL (4.8-10.8)
[2017-12-08 13:23] LABS: BLOOD UREA NITROGEN 14 mg/dl (7-18); CALCIUM 8.9 mg/dl (8.5-10.1); CARBON DIOXIDE 28 mmol/L (21-32); CREATININE 1.29 mg/dl (0.60-1.40); GLUCOSE 83 mg/dl (70-99); POTASSIUM 3.9 mmol/L (3.5-5.1); SODIUM 139 mmol/L (136-145)
== END | disposition home or self-care (01) ==
LOC: C.LABSPEC 16:20
PROVIDERS: ATTEND Internal Medicine Infectious Disease
DX: M46.40 Discitis, unspecified, site unspecified (principal); M86.9 Osteomyelitis, unspecified; B95.62 Methicillin resistant Staphylococcus aureus infection as the cause of diseases classified elsewhere